=== PATIENT | female | born 1955 | race Two or more races ===

== ENCOUNTER 2021-10-30 09:39 | Outpatient (REF) | payer MEDICARE, MEDICAID, SELFPAY ==
[2021-10-30 11:17] LABS: Hematocrit 41.1 % (37.0-47.0); Hemoglobin 13.3 g/dl (12.0-16.0); Mean Corpuscular HGB Conc 32.4 g/dl (31.0-35.0); Mean Corpuscular Hemoglobin 27.4 pg (27.0-33.0); Mean Corpuscular Volume 84.7 fL (80.0-98.0); Mean Platelet Volume 10.4 fL (9.4-12.3); Platelet Count 265 X10*3/uL (160-400); Red Blood Count 4.85 X10*6/uL (4.20-5.50); Red Cell Distribution Width 13.5 % (11.0-16.0); White Blood Count 6.8 X10*3/uL (4.8-10.8)
[2021-10-30 12:20] LABS: TSH reflex Free T4 2.53 uIU/mL (0.32-4.0)
== END 2021-10-30 09:40 | disposition home or self-care (01) ==
LOC: HO.LAB 09:39
PROVIDERS: PCP Internal Medicine; Visit Provider Internal Medicine Cardiovascular Disease
DX: R00.2 Palpitations (principal); R06.00 Dyspnea, unspecified
CPT/HCPCS: 36415; 84443; 85027; 93005; 99202

== ENCOUNTER 2021-11-19 09:00 | Outpatient (REF) | payer OTHER, SELFPAY ==
--- NOTE | 2021-11-19 09:51 | HM_ITS ---
* Total monitoring time 4 days and 13 hours. * Underlying rhythm is sinus. Average rate 84/Min. Range 65 to 135/Min. * Very rare supraventricular and ventricular ectopy with minimal burden. * No significant pauses. * Patient diary not submitted. MTDD
--- NOTE | 2021-11-19 12:14 | PFT_ITS ---
INDICATION: Dyspnea. SPIROMETRY: FEV1 to FVC of 81% with an FEV1 of 2.06 L, which is 85% predicted; an FVC of 2.53 L, which is 82% predicted. No significant response to bronchodilators noted. Maximum voluntary ventilation 80% predicted. LUNG VOLUMES: Total lung capacity 86% predicted with an expiratory reserve volume of 37% predicted. DIFFUSION CAPACITY: DLCO 71% predicted. COMPARISONS: None. INTERPRETATION: No obstructive, nor restrictive ventilatory defects identified. No significant response to bronchodilators noted and normal maximum voluntary ventilation. Lung volumes are normal except for decrease in the expiratory reserve volume. The patient does have a mild isolated diffusion impairment. Should correct for hemoglobin. Otherwise, clinical correlation warranted. Arnol Hagen MD MR/MODL / [id number]
== END 2021-11-19 09:01 | disposition home or self-care (01) ==
LOC: HO.RESP 09:00
PROVIDERS: PCP Internal Medicine; Visit Provider Internal Medicine Cardiovascular Disease
DX: R06.00 Dyspnea, unspecified (principal); R00.2 Palpitations
CPT/HCPCS: 93242; 94060; 94727; 94729

== ENCOUNTER → 2022-01-27 13:51 | Outpatient (BNVA) | payer OTHER, SELFPAY | PROVIDERS: PCP Internal Medicine; Visit Provider Internal Medicine Cardiovascular Disease | DX: R00.2 Palpitations (principal); R06.00 Dyspnea, unspecified | CPT/HCPCS: 99212 ==

== ENCOUNTER → 2022-02-04 10:18 | Outpatient (REF) | payer OTHER, SELFPAY ==
--- NOTE | 2022-02-04 10:21 | CA_ITS ---
Acquisition Time: 2022-02-04 10:31:32 Total Exercise Time: 00:04:30 Test Indications: CP Medications: ALBUTEROL ASA ATORVASTATIN FAMOTIDINE FLONASE METOPROLOL Protocol: ANTHONY Max HR: 155 BPM 100% of Pred: 155 BPM Max BP: 196/040 mmHG Max Work Load: 6.3 METS Exercise stress test with exercise 4 min 30 sec of Anthony protocol, achieving 100% MPHR, with report of 7/10 mid chest burning and moderate sob, with rare isolated PAC, one PAC correlated with her feeling of heart palpitation, with normotensive response to exercise, with EKG changes meeting criteria for ischemia inferolateral leads. In recovery her breathing quickly improved and chest discomfort gradually lessened and resolved. Test reviewed with Dr Sarmiento Msjulia sent to Dr Camacho, her primary cloud automation tester. Referred By: Yosi Camacho Overread By: BHARATH QUINTANA
== END ==
LOC: HO.CARD 10:18
PROVIDERS: PCP Internal Medicine; Visit Provider Internal Medicine Cardiovascular Disease
DX: R06.00 Dyspnea, unspecified (principal)
CPT/HCPCS: 93017

== ENCOUNTER 2022-03-31 09:27 | Outpatient (REF) | payer OTHER, SELFPAY ==
[2022-03-31 09:53] LABS: Hematocrit 42.1 % (37.0-47.0); Hemoglobin 13.5 g/dl (12.0-16.0); Mean Corpuscular HGB Conc 32.1 g/dl (31.0-35.0); Mean Corpuscular Hemoglobin 27.7 pg (27.0-33.0); Mean Corpuscular Volume 86.3 fL (80.0-98.0); Mean Platelet Volume 10.7 fL (9.4-12.3); Platelet Count 276 X10*3/uL (160-400); Red Blood Count 4.88 X10*6/uL (4.20-5.50); Red Cell Distribution Width 13.2 % (11.0-16.0); White Blood Count 6.4 X10*3/uL (4.8-10.8)
[2022-03-31 09:56] LABS: Prothrombin Time 11.7 SEC (10.0-13.1)
[2022-03-31 10:50] LABS: Anion Gap 10 (12-20); Blood Urea Nitrogen 19 mg/dL (9-16); Calcium 9.9 mg/dL (8.4-10.2); Carbon Dioxide 28 mmol/L (22-29); Chloride 107 mmol/L (96-108); Estimated Glomerular Filt Rate 58; Glucose Random 90 mg/dL (60-115); Potassium 4.8 mmol/L (3.3-5.1); Sodium 140 mmol/L (135-145)
== END 2022-03-31 09:28 | disposition home or self-care (01) ==
LOC: HO.LAB 09:27
PROVIDERS: PCP Internal Medicine; Visit Provider Internal Medicine Cardiovascular Disease
DX: R94.39 Abnormal result of other cardiovascular function study (principal)
CPT/HCPCS: 36415; 80048; 85027; 85610

== ENCOUNTER 2022-04-28 13:50 | Outpatient (REF) | payer OTHER, SELFPAY ==
--- NOTE | 2022-04-28 17:07 | PFT_ITS ---
Forced vital capacity 80%, FEV1 80%, FEV1/FVC ratio is 78. [id number] 73% and MVV 91%. Post bronchodilator therapy, there is no significant change. Total lung capacity 85%. Residual volume 85%. Diffusion capacity 71%. CONCLUSION: Normal pulmonary function test and there is no evidence of any obstructive or restrictive pulmonary disorder. MD KYLER Mcdaniel/RANJANA / [id number]
== END 2022-04-28 13:51 | disposition home or self-care (01) ==
LOC: HO.RESP 13:50
PROVIDERS: PCP Internal Medicine; Visit Provider Internal Medicine Cardiovascular Disease
DX: R06.09 Other forms of dyspnea (principal)
CPT/HCPCS: 94060; 94727; 94729

== ENCOUNTER → 2022-06-05 15:28 | Outpatient (BNVA) | payer OTHER, SELFPAY | PROVIDERS: PCP Internal Medicine; Referring Provider Internal Medicine; Visit Provider Nurse Practitioner Family | DX: R06.09 Other forms of dyspnea (principal); R94.39 Abnormal result of other cardiovascular function study; R07.89 Other chest pain; I49.1 Atrial premature depolarization; Z98.890 Other specified postprocedural states | CPT/HCPCS: 93005; 99212 ==

== ENCOUNTER 2023-06-24 12:48 | Outpatient (AMB) | payer OTHER, SELFPAY ==
[2023-06-24 12:52] VITALS: BP 140/62; PULSE 86; BMI 27.6
--- NOTE | 2023-06-24 12:52 | A.OFFVIS_ITS ---
Vital Signs 06/24/23 12:52 Height 5 ft 5 in Weight 165 lb 12.602 oz BMI 27.6 BP 140/62 H Blood Pressure Location Lt brachial Position Sitting Pulse 86 Intake Visit Reasons: 1 yr f/up Photo Print Specialist Required: No Accompanied by: Self / Same As Patient Allergies No Known Allergies Allergy (Verified 06/05/22 15:37) Medication List - Last Reconciled 06/24/23 by Yosi Camacho MD acetaminophen 1,000 mg PO TID PRN albuterol sulfate 90 mcg/actuation (ProAir HFA) 2 puffs inhalation Q6H PRN aspirin 81 mg PO DAILY atorvastatin 40 mg PO BEDTIME cholecalciferol (vitamin D3) 50 mcg PO DAILY famotidine 40 mg PO BEDTIME fluticasone propionate 50 mcg/actuation 2 sprays intranasal DAILY lidocaine 5% 1 patch topical DAILY montelukast 10 mg PO DAILY nabumetone 500 mg PO QAM HPI Comments Details: 67-year-old female who is here for palpitations and dyspnea. She had extensive workup done in 2019 including Holter monitoring which did not show any arrhythmia. She also had cardiac catheterization with IFR and CFR coronary arteries showing no epicardial or microvascular disease. She is following with pulmonology and has been told that she does not have any significant pulmonary disease. She is here for follow-up today. She is complaining of dizziness and is describing vertigo. She had ear issues and previous tympanic membrane reconstruction on the right side. She is denying any tinnitus but is describing vertigo clearly. She also is getting palpitations. She is complaining of dyspnea with activities. A month ago she had was treated for pneumonia. Her blood workup and TSH was normal. We also did Holter monitoring for 4 days during which she had palpitations but Holter did not show any significant arrhythmia. I have explained all the testing to the patient in detail. 06/24/23: She returns for follow-up. She is saying that she gets palpitations when she is having asthma attack with chest tightness. She is using inhalers currently and is following with pulmonology. [facility] Surgical History S/P cardiac cath History of ear surgery History of section History of tonsillectomy History of cardiac cath Family History Mother Heart disease Cancer Father Stroke Social History Household Members: Children Household Members Other:: Son Alcohol intake: never Patient Tobacco Use Status: Never used Tobacco Current occupational status: retired Review of Systems Const Denies chills, Denies fatigue, Denies fever(s), Denies frequent falls, Denies weakness, Denies weight gain and Denies weight loss ENT Denies dizziness Card Denies chest pain, Denies leg edema, Denies lightheadedness, Denies palpitations, Denies dyspnea and Denies dyspnea on exertion Resp Denies cough, Denies dyspnea and Denies dyspnea on exertion GI Denies hematochezia Musc Denies abnormal gait, Denies muscle weakness, Denies numbness, Denies radiating pain into limb and Denies tingling Neuro Denies abnormal gait, Denies dizziness, Denies frequent falls, Denies numbness, Denies tingling and Denies weakness Endo Denies fatigue and Denies palpitations Physical Exam Vital Signs: Last Vital Signs Pulse 86 06/24/23 12:52 BP 140/62 H 06/24/23 12:52 BMI result Body Mass Index 27.6 GENERAL APPEARANCE: in no acute distress, pleasant. NECK: no carotid bruit, no jugular venous distention. SKIN: no suspicious lesions, warm and dry. HEART: no murmurs, regular rate and rhythm. LUNGS: clear to auscultation bilaterally. ABDOMEN: soft, nontender. EXTREMITIES: no edema. PERIPHERAL PULSES: equal. NEUROLOGIC: No gross deficits, AAO X 3 Office Procedures EKG Details: Sinus rhythm 86 beats per minute, normal axis, normal ECG, QTC 439 milliseconds. [id number], Complete Assessment & Plan Assessment & Plan (1) Dyspnea: Code(s): R06.00 - Dyspnea, unspecified Category: Medical (2) Palpitations: Code(s): R00.2 - Palpitations Category: Medical Plan Pleasant 67-year-old female who is here for follow-up. She previously had extensive workup which did not reveal any obvious cardiovascular issues. She underwent Holter monitoring recently which again did not show any arrhythmia to explain her palpitations. She is saying when she walks she gets out of breath and gets significant palpitations. It appears these symptoms are related to asthma and maybe anxiety due to asthma attack. No objective evidence of any cardiovascular issues so far. She will see us back in 1 year. Thank you for allowing me to participate in the care of your patient. Please feel free to contact me if you have any questions. Coding Level of Care Code Est Pt Level 3 (97727) Diagnoses Dyspnea R06.00 Palpitations R00.2 CPT Codes EKG - CPT: 73836-[id number], Complete ([id number])
== END 2023-06-24 13:19 | disposition home or self-care (01) ==
PROVIDERS: Visit Provider Internal Medicine Cardiovascular Disease
DX: R06.00 Dyspnea, unspecified (principal); R00.2 Palpitations
CPT/HCPCS: 93010; 99213

== ENCOUNTER → 2023-06-24 12:48 | Outpatient (BNVA) | payer OTHER, SELFPAY | PROVIDERS: Visit Provider Internal Medicine Cardiovascular Disease | DX: R06.00 Dyspnea, unspecified (principal); R00.2 Palpitations | CPT/HCPCS: 93005; 99212 ==

== ENCOUNTER 2024-07-11 10:28 | Outpatient (AMB) | payer OTHER, SELFPAY ==
--- NOTE | 2024-07-11 10:46 | MHC.OFFVIS ---
Vital Signs 07/11/24 10:49 Height 5 ft 5 in Weight 164 lb 7.437 oz BMI 27.4 BP 130/60 Blood Pressure Location Lt brachial Position Sitting Pulse 83 Pulse Source Monitor Intake Visit Reasons: 1 yr f/up (rs) Intake Note: 1 yr f/up Maintenance Helper Required: No Accompanied by: Self / Same As Patient Allergies No Known Allergies Allergy (Verified 06/05/22 15:37) Medication List - Last Reconciled 07/11/24 by Yosi Camacho MD acetaminophen 1,000 mg PO TID PRN albuterol sulfate 90 mcg/actuation (ProAir HFA) 2 puffs inhalation Q6H PRN aspirin 81 mg PO DAILY atorvastatin 40 mg PO BEDTIME cholecalciferol (vitamin D3) 50 mcg PO DAILY famotidine 40 mg PO BEDTIME fluticasone propionate 50 mcg/actuation 2 sprays intranasal DAILY montelukast 10 mg PO DAILY nabumetone 500 mg PO QAM HPI Comments Details: 68-year-old female who is here for palpitations and dyspnea. She had extensive workup done in 2019 including Holter monitoring which did not show any arrhythmia. She also had cardiac catheterization with IFR and CFR coronary arteries showing no epicardial or microvascular disease. She is following with pulmonology and has been told that she does not have any significant pulmonary disease. She is here for follow-up today. She is complaining of dizziness and is describing vertigo. She had ear issues and previous tympanic membrane reconstruction on the right side. She is denying any tinnitus but is describing vertigo clearly. She also is getting palpitations. She is complaining of dyspnea with activities. A month ago she had was treated for pneumonia. Her blood workup and TSH was normal. We also did Holter monitoring for 4 days during which she had palpitations but Holter did not show any significant arrhythmia. I have explained all the testing to the patient in detail. 06/24/23: She returns for follow-up. She is saying that she gets palpitations when she is having asthma attack with chest tightness. She is using inhalers currently and is following with pulmonology. 07/11/2024: she is here for follow-up. She is saying that since he has started using the inhalers her breathing is improved. Denying any chest discomfort. Overall feeling much better compared to before. PFSH Surgical History S/P cardiac cath History of ear surgery History of section History of tonsillectomy History of cardiac cath Family History Mother Heart disease Cancer Father Stroke Social History Household Members: Children Household Members Other:: Son Alcohol intake: never Patient Tobacco Use Status: Never used Tobacco Current occupational status: retired Review of Systems Const Denies chills, Denies fatigue, Denies fever(s), Denies frequent falls, Denies weakness, Denies weight gain and Denies weight loss ENT Denies dizziness Card Denies chest pain, Denies leg edema, Denies lightheadedness, Denies palpitations, Denies dyspnea and Denies dyspnea on exertion Resp Denies cough, Denies dyspnea and Denies dyspnea on exertion GI Denies hematochezia Musc Denies abnormal gait, Denies muscle weakness, Denies numbness, Denies radiating pain into limb and Denies tingling Neuro Denies abnormal gait, Denies dizziness, Denies frequent falls, Denies numbness, Denies tingling and Denies weakness Endo Denies fatigue and Denies palpitations Physical Exam Vital Signs: Last Vital Signs Pulse 83 07/11/24 10:49 BP 130/60 07/11/24 10:49 BMI result Body Mass Index 27.4 GENERAL APPEARANCE: in no acute distress, pleasant. NECK: no carotid bruit, no jugular venous distention. SKIN: no suspicious lesions, warm and dry. HEART: no murmurs, regular rate and rhythm. LUNGS: clear to auscultation bilaterally. ABDOMEN: soft, nontender. EXTREMITIES: no edema. PERIPHERAL PULSES: equal. NEUROLOGIC: No gross deficits, AAO X 3 Office Procedures EKG Details: Sinus rhythm with occasional premature ventricular complexes, normal axis, QTC 425 milliseconds. [id number], Complete Assessment & Plan Assessment & Plan (1) Dyspnea: Code(s): R06.00 - Dyspnea, unspecified Category: Medical (2) Palpitations: Code(s): R00.2 - Palpitations Category: Medical Plan Pleasant 68-year-old female who is here for follow-up. She previously had extensive workup which did not reveal any obvious cardiovascular issues. She underwent Holter monitoring recently which again did not show any arrhythmia to explain her palpitations. She continues to have some palpitation but overall is feeling better. She is saying her breathing is improved with inhalers at this stage clinically stable and feeling better. She will see us back in a year. Thank you for allowing me to participate in the care of your patient. Please feel free to contact me if you have any questions. Coding Level of Care Code Est Pt Level 3 (51842) Diagnoses Dyspnea R06.00 Palpitations R00.2 CPT Codes EKG - CPT: 91617-[id number], Complete ([id number])
[2024-07-11 10:49] VITALS: BP 130/60; PULSE 83; BMI 27.4
--- OUTSIDE RECORDS SUMMARY | 2024-07-11 11:04 | XMS_ITS | Clinical Summary ---
Author Organization [employer] Address [address] [place] [address] Care Team Providers Care Sheltered Workshop Executive Director Name Role Phone Jessy Andersen GEOVANNA Primary Care Provider [phone] Allergies Active Allergy Reactions Criticality Noted Date Comments Amoxicillin-Pot Clavulanate Dizziness,Nausea,Vomiting Medi um 03/14/2024 Medications cholecalciferol (Vitamin D3) 200 Unit tablet split tablet TAKE 1 CAPSULE BY MOUTH EVERY DAY 023 Active acetaminophen (Tylenol) 500 MG tablet Take 1,000 mg by mouth if needed in the morning, at noon, and at bedtime. 022 Active albuterol 108 (90 Base) MCG/ACT inhaler TAKE 2 PUFFS BY MOUTH EVERY 6 HOURS NEEDED 022 Active ciclopirox (Penlac) 8 % solution Apply topically daily. 023 Active famotidine (Pepcid) 40 MG tablet TAKE 1 TABLET BY MOUTH EVERYDAY AT BEDTIME ORALLY ONCE A DAY 30 DAYS 023 Active montelukast (Singulair) 10 MG tablet Take 10 mg by mouth in the morning. 023 Active dicyclomine (Bentyl) 10 MG capsule Take 10 mg by mouth if needed in the morning and at bedtime. 024 Active Diclofenac Sodium 1 % gel APPLY 4 GRAMS TO EACH KNEE UP TO 4 TIMES DAILY NEEDED 024 Active atorvastatin (Lipitor) 20 MG tabletIndications :Hyperlipidemia, unspecified hyperlipidemia type Take 1 tablet (20 mg) by mouth at bedtime. 90 tablet 3 024 2024 Active Aspirin Low Dose 81 MG EC tabletIndications :TIA (transient ischemic attack),Atheroscl erosis of sycuan coronary artery of sycuan heart without angina pectoris TAKE 1 TABLET (81 MG) BY MOUTH IN THE MORNING 90 tablet 3 024 Active ipratropium-albut thierno (Duo-Neb) 0.5-2.5 mg/3 mL nebulizer solutionIndicatio ns:Mild intermittent asthma with exacerbation Take 3 mL by nebulization if needed in the morning, at noon, in the evening, and at bedtime for wheezing. 180 mL 025 Active Nebulizer miscIndications:M ild intermittent asthma with exacerbation 1 Units if needed (asthma). 1 each 025 Active Respiratory Therapy Supplies (Nebulizer Mask Adult/Tubing) miscIndications:M ild intermittent asthma with exacerbation 1 Units Every 4-6 hours as needed (asthma). 1 each 025 Active nabumetone (Relafen) 500 MG tabletIndications :Fibromyalgia TAKE 1 TABLET (500 MG) BY MOUTH ONCE PER DAY. TAKE WITH FOOD 90 tablet 025 Active fluticasone (Flonase) 50 MCG/ACT nasal spray ADMINISTER 1 SPRAY INTO EACH NOSTRIL ONCE PER DAY. SHAKE GENTLY. CLEAN TIP AND REPLACE CAP. 48 mL 1 025 Active fluticasone (Flonase) 50 MCG/ACT nasal spray Administer 1 spray into each nostril Once per day. Shake gently. Before first use, prime pump. After use, clean tip and replace cap. 16 g 3 025 2024 Discontinued Active Problems Problem Noted Date Diagnosed Date Fibromyalgia 12/23/2023 Elevated rheumatoid factor 12/23/2023 Primary osteoarthritis of both hips 09/17/2023 Chronic bilateral low back pain without sciatica 09/17/2023 Gastroesophageal reflux dise ase with esophagitis without hemorrhage 09/17/2023 TIA (transient ischemic attack) 11/11/2022 Mild persistent asthma without complication 110 04/2021 Atherosclerosis of coronary artery of sycuan hea rt 08/01/2021 Hyperlipidemia 08/01/2021 Overview (11/10/2022): Last Assessment & Plan: Controlled on meds Degenerative disc disease, lumbar 01/21/2019 Primary osteoarthritis of both knees 01/21/2019 Resolved Problems Problem Noted Date Diagnosed Date Resolved Date Palpitations 08/01/2021 11/11/2022 Overview (11/10/2022): Last Assessment & Plan: Unclear etiology Patient currently being evaluated by Cardiology for this Encounters Date Type Department Care Team Description 06/22/2024 10:20 AM EDT Office Visit [facility] [address] [place] [address] [facility] Memory problem (Primary Dx); Balance problem; Tremor; Moderate persistent asthma without complication; Fibromyalgia 06/14/[address] [facility] [address] [place] [address] Jessy Andersen FNP from Last 3 Months Immunizations Name Administration Dates Next Due Influenza injectable quadriv alent preservative free 10/29/2015,01/19/2015 Pfizer Covid-19 Vaccine 12+ 02/05/2021,,06/11/2020 Tdap 10/12/2014 Family History Medical History Relation Name Comments Coronary artery disease Brother Stroke Father Liver cancer Mother Diabetes Sister Kidney disease Sister Autism Son Developmental delay Son Seizures Son Relation Name Status Comments Brother Father Mother Sister Son Social History Tobacco Use Types Packs/Day Years Used Date Smoking Tobacco: Never Smokeless Tobacco: Never Tobacco Cessation:Counseling Given: Not Answered Alcohol Use Standard Drinks/Week Comments Never 0 (1 standard drink = 0.6 oz pur e alcohol) Housing Stability Answer Date Recorded What is your housing situation today? I have [place] 09/17/[address] you li ve. Do you have problems with any of the following? None of the above 09/17/2023 Food Insecurity Answer Date Recorded Within the past 12 months, y ou worried that your food would run out before you got money to buy more: Never True 09/17/2023 Within the past 12 months,th e food you bought just didn't last and you didn't have enough money to get more: Never True Transportation Answer Date Recorded In the past 12 months, has l ack of transportation kept you from medical appts, meetings, work or from getting things needed for daily living? No 09/17/2023 Utilities Answer Date Recorded In the past 12 months, has t he electric, gas, oil or water company threatened to shut off services in your home? No 09/17/2023 Depression Answer Date Recorded Patient Health Questionnaire-2 Score 0 06/22/2024 Internet Access Answer Date Recorded Internet Access Q1 Yes 11/02/2023 Internet Access Q2 Not on file 11/02/2023 Comments Unknown Sex and Gender Information Value Date Recorded Sex Assigned at Female 10/01/2022 1:17 PM EDT Legal Sex Female 1:15 PM EDT Gender Identity Female 10/01/2022 1:17 PM EDT Sexual Orientation Straight 10/01/2022 1: 17 PM EDT Last Filed Vital Signs Vital Sign Reading Time Taken Comments Blood Pressure 133/73 06/22/2024 10:05 AM EDT Pulse 82 06/22/2024 10:05 AM EDT Temperature 37.1 ??C (98.8 ??F) 06/22/2024 1 0:05 AM EDT Respiratory Rate 18 11/10/2022 2:48 PM EDT Oxygen Saturation 96% 06/22/2024 10: 05 AM EDT Inhaled Oxygen Concentration - - Weight 76.1 kg (167 lb 12.8 oz) 025 10:05 AM EDT Height 162.6 cm (5' 4 ) 06/22/2024 10:0 5 AM EDT Body Mass Index 28.8 06/22/2024 10:05 AM EDT Plan of Treatment Upcoming Encounters Date Type Department Care Team (Late st Contact Info) Description 09/22/2024 11:40 AM EDT Office Visit [facility] [address] [place] [address] [facility] [address] [place] [address] Health Maintenance Due Date Last Done Comments CT Colonography 1956 FIT DNA/Cologuard 1956 FIT 1956 FOBT 1956 Sigmoidoscopy 1956 Alcohol/Substance Use Screening 1968 Hepatitis C Screening 1974 RSV Patients and Patients Aged 60 years or older (1 - Risk 60-74 years 1-dose series) 2016 COVID-19 Vaccine ( season) 2023 02/05/2021, 07/02/2020, 06/11/2020 Influenza Vaccine (#1) 2023 10/29/2015, 2014 Pneumococcal Vaccine: 50+ Years (1 of 2 - PCV) 09/16/2024 Postponed from 10/20/1975 (Patient Refused) Zoster Vaccines (1 of 2) 09/16/2024 Pos tponed from 2006 (Patient Refused) DTaP/Tdap/Td Vaccines (2 - Td or Tdap) 10/12/2024 10/12/2014 Mammogram 02/03/2025 02/03/2023, 06/2022, 02/03/2023, Additional history exists Depression Screening 06/22/2025 06/22/2024, 06/23/19 25 SDOH Screening 06/22/2025 06/22/2024 Tobacco Screening 06/22/2025 06/22/2024 Colonoscopy 08/12/2028 08/12/2018 Colorectal Cancer Screening 08/12/2028 Lipid Panel 12/15/2028 12/16/2023, 020 10/2023, 11/13/2022 HIB Vaccines Aged Out No longer eligi ble based on patient's age to complete this topic HPV Vaccines Aged Out No longer eligi ble based on patient's age to complete this topic Hepatitis A Vaccines Aged Out No long er eligible based on patient's age to complete this topic Hepatitis B Vaccines Aged Out No long er eligible based on patient's age to complete this topic IPV Vaccines Aged Out No longer eligi ble based on patient's age to complete this topic Meningococcal Vaccine Aged Out No curt steven eligible based on patient's age to complete this topic RSV under 20 months Aged Out No longe r eligible based on patient's age to complete this topic Rotavirus Vaccines Aged Out No longer eligible based on patient's age to complete this topic Procedures Procedure Name Priority Date/Time Associated Diagnosis Comments BASIC METABOLIC PANEL Routine 07/04/2024 Memory problem RPR (DX) W/REFL TITER AND CONFIRMATORY TESTING Routine 07/04/2024 Memory problem VITAMIN B12 Routine 07/04/2024 Memory problem TSH Routine 07/04/2024 Memory problem LIPID PANEL, STANDARD Routine 12/16/2023 Hyperlipidemia, unspecified hyperlipidemia type HM MAMMOGRAPHY Routine 02/03/2023 HM COLONOSCOPY Routine 08/12/2018 from Last 3 Months or Most Recently Relevant to Health Maintenance Results * RPR (Diagnosis) with Reflex to Titer??and Confirmatory Testing (07/04/2024) [facility] LAB BLOOD ORDERABLES Ana l Result Performing Organization Address [facility] Co de Phone Number EXTERNAL LAB * TSH (07/04/2024) Blood Venous blood specimen / Unknown [facility] LAB BLOOD ORDERABLES Ana l Result Performing Organization Address [facility] Co de Phone Number EXTERNAL LAB * Vitamin B12 (07/04/2024) Blood Venous blood specimen / Unknown [facility] LAB BLOOD ORDERABLES Ana l Result Performing Organization Address [facility]/ZIP Co de Phone Number EXTERNAL LAB * Basic Metabolic Panel (07/04/2024) Blood Venous blood specimen / Unknown [facility] LAB BLOOD ORDERABLES Ana l Result Performing Organization Address [place]/[facility]/ZIP Co de Phone Number EXTERNAL LAB * Lipid Panel, Standard (12/16/2023) Blood Venous blood specimen / Unknown [facility] LAB BLOOD ORDERABLES Ana l Result EXTERNAL LAB * Mammography (02/03/2023) Anatomical Region Laterality Modality Other [facility] Edited Result - Final * Colonoscopy (08/12/2018) Colonoscopy Normal Normal [facility] HEALTH MAINTENANCE Final Result from Last 3 Months or Most Recently Relevant to Health Maintenance Insurance [facility] STANDARD Care Teams Sheltered Workshop Executive Director Relationship Specialty Start Date End Date [facility] [address] [place] [address] PCP - General Family Medicine 10/01/22
--- OUTSIDE RECORDS SUMMARY | 2024-07-11 11:04 | XMS_ITS | Encounter Summary ---
Author Organization [employer] Address [address] [facility] [address] [place] [address] Care Team Providers Care Field Broomer Name Role Phone [facility] Primary Care Provider [phone] Encounter Details Date Type Department Care Team (Late st Contact Info) Description 08/12/2023 Orders Only [facility] [address] [place] [address] [facility] [address] [place] [address] Rheumatoid arthritis with positive rheumatoid factor, involving unspecified site ([facility]) Social History Tobacco Use Types Packs/Day Years Used Date Smoking Tobacco: Never Smokeless Tobacco: Never Alcohol Use Standard Drinks/Week Comments Never 0 (1 standard drink = 0.6 oz pur e alcohol) Depression Answer Date Recorded Patient Health Questionnaire-2 Score 0 11/10/2022 Comments Unknown Sex and Gender Information Value Date Recorded Sex Assigned at Female 10/01/2022 1:17 PM EDT Legal Sex Female 1:15 PM EDT Gender Identity Female 10/01/2022 1:17 PM EDT Sexual Orientation Straight 10/01/2022 1: 17 PM EDT documented as of this encounter Plan of Treatment Upcoming Encounters Date Type Department Care Team (Late st Contact Info) Description 09/22/2024 11:40 AM EDT Office Visit [facility] [address] [place] [address] [facility] [address] [place] [address] documented as of this encounter Procedures Procedure Name Priority Date/Time Associated Diagnosis Comments AMB REFERRAL TO RHEUMATOLOGY Routine 05/29/2023 Rheumatoid arthritis with positive rheumatoid factor, involving unspecified site ([facility]) documented in this encounter Results * Referral to Rheumatology (05/29/2023) [facility] OUTPATIENT REFERRAL ORDER GABBI Final Result documented in this encounter Visit Diagnoses Diagnosis Rheumatoid arthritis with positive rheumatoid factor, involving unspecified site ([facility]) documented in this encounter Care Teams Field Broomer Relationship Specialty Start Date End Date [facility] [address] [place] [address] PCP - General Family Medicine 10/01/22 documented as of this encounter
--- OUTSIDE RECORDS SUMMARY | 2024-07-11 11:04 | XMS_ITS | Encounter Summary ---
Author Organization [employer] Address [address] [facility] 7[address] [place] [address] Care Team Providers Care Php Mysql Web Developer Name Role Phone [facility] Primary Care Provider [phone] Encounter Details Date Type Department Care Team (Late st Contact Info) Description 02/06/2023 Orders Only [facility] Information Management [address] [place] [address] [place], [place] [facility] [address] [place] [address] Social History Tobacco Use Types Packs/Day Years [...] Description 09/22/2024 11:40 AM EDT Office Visit [place] [facility] [address] [place] [address] [place], [place] [facility] [address] [place] [address] documented as of this encounter Procedures Procedure Name Priority Date/Time Associated Diagnosis Comments MAMMOGRAPHY Routine 02/03/2023 documented in this encounter Results * Mammography (02/03/2023) Anatomical Region Laterality Modality Other Jessy Andersen [facility] Result - Final documented in this encounter Visit Diagnoses Not on filedocumented in this encounter Care Teams Php Mysql Web Developer Relationship Specialty Start Date End Date Jessy Andersen FNP [address] [facility] [place] [address] PCP - General Family Medicine 10/01/22 documented as of this encounter
== END 2024-07-11 11:18 | disposition home or self-care (01) ==
LOC: HO.HCS 10:28
PROVIDERS: PCP Internal Medicine; Visit Provider Internal Medicine Cardiovascular Disease
DX: R06.00 Dyspnea, unspecified (principal); R00.2 Palpitations
CPT/HCPCS: 93010; 99213

== ENCOUNTER → 2024-07-11 10:28 | Outpatient (BNVA) | payer OTHER, SELFPAY | PROVIDERS: PCP Internal Medicine; Visit Provider Internal Medicine Cardiovascular Disease | DX: R06.00 Dyspnea, unspecified (principal); R00.2 Palpitations | CPT/HCPCS: 93005; 99212 ==

== ENCOUNTER 2024-08-29 09:28 | Outpatient (AMB) | payer OTHER, SELFPAY ==
--- NOTE | 2024-08-29 09:34 | MHC.OFFVIS ---
Vital Signs 08/29/24 09:35 Height 5 ft 5 in Weight 169 lb BMI 28.1 BP 118/86 Blood Pressure Location Rt brachial Position Sitting Pulse 83 Pulse Source Pulse Oximeter Pulse Oximetry (%) 98 Oxygen Delivery Method Room Air Intake Visit Reasons: ENP - Gait Instability, Tremor Intake Note: Patient referred for gait instability Allergies No Known Allergies Allergy (Verified 08/29/24 09:37) Medication List - Last Reconciled 08/29/24 by Brooke Pressley MD acetaminophen 1,000 mg PO TID PRN albuterol sulfate 90 mcg/actuation (ProAir HFA) 2 puffs inhalation Q6H PRN aspirin 81 mg PO DAILY atorvastatin 40 mg PO BEDTIME cholecalciferol (vitamin D3) 50 mcg PO DAILY famotidine 40 mg PO BEDTIME fluticasone propionate 50 mcg/actuation 2 sprays intranasal DAILY montelukast 10 mg PO DAILY nabumetone 500 mg PO QAM HPI Comments Details: 68y/o female comes for evaluation of memory issues, gait instability and tremors. she started noticing short term memory issues- more than 3 years ago.she has word recall difficulties. It is progressively worse in the past few years. she frequently jiménez her food so she is not cooking any more, she misplaces things and loses things etc. Driving is Ok for familiar places. she has trouble remembering names . she reports multiple mild head injuries since childhood mood is stable SLeep- ok , has loud snoring . No known family h/o dementia Tremors- she reports feeling inner tremors 2 years ago.she packer snot see tremors in her hands but feels like her whole body is shaking inside.The tremors are intermittent but no triggering effects. she feels it mostly when she is sitting. Gait difficulty- she feels like she is off balance and feels she goes to side. No falls.she has chronic back pain. [facility] Medical History (Updated 08/29/24 @ 10:13 by Brooke Pressley MD) Gait instability Hypersomnia Snoring Cognitive impairment Surgical History S/P cardiac cath History of ear surgery History of section History of tonsillectomy History of cardiac cath Family History Mother Heart disease Cancer Father Stroke Social History Household Members: Children Household Members Other:: Son Alcohol intake: never Patient Tobacco Use Status: Never used Tobacco Current occupational status: retired Physical Exam Vital Signs: Last Vital Signs Pulse 83 08/29/24 09:35 BP 118/86 08/29/24 09:35 Pulse Ox 98 08/29/24 09:35 Oxygen Delivery Method Room Air 08/29/24 09:35 BMI result Body Mass Index 28.1 Const General: cooperative, healthy appearing, comfortable and no acute distress Nutritional Appearance: average body habitus Orientation/consciousness: patient oriented x3 Eyes Pupils: Equal, round and reactive pupils present Neuro General: patient oriented x3, gait normal, tone normal, moves all extremities and no focal motor deficits Cranial nerves: Yes Facial sensation intact/muscles of mastication intact, Yes Equal, round and reactive pupils present, Yes Nystagmus not present, Yes Normal facial strength present, Yes Midline tongue present, Yes Symmetric palate elevation present and Yes Ability to bilaterally elevate shoulders present Cognition (Neuro): normal cognition Gait exam (Neuro): Normal gait present Motor exam (neuro): 5/5 motor strength present throughout and Normal motor muscle tone present throughout Deep tendon reflexes (DTR's): Right triceps reflex intensity grade: 1+, Left triceps reflex intensity grade: 1+, Rt Biceps (C5, C6): 1+, Left biceps reflex intensity grade: 1+, Right brachioradialis reflex intensity grade: 1+, Left brachioradialis reflex intensity grade: 1+, Right patellar reflex intensity grade: 2+ and Left patellar reflex intensity grade: 2+ Coordination: [id number] test normal Orientation What is the (year) (season) (date) (day) (month)?: year, season, date, day and month Where are we (state) (county) (town or city) (hospital) (floor)?: state, town or city, hospital/clinic and floor Registration Name of 3 unrelated objects clearly and slowly, then ask patient to repeat all 3 of them. (1st repeat determines score. Make sure they can repeat all three): object 1, object 2 and object 3 Attention & Calculation (CHOOSE ONE) Spell WORLD backwards (DLROW): 5 letters Recall Ask patient to repeat the 3 items from question #3.: object 1 and object 3 Language Show patient a wristwatch & ask what it is. Repeat for pencil.: watch and pencil Ask the patient to repeat the phrase 'No ifs, ands, or buts' after you.: correct Ask the patient to 'take a piece of paper with their right hand' 'fold paper in half' 'place paper on floor': take paper in right hand, fold paper in half and place paper on floor Print the sentence 'CLOSE YOUR EYES' on a piece. If patient actually closes eyes then score.: followed written direction Give patient a blank piece of paper & ask to write a sentence. Score if it contains a noun & verb.: sentence contains subject and verb Ask patient to copy figure of intersecting pentagons exactly. Score if all 10 angles & 2 intersects are included.: all 10 angles present & 2 are intersected Score Score: 28 Assessment & Plan Assessment & Plan (1) Cognitive impairment: Comment: ? stress ? mild cognitive impairment Code(s): R41.89 - Other symptoms and signs involving cognitive functions and awareness Category: Medical (2) Snoring: Code(s): R06.83 - Snoring Category: Medical (3) Hypersomnia: Code(s): G47.10 - Hypersomnia, unspecified Category: Medical Plan MRI brain results reviewed- mild white matter Check B12 TSH Vit D ESR CBC CMP Cognitive evaluation and therapy PT gait Sleep study to r/o sleep apnea. Orders: Orders Vitamin B12 and Folate Today R41.89 - Other symptoms and signs involving cognitive functions and awareness TSH reflex Free T4 Today R41.89 - Other symptoms and signs involving cognitive functions and awareness Erythrocyte Sedimentation Rate Today R41.89 - Other symptoms and signs involving cognitive functions and awareness Comprehensive Met. Panel Today R41.89 - Other symptoms and signs involving cognitive functions and awareness PT Evaluation and Treatment Today R26.81 - Unsteadiness on feet RT home sleep study Today G47.10 - Hypersomnia, unspecified, R06.83 - Snoring Complete Blood Count Auto Diff Today R41.89 - Other symptoms and signs involving cognitive functions and awareness Referrals Speech and Hearing Referral R41.89 - Other symptoms and signs involving cognitive functions and awareness Coding Level of Care Code New Pt Level 4 (06490) Complex EM visit Add On G2211 Diagnoses Cognitive impairment R41.89 Snoring R06.83 Hypersomnia G47.10
[2024-08-29 09:35] VITALS: BP 118/86; PULSE 83; O2SAT 98; BMI 28.1
--- OUTSIDE RECORDS SUMMARY | 2024-08-29 09:48 | XMS_ITS | Clinical Summary ---
Author Organization [employer] Address [address] [facility] 7[address] [place] [address] Care Team Providers Care Cardiovascular Sonographer Name Role Phone Nathaly Jessy [place] Primary Care Provider [phone] Allergies Active Allergy Reactions Criticality Noted Date Comments Amoxicillin-Pot Clavulanate Dizziness,Nausea,Vomiting Medi um 03/14/2024 Medications cholecalciferol (Vitamin D3) 200 Unit tablet split tablet TAKE 1 CAPSULE BY MOUTH EVERY DAY 04/08/19 23 Active acetaminophen (Tylenol) 500 MG tablet Take 1,000 mg by mouth if needed in the morning, at noon, and at bedtime. 09/12/19 22 Active albuterol 108 (90 Base) MCG/ACT inhaler TAKE 2 PUFFS BY MOUTH EVERY 6 HOURS NEEDED 10/29/19 22 Active ciclopirox (Penlac) 8 % solution Apply topically daily. 05/30/19 23 Active famotidine (Pepcid) 40 MG tablet TAKE 1 TABLET BY MOUTH EVERYDAY AT BEDTIME ORALLY ONCE A DAY 30 DAYS 09/20/19 23 Active montelukast (Singulair) 10 MG tablet Take 10 mg by mouth in the morning. 10/20/19 23 Active dicyclomine (Bentyl) 10 MG capsule Take 10 mg by mouth if needed in the morning and at bedtime. 04/21/19 24 Active Diclofenac Sodium 1 % gel APPLY 4 GRAMS TO EACH KNEE UP TO 4 TIMES DAILY NEEDED 05/29/19 24 Active atorvastatin (Lipitor) 20 MG tabletIndications: Hyperlipidemia, unspecified hyperlipidemia type Take 1 tablet (20 mg) by mouth at bedtime. 90 tablet 3 09/17/19 24 025 Active Aspirin Low Dose 81 MG EC tabletIndications: TIA (transient ischemic attack),Atheroscle rosis of [place] coronary artery of [place] heart without angina pectoris TAKE 1 TABLET (81 MG) BY MOUTH IN THE MORNING 90 tablet 3 11/27/19 24 Active ipratropium-albute rol (Duo-Neb) 0.5-2.5 mg/3 mL nebulizer solutionIndication s:Mild intermittent asthma with exacerbation Take 3 mL by nebulization if needed in the morning, at noon, in the evening, and at bedtime for wheezing. 180 mL 03/11/19 25 Active Nebulizer miscIndications:Mi ld intermittent asthma with exacerbation 1 Units if needed (asthma). 1 each 03/11/19 25 Active Respiratory Therapy Supplies (Nebulizer Mask Adult/Tubing) miscIndications:Mi ld intermittent asthma with exacerbation 1 Units Every 4-6 hours as needed (asthma). 1 each 03/11/19 25 Active fluticasone (Flonase) 50 MCG/ACT nasal spray ADMINISTER 1 SPRAY INTO EACH NOSTRIL ONCE PER DAY. SHAKE GENTLY. CLEAN TIP AND REPLACE CAP. 48 mL 1 06/15/19 25 Active nabumetone (Relafen) 500 MG tabletIndications: Fibromyalgia TAKE 1 TABLET (500 MG) BY MOUTH ONCE PER DAY. TAKE WITH FOOD 90 tablet 07/22/19 25 Active Active Problems Problem Noted Date Diagnosed Date Fibromyalgia 12/23/2023 Elevated rheumatoid factor 12/23/2023 Primary osteoarthritis of both hips 09/17/2023 Chronic bilateral low back pain without sciatica 09/17/2023 Gastroesophageal reflux dise ase with esophagitis without hemorrhage 09/17/2023 TIA (transient ischemic attack) 11/11/2022 Mild persistent asthma without complication 04/2021 Atherosclerosis of coronary artery of [place] hea rt 08/01/2021 Hyperlipidemia 08/01/2021 Overview (11/10/2022): Last Assessment & Plan: Controlled on meds Degenerative disc disease, lumbar 01/21/2019 Primary osteoarthritis of both knees 01/21/2019 Resolved Problems Problem Noted Date Diagnosed Date Resolved Date Palpitations 08/01/2021 11/11/2022 Overview (11/10/2022): Last Assessment & Plan: Unclear etiology Patient currently being evaluated by Cardiology for this Encounters Date Type Department Care Team Description 08/08/2024 Results Follow-Up [facility] [address] [place] [address] [place], [place] [facility] MR Brain w/o Contrast 07/20/2024 [place]ill [place] [address] [address] [place], [place] [facility] Fibromyalgia 06/22/2024 10:20 AM EDT Office Visit [place] [facility] Britta [facility] [place] [address] [place], [place] [facility] Memory problem (Primary Dx); Balance problem; Tremor; Moderate persistent asthma without complication; Fibromyalgia 06/14/2024 Refill [place] [facility] [address] [facility] [place] [address] [place], [place] [facility] from Last 3 Months Immunizations Immunization Administration Dates Next Due Influenza injectable quadriv [...] is your housing situation today? I have chucky tapia 09/17/[address] you [...] 82 06/22/2024 10:05 AM EDT Temperature 37.1 C (98.8 F) 06/22/2024 10:05 AM EDT Respiratory Rate 18 11/10/2022 2:48 [...] 09/22/2024 11:40 AM EDT Office Visit Gerhard [facility] [address] [place] [address] Jessy Andersen, RN MIDWIFE [address] [place] [address] Health Maintenance Due Date Last Done Comments CT Colonography 1956 Dental Oral Exam 1956 Dental Prophylaxis 1956 Dental X-Ray: Bitewings 1956 Dental X-Ray: Full Mouth 1956 FIT DNA/Cologuard 1956 FIT 1956 FOBT 1956 Sigmoidoscopy 1956 Alcohol/Substance Use Screening 1968 Hepatitis C Screening 1974 RSV Patients and Patients Aged 60 years or older (1 - Risk 60-74 years 1-dose series) 2016 COVID-19 Vaccine (2023- season) 2023 02/05/2021, 07/02/2020, 06/11/2020 Pneumococcal Vaccine: 50+ Years (1 of 2 - PCV) 09/16/2024 Postponed from 10/20/1975 (Patient Refused) Zoster Vaccines (1 of 2) 09/16/2024 Pos tponed from 2006 (Patient Refused) DTaP/Tdap/Td Vaccines (2 - Td or Tdap) 10/12/2024 10/12/2014 Influenza Vaccine (Season Ended) 2024 10/29/2015, 01/19/2015 Mammogram 02/03/2025 02/03/2023, 06/2022, 02/03/2023, Additional history exists Depression Screening 06/22/2025 06/22/2024, 06/23/19 SDOH Screening 06/22/2025 06/22/2024 Tobacco Screening 06/22/2025 06/22/2024 Colonoscopy 08/12/2028 08/12/2018 Colorectal Cancer Screening 08/12/2028 Lipid Panel 12/15/2028 12/16/2023, 0 10/2023, 04/09/2023, Additional history exists HIB Vaccines Aged Out No longer eligi [...] patient's age to complete this topic Meningococcal B Vaccine Aged Out No l onger eligible based on patient's age to complete [...] Procedure Name Priority Date/Time Associated Diagnosis Comments MR BRAIN WO CONTRAST Routine 07/29/2024 Memory problem Balance problem Tremor BASIC METABOLIC PANEL Routine 07/04/2024 Memory problem RPR (DX) W/REFL TITER AND CONFIRMATORY TESTING Routine 07/04/2024 Memory problem VITAMIN B12 Routine 07/04/2024 Memory problem TSH Routine 07/04/2024 Memory problem LIPID PANEL, STANDARD Routine 12/16/2023 Hyperlipidemia, unspecified hyperlipidemia type HM MAMMOGRAPHY Routine 02/03/2023 HM COLONOSCOPY Routine 08/12/2018 from Last 3 Months or Most Recently Relevant to Health Maintenance Results * MR Brain w/o Contrast (07/29/2024) Anatomical Region Laterality Modality Brain Magnetic Resonan ce [facility] IMG MRI PROCEDURES Final Result * RPR (Diagnosis) with Reflex to Titer??and Confirmatory Testing (07/04/2024) [facility] [place] [facility] LAB BLOOD ORDERABLES Ana l Result Performing Organization Address City/[facility]/ZIP Co de Phone Number EXTERNAL LAB * TSH (07/04/2024) Blood Venous blood specimen / Unknown [facility] LAB BLOOD ORDERABLES Naa l Result Performing Organization Address City/[facility]/ZIP Co de Phone Number EXTERNAL LAB * Vitamin B12 (07/04/2024) Blood Venous blood specimen / Unknown [facility] LAB BLOOD ORDERABLES Ana l Result Performing Organization Address City/[facility]/ZIP Co de Phone Number EXTERNAL LAB * Basic Metabolic Panel (07/04/2024) Blood Venous blood specimen / Unknown [facility] LAB BLOOD ORDERABLES Ana l Result Performing Organization Address City/[facility]/ZIP Co de Phone Number EXTERNAL LAB * Lipid Panel, Standard (12/16/2023) Blood Venous blood specimen / Unknown [facility] LAB BLOOD ORDERABLES Ana l Result Performing Organization Address [facility] Co de Phone Number EXTERNAL LAB * Hm Mammography (02/03/2023) Anatomical Region Laterality Modality Other [facility] Edited Result - Final * Colonoscopy (08/12/2018) Colonoscopy Normal Normal [facility] HEALTH MAINTENANCE Final Result from Last 3 Months or Most Recently Relevant to Health Maintenance Insurance [facility] STANDARD Care Teams Cardiovascular Sonographer Relationship Specialty Start Date End Date Jessy Andersen RN MIDWIFE [address] [place] [address] PCP - General Family Medicine 10/01/22
== END 2024-08-29 10:21 | disposition home or self-care (01) ==
LOC: HO.HSMS 09:29
PROVIDERS: PCP Nurse Practitioner; Visit Provider Psychiatry & Neurology Neurology
DX: R41.89 Other symptoms and signs involving cognitive functions and awareness (principal); R06.83 Snoring; G47.10 Hypersomnia, unspecified
CPT/HCPCS: 99204; G2211

== ENCOUNTER 2024-08-29 09:28 | Outpatient (REF) | payer OTHER, SELFPAY ==
[2024-08-29 14:54] LABS: MANUAL DIFF FLAG NO
[2024-08-29 14:59] LABS: Basophils Absolute Auto 0.1 X10*3/uL (0.0-0.2); Basophils Percent Auto 0.8 % (0-2); Eosinophils Absolute Auto 0.1 X10*3/uL (0.0-0.4); Eosinophils Percent Auto 1.8 % (0-4); Hematocrit 40.4 % (37.0-47.0); Hemoglobin 13.1 g/dl (12.0-16.0); Imm Gran Abs Auto 0.02 X10*3/uL (0.00-0.03); Imm Gran Pct Auto 0.3 % (0.0-0.4); Lymphocytes Absolute Auto 1.8 X10*3/uL (1.2-4.9); Lymphocytes Percent Auto 25.6 % (20-40); Mean Corpuscular HGB Conc 32.4 g/dl (31.0-35.0); Mean Corpuscular Hemoglobin 27.8 pg (27.0-33.0); Mean Corpuscular Volume 85.8 fL (80.0-98.0); Mean Platelet Volume 11.3 fL (9.4-12.3); Monocytes Absolute Auto 0.5 X10*3/uL (0.1-1.2); Monocytes Percent Auto 6.9 % (2-11); Neutrophils Absolute Auto 4.6 x10*3/uL (2.0-8.3); Neutrophils Percent Auto 64.6 % (45-73); Platelet Count 259 X10*3/uL (160-400); Red Blood Count 4.71 X10*6/uL (4.20-5.50); Red Cell Distribution Width 13.6 % (11.0-16.0); White Blood Count 7.1 X10*3/uL (4.8-10.8)
[2024-08-29 15:33] LABS: Alanine Aminotransferase 31 U/L (0-31); Albumin Level 4.4 g/dL (3.5-5.0); Alkaline Phosphatase 73 U/L (39-117); Anion Gap 11 (12-20); Aspartate Amino Transferase 30 U/L (5-31); Bilirubin Total 0.4 mg/dL (0.0-1.0); Blood Urea Nitrogen 21 mg/dL (9-16); Calcium 9.6 mg/dL (8.4-10.2); Carbon Dioxide 27 mmol/L (22-29); Chloride 106 mmol/L (96-108); Estimated Glomerular Filt Rate 57; Glucose Random 82 mg/dL (60-115); Potassium 4.3 mmol/L (3.3-5.1); Sodium 140 mmol/L (135-145)
[2024-08-29 15:34] LABS: TSH reflex Free T4 2.36 uIU/mL (0.32-4.0)
[2024-08-29 15:42] LABS: Erythrocyte Sedimentation Rate 16 MM/HR (0-20)
[2024-08-29 15:52] LABS: Folate 10.2 ng/mL (> or = 4.0); Vitamin B12 543 pg/mL (200-900)
== END 2024-08-29 09:29 | disposition home or self-care (01) ==
LOC: HO.HKASLDS 09:28
PROVIDERS: PCP Nurse Practitioner; Visit Provider Psychiatry & Neurology Neurology
DX: R41.89 Other symptoms and signs involving cognitive functions and awareness (principal); R06.83 Snoring; G47.10 Hypersomnia, unspecified
CPT/HCPCS: 36415; 80053; 82607; 82746; 84443; 85025; 85652; 99202

== ENCOUNTER 2024-11-02 09:56 | Outpatient (AMB) | payer OTHER, SELFPAY ==
--- NOTE | 2024-11-02 10:00 | MHC.OFFVIS ---
Vital Signs 11/02/24 10:01 Height 5 ft 5 in Weight 169 lb 12.095 oz BMI 28.2 BP 126/64 Blood Pressure Location Lt brachial Position Sitting Pulse 82 Pulse Source Pulse Oximeter Pulse Oximetry (%) 97 Oxygen Delivery Method Room Air Intake Visit Reasons: Asthma Chart Writer Required: No Accompanied by: Self / Same As Patient Allergies No Known Allergies Allergy (Verified 11/02/24 10:07) HPI Comments Details: The patient is here for pulmonary evaluation. The patient is a 69 year woman with a diagnosis of asthma in addition to rheumatoid arthritis presenting with worsening cough and palpitations. She was evaluated by Cardiology and had a full cardiac evaluation including cardiac catheterization not finding a clear cardiac source for her palpitations. She has also had Holter monitors and she has not been able to identify anything. Her palpitations have very significant and she does become very aware them and they are uncomfortable for her. She does have daytime drowsiness. She is scheduled to undergo a sleep study. Her [place] score is elevated 24. She is going to be home sleep study. However, with her palpitations would not be unreasonable to have an in-lab sleep study if that is nondiagnostic. In the meantime the patient does have a pulmonary function study from [facility] from 2019 which I personally reviewed demonstrating an obstructive ventilatory defect with the FEV1 to FVC of 69%. More recently in 2022 she had PFTs done here at [place] demonstrating no evidence of any obstructive nor restrictive lung disease. Interestingly she also carries a diagnosis of rheumatoid arthritis. I do not have all the details. She had been seeing a batch unloader in the past but then she lost follow-up. In the meantime the patient does have a CT scan from [facility] which I personally reviewed from 2019 demonstrating some increased interstitial markings at the bases of the lungs and some haziness suggesting the possibility of interstitial lung disease. The details not clear if this was going on when she was sick or not but still with a history of connective tissue disease interstitial lung conditions need to be in differential. On exam she does have some fine rales suggesting some degree of fibrosis. Therefore will go ahead and request blood work to assess for inflammatory conditions or hypersensitivity reactions. In addition to that the patient will undergo a repeat chest x-ray and PFTs since it has been sometime. The patient may need additional imaging studies such as CAT scan in the future. The patient is going to undergo the home sleep study and will follow-up with that as well. For now she will continue using her rescue inhaler. Will hold off on any additional maintenance medications until we follow-up with the blood work. [facility] Medical History (Updated 11/02/24 @ 23:07 by Arnol Hagen MD) Asthma ILD (interstitial lung disease) Gait instability Hypersomnia Snoring Cognitive impairment Surgical History S/P cardiac cath History of ear surgery History of section History of tonsillectomy History of cardiac cath Family History Mother Heart disease Cancer Father Stroke Social History Household Members: Children Household Members Other:: Son Alcohol intake: never Patient Tobacco Use Status: Never used Tobacco Current occupational status: retired Review of Systems Const Reports daytime sleepiness and Reports difficulty sleeping Eyes Reports dry eyes ENT Denies nasal obstruction Card Reports palpitations and Reports dyspnea on exertion Resp Reports cough, Reports dyspnea on exertion and Reports wheezing GI Reports dyspepsia Musc Reports as per HPI, Reports myalgias, Reports arthralgias, Reports limited range of motion and Reports stiffness Skin/Breast Denies rash Endo Reports palpitations Nicholas/Lymph Reports no additional complaints Aller/Immun Reports wheezing Physical Exam Vital Signs: Last Vital Signs Pulse 82 11/02/24 10:01 BP 126/64 11/02/24 10:01 Pulse Ox 97 11/02/24 10:01 Oxygen Delivery Method Room Air 11/02/24 10:01 BMI result Body Mass Index 28.2 Const General: comfortable HEENT Head: Yes normocephalic Neck Neck: Yes supple Chest Chest palpation & inspection: normal inspection of the chest Resp Effort & Inspection: normal respiratory effort Auscultation: rales on the right at the base Cardio Heart sounds: S1 normal heart sound present and S2 normal heart sound present GI Palpation (GI): Soft to palpation Skin General skin exam: no rashes or lesions noted Extrem General: Yes no clubbing, cyanosis or edema Results Reviewed Results Reviewed: Personally reviewed CT chest from [facility] [place] with increased basilar intertitial changes/pneumonitis Assessment & Plan Assessment & Plan (1) ILD (interstitial lung disease): Code(s): J84.9 - Interstitial pulmonary disease, unspecified Category: Medical (2) Allergies: Code(s): T78.40XA - Allergy, unspecified, initial encounter Category: Medical Qualifiers: Encounter type: initial encounter Qualified Code(s): T78.40XA - Allergy, unspecified, initial encounter (3) Palpitations: Code(s): R00.2 - Palpitations Category: Medical (4) Dyspnea: Code(s): R06.00 - Dyspnea, unspecified Category: Medical Qualifiers: Dyspnea type: dyspnea on exertion Qualified Code(s): R06.09 - Other forms of dyspnea (5) Hypersomnia: Code(s): G47.10 - Hypersomnia, unspecified Category: Medical (6) Snoring: Code(s): R06.83 - Snoring Category: Medical (7) Asthma: Code(s): J45.909 - Unspecified asthma, uncomplicated Category: Medical Qualifiers: Asthma severity: mild Asthma persistence: intermittent Asthma complication type: uncomplicated Qualified Code(s): J45.20 - Mild intermittent asthma, uncomplicated Plan continue JALEEL as needed Bloodwork PFTs/CXR, consider repeating CT chest Awaiting Home PSH, if non diagnostic, then an inlab study maybe helpful continue singulair F/U 2-3 months Orders: Orders Complete Blood Count Auto Diff Today J84.9 - Interstitial pulmonary disease, unspecified, T78.40XA - Allergy, unspecified, initial encounter NEGAR Reflex Titer and Pattern Today J84.9 - Interstitial pulmonary disease, unspecified, T78.40XA - Allergy, unspecified, initial encounter Hypersensitive Pneumonitis Prf Today J84.9 - Interstitial pulmonary disease, unspecified, R91.8 - Other nonspecific abnormal finding of lung field, T78.40XA - Allergy, unspecified, initial encounter Resp Allergy Profile Region I Today J84.9 - Interstitial pulmonary disease, unspecified, R91.1 - Solitary pulmonary nodule, T78.40XA - Allergy, unspecified, initial encounter XR chest 2V Today J45.20 - Mild intermittent asthma, uncomplicated Cyclic Citrullinated Peptide Today J84.9 - Interstitial pulmonary disease, unspecified, T78.40XA - Allergy, unspecified, initial encounter Anti DNA DS Antibody Today J84.9 - Interstitial pulmonary disease, unspecified, T78.40XA - Allergy, unspecified, initial encounter Erythrocyte Sedimentation Rate Today J84.9 - Interstitial pulmonary disease, unspecified, T78.40XA - Allergy, unspecified, initial encounter Scleroderma 70 Antibody Today J84.9 - Interstitial pulmonary disease, unspecified, T78.40XA - Allergy, unspecified, initial encounter Sjogren's Antibodies Today J84.9 - Interstitial pulmonary disease, unspecified, T78.40XA - Allergy, unspecified, initial encounter PFT pulmonary function test Today J45.20 - Mild intermittent asthma, uncomplicated Coding Level of Care Code New Pt Level 5 (68998) Diagnoses ILD (interstitial lung disease) J84.9 Allergy, initial encounter T78.40XA Encounter type: initial encounter Palpitations R00.2 Dyspnea on exertion R06.09 Dyspnea type: dyspnea on exertion Hypersomnia G47.10 Snoring R06.83 Mild intermittent asthma without complication J45.20 Asthma severity: mild Asthma persistence: intermittent Asthma complication type: uncomplicated Time Spent (min) 60
[2024-11-02 10:01] VITALS: BP 126/64; PULSE 82; O2SAT 97; BMI 28.2
--- OUTSIDE RECORDS SUMMARY | 2024-11-02 11:16 | XMS_ITS | Encounter Summary ---
Author Organization [facility] Address [address] [place] [id number] Phone Care Team Providers Care Machine Tool Mechanic Name Role Phone Jacquelyn Chandler MD Primary Care Provider Jessy Andersen NP Primary Care Provider Encounter Details Date Type Department Care Team (Latest Contact Info) Description 10/04/2018 Transcribe Orders [facility] [address] [facility] [place] [address] Seth Jeter MD [address] [address] [email or web address] Malabsorption due to intolerance, not elsewhere classified (Primary Dx); Gastroesophageal reflux disease without esophagitis Social History Tobacco Use Types Packs/Day Years Used Date Smoking Tobacco: Never Smokeless Tobacco: Never Alcohol Use Standard Drinks/Week Comments No 0 (1 standard drink = 0.6 oz pur e alcohol) Comments No Sex and Gender Information Value Date Recorded Sex Assigned at Female 08/08/2018 10:11 PM EDT Legal Sex Female 9:53 PM EDT Gender Identity Female 08/08/2018 10:11 PM EDT Sexual Orientation Not on file Occupation Industry Job Start Date Job End Date [employer] WORK[employer] in [place] Not on file Not on file Not on file documented as of this encounter Plan of Treatment Upcoming Encounters Date Type Department Care Team (Late st Contact Info) Description 09/28/2024 Procedure Pass [facility] - [address] [place] [address] 11/07/2024 11:30 AM EDT Office Visit [facility] [address] [place] [address] Brooke Pressley MD [address] [address] Kim Braun, PT [address] [place] [address] 11/14/2024 11:30 AM EDT Office Visit [address] [address] Brooke Pressley MD [address] [address] Kim Braun, PT [address] [place] [address] 11/21/2024 11:30 AM EDT Office Visit [address] [address] Brooke Pressley MD [address] [address] Kim Braun, PT [address] [place] [address] 11/28/2024 11:30 AM EDT Office Visit [address] [address] Brooke Pressley MD [address] [address] Kim Braun, PT [address] [place] [address] 05/10/2025 9:15 AM EDT Appointment [facility] - [address] [place] [address] Jessy Andersen, AMBIKA [address] [place] [address] documented as of this encounter Results * C-Reactive Protein (10/04/2018 1:59 PM EDT) C REACTIVE PROTEIN 3.2 0.0 - 4.0 mg/L [facility] Blood 10/04/2018 1:59 PM EDT 10/04/2018 2:04 PM EDT us Seth Jeter MD LAB BLOOD ORDERABLES Final R esult Performing Organization Address City/State/[facility] Co de Phone Number [address] [address] * CBC (10/04/2018 1:59 PM EDT) WBC 6.90 3.40 - 11.20 K/uL [facility] RBC 4.70 3.80 - 4.80 M/uL [facility] HGB 13.1 12.0 - 15.0 g/dL [facility] HCT 39.7 36.0 - 46.0 % [facility] PLT 261 130 - 400 K/uL [facility] MCV 84.5 79.0 - 98.0 [facility] MCH 27.9 27.0 - 34.8 pg [facility] MCHC 33.0 31.5 - 36.0 g/dL [facility] RDW 13.1 10.8 - 14.6 % [facility] MPV 11.4 9.4 - 12.4 [facility] NRBC 0.00 0.00 /100 WBCs [facility] ABSOLUTE NRBC 0.00 0.00 K/uL [facility] Blood 10/04/2018 1:59 PM EDT 10/04/2018 2:04 PM EDT us Seth Jeter MD LAB BLOOD ORDERABLES Final R esult [facility] [address] [place] [address] * Tissue transglutaminase IgA (10/04/2018 1:59 PM EDT) TTG IGA ANTIBODY <1.2 <4.0 (Negative) U/mL [facility] MED/[facility] Blood 10/04/2018 1:59 PM EDT 10/04/2018 2:03 PM EDT Seth Jeter MD LAB BLOOD ORDERABLES Final R esult Performing Organization Address City/[facility]/ZIP Co de Phone Number [facility] MED/[address] [place] [address] documented in this encounter Visit Diagnoses Diagnosis Malabsorption due to intolerance, not elsewhere classified- Primary Gastroesophageal reflux disease without esophagitis Esophageal reflux documented in this encounter Additional Health Concerns Infection Onset Date Last Indicated Resolved Time CoV-Risk 12/21/2021 12/21/2021 01/01/2022 1:22 AM EDT documented as of this encounter Care Teams Machine Tool Mechanic Relationship Specialty Start Date End Date Jacquelyn Chandler MD [address] [place] [id number] PCP - General Internal Medicine 12/01/17 01/28/23 Jessy Andersen NP [address] [place] [address] PCP - General Nurse Practitioner 01/29/23 documented as of this encounter Additional Source Comments The information contained in this document represents components of the legal health record. It is not the complete legal health record.[facility]
--- OUTSIDE RECORDS SUMMARY | 2024-11-02 11:16 | XMS_ITS | Encounter Summary ---
Author Organization [facility] Address [address] [place] [address] Phone Care Team Providers Care Test Data Developer Name Role Phone Jacquelyn Chandler MD Primary Care Provider [phone] Jessy Andersen NP Primary Care Provider Encounter Details Date Type Department Care Team (Latest Contact Info) Description 11/27/2021 Transcribe Orders [facility] Laboratory [address] [address] Nat Tam PA 10 [place] [address] Abdominal pain, left lower quadrant (Primary Dx); Abdominal pain, right lower quadrant Social History Tobacco Use Types Packs/Day Years Used Date Smoking Tobacco: Passive Smo ke Exposure - Never Smoker Smokeless Tobacco: Never Alcohol Use Standard Drinks/Week Comments Never 0 (1 standard drink = 0.6 oz pur e alcohol) Comments No Sex and Gender Information Value Date Recorded Sex Assigned at Female 08/08/2018 10:11 PM EDT Legal Sex Female 9:53 PM EDT Gender Identity Female 08/08/2018 10:11 PM EDT Sexual Orientation Not on file Occupation Industry Job Start Date Job End Date retired Not on file Not on file Not on file documented as of this encounter Plan of Treatment Upcoming Encounters Date Type Department Care Team (Late Contact Info) Description 09/28/2024 Procedure Pass [facility] - [address] [place] [address] 11/07/2024 11:30 AM EDT Office Visit [address] [address] Brooke Pressley MD [address] [address] Kim Braun, PT [address] [place] [address] 11/14/2024 11:30 AM EDT Office Visit [address] [address] Brooke Pressley MD [address] [address] Kim Braun, PT [address] [place] [address] 11/21/2024 11:30 AM EDT Office Visit [address] [address] Brooke Pressley MD [address] [address] Kim Braun, PT [address] [place] [address] 11/28/2024 11:30 AM EDT Office Visit [address] [address] Brooke Pressley MD [address] [address] Kim Braun, PT [address] [place] [address] 05/10/2025 9:15 AM EDT Appointment [facility] - [address] [place] [address] Jessy Andersen NP [address] [place] [address] documented as of this encounter Results * (ABNORMAL) 25-OH vitamin D (11/27/2021 11:43 AM EDT) 25 OH VIT D (TOTAL) 26(L) 30 - 60 ng/mL [facility] Blood 11/27/2021 11:4 3 AM EDT 11/27/2021 11:47 AM EDT us Nat GONZALEZ LAB BLOOD ORDERABLES Final Result Performing Organization Address City/[facility]/ZIP Co de Phone Number [address] [address] * Vitamin B12 (11/27/2021 11:43 AM EDT) VITAMIN B12 1,048 232 - 1,245 pg/mL [facility] Blood 11/27/2021 11:4 3 AM EDT 11/27/2021 11:47 AM EDT Nat GONZALEZ LAB BLOOD ORDERABLES Final Result [address] [address] * CBC (11/27/2021 11:43 AM EDT) WBC 5.75 4.00 - 11.00 K/uL [facility] RBC 4.62 3.72 - 5.30 M/uL [facility] HGB 13.0 11.4 - 15.9 g/dL [facility] HCT 39.5 34.2 - 46.8 % [facility] PLT 286 140 - 430 K/uL [facility] MCV 85.5 78.0 - 97.0 fL [facility] MCH 28.1 25.0 - 33.0 pg [facility] MCHC 32.9 32.0 - 36.0 g/dL [facility] RDW 13.5 11.0 - 16.0 % [facility] MPV 11.1 8.4 - 12.8 [facility] Blood 11/27/2021 11:4 3 AM EDT 11/27/2021 11:47 AM EDT us Nat GONZALEZ LAB BLOOD ORDERABLES Final Result [facility] [address] [place] [address] documented in this encounter Visit Diagnoses Diagnosis Abdominal pain, left lower quadrant- Primary Abdominal pain, right lower quadrant documented in this encounter Additional Health Concerns Infection Onset Date Last Indicated Resolved Time CoV-Risk 12/21/2021 12/21/2021 01/01/2022 1:22 AM EDT Assessment Noted Time PHQ-2 Depression Total Score: 0 07/30/19 10:09 AM EDT documented as of this encounter Care Teams Test Data Developer Relationship Specialty Start Date End Date Jacquelyn Chandler MD [address] [place] [address] [email or web address] PCP - General Internal Medicine 12/01/17 01/28/23 Jessy Andersen NP [address] [place] [address] PCP - General Nurse Practitioner 01/29/23 documented as of this encounter Additional Source Comments The information contained in this document represents components of the legal health record. It is not the complete legal health record.[facility]
--- OUTSIDE RECORDS SUMMARY | 2024-11-02 11:16 | XMS_ITS | Encounter Summary ---
Author Organization [facility] Address [address] [place] [address] Phone Care Team Providers Care Fisher Terrapin Name Role Phone Jacquelyn Chandler MD Primary Care Provider Jessy Andersen NP Primary Care Provider Encounter Details Date Type Department Care Team (Late st Contact Info) Description 06/24/2018 Ancillary Orders [facility] at [address] [address] Cammie Rodriguez, DONN [address] [facility], [address] [place] [address] [email or web address] Social History Tobacco Use Types Packs/Day Years [...] 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 [employer] Not on file Not on file Not on file documented as of this encounter Plan of Treatment Upcoming Encounters Date Type Department Care Team (Late st Contact Info) Description 09/28/2024 Procedure Pass [facility] - [address] [place] [address] 11/07/2024 11:30 AM EDT Office Visit [address] [address] Brooke Pressley MD [address] [address] Kim Braun, PT [address] [place] [address] 11/14/2024 11:30 AM EDT Office Visit [address] [address] Brooke Pressley MD [address] [address] Kim Braun, PT [address] [place] [address] 11/21/2024 11:30 AM EDT Office Visit [address] [address] Brooke Pressley MD [address] [address] Kim Braun, PT [address] [place] [address] 11/28/2024 11:30 AM EDT Office Visit [address] [address] Brooke Pressley MD [address] [address] Kim Braun, PT [address] [place] [address] 05/10/2025 9:15 AM EDT Appointment [address] [place] [address] Jessy Andersen NP [address] [place] [address] documented as of this encounter Visit Diagnoses Not on filedocumented in this encounter Additional Health Concerns Infection Onset Date Last Indicated Resolved Time CoV-Risk 12/21/2021 12/21/2021 01/01/2022 1:22 AM EDT documented as of this encounter Care Teams Fisher Terrapin Relationship Specialty Start Date End Date Jacquelyn Chandler MD [address] [place], [place] [address] [address] [email or web address] PCP - General Internal Medicine 12/01/17 01/28/23 Jessy Andersen NP [address] [place] [address] PCP - General Nurse Practitioner 01/29/23 documented as of this encounter Additional Source Comments The information contained in this document represents components of the legal health record. It is not the complete legal health record.[facility]
--- OUTSIDE RECORDS SUMMARY | 2024-11-02 11:16 | XMS_ITS | Encounter Summary ---
Author Organization [facility] Address [address] [place] [address] Phone Care Team Providers Care Digital Media Intern Name Role Phone Jacquelyn Chandler MD Primary Care Provider Jessy Andersen NP Primary Care Provider Encounter Details Date Type Department Care Team (Latest Contact Info) Description 11/30/2018 Transcribe Orders [address] [place] [address] Jacquelyn Chandler MD [address] [place] [address] Pain in joint, multiple sites (Primary Dx); Hyperlipidemia, unspecified hyperlipidemia type; Annual physical exam; Mild neurocognitive disorder Social History Tobacco Use Types Packs/Day Years [...] 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 Not on file documented as of this encounter Plan of Treatment Upcoming Encounters Date Type Department Care Team ( Contact Info) Description 09/28/2024 Procedure Pass [facility] - [address] [place] [address] 11/07/2024 11:30 AM EDT Office Visit [address] [address] Brooke Pressley MD [address] [address] Kim Braun, PT [address] [place] [address] [email or web address] 11/14/2024 11:30 AM EDT Office Visit [address] [address] Brooke Pressley MD [address] [address] Kim Braun, PT [address] [place] [address] [email or web address] 11/21/2024 11:30 AM EDT Office Visit [address] [address] Brooke Pressley MD [address] [address] Kim Braun, PT [address] [place] [address] [email or web address] 11/28/2024 11:30 AM EDT Office Visit [address] [address] Brooke Pressley MD [address] [address] Kim Braun, PT [address] [place] [address] [email or web address] 05/10/2025 9:15 AM EDT Appointment [facility] - [address] [place] [address] Jessy Andersen, AMBIKA [address] [place] [address] documented as of this encounter Results * Homocysteine (11/30/2018 9:10 AM EDT) HOMOCYSTEINE, TOTAL 8.1 0 - 14.2 umol/L [facility] Blood 11/30/2018 9:10 AM EDT 11/30/2018 9:17 AM EDT us Jacquelyn Chandler MD LAB BLOOD ORDERABLES Final R esult Performing Organization Address City/[facility]/ZIP Co de Phone Number [address] [address] * Vitamin B12 (11/30/2018 9:10 AM EDT) VITAMIN B12 655 232 - 1,245 pg/mL [facility] Blood 11/30/2018 9:10 AM EDT 11/30/2018 9:17 AM EDT us Jacquelyn Chandler MD LAB BLOOD ORDERABLES Final R esult Performing Organization Address City/[facility]/ZIP Co de Phone Number [address] [address] * Folate (11/30/2018 9:10 AM EDT) FOLIC ACID 13.5 4.2 - 19.9 ng/mL [facility] Blood 11/30/2018 9:10 AM EDT 11/30/2018 9:17 AM EDT us Jacquelyn Chandler MD LAB BLOOD ORDERABLES Final R esult Performing Organization Address [facility] Co de Phone Number [address] [address] * Methylmalonic acid, serum (11/30/2018 9:10 AM EDT) METHYLMALONIC ACID 0.12 <=0.40 nmol/mL [facility] DPT OF LAB MED AND PAT+ Comment: (NOTE) ADDITIONAL INFORMATION This test was developed and its performance characteristics determined by [facility] in a manner consistent with CLIA requirements. This test has not been cleared or approved by the U.S. Food and Drug Administration. Blood 11/30/2018 9:10 AM EDT 11/30/2018 2:18 PM EDT Jacquelyn Chandler MD LAB BLOOD ORDERABLES Final R esult [facility] DPT OF LAB MED AND PAT+ [address] [place] [address] * Basic metabolic panel (11/30/2018 9:10 AM EDT) SODIUM 141 133 - 146 mmol/L [facility] CHLORIDE 103 96 - 108 mmol/L [facility] POTASSIUM 4.8 3.3 - 5.1 mmol/L [facility] CO2 26 21 - 35 mmol/L [facility] BUN 18 6 - 19 mg/dL [facility] CREATININE 0.90 0.5 - 1.5 mg/dL [facility] GLUCOSE 95 70 - 99 mg/dL [facility] CALCIUM 9.7 8.4 - 10.3 mg/dL [facility] EGFR 69 >59 mL/min/1.7 3m2 [facility] Comment:If patient is black, multiply result by 1.159. Estimated glomerular filtration rate calculated using the CKD-EPI equation. ANION GAP 17 10 - 20 mmol/L [facility] Blood 11/30/2018 9:10 AM EDT 11/30/2018 9:17 AM EDT Jacquelyn Chandler MD LAB BLOOD ORDERABLES Final R esult Performing Organization Address City/[facility]/ZIP Co de Phone Number [facility] [address] [place] [address] * (ABNORMAL) Lipid panel (11/30/2018 9:10 AM EDT) HDL 45 mg/dL [facility] Comment: Interpretation <40 mg/dL: Low HDL cholesterol (major risk factor for CHD) Greater than or equal to 60 mg/dL: High HDL cholesterol ( negative risk factor for CHD) HDL - cholesterol is affected by a number of factors, e.g. smoking, excerise, hormones, sex and age. CHOLESTEROL 323(H) 0 - 240 mg/dL [facility] TRIGLYCERIDES 222(H) 30 - 160 mg/dL [facility] LDL 234(H) 50 - 129 mg/dL [facility] Comment: LDL levels in terms of risk for coronary heart disease: <100 mg/dL: Optimal 100-129 mg/dL: Near or above optimal 130-159 mg/dL: Borderline high 160-189 mg/dL: High >190 mg/dL: Very High CARDIAC RISK RATIO 7.2(H) 3.3 - 4.4 C [facility] Blood 11/30/2018 9:10 AM EDT 11/30/2018 9:17 AM EDT Jacquelyn Chandler MD LAB BLOOD ORDERABLES Final R [facility] Performing Organization Address City/[facility]/ZIP Co de Phone Number [address] [address] * (ABNORMAL) Lyme screen with reflex to Western blot, blood (11/30/2018 9:10 AM EDT) Lyme AB IgG Negative Negative [facility] Lyme AB IgM Equivocal(A) Negative [facility] Comment:The Lyme Disease Ant ibody, Confirmation, Serum (Western Blot) has been reflexed. The results will follow. Blood 11/30/2018 9:1 0 AM EDT 11/30/2018 9:17 AM EDT Jacquelyn Chandler MD LAB BLOOD ORDERABLES Final R esult [address] [address] * Sedimentation rate (ESR) (11/30/2018 9:10 AM EDT) ESR 17 0 - 30 mm/h [facility] Blood 11/30/2018 9:10 AM EDT 11/30/2018 9:17 AM EDT us Jacquelyn Chandler MD LAB BLOOD ORDERABLES Final R esult [address] [address] * CPK (creatine kinase) (11/30/2018 9:10 AM EDT) Pathologist [facility] CREATINE KINASE 40 21 - 215 U/L [facility] Blood 11/30/2018 9:10 AM EDT 11/30/2018 9:17 AM EDT us Jacquelyn Chandler MD LAB BLOOD ORDERABLES Final R esult Performing Organization Address City/[facility]/ZIP Co de Phone Number [address] [address] * CCP IgG antibodies (11/30/2018 9:10 AM EDT) ANTI-CCP IGG <8 0 - 16 U/mL [facility] Blood 11/30/2018 9:10 AM EDT 11/30/2018 9:17 AM EDT us Jacquelyn Chandler MD LAB BLOOD ORDERABLES Final R esult [address] [address] * CBC and differential (11/30/2018 9:10 AM EDT) WBC 5.14 3.40 - 11.20 K/uL [facility] RBC 4.77 3.80 - 4.80 M/uL [facility] HGB 13.3 12.0 - 15.0 g/dL [facility] HCT 40.6 36.0 - 46.0 % [facility] PLT 283 130 - 400 K/uL [facility] MCV 85.1 79.0 - 98.0 fL [facility] MCH 27.9 27.0 - 34.8 pg [facility] MCHC 32.8 31.5 - 36.0 g/dL [facility] RDW 13.5 10.8 - 14.6 % [facility] MPV 11.2 9.4 - 12.4 fl [facility] NRBC 0.00 0.00 /100 WBCs [facility] ABSOLUTE NRBC 0.00 0.00 K/uL [facility] DIFF METHOD Auto [facility] NEUTS 60.6 45.30 - 77.70 % [facility] LYMPHS 30.0 12.30 - 39.70 % [facility] MONOS 6.2 4.10 - 12.80 % [facility] EOS 1.8 0 - 7.2 % [facility] BASOS 1.2 0 - 2.80 % [facility] Granulocytes, immature (%) 0.2 0.0 - 0.9 % [facility] ABSOLUTE NEUTS 3.12 1.40 - 7.70 K/uL [facility] ABSOLUTE LYMPHS 1.54 0.60 - 3.20 K/uL [facility] ABSOLUTE MONOS 0.32 0.11 - 0.59 K/uL [facility] ABSOLUTE EOS 0.09 0.01 - 0.50 K/uL [facility] ABSOLUTE BASOS 0.06 0.00 - 0.08 K/uL [facility] Granulocytes, immature 0.01 0.00 - 0.05 K/uL [facility] Blood 11/30/2018 9:10 AM EDT 11/30/2018 9:17 AM EDT Jacquelyn Chandler MD LAB BLOOD ORDERABLES Final R esult [facility] [address] [place] [address] * (ABNORMAL) C-Reactive Protein (11/30/2018 9:10 AM EDT) C REACTIVE PROTEIN 8.6(H) 0.0 - 4.0 mg/L [facility] Blood 11/30/2018 9:10 AM EDT 11/30/2018 9:17 AM EDT Jacquelyn Chandler MD LAB BLOOD ORDERABLES Final R esult Performing Organization Address [facility] Co de Phone Number [address] [address] * Antinuclear antibody (NEGAR) (11/30/2018 9:10 AM EDT) NEGAR SCREEN ON HEP 2 Negative Negative [facility] Blood 11/30/2018 9:10 AM EDT 11/30/2018 9:17 AM EDT Jacquelyn Chandler MD LAB BLOOD ORDERABLES Final R esult Performing Organization Address [facility] de Phone Number [address] [address] documented in this encounter Visit Diagnoses Diagnosis Pain in joint, multiple sites- Primary Hyperlipidemia, unspecified hyperlipidemia type Annual physical exam Routine general medical examination at a health care facility Mild neurocognitive disorder documented in this encounter Additional Health Concerns Infection Onset Date Last Indicated Resolved Time CoV-Risk 12/21/2021 12/21/2021 01/01/2022 1:22 AM EDT documented as of this encounter Care Teams Digital Media Intern Relationship Specialty Start Date End Date Jacquelyn Chandler MD [address] [place] [id number] PCP - General Internal Medicine 12/01/17 01/28/23 Jessy Andersen NP [address] [place] [address] PCP - General Nurse Practitioner 01/29/23 documented as of this encounter Additional Source Comments The information contained in this document represents components of the legal health record. It is not the complete legal health record.[facility]
--- OUTSIDE RECORDS SUMMARY | 2024-11-02 11:16 | XMS_ITS | Encounter Summary ---
Author Organization [facility] Address [address] [place] [address] Phone Care Team Providers Care Throat Cutter Name Role Phone Jacquelyn Chandler MD Primary Care Provider Jessy Andersen NP Primary Care Provider Encounter Details Date Type Department Care Team (Latest Contact Info) Description 09/12/2019 Transcribe Orders [address] [place] [address] Seth Jeter MD [address] [place] [address] 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 documented as of this encounter Plan of Treatment Upcoming Encounters Date Type Department Care Team (Late Contact Info) Description 09/28/2024 Procedure Pass [facility] - [address] [place] [address] 11/07/2024 11:30 AM EDT Office Visit [address] [address] Brooke Pressley MD [address] [address] Kim Braun, PT [address] [place] [address] 11/14/2024 11:30 AM EDT Office Visit [address] [address] Brooke Pressley MD [address] [address] Kim Braun, PT [address] [place] [address] 11/21/2024 11:30 AM EDT Office Visit [address] [address] Brooke Pressley MD [address] [address] Kim Braun, PT [address] [place] [address] 11/28/2024 11:30 AM EDT Office Visit [address] [address] Brooke Pressley MD [address] [address] Kim Braun, PT [address] [place] [address] 05/10/2025 9:15 AM EDT Appointment [facility] - [address] [place] [address] Jessy Andersen NP [address] [place] [address] documented as of this encounter Results * (ABNORMAL) Creatinine/eGFR (09/12/2019 2:54 PM EDT) CREATININE 1.10 0.5 - 1.5 mg/dL [facility] EGFR 54(L) >59 mL/min/1.7 3m2 [facility] Comment:Estimated glomerular filtration rate calculated using the CKD-EPI equation. Blood 09/12/2019 2:54 PM EDT 09/12/2019 2:56 PM EDT us Seth Jeter MD LAB BLOOD ORDERABLES Final R esult Performing Organization Address City/[facility] Co de Phone Number [address] [address] * BUN (09/12/2019 2:54 PM EDT) BUN 17 6 - 19 mg/dL [facility] Blood 09/12/2019 2:54 PM EDT 09/12/2019 2:56 PM EDT Seth Jeter MD LAB BLOOD ORDERABLES Final R esult Performing Organization Address City/[facility] Co de Phone Number [address] [address] documented in this encounter Visit Diagnoses Diagnosis Abdominal pain, RLQ- Primary documented in this encounter Additional Health Concerns Infection Onset Date Last Indicated Resolved Time CoV-Risk 12/21/2021 12/21/2021 01/01/2022 1:22 AM EDT documented as of this encounter Care Teams Throat Cutter Relationship Specialty Start Date End Date Jacquelyn Chandler MD [address] [place] [address] [address] [place] [address] [email or web address] PCP - General Internal Medicine 12/01/17 01/28/23 Jessy Andersen NP [address] [place] [address] PCP - General Nurse Practitioner 01/29/23 documented as of this encounter Additional Source Comments The information contained in this document represents components of the legal health record. It is not the complete legal health record.[facility]
--- OUTSIDE RECORDS SUMMARY | 2024-11-02 11:16 | XMS_ITS | Encounter Summary ---
Author Organization [facility] Address [address] [place] [address] Phone Care Team Providers Care Fund Controller Name Role Phone Jacquelyn Chandler MD Primary Care Provider Jessy Andersen NP Primary Care Provider Encounter Details Date Type Department Care Team (Late Contact Info) Description 04/29/2018 Transcribe Orders [address] [place] [address] Jacquelyn Chandler MD [address] [place] [address] [email or web address] Central perforation of tympanic membrane of right ear (Primary Dx) Social History Tobacco Use Types [...] 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 Not on file documented as of this encounter Plan of Treatment Upcoming Encounters Date Type Department Care Team (Late Contact Info) Description 09/28/2024 Procedure Pass [address] [place] [address] 11/07/2024 11:30 AM EDT Office Visit [facility] [address] [place] [address] Brooke Pressley MD [address] [address] Kim Braun, PT [address] [place] [address] 11/14/2024 11:30 AM EDT Office Visit [address] [address] Brooke Pressley MD [address] [address] Kim Braun, PT [address] [place] [address] [email or web address] 11/21/2024 11:30 AM EDT Office Visit [facility] [address] [place] [address] Brooke Pressley MD [address] [address] Kim Braun, PT [address] [place] [address] 11/28/2024 11:30 AM EDT Office Visit [address] [address] Brooke Pressley MD [address] [address] Kim Braun, PT [address] [place] [address] 05/10/2025 9:15 AM EDT Appointment [address] [place] [address] Jessy Andersen, [employer] COMPUTING SOFTWARE ENGINEER [address] [place] [address] documented as of this encounter Results * CBC and differential (04/29/2018 11:30 AM EST) WBC 5.51 3.40 - 11.20 K/uL [facility] RBC 4.80 3.80 - 4.80 M/uL [facility] HGB 13.1 12.0 - 15.0 g/dL [facility] HCT 40.2 36.0 - 46.0 % [facility] PLT 294 130 - 400 K/uL [facility] MCV 83.8 79.0 - 98.[address] [facility] MCH 27.3 27.0 - 34.[address] [facility] MCHC 32.6 31.5 - 36.0 g/dL [facility] RDW 13.1 10.8 - 14.6 % [facility] MPV 11.0 9.4 - 12.[address] [facility] NRBC 0.00 0.00 /[address] [facility] ABSOLUTE NRBC 0.00 0.00 K/uL [facility] DIFF METHOD Auto [facility] NEUTS 54.6 45.30 - 77.70 % [facility] LYMPHS 35.9 12.30 - 39.70 % [facility] MONOS 6.0 4.10 - 12.80 % [facility] EOS 2.4 0 - 7.2 % [facility] BASOS 0.9 0 - 2.80 % [facility] Granulocytes, immature (%) 0.2 0.0 - 0.9 % [facility] ABSOLUTE NEUTS 3.01 1.40 - 7.70 K/uL [facility] ABSOLUTE LYMPHS 1.98 0.60 - 3.20 K/uL [facility] ABSOLUTE MONOS 0.33 0.11 - 0.59 K/uL [facility] ABSOLUTE EOS 0.13 0.01 - 0.50 K/uL [facility] ABSOLUTE BASOS 0.05 0.00 - 0.08 K/uL [facility] Granulocytes, immature 0.01 0.00 - 0.05 K/uL [facility] Blood 04/29/2018 11:3 0 AM EST 04/29/2018 11:37 AM EST us Jacquelyn Chandler MD LAB BLOOD ORDERABLES Final R esult Performing Organization Address City/[facility]/ZIP Co de Phone Number [address] [address] * Basic metabolic panel (04/29/2018 11:30 AM EST) SODIUM 137 133 - 146 mmol/L [facility] CHLORIDE 101 96 - 108 mmol/L [facility] POTASSIUM 4.6 3.3 - 5.1 mmol/L [facility] CO2 29 21 - 35 mmol/L [facility] BUN 17 6 - 19 mg/dL [facility] CREATININE 0.90 0.5 - 1.5 mg/dL [facility] GLUCOSE 88 70 - 99 mg/dL [facility] CALCIUM 9.6 8.4 - 10.3 mg/dL [facility] EGFR 69 >59 mL/min/1.[address] [facility] Comment:If patient is black, multiply result by 1.159. Estimated glomerular filtration rate calculated using the CKD-EPI equation. ANION GAP 12 10 - 20 mmol/L [facility] Blood 04/29/2018 11:3 0 AM EST 04/29/2018 11:37 AM EST us Jacquelyn Chandler MD LAB BLOOD ORDERABLES Final R esult Performing Organization Address City/[facility]/ZIP Co de Phone Number [address] [address] documented in this encounter Visit Diagnoses Diagnosis Central perforation of tympanic membrane of right ear- Primary documented in this encounter Additional Health Concerns Infection Onset Date Last Indicated Resolved Time CoV-Risk 12/21/2021 12/21/2021 01/01/2022 1:22 AM EDT documented as of this encounter Care Teams Fund Controller Relationship Specialty Start Date End Date Jacquelyn Chandler MD [address] [place] [phone] [email or web address] PCP - General Internal Medicine 12/01/17 01/28/23 Jessy Andersen NP [address] [place] [address] [address] [place] [address] PCP - General Nurse Practitioner 01/29/23 documented as of this encounter Additional Source Comments The information contained in this document represents components of the legal health record. It is not the complete legal health record.[facility]
--- OUTSIDE RECORDS SUMMARY | 2024-11-02 11:16 | XMS_ITS | Encounter Summary ---
Author Organization [facility] Address [address] [place] [address] Phone Care Team Providers Care Drawer Waxer Name Role Phone Jacquelyn Chandler MD Primary Care Provider [phone] Jessy Andersen NP Primary Care Provider Reason for Referral * MRI/CAT Scan - Closed Specialty Diagnoses / Procedures Referred By Gabriele canales Referred To Contact Radiology Diagnoses Abnormal findings on diagnostic imaging of liver and biliary tract RLQ abdominal pain Procedures CT Abdomen/Pelvis Seth Jeter MD Phone: tel: fax: mailto:[email or web address] Referral ID Status Reason Start Date Expiration Date Visits Re quested Visits Authorized [id number] Closed 09/28/2019 01/18/2020 1 1 Encounter Details Date Type Department Care Team (Latest Contact Info) Description 09/28/2019 Transcribe Orders Virtual Department [address] [place] [address] Seth Jeter MD [address] [place] [phone] [email or web address] Abnormal findings on diagnostic imaging of liver and biliary tract (Primary Dx); RLQ abdominal pain Social History Tobacco Use Types Packs/Day Years [...] st Contact Info) Description 09/28/2024 Procedure Pass [facility] - [address] [place] [address] 11/07/2024 11:30 AM EDT Office Visit [facility] [address] [place] [address] Brooke Pressley MD [address] [address] Kim Braun, PT 380 [place] [address] 11/14/2024 11:30 AM EDT Office Visit [facility] [address] [place] [address] Brooke Pressley MD [address] [address] Kim Braun, PT 380 [place] [address] [email or web address] 11/21/2024 11:30 AM EDT Office Visit [address] [address] Brooke Pressley MD [address] [address] Kim Braun, PT [address] [place] [address] 11/28/2024 11:30 AM EDT Office Visit [facility] [address] [place] [address] Brooke Pressley MD 299 [facility] [address] [place] [address] Kim Braun, PT [address] [place] [address] [email or web address] 05/10/2025 9:15 AM EDT Appointment [facility] - [address] [place] [address] Jessy Andersen, AMBIKA [address] [place] [facility] [address] documented as of this encounter Results * CT ABDOMEN/PELVIS WITH CONTRAST (10/21/2019 10:08 AM EDT) Anatomical Region Laterality Modality Abdomen, Pelvis Computed Tomogra phy 10/21/2019 10:2 1 AM EDT Impressions 10/21/2019 10:36 AM EDT 1.No findings to account for the patient's right lower quadrant pain. 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 3.Additional stable findings as above. Narrative 10/21/2019 10:36 AM EDT COMPARISON: 08/26/2018. TECHNIQUE: CT abdomen and pelvis with IV and oral contrast. Multiplanar reformatted images generated. Automated exposure control utilized. CT ABDOMEN AND PELVIS FINDINGS: Lung bases/heart: Imaged heart is normal. Dependent atelectasis. There is a chronic 8 mm AVM in the posterior right lower lobe base. Spleen: Normal. Liver: Normal. Gallbladder/biliary tree: Normal. Pancreas: Stable moderate diffuse fatty infiltration and atrophy. Adrenal glands: Normal. Vasculature: Stable mild aortic calcified plaque. No AAA or acute findings. Genitourinary: Kidneys, bladder and uterus are within normal limits. No adnexal masses. Stable 1.3 cm right adnexal region cyst which may represent a paraovarian cyst. No free fluid in the cul-de-sac. Gastrointestinal tract: Unremarkable. Peritoneum/retroperitoneum: No enlarged lymph nodes, ascites or fluid collections. Musculoskeletal: Chronic small fat-containing umbilical hernia. Stable mild bilateral hip arthritis, mild L4-5 disc disease and lower lumbar spine facet arthropathy. No compression fractures. No destructive or suspicious bone lesions. Procedure Note Dylan Sanderosn MD - 10/21/2019 COMPARISON: 08/26/2018. TECHNIQUE: CT abdomen and pelvis with IV and oral contrast. Multiplanarreformatted images generated. Automated exposure control utilized. CT ABDOMEN AND PELVIS FINDINGS: Lung bases/heart: Imaged heart is normal. Dependent atelectasis. There josh chronic 8 mm AVM in the posterior right lower lobe base. Spleen: Normal. Liver: Normal. Gallbladder/biliary tree: Normal. Pancreas: Stable moderate diffuse fatty infiltration and atrophy. Adrenal glands: Normal. Vasculature: Stable mild aortic calcified plaque. No AAA or acutefindings. Genitourinary: Kidneys, bladder and uterus are within normal limits. Noadnexal masses. Stable 1.3 cm right adnexal region cyst which mayrepresent a paraovarian cyst. No free fluid in the cul-de-sac. Gastrointestinal tract: Unremarkable. Peritoneum/retroperitoneum: No enlarged lymph nodes, ascites or fluidcollections. Musculoskeletal: Chronic small fat-containing umbilical hernia. Stablemild bilateral hip arthritis, mild L4-5 disc disease and lower lumbarspine facet arthropathy. No compression fractures. No destructive orsuspicious bone lesions. IMPRESSION: 1.No findings to account for the patient's right lower quadrant pain. 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 3.Additional stable findings as above. us Seth Jeter MD IMG CT ABD/PELVIS Final Resu lt documented in this encounter Visit Diagnoses Diagnosis Abnormal findings on diagnostic imaging of liver and biliary tract- Primary RLQ abdominal pain Abdominal pain, right lower quadrant Abnormal findings on diagnostic imaging of liver and biliary tract RLQ abdominal pain Abdominal pain, right lower quadrant documented in this encounter Additional Health Concerns Infection Onset Date Last Indicated Resolved Time CoV-Risk 12/21/2021 12/21/2021 01/01/2022 1:22 AM EDT documented as of this encounter Care Teams Drawer Waxer Relationship Specialty Start Date End Date Jacquelyn Chandler MD [address] [place] [phone] [email or web address] PCP - General Internal Medicine 12/01/17 01/28/23 Jessy Andersen NP [address] [place] [address] PCP - General Nurse Practitioner 01/29/23 documented as of this encounter Additional Source Comments The information contained in this document represents components of the legal health record. It is not the complete legal health record.[facility]
--- OUTSIDE RECORDS SUMMARY | 2024-11-02 11:16 | XMS_ITS | Encounter Summary ---
Author Organization [facility] Address [address] [place] [address] Phone Care Team Providers Care Dialysis Clinical Manager Name Role Phone Jacquelyn Chandler MD Primary Care Provider Jessy Andersen NP Primary Care Provider Encounter Details Date Type Department Care Team (Latest Contact Info) Description 12/05/2021 Transcribe Orders Virtual Department 30 [place] [address] Nat Tam PA [address] [place] [phone] Pelvic pain (Primary Dx) Social History Tobacco Use Types [...] st Contact Info) Description 09/28/2024 Procedure Pass [facility] - [address] [place] [address] 11/07/2024 11:30 AM EDT Office Visit [address] [address] Brooke Pressley MD [address] [address] Kim Braun, PT 380 [place] [address] 11/14/2024 11:30 AM EDT Office Visit [address] [address] Brooke Pressley MD [address] [address] Kim Braun, PT 380 [place] [address] 11/21/2024 11:30 AM EDT Office Visit [address] [address] Brooke Pressley MD [address] [address] Kim Braun, PT 380 [place] [address] 11/28/2024 11:30 AM EDT Office Visit [address] [address] Brooke Pressley MD [address] [address] Kim Braun, PT 380 [place] [address] 05/10/2025 9:15 AM EDT Appointment [address] [place], [place] [address] Jessy Andersen, VICE PRESIDENT OF PRODUCT MARKETING [address] [place] [address] documented as of this encounter Results * US PELVIS TRANSABDOMINAL PLUS TRANSVAGINAL (12/31/2021 1:31 PM EDT) Anatomical Region Laterality Modality Pelvis, Uterus/Adnexa Ultrasound 12/31/2021 5:08 PM EDT Impressions 12/31/2021 5:14 PM EDT 1.Fibroid uterus. 2.Simple 1.0 cm cyst at the right ovary. Such lesions are clinically inconsequential and no imaging follow-up is recommended per guidelines below Recommendations for adnexal cyst follow-up per Society of Radiologists in Ultrasound 2009 consensus statement on management of asymptomatic and ovarian and other adnexal cysts (Perez et al., Radiology 2010 256: 943-54). Narrative 12/31/2021 5:14 PM EDT US PELVIS TRANSABDOMINAL PLUS TRANSVAGINAL TECHNIQUE: Pelvic Ultrasound Transabdominal performed for global imaging of the pelvis. Pelvic Ultrasound Transvaginal performed for detailed imaging of the endometrium and/or adnexa. COMPARISON: Pelvic sonography 10/09/[address] abdomen pelvis 10/15/2021 FINDINGS: Uterus: Size: 7.6 x 2.1 x 3.2 cm. Orientation: anteverted Myometrium: Myometrium is again noted to be heterogeneous suggestive of fibroids. There is a 1.0 cm anterior subserosal fibroid and a 0.8 cm posterior intramural fibroid with possible submucosal component. Endometrium: Normal. Thickness: 2 mm. Right adnexa: Ovary: The right ovary measures 2.4 x 1.6 x 1.5 cm. Normal color and spectral Doppler waveform analysis. There is a 1.0 cm anechoic cyst. Left adnexa: Ovary: Normal. The left ovary measures 2.3 x 1.2 x 1.6 cm. Normal color and spectral Doppler waveform analysis. Free fluid: No significant free fluid. Procedure Note Marisela Larson MD - 12/31/2021 US PELVIS TRANSABDOMINAL PLUS TRANSVAGINAL TECHNIQUE: Pelvic Ultrasound Transabdominal performed for global imagingof the pelvis. Pelvic Ultrasound Transvaginal performed for detailedimaging of the endometrium and/or adnexa. COMPARISON: Pelvic sonography 10/09/[address] abdomen pelvis 10/15/2021 FINDINGS: Uterus: Size: 7.6 x 2.1 x 3.2 cm. Orientation: anteverted Myometrium: Myometrium is again noted to be heterogeneous suggestive offibroids. There is a 1.0 cm anterior subserosal fibroid and a 0.8 cmposterior intramural fibroid with possible submucosal component. Endometrium: Normal. Thickness: 2 mm. Right adnexa: Ovary: The right ovary measures 2.4 x 1.6 x 1.5 cm. Normal color and spectralDoppler waveform analysis. There is a 1.0 cm anechoic cyst. Left adnexa: Ovary: Normal. The left ovary measures 2.3 x 1.2 x 1.6 cm. Normal color andspectral Doppler waveform analysis. Free fluid: No significant free fluid. IMPRESSION: 1.Fibroid uterus. 2.Simple 1.0 cm cyst at the right ovary. Such lesions are clinicallyinconsequential and no imaging follow-up is recommended per guidelinesbelow Recommendations for adnexal cyst follow-up per Society of Radiologists inUltrasound 2009 consensus statement on management of asymptomatic andovarian and other adnexal cysts (Perez et al., Radiology 2010 256:943-54). us Nat GONZALEZ IMG US PELVIS Final Resul t documented in this encounter Visit Diagnoses Diagnosis Pelvic pain- Primary Pelvic pain documented in this encounter Additional Health Concerns Infection Onset Date Last Indicated Resolved Time CoV-Risk 12/21/2021 12/21/2021 01/01/2022 1:22 AM EDT Assessment Noted Time PHQ-2 Depression Total Score: 0 07/30/19 10:09 AM EDT documented as of this encounter Care Teams Dialysis Clinical Manager Relationship Specialty Start Date End Date Jacquelyn Chandler MD [address] [place] [phone] [email or web address] PCP - General Internal Medicine 12/01/17 01/28/23 Jessy Andersen NP [address] [place] [address] 1 [place] [address] PCP - General Nurse Practitioner 01/29/23 documented as of this encounter Additional Source Comments The information contained in this document represents components of the legal health record. It is not the complete legal health record.[facility]
--- OUTSIDE RECORDS SUMMARY | 2024-11-02 11:16 | XMS_ITS | Encounter Summary ---
Author Organization [facility] Address [address] [place] [address] Phone Care Team Providers Care Transportation Job Titles Name Role Phone Jacquelyn Chandler MD Primary Care Provider [phone] Jessy Andersen NP Primary Care Provider Reason for Referral * MRI/CAT Scan - Closed Specialty Diagnoses / Procedures Referred By Gabriele canales Referred To Contact Radiology Diagnoses Nausea LLQ pain Procedures CT Abdomen/Pelvis Seth Jeter MD Phone: tel: fax: [email or web address] Referral ID Status Reason Start Date Expiration Date Visits Re quested Visits Authorized [id number] Closed 08/17/2018 11/15/2018 1 1 Encounter Details Date Type Department Care Team (Latest Contact Info) Description 08/18/2018 Transcribe Orders Virtual Department 30 [place] [address] Seth Jeter MD [address] [place] [phone] [email or web address] Nausea (Primary Dx); LLQ pain Social History Tobacco Use Types Packs/Day [...] 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 Not on file Not on file documented as of this encounter Plan of Treatment Upcoming Encounters Date Type Department Care Team (Late st Contact Info) Description 09/28/2024 Procedure Pass [facility] - [address] [place] [address] 11/07/2024 11:30 AM EDT Office Visit [facility] [address] [place] [address] Brooke Pressley MD [address] [address] Kim Braun, PT 380 [place] [address] [email or web address] 11/14/2024 11:30 AM EDT Office Visit [facility] [address] [place] [address] Brooke Pressley MD [address] [address] Kim Braun, PT 380 [place] [address] [email or web address] 11/21/2024 11:30 AM EDT Office Visit [address] [address] Brooke Pressley MD [address] [address] Kim Braun, PT 380 [place] [address] [email or web address] 11/28/2024 11:30 AM EDT Office Visit [facility] [address] [place] [address] Brooke Pressley MD 299 [facility] [address] [place] [address] Kim Braun, PT [address] [place] [address] [email or web address] 05/10/2025 9:15 AM EDT Appointment [address] [place] [address] Jessy Andersen, COLLISION ESTIMATOR 73 [facility] [place] [address] documented as of this encounter Results * CT ABDOMEN/PELVIS WITH CONTRAST (08/26/2018 9:44 AM EDT) Anatomical Region Laterality Modality Abdomen, Pelvis Computed Tomogra phy 08/26/2018 10:2 6 AM EDT Impressions 08/26/2018 11:50 AM EDT No source of the symptoms identified. 13 mm cyst right ovary without worrisome features by CT. Follow-up ultrasound suggested to ensure there are no suspicious features as it is over a centimeter. This could be performed endovaginally only. TOTAL CTDIvol: 5.8 mGy POS - [id number] Edited by: Karen Jin on 08/26/2018 10:37 AM Narrative 08/26/2018 11:50 AM EDT HISTORY: Nausea and left lower quadrant abdominal pain. COMPARISON: Right upper quadrant ultrasound May 1. TECHNIQUE: After the administration of oral and intravenous contrast, multidetector CT is obtained from dome of the liver through the inferior pubic rami. Sagittal and coronal reformats generated. Automated exposure control utilized. FINDINGS: Lung bases: No findings of concern. Liver and spleen: Left hepatic lobe has a far lateral extent, curving around the anterior margin of the spleen. No focal lesions. No organomegaly. Spleen unremarkable. Biliary tree and pancreas: Pancreas is quite fatty. No biliary abnormality. No masses seen. No stones apparent. Adrenals and : No renal or adrenal findings of concern. Bladder unremarkable. Uterus present and at the midline. No worrisome adnexal masses. Suggestion of a small cyst without suspicious features in the right ovary measuring approximately 13 mm. Bowel: Stomach and duodenum unremarkable. Ileal and jejunal fold patterns unremarkable. Appendix unremarkable. No evidence of colitis or diverticulitis. Transverse colon extends quite low into the pelvis. Fairly large volumes of stool in the distal transverse colon and proximal left colon. Nodes: No adenopathy detected. Vascular: Minor atherosclerotic changes in the aorta. No findings of concern. Soft tissues: No ascites, inflammatory change or fluid collection. No bowel-containing hernias. Bones: Minor degenerative changes. No findings of concern. Procedure Note Madie Caal MD - 08/26/2018 HISTORY: Nausea and left lower quadrant abdominal pain. COMPARISON: Right upper quadrant ultrasound June 30. TECHNIQUE: After the administration of oral and intravenous contrast,multidetector CT is obtained from dome of the liver through the inferiorpubic rami. Sagittal and coronal reformats generated. Automated exposurecontrol utilized. FINDINGS: Lung bases: No findings of concern. Liver and spleen: Left hepatic lobe has a far lateral extent, curvingaround the anterior margin of the spleen. No focal lesions. Noorganomegaly. Spleen unremarkable. Biliary tree and pancreas: Pancreas is quite fatty. No biliaryabnormality. No masses seen. No stones apparent. Adrenals and : No renal or adrenal findings of concern. Bladderunremarkable. Uterus present and at the midline. No worrisome adnexalmasses. Suggestion of a small cyst without suspicious features in theright ovary measuring approximately 13 mm. Bowel: Stomach and duodenum unremarkable. Ileal and jejunal fold patternsunremarkable. Appendix unremarkable. No evidence of colitis ordiverticulitis. Transverse colon extends quite low into the pelvis. Fairlylarge volumes of stool in the distal transverse colon and proximal leftcolon. Nodes: No adenopathy detected. Vascular: Minor atherosclerotic changes in the aorta. No findings ofconcern. Soft tissues: No ascites, inflammatory change or fluid collection. Nobowel- containing hernias. Bones: Minor degenerative changes. No findings of concern. IMPRESSION: No source of the symptoms identified. 13 mm cyst right ovary withoutworrisome features by CT. Follow-up ultrasound suggested to ensure thereare no suspicious features as it is over a centimeter. This could beperformed endovaginally only. TOTAL CTDIvol: 5.8 mGy POS - [id number] Edited by: Karen Jin on 08/26/2018 10:37 AM Seth Jeter MD IMG CT ABD/PELVIS Final Resu lt documented in this encounter Visit Diagnoses Diagnosis Nausea- Primary Nausea alone LLQ pain Abdominal pain, left lower quadrant Nausea Nausea alone LLQ pain Abdominal pain, left lower quadrant documented in this encounter Additional Health Concerns Infection Onset Date Last Indicated Resolved Time CoV-Risk 12/21/2021 12/21/2021 01/01/2022 1:22 AM EDT documented as of this encounter Care Teams Transportation Job Titles Relationship Specialty Start Date End Date Jacquelyn Chandler MD [address] [place] [address] PCP - General Internal Medicine 12/01/17 01/28/23 Jessy Andersen NP [address] [place] [address] PCP - General Nurse Practitioner 01/29/23 documented as of this encounter Additional Source Comments The information contained in this document represents components of the legal health record. It is not the complete legal health record.[facility]
--- OUTSIDE RECORDS SUMMARY | 2024-11-02 11:16 | XMS_ITS | Encounter Summary ---
Author Organization [facility] Address [address] [place] [address] Phone Care Team Providers Care Retail Support Associate Name Role Phone Jacquelyn Chandler MD Primary Care Provider Jessy Andersen NP Primary Care Provider Encounter Details Date Type Department Care Team (Late st Contact Info) Description 09/26/2021 Procedure Pass [facility] - [address] [address] Social History Tobacco Use Types Packs/Day Years [...] st Contact Info) Description 09/28/2024 Procedure Pass [facility] - [address] [place] [address] 11/07/2024 11:30 AM EDT Office Visit [address] [address] Brooke Pressley MD [address] [address] Kim Braun, PT 380 [place] [address] 11/14/2024 11:30 AM EDT Office Visit [facility] [address] [place] [address] Brooke Pressley MD [address] [address] Kim Braun, PT 380 [place] [address] 11/21/2024 11:30 AM EDT Office Visit [facility] [address] [place] [address] Brooke Pressley MD [address] [address] Kim Braun, PT 380 [place] [address] 11/28/2024 11:30 AM EDT Office Visit [address] [address] Brooke Pressley MD [address] [address] Kim Braun, PT 380 [place] [address] 05/10/2025 9:15 AM EDT [facility]ment [facility] [address] [place] [address] Jessy Andersen NP [address] [place] [address] documented as of this encounter Visit Diagnoses Not on filedocumented in this encounter Additional Health Concerns Infection Onset Date Last Indicated Resolved Time CoV-Risk 12/21/2021 12/21/2021 01/01/2022 1:22 AM EDT Assessment Noted Time PHQ-2 Depression Total Score: 0 07/30/19 10:09 AM EDT documented as of this encounter Care Teams Retail Support Associate Relationship Specialty Start Date End Date Jacquelyn Chandler MD [address] [place] [address] PCP - General Internal Medicine 12/01/17 01/28/23 Jessy Andersen NP [address] [place] [address] PCP - General Nurse Practitioner 01/29/23 documented as of this encounter Additional Source Comments The information contained in this document represents components of the legal health record. It is not the complete legal health record.[facility]
--- OUTSIDE RECORDS SUMMARY | 2024-11-02 11:16 | XMS_ITS | Encounter Summary ---
Author Organization 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 Not on file documented as of this encounter Plan of Treatment Upcoming Encounters Date Type Department Care Team (Late st Contact Info) Description 09/28/2024 Procedure Pass [address] [place] [address] 11/07/2024 11:30 AM EDT Office Visit [facility] [address] [place] [address] Brooke Pressley MD [address] [address] Kim Braun, PT [address] [place] [address] 11/14/2024 11:30 AM EDT Office Visit [facility] [address] [place] [address] Brooke Pressley MD [address] [address] Kim Braun, PT 380 [place] [address] 11/21/2024 11:30 AM EDT Office Visit [facility] [address] [place] [address] Brooke Pressley MD [address] [address] Kim Braun, PT 380 [place] [address] 11/28/2024 11:30 AM EDT Office Visit [facility] [address] [place] [address] Brooke Pressley MD [address] [address] Kim Braun, PT 380 [place] [address] 05/10/2025 9:15 AM EDT Appointment [facility] - [address] [place] [address] Jessy Andersen, [place] [address] [place] [address] documented as of this encounter Results * BI MAMMOGRAM SCREENING WITH TOMOSYNTHESIS WITH CAD (BILATERAL) (01/14/2019 8:26 AM EST) Anatomical Region Laterality Modality Breast Left, Breast Right, Breast Bilateral Bila teral Mammography 01/14/2019 8:36 AM EST Impressions 01/14/2019 8:38 AM EST No mammographic evidence of malignancy. BI-RADS CATEGORY: 1 - Negative. DENSITY: There are scattered fibroglandular densities. POS - CDHMAMA Narrative 01/14/2019 8:38 AM EST Standard digital full-field 2-D C view and two-plane tomographic imaging was performed and compared with multiple prior studies, most recently an outside mammogram dated 01/12/2018, with utilization of computer-aided detection. The breasts are composed of scattered fibroglandular densities. The stromal markings are essentially unchanged in overall appearance and distribution. No dominant spiculated mass, suspicious clustered microcalcifications, or focal zone of pathologic skin thickening or retraction are noted to have arisen in the interim. Procedure Note Jodee Farah MD - 01/14/2019 Standard digital full-field 2-D C view and two-plane tomographic imagingwas performed and compared with multiple prior studies, most recently anoutside mammogram dated 01/12/2018, with utilization of computer-aideddetection. The breasts are composed of scattered fibroglandular densities. Thestromal markings are essentially unchanged in overall appearance anddistribution. No dominant spiculated mass, suspicious clusteredmicrocalcifications, or focal zone of pathologic skin thickening orretraction are noted to have arisen in the interim. IMPRESSION: No mammographic evidence of malignancy. BI-RADS CATEGORY: 1 - Negative. DENSITY: There are scattered fibroglandular densities. POS - CDHMAMA us Jacquelyn Chandler MD IMG MG EXAMS Final Result documented in this encounter Visit Diagnoses Diagnosis Breast screening Breast screening, unspecified Breast screening Breast screening, unspecified documented in this encounter Additional Health Concerns Infection Onset Date Last Indicated Resolved Time CoV-Risk 12/21/2021 12/21/2021 01/01/2022 1:22 AM EDT documented as of this encounter Care Teams Log Turner Relationship Specialty Start Date End Date Jacquelyn Chandler MD [address] [place] [address] PCP - General Internal Medicine 12/01/17 01/28/23 Jessy Andersen NP [address] [place] [address] PCP - General Nurse Practitioner 01/29/23 documented as of this encounter Additional Source Comments The information contained in this document represents components of the legal health record. It is not the complete legal health record.[facility]
--- OUTSIDE RECORDS SUMMARY | 2024-11-02 11:16 | XMS_ITS | Encounter Summary ---
Author Organization [facility] Address [address] [place] [address] Phone Care Team Providers Care Host Name Role Phone Jacquelyn Chandler MD Primary Care Provider Jessy Andersen NP Primary Care Provider Encounter Details Date Type Department Care Team (Late st Contact Info) Description 06/24/2018 Ancillary Orders [facility], X-Ray - [address] [place] [address] Cammie Rodriguez PA-C [address] 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 Not on file documented as of this encounter Plan of Treatment Upcoming Encounters Date Type Department Care Team (Late st Contact Info) Description 09/28/2024 Procedure Pass [facility] - [address] [place] [address] 11/07/2024 11:30 AM EDT Office Visit [address] [address] Brooke Pressley MD [address] [address] Kim Braun, PT 380 [place] [address] 11/14/2024 11:30 AM EDT Office Visit [address] [place] [address] [address] Brooke Pressley MD [address] [address] Kim Braun, PT 380 [place] [address] 11/21/2024 11:30 AM EDT Office Visit [address] [address] Brooke Pressley MD [address] [address] Kim Braun, PT 380 [place] [address] 11/28/2024 11:30 AM EDT Office Visit [address] [address] Brooke Pressley MD [address] [address] Kim Braun, PT 380 [place] [address] 05/10/2025 9:15 AM EDT Appointment [address] [place] [address] Jessy Andersen NP [address] [place] [address] documented as of this encounter Results * XR FOOT 3 OR MORE VIEWS (LEFT) (06/24/2018 10:30 AM EDT) Anatomical Region Laterality Modality Foot Left Radiographic Yolie ging 06/24/2018 12:3 4 PM EDT Impressions 06/24/2018 3:12 PM EDT Calcaneal spurring and ligamentous calcification. No fracture or dislocation. POS - [id number] Narrative 06/24/2018 3:12 PM EDT XR FOOT 3 OR MORE VIEWS (LEFT) HISTORY: LT foot pain , pain worse w. wt bearing pain calcaneus and lateral foot , pain over 5th metatarsal r/o FX/ stress fx TECHNIQUE: 3 views left foot. COMPARISON: None FINDINGS: No acute fracture or dislocation. Normal alignment of the bones. No joint erosions. Several well-corticated bone fragments adjacent to the lateral margin of the cuboid, likely ligamentous calcification. There is dorsal calcaneal enthesopathy with spurring. Procedure Note Indy Barker MD - 06/24/2018 XR FOOT 3 OR MORE VIEWS (LEFT) HISTORY: LT foot pain , pain worse w. wt bearing pain calcaneus andlateral foot , pain over 5th metatarsal r/o FX/ stress fx TECHNIQUE: 3 views left foot. COMPARISON: None FINDINGS: No acute fracture or dislocation. Normal alignment of the bones. No jointerosions. Several well-corticated bone fragments adjacent to the lateralmargin of the cuboid, likely ligamentous calcification. There is dorsal calcaneal enthesopathy with spurring. IMPRESSION: Calcaneal spurring and ligamentous calcification. No fracture or dislocation. POS - [id number] Cammie Varghese Jennifer POP IMG XR LOWER EXTREMITY Final Result documented in this encounter Visit Diagnoses Diagnosis Left foot pain Pain in soft tissues of limb Left foot pain Pain in soft tissues of limb documented in this encounter Additional Health Concerns Infection Onset Date Last Indicated Resolved Time CoV-Risk 12/21/2021 12/21/2021 01/01/2022 1:22 AM EDT documented as of this encounter Care Teams Host Relationship Specialty Start Date End Date Jacquelyn Chandler MD [address] [place] [address] [email or web address] PCP - General Internal Medicine 12/01/17 01/28/23 Jessy Andersen NP [address] [place] [address] PCP - General Nurse Practitioner 01/29/23 documented as of this encounter Additional Source Comments The information contained in this document represents components of the legal health record. It is not the complete legal health record.[facility]
--- OUTSIDE RECORDS SUMMARY | 2024-11-02 11:16 | XMS_ITS | Encounter Summary ---
Author Organization [facility] Address [address] [place] [address] Phone Care Team Providers Care Agency Service Coordinator Name Role Phone Jacquelyn Chandler MD Primary Care Provider Jessy Andersen NP Primary Care Provider Encounter Details Date Type Department Care Team (Latest Contact Info) Description 08/16/2018 Transcribe Orders [address] [place] [address] Seth Jeter MD [address] [place] [address] [email or web address] LLQ pain (Primary Dx); Nausea Social History Tobacco Use Types Packs/Day Years [...] 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 11/21/2024 11:30 AM EDT Office Visit [address] [address] Brooke Pressley MD [address] [address] Kim Braun, PT 380 [place] [address] [email or web address] 11/28/2024 11:30 AM EDT Office Visit [address] [address] Brooke Pressley MD [address] [address] Kim Braun, PT [address] [place] [address] [email or web address] 05/10/2025 9:15 AM EDT Appointment [address] [place] [address] Jessy Andersen NP [address] [place] [address] documented as of this encounter Results * Creatinine/eGFR (08/16/2018 9:25 AM EDT) CREATININE 0.90 0.5 - 1.5 mg/dL [facility] EGFR 69 >59 mL/min/1.7 3m2 [facility] Comment:If patient is black, multiply result by 1.159. Estimated glomerular filtration rate calculated using the CKD-EPI equation. Blood 08/16/2018 9:25 AM EDT 08/16/2018 9:29 AM EDT us Seth Jeter MD LAB BLOOD ORDERABLES Final R esult Performing Organization Address City/[facility] Co de Phone Number [address] [address] * BUN (08/16/2018 9:25 AM EDT) BUN 13 6 - 19 mg/dL [facility] Blood 08/16/2018 9:25 AM EDT 08/16/2018 9:29 AM EDT us Seth Jeter MD LAB BLOOD ORDERABLES Final R esult Performing Organization Address [facility] Co de Phone Number [address] [address] documented in this encounter Visit Diagnoses Diagnosis LLQ pain- Primary Abdominal pain, left lower quadrant Nausea Nausea alone documented in this encounter Additional Health Concerns Infection Onset Date Last Indicated Resolved Time CoV-Risk 12/21/2021 12/21/2021 01/01/2022 1:22 AM EDT documented as of this encounter Care Teams Agency Service Coordinator Relationship Specialty Start Date End Date Jacquelyn Chandler MD [address] [place] [address] [email or web address] PCP - General Internal Medicine 12/01/17 01/28/23 Jessy Andersen NP [address] [place] [address] PCP - General Nurse Practitioner 01/29/23 documented as of this encounter Additional Source Comments The information contained in this document represents components of the legal health record. It is not the complete legal health record.[facility]
--- OUTSIDE RECORDS SUMMARY | 2024-11-02 11:16 | XMS_ITS | Encounter Summary ---
Author Organization [facility] Address [address] [place] [address] Phone Care Team Providers Care Room Designer Name Role Phone Jacquelyn Chandler MD Primary Care Provider Jessy Andersen NP Primary Care Provider Reason for Referral * Outpatient Procedure - Closed Specialty Diagnoses / Procedures Referred By Gabriele canales Referred To Contact Radiology Diagnoses Abdominal pain, epigastric Nausea Procedures NM Gastric Emptying Seth Jeter MD Phone: tel: fax: [email or web address] Referral ID Status Reason Start Date Expiration Date Visits Re quested Visits Authorized [id number] Closed 06/07/2018 06/07/2019 1 1 Encounter Details Date Type Department Care Team (Latest Contact Info) Description 06/07/2018 Transcribe Orders Virtual Department 30 [place] [address] Seth Jeter MD [address] [place] [address] [email or web address] Abdominal pain, epigastric (Primary Dx); Nausea Social History Tobacco Use [...] 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 Not on file documented as of this encounter Plan of Treatment Upcoming Encounters Date Type Department Care Team (Late st Contact Info) Description 09/28/2024 Procedure Pass [facility] - [address] [place] [address] 11/07/2024 11:30 AM EDT Office Visit [facility] [address] [place] [address] Brooke Pressley MD [address] [address] Kim Braun, PT [address] [place] [address] [email or web address] 11/14/2024 11:30 AM EDT Office Visit [facility] [address] [place] [address] Brooke Pressley MD [address] [address] Kim Braun, PT [address] [place] [address] [email or web address] 11/21/2024 11:30 AM EDT Office Visit [address] [address] Brooke Pressley MD [address] [address] Kim Braun, PT 380 [place] [address] [email or web address] 11/28/2024 11:30 AM EDT Office Visit [facility] [address] [place] [address] Brooke Pressley MD 299 [facility] [address] [place] [address] Kim Braun, PT [address] [place] [address] [email or web address] 05/10/2025 9:15 AM EDT Appointment [address] [place] [address] Jessy Andersen, BANDAGE MAKER [address] [place] [address] documented as of this encounter Results * NM GASTRIC EMPTYING SOLID PHASE (06/30/2018 12:45 PM EDT) Anatomical Region Laterality Modality Abdomen, Pelvis Nuclear Medicine 06/30/2018 1:45 PM EDT Impressions 06/30/2018 1:47 PM EDT Normal study. POS [id number] Narrative 06/30/2018 1:47 PM EDT HISTORY: Epigastric pain and nausea. COMPARISON: Ultrasound abdomen 06/30/2018. DOSE: 0.993 sulfur colloid in scrambled eggs. EXAM: Nuclear medicine gastric emptying study. FINDINGS: Percent of gastric retention of solids is calculated at one hour, two hours and four hours. This measures 78.6%, 49.1% and 2.4%, respectively. All values are within normal limits. Procedure Note Seth Silva MD - 06/30/2018 HISTORY: Epigastric pain and nausea. COMPARISON: Ultrasound abdomen 06/30/2018. DOSE: 0.993 sulfur colloid in scrambled eggs. EXAM: Nuclear medicine gastric emptying study. FINDINGS: Percent of gastric retention of solids is calculated at one hour, twohours and four hours. This measures 78.6%, 49.1% and 2.4%, respectively.All values are within normal limits. IMPRESSION: Normal study. POS [id number] Seth Jeter MD [facility] NM ABDOMEN Final Result * US ABDOMEN LIMITED RIGHT UPPER QUADRANT (06/30/2018 8:28 AM EDT) Anatomical Region Laterality Modality Abdomen Ultrasound 06/30/2018 8:22 AM EDT Impressions 06/30/2018 8:33 AM EDT No findings to account for the patient's symptoms. POS [id number] Narrative 06/30/2018 8:33 AM EDT COMPARISON: None. LIMITED ABDOMEN ULTRASOUND FINDINGS: Liver: Normal. Gallbladder/Biliary Tree: Gallbladder is normal. The common bile duct measures 4 mm which is normal. Pancreas: Imaged pancreas normal. The pancreatic tail is obscured by bowel gas. Right Kidney: No hydronephrosis. Proximal abdominal aorta/IVC: Unremarkable. Procedure Note Pola Williamson MD - 06/30/2018 COMPARISON: None. LIMITED ABDOMEN ULTRASOUND FINDINGS: Liver: Normal. Gallbladder/Biliary Tree: Gallbladder is normal. The common bile ductmeasures 4 mm which is normal. Pancreas: Imaged pancreas normal. The pancreatic tail is obscured bybowel gas. Right Kidney: No hydronephrosis. Proximal abdominal aorta/IVC: Unremarkable. IMPRESSION: No findings to account for the patient's symptoms. POS [id number] Seth CRISTINA US ABDOMEN Final Result documented in this encounter Visit Diagnoses Diagnosis Abdominal pain, epigastric- Primary Nausea Nausea alone Abdominal pain, epigastric Nausea Nausea alone Abdominal pain, epigastric Nausea Nausea alone documented in this encounter Additional Health Concerns Infection Onset Date Last Indicated Resolved Time CoV-Risk 12/21/2021 12/21/2021 01/01/2022 1:22 AM EDT documented as of this encounter Care Teams Room Designer Relationship Specialty Start Date End Date Jacquelyn Chandler MD [address] [place] [address] [email or web address] PCP - General Internal Medicine 12/01/17 01/28/23 Jessy Andersen NP [address] [place] [address] PCP - General Nurse Practitioner 01/29/23 documented as of this encounter Additional Source Comments The information contained in this document represents components of the legal health record. It is not the complete legal health record.[facility]
--- OUTSIDE RECORDS SUMMARY | 2024-11-02 11:16 | XMS_ITS | Encounter Summary ---
Author Organization [email or web address] Address [address] [facility] 7[address] [place] [address] Care Team Providers Care Vice President Medical Affairs Name Role Phone [facility] Primary Care Provider [phone] Encounter Details Date Type Department Care Team (Late st Contact Info) Description 09/01/2024 Orders Only [facility] [address] [place] [address] Jessy Andersen, [facility] [address] [place] [address] Social History Tobacco Use Types Packs/Day Years [...] Care Team (Late st Contact Info) Description 12/22/2024 11:40 AM EDT Office Visit [facility] [address] [place] [address] [place], [place] [facility] [address] [place] [address] documented as of this encounter Procedures Procedure Name Priority Date/Time Associated Diagnosis Comments COMPREHENSIVE METABOLIC PANEL Routine 08/29/2024 11:29 AM EDT documented in this encounter Results * Comprehensive Metabolic Panel (08/29/2024 11:29 AM EDT) Blood Venous blood specimen / Unknown [facility] LAB BLOOD ORDERABLES Aan l Result documented in this encounter Visit Diagnoses Not on filedocumented in this encounter Care Teams Vice President Medical Affairs Relationship Specialty Start Date End Date Jessy Andersen FNP [address] [place] [address] PCP - General Family Medicine 10/01/22 documented as of this encounter
--- OUTSIDE RECORDS SUMMARY | 2024-11-02 11:17 | XMS_ITS | Encounter Summary ---
Author Organization [facility] Address [address] [place] [address] Phone Care Team Providers Care Supervisor Laboratory Animal Facility Name Role Phone Jacquelyn Chandler MD Primary Care Provider [phone] Jessy Andersen NP Primary Care Provider Reason for Referral * Consultation (Elective) - Closed Specialty Diagnoses / Procedures Referred By Gabriele canales Referred To Contact Pulmonary Disease Jacquelyn Chandler MD Phone: tel: mailto:[email or web address] [facility] [address] [place] [address] Phone: tel: Referral ID Status Reason Start Date Expiration Date Visits Re quested Visits Authorized [id number] Closed 06/21/2020 06/21/2021 1 1 Encounter Details Date Type Department Care Team (Late st Contact Info) Description 06/21/2020 Transcribe Orders CD Pulmonary, Allergy and Critical Care Medicine 10 [place] [address] Jacquelyn Chandler MD [address] [place] [address] [email or web address] Social History Tobacco Use Types Packs/Day Years [...] Contact Info) Description 09/28/2024 Procedure Pass [facility] - [address] [place] [address] 11/07/2024 11:30 AM EDT Office Visit [facility] [address] [place] [address] Brooke Pressley MD [address] [address] Kim Braun, PT [address] [place] [address] [email or web address] 11/14/2024 11:30 AM EDT Office Visit [address] [address] Brooke Pressley MD [address] [address] Kim Braun, PT [address] [place] [address] [email or web address] 11/21/2024 11:30 AM EDT Office Visit [address] [address] Brooke Pressley MD [address] [address] Kim Braun, PT [address] [place] [address] [email or web address] 11/28/2024 11:30 AM EDT Office Visit [facility] [address] [place] [address] Brooke Pressley MD 299 [facility] [address] [place] [address] Kim Braun, PT [address] [place] [address] [email or web address] 05/10/2025 9:15 AM EDT Appointment [address] [place] [address] Jessy Andersen NP [address] [place] [address] Scheduled Referrals Name Type Priority Associated Diagnoses Order Schedule Ambulatory referral to [facility] Pulmonology Outpatient Referral Routine Ordered: 06/21/2020 documented as of this encounter Visit Diagnoses Not on filedocumented in this encounter Additional Health Concerns Infection Onset Date Last Indicated Resolved Time CoV-Risk 12/21/2021 12/21/2021 01/01/2022 1:22 AM EDT documented as of this encounter Care Teams Supervisor Laboratory Animal Facility Relationship Specialty Start Date End Date Jacquelyn Chandler MD [address] [place] [address] PCP - General Internal Medicine 12/01/17 01/28/23 Jessy Andersen NP [address] [place] [address] PCP - General Nurse Practitioner 01/29/23 documented as of this encounter Additional Source Comments The information contained in this document represents components of the legal health record. It is not the complete legal health record.[facility]
--- OUTSIDE RECORDS SUMMARY | 2024-11-02 11:17 | XMS_ITS | Encounter Summary ---
Author Organization [facility] Address [address] [place] [address] Phone Care Team Providers Care Security Technician Name Role Phone Jacquelyn Chandler MD Primary Care Provider Jessy Andersen NP Primary Care Provider Encounter Details Date Type Department Care Team (Late st Contact Info) Description 08/09/2020 Ancillary Orders [facility] [place],Outside [facility] [address] [place], [place] [id number] System, Provider Not In, PhD Partners [address] [address] Social History Tobacco Use Types Packs/Day Years [...] st Contact Info) Description 09/28/2024 Procedure Pass [facility] - [address] [place] [address] 11/07/2024 11:30 AM EDT Office Visit [facility] [address] [place] [address] Brooke Pressley MD [address] [address] Kim Braun, PT [address] [place] [address] [email or web address] 11/14/2024 11:30 AM EDT Office Visit [facility] [address] [place] [address] Brooke Pressley MD [address] [address] Kim Braun, PT [address] [place] [address] [email or web address] 11/21/2024 11:30 AM EDT Office Visit [facility] [address] [place] [address] Brooke Pressley MD [address] [address] Kim Braun, PT [address] [place] [address] [email or web address] 11/28/2024 11:30 AM EDT Office Visit [facility] [address] [place] [address] Brooke Pressley MD [address] [address] Kim Braun, PT [address] [place] [address] [email or web address] 05/10/2025 9:15 AM EDT Appointment [facility] - [address] [place] [address] Jessy Andersen NP [address] [place] [address] documented as of this encounter Results * CT Chest Outside (No Interpretation) (12/16/2019 12:00 AM EDT) Narrative SYSTEMGENERATED, DOCUMENTATION - 08/09/2020 3:55 PM EDT This study is for PACS storage only and not for interpretation. us Provider Not In System PhD IMG OUTSIDE IMAGING W /OUT INTERPRETATION Final Result documented in this encounter Visit Diagnoses Not on filedocumented in this encounter Additional Health Concerns Infection Onset Date Last Indicated Resolved Time CoV-Risk 12/21/2021 12/21/2021 01/01/2022 1:22 AM EDT documented as of this encounter Care Teams Security Technician Relationship Specialty Start Date End Date Jacquelyn Chandler MD [address] [place] [address] PCP - General Internal Medicine 12/01/17 01/28/23 Jessy Andersen NP [address] [place] [address] PCP - General Nurse Practitioner 01/29/23 documented as of this encounter Additional Source Comments The information contained in this document represents components of the legal health record. It is not the complete legal health record.[facility]
--- OUTSIDE RECORDS SUMMARY | 2024-11-02 11:17 | XMS_ITS | Encounter Summary ---
Author Organization [facility] Address [address] [place] [address] Phone Care Team Providers Care Laundry Superintendent Name Role Phone Jacquelyn Chandler MD Primary Care Provider Jessy Andersen NP Primary Care Provider Encounter Details Date Type Department Care Team (Latest Contact Info) Description 06/18/2020 Transcribe Orders [address] [place] [address] Jacquelyn Chandler MD [address] [place] [address] [email or web address] Screening examination for pulmonary tuberculosis (Primary Dx); Hyperlipidemia, unspecified hyperlipidemia type; Vitamin D deficiency, unspecified Social History Tobacco Use Types Packs/Day Years [...] st Contact Info) Description 09/28/2024 Procedure Pass [facility] - [address] [place] [address] 11/07/2024 11:30 AM EDT Office Visit [facility] [address] [place] [address] Brooke Pressley MD [address] [address] Kim Braun, PT 380 [place] [address] 11/14/2024 11:30 AM EDT Office Visit [address] [address] Brooke Pressley MD [address] [address] Kim Braun, PT [address] [place] [address] 11/21/2024 11:30 AM EDT Office Visit [facility] [address] [place] [address] Brooke Pressley MD [address] [address] Kim Braun, PT [address] [place] [address] 11/28/2024 11:30 AM EDT Office Visit [address] [address] Brooke Pressley MD [address] [address] Kim Braun, PT [address] [place] [address] 05/10/2025 9:15 AM EDT Appointment [address] [place] [address] Jessy Andersen, AMBIKA [address] [place] [address] documented as of this encounter Results * T spot TB test (06/18/2020 8:42 AM EDT) T-SPOT.TB Negative [facility] Comment: (NOTE) Normal Value: Negative A negative test result does not exclude the possibility of exposure to or infection with Mycobacterium tuberculosis (M. tuberculosis). Patients with recent exposure to TB infected individuals exhibiting a negative T-SPOT.TB result should be considered for retesting within 6 weeks or if other relevant clinical symptoms indicate. Results from T-SPOT.TB testing must be used in conjunction with each individual's epidemiological history, current medical status, and results of other diagnostic evaluations. The T-SPOT.TB test is qualitative and results are reported as positive, borderline or negative, given that the test controls perform as expected. In line with the Centers for Disease Control and Prevention's 2010 recommendation to report quantitative measurements alongside the qualitative result, the laboratory provides spot counts for informational purposes only. The T-SPOT.TB test should not be interpreted as a quantitative test. Panel A Spot Count Corrected For Neg Control 0 [facility] Panel B Spot Count Corrected For Neg Control 0 [facility] Negative Control Passed [facility] Positive Control Passed [facility] Blood 06/18/2020 8:42 AM EDT 06/18/2020 8:47 AM EDT us Jacquelyn Chandler MD LAB BLOOD ORDERABLES Final R esult [facility] [address] [place] [address], [facility] [phone] * (ABNORMAL) 25-OH vitamin D (06/18/2020 8:42 AM EDT) 25 OH VIT D (TOTAL) 26(L) 30 - 60 ng/mL [facility] Blood 06/18/2020 8:42 AM EDT 06/18/2020 8:47 AM EDT Jacquelyn Chandler MD LAB BLOOD ORDERABLES Final R [facility] Performing Organization Address City/[facility] Co de Phone Number [address] [address] * Lipid panel (06/18/2020 8:42 AM EDT) HDL 50 mg/dL [facility] Comment: Interpretation <40 mg/dL: Low HDL cholesterol (major risk factor for CHD) Greater than or equal to 60 mg/dL: High HDL cholesterol ( negative risk factor for CHD) HDL - cholesterol is affected by a number of factors, e.g. smoking, excerise, hormones, sex and age. CHOLESTEROL 202 0 - 240 mg/dL [facility] TRIGLYCERIDES 118 30 - 160 mg/dL [facility] LDL 128 50 - 129 mg/dL [facility] Comment: LDL levels in terms of risk for coronary heart disease: <100 mg/dL: Optimal 100-129 mg/dL: Near or above optimal 130-159 mg/dL: Borderline high 160-189 mg/dL: High >190 mg/dL: Very High CARDIAC RISK RATIO 4.0 3.3 - 4.4 C [facility] Blood 06/18/2020 8:42 AM EDT 06/18/2020 8:47 AM EDT Jacquelyn Chandler MD LAB BLOOD ORDERABLES Final R [facility] [address] [address] * CPK (creatine kinase) (06/18/2020 8:42 AM EDT) CREATINE KINASE 48 21 - 215 U/L [facility] Blood 06/18/2020 8:42 AM EDT 06/18/2020 8:47 AM EDT Jacquelyn Chandler MD LAB BLOOD ORDERABLES Final R esult Performing Organization Address [facility]/ZIP Co de Phone Number [address] [address] * Aspartate aminotransferase (AST) (06/18/2020 8:42 AM EDT) AST 26 0 - 37 U/L [facility] Blood 06/18/2020 8:42 AM EDT 06/18/2020 8:47 AM EDT Jacquelyn Chandler MD LAB BLOOD ORDERABLES Final R esult Performing Organization Address [facility]/ZIP Co de Phone Number [address] [address] * Alanine aminotransferase (ALT) (06/18/2020 8:42 AM EDT) ALT 25 0 - 40 U/L [facility] Blood 06/18/2020 8:42 AM EDT 06/18/2020 8:47 AM EDT Jacquelyn Chandler MD LAB BLOOD ORDERABLES Final R esult Performing Organization Address [facility] Co de Phone Number [address] [address] documented in this encounter Visit Diagnoses Diagnosis Screening examination for pulmonary tuberculosis- Primary Hyperlipidemia, unspecified hyperlipidemia type Vitamin D deficiency, unspecified documented in this encounter Additional Health Concerns Infection Onset Date Last Indicated Resolved Time CoV-Risk 12/21/2021 12/21/2021 01/01/2022 1:22 AM EDT documented as of this encounter Care Teams Laundry Superintendent Relationship Specialty Start Date End Date Jacquelyn Chandler MD [address] [place] [address] [email or web address] PCP - General Internal Medicine 12/01/17 01/28/23 Jessy Andersen NP [address] [place] [address] PCP - General Nurse Practitioner 01/29/23 documented as of this encounter Additional Source Comments The information contained in this document represents components of the legal health record. It is not the complete legal health record.[facility]
--- OUTSIDE RECORDS SUMMARY | 2024-11-02 11:17 | XMS_ITS | Encounter Summary ---
Author Organization [facility] Address [address] [place] [address] Phone Care Team Providers Care Industrial Technician Name Role Phone Jacquelyn Chandler MD Primary Care Provider Jessy Andersen NP Primary Care Provider Encounter Details Date Type Department Care Team (Latest Contact Info) Description 11/15/2020 Transcribe Orders Virtual Department [address] [place] [address] Seth Jeter MD [address] [place] [address] [email or web address] Encounter for laboratory testing for COVID-19 virus (Primary Dx) Social History Tobacco Use Types [...] st Contact Info) Description 09/28/2024 Procedure Pass [facility] - [address] [place] [address] 11/07/2024 11:30 AM EDT Office Visit [facility] [address] [place] [address] Brooke Pressley MD [address] [address] Kim Braun, PT [address] [place] [address] [email or web address] 11/14/2024 11:30 AM EDT Office Visit [address] [address] Brooke Pressley MD [address] [address] Kim Braun, PT [address] [place] [address] [email or web address] 11/21/2024 11:30 AM EDT Office Visit [address] [address] Brooke Pressley MD [address] [address] Kim Braun, PT [address] [place] [address] [email or web address] 11/28/2024 11:30 AM EDT Office Visit [address] [address] Brooke Pressley MD [address] [address] Kim Braun, PT [address] [place] [address] 05/10/2025 9:15 AM EDT Appointment [address] [place] [address] Jessy Andersen NP [address] [place] [address] documented as of this encounter Results * COVID-19 PCR Order (11/19/2020 10:06 AM EDT) COVID-19 Comment [id number] [facility] COVID Testing Status Sent to [facility] Other 11/19/2020 10:0 6 AM EDT 11/19/2020 5:03 PM EDT us Seth Jeter MD BODY FLUIDS AND STOOLS ORDER GABBI Final Result Performing Organization Address City/State/[facility] Co de Phone Number [address] [address] documented in this encounter Visit Diagnoses Diagnosis Encounter for laboratory testing for COVID-19 virus- Primary documented in this encounter Additional Health Concerns Infection Onset Date Last Indicated Resolved Time CoV-Risk 12/21/2021 12/21/2021 01/01/2022 1:22 AM EDT documented as of this encounter Care Teams Industrial Technician Relationship Specialty Start Date End Date Jacquelyn Chandler MD [address] [place] [address] [email or web address] PCP - General Internal Medicine 12/01/17 01/28/23 Jessy Andersen NP [address] [place] [address] 1 [place] [address] PCP - General Nurse Practitioner 01/29/23 documented as of this encounter Additional Source Comments The information contained in this document represents components of the legal health record. It is not the complete legal health record.[facility]
--- OUTSIDE RECORDS SUMMARY | 2024-11-02 11:17 | XMS_ITS | Encounter Summary ---
Author Organization [facility] Address [address] [place] [address] Phone Care Team Providers Care Environmental Health Safety Manager Name Role Phone Jacquelyn Chandler MD Primary Care Provider [phone] Jessy Andersen NP Primary Care Provider Encounter Details Date Type Department Care Team (Latest Contact Info) Description 03/08/2019 Transcribe Orders [address] [place] [address] Jacquelyn Chandler MD [address] [place] [address] Hyperlipidemia, unspecified hyperlipidemia type (Primary Dx) Social History Tobacco Use Types [...] Industry Job Start Date Job End Date [employer] in [employer] Not on file Not on file Not on file documented as of this encounter Plan of Treatment Upcoming Encounters Date Type Department Care Team (Late st Contact Info) Description 09/28/2024 Procedure Pass [address] [place] [address] 11/07/2024 11:30 AM EDT Office Visit [address] [address] Brooke Pressley MD [address] [address] Kim Braun, PT [address] [place] [address] 11/14/2024 11:30 AM EDT Office Visit [address] [address] Brooke Pressley MD [address] [address] Kim Braun, PT [address] [place] [address] 11/21/2024 11:30 AM EDT Office Visit [facility] [address] [place] [address] Brooke Pressley MD [address] [address] Kim Braun, PT [address] [place] [address] 11/28/2024 11:30 AM EDT Office Visit [address] [address] Brooke Pressley MD [address] [address] Kim Braun, PT [address] [place] [address] 05/10/2025 9:15 AM EDT Appointment [address] [place] [address] Jessy Andersen, AMBIKA [address] [place] [address] documented as of this encounter Results * (ABNORMAL) Lipid panel (03/08/2019 8:09 AM EST) HDL 44 mg/dL [facility] Comment: Interpretation <40 mg/dL: Low HDL cholesterol (major risk factor for CHD) Greater than or equal to 60 mg/dL: High HDL cholesterol ( negative risk factor for CHD) HDL - cholesterol is affected by a number of factors, e.g. smoking, excerise, hormones, sex and age. CHOLESTEROL 205 0 - 240 mg/dL [facility] TRIGLYCERIDES 220(H) 30 - 160 mg/dL [facility] LDL 117 50 - 129 mg/dL [facility] Comment: LDL levels in terms of risk for coronary heart disease: <100 mg/dL: Optimal 100-129 mg/dL: Near or above optimal 130-159 mg/dL: Borderline high 160-189 mg/dL: High >190 mg/dL: Very High CARDIAC RISK RATIO 4.7(H) 3.3 - 4.4 C [facility] Blood 03/08/2019 8:09 AM EST 03/08/2019 8:15 AM EST us Jacquelyn Chandler MD LAB BLOOD ORDERABLES Final R esult Performing Organization Address City/State/[facility] Co de Phone Number [address] [address] documented in this encounter Visit Diagnoses Diagnosis Hyperlipidemia, unspecified hyperlipidemia type- Primary documented in this encounter Additional Health Concerns Infection Onset Date Last Indicated Resolved Time CoV-Risk 12/21/2021 12/21/2021 01/01/2022 1:22 AM EDT documented as of this encounter Care Teams Environmental Health Safety Manager Relationship Specialty Start Date End Date Jacquelyn Chandler MD [address] [place] [address] PCP - General Internal Medicine 12/01/17 01/28/23 Jessy Andersen NP [address] [place] [address] PCP - General Nurse Practitioner 01/29/23 documented as of this encounter Additional Source Comments The information contained in this document represents components of the legal health record. It is not the complete legal health record.[facility]
--- OUTSIDE RECORDS SUMMARY | 2024-11-02 11:17 | XMS_ITS | Encounter Summary ---
Author Organization [facility] Address [address] [place] [address] Phone Care Team Providers Care Utilities Estimator And Drafter Name Role Phone Jacquelyn Chandler MD Primary Care Provider Jessy Andersen NP Primary Care Provider Encounter Details Date Type Department Care Team (Latest Contact Info) Description 10/09/2020 Transcribe Orders [facility] [address] [place] [address] Jacquelyn Chandler MD [address] [place] [address] [email or web address] Vitamin D deficiency, unspecified (Primary Dx); Hyperlipidemia, unspecified hyperlipidemia type Social History Tobacco Use Types Packs/Day Years [...] 09/28/2024 Procedure Pass [facility] - [address] [place] [address] 11/07/2024 11:30 AM EDT Office Visit [facility] [address] [place] [address] Brooke Pressley MD [address] [address] Kim Braun, PT [address] [place] [address] [email or web address] 11/14/2024 11:30 AM EDT Office Visit [address] [address] Brooke Pressley MD [address] [address] Kim Braun, PT [address] [place] [address] [email or web address] 11/21/2024 11:30 AM EDT Office Visit [facility] [address] [place] [address] Brooke Pressley MD [address] [address] Kim Braun, PT [address] [place] [address] [email or web address] 11/28/2024 11:30 AM EDT Office Visit [address] [address] Brooke Pressley MD [address] [address] Kim Braun, PT [address] [place] [address] [email or web address] 05/10/2025 9:15 AM EDT Appointment [facility] - [address] [place] [address] Jessy Andersen, AMBIKA [address] [place] [address] documented as of this encounter Results * (ABNORMAL) Lipid panel (10/09/2020 10:28 AM EDT) HDL 49 mg/dL [facility] Comment: Interpretation <40 mg/dL: Low HDL cholesterol (major risk factor for CHD) Greater than or equal to 60 mg/dL: High HDL cholesterol ( negative risk factor for CHD) HDL - cholesterol is affected by a number of factors, e.g. smoking, excerise, hormones, sex and age. CHOLESTEROL 182 0 - 240 mg/dL [facility] TRIGLYCERIDES 164(H) 30 - 160 mg/dL [facility] LDL 100 50 - 129 mg/dL [facility] Comment: LDL levels in terms of risk for coronary heart disease: <100 mg/dL: Optimal 100-129 mg/dL: Near or above optimal 130-159 mg/dL: Borderline high 160-189 mg/dL: High >190 mg/dL: Very High CARDIAC RISK RATIO 3.7 3.3 - 4.4 C [facility] Blood 10/09/2020 10:2 8 AM EDT 10/09/2020 10:32 AM EDT Jacquelyn Chandler MD LAB BLOOD ORDERABLES Final R esult [facility] [address] [place] [address] * (ABNORMAL) 25-OH vitamin D (10/09/2020 10:28 AM EDT) 25 OH VIT D (TOTAL) 28(L) 30 - 60 ng/mL [facility] Blood 10/09/2020 10:2 8 AM EDT 10/09/2020 10:32 AM EDT us Jacquelyn Chandler MD LAB BLOOD ORDERABLES Final R esult [facility] [address] [place] [address] documented in this encounter Visit Diagnoses Diagnosis Vitamin D deficiency, unspecified- Primary Hyperlipidemia, unspecified hyperlipidemia type documented in this encounter Additional Health Concerns Infection Onset Date Last Indicated Resolved Time CoV-Risk 12/21/2021 12/21/2021 01/01/2022 1:22 AM EDT documented as of this encounter Care Teams Utilities Estimator And Drafter Relationship Specialty Start Date End Date Jacquelyn Chandler MD [address] [place] [address] PCP - General Internal Medicine 12/01/17 01/28/23 Jessy Andersen NP [address] [place] [address] PCP - General Nurse Practitioner 01/29/23 documented as of this encounter Additional Source Comments The information contained in this document represents components of the legal health record. It is not the complete legal health record.[facility]
--- OUTSIDE RECORDS SUMMARY | 2024-11-02 11:17 | XMS_ITS | Encounter Summary ---
Author Organization [facility] Address [address] [place] [address] Phone Care Team Providers Care Learning And Development Administrator Name Role Phone Jacquelyn Chandler MD Primary Care Provider Jessy Andersen NP Primary Care Provider Encounter Details Date Type Department Care Team (Late st Contact Info) Description 09/17/2020 Procedure Pass [address] [place] [address] Social History Tobacco Use Types Packs/Day Years [...] st Contact Info) Description 09/28/2024 Procedure Pass [address] [place] [address] 11/07/2024 11:30 AM EDT Office Visit [address] [address] Brooke Pressley MD [address] [address] Kim Braun, PT [address] [place] [address] [email or web address] 11/14/2024 11:30 AM EDT Office Visit [facility] [address] [place] [address] Brooke Pressley MD [address] [address] Kim Braun, PT [address] [place] [address] [email or web address] 11/21/2024 11:30 AM EDT Office Visit [facility] [address] [place] [address] Brooke Pressley MD [address] [address] Kim Braun, PT [address] [place] [address] [email or web address] 11/28/2024 11:30 AM EDT Office Visit [address] [address] Brooke Pressley MD [address] [address] Kim Braun, PT [address] [place] [address] [email or web address] 05/10/2025 9:15 AM EDT [facility]ment [facility] [address] [place] [address] Jessy Andersen NP [address] [place] [address] documented as of this encounter Visit Diagnoses Not on filedocumented in this encounter Additional Health Concerns Infection Onset Date Last Indicated Resolved Time CoV-Risk 12/21/2021 12/21/2021 01/01/2022 1:22 AM EDT documented as of this encounter Care Teams Learning And Development Administrator Relationship Specialty Start Date End Date Jacquelyn Chandler MD [address] [place] [address] [email or web address] PCP - General Internal Medicine 12/01/17 01/28/23 Jessy Andersen NP [address] [place] [address] PCP - General Nurse Practitioner 01/29/23 documented as of this encounter Additional Source Comments The information contained in this document represents components of the legal health record. It is not the complete legal health record.[facility]
--- OUTSIDE RECORDS SUMMARY | 2024-11-02 11:17 | XMS_ITS | Encounter Summary ---
Author Organization [facility] Address [address] [place] [address] [place] [address] Phone Care Team Providers Care Director Of Cardiac Rehabilitation Name Role Phone Jacquelyn Chandler MD Primary Care Provider Jessy Andersen NP Primary Care Provider Encounter Details Date Type Department Care Team (Latest Contact Info) Description 11/06/2020 Transcribe Orders [address] [place] [address] Nat Tam, PA [address] [place] [address] Gastroesophageal reflux disease with esophagitis, unspecified whether hemorrhage (Primary Dx) Social History Tobacco Use Types [...] st Contact Info) Description 09/28/2024 Procedure Pass [facility] - [address] [place] [address] 11/07/2024 11:30 AM EDT Office Visit [address] [address] Brooke Pressley MD [address] [address] Kim Braun, PT 380 [place] [address] [email or web address] 11/14/2024 11:30 AM EDT Office Visit [address] [address] Brooke Pressley MD [address] [address] Kim Braun, PT 380 [place] [address] [email or web address] 11/21/2024 11:30 AM EDT Office Visit [address] [address] Brooke Pressley MD [address] [address] Kim Braun, PT 380 [place] [address] [email or web address] 11/28/2024 11:30 AM EDT Office Visit [address] [address] Brooke Pressley MD [address] [address] Kim Braun, PT 380 [place] [address] [email or web address] 05/10/2025 9:15 AM EDT Appointment [facility] - [address] [place] [address] Jessy Andersen, AMBIKA [address] [place] [address] documented as of this encounter Results * CBC and differential (11/06/2020 10:12 AM EDT) WBC 5.70 4.00 - 11.00 K/uL [facility] RBC 4.52 3.72 - 5.30 M/uL [facility] HGB 12.7 11.4 - 15.9 g/dL [facility] HCT 38.2 34.2 - 46.8 % [facility] PLT 268 140 - 430 K/uL [facility] MCV 84.5 78.0 - 97.0 fL [facility] MCH 28.1 25.0 - 33.0 pg [facility] MCHC 33.2 32.0 - 36.0 g/dL [facility] RDW 13.2 11.0 - 16.0 % [facility] MPV 11.6 8.4 - 12.8 fl [facility] NRBC 0.00 0 /100 WBCs [facility] ABSOLUTE NRBC 0.00 0 K/uL [facility] DIFF METHOD Auto [facility] NEUTS 53.7 43.0 - 75.0 % [facility] LYMPHS 36.7 18.2 - 47.4 % [facility] MONOS 6.7 4.00 - 11.00 % [facility] EOS 1.6 0.0 - 8.0 % [facility] BASOS 0.9 0.0 - 2.0 % [facility] Granulocytes, immature (%) 0.4 0.0 - 0.9 % [facility] ABSOLUTE NEUTS 3.07 1.80 - 7.70 K/uL [facility] ABSOLUTE LYMPHS 2.09 1.00 - 3.10 K/uL [facility] ABSOLUTE MONOS 0.38 0.20 - 0.80 K/uL [facility] ABSOLUTE EOS 0.09 0.00 - 0.80 K/uL [facility] ABSOLUTE BASOS 0.05 0.00 - 0.09 K/uL [facility] Granulocytes, immature 0.02 0.00 - 0.05 K/uL [facility] Blood 11/06/2020 10:1 2 AM EDT 11/06/2020 10:15 AM EDT us Nat GONZALEZ LAB BLOOD ORDERABLES Final Result Performing Organization Address City/State/[facility] Co de Phone Number [facility] [address] [place] [address] documented in this encounter Visit Diagnoses Diagnosis Gastroesophageal reflux disease with esophagitis, unspecified whether hemorrhage- Primary documented in this encounter Additional Health Concerns Infection Onset Date Last Indicated Resolved Time CoV-Risk 12/21/2021 12/21/2021 01/01/2022 1:22 AM EDT documented as of this encounter Care Teams Director Of Cardiac Rehabilitation Relationship Specialty Start Date End Date Jacquelyn Chandler MD [address] [place] [address] [email or web address] PCP - General Internal Medicine 12/01/17 01/28/23 Jessy Andersen NP [address] [place] [address] PCP - General Nurse Practitioner 01/29/23 documented as of this encounter Additional Source Comments The information contained in this document represents components of the legal health record. It is not the complete legal health record.[facility]
--- OUTSIDE RECORDS SUMMARY | 2024-11-02 11:17 | XMS_ITS | Encounter Summary ---
Author Organization [facility] Address [address] [place] [address] Phone Care Team Providers Care Ticker Wirer Name Role Phone Jacquelyn Chandler MD Primary Care Provider Jessy Andersen NP Primary Care Provider Encounter Details Date Type Department Care Team (Late st Contact Info) Description 04/02/2021 Transcribe Orders [facility] [address] [place] [address] Jacquelyn Chandler MD 25 [place] [address] [email or web address] Vitamin D deficiency, unspecified (Primary Dx); Encounter for blood typing Social History Tobacco Use Types Packs/Day Years [...] Contact Info) Description 09/28/2024 Procedure Pass [facility] - [address] [place] [address] 11/07/2024 11:30 AM EDT Office Visit [facility] Services [address] [place] [address] Brooke Pressley MD [address] [address] Kim Braun, PT 380 [place] [address] 11/14/2024 11:30 AM EDT Office Visit [address] [address] Brooke Pressley MD [address] [address] Kim Braun, PT 380 [place] [address] 11/21/2024 11:30 AM EDT Office Visit [address] [address] Brooke Pressley MD [address] [address] Kim Braun, PT 380 [place] [address] 11/28/2024 11:30 AM EDT Office Visit [address] [address] Brooke Pressley MD [address] [address] Kim Braun, PT [address] [place] [address] 05/10/2025 9:15 AM EDT Appointment [address] [place] [address] Jessy Andersen, [place] [address] documented as of this encounter Results * ABO and Rh (04/02/2021 9:42 AM EST) ABO/Rh A Positive [facility] Resulting Agency [facility] Blood 04/02/2021 9:42 AM EST 04/02/2021 9:45 AM EST us Jacquelyn Chandler MD BLOOD BANK TEST ORDERABLES F inal Result Performing Organization Address [facility]/ZIP Co de Phone Number [address] [address] * (ABNORMAL) 25-OH vitamin D (04/02/2021 9:42 AM EST) 25 [place] VIT D (TOTAL) 24(L) 30 - 60 ng/mL [facility] Blood 04/02/2021 9:42 AM EST 04/02/2021 9:45 AM EST us Jacquelyn Chandler MD LAB BLOOD ORDERABLES Final R esult Performing Organization Address City/[facility]/ZIP Co de Phone Number [address] [address] documented in this encounter Visit Diagnoses Diagnosis Vitamin D deficiency, unspecified- Primary Encounter for blood typing documented in this encounter Additional Health Concerns Infection Onset Date Last Indicated Resolved Time CoV-Risk 12/21/2021 12/21/2021 01/01/2022 1:22 AM EDT documented as of this encounter Care Teams Ticker Wirer Relationship Specialty Start Date End Date Jacquelyn Chandler MD [address] [place] [address] [email or web address] PCP - General Internal Medicine 12/01/17 01/28/23 Jessy Andersen NP [address] [place] [address] PCP - General Nurse Practitioner 01/29/23 documented as of this encounter Additional Source Comments The information contained in this document represents components of the legal health record. It is not the complete legal health record.[facility]
--- OUTSIDE RECORDS SUMMARY | 2024-11-02 11:17 | XMS_ITS | Encounter Summary ---
Author Organization [facility] Address [address] [facility] [address] [address] Phone Care Team Providers Care Tip Scourer Name Role Phone Jacquelyn Chandler MD Primary Care Provider Jessy Andersen NP Primary Care Provider Encounter Details Date Type Department Care Team (Late st Contact Info) Description 09/01/2022 Procedure Pass [facility], [address] [place] [address] Social History Tobacco Use Types Packs/Day Years Used Date Smoking Tobacco: Never Passive Smoke Exposure: Yes Smokeless Tobacco: Never Alcohol Use Standard Drinks/Week Comments Never 0 (1 standard drink = 0.6 oz pur e alcohol) Education Answer Date Recorded Are you interested in more education? Not on kristen e 06/27/2022 Are you concerned about learning? Not on file 06/27/2022 No 06/27/2022 No 06/27/2022 Digital Access Answer Date Recorded No 07/26/2022 No 07/26/2022 Reliable internet access at home? Not on file 07/26/2022 Device with a working camera? Not on file Intimate Partner Violence Answer Date R ecorded Are you denied basic needs s uch as food, clothing, or medical care? No 08/28/2022 In the past 12 months have y ou been in a relationship with a person who hurts, threatens, or tries to control you? No 08/28/2022 Are you denied basic needs s uch as food, clothing, or medical care? No 08/28/2022 In the past 12 months have y ou been in a relationship with a person who hurts, threatens, or tries to control you? No 08/28/2022 Comments No Sex and Gender Information Value [...] st Contact Info) Description 09/28/2024 Procedure Pass [address] [place] [address] 11/07/2024 11:30 AM EDT Office Visit [facility] [address] [place] [address] Brooke Pressley MD [address] [address] Kim Braun, PT 380 [place] [address] 11/14/2024 11:30 AM EDT Office Visit [address] [address] Brooke Pressley MD [address] [address] Kim Braun, PT 380 [place] [address] [email or web address] 11/21/2024 11:30 AM EDT Office Visit [address] [address] Brooke Pressley MD [address] [address] Kim Braun, PT 380 [place] [address] 11/28/2024 11:30 AM EDT Office Visit [facility] [address] [place] [address] Brooke Pressley MD [address] [address] Kim Braun, PT 380 [place] [address] 05/10/2025 9:15 AM EDT Appointment [address] [place] [address] Jessy Andersen NP 73 [place] [address] documented as of this encounter Visit Diagnoses Not on filedocumented in this encounter Additional Health Concerns Assessment Noted Time PHQ-2 Depression Total Score: 0 09/02/19 10:16 AM EDT documented as of this encounter Care Teams Tip Scourer Relationship Specialty Start Date End Date Jacquelyn Chandler MD [address] [place] [address] PCP - General Internal Medicine 12/01/17 01/28/23 Jessy Andersen NP [address] [place] [address] PCP - General Nurse Practitioner 01/29/23 documented as of this encounter Additional Source Comments The information contained in this document represents components of the legal health record. It is not the complete legal health record.[facility]
--- OUTSIDE RECORDS SUMMARY | 2024-11-02 11:17 | XMS_ITS | Encounter Summary ---
Author Organization [facility] Address [address] [facility] [address] [place] [address] Phone Care Team Providers Care Fusing Machine Tender Name Role Phone Jessy Andersen TURKEY PICKER Primary Care Provider Encounter Details Date Type Department Care Team (Late st Contact Info) Description 09/22/2024 Transcribe Orders Virtual Department 30 [place] [address] Jessy Andersen NP [address] [place] [address] Nausea and vomiting, unspecified vomiting type (Primary Dx) Social History Tobacco Use [...] st Contact Info) Description 09/28/2024 Procedure Pass [facility] - [address] [place] [address] 11/07/2024 11:30 AM EDT Office Visit [facility] [address] [place] [address] Brooke Pressley MD [address] [address] Kim Braun, PT 380 [place] [address] [email or web address] 11/14/2024 11:30 AM EDT Office Visit [facility] [address] [place] [address] Brooke Pressley MD [address] [address] Kim Braun, PT 380 [place] [address] [email or web address] 11/21/2024 11:30 AM EDT Office Visit [address] [address] Brooke Pressley MD [address] [address] Kim Braun, PT 380 [place] [address] 11/28/2024 11:30 AM EDT Office Visit [facility] 380 [place] [address] Brooke Pressley MD [address] [address] Kim Braun, PT 380 [place] [address] 05/10/2025 9:15 AM EDT Appointment [facility] - [address] [place] [address] Jessy Andersen, TURKEY PICKER 73 [place] [address] documented as of this encounter Results * US ABDOMEN LIMITED RIGHT UPPER QUADRANT (10/03/2024 10:12 AM EDT) Anatomical Region Laterality Modality Abdomen Ultrasound 10/03/2024 10:5 5 AM EDT Impressions 10/03/2024 11:14 AM EDT 1. Mild diffuse increased echogenicity of the liver parenchyma, compatible with hepatocellular disease. This is most commonly seen with fatty liver. 2. Mild fullness of the right renal collecting system, as before. No overt hydronephrosis. No sonographically evident renal calculi. Narrative 10/03/2024 11:14 AM EDT US ABDOMEN LIMITED RIGHT UPPER QUADRANT Referring clinician's provided indication for this examination in Epic: Outside Radiology Order; Nausea/vomiting; EPIGASTRIC PAIN TECHNIQUE: US Abdominal limited right upper quadrant. COMPARISON: US KIDNEYS AND BLADDER FINDINGS: Liver: There is mild diffuse increased echogenicity of the liver parenchyma. No focal lesions. Main Portal Vein: Patent with normal direction of flow. Gallbladder: No gallstones or gallbladder wall thickening. Raygoza's Sign: Negative. Biliary: No intrahepatic or extrahepatic biliary ductal dilatation. The common bile duct measures 4 mm. Right Kidney: The right kidney measures 10.2 cm in length. No sonographically evident renal calculi. Mild fullness of the right renal collecting system. No overt hydronephrosis. Procedure Note Lizet Napoles MD - 10/03/2024 US ABDOMEN LIMITED RIGHT UPPER QUADRANT Referring clinician's provided indication for this examination in Epic:Outside Radiology Order; Nausea/vomiting; EPIGASTRIC PAIN TECHNIQUE: US Abdominal limited right upper quadrant. COMPARISON: US KIDNEYS AND BLADDER FINDINGS: Liver: There is mild diffuse increased echogenicity of the liverparenchyma. No focal lesions. Main Portal Vein: Patent with normal direction of flow. Gallbladder: No gallstones or gallbladder wall thickening. Raygoza's Sign: Negative. Biliary: No intrahepatic or extrahepatic biliary ductal dilatation. The common bile duct measures 4 mm. Right Kidney: The right kidney measures 10.2 cm in length. No sonographically evident renal calculi. Mild fullness of the right renalcollecting system. No overt hydronephrosis. IMPRESSION: 1. Mild diffuse increased echogenicity of the liver parenchyma,compatible with hepatocellular disease. This is most commonly seen withfatty liver. 2. Mild fullness of the right renal collecting system, as before. Noovert hydronephrosis. No sonographically evident renal calculi. Jessy Andersen NP IMG US ABDOMEN Final Result documented in this encounter Visit Diagnoses Diagnosis Nausea and vomiting, unspecified vomiting type- Primary Nausea and vomiting, unspecified vomiting type documented in this encounter Additional Health Concerns Assessment Noted Time PHQ-2 Depression Total Score: 0 09/02/19 10:16 AM EDT documented as of this encounter Care Teams Fusing Machine Tender Relationship Specialty Start Date End Date Jessy Andersen NP PCP - General Nurse Practitioner 01/29/23 documented as of this encounter Additional Source Comments The information contained in this document represents components of the legal health record. It is not the complete legal health record.[facility]
--- OUTSIDE RECORDS SUMMARY | 2024-11-02 11:18 | XMS_ITS | Encounter Summary ---
Author Organization [facility] Address [address] [facility] [address] [place] [address] Phone Care Team Providers Care Windows Vmware Administrator Name Role Phone Jacquelyn Chandler MD Primary Care Provider [phone] Jessy Andersen NP Primary Care Provider Encounter Details Date Type Department Care Team (Late st Contact Info) Description 08/28/2022 Procedure Pass [facility] - [address] [address] Social History Tobacco Use Types Packs/Day Years [...] on file documented as of this encounter Functional Status * Calculated C-SSRS Risk Score (Lifetime/Recent) Answer Date of Assessment Author No Risk Indicated 08/28/2022 9:58 PM EDT Zarina Noriega RN * [place] Suicide Severity Rating Scale (Screener/Recent Self-Report) Question Answer Date of Assessment Author 1. Wish to be (Past 1 Month) No 023 9:58 PM EDT Zarina Noriega RN 2. Non-Specific Active Suici cricket Thoughts (Past 1 Month) No 08/28/2022 9:58 PM EDT Letitia Noriega RN 6. Suicidal Behavior (Lifetime) No 3 9:58 PM EDT Zarina Noriega RN documented as of this encounter Plan of Treatment Upcoming Encounters Date Type Department Care Team (Late st Contact Info) Description 09/28/2024 Procedure Pass [facility] - [address] [place] [address] 11/07/2024 11:30 AM EDT Office Visit [facility] [address] [place] [address] Brooke Pressley MD 299 [facility] [address] [place] [address] Kim Braun, PT 380 [place] [address] 11/14/2024 11:30 AM EDT Office Visit [address] [address] Brooke Pressley MD [address] [address] Kim Braun, PT 380 [place] [address] [email or web address] 11/21/2024 11:30 AM EDT Office Visit [facility] [address] [place] [address] Brooke Pressley MD [address] [address] Kim Braun, PT 380 [place] [address] [email or web address] 11/28/2024 11:30 AM EDT Office Visit [address] [address] Brooke Pressley MD [address] [address] Kim Braun, PT 380 [place] [address] [email or web address] 05/10/2025 9:15 AM EDT Appointment [facility] - [address] [place] [address] Jessy Andersen NP [address] [place] [address] documented as of this encounter Visit Diagnoses Not on filedocumented in this encounter Additional Health Concerns Assessment Noted Time PHQ-2 Depression Total Score: 0 07/30/19 10:09 AM EDT documented as of this encounter Care Teams Windows Vmware Administrator Relationship Specialty Start Date End Date Jacquelyn Chandler MD [address] [place] [address] [email or web address] PCP - General Internal Medicine 12/01/17 01/28/23 Jessy Andersen NP [address] [place] [address] PCP - General Nurse Practitioner 01/29/23 documented as of this encounter Additional Source Comments The information contained in this document represents components of the legal health record. It is not the complete legal health record.[facility]
--- OUTSIDE RECORDS SUMMARY | 2024-11-02 11:18 | XMS_ITS | Encounter Summary ---
Author Organization [facility] Address [address] [address] Phone Care Team Providers Care Crystal Syrup Maker Name Role Phone Jacquelyn Chandler MD Primary Care Provider Jessy Andersen NP Primary Care Provider Encounter Details Date Type Department Care Team (Late st Contact Info) Description 09/22/2022 Procedure Pass [facility] [address] [place] [address] Social History Tobacco Use Types Packs/Day Years [...] st Contact Info) Description 09/28/2024 Procedure Pass [address] [place] [address] 11/07/2024 11:30 AM EDT Office Visit [facility] [address] [place] [address] Brooke Pressley MD [address] [address] Kim Braun, PT 380 [place] [address] 11/14/2024 11:30 AM EDT Office Visit [facility] [address] [place] [address] Brooke Pressley MD [address] [address] Kim Braun, PT 380 [place] [address] 11/21/2024 11:30 AM EDT Office Visit [address] [address] Brooke Pressley MD [address] [address] Kim Braun, PT 380 [facility] [place] [address] 11/28/2024 11:30 AM EDT Office Visit [facility] [address] [place] [address] Brooke Pressley MD 299 [facility] [address] [place] [address] Kim Braun, PT 380 [place] [address] 05/10/2025 9:15 AM EDT Appointment [facility] - [address] [place] [address] [facility] [address] [place] [address] documented as of this encounter Visit Diagnoses Not on filedocumented in this encounter Additional Health Concerns Assessment Noted Time PHQ-2 Depression Total Score: 0 09/02/19 10:16 AM EDT documented as of this encounter Care Teams Crystal Syrup Maker Relationship Specialty Start Date End Date Jacquelyn Chandler MD [address] [place] [address] PCP - General Internal Medicine 12/01/17 01/28/23 Jessy Andersen NP [address] [place] [address] PCP - General Nurse Practitioner 01/29/23 documented as of this encounter Additional Source Comments The information contained in this document represents components of the legal health record. It is not the complete legal health record.[facility]
--- OUTSIDE RECORDS SUMMARY | 2024-11-02 11:18 | XMS_ITS | Encounter Summary ---
Author Organization [facility] Address [address] [place] [address] Phone Care Team Providers Care Aircraft Navigator Name Role Phone Jacquelyn Chandler MD Primary Care Provider [phone] Jessy Andersen NP Primary Care Provider Reason for Referral * Outpatient Procedure - Closed Specialty Diagnoses / Procedures Referred By Gabriele canales Referred To Contact Radiology Diagnoses TIA (transient ischemic attack) Procedures Adult Echo TTE Taqueria Aj MD [address] [place] [address], [address] [place] [address] Phone: tel: fax: [email or web address] Referral ID Status Reason Start Date Expiration Date Visits Re quested Visits Authorized [id number] Closed 09/22/2022 1 1 Encounter Details Date Type Department Care Team (Latest Contact Info) Description 09/22/2022 Transcribe Orders Virtual Department 30 [place] [address] Taqueria Aj MD [address] [place] [address], [address] [place] [phone] [email or web address] TIA (transient ischemic attack) (Primary Dx) Social History Tobacco Use Types [...] st Contact Info) Description 09/28/2024 Procedure Pass [facility] - [address] [place] [address] 11/07/2024 11:30 AM EDT Office Visit [facility] [address] [place] [address] Brooke Pressley MD 299 [facility] [address] [place] [address] Kim Braun, PT 380 [place] [address] 11/14/2024 11:30 AM EDT Office Visit [address] [address] Brooke Pressley MD [address] [address] Kim Braun, PT 380 [place] [address] 11/21/2024 11:30 AM EDT Office Visit [address] [address] Brooke Pressley MD [address] [address] Kim Braun, PT 380 [place] [address] 11/28/2024 11:30 AM EDT Office Visit [address] [address] Brooke Pressley MD [address] [address] Kim Braun, PT 380 [place] [address] 05/10/2025 9:15 AM EDT Appointment [facility] - [address] [place] [address] Jessy Andersen, AMBIKA [address] [place] [address] documented as of this encounter Results * TTE COMPREHENSIVE (11/12/2022 9:31 AM EDT) Body Surface Area 1.81 m2 Height 163 cm Weight 76 kg Systolic BP 110 mmHg Diastolic BP 60 mmHg Left Atrium Dimension Anterior-Posterior 34 15 - 40 mm Aortic Valve Mean Gradient 3 mmHg Aortic Valve Time Velocity Integral 243 mm Aortic Valve Peak Velocity 118.0 cm/s Aortic Valve Peak Gradient 6 mmHg Aortic Sinus Diameter 25 mm Ascending Aorta Diameter 25 mm Inferior Vena Cava Diameter 15 0.0 - 21 mm Interventricular Septum Thickness 11 mm Left Ventricle Internal Diameter End Diastole 43 37 - 52 mm Left Ventricle Internal Diameter End Systole 26 22 - 35 mm Left Ventricular Outflow Tract Diameter 20.0 mm LVOT VTI REST 180 mm Left Ventricular Outflow Tract Velocity 0.9 m/s Left Ventricular Outflow Tract Gradient at Rest 4 mmHg Left Ventricular Posterior Wall Thickness 10 mm Ejection Fraction 70 50 - 75 Percent Mitral Valve A Wave Speed 77.1 cm/s Mitral Valve E Wave Speed 60.0 cm/s Right Ventricle Basal Diameter 24.6 25 - 41 mm Tricuspid Valve Peak Velocity 2.2 m/s Raw LV EF% 63 % Right Ventricle to Right Atrium Pressure Gradient 19 mmHg Aortic Valve Sinus Index 1 14 19 - 27 mm Ascending Aorta Diameter 14 mm Aortic Sinus Index 14 mm Ascending Aorta Index 14 mm Left Atrial Volume 22 mL Left Atrial Volume Index 12.15 mL/m2 Right Ventricle Peak Systolic Pressure 22 mmHg Right Atrium Pressure Estimated 3 mmHg Anatomical Region Laterality Modality Heart Ultrasound Narrative 11/12/2022 10:37 AM EDT Patient was imaged her normal sinus rhythm. The estimated ejection fraction is hyperdynamic at 75% unchanged from her prior echocardiogram. There is no evidence of significant aortic valve disease there is mild mitral regurgitation the PA pressure is normal and there is no pericardial effusion there is no prior echo available for comparison Left Ventricle Left ventricular cavity size is normal and the left ventricular wall thickness is increased. E/A 0.8; Lat E' 10.8cm/s; Med E' 7.72cm/s; E/E' 6.5 There is mild concentric left ventricular hypertrophy. Left ventricular systolic function is normal. There are no segmental left ventricular wall motion abnormalities noted. The estimated ejection fraction is 70% (Normal 50-75%). The left ventricular ejection fraction was measured by the single dimension method. Left ventricular diastolic function appears within normal limits for age. Right Ventricle The right ventricular size is normal. TAPSE 2.50cm; RV S 11.3cm/s The right ventricular systolic function is normal. Left Atrium The left atrium is normal in size. The left atrial anterior-posterior dimension measures 34 mm (normal 15-40 mm). The LA volume index is 12.15 mL/m2 (normal indexed value is 16-34 mL/m2). Right Atrium The right atrium is normal in size. The IVC is normal in size (2.1cm or less). The IVC demonstrates normal collapse with inspiration which is consistent with normal RA pressure. Mitral Valve The mitral valve appears normal. There is no evidence of mitral stenosis. There is trace to mild mitral regurgitation detected by spectral and color Doppler. Tricuspid Valve The tricuspid valve appears normal. There is evidence of trace to mild tricuspid regurgitation by color and spectral Doppler. The RV systolic pressure was estimated from the peak TV regurgitant velocity. The estimated RV systolic pressure is 22 mmHg assuming a right atrial pressure of 3 mmHg. Aortic Valve The aortic valve is tricuspid. There is no evidence of valvular aortic stenosis. There is evidence of trace aortic regurgitation by color and spectral Doppler. The visualized portions of the thoracic aorta appear normal. Pulmonic Valve The pulmonary valve appears normal. There is evidence of trace pulmonary regurgitation by color and spectral Doppler. Pericardium There is no evidence of pericardial effusion. Interatrial Septum There is no evidence of an atrial septal defect. General Findings The image quality was good (2). Technique(s) used in the evaluation: Color flow Doppler and Spectral Doppler. The predominant rhythm during the study was sinus. Comparison Findings No prior studies for comparison. us Taqueria Aj MD CV ECHO ORDERABLES Final Res ult documented in this encounter Visit Diagnoses Diagnosis TIA (transient ischemic attack)- Primary Unspecified transient cerebral ischemia TIA (transient ischemic attack) Unspecified transient cerebral ischemia documented in this encounter Additional Health Concerns Assessment Noted Time PHQ-2 Depression Total Score: 0 09/02/19 23 10:16 AM EDT documented as of this encounter Care Teams Aircraft Navigator Relationship Specialty Start Date End Date Jacquelyn Chandler MD [address] [place] [address] [email or web address] PCP - General Internal Medicine 12/01/17 01/28/23 [place], [place] AMBIKA Mary [address] [place] [address] PCP - General Nurse Practitioner 01/29/23 documented as of this encounter Additional Source Comments The information contained in this document represents components of the legal health record. It is not the complete legal health record.[facility]
--- OUTSIDE RECORDS SUMMARY | 2024-11-02 11:18 | XMS_ITS | Clinical Summary ---
Author Organization [employer] Address [address] [facility] 7t [place] [address] Care Team Providers Care Ordained Minister Name Role Phone Nathaly Jessy AUSTIN Primary Care Provider [phone] Allergies Active Allergy Reactions Criticality Noted Date [...] TO 4 TIMES DAILY NEEDED 024 Active Aspirin Low Dose 81 MG EC tabletIndications :TIA (transient ischemic attack),Atheroscl erosis of [place] coronary artery of [place] heart without angina pectoris TAKE 1 TABLET (81 MG) BY MOUTH IN THE MORNING 90 tablet 3 09/27/2 024 Active ipratropium-albut thierno (Duo-Neb) 0.5-2.5 mg/3 [...] as needed (asthma). 1 each 025 Active fluticasone (Flonase) 50 MCG/ACT nasal spray ADMINISTER 1 SPRAY INTO EACH NOSTRIL ONCE PER DAY. SHAKE GENTLY. CLEAN TIP AND REPLACE CAP. 48 mL 1 025 Active atorvastatin (Lipitor) 20 MG tabletIndications :Hyperlipidemia, unspecified hyperlipidemia type TAKE 1 TABLET BY MOUTH AT BEDTIME 90 tablet 3 025 Active nabumetone (Relafen) 500 MG tabletIndications :Fibromyalgia TAKE 1 TABLET (500 MG) BY MOUTH ONCE PER DAY. TAKE WITH FOOD 90 tablet 025 Active nabumetone (Relafen) 500 MG tabletIndications :Fibromyalgia TAKE 1 TABLET (500 MG) BY MOUTH ONCE PER DAY. TAKE WITH FOOD 90 tablet 025 2024 Discontinued Active Problems Problem Noted Date Diagnosed Date Hepatic steatosis 10/03/2024 Fibromyalgia 12/23/2023 Elevated rheumatoid factor 12/23/2023 Primary osteoarthritis of both hips 09/17/2023 Chronic bilateral low back pain without sciatica 09/17/2023 Gastroesophageal reflux dise ase with esophagitis without hemorrhage 09/17/2023 TIA (transient ischemic attack) 11/11/2022 Mild persistent asthma without complication 04/2021 Atherosclerosis of coronary artery of [place] hea rt 08/01/2021 Hyperlipidemia 08/01/2021 Overview (11/10/2022): Last Assessment & Plan: Controlled on meds Degenerative disc disease, lumbar 01/21/2019 Primary osteoarthritis of both knees 01/21/2019 Resolved Problems Problem Noted Date Diagnosed Date Resolved Date Palpitations 08/01/2021 11/11/2022 Overview (11/10/2022): Last Assessment & Plan: Unclear etiology Patient currently being evaluated by Cardiology for this Encounters Date Type Department Care Team Description 10/17/[address] [place] [address] [place], [place], DIRECTOR MACHINE Fibromyalgia 10/10/2024 [address] [address] [place], [place], [facility] Results 10/05/2024 Results Follow-[place] [address] [place] [address] [place], [place], [place] [facility] XR bone density w SPECT lumbar 10/03/2024 Results Follow-Up [address] [place] [address] [place], [place], [facility] Abdomen Limited, Helicobacter pylori, Urea Breath Test [id number] 10/03/[address] [place] [address] [place], [place], [place] [facility] Results 09/22/2024 11:40 AM EDT Office [place] [address] [place] [address] [place], [place], [place] [facility] Cognitive impairment (Primary Dx); Snoring; Gait instability; Epigastric pain; History of Helicobacter pylori infection; Nausea and vomiting, unspecified vomiting type; Gastroesophageal reflux disease, unspecified whether esophagitis present 09/01/2024 Orders Only [facility] Information Management [address] [place] [address] [place], [place], DIRECTOR MACHINE 08/31/[address] [place] [address] [place], [place], [place] [facility] Hyperlipidemia, unspecified hyperlipidemia type 08/08/2024 Results Follow-Up [facility] [address] [place], [place] [address] Jessy Andersen, GEOVANNA MR Brain w/o Contrast from Last 3 Months Immunizations Immunization Administration [...] Sign Reading Time Taken Comments Blood Pressure 132/76 09/22/2024 11:50 AM EDT Pulse 77 09/22/2024 11:50 AM EDT Temperature 37.1 C (98.7 F) 09/22/2024 11:50 AM EDT Respiratory Rate 18 11/10/2022 2:48 PM EDT Oxygen Saturation 96% 06/22/2024 10:05 AM EDT Inhaled Oxygen Concentration - - Weight 74.8 kg (165 lb) 09/22/2024 11:50 AM EDT Height 162.6 cm (5' 4 ) 06/22/2024 10:05 AM EDT Body Mass Index 28.32 06/22/2024 10:05 AM EDT Plan of Treatment Upcoming Encounters Date Type Department Care Team (Late st Contact Info) Description 12/22/2024 11:40 AM EDT Office Visit [facility] 70 [place] [address] [facility] 70 [place] [address] Health Maintenance Due Date Last Done Comments CT Colonography 1956 Dental Oral Exam 1956 Dental Prophylaxis 1956 Dental X-Ray: Bitewings 1956 Dental X-Ray: Full Mouth 1956 FIT DNA/Cologuard 1956 FIT 1956 FOBT 1956 Sigmoidoscopy 1956 Alcohol/Substance Use Screening 1968 Hepatitis C Screening 1974 Hepatitis A Vaccines (1 of 2 - Risk 2-dose series) 10/20/1975 Pneumococcal Vaccine: 50+ Years (1 of 2 - PCV) 10/20/1975 Zoster Vaccines (1 of 2) 2006 Hepatitis B Vaccines (1 of 3 - Risk 3-dose series) 2016 RSV Patients and Patients Aged 60 years or older (1 - Risk 60-74 years 1-dose series) 2016 COVID-19 Vaccine (4 - 2024-25 season) 2023 02/05/2021, 07/02/2020, 06/11/2020 DTaP/Tdap/Td Vaccines (2 - Td or Tdap) 10/12/2024 10/12/2014 Influenza Vaccine (#1) 2024 10/29/2015, 2014 Mammogram 02/03/2025 02/03/2023, 06/2022, 02/03/2023, Additional history exists Depression Screening 06/22/2025 06/22/2024, 06/23/19 25 SDOH Screening 06/22/2025 06/22/2024 Tobacco Screening 09/22/2025 09/22/2024 Colonoscopy 08/12/2028 08/12/2018 Colorectal Cancer Screening 08/12/2028 Lipid Panel 12/15/2028 12/16/2023, 10/2023, 04/09/2023, Additional history exists HIB Vaccines [...] Procedure Name Priority Date/Time Associated Diagnosis Comments HELICOBACTER PYLORI, UREA BREATH TEST Routine 10/04/2024 Gastroesophageal reflux disease, unspecified whether esophagitis present Nausea and vomiting, unspecified vomiting type XR BONE DENSITY WITH SPECT LUMBAR Routine 10/04/2024 Screening for osteoporosis US ABDOMEN LIMITED Routine 10/03/2024 Gastroesophageal reflux disease, unspecified whether esophagitis present Nausea and vomiting, unspecified vomiting type COMPREHENSIVE METABOLIC PANEL Routine 08/29/2024 11:29 AM EDT AMB REFERRAL TO NEUROLOGY Routine 08/29/2024 Memory problem Balance problem Tremor LIPID PANEL, STANDARD Routine 12/16/2023 Hyperlipidemia, unspecified hyperlipidemia type HM MAMMOGRAPHY Routine 02/03/2023 HM COLONOSCOPY Routine 08/12/2018 from Last 3 Months or Most Recently Relevant to Health Maintenance Results * XR bone density w SPECT lumbar (10/04/2024) Anatomical Region Laterality Modality L-spine N/A Radiographic Yolie ging Result [facility] DXA PROCEDURES Final Result * Helicobacter pylori, Urea Breath Test [id number] (10/04/2024) Breath (Breath) Result [facility] LAB BODY FLUIDS AND STOOL S ORDERABLES Final Result Performing Organization Address [facility] Co de Phone Number EXTERNAL LAB * US Abdomen Limited (10/03/2024) Anatomical Region Laterality Modality Abdomen Ultrasound [facility] IMG US PROCEDURES Final R esult * Comprehensive Metabolic Panel (08/29/2024 11:29 AM EDT) Blood Venous blood specimen / Unknown Result [facility] LAB BLOOD ORDERABLES Ana l Result * Referral to Neurology (08/29/2024) Result [facility] OUTPATIENT REFERRAL ORDER GABBI Final Result * Lipid Panel, Standard (12/16/2023) Blood Venous blood specimen / Unknown Result [facility] LAB BLOOD ORDERABLES Ana l Result Performing Organization Address [facility]/ZIP Co de Phone Number EXTERNAL LAB * Hm Mammography (02/03/2023) Anatomical Region Laterality Modality Other Result [facility] HEALTH MAINTENANCE Edited Result - Final * Hm Colonoscopy (08/12/2018) Colonoscopy Normal Normal [facility] HEALTH MAINTENANCE Final Result from Last 3 Months or Most Recently Relevant to Health Maintenance Insurance [facility] [place] [address] [facility] STANDARD Care Teams Ordained Minister Relationship Specialty Start Date End Date [facility] [address] [facility] [place] [address] PCP - General Family Medicine 10/01/22
--- OUTSIDE RECORDS SUMMARY | 2024-11-02 11:18 | XMS_ITS | Encounter Summary ---
Author Organization [facility] Address [address] [place] [address] Phone Care Team Providers Care Probation And Parole Officer Name Role Phone Jacquelyn Chandler MD Primary Care Provider Jessy Andersen NP Primary Care Provider Encounter Details Date Type Department Care Team (Late st Contact Info) Description 09/12/2020 Procedure Pass [facility] Echo Lab [address] [place] [address] Social History Tobacco Use Types Packs/Day Years [...] (Late Contact Info) Description 09/28/2024 Procedure Pass [address] [place] [address] 11/07/2024 11:30 AM EDT Office Visit [facility] [address] [place] [address] Brooke Pressley MD [address] [address] Kim Braun, PT 380 [place] [address] 11/14/2024 11:30 AM EDT Office Visit [facility] [address] [place] [address] Brooke Pressley MD [address] [address] Kim Braun, PT 380 [place] [address] 11/21/2024 11:30 AM EDT Office Visit [address] [address] Brooke Pressley MD [address] [address] Kim Braun, PT 380 [place] [address] 11/28/2024 11:30 AM EDT Office Visit [address] [address] Brooke Pressley MD [address] [address] Kim Braun, PT 380 [place] [address] 05/10/2025 9:15 AM EDT Appointment [facility] - [address] [place] [address] Jessy Andersen, AMBIKA [address] [place] [address] documented as of this encounter Visit Diagnoses Not on filedocumented in this encounter Additional Health Concerns Infection Onset Date Last Indicated Resolved Time CoV-Risk 12/21/2021 12/21/2021 01/01/2022 1:22 AM EDT documented as of this encounter Care Teams Probation And Parole Officer Relationship Specialty Start Date End Date Jacquelyn Chandler MD [address] [place] [address] [email or web address] PCP - General Internal Medicine 12/01/17 01/28/23 Jessy Andersen NP [address] [place] [address] PCP - General Nurse Practitioner 01/29/23 documented as of this encounter Additional Source Comments The information contained in this document represents components of the legal health record. It is not the complete legal health record.[facility]
--- OUTSIDE RECORDS SUMMARY | 2024-11-02 11:18 | XMS_ITS | Encounter Summary ---
Author Organization [employer] Address [address] [place] [address] 7t [place] [address] Care Team Providers Care Ticket Attendant Name Role Phone [facility] Primary Care Provider [phone] Encounter Details Date Type Department Care Team (Late st Contact Info) Description 08/12/2023 Orders Only Ger[facility] [address] [place] [address] [place], [place] [facility] 70 [place] [address] Rheumatoid arthritis with positive rheumatoid factor, involving unspecified site ([facility]) Social History Tobacco Use Types Packs/Day Years [...] 12/22/2024 11:40 AM EDT Office Visit [facility] [address] [place] [address] [facility] 70 [place] [address] documented as of this encounter Procedures Procedure Name Priority Date/Time Associated Diagnosis Comments AMB REFERRAL TO RHEUMATOLOGY Routine 05/29/2023 Rheumatoid arthritis with positive rheumatoid factor, involving unspecified site ([facility]) documented in this encounter Results * Referral to Rheumatology (05/29/2023) [facility] OUTPATIENT REFERRAL ORDER GABBI Final Result documented in this encounter Visit Diagnoses Diagnosis Rheumatoid arthritis with positive rheumatoid factor, involving unspecified site ([facility]) documented in this encounter Care Teams Ticket Attendant Relationship Specialty Start Date End Date [facility] [address] [place] [address] PCP - General Family Medicine 10/01/22 documented as of this encounter
--- OUTSIDE RECORDS SUMMARY | 2024-11-02 11:19 | XMS_ITS | Encounter Summary ---
Author Organization [facility] Address [address] [place] [address] Phone Care Team Providers Care Marquetry Worker Name Role Phone Jacquelyn Chandler MD Primary Care Provider Jessy Andersen NP Primary Care Provider Encounter Details Date Type Department Care Team (Late st Contact Info) Description 08/01/2021 Procedure Pass [address] [place] [address] Social History Tobacco Use Types Packs/Day Years [...] st Contact Info) Description 09/28/2024 Procedure Pass [address] [place] [address] 11/07/2024 11:30 AM EDT Office Visit [address] [address] Brooke Pressley MD [address] [address] Kim Braun, PT 380 [place] [address] [email or web address] 11/14/2024 11:30 AM EDT Office Visit [facility] [address] [place] [address] Brooke Prsesley MD [address] [address] Kim Braun, PT [address] [place] [address] [email or web address] 11/21/2024 11:30 AM EDT Office Visit [facility] [address] [place] [address] Brooke Pressley MD [address] [address] Kim Braun, PT [address] [place] [address] [email or web address] 11/28/2024 11:30 AM EDT Office Visit [address] [address] Brooke Pressley MD [address] [address] Kim Braun, PT [address] [place] [address] [email or web address] 05/10/2025 9:15 AM EDT [facility]ment [facility] [address] [place] [address] Jessy Andersen NP [address] [place] [address] documented as of this encounter Visit Diagnoses Not on filedocumented in this encounter Additional Health Concerns Infection Onset Date Last Indicated Resolved Time CoV-Risk 12/21/2021 12/21/2021 01/01/2022 1:22 AM EDT Assessment Noted Time PHQ-2 Depression Total Score: 0 07/30/19 10:09 AM EDT documented as of this encounter Care Teams Marquetry Worker Relationship Specialty Start Date End Date Jacquelyn Chandler MD [address] [place] [address] PCP - General Internal Medicine 12/01/17 01/28/23 Jessy Andersen NP [address] [place] [address] PCP - General Nurse Practitioner 01/29/23 documented as of this encounter Additional Source Comments The information contained in this document represents components of the legal health record. It is not the complete legal health record.[facility]
--- OUTSIDE RECORDS SUMMARY | 2024-11-02 11:19 | XMS_ITS | Encounter Summary ---
Author Organization [facility] Address [address] [place] [address] Phone Care Team Providers Care Junior Electrical Engineer Name Role Phone Jessy Andersen MACHINE I COREMAKER Primary Care Provider Encounter Details Date Type Department Care Team (Late st Contact Info) Description 03/20/2023 Transcribe Orders Virtual Department 30 [place] [address] Jessy Andersen NP [address] [place] [address] Rheumatoid arthritis with positive rheumatoid factor, involving unspecified site (Primary Dx); Chronic pain of both knees Social History Tobacco Use Types Packs/Day Years [...] st Contact Info) Description 09/28/2024 Procedure Pass [facility] - [address] [place] [address] 11/07/2024 11:30 AM EDT Office Visit [facility] [address] [place] [address] Brooke Pressley MD [address] [address] Kim Braun, PT 380 [place] [address] 11/14/2024 11:30 AM EDT Office Visit [facility] [address] [place] [address] Brooke Pressley MD [address] [address] Kim Braun, PT 380 [place] [address] [email or web address] 11/21/2024 11:30 AM EDT Office Visit [address] [address] Brooke Pressley MD [address] [address] Kim Braun, PT 380 [place] [address] [email or web address] 11/28/2024 11:30 AM EDT Office Visit [facility] [address] [place] [address] Brooke Pressley MD [address] [address] Kim Braun, PT 380 [place] [address] [email or web address] 05/10/2025 9:15 AM EDT Appointment [facility] - [address] [place] [address] [facility] [address] [place] [address] documented as of this encounter Visit Diagnoses Diagnosis Rheumatoid arthritis with positive rheumatoid factor, involving unspecified site- Primary Chronic pain of both knees documented in this encounter Additional Health Concerns Assessment Noted Time PHQ-2 Depression Total Score: 0 09/02/19 10:16 AM EDT documented as of this encounter Care Teams Junior Electrical Engineer Relationship Specialty Start Date End Date Jessy Andersen NP PCP - General Nurse Practitioner 01/29/23 documented as of this encounter Additional Source Comments The information contained in this document represents components of the legal health record. It is not the complete legal health record.[facility]
--- OUTSIDE RECORDS SUMMARY | 2024-11-02 11:19 | XMS_ITS | Encounter Summary ---
Author Organization [facility] Address [address] [place] [address] Phone Care Team Providers Care Salvage Diver Name Role Phone Jacquelyn Chandler MD Primary Care Provider [phone] Jessy Andersen NP Primary Care Provider Reason for Referral * MRI/CAT Scan - Closed Specialty Diagnoses / Procedures Referred By Gabriele canales Referred To Contact Radiology Diagnoses Lower abdominal pain Procedures CT Abdomen/Pelvis Seth Jeter MD Phone: tel: fax: [email or web address] Referral ID Status Reason Start Date Expiration Date Visits Re quested Visits Authorized [id number] Closed 09/26/2021 09/26/2022 1 1 Encounter Details Date Type Department Care Team (Latest Contact Info) Description 09/26/2021 Transcribe Orders Virtual Department 30 [place] [address] Seth Jeter MD [address] [place] [address] [email or web address] Lower abdominal pain (Primary Dx) Social History Tobacco Use [...] st Contact Info) Description 09/28/2024 Procedure Pass [facility] - [address] [place] [address] 11/07/2024 11:30 AM EDT Office Visit [facility] [address] [place] [address] Brooke Pressley MD [address] [address] Kim Braun, PT 380 [place] [address] 11/14/2024 11:30 AM EDT Office Visit [address] [address] Brooke Pressley MD [address] [address] Kim Braun, PT 380 [place] [address] 11/21/2024 11:30 AM EDT Office Visit [address] [address] Brooke Pressley MD [address] [address] Kim Braun, PT 380 [place] [address] [email or web address] 11/28/2024 11:30 AM EDT Office Visit [facility] [address] [place] [address] Brooke Pressley MD 299 [facility] [address] [place] [address] Kim Braun, PT [address] [place] [address] [email or web address] 05/10/2025 9:15 AM EDT Appointment [address] [place] [address] Jessy Andersen, WIND TURBINE DESIGN ENGINEER 73 [facility] [place] [address] documented as of this encounter Results * CT ABDOMEN/PELVIS WITH CONTRAST (10/15/2021 9:24 AM EDT) Anatomical Region Laterality Modality Abdomen, Pelvis Computed Tomogra phy 10/15/2021 11:1 5 AM EDT Impressions 10/15/2021 11:30 AM EDT No evidence of diverticulitis or appendicitis Narrative 10/15/2021 11:[address] ABDOMEN/PELVIS WITH CONTRAST TECHNIQUE: Multidetector-row CT of the abdomen and pelvis was performed after administration of intravenous contrast using tailored dose modulation techniques. Images were reconstructed in the axial, coronal, and sagittal planes. COMPARISON: October 21, 2019, pelvic ultrasound 10/09/2021 FINDINGS: Lower Chest: Lung bases are clear. Unchanged right lung base AVM. Liver: Mild fatty liver. No focal lesions. Biliary: Gallbladder unremarkable. No biliary ductal dilatation. Spleen: Unremarkable Pancreas: Fatty infiltration of the pancreas. Adrenal Glands: No adrenal nodules. Kidneys/Ureters: No solid masses, stones, or hydronephrosis. Bowel: Appendix normal. No distention or wall thickening. Peritoneum/Retroperitoneum: Normal. No masses, pneumoperitoneum, or fluid. Lymph Nodes: Normal. No lymphadenopathy. Pelvic Organs/Bladder: Normal. No mass. Vessels: Vascular calcifications. Bones/Soft Tissues: Normal. No destructive osseous lesions. Procedure Note Kyle Hennessy MD, HEBERT - 10/15/2021 CT ABDOMEN/PELVIS WITH CONTRAST TECHNIQUE: Multidetector-row CT of the abdomen and pelvis was performedafter administration of intravenous contrast using tailored dosemodulation techniques. Images were reconstructed in the axial, coronal,and sagittal planes. COMPARISON: October 21, 2019, pelvic ultrasound 10/09/2021 FINDINGS: Lower Chest: Lung bases are clear. Unchanged right lung base AVM. Liver: Mild fatty liver. No focal lesions. Biliary: Gallbladder unremarkable. No biliary ductal dilatation. Spleen: Unremarkable Pancreas: Fatty infiltration of the pancreas. Adrenal Glands: No adrenal nodules. Kidneys/Ureters: No solid masses, stones, or hydronephrosis. Bowel: Appendix normal. No distention or wall thickening. Peritoneum/Retroperitoneum: Normal. No masses, pneumoperitoneum, orfluid. Lymph Nodes: Normal. No lymphadenopathy. Pelvic Organs/Bladder: Normal. No mass. Vessels: Vascular calcifications. Bones/Soft Tissues: Normal. No destructive osseous lesions. IMPRESSION: No evidence of diverticulitis or appendicitis Seth Jeter MD IMG CT ABD/PELVIS Final Resu lt documented in this encounter Visit Diagnoses Diagnosis Lower abdominal pain- Primary Abdominal pain, other specified site Lower abdominal pain Abdominal pain, other specified site documented in this encounter Additional Health Concerns Infection Onset Date Last Indicated Resolved Time CoV-Risk 12/21/2021 12/21/2021 01/01/2022 1:22 AM EDT Assessment Noted Time PHQ-2 Depression Total Score: 0 07/30/19 10:09 AM EDT documented as of this encounter Care Teams Salvage Diver Relationship Specialty Start Date End Date Jacquelyn Chandler MD [address] [place] [address] [email or web address] PCP - General Internal Medicine 12/01/17 01/28/23 Jessy Andersen NP [address] [place] [address] PCP - General Nurse Practitioner 01/29/23 documented as of this encounter Additional Source Comments The information contained in this document represents components of the legal health record. It is not the complete legal health record.[facility]
--- OUTSIDE RECORDS SUMMARY | 2024-11-02 11:19 | XMS_ITS | Encounter Summary ---
Author Organization [facility] Address [address] [place] [address] Phone Care Team Providers Care Bellstaff Name Role Phone Jessy Andersen ENGINE TESTER Primary Care Provider Encounter Details Date Type Department Care Team (Late st Contact Info) Description 04/09/2023 Ancillary Orders Virtual Department 30 [place] [address] Jessy Andersen NP [address] [place] [address] Rheumatoid arthritis with positive rheumatoid factor, involving [...] st Contact Info) Description 09/28/2024 Procedure Pass [facility] - [address] [place] [address] 11/07/2024 11:30 AM EDT Office Visit [facility] Services [address] [place] [address] Brooke Pressley MD [address] [address] Kim Braun, PT 380 [place] [address] 11/14/2024 11:30 AM EDT Office Visit [facility] Services [address] [place] [address] Brooke Pressley MD [address] [address] Kim Braun, PT [address] [place] [address] [email or web address] 11/21/2024 11:30 AM EDT Office Visit [address] [address] Brooke Pressley MD [address] [address] Kim Braun, PT 380 [place] [address] 11/28/2024 11:30 AM EDT Office Visit [facility] Services [address] [place] [address] Brooke Pressley MD [address] [address] Kim Braun, PT [address] [place] [address] [email or web address] 05/10/2025 9:15 AM EDT Appointment [facility] - [address] [place] [address] Jessy Andersen, ENGINE TESTER [address] [place] [address] documented as of this encounter Results * XR Knee Standing (Bilateral, Single View Only) (04/09/2023 3:05 PM EST) Anatomical Region Laterality Modality Knee Right, Knee Bilateral Compu jackelin Radiography 04/11/2023 10:3 4 PM EST Impressions 04/11/2023 10:36 PM EST Mild to moderate cartilage loss in the medial and lateral compartments on the right. Mild cartilage loss in the medial and lateral compartments on the left. 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 Narrative 04/11/2023 10:36 PM EST XR KNEE STANDING (BILATERAL, SINGLE VIEW ONLY) Referring clinician's provided indication for this examination in Epic: Outside Radiology Order; Chronic Pain of Both Knees COMPARISON: XR KNEE 3 VIEW (RIGHT) FINDINGS: RIGHT KNEE: Knee joint space narrowing with subchondral sclerosis and marginal osteophytes is mild to moderate in the medial and lateral compartments. Patellofemoral compartment not assessed. No acute fracture or dislocation. Chondrocalcinosis of the medial and lateral compartment. LEFT KNEE: Knee joint space narrowing with subchondral sclerosis and marginal osteophytes is mild in the medial and lateral compartments. Patellofemoral compartment not assessed. No acute fracture or dislocation. Chondrocalcinosis of the medial and lateral compartment. Procedure Note Renard Shi MD - 04/11/2023 XR KNEE STANDING (BILATERAL, SINGLE VIEW ONLY) Referring clinician's provided indication for this examination in Epic:Outside Radiology Order; Chronic Pain of Both Knees COMPARISON: XR KNEE 3 VIEW (RIGHT) FINDINGS: RIGHT KNEE: Knee joint space narrowing with subchondral sclerosis andmarginal osteophytes is mild to moderate in the medial and lateralcompartments. Patellofemoral compartment not assessed. No acute fractureor dislocation. Chondrocalcinosis of the medial and lateral compartment. LEFT KNEE: Knee joint space narrowing with subchondral sclerosis andmarginal osteophytes is mild in the medial and lateral compartments.Patellofemoral compartment not assessed. No acute fracture or dislocation.Chondrocalcinosis of the medial and lateral compartment. IMPRESSION: Mild to moderate cartilage loss in the medial and lateral compartments onthe right. Mild cartilage loss in the medial and lateral compartments on the left. 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 Jessy Andersen NP IMG XR LOWER EXTREMITY Final Result documented in this encounter Visit Diagnoses Diagnosis Rheumatoid arthritis with positive rheumatoid factor, involving unspecified site Chronic pain of both knees Rheumatoid arthritis with positive rheumatoid factor, involving unspecified site- Primary Chronic pain of both knees documented in this encounter Additional Health Concerns Assessment Noted Time PHQ-2 Depression Total Score: 0 09/02/19 23 10:16 AM EDT documented as of this encounter Care Teams Bellstaff Relationship Specialty Start Date End Date Jessy Andersen NP PCP - General Nurse Practitioner 01/29/23 documented as of this encounter Additional Source Comments The information contained in this document represents components of the legal health record. It is not the complete legal health record.[facility]
--- OUTSIDE RECORDS SUMMARY | 2024-11-02 11:19 | XMS_ITS | Encounter Summary ---
Author Organization [facility] Address [address] [place] [address] Phone Care Team Providers Care Welder Tool And Die Name Role Phone JaleesaJessy acosta Tyra APPLE Primary Care Provider Encounter Details Date Type Department Care Team (Late st Contact Info) Description 01/29/2023 Procedure Pass [facility] - [address] [place] [address] Social History Tobacco Use Types Packs/Day Years [...] st Contact Info) Description 09/28/2024 Procedure Pass [facility] - [address] [place] [address] 11/07/2024 11:30 AM EDT Office Visit [facility] [address] [place] [address] Brooke Pressley MD [address] [address] Kim Braun, PT 380 [place] [address] [email or web address] 11/14/2024 11:30 AM EDT Office Visit [facility] [address] [place] [address] Brooke Pressley MD [address] [address] Kim Braun, PT 380 [place] [address] 11/21/2024 11:30 AM EDT Office Visit [facility] [address] [place] [address] Brooke Pressley MD [address] [address] Kim Braun, PT [address] [facility] [place] [address] 11/28/2024 11:30 AM EDT Office Visit [facility] Services [address] [place] [address] Brooke Pressley MD 299 [facility] [address] [place] [address] Kim Braun, PT 380 [place] [address] 05/10/2025 9:15 AM EDT Appointment [facility] - [address] [place] [address] Jessy Andersen NP 73 [place] [address] documented as of this encounter Visit Diagnoses Not on filedocumented in this encounter Additional Health Concerns Assessment Noted Time PHQ-2 Depression Total Score: 0 09/02/19 23 10:16 AM EDT documented as of this encounter Care Teams Welder Tool And Die Relationship Specialty Start Date End Date Jessy Andersen NP PCP - General Nurse Practitioner 01/29/23 documented as of this encounter Additional Source Comments The information contained in this document represents components of the legal health record. It is not the complete legal health record.[facility]
--- OUTSIDE RECORDS SUMMARY | 2024-11-02 11:19 | XMS_ITS | Encounter Summary ---
Author Organization [facility] Address [address] [place], [place] [id number] Phone Care Team Providers Care Mapping Supervisor Name Role Phone Jacquelyn Chandler MD Primary Care Provider [phone] Jessy Andersen NP Primary Care Provider Encounter Details Date Type Department Care Team (Late st Contact Info) Description 08/14/2021 Procedure Pass [address] [place] [address] Social History Tobacco Use Types Packs/Day Years [...] st Contact Info) Description 09/28/2024 Procedure Pass [address] [place] [address] 11/07/2024 11:30 AM EDT Office Visit [address] [address] Brooke Pressley MD [address] [address] Kim Braun, PT [address] [place] [address] winter@ 11/14/2024 11:30 AM EDT Office Visit [facility] Services [address] [place] [address] Brooke Pressley MD [address] [address] Kim Braun, PT [address] [place] [address] winter@ 11/21/2024 11:30 AM EDT Office Visit [address] [address] Brooke Pressley MD [address] [address] Kim Braun, PT [address] [place] [address] winter@ 11/28/2024 11:30 AM EDT Office Visit [address] [address] Brooke Pressley MD [address] [address] Kim Braun, PT [address] [place] [address] winter@ 05/10/2025 9:15 AM EDT [facility]ment [facility] [address] [place] [address] [facility] centerJessy NP [address] [place] [address] documented as of this encounter Visit Diagnoses Not on filedocumented in this encounter Additional Health Concerns Infection Onset Date Last Indicated Resolved Time CoV-Risk 12/21/2021 12/21/2021 01/01/2022 1:22 AM EDT Assessment Noted Time PHQ-2 Depression Total Score: 0 07/30/19 10:09 AM EDT documented as of this encounter Care Teams Mapping Supervisor Relationship Specialty Start Date End Date Jacquelyn Chandler MD [address] [place] [address] PCP - General Internal Medicine 12/01/17 01/28/23 Jessy Andersen NP [address] [place] [address] PCP - General Nurse Practitioner 01/29/23 documented as of this encounter Additional Source Comments The information contained in this document represents components of the legal health record. It is not the complete legal health record.[facility]
--- OUTSIDE RECORDS SUMMARY | 2024-11-02 11:20 | XMS_ITS | Encounter Summary ---
Author Organization [facility] Address [address] [place] [address] Phone Care Team Providers Care Online Marketing Coordinator Name Role Phone Jacquelyn Chandler MD Primary Care Provider Jessy Andersen NP Primary Care Provider Encounter Details Date Type Department Care Team (Late st Contact Info) Description 09/23/2021 Procedure Pass [address] [place] [address] Social History Tobacco Use Types Packs/Day Years [...] st Contact Info) Description 09/28/2024 Procedure Pass [address] [place] [address] 11/07/2024 11:30 AM EDT Office Visit [address] [address] Brooke Pressley MD [address] [address] Kim Braun, PT 380 [place] [address] 11/14/2024 11:30 AM EDT Office Visit [facility] Services [address] [place] [address] Brooke Pressley MD [address] [address] Kim Braun, PT 380 [place] [address] 11/21/2024 11:30 AM EDT Office Visit [address] [address] Brooke Pressley MD [address] [address] Kim Braun, PT 380 [place] [address] 11/28/2024 11:30 AM EDT Office Visit [address] [address] Brooke Pressley MD [address] [address] Kim Braun, PT [address] [place] [address] 05/10/2025 9:15 AM EDT [facility]ointment [facility] - [address] [place] [address] Jaleesaclearwater valley hospitalJessy NP [address] [place] [address] documented as of this encounter Visit Diagnoses Not on filedocumented in this encounter Additional Health Concerns Infection Onset Date Last Indicated Resolved Time CoV-Risk 12/21/2021 12/21/2021 01/01/2022 1:22 AM EDT Assessment Noted Time PHQ-2 Depression Total Score: 0 07/30/19 10:09 AM EDT documented as of this encounter Care Teams Online Marketing Coordinator Relationship Specialty Start Date End Date Jacquelyn Chandler MD [address] [place] [address] PCP - General Internal Medicine 12/01/17 01/28/23 Jessy Andersen NP [address] [place] [address] PCP - General Nurse Practitioner 01/29/23 documented as of this encounter Additional Source Comments The information contained in this document represents components of the legal health record. It is not the complete legal health record.[facility]
--- OUTSIDE RECORDS SUMMARY | 2024-11-02 11:20 | XMS_ITS | Encounter Summary ---
Author Organization [facility] Address [address] [place] [address] Phone Care Team Providers Care Transportation Refrigeration Technician Name Role Phone Jaleesakarla Jessy Mary NP Primary Care Provider Encounter Details Date Type Department Care Team (Late st Contact Info) Description 06/22/2024 Procedure Pass [facility], [address] [address] Social History Tobacco Use Types Packs/Day Years [...] Procedure Pass [facility] - [address] [place] [address] 11/07/2024 11:30 AM EDT Office Visit [facility] Services [address] [place] [address] Brooke Pressley MD [address] [address] Kim Braun, PT [address] [place] [address] [email or web address] 11/14/2024 11:30 AM EDT Office Visit [facility] Services [address] [place] [address] Brooke Pressley MD [address] [address] Kim Braun, PT [address] [place] [address] [email or web address] 11/21/2024 11:30 AM EDT Office Visit [facility] Services [address] [place] [address] Brooke Pressley MD [address] [address] Kim Braun, PT [address] [place] [address] 11/28/2024 11:30 AM EDT Office Visit [facility] Services [address] [place] [address] Brooke Pressley MD 299 [facility] [address] [place] [address] Kim Braun, PT [address] [place] [address] 05/10/2025 9:15 AM EDT Appointment [address] [place] [address] Jessy Andersen NP [address] [place] [address] documented as of this encounter Visit Diagnoses Not on filedocumented in this encounter Additional Health Concerns Assessment Noted Time PHQ-2 Depression Total Score: 0 09/02/19 23 10:16 AM EDT documented as of this encounter Care Teams Transportation Refrigeration Technician Relationship Specialty Start Date End Date Jessy Andersen NP PCP - General Nurse Practitioner 01/29/23 documented as of this encounter Additional Source Comments The information contained in this document represents components of the legal health record. It is not the complete legal health record.[facility]
--- OUTSIDE RECORDS SUMMARY | 2024-11-02 11:20 | XMS_ITS | Encounter Summary ---
Author Organization [employer] Address [address] [place] [address] 7[address] [place] [address] Care Team Providers Care Beauty Shop Manager Name Role Phone [facility] Primary Care Provider [phone] Encounter Details Date Type Department Care Team (Late st Contact Info) Description 02/06/2023 Orders Only [facility] Information Management [address] [place] [address] [facility] [place] [facility] [address] [place] [address] Social History Tobacco Use Types Packs/Day Years [...] 12/22/2024 11:40 AM EDT Office Visit [facility] [address] [place] [address] [place], [place] [facility] [address] [place] [address] documented as of this encounter Procedures Procedure Name Priority Date/Time Associated Diagnosis Comments MAMMOGRAPHY Routine 02/03/2023 documented in this encounter Results * Mammography (02/03/2023) Anatomical Region Laterality Modality Other Jessy Andersen [facility] Result - Final documented in this encounter Visit Diagnoses Not on filedocumented in this encounter Care Teams Beauty Shop Manager Relationship Specialty Start Date End Date Jessy Andersen FNP [address] [facility] [place] [place] [address] PCP - General Family Medicine 10/01/22 documented as of this encounter
--- OUTSIDE RECORDS SUMMARY | 2024-11-02 11:20 | XMS_ITS | Clinical Summary ---
Author Organization [facility] Address [address] [address] Phone Care Team Providers Care Street Light Wirer Name Role Phone JaleesaDinh acosta Tyra APPLE Primary Care Provider Allergies No known active allergies Medications atorvastatin (LIPITOR) 40 MG tablet Take 40 mg by mouth daily. 06/13/19 21 Active acetaminophen (TYLENOL) 500 MG tablet Take 2 tablets (1,000 mg total) by mouth 3 (three) times a day as needed for pain (specific location in comments). 20 tablet 09/12/19 22 Active montelukast (SINGULAIR) 10 mg tabletIndications: Mild intermittent asthma without complication Take 1 tablet (10 mg total) by mouth daily. 90 tablet 3 12/10/19 22 Active aspirin 81 MG EC tablet TAKE 1 TABLET BY MOUTH DAILY. CALL OFFICE FOR FOLLOWUP [phone] 12/10/19 22 Active levalbuterol (XOPENEX) 0.31 mg/3 mL nebulizer solution Take 3 mL (0.31 mg total) by nebulization every 4 (four) hours as needed for wheezing or shortness of breath/dyspnea (or coughing (use instead of Albuterol Updraft)). 180 mL 1 01/17/20 22 Active ipratropium bromide 0.02 % nebulizer solution Take 2.5 mL (500 mcg total) by nebulization every 6 (six) hours as needed for wheezing (sob, coughing). 150 mL 1 01/17/20 22 Active cholecalciferol, vitamin D3, (VITAMIN D3 ORAL) TAKE 1 CAPSULE BY MOUTH EVERY DAY 04/08/19 23 Active ciclopirox (PENLAC) 8 % solutionIndication s:Onychomycosis Apply topically daily. Apply over nail and surrounding skin. Apply daily over previous coat. After seven (7) days, may remove with nail occitan remover and continue cycle. 6.6 mL 3 05/30/19 23 Active metoprolol succinate (TOPROL-XL) 25 MG 24 hr tablet Take 1 tablet (25 mg total) by mouth daily. 90 tablet 3 08/06/19 23 Active fluticasone propionate (FLONASE) 50 mcg/actuation nasal sprayIndications:S easonal allergies 2 sprays by Nasal route daily. 16 mL 11 10/23/19 23 Active famotidine (PEPCID) 40 MG tablet TAKE 1 TABLET BY MOUTH EVERYDAY AT BEDTIME ORALLY ONCE A DAY 30 DAYS 09/20/19 23 Active nabumetone (RELAFEN) 500 MG tablet Take 500 mg by mouth daily. 05/14/19 24 Active dicyclomine (BENTYL) 10 MG capsule TAKE 2 CAPSULES BY MOUTH EVERY DAY NEEDED 04/21/19 24 Active diclofenac sodium (VOLTAREN) 1 % GelIndications:Lynda jarod osteoarthritis of both knees Apply 4 grams to each knee up to 4 times daily as needed 100 g 1 05/29/19 24 Active DULoxetine (CYMBALTA) 30 MG capsuleIndications :Primary osteoarthritis of both knees,Chronic bilateral low back pain without sciatica TAKE 1 CAPSULE (30 MG TOTAL) BY MOUTH EVERY EVENING. WITH FOOD 90 capsule 1 06/22/19 24 Active albuterol 90 mcg/actuation inhalerIndications :REHMAN (dyspnea on exertion) inhale 2 puffs by mouth every 6 hours as needed 8 g 4 11/03/19 24 Active Active Problems Problem Noted Date Diagnosed Date Chronic bilateral low back pain without sciatica 05/29/2023 Assessment & Plan (05/29/2023 10:19 AM EDT): Patient amenable to dedicated PT as well as trial duloxetine as above. No indication for ongoing rheum-specific mgmt of non-inflammatory LBP. Right groin pain 05/29/2023 Assessment & Plan (05/29/2023 10:18 AM EDT): Suspect right hip OA; baseline plain film at patient's convenience Dysuria 05/12/2022 Assessment & Plan (05/23/2022 8:01 AM EDT): C/o UTI symptoms Will check UCx Will treat empirically with abx Risks/benefits of therapy explained, including MAT and other treatment options. Umbilical hernia without obstruction and without gangrene 05/12/2022 Assessment & Plan (05/23/2022 8:02 AM EDT): Refer to Dr. Joy Onychomycosis 05/12/2022 Assessment & Plan (05/23/2022 8:01 AM EDT): Refer to Podiatry Acute bronchitis 02/14/2022 Assessment & Plan (02/14/2022 6:09 PM EST): See below Flank pain 02/13/2022 Assessment & Plan (02/13/2022 7:03 AM EST): New complaint-Intermittent Reviewed Abd Pelvic CT from September 2021 and WNL No overt kidney issues ? Kidney stone Check UA RTC if symptoms recur Other pneumonia, unspecified organism 01/17/2022 Assessment & Plan (02/13/2022 7:04 AM EST): Much improved Re-Check CXR in 2 months per Radiology Rec Assessment & Plan (01/17/2022 8:12 PM EST): Recheck CXR Add Zpak To ER for Severe Symptoms Hypoxia 01/17/2022 Assessment & Plan (02/14/2022 6:09 PM EST): Mildly improved today Assessment & Plan (01/17/2022 8:11 PM EST): See above Malaise and fatigue 01/17/2022 Moderate persistent asthma with exacerbation 04/2021 Assessment & Plan (05/23/2022 8:01 AM EDT): F/u Pulm Assessment & Plan (02/14/2022 6:11 PM EST): Continues to have sig symptoms of Mod Asthma Exam Risks/benefits of therapy explained, including MAT and other treatment options. Educated on inhaler uses. Add Nebulizer Continue Current regimen S/p Augmentin from for Bronchitis and Sinusitis These sxs have improved To ER for severe symptoms Will recheck CXR in 4-6 Weeks unless symptoms not improving, would then check CXR sooner Assessment & Plan (02/13/2022 7:04 AM EST): Much improved Continue inhalers as needed Assessment & Plan (01/17/2022 8:11 PM EST): See above Change to Xopenex UDs and add Iprtropium Assessment & Plan (01/02/2022 8:00 AM EDT): Currently with mod asthma exacerbation S/p abx for sinusitis but still dyspneic Trial prednisone Risks/benefits of therapy explained, including MAT and other treatment options. Check CXR Currently I don't think she needs more abx, but if CXR + for infiltrate, will rx broad spectrim abx To ER for severe sxs Acute non-recurrent sinusitis 01/02/2022 Assessment & Plan (02/14/2022 6:09 PM EST): See below Assessment & Plan (01/02/2022 8:00 AM EDT): ? Contributing to CHACON Flonase, etc. prednisone Intractable headache 01/02/2022 Assessment & Plan (01/02/2022 7:59 AM EDT): Unclear etiology ? From sinusitis Will try prednisone burst To ER for severe sxs Need for hepatitis C screening test 08/01/2021 Screening for human immunodeficiency virus 08/01 Atherosclerosis of coronary artery of [place] 08/01/2021 Assessment & Plan (02/13/2022 7:02 AM EST): F/u Cardiology as discussed Assessment & Plan (08/01/2021 1:42 PM EDT): Follow up with Cardiology as discussed Requesting 2nd opinion from [facility] Hyperlipidemia 08/01/2021 Assessment & Plan (02/13/2022 7:03 AM EST): Controlled on meds Assessment & Plan (08/01/2021 1:43 PM EDT): Controlled on medication Seasonal allergies 08/01/2021 Assessment & Plan (01/02/2022 8:00 AM EDT): Continue current MAT for allergy sxs Breast pain 08/01/2021 Routine general medical exam ination at a health care facility 08/01/2021 Assessment & Plan (08/01/2021 1:37 PM EDT): Sees Dr. Dayana Freedman regularly Mammo UTD Colonoscopy 2020 +SBE every 2-3 months Declines Shingrix vaccine today Palpitations 08/01/2021 Assessment & Plan (02/13/2022 7:04 AM EST): Unclear etiology Patient currently being evaluated by Cardiology for this Assessment & Plan (08/01/2021 1:43 PM EDT): Per your request, referral to [facility] given your persistant symptoms Tick bite of right hand 08/01/2021 Assessment & Plan (08/01/2021 1:44 PM EDT): Check lyme as discussed Call if deer tick bite Dyspnea 08/07/2020 Assessment & Plan (05/23/2022 8:01 AM EDT): Persists, f/u pulm Assessment & Plan (01/17/2022 8:11 PM EST): Patient not really improving SOB Mild hypoxia Concern for recurrent PNA vs. Other Start Zpak Change Albuterol UD's to Xopenex Add Ipratropium UDs Hopefully she won't feel as jittery Continue Advair Restart Prednisone with long taper Recheck CXR To ER for severe sxs Patient verbalized understanding and agreement of the above Assessment & Plan (01/02/2022 7:59 AM EDT): Sig REHMAN See below Pelvic pressure in female 12/27/2019 Assessment & Plan (12/27/2019 2:44 PM EDT): Physical exam unremarkable today. Unclear etiology of pelvic pressure in the LLQ. May or may not be related to recent hysteroscopy/endometrial polypectomy. I would anticipate resolution of any inflammatory changes by now 4 weeks s/p procedure. Since overall patient symptoms have improved since last week, exam unremarkable and urine negative for infection, I have suggested continued expectant management. If symptoms have not resolved in the next 3-5 days or if there is any worsening of symptoms, advised follow-up. Family history of uterine cancer 10/21/2019 Overview (10/21/2019): Reports sister with uterine cancer Assessment & Plan (09/17/2020 1:39 PM EDT): Benign polyps on hysteroscopy 2019 Elevated rheumatoid factor 03/18/2019 Overview (05/29/2023): 20.2 (2023) 28.7 (2019) Assessment & Plan (05/29/2023 10:18 AM EDT): Questionable clinical significance of chronically borderline elevation in RF in the absence of historic, physical, or other specific serologic evidence concerning for rheumatoid or other inflammatory arthritis. No current indication for further rheum-specific w/u. Happy to re-evaluate for any clinical concern for evolving inflammatory arthritis. Primary osteoarthritis of both knees 01/21/2019 Overview (05/29/2023): R > L; nabumetone effective but dose limited by GI side effects Assessment & Plan (05/29/2023 10:21 AM EDT): Patient declined intra-articular steroid injection today; she can continue nabumetone as tolerated and add topical diclofenac. Addition of duloxetine may provide additional benefit; start 30 mg daily and can increase to 60 mg daily if tolerated. If duloxetine is effective and tolerated, future refills of this non- rheumatology specific medication will be deferred to PCP. Degenerative disc disease, lumbar 01/21/2019 LLQ pain 09/27/2018 Overview (10/21/2019): >1 year, intermittant, unexplained 10/21/19 CT scan normal (CT scan reports RLQ pain) Assessment & Plan (02/13/2022 7:03 AM EST): Sees GI for this Nothing overt on work up Assessment & Plan (10/21/2019 3:04 PM EDT): Unlikely of MANAGER ASSET MANAGEMENT origin Assessment & Plan (09/27/2018 3:51 PM EDT): Reports no pain today. GI w/u has been unrevealing. UA was negative. CT shows only a 13mm right ovarian cyst without worrisome feature Resolved Problems Problem Noted Date Diagnosed Date Resolved Date Mild intermittent asthma without complication 08/02/19 22 02/14/2022 Assessment & Plan (08/01/2021 1:43 PM EDT): Follow up with Pulmonary Endometrial polyp 09/13/2019 09/17/2020 Overview (10/21/2019): 1cm fundal polyp noted incidentally on ultrasound - confirmed on sonohysterogram; no bleeding. Assessment & Plan (10/21/2019 1:57 PM EDT): She has never had bleeding from the uterus. I reviewed with her the low chance of cancer of the uterus/polyp; and options of expectant management, biopsy, or removal with hysterescopy. She expresses that she would like a hysterectomy, so she does not have to worry about recurrent polyps or cancer. I review with her that this would be a much larger surgery with increased risks, and I do not think is warranted in this situation. I offer her a second opinion. She declines, and would like to schedule the hysteroscopy. We review surgery and postop recovery, medications, and risks of surgery. Will sign consent on admit. Assessment & Plan (10/05/2019 9:00 AM EDT): 1cm endometrial fundal polyp seen on today's ultrasound. I discussed with patient that these are generally benign, but assessment is warrented; gave patient option of EMB now; versus scheduling in OR hysteroscopy polypectomy. I discuss with her the pros and cons; she chooses hysteroscopy. I discuss sedation, and 1-2 days of cramps/bleeding expected afterwards. Elbow pain, left 01/21/2019 05/29/2023 Right ovarian cyst 09/27/2018 0 Overview (09/27/2018): 13mm R ovarian cyst seen on CT Assessment & Plan (10/05/2019 8:58 AM EDT): Not visible on today's ultrasound. No further monitoring needed Assessment & Plan (09/27/2018 3:52 PM EDT): I reviewed with her that US shows details better; if simple, very low risk of malignancy; Plan pelvic US Encounters Date Type Department Care Team Description 10/17/2024 9:15 AM EDT Office Visit [address] [address] Brooke Pressley MD Sharkey, Linda Ann, PT Other abnormalities of gait and mobility (Primary Dx) 10/06/2024 10:30 AM EDT Office Visit [address] [address] Brooke Pressley MD Sharkey, Linda Ann, PT Other abnormalities of gait and mobility (Primary Dx) 10/06/2024 Plan of Care Documentation [address] [address] 10/04/2024 10:12 AM EDT - 10/04/2024 11:59 PM EDT Hospital Encounter [facility], Bone Density - [facility] [address] [place] [address] Dinh Keane NP Discharge Disposition: Home or Self Care 10/04/2024 9:23 AM EDT - 10/04/2024 10:11 AM EDT Hospital Encounter [facility] [address] [place] [address] [facility] Disposition: Home or Self Care 10/03/2024 9:42 AM EDT - 10/03/2024 11:59 PM EDT Hospital Encounter [facility] - [address] [place] [address] [facility] Disposition: Home or Self Care 09/28/2024 Transcribe Orders Virtual Department [address] [place] [id number] [facility] Breast screening (Primary Dx); Nausea and vomiting, unspecified vomiting type 09/22/2024 Transcribe Orders Virtual Department [address] [place] [phone] [facility] Nausea and vomiting, unspecified vomiting type (Primary Dx) 09/06/2024 Transcribe Orders [facility] [address] [place] [address] Angela Olson Encounter for rehabilitation (Primary Dx) from Last 3 Months Immunizations Immunization Administration Dates Next Due COVID-19 (Pre-12/22) Pfizer Vaccine, mRNA, PF 02/05/2021,07/02/2020,06/11/2020 Influenza Quadrivalent Preservative Free IM 10/01,01/19/2015 Tdap 10/12/2014 Family History Medical History Relation Comments CABG Brother 1 Heart disease Brother 1 Heart disease Brother 2 defibrillator Stroke Father Liver cancer Mother Cancer Sister Diabetes Sister Kidney disease Sister Relation Status Comments Brother 1 Alive Brother 2 Alive Father Maternal Grandfather Maternal Grandmother Mother Paternal Grandfather Paternal Grandmother Sister Social History Tobacco Use Types Packs/Day Years Used Date Smoking Tobacco: Never Passive Smoke Exposure: Yes Smokeless Tobacco: Never Tobacco Cessation:Counseling Given: Not [...] file Not on file Not on file Last Filed Vital Signs Vital Sign Reading Time Taken Comments Blood Pressure 124/78 05/29/2023 9:29 AM EDT Pulse 96 05/29/2023 9:29 AM EDT Temperature 36.5 C (97.7 F) 08/28/2022 10:44 PM EDT Respiratory Rate 16 09/01/2022 10:44 AM EDT Oxygen Saturation 94% 05/29/2023 9:29 AM EDT Inhaled Oxygen Concentration - - Weight 76.7 kg (169 lb) 07/22/2024 2:38 PM EDT Height 162.6 cm (5' 4 ) 07/22/2024 2:38 PM EDT Body Mass Index 29.01 07/22/2024 2:38 PM EDT Plan of Treatment Upcoming Encounters Date Type Department Care Team (Late st Contact Info) Description 09/28/2024 Procedure Pass [facility] - [address] [place] [address] 11/07/2024 11:30 AM EDT Office Visit [address] [address] Brooke Preslsey MD [address] [address] Kim Braun, PT [address] [place] [address] [email or web address] 11/14/2024 11:30 AM EDT Office Visit [address] [address] Brooke Pressley MD [address] [address] Kim Braun, PT [address] [place] [address] [email or web address] 11/21/2024 11:30 AM EDT Office Visit [address] [address] Brooke Pressley MD [address] [address] Kim Braun, PT [address] [place] [address] 11/28/2024 11:30 AM EDT Office Visit [address] [address] Brooke Pressley MD [address] [address] Kim Braun, PT 380 [facility] [place] [address] 05/10/2025 9:15 AM EDT Appointment [address] [place] [address] Dinh Keane, SENIOR CONTRACT SPECIALIST [address] [place] [address] Health Maintenance Due Date Last Done Comments PNEUMOCOCCAL VACCINES (50+ years) (1 of 2 - PCV) 10/20/1975 COLOGUARD 2001 FIT TEST 2001 FOBT 2001 SIGMOIDOSCOPY 2001 VIRTUAL COLONOSCOPY 2001 ZOSTER VACCINES (1 of 2) 2006 RSV VACCINE (1 - Risk 60-74 years 1-dose series) 2016 DEPRESSION SCREENING 09/02/2023 09/01/2022 INFLUENZA VACCINE (#1) 2024 10/29/2015, 2014 Adult Td,Tdap Booster 10/12/2024 10/12/2014 COVID-19 VACCINE ( season) 2024 02/05/2021, 07/02/2020, 06/11/2020 MAMMOGRAM 02/03/2025 02/03/2023, 0703/2021, 04/02/2021, Additional history exists SCREENING FOR DIABETES 07/05/2027 07/04/2024 COLONOSCOPY 08/12/2028 08/12/2018 COLORECTAL CANCER SCREENING 08/12/2028 HEPATITIS C SCREENING Completed 11/27/2021 SMOKING STATUS SCREENING (Once After 26 Yrs) Completed 05/29/2023 OSTEOPOROSIS SCREENING INITIAL (ONE-TIME) Completed 10/04/2024 HEPATITIS A VACCINES Aged Out No long er eligible based on patient's age to complete this topic HIB VACCINES Aged Out No longer eligi ble based on patient's age to complete this topic MENINGOCOCCAL VACCINES (ACWY) Aged Out No longer eligible based on patient's age to complete this topic MENINGOCOCCAL VACCINES (B) Aged Out N o longer eligible based on patient's age to complete this topic Medical Devices Not on file Procedures Procedure Name Priority Date/Time Associated Diagnosis Comments BD DXA AXIAL (SPINE) WITH HIP Routine 10/04/2024 10:41 AM EDT Screening for osteoporosis H PYLORI UREA BREATH TEST Routine 10/04/2024 10:32 AM EDT Breast screening Nausea and vomiting, unspecified vomiting type US ABDOMEN LIMITED RIGHT UPPER QUADRANT Routine 10/03/2024 10:12 AM EDT Nausea and vomiting, unspecified vomiting type BI MAMMOGRAM SCREENING WITH TOMOSYNTHESIS WITH CAD (BILATERAL) Routine 02/03/2023 3:58 PM EST Breast screening HEPATITIS C ANTIBODY, QUALITATIVE Routine 11/27/2021 11:43 AM EDT Need for hepatitis C screening test HM COLONOSCOPY FOR RESULT ENTRY ONLY Routine 08/12/2018 from Last 3 Months or Most Recently Relevant to Health Maintenance Results * BD DXA AXIAL (SPINE) WITH HIP (10/04/2024 10:41 AM EDT) Anatomical Region Laterality Modality Bone Density Bone Density 10/04/2024 10:3 0 AM EDT Impressions 10/05/2024 12:30 PM EDT Interpretation: Normal bone mineral density. Narrative 10/05/2024 12:30 PM EDT Referred By: DINH KEANE Indications: Osteoporosis Scanner: [employer] A with serial# of [id number] located at [facility] Bone Density Scan (DXA) 10/04/24 Details of prior DXA scans are available by clicking View Full Report BMD T- Z- Skeletal Site gm/cm2 score score BMD Change Since Prior Scan ------ ----- ----- PA Spine (L1-L4) 1.005 -0.40 1.60 N/A Total Hip (Left) 0.979 0.30 1.70 N/A Femoral Neck (Left) 0.756 -0.80 0.80 N/A Total Hip (Right) 0.846 -0.80 0.60 N/A Femoral Neck (Right) 0.790 -0.50 1.10 N/A ------ ----- ----- * Denotes significant change when >= 0.022 g/cm2 for the spine, 0.027 g/cm2 for the total hip, 0.029 g/cm2 for the femoral neck. Interpretation: Normal bone mineral density. Technical Quality: Imaging of all sites was of adequate quality. FRAX: A FRAX(r) score is not provided because the patient has normal bone density. Reviewed By: Lauryn Serrano MD on 10/05/2024 12:30:02 Additional Information: -World Health Organization criteria classify adults based on lowest T-score at PA spine, hip or forearm: Normal (T-score >= -1.0), Osteopenia (T-score between -1 and -2.5), or Osteoporosis (T-score <= -2.5). At [facility], T-scores are compared to peak bone density of a young white gender matched reference population. - For premenopausal women and men under the age of 50, Z-scores (comparison to age, gender, and ethnicity matched reference population) are used: Above expected range for age (Z-score >= 2.0), Within expected range of age (Z-score 1.9 to -1.9), or Below expected range for age (Z-score <= -2.0). - The Bone Health and Osteoporosis Foundation recommends that treatment be considered in men aged more than 50 years and in postmenopausal women with ANY of the following: Prior hip or vertebral fractures; T-score of <= -2.5 at the PA spine or hip; or 10 year fracture probability by FRAX of >= 3% for the hip or >= 20% for major osteoporotic fracture. - The FRAX algorithm (https://www.marie.ac.uk/FRAX/tool.aspx) is designed to predict 10-year fracture risk in treatment-naive adults between the ages of 40 and 90. It is not intended to be used in those receiving pharmacologic osteoporosis treatment. - The TBS is derived from the texture of the DXA spine image and has been shown to be related to bone microarchitecture and fracture risk. This data provides information independent of BMD value. It adds to fracture risk assessment with a FRAX adjusted for TBS score. If your patient had a TBS and qualified for a FRAX score, the reported FRAX score has been adjusted for TBS. TBS Score Interpretation 1.350 and greater Normal bone microarchitecture 1.200 to 1.350 Partially degraded bone microarchitecture 1.200 and less Degraded bone microarchitecture - Including race/ethnicity in the generation of T- or Z-scores or in the FRAX calculation is complicated, and currently undergoing active review to ensure that we can give patients the best information on their risk of fracture. - Some prior studies may not be compatible with our comparison software. - Click on View Full Report to see subsequent pages with images and prior bone density results. Procedure Note Lauryn Serrano MD - 10/05/2024 Referred By: DINH KEANE Indications: Osteoporosis Scanner: [employer] A with serial# of [id number] located at [facility] Bone Density Scan (DXA) 10/04/24 Details of prior DXA scans are available by clicking View Full Report BMD T- Z- Skeletal Site gm/cm2 score score BMD Change Since Prior Scan ------ ----- PA Spine (L1-L4) 1.005 -0.40 1.60 N/A Total Hip (Left) 0.979 0.30 1.70 N/A Femoral Neck (Left) 0.756 -0.80 0.80 N/A Total Hip (Right) 0.846 -0.80 0.60 N/A Femoral Neck (Right) 0.790 -0.50 1.10 N/A ------ ----- * Denotes significant change when >= 0.022 g/cm2 for the spine, 0.027g/cm2 for the total hip, 0.029 g/cm2 for the femoral neck. Interpretation: Normal bone mineral density. Technical Quality: Imaging of all sites was of adequate quality. FRAX: A FRAX(r) score is not provided because the patient has normal bone density. Reviewed By: Lauryn Serrano MD on 10/05/2024 12:30:02 Additional Information: -World Health Organization criteria classify adults based on lowestT-score at PA spine, hip or forearm: Normal (T-score >= -1.0), Osteopenia (T-score between -1 and -2.5), or Osteoporosis (T-score <= -2.5). At [facility], T-scores are compared to peak bone density of a young white gender matched reference population. - For premenopausal women and men under the age of 50, Z-scores(comparison to age, gender, and ethnicity matched reference population) are used:Above expected range for age (Z-score >= 2.0), Within expected range of age (Z-score 1.9 to -1.9), or Below expected range for age (Z-score <= -2.0). - The Bone Health and Osteoporosis Foundation recommends that treatment be considered in men aged more than 50 years and in postmenopausal women with ANY of the following: Prior hip or vertebral fractures; T-score of <= -2.5 at the PA spine or hip; or 10 year fracture probability by FRAX of >= 3%for the hip or >= 20% for major osteoporotic fracture. - The FRAX algorithm (https://www.marie.ac.uk/FRAX/tool.aspx) is designed to predict 10-year fracture risk in treatment-naive adultsbetween the ages of 40 and 90. It is not intended to be used in those receiving pharmacologic osteoporosis treatment. - The TBS is derived from the texture of the DXA spine image and has been shown to be related to bone microarchitecture and fracture risk. This data provides information independent of BMD value. It adds to fracture risk assessment with a FRAX adjusted for TBS score. If your patient had a TBSand qualified for a FRAX score, the reported FRAX score has been adjusted for TBS. TBS Score Interpretation 1.350 and greater Normal bone microarchitecture 1.200 to 1.350 Partially degraded bone microarchitecture 1.200 and less Degraded bone microarchitecture - Including race/ethnicity in the generation of T- or Z-scores or in the FRAX calculation is complicated, and currently undergoing active review to ensure that we can give patients the best information on their risk of fracture. - Some prior studies may not be compatible with our comparison software. - Click on View Full Report to see subsequent pages with images andprior bone density results. IMPRESSION: Interpretation: Normal bone mineral density. Dinh Keane NP IMG BD BONE DENSITY DE XA Final Result * H PYLORI UREA BREATH TEST (10/04/2024 10:32 AM EDT) H.PYLORI C UREA BRTH Negative Negative [facility] [place] Comment: (NOTE) Result indicates the absence of current Helicobacter pylori infection. Blood 10/04/2024 10:3 2 AM EDT 10/04/2024 10:35 AM EDT Dinh Keane NP LAB BLOOD ORDERABLES F inal Result [facility] [address] [place] [address] * US ABDOMEN LIMITED RIGHT UPPER QUADRANT [...] clinician's provided indication for this examination in [facility]: Outside Radiology Order; Nausea/vomiting; EPIGASTRIC PAIN TECHNIQUE: [...] clinician's provided indication for this examination in [facility]:Outside Radiology Order; Nausea/vomiting; EPIGASTRIC PAIN TECHNIQUE: US [...] Noovert hydronephrosis. No sonographically evident renal calculi. us [place] Tyra [facility] SENIOR CONTRACT SPECIALIST IMG US ABDOMEN Final Result * BI MAMMOGRAM SCREENING WITH TOMOSYNTHESIS WITH CAD (BILATERAL) (02/03/2023 3:58 PM EST) Anatomical Region Laterality Modality Breast Left, Breast Right, Breast Bilateral Bila teral Mammography 02/05/2023 2:37 PM EST Impressions 02/05/2023 2:39 PM EST No specific mammographic evidence of malignancy in either breast. Annual screening mammography is recommended. BI-RADS CATEGORY: 1 - Negative. The patient will be notified of the results and recommendations. Narrative 02/05/2023 2:39 PM EST BI MAMMOGRAM SCREENING WITH TOMOSYNTHESIS WITH CAD (BILATERAL) Additional patient information: Screening. COMPARISON: Comparison is made with relevant prior imaging. Breast composition: There are scattered fibroglandular densities. FINDINGS: There has been no change in the mammographic findings since previous examination. No abnormal masses, suspicious calcifications, or other significant findings are identified mammographically in either breast. Procedure Note Taina Martinez MD, PhD - 02/05/2023 BI MAMMOGRAM SCREENING WITH TOMOSYNTHESIS WITH CAD (BILATERAL) Additional patient information: Screening. COMPARISON: Comparison is made with relevant prior imaging. Breast composition: There are scattered fibroglandular densities. FINDINGS: There has been no change in the mammographic findings since previousexamination. No abnormal masses, suspicious calcifications, or other significantfindings are identified mammographically in either breast. IMPRESSION: No specific mammographic evidence of malignancy in either breast. Annual screening mammography is recommended. BI-RADS CATEGORY: 1 - Negative. The patient will be notified of the results and recommendations. us Dinh Keane SENIOR CONTRACT SPECIALIST IMG MG EXAMS Final Result * Hepatitis C antibody, qualitative (11/27/2021 11:43 AM EDT) HCV NON-REACTIV E NON-REACTI VE [facility] Blood 11/27/2021 11:4 3 AM EDT 11/27/2021 11:47 AM EDT us Jacquelyn Chandler MD LAB BLOOD ORDERABLES Final R esult [facility] [address] [place] [address] * COLONOSCOPY FOR RESULT ENTRY ONLY (08/12/2018) Pathologist [facility]ly [facility] Colonoscopy 10 yr recall Historical Provider HEALTH MAINTENANCE Final Result from Last 3 Months or Most Recently Relevant to Health Maintenance Insurance [employer]EMENT [employer] REPLACEMENT [place] [id number] [facility] MEDICARE REPLACEMENT Care Teams Street Light Wirer Relationship Specialty Start Date End Date Dinh Keane NP PCP - General Nurse Practitioner 01/29/23 Additional Source Comments The information contained in this document represents components of the legal health record. It is not the complete legal health record.[facility]
--- OUTSIDE RECORDS SUMMARY | 2024-11-02 11:20 | XMS_ITS | Encounter Summary ---
Author Organization [facility] Address [address] [place] [address] Phone Care Team Providers Care Dial Buffer Name Role Phone Jessy Andersen ENTOMOLOGY PROFESSOR Primary Care Provider Reason for Referral * MRI/CAT Scan - Closed Specialty Diagnoses / Procedures Referred By Gabriele canales Referred To Contact Radiology Diagnoses Memory problem Balance problem Tremor Procedures MRI Brain Jessy Andersen NP [address] [place] [address] Phone: tel: fax: Referral ID Status Reason Start Date Expiration Date Visits Re quested Visits Authorized [id number] Closed 06/22/2024 06/22/2025 1 1 Encounter Details Date Type Department Care Team (Late st Contact Info) Description 06/22/2024 Transcribe Orders Virtual Department [address] [place] [address] Jessy Andersen NP [address] [place] [address] Memory problem (Primary Dx); Balance problem; Tremor Social History Tobacco Use Types Packs/Day Years [...] st Contact Info) Description 09/28/2024 Procedure Pass [facility] - [address] [place] [address] 11/07/2024 11:30 AM EDT Office Visit [facility] [address] [place] [address] Brooke Pressley MD [address] [place] [address] [address] [place] [address] Kim Braun, PT [address] [place] [address] 11/14/2024 11:30 AM EDT Office Visit [facility] [address] [place] [address] Brooke Pressley MD [address] [address] Kim Braun, PT [address] [place] [address] 11/21/2024 11:30 AM EDT Office Visit [facility] [address] [place] [address] Brooke Pressley MD [address] [address] Kim Braun, PT [address] [place] [address] 11/28/2024 11:30 AM EDT Office Visit [address] [address] Brooke Pressley MD [address] [address] Kim Braun, PT [address] [place] [address] 05/10/2025 9:15 AM EDT Appointment [facility] - [address] [place] [address] Jessy Andersen, AMBIKA [address] [place] [address] documented as of this encounter Results * MRI BRAIN WITHOUT CONTRAST (07/29/2024 10:07 AM EDT) Anatomical Region Laterality Modality Head Magnetic Resonan ce 08/01/2024 5:38 PM EDT Impressions 08/01/2024 5:43 PM EDT 1. No acute intracranial abnormality. 2. Minimal chronic white matter disease. 3. No evidence of a global or regional pattern of volume loss. Narrative 08/01/2024 5:43 PM EDT MRI BRAIN WITHOUT CONTRAST Referring clinician's provided indication for this examination in [facility]: Outside Radiology Order; tremor TECHNIQUE: MRI BRAIN WITHOUT CONTRAST COMPARISON: MRI of the brain performed on 09/18/2022 FINDINGS: Brain Parenchyma: No evidence of acute infarct, mass lesion, or hemorrhage. Minimal periventricular and subcortical T2/FLAIR hyperintensities are seen throughout both cerebral hemispheres, a nonspecific finding which may be seen in the setting of chronic microvascular disease. Redemonstration of a dilated left basal ganglia perivascular space. No significant global or regional parenchymal volume loss identified. Ventricular System and Extra-Axial Spaces: No evidence of midline shift or hydrocephalus. Extracranial Structures: Expected arterial flow signal is observed at the skull base. Minimal fluid involving the bilateral mastoid air cells. Procedure Note Elo Lopez MD - 08/01/2024 MRI BRAIN WITHOUT CONTRAST Referring clinician's provided indication for this examination in [facility]:Outside Radiology Order; tremor TECHNIQUE: MRI BRAIN WITHOUT CONTRAST COMPARISON: MRI of the brain performed on 09/18/2022 FINDINGS: Brain Parenchyma: No evidence of acute infarct, mass lesion, orhemorrhage. Minimal periventricular and subcortical T2/FLAIRhyperintensities are seen throughout both cerebral hemispheres, anonspecific finding which may be seen in the setting of chronicmicrovascular disease. Redemonstration of a dilated left basal gangliaperivascular space. No significant global or regional parenchymal volume loss identified. Ventricular System and Extra-Axial Spaces: No evidence of midline shift orhydrocephalus. Extracranial Structures: Expected arterial flow signal is observed at theskull base. Minimal fluid involving the bilateral mastoid air cells. IMPRESSION: 1. No acute intracranial abnormality. 2. Minimal chronic white matter disease. 3. No evidence of a global or regional pattern of volume loss. Jessy Andersen ENTOMOLOGY PROFESSOR IMG MR HEAD/NECK Final Result documented in this encounter Visit Diagnoses Diagnosis Memory problem- Primary Memory loss Balance problem Abnormality of gait Tremor Abnormal involuntary movements Memory problem Memory loss Balance problem Abnormality of gait Tremor Abnormal involuntary movements documented in this encounter Additional Health Concerns Assessment Noted Time PHQ-2 Depression Total Score: 0 09/02/19 23 10:16 AM EDT documented as of this encounter Care Teams Dial Buffer Relationship Specialty Start Date End Date Jessy Andersen NP PCP - General Nurse Practitioner 01/29/23 documented as of this encounter Additional Source Comments The information contained in this document represents components of the legal health record. It is not the complete legal health record.[facility]
--- OUTSIDE RECORDS SUMMARY | 2024-11-02 11:21 | XMS_ITS | Encounter Summary ---
Author Organization [facility] Address [address] [place] [address] Phone Care Team Providers Care Ornamental Plaster Sticker Name Role Phone Jacquelyn Chandler MD Primary Care Provider Jessy Andersen NP Primary Care Provider Encounter Details Date Type Department Care Team (Late Contact Info) Description 11/25/2019 Procedure Pass OR Admitting Dept - Virtual Department [address] [place] [address] Social History Tobacco Use Types Packs/Day Years [...] (Late Contact Info) Description 09/28/2024 Procedure Pass [address] [place] [address] 11/07/2024 11:30 AM EDT Office Visit [address] [address] Brooke Pressley MD [address] [address] Kim Braun, PT [address] [place] [address] [email or web address] 11/14/2024 11:30 AM EDT Office Visit [facility] [address] [place] [address] Brooke Pressley MD [address] [address] Kim Braun, PT [address] [place] [address] [email or web address] 11/21/2024 11:30 AM EDT Office Visit [address] [address] Brooke Pressley MD [address] [address] Kim Braun, PT [address] [place] [address] [email or web address] 11/28/2024 11:30 AM EDT Office Visit [address] [address] Brooke Pressley MD [address] [address] Kim Braun, PT [address] [place] [address] [email or web address] 05/10/2025 9:15 AM EDT Appointment [facility] - [address] [place] [address] Jessy Andersen NP [address] [facility] [place] [address] documented as of this encounter Visit Diagnoses Not on filedocumented in this encounter Additional Health Concerns Infection Onset Date Last Indicated Resolved Time CoV-Risk 12/21/2021 12/21/2021 01/01/2022 1:22 AM EDT documented as of this encounter Care Teams Ornamental Plaster Sticker Relationship Specialty Start Date End Date Jacquelyn Chandler MD [address] [place] [phone] [email or web address] PCP - General Internal Medicine 12/01/17 01/28/23 Jessy Andersen NP [address] [place] [address] PCP - General Nurse Practitioner 01/29/23 documented as of this encounter Additional Source Comments The information contained in this document represents components of the legal health record. It is not the complete legal health record.[facility]
--- OUTSIDE RECORDS SUMMARY | 2024-11-02 11:21 | XMS_ITS | Encounter Summary ---
Author Organization [facility] Address [address] [place] [address] Phone Care Team Providers Care Security Specialist Name Role Phone Jacquelyn Chandler MD Primary Care Provider Jessy Andersen NP Primary Care Provider Encounter Details Date Type Department Care Team (Late st Contact Info) Description 09/28/2019 Procedure Pass [facility], Ct Scan - [address] [address] Social History Tobacco Use Types Packs/Day Years [...] st Contact Info) Description 09/28/2024 Procedure Pass [facility] - [address] [place] [address] 11/07/2024 11:30 AM EDT Office Visit [facility] [address] [place] [address] Brooke Pressley MD [address] [address] Kim Braun, PT [address] [place] [address] 11/14/2024 11:30 AM EDT Office Visit [facility] [address] [place] [address] Brooke Pressley MD [address] [address] Kim Braun, PT [address] [place] [address] 11/21/2024 11:30 AM EDT Office Visit [address] [address] Brooke rPessley MD [address] [address] Kim Braun, PT [address] [place] [address] 11/28/2024 11:30 AM EDT Office Visit [address] [address] Brooke Pressley MD [address] [address] Kim Braun, PT [address] [place] [address] 05/10/2025 9:15 AM EDT Appointment [facility] - [address] [place] [address] Jessy Andersen, AMBIKA [address] [place] [address] documented as of this encounter Visit Diagnoses Not on filedocumented in this encounter Additional Health Concerns Infection Onset Date Last Indicated Resolved Time CoV-Risk 12/21/2021 12/21/2021 01/01/2022 1:22 AM EDT documented as of this encounter Care Teams Security Specialist Relationship Specialty Start Date End Date Jacquelyn Chandler MD [address] [place] [address] [email or web address] PCP - General Internal Medicine 12/01/17 01/28/23 Jessy Andersen NP [address] [place] [address] PCP - General Nurse Practitioner 01/29/23 documented as of this encounter Additional Source Comments The information contained in this document represents components of the legal health record. It is not the complete legal health record.[facility]
--- OUTSIDE RECORDS SUMMARY | 2024-11-02 11:21 | XMS_ITS | Encounter Summary ---
Author Organization [facility] Address [address] [place] [address] [place] [phone] Phone Care Team Providers Care Toe Puller Name Role Phone Jessy Andersen INSTRUMENT AND CONTROLS TECHNICIAN Primary Care Provider Encounter Details Date Type Department Care Team (Late st Contact Info) Description 03/11/2024 Ancillary Orders [facility], X-Ray - [address] [place] [address] Jessy Andersen NP [address] [place] [address] Acute cough (Primary Dx) Social History Tobacco Use Types [...] st Contact Info) Description 09/28/2024 Procedure Pass [facility] - [address] [place] [address] 11/07/2024 11:30 AM EDT Office Visit [facility] [address] [place] [address] Brooke Pressley MD [address] [address] Kim Braun, PT [address] [place] [address] 11/14/2024 11:30 AM EDT Office Visit [facility] [address] [place] [address] Brooke Pressley MD [address] [address] Kim Braun, PT [address] [place] [address] 11/21/2024 11:30 AM EDT Office Visit [address] [address] Brooke Pressley MD [address] [address] Kim Braun, PT [address] [place] [address] [email or web address] 11/28/2024 11:30 AM EDT Office Visit [facility] [address] [place] [address] Brooke Pressley MD [address] [address] Kim Braun, PT [address] [place] [address] [email or web address] 05/10/2025 9:15 AM EDT Appointment [facility] - [address] [place] [address] Jessy Andersen, INSTRUMENT AND CONTROLS TECHNICIAN [address] [place] [address] documented as of this encounter Results * XR CHEST PA AND LATERAL 2 VIEWS (03/11/2024 3:34 PM EST) Anatomical Region Laterality Modality Chest Computed Radiogr aphy 03/11/2024 3:44 PM EST Impressions 03/11/2024 3:45 PM EST Similar linear opacity in the left base, favored to represent an area of scarring. No new focal airspace consolidation. Narrative 03/11/2024 3:45 PM EST XR CHEST PA AND LATERAL 2 VIEWS Referring clinician's provided indication for this examination in Epic: Cough COMPARISON: 07/03/2022, 01/17/2022 FINDINGS: Devices/Tubes/Lines: None. Lungs: Few linear opacities in the left base. Pleura: No pleural effusion or pneumothorax. Heart/Mediastinum: Stable size and contour of the cardiac silhouette. Bones/Soft Tissues: Multilevel spondylosis and bilateral acromioclavicular arthropathy. Procedure Note Stella Velasquez MD - 03/11/2024 XR CHEST PA AND LATERAL 2 VIEWS Referring clinician's provided indication for this examination in Epic:Cough COMPARISON: 07/03/2022, 01/17/2022 FINDINGS: Devices/Tubes/Lines: None. Lungs: Few linear opacities in the left base. Pleura: No pleural effusion or pneumothorax. Heart/Mediastinum: Stable size and contour of the cardiac silhouette. Bones/Soft Tissues: Multilevel spondylosis and bilateral acromioclaviculararthropathy. IMPRESSION: Similar linear opacity in the left base, favored to represent an area ofscarring. No new focal airspace consolidation. Jessy Andersen NP IMG XR CHEST Final Result documented in this encounter Visit Diagnoses Diagnosis Acute cough- Primary Acute cough documented in this encounter Additional Health Concerns Assessment Noted Time PHQ-2 Depression Total Score: 0 09/02/19 23 10:16 AM EDT documented as of this encounter Care Teams Toe Puller Relationship Specialty Start Date End Date Jessy Andersen NP PCP - General Nurse Practitioner 01/29/23 documented as of this encounter Additional Source Comments The information contained in this document represents components of the legal health record. It is not the complete legal health record.[facility]
--- OUTSIDE RECORDS SUMMARY | 2024-11-02 11:21 | XMS_ITS | Encounter Summary ---
Author Organization [facility] Address [address] [place] [address] Phone Care Team Providers Care Conductor Orchestra Name Role Phone Dinh Keane DRY STARCH SUPERVISOR Primary Care Provider Encounter Details Date Type Department Care Team (Late st Contact Info) Description 12/23/2023 Transcribe Orders Virtual Department [address] [place] [address] Dinh Keane NP [address] [place] [address] Screening for osteoporosis (Primary Dx); Chronic bilateral low back pain without sciatica; Straining to void Social History Tobacco Use Types Packs/Day Years [...] Pass [facility] - [address] [place] [address] 11/07/2024 11:30 AM EDT Office Visit [facility] [address] [place] [address] Brooke Pressley MD [address] [address] Kim Braun, PT [address] [place] [address] 11/14/2024 11:30 AM EDT Office Visit [facility] [address] [place] [address] Brooke Pressley MD [address] [address] Kim Braun, PT [address] [place] [address] [email or web address] 11/21/2024 11:30 AM EDT Office Visit [address] [address] Brooke Pressley MD [address] [address] Kim Braun, PT 380 [place] [address] [email or web address] 11/28/2024 11:30 AM EDT Office Visit [facility] [address] [place] [address] Brooke Pressley MD [address] [address] Kim Braun, PT [address] [place] [address] [email or web address] 05/10/2025 9:15 AM EDT Appointment [facility] - [address] [place] [address] Dinh Keane, DRY STARCH SUPERVISOR [address] [place] [address] documented as of this encounter Results * BD DXA AXIAL (SPINE) WITH HIP (10/04/2024 10:41 AM EDT) Anatomical Region Laterality Modality Bone Density Bone Density 10/04/2024 10:3 0 AM EDT Impressions 10/05/2024 12:30 PM EDT Interpretation: Normal bone mineral density. Narrative 10/05/2024 12:30 PM EDT Referred By: DINH KEANE Indications: Osteoporosis Scanner: HoloFigCard A with serial# of [id number] located at [facility] Bone Density Scan (DXA) 10/04/24 Details of [...] -2.5), or Osteoporosis (T-score <= -2.5). At [facility], T-scores are compared to peak bone density [...] Referred By: DINH KEANE Indications: Osteoporosis Scanner: HoloFigCard A with serial# of [id number] located at [facility] Bone Density Scan (DXA) 10/04/24 Details of [...] -2.5), or Osteoporosis (T-score <= -2.5). At [facility], T-scores are compared to peak bone density [...] Interpretation: Normal bone mineral density. Dinh Keane DRY STARCH SUPERVISOR IMG BD BONE DENSITY DE XA Final Result * US Kidneys and Bladder (01/14/2024 10:05 AM EST) Anatomical Region Laterality Modality Abdomen, Kidney Ultrasound 01/14/2024 10:3 5 AM EST Impressions 01/14/2024 10:38 AM EST Normal assessment of the kidneys. Unremarkable assessment of the bladder. Post void residual volume measuring 17 mL's. Narrative 01/14/2024 10:38 AM EST Procedure: US KIDNEYS AND BLADDER 01/14/2024 9:43 AM US Indications: Outside Radiology Order; low back pain. Comparison: CT abdomen/pelvis dated October 15, 2021. CT abdomen/pelvis dated October 21, 2019. Ultrasound abdomen dated June 30, 2018. Technique: Serial longitudinal and transverse real-time worthington scale images through the retroperitoneum and pelvis were acquired utilizing a curved array transducer. Color Doppler images were used to assess vascularity. FINDINGS: Kidneys: The right kidney is normal in shape and position. The cortical thickness is normal and there is normal echogenicity. The right kidney measures 10.6 cm in length. There is no evidence of hydronephrosis, shadowing calcifications, solid/cystic masses or perinephric collections. The left kidney is normal in shape and position. The cortical thickness is normal and there is normal echogenicity. The left kidney measures 10.3 cm in length. There is no evidence of hydronephrosis, shadowing calcifications, solid/cystic masses or perinephric collections. Bladder: Examination of the bladder demonstrates normal contours. No intraluminal filling defects are identified. Bilateral ureteric jets were identified at the time of the exam. Urinary bladder volume assessment was performed: Prevoid volume: 127 mL. Postvoid volume: 17 mL. Procedure Note Nine, Johnson Granados MD - 01/14/2024 Procedure: US KIDNEYS AND BLADDER 01/14/2024 9:43 AM US Indications: Outside Radiology Order; low back pain. Comparison: CT abdomen/pelvis dated October 15, 2021. CT abdomen/pelvisdated October 21, 2019. Ultrasound abdomen dated June 30, 2018. Technique: Serial longitudinal and transverse real-time worthington scale imagesthrough the retroperitoneum and pelvis were acquired utilizing a curvedarray transducer. Color Doppler images were used to assess vascularity. FINDINGS: Kidneys: The right kidney is normal in shape and position. The cortical thicknessis normal and there is normal echogenicity. The right kidney .6 cm in length. There is no evidence of hydronephrosis, shadowingcalcifications, solid/cystic masses or perinephric collections. The left kidney is normal in shape and position. The cortical thickness isnormal and there is normal echogenicity. The left kidney measures 10.3 cmin length. There is no evidence of hydronephrosis, shadowingcalcifications, solid/cystic masses or perinephric collections. Bladder: Examination of the bladder demonstrates normal contours. Nointraluminal filling defects are identified. Bilateral ureteric jets were identified at the time of the exam. Urinary bladder volume assessment was performed: Prevoid volume: 127 mL. Postvoid volume: 17 mL. IMPRESSION: Normal assessment of the kidneys. Unremarkable assessment of the bladder. Post void residual volumemeasuring 17 mL's. Dinh Keane DRY STARCH SUPERVISOR IM US RENAL Final Result documented in this encounter Visit Diagnoses Diagnosis Screening for osteoporosis- Primary Special screening for osteoporosis Chronic bilateral low back pain without sciatica Straining to void Chronic bilateral low back pain without sciatica Straining to void Screening for osteoporosis Special screening for osteoporosis documented in this encounter Additional Health Concerns Assessment Noted Time PHQ-2 Depression Total Score: 0 09/02/19 10:16 AM EDT documented as of this encounter Care Teams Conductor Orchestra Relationship Specialty Start Date End Date Dinh Keane NP PCP - General Nurse Practitioner 01/29/23 documented as of this encounter Additional Source Comments The information contained in this document represents components of the legal health record. It is not the complete legal health record.[facility]
--- OUTSIDE RECORDS SUMMARY | 2024-11-02 11:21 | XMS_ITS | Encounter Summary ---
Author Organization [facility] Address [address] [place] [address] Phone Care Team Providers Care Security Control Center Operator Name Role Phone Jacquelyn Chandler MD Primary Care Provider [phone] Jessy Andersen NP Primary Care Provider Encounter Details Date Type Department Care Team (Latest Contact Info) Description 10/17/2019 Transcribe Orders [address] [place] [address] Seth Jeter MD [address] [place] [address] [email or web address] Abdominal pain, RLQ (Primary Dx) Social History [...] Pass [facility] - [address] [place] [address] 11/07/2024 11:30 AM EDT Office Visit [facility] [address] [place] [address] Brooke Pressley MD [address] [address] Kim Braun, PT [address] [place] [address] 11/14/2024 11:30 AM EDT Office Visit [address] [address] Brooke Pressley MD [address] [address] Kim Braun, PT [address] [place] [address] 11/21/2024 11:30 AM EDT Office Visit [address] [address] Brooke Pressley MD [address] [address] Kim Braun, PT [address] [place] [address] 11/28/2024 11:30 AM EDT Office Visit [address] [address] Brooke Pressley MD [address] [address] Kim Braun, PT [address] [place] [address] 05/10/2025 9:15 AM EDT Appointment [address] [place] [address] Jessy Andersen NP [address] [place] [address] documented as of this encounter Results * Creatinine/eGFR (10/17/2019 3:24 PM EDT) CREATININE 1.00 0.5 - 1.5 mg/dL [facility] EGFR 60 >59 mL/min/1.7 3m2 [facility] Comment:Estimated glomerular filtration rate calculated using the CKD-EPI equation. Blood 10/17/2019 3:24 PM EDT 10/17/2019 3:26 PM EDT us Seth Jeter MD LAB BLOOD ORDERABLES Final R esult Performing Organization Address [facility] Co de Phone Number [address] [address] * BUN (10/17/2019 3:24 PM EDT) BUN 18 6 - 19 mg/dL [facility] Blood 10/17/2019 3:24 PM EDT 10/17/2019 3:26 PM EDT Seth Jeter MD LAB BLOOD ORDERABLES Final R esult Performing Organization Address City/[facility] Co de Phone Number [address] [address] documented in this encounter Visit Diagnoses Diagnosis Abdominal pain, RLQ- Primary documented in this encounter Additional Health Concerns Infection Onset Date Last Indicated Resolved Time CoV-Risk 12/21/2021 12/21/2021 01/01/2022 1:22 AM EDT documented as of this encounter Care Teams Security Control Center Operator Relationship Specialty Start Date End Date Jacquelyn Chandler MD [address] [place] [address] [place] [address] [email or web address] PCP - General Internal Medicine 12/01/17 01/28/23 Jessy Andersen NP [address] [place] [address] PCP - General Nurse Practitioner 01/29/23 documented as of this encounter Additional Source Comments The information contained in this document represents components of the legal health record. It is not the complete legal health record.[facility]
--- OUTSIDE RECORDS SUMMARY | 2024-11-02 11:22 | XMS_ITS | Encounter Summary ---
Author Organization [facility] Address [address] [place] [address] [place] [address] Phone Care Team Providers Care Farmworker Turkey [employer] Name Role Phone Jacquelyn Chandler MD Primary Care Provider [phone] [facility] Primary Care Provider Encounter Details Date Type Department Care Team (Late st Contact Info) Description 01/06/2020 Transcribe Orders [address] [place] [address] Taqueria Govea MD [facility], [address] [place] [address] Social History Tobacco Use Types Packs/Day Years [...] st Contact Info) Description 09/28/2024 Procedure Pass [address] [place] [address] 11/07/2024 11:30 AM EDT Office Visit [address] [address] Brooke Pressley MD [address] [address] Kim Braun, PT [address] [place] [address] [email or web address] 11/14/2024 11:30 AM EDT Office Visit [address] [address] Brooke Pressley MD [address] [address] Kim Braun, PT [address] [place] [address] [email or web address] 11/21/2024 11:30 AM EDT Office Visit [facility] [address] [place] [address] Brooke Pressley MD [address] [address] Kim Braun, PT [address] [place] [address] [email or web address] 11/28/2024 11:30 AM EDT Office Visit [address] [address] Brooke Presslye MD [address] [address] Kim Braun, PT [address] [place] [address] [email or web address] 05/10/2025 9:15 AM EDT Appointment [address] [place] [address] [facility] [address] [place] [address] documented as of this encounter Visit Diagnoses Not on filedocumented in this encounter Additional Health Concerns Infection Onset Date Last Indicated Resolved Time CoV-Risk 12/21/2021 12/21/2021 01/01/2022 1:22 AM EDT documented as of this encounter Care Teams Farmworker [employer] Relationship Specialty Start Date End Date Jacquelyn Chandler MD [address] [place], [place] [address] [address] [email or web address] PCP - General Internal Medicine 12/01/17 01/28/23 Jessy Andersen NP [address] [place] [address] PCP - General Nurse Practitioner 01/29/23 documented as of this encounter Additional Source Comments The information contained in this document represents components of the legal health record. It is not the complete legal health record.[facility]
--- OUTSIDE RECORDS SUMMARY | 2024-11-02 11:22 | XMS_ITS | Encounter Summary ---
Author Organization [facility] Address [address] [place] [address] Phone Care Team Providers Care Marketing Mgr Name Role Phone Jacquelyn Chandler MD Primary Care Provider Jessy Andersen NP Primary Care Provider Encounter Details Date Type Department Care Team (Late Contact Info) Description 12/15/2017 Ancillary Orders [facility] [address] [place] [address] System, Provider Not In, [facility] [address] [address] Social History Tobacco Use Types Packs/Day Years Used Date Smoking Tobacco: Never Smokeless Tobacco: Never Alcohol Use Standard Drinks/Week Comments No 0 (1 standard drink = 0.6 oz pur e alcohol) Comments Unknown Sex and Gender Information Value Date Recorded Sex Assigned at Female 08/08/2018 10:11 PM EDT Legal Sex Female 9:53 PM EDT Gender Identity Female 08/08/2018 10:11 PM EDT Sexual Orientation Not on file 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 file Not on file Not on file documented as of this encounter Plan of Treatment Upcoming Encounters Date Type Department Care Team (Late Contact Info) Description 09/28/2024 Procedure Pass [facility] - [address] [place] [address] 11/07/2024 11:30 AM EDT Office Visit [address] [address] Brooke Pressley MD [address] [address] Kim Braun, PT [address] [place] [address] [email or web address] 11/14/2024 11:30 AM EDT Office Visit [facility] [address] [place] [address] Brooke Pressley MD [address] [address] Kim Braun, PT [address] [place] [address] [email or web address] 11/21/2024 11:30 AM EDT Office Visit [facility] [address] [place] [address] Brooke Pressley MD [address] [address] Kim Braun, PT [address] [place] [address] 11/28/2024 11:30 AM EDT Office Visit [facility] [address] [place] [address] Brooke Pressley MD [address] [address] Kim Braun, PT [address] [place] [address] 05/10/2025 9:15 AM EDT Appointment [facility] - [address] [place] [address] Jessy Andersen, AMBIKA [address] [place] [address] documented as of this encounter Results * Mammogram Outside (No Interpretation) (12/12/2016 12:00 AM EDT) Narrative SYSTEMGENERATED, DOCUMENTATION - 12/15/2017 5:30 PM EDT This study is for PACS storage only and not for interpretation. us Provider Not In System PhD IMG OUTSIDE IMAGING W /OUT INTERPRETATION Final Result * US Breast Outside (No Interpretation) (09/24/2016 12:00 AM EDT) Narrative SYSTEMGENERATED, DOCUMENTATION - 12/15/2017 5:30 PM EDT This study is for PACS storage only and not for interpretation. us Provider Not In System PhD IMG OUTSIDE IMAGING W /OUT INTERPRETATION Final Result * Mammogram Outside (No Interpretation) (12/07/2015 12:00 AM EDT) Narrative SYSTEMGENERATED, DOCUMENTATION - 12/15/2017 5:31 PM EDT This study is for PACS storage only and not for interpretation. us Provider Not In System PhD IMG OUTSIDE IMAGING W /OUT INTERPRETATION Final Result * Mammogram Outside (No Interpretation) (12/05/2014 12:00 AM EDT) Narrative SYSTEMGENERATED, DOCUMENTATION - 12/15/2017 5:30 PM EDT This study is for PACS storage only and not for interpretation. us Provider Not In System PhD IMG OUTSIDE IMAGING W /OUT INTERPRETATION Final Result documented in this encounter Visit Diagnoses Not on filedocumented in this encounter Additional Health Concerns Infection Onset Date Last Indicated Resolved Time CoV-Risk 12/21/2021 12/21/2021 01/01/2022 1:22 AM EDT documented as of this encounter Care Teams Marketing Mgr Relationship Specialty Start Date End Date Jacquelyn Chandler MD [address] [place], [place] [address] [address] [email or web address] PCP - General Internal Medicine 12/01/17 01/28/23 Jessy Andersen NP [address] [place] [address] PCP - General Nurse Practitioner 01/29/23 documented as of this encounter Additional Source Comments The information contained in this document represents components of the legal health record. It is not the complete legal health record.[facility]
--- OUTSIDE RECORDS SUMMARY | 2024-11-02 11:22 | XMS_ITS | Encounter Summary ---
Author Organization [facility] Address [address] [place] [address] Phone Care Team Providers Care Plant Sprayer Name Role Phone Jacquelyn Chandler MD Primary Care Provider + [phone] Jessy Andersen NP Primary Care Provider Reason for Referral * MRI/CAT Scan - Closed Specialty Diagnoses / Procedures Referred By Gabriele canales Referred To Contact Radiology Diagnoses Memory loss Numbness Procedures MRI Brain Taqueria Aj MD Phone: tel: fax: [email or web address] Referral ID Status Reason Start Date Expiration Date Visits Re quested Visits Authorized [id number] Closed 01/09/2020 04/08/2020 1 1 Encounter Details Date Type Department Care Team (Latest Contact Info) Description 01/10/2020 Transcribe Orders Virtual Department [address] [place] [address] Taqueria jA MD [address] [place] [address], [address] [place], [place] [phone] [email or web address] Memory loss (Primary Dx); Numbness; TIA (transient ischemic attack) Social History Tobacco Use Types Packs/Day Years [...] Contact Info) Description 09/28/2024 Procedure Pass [facility] - [address] [place] [address] 11/07/2024 11:30 AM EDT Office Visit [facility] [address] [place] [address] Brooke Pressley MD [address] [address] Kim Braun, PT [address] [place] [address] 11/14/2024 11:30 AM EDT Office Visit [facility] [address] [place] [address] Brooke Pressley MD [address] [address] Kim Braun, PT 380 [place] [address] [email or web address] 11/21/2024 11:30 AM EDT Office Visit [address] [address] Brooke Pressley MD [address] [address] Kim Braun, PT 380 [place] [address] [email or web address] 11/28/2024 11:30 AM EDT Office Visit [facility] [address] [place] [address] Brooke Pressley MD 299 [facility] [address] [place] [address] Kim Braun, PT [address] [place] [address] [email or web address] 05/10/2025 9:15 AM EDT Appointment [address] [place] [address] Jessy Andersen, FISHING BOAT CAPTAIN [facility] [place] [address] documented as of this encounter Results * MRI BRAIN WITHOUT CONTRAST (01/20/2020 4:31 PM EST) Anatomical Region Laterality Modality Head Magnetic Resonan ce 01/20/2020 4:37 PM EST Impressions 01/20/2020 4:47 PM EST No significant intracranial abnormalities. Narrative 01/20/2020 4:47 PM EST HISTORY: Memory loss for one year. COMPARISON: None. TECHNIQUE: Exam performed on a 1.5 Rea high-field MRI scanner. Axial T1, T2, T2*, T2 FLAIR and diffusion-weighted imaging with ADC map, sagittal T1 sequences were obtained. FINDINGS: Artifact from dental hardware degrades image quality. No evidence of intracranial hemorrhage, hematoma or mass. Garcia-white matter differentiation is preserved. No signs of acute infarction. No suspicious white matter signal abnormalities. The ventricles are midline and do not appear dilated. The basal cisterns are patent. There are normal flow voids at the base of the skull. Visualized paranasal sinuses are clear. Small amount of fluid within mastoid air cells on the right. Procedure Note Seth Gilmore MD - 01/20/2020 HISTORY: Memory loss for one year. COMPARISON: None. TECHNIQUE: Exam performed on a 1.5 Rea high-field MRI scanner. AxialT1, T2, T2*, T2 FLAIR and diffusion-weighted imaging with ADC map,sagittal T1 sequences were obtained. FINDINGS: Artifact from dental hardware degrades image quality. No evidence of intracranial hemorrhage, hematoma or mass. Garcia-whitematter differentiation is preserved. No signs of acute infarction. Nosuspicious white matter signal abnormalities. The ventricles are midline and do not appear dilated. The basal cisternsare patent. There are normal flow voids at the base of the skull. Visualized paranasal sinuses are clear. Small amount of fluid withinmastoid air cells on the right. IMPRESSION: No significant intracranial abnormalities. us Taqueria Aj MD IMG MR HEAD/NECK Final Resul t * US Carotid Duplex Complete (Bilateral) (01/20/2020 4:03 PM EST) Anatomical Region Laterality Modality Heart, Thoracic Vasculature, Neck Ultrasound 01/20/2020 4:0 8 PM EST Impressions 01/20/2020 4:11 PM EST 1. Moderate bilateral internal carotid artery stenosis left greater than right (50-69%). 2. Bilateral antegrade vertebral artery flow. Narrative 01/20/2020 4:11 PM EST COMPARISON: None. CAROTID ULTRASOUND FINDINGS: RIGHT: Peak external carotid artery: 249 cm/sec Peak vertebral: 71 cm/sec and antegrade Carotid artery morphology: No plaque identified. Peak common carotid artery: 117/32 cm/sec Peak internal carotid artery: 143/51 cm/sec Normal peak systolic ratio. LEFT: Peak external carotid artery: 163 cm/sec Peak vertebral: 67 cm/sec and antegrade Carotid artery morphology: Minimal mixed plaque in the bulb. Peak common carotid artery: 140/35 cm/sec Peak internal carotid artery: 191/65 cm/sec Normal peak systolic ratio. Any stenosis measurement is relative to the distal ICA diameters. Procedure Note Dylan Sanderson MD - 01/20/2020 COMPARISON: None. CAROTID ULTRASOUND FINDINGS: RIGHT: Peak external carotid artery: 249 cm/sec Peak vertebral: 71 cm/sec and antegrade Carotid artery morphology: No plaque identified. Peak common carotid artery: 117/32 cm/sec Peak internal carotid artery: 143/51 cm/sec Normal peak systolic ratio. LEFT: Peak external carotid artery: 163 cm/sec Peak vertebral: 67 cm/sec and antegrade Carotid artery morphology: Minimal mixed plaque in the bulb. Peak common carotid artery: 140/35 cm/sec Peak internal carotid artery: 191/65 cm/sec Normal peak systolic ratio. Any stenosis measurement is relative to the distal ICA diameters. IMPRESSION: 1. Moderate bilateral internal carotid artery stenosis left greater thanright (50-69%). 2. Bilateral antegrade vertebral artery flow. us Taqueria Aj MD CV US NEUROVASCULAR Final Re sult documented in this encounter Visit Diagnoses Diagnosis Memory loss- Primary Numbness Disturbance of skin sensation TIA (transient ischemic attack) Unspecified transient cerebral ischemia TIA (transient ischemic attack) Unspecified transient cerebral ischemia Memory loss Numbness Disturbance of skin sensation documented in this encounter Additional Health Concerns Infection Onset Date Last Indicated Resolved Time CoV-Risk 12/21/2021 12/21/2021 01/01/2022 1:22 AM EDT documented as of this encounter Care Teams Plant Sprayer Relationship Specialty Start Date End Date Jacquelyn Chandler MD [address] [place] [address] PCP - General Internal Medicine 12/01/17 01/28/23 Jessy Andersen NP [address] [place] [address] PCP - General Nurse Practitioner 01/29/23 documented as of this encounter Additional Source Comments The information contained in this document represents components of the legal health record. It is not the complete legal health record.[facility]
--- OUTSIDE RECORDS SUMMARY | 2024-11-02 11:22 | XMS_ITS | Encounter Summary ---
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 Not on file Not on file documented as of this encounter Plan of Treatment Upcoming Encounters Date Type Department Care Team (Late st Contact Info) Description 09/28/2024 Procedure Pass [place] [address] [place] [address] 11/07/2024 11:30 AM EDT Office Visit [facility] [address] [place] [address] Brooke Pressley MD [address] [address] Kim Braun, PT 380 [place] [address] 11/14/2024 11:30 AM EDT Office Visit [facility] [address] [place] [address] Brooke Pressley MD [address] [address] Kim Braun, PT 380 [place] [address] 11/21/2024 11:30 AM EDT Office Visit [facility] [address] [place] [address] Brooke Pressley MD [address] [address] Kim Braun, PT 380 [place] [address] 11/28/2024 11:30 AM EDT Office Visit [address] [address] Brooke Pressley MD [address] [address] Kim Braun, PT 380 [place] [address] 05/10/2025 9:15 AM EDT Appointment [place] [address] [place] [address] Jessy Andersen, CEMENT SACK BREAKER [address] [place] [address] documented as of this encounter Results * BI MAMMOGRAM SCREENING WITH TOMOSYNTHESIS WITH CAD (BILATERAL) (01/12/2018 4:28 PM EST) Anatomical Region Laterality Modality Breast Left, Breast Right, Breast Bilateral Bila teral Mammography 01/13/2018 9:07 AM EST Impressions 01/13/2018 9:09 AM EST No mammographic change indicative of malignancy. Routine screening is recommended. BI-RADS CATEGORY: 1 - Negative. DENSITY: There are scattered fibroglandular densities. POS -CDHMAMA Narrative 01/13/2018 9:09 AM EST Bilateral full-field digital screening mammography is obtained and read in conjunction with computer-aided detection. Tomosynthesis as well as 2-D C view imaging of both breasts in two planes also obtained. Comparison made to multiple prior, most recent 12/12/2016, and most remote 12/05/2014. No dominant mass, architectural distortion, worrisome asymmetry, or suspicious calcification is identified. No skin or nipple finding of concern is appreciated. Procedure Note Madie Caal MD - 01/13/2018 Bilateral full-field digital screening mammography is obtained and read inconjunction with computer-aided detection. Tomosynthesis as well as 2-D Cview imaging of both breasts in two planes also obtained. Comparison madeto multiple prior, most recent 12/12/2016, and most remote 12/05/2014. No dominant mass, architectural distortion, worrisome asymmetry, orsuspicious calcification is identified. No skin or nipple finding ofconcern is appreciated. IMPRESSION: No mammographic change indicative of malignancy. Routine screening isrecommended. BI-RADS CATEGORY: 1 - Negative. DENSITY: There are scattered fibroglandular densities. POS -CDHMAMA Jacquelyn Chandler MD IMG MG EXAMS Final Result documented in this encounter Visit Diagnoses Diagnosis Visit for screening mammogram Visit for screening mammogram documented in this encounter Additional Health Concerns Infection Onset Date Last Indicated Resolved Time CoV-Risk 12/21/2021 12/21/2021 01/01/2022 1:22 AM EDT documented as of this encounter Care Teams Chef Assistant Relationship Specialty Start Date End Date Jacquelyn Chandler MD [address] [place] [address] PCP - General Internal Medicine 12/01/17 01/28/23 Jessy Andersen NP [address] [place] [address] PCP - General Nurse Practitioner 01/29/23 documented as of this encounter Additional Source Comments The information contained in this document represents components of the legal health record. It is not the complete legal health record.[facility]
--- OUTSIDE RECORDS SUMMARY | 2024-11-02 11:22 | XMS_ITS | Encounter Summary ---
Author Organization [facility] Address [address] [place] [address] Phone Care Team Providers Care Quality Control Inspector Name Role Phone Jacquelyn Chandler MD Primary Care Provider [phone] Jessy Andersen NP Primary Care Provider Encounter Details Date Type Department Care Team (Late st Contact Info) Description 01/10/2020 Procedure Pass [address] [address] Social History Tobacco Use Types Packs/Day Years [...] Contact Info) Description 09/28/2024 Procedure Pass [facility] - [address] [place] [address] 11/07/2024 11:30 AM EDT Office Visit [address] [address] Brooke Pressley MD [address] [address] Kim Braun, PT [address] [place] [address] [email or web address] 11/14/2024 11:30 AM EDT Office Visit [facility] [address] [place] [address] Brooke rPessley MD [address] [address] Kim Braun, PT [address] [place] [address] [email or web address] 11/21/2024 11:30 AM EDT Office Visit [address] [address] Brooke Pressley MD [address] [address] Kim Braun, PT [address] [place] [address] [email or web address] 11/28/2024 11:30 AM EDT Office Visit [address] [address] Brooke Pressley MD [address] [address] Kim Braun, PT [address] [place] [address] [email or web address] 05/10/2025 9:15 AM EDT Appointment [facility] - [address] [place] [address] Jessy Andersen, AMBIKA [facility] [place] [address] documented as of this encounter Visit Diagnoses Not on filedocumented in this encounter Additional Health Concerns Infection Onset Date Last Indicated Resolved Time CoV-Risk 12/21/2021 12/21/2021 01/01/2022 1:22 AM EDT documented as of this encounter Care Teams Quality Control Inspector Relationship Specialty Start Date End Date Jacquelyn Chandler MD [address] [place] [address] [email or web address] PCP - General Internal Medicine 12/01/17 01/28/23 Jessy Andersen NP [address] [place] [address] PCP - General Nurse Practitioner 01/29/23 documented as of this encounter Additional Source Comments The information contained in this document represents components of the legal health record. It is not the complete legal health record.[facility]
--- OUTSIDE RECORDS SUMMARY | 2024-11-02 11:22 | XMS_ITS | Encounter Summary ---
Author Organization [facility] Address [address] [place] [address] Phone Care Team Providers Care Enthone Solder Stripper Name Role Phone Jacquelyn Chandler MD Primary Care Provider Jessy Andersen NP Primary Care Provider Encounter Details Date Type Department Care Team (Latest Contact Info) Description 01/02/2020 Transcribe Orders [facility] [address] [place] [address] Geovani Kwan MD [address] [place] [address] Chest pain, unspecified type (Primary Dx) Social History Tobacco Use [...] st Contact Info) Description 09/28/2024 Procedure Pass [address] [place] [address] 11/07/2024 11:30 AM EDT Office Visit [facility] [address] [place] [address] Brooke Pressley MD [address] [address] Kim Braun, PT 380 [place] [address] 11/14/2024 11:30 AM EDT Office Visit [address] [address] Brooke Pressley MD [address] [address] Kim Braun, PT [address] [place] [address] 11/21/2024 11:30 AM EDT Office Visit [facility] [address] [place] [address] Brooke Pressley MD [address] [address] Kim Braun, PT 380 [place] [address] 11/28/2024 11:30 AM EDT Office Visit [address] [address] Brooke Pressley MD [address] [address] Kim Braun, PT [address] [place] [address] 05/10/2025 9:15 AM EDT Appointment [address] [place] [address] Jessy Andersen, AMBIKA [address] [place] [address] documented as of this encounter Results * CBC and differential (01/02/2020 8:42 AM EST) WBC 5.27 4.00 - 11.00 K/uL [facility] Comment:Note Reference Range updates to all CBC and Differential results. RBC 4.66 3.72 - 5.30 M/uL [facility] HGB 12.8 11.4 - 15.9 g/dL [facility] Comment:Note updated Referen ce Ranges for all CBC and Differential results. HCT 40.0 34.2 - 46.8 % [facility] PLT 270 140 - 430 K/uL [facility] MCV 85.8 78.0 - 97.0 fL [facility] MCH 27.5 25.0 - 33.0 pg [facility] MCHC 32.0 32.0 - 36.0 g/dL [facility] RDW 13.0 11.0 - 16.0 % [facility] MPV 11.2 8.4 - 12.8 fl [facility] NRBC 0.00 0 /100 WBCs [facility] ABSOLUTE NRBC 0.00 0 K/uL [facility] DIFF METHOD [employer] [facility] NEUTS 53.2 43.0 - 75.0 % [facility] LYMPHS 35.9 18.2 - 47.4 % [facility] MONOS 7.6 4.00 - 11.00 % [facility] EOS 2.1 0.0 - 8.0 % [facility] BASOS 0.8 0.0 - 2.0 % [facility] Granulocytes, immature (%) 0.4 0.0 - 0.9 % [facility] ABSOLUTE NEUTS 2.81 1.80 - 7.70 K/uL [facility] ABSOLUTE LYMPHS 1.89 1.00 - 3.10 K/uL [facility] ABSOLUTE MONOS 0.40 0.20 - 0.80 K/uL [facility] ABSOLUTE EOS 0.11 0.00 - 0.80 K/uL [facility] ABSOLUTE BASOS 0.04 0.00 - 0.09 K/uL [facility] Granulocytes, immature 0.02 0.00 - 0.05 K/uL [facility] Blood 01/02/2020 8:42 AM EST 01/02/2020 8:44 AM EST Geovani Kwan MD LAB BLOOD ORDERABLES Final R esult Performing Organization Address City/[facility]/ZIP Co de Phone Number [address] [address] * Basic metabolic panel (01/02/2020 8:42 AM EST) SODIUM 140 133 - 146 mmol/L [facility] CHLORIDE 103 96 - 108 mmol/L [facility] POTASSIUM 4.5 3.3 - 5.1 mmol/L [facility] CO2 28 21 - 35 mmol/L [facility] BUN 14 6 - 19 mg/dL [facility] CREATININE 1.00 0.5 - 1.5 mg/dL [facility] GLUCOSE 96 70 - 99 mg/dL [facility] CALCIUM 9.7 8.4 - 10.3 mg/dL [facility] EGFR 60 >59 mL/min/1.7 3m2 [facility] Comment:Estimated glomerular filtration rate calculated using the CKD-EPI equation. ANION GAP 14 10 - 20 mmol/L [facility] Blood 01/02/2020 8:42 AM EST 01/02/2020 8:44 AM EST Geovani Kwan MD LAB BLOOD ORDERABLES Final R esult Performing Organization Address City/[facility]/ZIP Co de Phone Number [address] [address] documented in this encounter Visit Diagnoses Diagnosis Chest pain, unspecified type- Primary documented in this encounter Additional Health Concerns Infection Onset Date Last Indicated Resolved Time CoV-Risk 12/21/2021 12/21/2021 01/01/2022 1:22 AM EDT documented as of this encounter Care Teams Enthone Solder Stripper Relationship Specialty Start Date End Date Jacquelyn Chandler MD [address] [place] [address] [email or web address] PCP - General Internal Medicine 12/01/17 01/28/23 Jessy Andersen NP [address] [place] [address] PCP - General Nurse Practitioner 01/29/23 documented as of this encounter Additional Source Comments The information contained in this document represents components of the legal health record. It is not the complete legal health record.[facility]
--- OUTSIDE RECORDS SUMMARY | 2024-11-02 11:22 | XMS_ITS | Encounter Summary ---
Author Organization [facility] Address [address] [place] [address] Phone Care Team Providers Care Unit Secy Name Role Phone Jacquelyn Chandler MD Primary Care Provider Jessy Andersen NP Primary Care Provider Encounter Details Date Type Department Care Team (Late st Contact Info) Description 12/24/2019 Procedure Pass [address] [place] [address] Social History Tobacco Use Types Packs/Day Years [...] st Contact Info) Description 09/28/2024 Procedure Pass [address] [place] [address] 11/07/2024 11:30 AM EDT Office Visit [facility] [address] [place] [address] Brooke Pressley MD [address] [address] Kim Braun, PT [address] [place] [address] 11/14/2024 11:30 AM EDT Office Visit [facility] [address] [place] [address] Brooke Pressley MD [address] [address] Kim Braun, PT [address] [place] [address] 11/21/2024 11:30 AM EDT Office Visit [address] [address] Brooke Pressley MD [address] [address] Kim Braun, PT [address] [place] [address] 11/28/2024 11:30 AM EDT Office Visit [address] [address] Brooke Pressley MD [address] [address] Kim Braun, PT [address] [place] [address] 05/10/2025 9:15 AM EDT Appointment [facility] - [address] [place] [address] Jessy Andersen, AMBIKA [address] [place] [address] documented as of this encounter Visit Diagnoses Not on filedocumented in this encounter Additional Health Concerns Infection Onset Date Last Indicated Resolved Time CoV-Risk 12/21/2021 12/21/2021 01/01/2022 1:22 AM EDT documented as of this encounter Care Teams Unit Secy Relationship Specialty Start Date End Date Jacquelyn Chandler MD [address] [place] [address] [email or web address] PCP - General Internal Medicine 12/01/17 01/28/23 Jessy Andersen NP [address] [place] [address] PCP - General Nurse Practitioner 01/29/23 documented as of this encounter Additional Source Comments The information contained in this document represents components of the legal health record. It is not the complete legal health record.[facility]
--- OUTSIDE RECORDS SUMMARY | 2024-11-02 11:22 | XMS_ITS | Encounter Summary ---
Author Organization [facility] Address [address] [place] [address] Phone Care Team Providers Care Rand Tacker Name Role Phone Jacquelyn Chandler MD Primary Care Provider [phone] Jessy Andersen NP Primary Care Provider Encounter Details Date Type Department Care Team (Late Contact Info) Description 03/25/2018 Ancillary Orders Virtual Department [address] [place] [address] Jacquelyn Chandler MD [address] [place] [address] Low back pain, unspecified back pain laterality, unspecified chronicity, with sciatica presence unspecified; Right knee pain, unspecified chronicity Social History Tobacco Use Types Packs/Day Years [...] 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 file Not on file Not on file documented as of this encounter Plan of Treatment Upcoming Encounters Date Type Department Care Team (Late st Contact Info) Description 09/28/2024 Procedure Pass [facility] - [address] [place] [address] 11/07/2024 11:30 AM EDT Office Visit [address] [address] Brooke Pressley MD [address] [address] Kim Braun, PT [address] [place] [address] 11/14/2024 11:30 AM EDT Office Visit [address] [address] Brooke Pressley MD [address] [address] Kim Braun, PT [address] [place] [address] 11/21/2024 11:30 AM EDT Office Visit [address] [address] Brooke Pressley MD [address] [address] Kim Braun, PT [address] [place] [address] 11/28/2024 11:30 AM EDT Office Visit [address] [address] Brooke Pressley MD [address] [address] iKm Braun, PT [address] [place] [address] 05/10/2025 9:15 AM EDT Appointment [address] [place] [address] Jessy Andersen NP [address] [place] [address] documented as of this encounter Results * XR KNEE 4 OR MORE VIEWS (RIGHT) (03/29/2018 3:47 PM EST) Anatomical Region Laterality Modality Knee Right Radiographic Yolie ging 03/29/2018 4:09 PM EST Impressions 03/29/2018 4:12 PM EST Mild degenerative changes bilaterally. Chondrocalcinosis. POS - [id number] Narrative 03/29/2018 4:12 PM EST HISTORY: Right knee pain. COMPARISON: None. VIEWS: Standing AP view of both knees and five views of the right knee, including a sunrise view, performed. FINDINGS: Joint spaces at the right knee are well-maintained. There is very mild marginal spurring at all three compartments. No evidence of erosions. No fractures, subluxations or dislocations. No suspicious lytic or blastic lesions within the bones. Enthesopathy at the insertion of the quadriceps tendon on the patella. No definite joint effusion. Faint calcification of the menisci. No evidence of significant joint space narrowing at the left knee. There is evidence of mild spurring and calcification of the menisci. Procedure Note Seth Silva MD - 03/29/2018 HISTORY: Right knee pain. COMPARISON: None. VIEWS: Standing AP view of both knees and five views of the right knee,including a sunrise view, performed. FINDINGS: Joint spaces at the right knee are well-maintained. There is very mildmarginal spurring at all three compartments. No evidence of erosions. Nofractures, subluxations or dislocations. No suspicious lytic or blasticlesions within the bones. Enthesopathy at the insertion of the quadricepstendon on the patella. No definite joint effusion. Faint calcificationof the menisci. No evidence of significant joint space narrowing at the left knee. Thereis evidence of mild spurring and calcification of the menisci. IMPRESSION: Mild degenerative changes bilaterally. Chondrocalcinosis. POS - [id number] Jacquelyn Chandler MD G XR LOWER EXTREMITY Final Result * XR LUMBOSACRAL SPINE 4 OR MORE VIEWS (03/29/2018 3:46 PM EST) Anatomical Region Laterality Modality L-spine Radiographic Yolie ging 03/29/2018 4:19 PM EST Impressions 03/29/2018 4:21 PM EST Mild degenerative changes. No compression fractures. POS - [id number] Narrative 03/29/2018 4:21 PM EST HISTORY: Lower back pain since injury. COMPARISON: None. VIEWS: AP, lateral and bilateral oblique views. FINDINGS: No compression fractures or subluxations. Mild degenerative endplate changes. Mild facet arthropathy at L4-L5. No definite SI joint abnormalities. Procedure Note Seth Silva MD - 03/29/2018 HISTORY: Lower back pain since injury. COMPARISON: None. VIEWS: AP, lateral and bilateral oblique views. FINDINGS: No compression fractures or subluxations. Mild degenerative endplatechanges. Mild facet arthropathy at L4-L5. No definite SI jointabnormalities. IMPRESSION: Mild degenerative changes. No compression fractures. POS - [id number] Jacquelyn HOPE XR SPINE Final Result documented in this encounter Visit Diagnoses Diagnosis Low back pain, unspecified back pain laterality, unspecified chronicity, with sciatica presence unspecified Right knee pain, unspecified chronicity Low back pain, unspecified back pain laterality, unspecified chronicity, with sciatica presence unspecified Right knee pain, unspecified chronicity Low back pain, unspecified back pain laterality, unspecified chronicity, with sciatica presence unspecified Right knee pain, unspecified chronicity documented in this encounter Additional Health Concerns Infection Onset Date Last Indicated Resolved Time CoV-Risk 12/21/2021 12/21/2021 01/01/2022 1:22 AM EDT documented as of this encounter Care Teams Rand Tacker Relationship Specialty Start Date End Date Jacquelyn Chandler MD [address] [place] [phone] [email or web address] PCP - General Internal Medicine 12/01/17 01/28/23 Jessy Andersen NP [address] [place] [address] PCP - General Nurse Practitioner 01/29/23 documented as of this encounter Additional Source Comments The information contained in this document represents components of the legal health record. It is not the complete legal health record.[facility]
--- OUTSIDE RECORDS SUMMARY | 2024-11-02 11:22 | XMS_ITS | Encounter Summary ---
Author Organization [facility] Address [address] [place] [address] Phone Care Team Providers Care Snuff Maker Name Role Phone Jacquelyn Chandler MD Primary Care Provider Jessy Andersen NP Primary Care Provider Encounter Details Date Type Department Care Team (Latest Contact Info) Description 02/03/2018 Transcribe Orders [address] [place] [address] Richa Leach, DONN [address] Gray, Ilya. [address] [place] [address] [email or web address] Abdominal pain, unspecified abdominal location (Primary Dx) Social History Tobacco Use Types [...] Industry Job Start Date Job End Date [employer] in [place] Not on file Not on file Not on file documented as of this encounter Plan of Treatment Upcoming Encounters Date Type Department Care Team (Late st Contact Info) Description 09/28/2024 Procedure Pass [facility] - [address] [place] [address] 11/07/2024 11:30 AM EDT Office Visit [address] [address] Brooke Pressley MD [address] [address] Kim Braun, PT [address] [place] [address] [email or web address] 11/14/2024 11:30 AM EDT Office Visit [address] [address] Brooke Pressley MD [address] [address] Kim Braun, PT [address] [place] [address] [email or web address] 11/21/2024 11:30 AM EDT Office Visit [address] [address] Brooke Pressley MD [address] [address] Kim Braun, PT [address] [place] [address] [email or web address] 11/28/2024 11:30 AM EDT Office Visit [address] [address] Brooke Pressley MD [address] [address] Kim Braun, PT [address] [place] [address] 05/10/2025 9:15 AM EDT Appointment [facility] - [address] [place] [address] Jessy Andersen NP [address] [place] [address] documented as of this encounter Results * Immunoglobulin A (02/03/2018 8:43 AM EST) IgA 220 70 - 400 mg/dL [facility] Blood 02/03/2018 8:43 AM EST 02/03/2018 8:50 AM EST us Richa Leach PA-C LAB BLOOD ORDERABLES Final Resu lt Performing Organization Address City/[facility]/ZIP Co de Phone Number [address] [address] * C-Reactive Protein (02/03/2018 8:43 AM EST) C REACTIVE PROTEIN 3.6 0.0 - 4.0 mg/L [facility] Blood 02/03/2018 8:43 AM EST 02/03/2018 8:50 AM EST us Richa Leach PA-C LAB BLOOD ORDERABLES Final Resu lt [address] [address] * Comprehensive metabolic panel (02/03/2018 8:43 AM EST) SODIUM 140 133 - 146 mmol/L [facility] POTASSIUM 4.3 3.3 - 5.1 mmol/L [facility] CHLORIDE 103 96 - 108 mmol/L [facility] CO2 25 21 - 35 mmol/L [facility] BUN 15 6 - 19 mg/dL [facility] CREATININE 1.00 0.5 - 1.5 mg/dL [facility] GLUCOSE 88 70 - 99 mg/dL [facility] ALBUMIN 4.5 3.9 - 4.8 g/dL [facility] TOTAL PROTEIN 8.0 6.5 - 8.0 g/dL [facility] CALCIUM 9.9 8.4 - 10.3 mg/dL [facility] ALKALINE PHOSPHATASE 67 39 - 117 U/L [facility] TOTAL BILIRUBIN 0.5 0.0 - 1.2 mg/dL [facility] AST 26 0 - 37 U/L [facility] ALT 28 0 - 40 U/L [facility] GLOBULIN 3.5 1 - 4.8 g/dL [facility] EGFR 61 >59 mL/min/1.7 3m2 [facility] Comment:If patient is black, multiply result by 1.159. Estimated glomerular filtration rate calculated using the CKD-EPI equation. ANION GAP 16 10 - 20 mmol/L [facility] Blood 02/03/2018 8:43 AM EST 02/03/2018 8:50 AM EST us Richa Leach PA-C LAB BLOOD ORDERABLES Final Resu lt Performing Organization Address City/State/[facility] Co de Phone Number [address] [address] * (ABNORMAL) CBC (02/03/2018 8:43 AM EST) WBC 5.96 3.40 - 11.20 K/uL [facility] RBC 4.86(H) 3.80 - 4.80 M/uL [facility] HGB 13.2 12.0 - 15.0 g/dL [facility] HCT 41.7 36.0 - 46.0 % [facility] PLT 274 130 - 400 K/uL [facility] MCV 85.8 79.0 - 98.0 fL [facility] MCH 27.2 27.0 - 34.8 pg [facility] MCHC 31.7 31.5 - 36.0 g/dL [facility] RDW 13.6 10.8 - 14.6 % [facility] MPV 11.7 9.4 - 12.4 fl [facility] NRBC 0.00 0.00 /100 WBCs [facility] ABSOLUTE NRBC 0.00 0.00 K/uL [facility] Blood 02/03/2018 8:43 AM EST 02/03/2018 8:50 AM EST Richa Leach PA-C LAB BLOOD ORDERABLES Final Resu lt [facility] [address] [place] [address] documented in this encounter Visit Diagnoses Diagnosis Abdominal pain, unspecified abdominal location- Primary documented in this encounter Additional Health Concerns Infection Onset Date Last Indicated Resolved Time CoV-Risk 12/21/2021 12/21/2021 01/01/2022 1:22 AM EDT documented as of this encounter Care Teams Snuff Maker Relationship Specialty Start Date End Date Jacquelyn Chandler MD [address] [place] [phone] [email or web address] PCP - General Internal Medicine 12/01/17 01/28/23 Jessy Andersen NP [address] [place] [address] PCP - General Nurse Practitioner 01/29/23 documented as of this encounter Additional Source Comments The information contained in this document represents components of the legal health record. It is not the complete legal health record.[facility]
--- OUTSIDE RECORDS SUMMARY | 2024-11-02 11:23 | XMS_ITS | Encounter Summary ---
Author Organization [facility] Address [address] [place] [address] Phone Care Team Providers Care [employer] Liaison Officer Name Role Phone Jacquelyn Chandler MD Primary Care Provider [phone] Jessy Andersen NP Primary Care Provider Encounter Details Date Type Department Care Team (Late Contact Info) Description 03/29/2018 Ancillary Orders Virtual Department [address] [place] [address] Jacquelyn Chandler MD [address] [place] [address] Low back pain, unspecified back pain laterality, [...] Industry Job Start Date Job End Date [employer] in [place] Not on file Not on file Not on file documented as of this encounter Plan of Treatment Upcoming Encounters Date Type Department Care Team (Late st Contact Info) Description 09/28/2024 Procedure Pass [facility] - [address] [place] [address] 11/07/2024 11:30 AM EDT Office Visit [address] [address] Brooke Pressley MD [address] [address] Kim Braun, PT [address] [place] [address] 11/14/2024 11:30 AM EDT Office Visit [address] [address] Brooke Pressley MD [address] [address] Kim Braun, PT [address] [place] [address] 11/21/2024 11:30 AM EDT Office Visit [address] [address] Brooke Pressley MD [address] [address] Kim Braun, PT [address] [place] [address] 11/28/2024 11:30 AM EDT Office Visit [address] [address] Brooke Pressley MD [address] [address] Kim Braun, PT [address] [place] [address] 05/10/2025 9:15 AM EDT Appointment [address] [place] [address] Jessy Andersen NP [address] [place] [address] documented as of this encounter Results * XR Knee Standing (Bilateral, Single View Only) (03/29/2018 3:48 PM EST) Anatomical Region Laterality Modality Knee Right, Knee Bilateral Radio graphic Imaging 03/29/2018 4:09 PM EST Impressions 03/29/2018 4:12 PM EST Mild degenerative changes bilaterally. Chondrocalcinosis. POS - [id number] Narrative 03/29/2018 4:12 PM EST HISTORY: Right [...] Mild degenerative changes bilaterally. Chondrocalcinosis. POS - [id number] Jacquelyn Chandler MD IMG XR LOWER EXTREMITY Final Result documented [...] documented as of this encounter Care Teams [employer] Liaison Officer Relationship Specialty Start Date End Date Jacquelyn Chandler MD [address] [place] [phone] PCP - General Internal Medicine 12/01/17 01/28/23 Jessy Andersen NP [address] [place] [address] PCP - General Nurse Practitioner 01/29/23 documented as of this encounter Additional Source Comments The information contained in this document represents components of the legal health record. It is not the complete legal health record.[facility]
--- OUTSIDE RECORDS SUMMARY | 2024-11-02 11:23 | XMS_ITS | Encounter Summary ---
Author Organization [facility] Address [address] [place] [phone] Phone Care Team Providers Care Technical Operator Name Role Phone Jacquelyn Chandler MD Primary Care Provider Jessy Andersen NP Primary Care Provider Encounter Details Date Type Department Care Team (Late st Contact Info) Description 04/29/2018 Ancillary Orders [facility] X-Ray - [address] [place] [address] Jacquelyn Chandler MD [address] [place] [address] [email or web address] Cervicalgia Social History Tobacco Use Types Packs/Day Years [...] 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 Not on file documented as of this encounter Plan of Treatment Upcoming Encounters Date Type Department Care Team (Late st Contact Info) Description 09/28/2024 Procedure Pass [address] [place] [address] 11/07/2024 11:30 AM EDT Office Visit [address] [address] Brooke Pressley MD [address] [address] Kim Braun, PT [address] [place] [address] 11/14/2024 11:30 AM EDT Office Visit [address] [address] Brooke Pressley MD [address] [address] Kim Braun, PT [address] [place] [address] 11/21/2024 11:30 AM EDT Office Visit [facility] [address] [place] [address] Brooke Pressley MD [address] [address] Kim Braun, PT [address] [place] [address] 11/28/2024 11:30 AM EDT Office Visit [address] [address] Brooke Pressley MD [address] [address] Kim Braun, PT [address] [place] [address] 05/10/2025 9:15 AM EDT Appointment [address] [place] [address] [facility] HospitalJessy, BAR CATCHER [address] [place] [address] documented as of this encounter Results * XR CERVICAL SPINE 4-5 VIEWS (04/29/2018 11:11 AM EST) Anatomical Region Laterality Modality C-spine Radiographic Yolie ging 04/29/2018 11:5 4 AM EST Impressions 04/29/2018 11:56 AM EST Mild discogenic endplate changes C5-T1. Normal cervical spine alignment. POS - [id number] Narrative 04/29/2018 11:56 AM EST XR CERVICAL SPINE 4-5 VIEWS HISTORY: pain in neck with radiation to left shoulder TECHNIQUE: AP, lateral, open-mouth odontoid, bilateral oblique views cervical spine. COMPARISON: None FINDINGS: Vertebrae are normal in height and alignment. Mild degenerative disc space narrowing with endplate osteophytes at C5-C6, C6-C7 and C7-T1. Normal prevertebral soft tissue outline. Normal facet joint alignment. The odontoid process is normal. No significant bony neural foraminal stenosis. Procedure Note Indy Barker MD - 04/29/2018 XR CERVICAL SPINE 4-5 VIEWS HISTORY: pain in neck with radiation to left shoulder TECHNIQUE: AP, lateral, open-mouth odontoid, bilateral oblique viewscervical spine. COMPARISON: None FINDINGS: Vertebrae are normal in height and alignment. Mild degenerative disc space narrowing with endplate osteophytes at C5-C6,C6-C7 and C7-T1. Normal prevertebral soft tissue outline. Normal facetjoint alignment. The odontoid process is normal. No significant bonyneural foraminal stenosis. IMPRESSION: Mild discogenic endplate changes C5-T1. Normal cervical spine alignment. POS - [id number] Jacquelyn Chandler MD IMG XR SPINE Final Result documented in this encounter Visit Diagnoses Diagnosis Cervicalgia Cervicalgia documented in this encounter Additional Health Concerns Infection Onset Date Last Indicated Resolved Time CoV-Risk 12/21/2021 12/21/2021 01/01/2022 1:22 AM EDT documented as of this encounter Care Teams Technical Operator Relationship Specialty Start Date End Date Jacquelyn Chandler MD [address] [place] [phone] [email or web address] PCP - General Internal Medicine 12/01/17 01/28/23 Jessy Andersen NP [address] [place] [phone] PCP - General Nurse Practitioner 01/29/23 documented as of this encounter Additional Source Comments The information contained in this document represents components of the legal health record. It is not the complete legal health record.[facility]
--- OUTSIDE RECORDS SUMMARY | 2024-11-02 11:23 | XMS_ITS | Encounter Summary ---
Author Organization [facility] Address [address] [place] [address] Phone Care Team Providers Care Waste Cotton Cleaner Name Role Phone Jacquelyn Chandler MD Primary Care Provider Jessy Andersen NP Primary Care Provider Encounter Details Date Type Department Care Team (Latest Contact Info) Description 03/13/2020 Transcribe Orders [address] [place] [address] Jacquelyn Chandler MD [address] [place] [address] [email or web address] Hyperlipidemia, unspecified hyperlipidemia type (Primary Dx); Hypertension, unspecified type; Vitamin D deficiency, unspecified; Nonspecific elevation of levels of transaminase or lactic acid dehydrogenase (LDH) Social History Tobacco Use Types Packs/Day Years [...] st Contact Info) Description 09/28/2024 Procedure Pass [facility] - [address] [place] [address] 11/07/2024 11:30 AM EDT Office Visit [address] [address] Brooke Pressley MD [address] [address] Kim Braun, PT 380 [place] [address] 11/14/2024 11:30 AM EDT Office Visit [address] [address] Brooke Pressley MD [address] [address] Kim Braun, PT [address] [place] [address] 11/21/2024 11:30 AM EDT Office Visit [address] [address] Brooke Pressley MD [address] [address] Kim Braun, PT [address] [place] [address] 11/28/2024 11:30 AM EDT Office Visit [address] [address] Brooke Pressley MD [address] [address] Kim Braun, PT [address] [place] [address] 05/10/2025 9:15 AM EDT Appointment [facility] - [address] [place] [address] Jessy Andersen, AMBIKA [address] [place] [address] documented as of this encounter Results * (ABNORMAL) LFTs (hepatic panel) (03/13/2020 10:40 AM EST) ALKALINE PHOSPHATASE 73 39 - 117 U/L [facility] TOTAL BILIRUBIN 0.5 0.0 - 1.2 mg/dL [facility] DIRECT BILIRUBIN <0.2 0 - 0.3 mg/dL [facility] Bilirubin (Indirect) NOT CALCULATED 0 - 1.5 mg/dL [facility] AST 25 0 - 37 U/L [facility] ALT 15 0 - 40 U/L [facility] TOTAL PROTEIN 8.1(H) 6.5 - 8.0 g/dL [facility] ALBUMIN 4.5 3.9 - 4.8 g/dL [facility] GLOBULIN 3.6 1 - 4.8 g/dL [facility] A/G Ratio 1.25 1.00 - 4.80 RATIO [facility] Blood 03/13/2020 10:4 0 AM EST 03/13/2020 10:48 AM EST Jacquelyn Chandler MD LAB BLOOD ORDERABLES Final R esult Performing Organization Address City/State/[facility] Co de Phone Number [address] [address] * (ABNORMAL) 25-OH vitamin D (03/13/2020 10:40 AM EST) 25 OH VIT D (TOTAL) 24(L) 30 - 60 ng/mL [facility] Blood 03/13/2020 10:4 0 AM EST 03/13/2020 10:48 AM EST Jacquelyn Chandler MD LAB BLOOD ORDERABLES Final R esult Performing Organization Address City/[facility] Co de Phone Number [address] [address] * (ABNORMAL) CBC (03/13/2020 10:40 AM EST) WBC 4.81 4.00 - 11.00 K/uL [facility] Comment:Note Reference Range updates to all CBC and Differential results. RBC 4.77 3.72 - 5.30 M/uL [facility] HGB 13.0 11.4 - 15.9 g/dL [facility] Comment:Note updated Referen ce Ranges for all CBC and Differential results. HCT 41.2 34.2 - 46.8 % [facility] PLT 274 140 - 430 K/uL [facility] MCV 86.4 78.0 - 97.0 fL [facility] MCH 27.3 25.0 - 33.0 pg [facility] MCHC 31.6(L) 32.0 - 36.0 g/dL [facility] RDW 13.2 11.0 - 16.0 % [facility] MPV 10.7 8.4 - 12.8 fl [facility] NRBC 0.00 0 /100 WBCs [facility] ABSOLUTE NRBC 0.00 0 K/uL [facility] Blood 03/13/2020 10:4 0 AM EST 03/13/2020 10:48 AM EST Jacquelyn Chandler MD LAB BLOOD ORDERABLES Final R esult Performing Organization Address City/[facility]/ZIP Co de Phone Number [address] [address] * Basic metabolic panel (03/13/2020 10:40 AM EST) SODIUM 142 133 - 146 mmol/L [facility] CHLORIDE 104 96 - 108 mmol/L [facility] POTASSIUM 4.3 3.3 - 5.1 mmol/L [facility] CO2 28 21 - 35 mmol/L [facility] BUN 19 6 - 19 mg/dL [facility] CREATININE 1.00 0.5 - 1.5 mg/dL [facility] GLUCOSE 96 70 - 99 mg/dL [facility] CALCIUM 10.1 8.4 - 10.3 mg/dL [facility] EGFR 60 >59 mL/min/1.7 3m2 [facility] Comment:Estimated glomerular filtration rate calculated using the CKD-EPI equation. ANION GAP 14 10 - 20 mmol/L [facility] Blood 03/13/2020 10:4 0 AM EST 03/13/2020 10:48 AM EST Jacquelyn Chandler MD LAB BLOOD ORDERABLES Final R esult Performing Organization Address City/[facility]/ZIP Co de Phone Number [address] [address] * (ABNORMAL) Lipid panel (03/13/2020 10:40 AM EST) HDL 50 mg/dL [facility] Comment: Interpretation <40 mg/dL: Low HDL cholesterol (major risk factor for CHD) Greater than or equal to 60 mg/dL: High HDL cholesterol ( negative risk factor for CHD) HDL - cholesterol is affected by a number of factors, e.g. smoking, excerise, hormones, sex and age. CHOLESTEROL 229 0 - 240 mg/dL [facility] TRIGLYCERIDES 115 30 - 160 mg/dL [facility] LDL 156(H) 50 - 129 mg/dL [facility] Comment: LDL levels in terms of risk for coronary heart disease: <100 mg/dL: Optimal 100-129 mg/dL: Near or above optimal 130-159 mg/dL: Borderline high 160-189 mg/dL: High >190 mg/dL: Very High CARDIAC RISK RATIO 4.6(H) 3.3 - 4.4 [facility] Blood 03/13/2020 10:4 0 AM EST 03/13/2020 10:48 AM EST Jacquelyn Chandler MD LAB BLOOD ORDERABLES Final R esult Performing Organization Address City/[facility]/ZIP Co de Phone Number [address] [address] documented in this encounter Visit Diagnoses Diagnosis Hyperlipidemia, unspecified hyperlipidemia type- Primary Hypertension, unspecified type Vitamin D deficiency, unspecified Nonspecific elevation of levels of transaminase or lactic acid dehydrogenase (LDH) documented in this encounter Additional Health Concerns Infection Onset Date Last Indicated Resolved Time CoV-Risk 12/21/2021 12/21/2021 01/01/2022 1:22 AM EDT documented as of this encounter Care Teams Waste Cotton Cleaner Relationship Specialty Start Date End Date Jacquelyn Chandler MD [address] [place] [address] [email or web address] PCP - General Internal Medicine 12/01/17 01/28/23 Jessy Andersen NP [address] [place] [address] PCP - General Nurse Practitioner 01/29/23 documented as of this encounter Additional Source Comments The information contained in this document represents components of the legal health record. It is not the complete legal health record.[facility]
--- OUTSIDE RECORDS SUMMARY | 2024-11-02 11:23 | XMS_ITS | Encounter Summary ---
Author Organization [facility] Address [address] [facility] [address] [place] [address] Phone Care Team Providers Care Item Repair Manager Name Role Phone Rula Ramsey MD Primary Care Provider Jacquelyn Chandler MD Primary Care Provider Jessy Andersen NP Primary Care Provider Encounter Details Date Type Department Care Team (Late Contact Info) Description 07/14/2017 Transcribe Orders [facility] Specimen Processing [address] [place] [address] Karen Varela, [facility] [address] [facility] [address] [place] [address] [email or web address] Dysuria (Primary Dx) Social History Tobacco Use Types Packs/Day Years Used Date Smoking Tobacco: Never Assessed Comments Unknown Sex and Gender Information Value Date Recorded Sex Assigned at Female 08/08/2018 10:11 PM EDT Legal Sex Female 9:53 PM EDT Gender Identity Female 08/08/2018 10:11 PM EDT Sexual Orientation Not on file documented as of this encounter Plan of Treatment Upcoming Encounters Date Type Department Care Team ([facility] Contact Info) Description 09/28/2024 Procedure Pass [address] [place] [address] 11/07/2024 11:30 AM EDT Office Visit [facility] [address] [place] [address] Brooke Pressley MD [address] [address] Kim Braun, PT [address] [place] [address] [email or web address] 11/14/2024 11:30 AM EDT Office Visit [facility] [address] [place] [address] Brooke Pressley MD [address] [address] Kim Braun, PT [address] [place] [address] [email or web address] 11/21/[email or web address] 11:30 AM EDT Office Visit [facility] [address] [place] [address] Brooke Pressley MD [address] [address] Kim Braun, PT [address] [place] [address] [email or web address] 11/28/[email or web address] 11:30 AM EDT Office Visit [facility] [address] [place] [address] Brooke Pressley MD [address] [address] Kim Braun, PT [address] [place] [address] [email or web address] 05/10/2025 9:15 AM EDT Appointment [facility] - [address] [place] [address] Jessy Andersen, [employer] REPRESENTATIVE [address] [place] [address] documented as of this encounter Results * (ABNORMAL) Urine culture (07/14/2017 8:30 AM EDT) Specimen Source/ Description URINE URINE [facility] Special Requests None [facility] GRAM STAIN Moderate WBC'S , NO ORGANISMS SEEN [facility] Culture/Test 10,000 to 100,000 colony forming units per ml ESCHERICHIA COLI(A) [facility] Report Status 07/16/2017 FINAL [facility] ORGANISM ESCHERICHIA COLI [facility] Urine (Urine) 07/14/2017 8:3 0 AM EDT 07/14/2017 3:05 PM EDT Narrative Organism Antibiotic Method Susceptibility Escherichia coli Ampicillin [facility] METHOD <=2: Susceptible Escherichia coli Amoxicillin-clavulanate [facility] METHO D <=2: Susceptible Escherichia coli Ampicillin-sulbactam [facility] METHOD <=2: Susceptible Escherichia coli Cefazolin [facility] METHOD <=4: Susceptible Escherichia coli Cefepime [facility] METHOD <=1: Susceptible Escherichia coli Ceftazidime [facility] METHOD <=1: Susceptible Escherichia coli Ceftriaxone [facility] METHOD <=1: Susceptible Escherichia coli Ciprofloxacin [facility] METHOD <=0.25: Susceptible Escherichia coli Extended Spectrum B-lactamase [facility] METHOD Negative Escherichia coli Gentamicin [facility] METHOD <=1: Susceptible Escherichia coli Levofloxacin [facility] METHOD <=0.12: Susceptible Escherichia coli Nitrofurantoin [facility] METHOD <=16: Susceptible Escherichia coli Piperacillin-tazobactam [facility] METHO D <=4: Susceptible Escherichia coli Trimethoprim/sulfame thoxa zole [facility] METHOD <=20: Susceptible Comment:10,000 to 100,000 co lony forming units per ml ESCHERICHIA COLI us Karen Varela CNP MICROBIOLOGY - GENERAL O RDERABLES Final Result [facility] [address] [place] [address] documented in this encounter Visit Diagnoses Diagnosis Dysuria- Primary documented in this encounter Additional Health Concerns Infection Onset Date Last Indicated Resolved Time CoV-Risk 12/21/2021 12/21/2021 01/01/2022 1:22 AM EDT documented as of this encounter Care Teams Item Repair Manager Relationship Specialty Start Date End Date Rula Ramsey MD [address] [place] [address], [address] [place] [address] PCP - General Internal Medicine 05/18/17 11/30/17 Jacquelyn Chandler MD [address] [place] [address] PCP - General Internal Medicine 12/01/17 01/28/23 Jessy Andersen NP [address] [place] [address] PCP - General Nurse Practitioner 01/29/23 documented as of this encounter Additional Source Comments The information contained in this document represents components of the legal health record. It is not the complete legal health record.[facility]
--- OUTSIDE RECORDS SUMMARY | 2024-11-02 11:23 | XMS_ITS | Encounter Summary ---
Author Organization [facility] Address [address] [place] [address] Phone Care Team Providers Care Cardiac Exercise Specialist Name Role Phone Jacquelyn Chandler MD Primary Care Provider Jessy Andersen NP Primary Care Provider Encounter Details Date Type Department Care Team (Late st Contact Info) Description 05/10/2020 Ancillary Orders Virtual Department [address] [place] [address] Jacquelyn Chandler MD [address] [place] [phone] [email or web address] Pain in finger of left hand Social History Tobacco Use Types Packs/Day Years [...] st Contact Info) Description 09/28/2024 Procedure Pass [address] [place] [address] 11/07/2024 11:30 AM EDT Office Visit [facility] [address] [place] [address] Brooke Pressley MD [address] [address] Kim Braun, PT [address] [place] [address] 11/14/2024 11:30 AM EDT Office Visit [facility] [address] [place] [address] Brooke Pressley MD [address] [address] Kim Braun, PT [address] [place] [address] 11/21/2024 11:30 AM EDT Office Visit [facility] [address] [place] [address] Brooke Pressley MD [address] [address] Kim Braun, PT [address] [place] [address] 11/28/2024 11:30 AM EDT Office Visit [facility] [address] [place] [address] Brooke Pressley MD [address] [address] Kim Braun, PT [address] [place] [address] 05/10/2025 9:15 AM EDT Appointment [address] [place] [address] Jessy Andersen, AMBIKA [address] [place] [address] documented as of this encounter Results * XR FINGER 2 OR MORE VIEWS (LEFT) (05/11/2020 10:40 AM EST) Anatomical Region Laterality Modality Hand Left Computed Radiogr aphy 05/11/2020 10:4 9 AM EST Impressions 05/11/2020 10:51 AM EST Probable minute volar plate avulsion at the PIP joint. POS [id number] Narrative 05/11/2020 10:51 AM EST 4 views. No comparison. There is a tiny flash of calcium along the ventral aspect of the PIP joint adjacent to the middle phalanx probably representing a minute volar plate avulsion. No other fracture or dislocation. There is slight deformity of the tuft of the distal phalanx suggesting a previous injury but that is clearly well-healed. No arthritic changes or other underlying bony abnormalities Procedure Note Prabhjot Wyman MD - 05/11/2020 4 views. No comparison. There is a tiny flash of calcium along the ventral aspect of the PIP jointadjacent to the middle phalanx probably representing a minute volar plateavulsion. No other fracture or dislocation. There is slight deformity of the tuft of the distal phalanx suggesting aprevious injury but that is clearly well-healed. No arthritic changes or other underlying bony abnormalities IMPRESSION: Probable minute volar plate avulsion at the PIP joint. POS [id number] Jacquelyn Chandler MD IMG XR UPPER EXTREMITY Final Result documented in this encounter Visit Diagnoses Diagnosis Pain in finger of left hand Pain in soft tissues of limb Pain in finger of left hand Pain in soft tissues of limb documented in this encounter Additional Health Concerns Infection Onset Date Last Indicated Resolved Time CoV-Risk 12/21/2021 12/21/2021 01/01/2022 1:22 AM EDT documented as of this encounter Care Teams Cardiac Exercise Specialist Relationship Specialty Start Date End Date Jacquelyn Chandler MD [address] [place] [address] [email or web address] PCP - General Internal Medicine 12/01/17 01/28/23 Jessy Andersen NP [address] [place] [address] PCP - General Nurse Practitioner 01/29/23 documented as of this encounter Additional Source Comments The information contained in this document represents components of the legal health record. It is not the complete legal health record.[facility]
== END 2024-11-02 10:50 | disposition home or self-care (01) ==
PROVIDERS: PCP Nurse Practitioner; Referring Provider Nurse Practitioner; Visit Provider Hospitalist
DX: J84.9 Interstitial pulmonary disease, unspecified (principal); T78.40XA Allergy, unspecified, initial encounter; R00.2 Palpitations; R06.09 Other forms of dyspnea; G47.10 Hypersomnia, unspecified; R06.83 Snoring; J45.20 Mild intermittent asthma, uncomplicated
CPT/HCPCS: 99205

== ENCOUNTER 2024-11-02 09:56 | Outpatient (REF) | payer OTHER, SELFPAY ==
[2024-11-02 11:28] LABS: MANUAL DIFF FLAG NO
[2024-11-02 11:55] LABS: Hematocrit 40.0 % (37.0-47.0); Hemoglobin 12.8 g/dl (12.0-16.0); Imm Gran Abs Auto 0.01 X10*3/uL (0.00-0.03); Imm Gran Pct Auto 0.1 % (0.0-0.4); Lymphocytes Absolute Auto 2.1 X10*3/uL (1.2-4.9); Mean Corpuscular HGB Conc 32.0 g/dl (31.0-35.0); Mean Corpuscular Hemoglobin 27.2 pg (27.0-33.0); Mean Corpuscular Volume 85.1 fL (80.0-98.0); NRBC Abs Auto 0.000 X10*3/uL (0.0-0.012); NRBC Pct Auto 0.0 /100WBC (0.0-0.2); Platelet Count 257 X10*3/uL (160-400); Red Blood Count 4.70 X10*6/uL (4.20-5.50); White Blood Count 6.8 X10*3/uL (4.8-10.8)
[2024-11-03 16:34] LABS: Antibody to SS-A Antigen >8.0 POS AI (<1.0 NEG); Antibody to SS-B Antigen <1.0 NEG AI (<1.0 NEG)
[2024-11-04 09:38] LABS: Class Alternaria alternata 0; Class Aspergillus fumigatus 0; Class Bermuda Grass 0; Class Birch 0; Class Cat Dander 0; Class Cladosporium herbarum 0; Class Cockroach 0; Class Common Ragweed 0; Class Cottonwood 0; Class Derm. pterony 0; Class Dermatophagoides farinae 0; Class Dog Dander 0; Class Elm 0; Class Maple Box Elder 0; Class Mountain Cedar 0; Class Mouse Urine Protein 0; Class Mugwort 0; Class Oak 0; Class Penicillium crysogenum 0; Class Rough Pigweed 0; Class Sheep Sorrel 0; Class Sycamore 0; Class Timothy Grass 0; Class Walnut Tree 0; Class White Ash 0; Class White Mulberry 0; D002 - IgE D farinae <0.10 kU/L; E001 - IgE Cat Dander <0.10 kU/L; E005 - IgE Dog Dander <0.10 kU/L; G006 - IgE Timothy Grass <0.10 kU/L; I006-IgE Cockroach, German <0.10 kU/L; M002 - IgE Cladosporium herbar <0.10 kU/L; M003 - IgE Aspergillus fumigat <0.10 kU/L; M006 - IgE Alternaria alternat <0.10 kU/L; T001 IgE Maple/Box Elder <0.10 kU/L; T006 - IgE Cedar, Mountain <0.10 kU/L; T007 - IgE Oak, White <0.10 kU/L; T008 IgE Elm, American <0.10 kU/L; T010 - IgE Walnut <0.10 kU/L; T011 - IgE Maple Leaf Sycamore <0.10 kU/L; T014 - IgE Cottonwood <0.10 kU/L; T015 - IgE Ash, White <0.10 kU/L; T070 - IgE White Mulberry <0.10 kU/L; W001 - IgE Ragweed, Short <0.10 kU/L; W006 - IgE Mugwort <0.10 kU/L; W014 IgE Pigweed, Common <0.10 kU/L; W018 IgE Sheep Sorrel <0.10 kU/L
[2024-11-08 12:18] LABS: Asperg fumigatus Precip Abs NEGATIVE (NEGATIVE); Micropoly faeni Abs NEGATIVE (NEGATIVE); Saccharo pora viridis Abs NEGATIVE (NEGATIVE); Thermo candidus Abs NEGATIVE (NEGATIVE)
[2024-11-08 15:08] LABS: Anti Nuclear Antibody Screen POSITIVE (NEGATIVE); Anti Nuclear Antibody Titer 1:40 titer
== END 2024-11-02 09:57 | disposition home or self-care (01) ==
LOC: HO.LAB 09:56
PROVIDERS: PCP Nurse Practitioner; Referring Provider Nurse Practitioner; Visit Provider Hospitalist
DX: J45.20 Mild intermittent asthma, uncomplicated (principal); J84.9 Interstitial pulmonary disease, unspecified; T78.40XA Allergy, unspecified, initial encounter; R91.8 Other nonspecific abnormal finding of lung field; R91.1 Solitary pulmonary nodule; G47.10 Hypersomnia, unspecified; R06.83 Snoring
CPT/HCPCS: 36415; 82785; 85025; 85652; 86003; 86038; 86039; 86200; 86225; 86235; 86331; 86606; 86609; 99202

== ENCOUNTER → 2024-11-08 10:55 | Outpatient (REF) | payer OTHER, SELFPAY ==
--- OUTSIDE RECORDS SUMMARY | 2024-11-07 11:30 | XMS_ITS | Encounter Summary ---
Author Organization [facility] Address [address] [facility] [address] [place] [address] Phone Care Team Providers Care Cattle Brander Name Role Phone Jessy Andersen [employer]OX Primary Care Provider Reason for Visit * Physical Therapy (Routine) - Authorized Specialty Diagnoses / Procedures Referred By Gabriele canales Referred To Contact Physical Therapy Diagnoses UNSTEADINESS ON FEET Brooke Pressley MD [address] [address] Phone: tel: fax: [facility] [address] [place] [address] Phone: tel: Referral ID Status Reason Start Date Expiration Date V isits Requested Visits Authorized [id number] Authorized 09/06/2024 03/01/2025 99 99 Encounter Details Date Type Department Care Team (Latest Contact Info) Description 11/07/2024 11:30 AM EDT Office Visit [facility] [address] [place], [place] [phone] Brooke Pressley MD [address] [address] Kim Braun, PT [address] [place], [place] [phone] [email or web address] Other abnormalities of gait and mobility (Primary Dx) Social History Tobacco Use Types [...] on file documented as of this encounter Progress Notes * Kim Braun, PT - 11/07/2024 11:30 AM EDT Physical Therapy Treatment Note Patient Name: Danette Sheth Date of : 1955 This patient has attended 3 visits since the onset Physical Therapy. Referring MD: Brooke Pressley MD [address] [place] [address] Diagnosis: ICD-10-CM 1. Other abnormalities of gait and mobility R26.89 Date of Surgery: None Precautions: mild cognitive decline. Fall risk. Subjective comments: having trouble with one of the exercise in HEP, can't lift my leg much Interventions: See encounter report for minutes associated with each intervention. Interventions Min. Parameters THERAPEUTIC EXERCISE 30 Recumbent bike x6 mins, resistance = 2 Review current HEP for improved form, sequencing: Bridge x10 x2 Clamshells x10 x2 (B) Chair squats x10 x2 Side steps x15 x2 (B) yellow tband on ankles Standing hip extension yellow tband on ankles x10 x2 (B) Standing hip abduction yellow tband x10 x2 (B) NEURO RE-EDUCATION 10 Mindful walking F/B Z-steps F/B Home Exercise Program: Access Code: [email or web address] URL: [email or web address] Date: 10/17/2024 Prepared by: Kim Braun Exercises - Supine Bridge - 1 x daily - 2 sets - 10 reps - Sit to Stand - 1 x daily - 2 sets - 10 reps - Clamshell - 1 x daily - 2 sets - 10 reps Assessment: review of HEP clarifies which exercises pt needs to perform, was trying to do sidelyinghip abduction which was too difficult; able to perform clamshells well. Plan: Assess response to today's visit. Kim Braun, TAYO [id number] documented in this encounter Plan of Treatment Upcoming Encounters Date Type Department Care Team (Late st Contact Info) Description 09/28/2024 Procedure Pass [facility] - [address] [place] [address] 11/14/2024 11:30 AM EDT Office Visit [facility] [address] [place] [address] Brooke Pressley MD 299 [facility] [address] [place] [address] Kim Braun, PT [address] [place] [address] 11/21/2024 11:30 AM EDT Office Visit [facility] [address] [place] [address] Brooke Pressley MD [address] [address] Kim Braun, PT [address] [place] [address] 11/28/2024 11:30 AM EDT Office Visit [facility] [address] [place] [address] Brooke Pressley MD [address] [address] Kim Braun, PT [address] [place] [address] 05/10/2025 9:15 AM EDT Appointment [facility] - [address] [place] [address] Jessy Andersen NP [address] [place] [address] documented as of this encounter Visit Diagnoses Diagnosis Other abnormalities of gait and mobility- Primary Other abnormalities of gait and mobility- Primary documented in this encounter Additional Health Concerns Assessment Noted Time PHQ-2 Depression Total Score: 0 09/02/19 10:16 AM EDT documented as of this encounter Care Teams Cattle Brander Relationship Specialty Start Date End Date Jessy Andersen NP PCP - General Nurse Practitioner 01/29/23 documented as of this encounter Additional Source Comments The information contained in this document represents components of the legal health record. It is not the complete legal health record.[facility]
--- OUTSIDE RECORDS SUMMARY | 2024-11-08 13:10 | XMS_ITS | Encounter Summary ---
Author Organization [facility] Address [address] [place] [address] Phone Care Team Providers Care Skin Washer Name Role Phone Jacquelyn Chandler MD Primary Care Provider Jessy Andersen NP Primary Care Provider Encounter Details Date Type Department Care Team (Latest Contact Info) Description 11/27/2021 Transcribe Orders [facility] Laboratory [address] [address] Nat Tam PA 10 [place] [address] Abdominal pain, left lower quadrant (Primary Dx); [...] (Late Contact Info) Description 09/28/2024 [facility] [address] [place] [address] 11/14/2024 11:30 AM EDT Office Visit [facility] [address] [place] [address] Brooke Pressley MD [address] [address] Kim Braun, PT 380 [place] [address] [email or web address] 11/21/2024 11:30 AM EDT Office Visit [facility] [address] [place] [address] Brooke Pressley MD [address] [address] Kim Braun, PT 380 [place] [address] [email or web address] 11/28/2024 11:30 AM EDT Office Visit [address] [address] Brooke Pressley MD [address] [address] Kim Braun, PT 380 [place] [address] [email or web address] 05/10/2025 9:15 AM EDT Appointment [facility] - [address] [place] [address] Jessy Andersen, AMBIKA [address] [place] [address] documented as of this encounter Results * (ABNORMAL) 25-OH vitamin D (11/27/2021 11:43 AM EDT) 25 OH VIT D (TOTAL) 26(L) 30 - 60 ng/mL [facility] Blood 11/27/2021 11:4 3 AM EDT 11/27/2021 11:47 AM EDT Nat GONZALEZ LAB BLOOD ORDERABLES Final Result Performing Organization Address [facility]/ZIP Co de Phone Number [address] [address] * Vitamin B12 (11/27/2021 11:43 AM EDT) Pathologist [facility] VITAMIN B12 1,048 232 - 1,245 pg/mL [facility] Blood 11/27/2021 11:4 3 AM EDT 11/27/2021 11:47 AM EDT Nat GONZALEZ LAB BLOOD ORDERABLES Final Result Performing Organization Address City/[facility] Co de Phone Number [address] [address] * CBC (11/27/2021 11:43 AM EDT) Pathologist [facility] WBC 5.75 4.00 - 11.00 K/uL [facility] RBC 4.62 3.72 - 5.30 M/uL [facility] HGB 13.0 11.4 - 15.9 g/dL [facility] HCT 39.5 34.2 - 46.8 % [facility] PLT 286 140 - 430 K/uL [facility] MCV 85.5 78.0 - 97.0 fL [facility] MCH 28.1 25.0 - 33.0 pg [facility] MCHC 32.9 32.0 - 36.0 g/dL [facility] RDW 13.5 11.0 - 16.0 % [facility] MPV 11.1 8.4 - 12.8 fl [facility] Blood 11/27/2021 11:4 3 AM EDT 11/27/2021 11:47 AM EDT us Nat GONZALEZ LAB BLOOD ORDERABLES Final Result [facility] 30 [place] [address] documented in this encounter Visit Diagnoses Diagnosis Abdominal pain, left lower quadrant- Primary Abdominal pain, right lower quadrant Other abnormalities of gait and mobility- Primary documented in this encounter Additional Health Concerns Infection Onset Date Last Indicated Resolved Time CoV-Risk 12/21/2021 12/21/2021 01/01/2022 1:22 AM EDT Assessment Noted Time PHQ-2 Depression Total Score: 0 07/30/19 10:09 AM EDT documented as of this encounter Care Teams Skin Washer Relationship Specialty Start Date End Date Jacquelyn Chandler MD [address] [place] [address] PCP - General Internal Medicine 12/01/17 01/28/23 Jessy Andersen NP [address] [place] [address] PCP - General Nurse Practitioner 01/29/23 documented as of this encounter Additional Source Comments The information contained in this document represents components of the legal health record. It is not the complete legal health record.[facility]
--- OUTSIDE RECORDS SUMMARY | 2024-11-08 13:10 | XMS_ITS | Encounter Summary ---
Author Organization [facility] Address [address] [place] [address] Phone Care Team Providers Care Orthopedic Coder Name Role Phone Jacquelyn Chandler MD Primary Care Provider Jessy Andersen NP Primary Care Provider Encounter Details Date Type Department Care Team (Late st Contact Info) Description 09/26/2021 Procedure Pass [facility] - [address] [address] Social History Tobacco Use Types Packs/Day Years [...] Contact Info) Description 09/28/2024 Procedure Pass [facility] - [address] [place] [address] 11/14/2024 11:30 AM EDT Office Visit [address] [address] Brooke Pressley MD [address] [address] Kim Braun, PT 380 [place] [address] [email or web address] 11/21/2024 11:30 AM EDT Office Visit [facility] 380 [place] [address] Brooke Pressley MD [address] [address] Kim Braun, PT 380 [place] [address] [email or web address] 11/28/2024 11:30 AM EDT Office Visit [address] [address] Brooke Pressley MD [address] [address] Kim Braun, PT 380 [place] [address] [email or web address] 05/10/2025 9:15 AM EDT Appointment [facility] - [address] [place] [address] [facility] [address] [place] [address] documented as of this encounter Visit Diagnoses Not on filedocumented in this encounter Additional Health Concerns Infection Onset Date Last Indicated Resolved Time CoV-Risk 12/21/2021 12/21/2021 01/01/2022 1:22 AM EDT Assessment Noted Time PHQ-2 Depression Total Score: 0 07/30/19 10:09 AM EDT documented as of this encounter Care Teams Orthopedic Coder Relationship Specialty Start Date End Date Jacquelyn Chandler MD [address] [place] [address] [email or web address] PCP - General Internal Medicine 12/01/17 01/28/23 Jessy Andersen NP [address] [place] [address] PCP - General Nurse Practitioner 01/29/23 documented as of this encounter Additional Source Comments The information contained in this document represents components of the legal health record. It is not the complete legal health record.[facility]
--- OUTSIDE RECORDS SUMMARY | 2024-11-08 13:11 | XMS_ITS | Encounter Summary ---
Author Organization [facility] Address [address] [place] [address] Phone Care Team Providers Care Customer Experience Specialist Name Role Phone Jacquelyn Chandler MD Primary Care Provider Jessy Andersen NP Primary Care Provider Reason for Referral * MRI/CAT Scan - Closed Specialty Diagnoses / Procedures Referred By Gabriele canales Referred To Contact Radiology Diagnoses Abnormal findings on diagnostic imaging of liver and biliary tract RLQ abdominal pain Procedures CT Abdomen/Pelvis Seth Jeter MD Phone: tel: fax: mailto:[email or web address] Referral ID Status Reason Start Date Expiration Date Visits Re quested Visits Authorized [id number] Closed 09/28/2019 01/18/2020 1 1 Encounter Details Date Type Department Care Team (Latest Contact Info) Description 09/28/2019 Transcribe Orders Virtual Department 30 [place] [address] Seth Jeter MD [address] [place] [address] [email or web address] Abnormal findings on diagnostic imaging of liver [...] st Contact Info) Description 09/28/2024 Procedure Pass [facility] - [address] [place] [address] 11/14/2024 11:30 AM EDT Office Visit [facility] [address] [place] [address] Brooke Pressley MD [address] [address] Kim Braun, PT 380 [place] [address] [email or web address] 11/21/2024 11:30 AM EDT Office Visit [facility] [address] [place] [address] Brooke Pressley MD [address] [address] Kim Braun, PT 380 [place] [address] [email or web address] 11/28/2024 11:30 AM EDT Office Visit [address] [address] Brooke Pressley MD [address] [address] Kim Braun, PT 380 [facility] [place] [address] [email or web address] 05/10/2025 9:15 AM EDT Appointment [address] [place] [address] Jessy nAdersen, PIN PUSHER 73 [facility] [place] [address] documented as of this encounter Results * [...] or suspicious bone lesions. Procedure Note Dylan Sanderson MD - 10/21/2019 COMPARISON: 08/26/2018. TECHNIQUE: CT [...] abdominal pain Abdominal pain, right lower quadrant Other abnormalities of gait and mobility- Primary documented in this encounter Additional Health Concerns Infection Onset Date Last Indicated Resolved Time CoV-Risk 12/21/2021 12/21/2021 01/01/2022 1:22 AM EDT documented as of this encounter Care Teams Customer Experience Specialist Relationship Specialty Start Date End Date Jacquelyn Chandler MD [address] [place] [address] [email or web address] PCP - General Internal Medicine 12/01/17 01/28/23 Jessy Andersen NP [address] [place] [address] PCP - General Nurse Practitioner 01/29/23 documented as of this encounter Additional Source Comments The information contained in this document represents components of the legal health record. It is not the complete legal health record.[facility]
--- OUTSIDE RECORDS SUMMARY | 2024-11-08 13:11 | XMS_ITS | Encounter Summary ---
Author Organization [facility] Address [address] [place] [address] Phone Care Team Providers Care Fibre Technologist Name Role Phone Jacquelyn Chandler MD Primary Care Provider Jessy Andersen NP Primary Care Provider Reason for Referral * Consultation (Elective) - Closed Specialty Diagnoses / Procedures Referred By Gabriele canales Referred To Contact Pulmonary Disease Jacquelyn Chandler MD Phone: tel: mailto:[email or web address] 30 [place] [address] Phone: tel: Referral ID Status Reason Start Date Expiration Date Visits Re quested Visits Authorized [id number] Closed 06/21/2020 06/21/2021 1 1 Encounter Details Date Type Department Care Team (Late st Contact Info) Description 06/21/2020 Transcribe Orders CD Pulmonary, Allergy and Critical Care Medicine 10 [place] [address] Jacquelyn Chandler MD 25 [place] [address] [email or web address] Social History Tobacco Use Types Packs/Day Years [...] Procedure Pass [facility] - [address] [place] [address] 11/14/2024 11:30 AM EDT Office Visit [facility] [address] [place] [address] Brooke Pressley MD [address] [address] Kim Braun, PT 380 [place] [address] [email or web address] 11/21/2024 11:30 AM EDT Office Visit [address] [address] Brooke Pressely MD [address] [address] Kim Braun, PT 380 [place] [address] [email or web address] 11/28/2024 11:30 AM EDT Office Visit [address] [address] Brooke Pressley MD [address] [address] Kim Braun, PT 380 [place] [address] 05/10/2025 9:15 AM EDT Appointment [address] [place] [address] Jessy Andersen NP [address] [place] [address] Scheduled Referrals Name Type Priority Associated Diagnoses Order Schedule Ambulatory referral to [facility] Pulmonology Outpatient Referral Routine Ordered: 06/21/2020 documented as of this encounter Visit Diagnoses Not on filedocumented in this encounter Additional Health Concerns Infection Onset Date Last Indicated Resolved Time CoV-Risk 12/21/2021 12/21/2021 01/01/2022 1:22 AM EDT documented as of this encounter Care Teams Fibre Technologist Relationship Specialty Start Date End Date Jacquelyn Chandler MD [address] [place] [address] PCP - General Internal Medicine 12/01/17 01/28/23 Jessy Andersen NP [address] [place] [address] PCP - General Nurse Practitioner 01/29/23 documented as of this encounter Additional Source Comments The information contained in this document represents components of the legal health record. It is not the complete legal health record.[facility]
--- OUTSIDE RECORDS SUMMARY | 2024-11-08 13:11 | XMS_ITS | Encounter Summary ---
Author Organization [facility] Address [address] [place] [address] Phone Care Team Providers Care Fuel Storage Technician Name Role Phone Jacquelyn Chandler MD Primary Care Provider Jessy Andersen NP Primary Care Provider Encounter Details Date Type Department Care Team (Late st Contact Info) Description 08/09/2020 Ancillary Orders [facility] 30 [place], [place] [phone] System, Provider Not In, [facility] [address] [address] Social History Tobacco Use Types Packs/Day Years [...] st Contact Info) Description 09/28/2024 Procedure Pass [facility] - [address] [place] [address] 11/14/2024 11:30 AM EDT Office Visit [facility] 380 [place] [address] Brooke Pressley MD [address] [address] Kim Braun, PT 380 [place] [address] 11/21/2024 11:30 AM EDT Office Visit [facility] 380 [place] [address] Brooke Pressley MD [address] [address] Kim Braun, PT 380 [place] [address] 11/28/2024 11:30 AM EDT Office Visit [address] [address] Brooke Pressley MD [address] [address] Kim Braun, PT 380 [place] [address] 05/10/2025 9:15 AM EDT Appointment [facility] - [address] [place] [address] Jessy Andersen, SPECIAL AGENT SECRET SERVICE [facility] [address] documented as of this encounter Results * [...] documented as of this encounter Care Teams Fuel Storage Technician Relationship Specialty Start Date End Date Jacquelyn Chandler MD [address] [place] [address] [email or web address] PCP - General Internal Medicine 12/01/17 01/28/23 Jessy Andersen NP [address] [place] [address] PCP - General Nurse Practitioner 01/29/23 documented as of this encounter Additional Source Comments The information contained in this document represents components of the legal health record. It is not the complete legal health record.[facility]
--- OUTSIDE RECORDS SUMMARY | 2024-11-08 13:11 | XMS_ITS | Encounter Summary ---
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 documented as of this encounter Plan of Treatment Upcoming Encounters Date Type Department Care Team (Late Contact Info) Description 09/28/2024 Procedure Pass [address] [place] [address] 11/14/2024 11:30 AM EDT Office Visit [facility] [address] [place] [address] Brooke Pressley MD [address] [address] Kim Braun, PT 380 [place] [address] 11/21/2024 11:30 AM EDT Office Visit [facility] 380 [place] [address] Brooke Pressley MD [address] [address] Kim Braun, PT 380 [place] [address] 11/28/2024 11:30 AM EDT Office Visit [facility] [address] [place] [address] Brooke Pressley MD [address] [address] Kim Braun, PT 380 [place] [address] 05/10/2025 9:15 AM EDT Appointment [address] [place] [address] Jessy Andersen, HEAD WELL PULLER [address] [place] [address] documented as of this encounter Results * CBC and differential (04/29/2018 11:30 AM EST) WBC 5.51 3.40 - 11.20 K/uL [facility] RBC 4.80 3.80 - 4.80 M/uL [facility] HGB 13.1 12.0 - 15.0 g/dL [facility] HCT 40.2 36.0 - 46.0 % [facility] PLT 294 130 - 400 K/uL [facility] MCV 83.8 79.0 - 98.0 fL [facility] MCH 27.3 27.0 - 34.8 pg [facility] MCHC 32.6 31.5 - 36.0 g/dL [facility] RDW 13.1 10.8 - 14.6 % [facility] MPV 11.0 9.4 - 12.4 fl [facility] NRBC 0.00 0.00 /100 WBCs [facility] ABSOLUTE NRBC 0.00 0.00 K/uL [facility] DIFF METHOD Auto [facility] NEUTS 54.6 45.30 - 77.70 % [facility] LYMPHS 35.9 12.30 - 39.70 % [facility] MONOS 6.0 4.10 - 12.80 % [facility] EOS 2.4 0 - 7.2 % [facility] BASOS 0.9 0 - 2.80 % [facility] Granulocytes, immature (%) 0.2 0.0 - 0.9 % [facility] ABSOLUTE NEUTS 3.01 1.40 - 7.70 K/uL [facility] ABSOLUTE LYMPHS 1.98 0.60 - 3.20 K/uL [facility] ABSOLUTE MONOS 0.33 0.11 - 0.59 K/uL [facility] ABSOLUTE EOS 0.13 0.01 - 0.50 K/uL [facility] ABSOLUTE BASOS 0.05 0.00 - 0.08 K/uL [facility] Granulocytes, immature 0.01 0.00 - 0.05 K/uL [facility] Blood 04/29/2018 11:3 0 AM EST 04/29/2018 11:37 AM EST us Jacquelyn Chandler MD LAB BLOOD ORDERABLES Final R esult [facility] 30 [place] [address] * Basic metabolic panel (04/29/2018 11:30 AM EST) SODIUM 137 133 - 146 mmol/L [facility] CHLORIDE 101 96 - 108 mmol/L [facility] POTASSIUM 4.6 3.3 - 5.1 mmol/L [facility] CO2 29 21 - 35 mmol/L [facility] BUN 17 6 - 19 mg/dL [facility] CREATININE 0.90 0.5 - 1.5 mg/dL [facility] GLUCOSE 88 70 - 99 mg/dL [facility] CALCIUM 9.6 8.4 - 10.3 mg/dL [facility] EGFR 69 >59 mL/min/1.7 3m2 [facility] Comment:If patient is black, multiply result by 1.159. Estimated glomerular filtration rate calculated using the CKD-EPI equation. ANION GAP 12 10 - 20 mmol/L [facility] Blood 04/29/2018 11:3 0 AM EST 04/29/2018 11:37 AM EST us Jacquelyn Chandler MD LAB BLOOD ORDERABLES Final R esult Performing Organization Address City/State/[facility] Co de Phone Number [facility] 30 [place] [address] documented in this encounter Visit Diagnoses Diagnosis Central perforation of tympanic membrane of right ear- Primary Other abnormalities of gait and mobility- Primary documented in this encounter Additional Health Concerns Infection Onset Date Last Indicated Resolved Time CoV-Risk 12/21/2021 12/21/2021 01/01/2022 1:22 AM EDT documented as of this encounter Care Teams Accounts Receivable Specialist Relationship Specialty Start Date End Date Jacquelyn Chandler MD [address] [place] [address] PCP - General Internal Medicine 12/01/17 01/28/23 Jessy Andersen NP [address] [place] [address] PCP - General Nurse Practitioner 01/29/23 documented as of this encounter Additional Source Comments The information contained in this document represents components of the legal health record. It is not the complete legal health record.[facility]
--- OUTSIDE RECORDS SUMMARY | 2024-11-08 13:11 | XMS_ITS | Encounter Summary ---
Author Organization [employer] Address [address] [facility] 7[address] [place] [address] Care Team Providers Care Pallet Rectifier Name Role Phone [facility] Primary Care Provider [phone] Encounter Details Date Type Department Care Team (Late st Contact Info) Description 09/01/2024 Orders Only [facility] [address] [place] [address] Jessy Andersen, [facility] [address] [place] [address] Social History Tobacco Use Types Packs/Day Years [...] Description 12/22/2024 11:40 AM EDT Office Visit [place] [address] [place] [address] [place], [place] [facility] [address] [place] [address] documented as of this encounter Procedures Procedure Name Priority Date/Time Associated Diagnosis Comments COMPREHENSIVE METABOLIC PANEL Routine 08/29/2024 11:29 AM EDT documented in this encounter Results * Comprehensive Metabolic Panel (08/29/2024 11:29 AM EDT) Blood Venous blood specimen / Unknown [facility] LAB BLOOD ORDERABLES Ana l Result documented in this encounter Visit Diagnoses Not on filedocumented in this encounter Care Teams Pallet Rectifier Relationship Specialty Start Date End Date Jessy Andersen FNP [address] [place] [address] PCP - General Family Medicine 10/01/22 documented as of this encounter
--- OUTSIDE RECORDS SUMMARY | 2024-11-08 13:11 | XMS_ITS | Encounter Summary ---
Author Organization [facility] Address [address] [facility] [address] [place] [address] Phone Care Team Providers Care Web Marketing Analyst Name Role Phone Jacquelyn Chandler MD Primary Care Provider Jessy Andersen NP Primary Care Provider Encounter Details Date Type Department Care Team (Late st Contact Info) Description 06/24/2018 Ancillary Orders [facility] [address] [address] Cammie Rodriguez, DONN [address] 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 documented as of this encounter Plan of Treatment Upcoming Encounters Date Type Department Care Team (Late st Contact Info) Description 09/28/2024 Procedure Pass [place] [facility] - [address] [place] [address] 11/14/2024 11:30 AM EDT Office Visit [facility] [address] [place] [address] Brooke Pressley MD [address] [address] Kim Braun, PT 380 [place] [address] [email or web address] 11/21/2024 11:30 AM EDT Office Visit [facility] [address] [place] [address] Brooke Pressley MD [address] [address] Kim Braun, PT 380 [place] [address] [email or web address] 11/28/2024 11:30 AM EDT Office Visit [facility] [address] [place] [address] Brooke Pressley MD [address] [address] Kim Braun, PT 380 [place] [address] [email or web address] 05/10/2025 9:15 AM EDT Appointment [place] [address] [place] [address] Jessy Andersen NP [address] [place] [address] documented as of this encounter Visit Diagnoses Not on filedocumented in this encounter Additional Health Concerns Infection Onset Date Last Indicated Resolved Time CoV-Risk 12/21/2021 12/21/2021 01/01/2022 1:22 AM EDT documented as of this encounter Care Teams Web Marketing Analyst Relationship Specialty Start Date End Date Jacquelyn Chandler MD [address] [place] [address] [email or web address] PCP - General Internal Medicine 12/01/17 01/28/23 Jessy Andersen NP [address] [place] [address] PCP - General Nurse Practitioner 01/29/23 documented as of this encounter Additional Source Comments The information contained in this document represents components of the legal health record. It is not the complete legal health record.[facility]
--- OUTSIDE RECORDS SUMMARY | 2024-11-08 13:11 | XMS_ITS | Encounter Summary ---
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 documented as of this encounter Plan of Treatment Upcoming Encounters Date Type Department Care Team (Late st Contact Info) Description 09/28/2024 Procedure Pass [address] [place] [address] 11/14/2024 11:30 AM EDT Office Visit [address] [address] Brooke Pressley MD [address] [address] Kim Braun, PT 380 [place] [address] [email or web address] 11/21/2024 11:30 AM EDT Office Visit [facility] [address] [place] [address] Brooke Pressley MD [address] [address] Kim Braun, PT [address] [place] [address] [email or web address] 11/28/2024 11:30 AM EDT Office Visit [address] [address] Brooke Pressley MD [address] [address] Kim Braun, PT 380 [place] [address] [email or web address] 05/10/2025 9:15 AM EDT Appointment [address] [place] [address] Jessy Andersen, AMBIKA [address] [place] [address] documented as of this encounter Results * [...] are scattered fibroglandular densities. POS - [id number] Jacquelyn Chandler MD IMG MG EXAMS Final Result documented in this encounter Visit Diagnoses Diagnosis Breast screening Breast screening, unspecified Breast screening Breast screening, unspecified Other abnormalities of gait and mobility- Primary documented in this encounter Additional Health Concerns Infection Onset Date Last Indicated Resolved Time CoV-Risk 12/21/2021 12/21/2021 01/01/2022 1:22 AM EDT documented as of this encounter Care Teams Air Conditioning Unit Assembler Relationship Specialty Start Date End Date Jacquelyn Chandler MD [address] [place] [address] [email or web address] PCP - General Internal Medicine 12/01/17 01/28/23 Jessy Andersen NP [address] [place] [address] PCP - General Nurse Practitioner 01/29/23 documented as of this encounter Additional Source Comments The information contained in this document represents components of the legal health record. It is not the complete legal health record.[facility]
--- OUTSIDE RECORDS SUMMARY | 2024-11-08 13:11 | XMS_ITS | Encounter Summary ---
Author Organization [facility] Address [address] [place] [address] Phone Care Team Providers Care Hearing Instrument Specialist Name Role Phone Jacquelyn Chandler MD Primary Care Provider [phone] Jessy Andersen NP Primary Care Provider Reason for Referral * MRI/CAT Scan - Closed Specialty Diagnoses / Procedures Referred By Gabriele canales Referred To Contact Radiology Diagnoses Nausea LLQ pain Procedures CT Abdomen/Pelvis Seth Jeter MD Phone: tel: fax: [email or web address] Referral ID Status Reason Start Date Expiration Date Visits Re quested Visits Authorized [id number] Closed 08/17/2018 11/15/2018 1 1 Encounter Details Date Type Department Care Team (Latest Contact Info) Description 08/18/2018 Transcribe Orders Virtual Department 30 [place] [address] Seth Jeter MD [address] [place] [address] [email or web address] Nausea (Primary Dx); LLQ pain Social History [...] 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 documented as of this encounter Plan of Treatment Upcoming Encounters Date Type Department Care Team (Late st Contact Info) Description 09/28/2024 Procedure Pass [facility] - [address] [place] [address] 11/14/2024 11:30 AM EDT Office Visit [facility] [address] [place] [address] Brooke Pressley MD [address] [address] Kim Braun, PT [address] [place] [address] 11/21/2024 11:30 AM EDT Office Visit [facility] [address] [place] [address] Brooke Pressley MD [address] [address] Kim Braun, PT 380 [place] [address] 11/28/2024 11:30 AM EDT Office Visit [address] [address] Brooke Pressley MD [address] [address] Kim Braun, PT 380 [place] [address] 05/10/2025 9:15 AM EDT Appointment [address] [place] [address] Jessy Andersen, AMBIKA [address] [place] [address] documented as of this encounter Results * [...] only. TOTAL CTDIvol: 5.8 mGy POS - [id number] Edited by: Karen Jin on 08/26/2018 10:37 [...] only. TOTAL CTDIvol: 5.8 mGy POS - [id number] Edited by: Karen Jin on 08/26/2018 10:37 AM us Seth Jeter MD IMG CT ABD/PELVIS Final Resu lt documented in this encounter Visit Diagnoses Diagnosis Nausea- Primary Nausea alone LLQ pain Abdominal pain, left lower quadrant Nausea Nausea alone LLQ pain Abdominal pain, left lower quadrant Other abnormalities of gait and mobility- Primary documented in this encounter Additional Health Concerns Infection Onset Date Last Indicated Resolved Time CoV-Risk 12/21/2021 12/21/2021 01/01/2022 1:22 AM EDT documented as of this encounter Care Teams Hearing Instrument Specialist Relationship Specialty Start Date End Date Jacquelyn Chandler MD [address] [place] [address] [email or web address] PCP - General Internal Medicine 12/01/17 01/28/23 Jessy Andersen NP [address] [place] [address] PCP - General Nurse Practitioner 01/29/23 documented as of this encounter Additional Source Comments The information contained in this document represents components of the legal health record. It is not the complete legal health record.[facility]
--- OUTSIDE RECORDS SUMMARY | 2024-11-08 13:11 | XMS_ITS | Encounter Summary ---
Author Organization [facility] Address [address] [place] [address] Phone Care Team Providers Care Private Chef Name Role Phone Jacquelyn Chandler MD Primary Care Provider [phone] Jessy Andersen NP Primary Care Provider Encounter Details Date Type Department Care Team (Latest Contact Info) Description 10/04/2018 Transcribe Orders [facility] [address] [facility] [place] [address] Seth Jeter MD [address] [address] [email or web address] Malabsorption due to intolerance, not elsewhere classified [...] 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 [place] Not on file Not on file Not on file documented as of this encounter Plan of Treatment Upcoming Encounters Date Type Department Care Team (Late st Contact Info) Description 09/28/2024 Procedure Pass [place] [facility] - [address] [place] [address] 11/14/2024 11:30 AM EDT Office Visit [facility] [address] [place] [address] Brooke Pressley MD [address] [address] Kim Braun, PT [address] [place] [address] 11/21/2024 11:30 AM EDT Office Visit [facility] [address] [place] [address] Brooke Pressley MD [address] [address] Kim Braun, PT 380 [place] [address] 11/28/2024 11:30 AM EDT Office Visit [facility] [address] [place] [address] Brooke Pressley MD [address] [address] Kim Braun, PT 380 [place] [address] 05/10/2025 9:15 AM EDT Appointment [place] [facility] - [address] [place] [address] Jessy Andersen, GENERAL LITHOGRAPHIC WORKER [facility] [address] documented as of this encounter Results * C-Reactive Protein (10/04/2018 1:59 PM EDT) C REACTIVE PROTEIN 3.2 0.0 - 4.0 mg/L [facility] Blood 10/04/2018 1:59 PM EDT 10/04/2018 2:04 PM EDT us Seth Jeter MD LAB BLOOD ORDERABLES Final R esult Performing Organization Address City/[facility]/ZIP Co de Phone Number [address] [address] * CBC (10/04/2018 1:59 PM EDT) Pathologist [facility] WBC 6.90 3.40 - 11.20 K/uL [facility] RBC 4.70 3.80 - 4.80 M/uL [facility] HGB 13.1 12.0 - 15.0 g/dL [facility] HCT 39.7 36.0 - 46.0 % [facility] PLT 261 130 - 400 K/uL [facility] MCV 84.5 79.0 - 98.0 [facility] MCH 27.9 27.0 - 34.8 pg [facility] MCHC 33.0 31.5 - 36.0 g/dL [facility] RDW 13.1 10.8 - 14.6 % [facility] MPV 11.4 9.4 - 12.4 [facility] NRBC 0.00 0.00 /100 WBCs [facility] ABSOLUTE NRBC 0.00 0.00 K/uL [facility] Blood 10/04/2018 1:59 PM EDT 10/04/2018 2:04 PM EDT us Seth Jeter MD LAB BLOOD ORDERABLES Final R esult Performing Organization Address City/[facility]/ZIP Co de Phone Number [address] [address] * Tissue transglutaminase IgA (10/04/2018 1:59 PM EDT) TTG IGA ANTIBODY <1.2 <4.0 (Negative) U/mL [facility] Blood 10/04/2018 1:59 PM EDT 10/04/2018 2:03 PM EDT us Seth Jeter MD LAB BLOOD ORDERABLES Final R esult [facility] [place] [address] documented in this encounter Visit Diagnoses Diagnosis Malabsorption due to intolerance, not elsewhere classified- Primary Gastroesophageal reflux disease without esophagitis Esophageal reflux Other abnormalities of gait and mobility- Primary documented in this encounter Additional Health Concerns Infection Onset Date Last Indicated Resolved Time CoV-Risk 12/21/2021 12/21/2021 01/01/2022 1:2 2 AM EDT documented as of this encounter Care Teams Private Chef Relationship Specialty Start Date End Date Jacquelyn Chandler MD [address] [place] [address] PCP - General Internal Medicine 12/01/17 01/28/23 Jessy Andersen NP [address] [place] [address] PCP - General Nurse Practitioner 01/29/23 documented as of this encounter Additional Source Comments The information contained in this document represents components of the legal health record. It is not the complete legal health record.[facility]
--- OUTSIDE RECORDS SUMMARY | 2024-11-08 13:11 | XMS_ITS | Encounter Summary ---
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 Not on file documented as of this encounter Plan of Treatment Upcoming Encounters Date Type Department Care Team (Late Contact Info) Description 09/28/2024 Procedure Pass [facility] - [address] [place] [address] 11/14/2024 11:30 AM EDT Office Visit [facility] [address] [place] [address] Brooke Pressley MD [address] [address] Kim Braun, PT [address] [place] [address] 11/21/2024 11:30 AM EDT Office Visit [facility] [address] [place] [address] Brooke Pressley MD [address] [address] Kim Braun, PT 380 [place] [address] 11/28/2024 11:30 AM EDT Office Visit [address] [address] Brooke Pressley MD [address] [address] Kim Braun, PT [address] [place] [address] 05/10/2025 9:15 AM EDT Appointment [place] [address] [place] [address] Jessy Andersen NP [address] [place] [address] documented as of this encounter Results * (ABNORMAL) Creatinine/eGFR (09/12/2019 2:54 PM EDT) CREATININE 1.10 0.5 - 1.5 mg/dL [facility] EGFR 54(L) >59 mL/min/1.7 3m2 [facility] Comment:Estimated glomerular filtration rate calculated using the CKD-EPI equation. Blood 09/12/2019 2:54 PM EDT 09/12/2019 2:56 PM EDT us Seth Jeter MD LAB BLOOD ORDERABLES Final R esult Performing Organization Address [facility]/ZIP Co de Phone Number [address] [address] * BUN (09/12/2019 2:54 PM EDT) BUN 17 6 - 19 mg/dL [facility] Blood 09/12/2019 2:54 PM EDT 09/12/2019 2:56 PM EDT Seth Jeter MD LAB BLOOD ORDERABLES Final R esult Performing Organization Address [facility] de Phone Number [address] [address] documented in this encounter Visit Diagnoses Diagnosis Abdominal pain, RLQ- Primary Other abnormalities of gait and mobility- Primary documented in this encounter Additional Health Concerns Infection Onset Date Last Indicated Resolved Time CoV-Risk 12/21/2021 12/21/2021 01/01/2022 1:22 AM EDT documented as of this encounter Care Teams Amusement Ride Inspector Relationship Specialty Start Date End Date Jacquelyn Chandler MD [address] [place] [address] PCP - General Internal Medicine 12/01/17 01/28/23 Jessy Andersen NP [address] [place] [address] PCP - General Nurse Practitioner 01/29/23 documented as of this encounter Additional Source Comments The information contained in this document represents components of the legal health record. It is not the complete legal health record.[facility]
--- OUTSIDE RECORDS SUMMARY | 2024-11-08 13:11 | XMS_ITS | Encounter Summary ---
Author Organization [employer] Address [address] [facility] 7t [place] [address] Care Team Providers Care Booking Clerk Name Role Phone [facility] Primary Care Provider [phone] Encounter Details Date Type Department Care Team (Late st Contact Info) Description 11/03/2024 Orders Only [facility] [address] [place] [address] Jessy Andersen, [facility] [address] [place] [address] Social History Tobacco Use Types Packs/Day Years [...] Description 12/22/2024 11:40 AM EDT Office Visit [place] [facility] [address] [place] [address] [facility] [address] [place] [address] documented as of this encounter Procedures Procedure Name Priority Date/Time Associated Diagnosis Comments SED RATE BY MODIFIED WESTERGREN Routine 11/02/2024 2:06 PM EDT CBC WITH AUTO DIFFERENTIAL Routine 11/02/2024 2:06 PM EDT documented in this encounter Results * Sed Rate by Modified Westergren (11/02/2024 2:06 PM EDT) Blood Venous blood specimen / Unknown [facility] LAB BLOOD ORDERABLES Ana l Result * CBC auto differential (11/02/2024 2:06 PM EDT) Blood Venous blood specimen / Unknown [facility] LAB BLOOD ORDERABLES Ana l Result documented in this encounter Visit Diagnoses Not on filedocumented in this encounter Care Teams Booking Clerk Relationship Specialty Start Date End Date [facility] [address] [place] [address] PCP - General Family Medicine 10/01/22 documented as of this encounter
--- OUTSIDE RECORDS SUMMARY | 2024-11-08 13:11 | XMS_ITS | Encounter Summary ---
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 Not on file documented as of this encounter Plan of Treatment Upcoming Encounters Date Type Department Care Team (Late st Contact Info) Description 09/28/2024 [facility] [address] [place] [address] 11/14/2024 11:30 AM EDT Office Visit [facility] [address] [place] [address] Brooke Pressley MD [address] [address] Kim Braun, PT [address] [place] [address] [email or web address] 11/21/2024 11:30 AM EDT Office Visit [facility] [address] [place] [address] Brooke Pressley MD [address] [address] Kim Braun, PT [address] [place] [address] [email or web address] 11/28/2024 11:30 AM EDT Office Visit [address] [address] Brooke Pressley MD [address] [address] Kim Braun, PT [address] [place] [address] [email or web address] 05/10/2025 9:15 AM EDT Appointment [place] [address] [place] [address] Jessy Andersen NP [address] [place] [address] documented as of this encounter Results * Creatinine/eGFR (08/16/2018 9:25 AM EDT) CREATININE 0.90 0.5 - 1.5 mg/dL [facility] EGFR 69 >59 mL/min/1.7 3m2 [facility] Comment:If patient is black, multiply result by 1.159. Estimated glomerular filtration rate calculated using the CKD-EPI equation. Blood 08/16/2018 9:25 AM EDT 08/16/2018 9:29 AM EDT us Seth Jeter MD LAB BLOOD ORDERABLES Final R esult Performing Organization Address City/[facility]/ZIP Co de Phone Number [address] [address] * BUN (08/16/2018 9:25 AM EDT) BUN 13 6 - 19 mg/dL [facility] Blood 08/16/2018 9:25 AM EDT 08/16/2018 9:29 AM EDT us Seth Jeter MD LAB BLOOD ORDERABLES Final R esult Performing Organization Address [facility] Co de Phone Number [address] [address] documented in this encounter Visit Diagnoses Diagnosis LLQ pain- Primary Abdominal pain, left lower quadrant Nausea Nausea alone Other abnormalities of gait and mobility- Primary documented in this encounter Additional Health Concerns Infection Onset Date Last Indicated Resolved Time CoV-Risk 12/21/2021 12/21/2021 01/01/2022 1:22 AM EDT documented as of this encounter Care Teams Hospitality Director Relationship Specialty Start Date End Date Jacquelyn Chandler MD [address] [place] [address] PCP - General Internal Medicine 12/01/17 01/28/23 Jessy Andersen NP [address] [place] [address] PCP - General Nurse Practitioner 01/29/23 documented as of this encounter Additional Source Comments The information contained in this document represents components of the legal health record. It is not the complete legal health record.[facility]
--- OUTSIDE RECORDS SUMMARY | 2024-11-08 13:11 | XMS_ITS | Encounter Summary ---
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 Not on file documented as of this encounter Plan of Treatment Upcoming Encounters Date Type Department Care Team ( Contact Info) Description 09/28/2024 Procedure Pass [facility] - [address] [place] [address] 11/14/2024 11:30 AM EDT Office Visit [facility] [address] [place] [address] Brooke Pressley MD [address] [address] Kim Braun, PT [address] [place] [address] [email or web address] 11/21/2024 11:30 AM EDT Office Visit [facility] [address] [place] [address] Brooke Pressley MD [address] [address] Kim Braun, PT [address] [place] [address] [email or web address] 11/28/2024 11:30 AM EDT Office Visit [facility] [address] [place] [address] Brooke Pressley MD [address] [address] Kim Braun, PT [address] [place] [address] [email or web address] 05/10/2025 9:15 AM EDT Appointment [place] [address] [place] [address] Jessy Andersen NP [address] [place] [address] documented as of this encounter Results * Homocysteine (11/30/2018 9:10 AM EDT) HOMOCYSTEINE, TOTAL 8.1 0 - 14.2 umol/L [facility] Blood 11/30/2018 9:10 AM EDT 11/30/2018 9:17 AM EDT us Jacquelyn Chandler MD LAB BLOOD ORDERABLES Final R esult Performing Organization Address City/[facility]/ZIP Co de Phone Number [address] [address] * Vitamin B12 (11/30/2018 9:10 AM EDT) VITAMIN B12 655 232 - 1,245 pg/mL [facility] Blood 11/30/2018 9:10 AM EDT 11/30/2018 9:17 AM EDT us Jacquelyn Chandler MD LAB BLOOD ORDERABLES Final R esult Performing Organization Address [facility] Co de Phone Number [address] [address] * Folate (11/30/2018 9:10 AM EDT) FOLIC ACID 13.5 4.2 - 19.9 ng/mL [facility] Blood 11/30/2018 9:10 AM EDT 11/30/2018 9:17 AM EDT us Jacquelyn Chandler MD LAB BLOOD ORDERABLES Final R esult Performing Organization Address [facility] de Phone Number [address] [address] * Methylmalonic acid, serum (11/30/2018 9:10 AM EDT) METHYLMALONIC ACID 0.12 <=0.40 nmol/mL [facility] DPT OF LAB MED AND PAT+ Comment: (NOTE) ADDITIONAL INFORMATION This test was developed and its performance characteristics determined by [facility] in a manner consistent with CLIA requirements. This test has not been cleared or approved by the U.S. Food and Drug Administration. Blood 11/30/2018 9:10 AM EDT 11/30/2018 2:18 PM EDT Jacquelyn Chandler MD LAB BLOOD ORDERABLES Final R esult [facility] DPT OF LAB MED AND PAT+ [address] [place] [address] * Basic metabolic panel (11/30/2018 9:10 AM EDT) SODIUM 141 133 - 146 mmol/L [facility] CHLORIDE 103 96 - 108 mmol/L [facility] POTASSIUM 4.8 3.3 - 5.1 mmol/L [facility] CO2 26 21 - 35 mmol/L [facility] BUN 18 6 - 19 mg/dL [facility] CREATININE 0.90 0.5 - 1.5 mg/dL [facility] GLUCOSE 95 70 - 99 mg/dL [facility] CALCIUM 9.7 8.4 - 10.3 mg/dL [facility] EGFR 69 >59 mL/min/1.7 3m2 [facility] Comment:If patient is black, multiply result by 1.159. Estimated glomerular filtration rate calculated using the CKD-EPI equation. ANION GAP 17 10 - 20 mmol/L [facility] Blood 11/30/2018 9:10 AM EDT 11/30/2018 9:17 AM EDT Jacquelyn Chandler MD LAB BLOOD ORDERABLES Final R esult [facility] [address] [place] [address] * (ABNORMAL) Lipid panel (11/30/2018 9:10 AM EDT) HDL 45 mg/dL [facility] Comment: Interpretation <40 mg/dL: Low HDL cholesterol (major risk factor for CHD) Greater than or equal to 60 mg/dL: High HDL cholesterol ( negative risk factor for CHD) HDL - cholesterol is affected by a number of factors, e.g. smoking, excerise, hormones, sex and age. CHOLESTEROL 323(H) 0 - 240 mg/dL [facility] TRIGLYCERIDES 222(H) 30 - 160 mg/dL [facility] LDL 234(H) 50 - 129 mg/dL [facility] Comment: LDL levels in terms of risk for coronary heart disease: <100 mg/dL: Optimal 100-129 mg/dL: Near or above optimal 130-159 mg/dL: Borderline high 160-189 mg/dL: High >190 mg/dL: Very High CARDIAC RISK RATIO 7.2(H) 3.3 - 4.4 [facility] Blood 11/30/2018 9:10 AM EDT 11/30/2018 9:17 AM EDT Jacquelyn Chandler MD LAB BLOOD ORDERABLES Final R esult Performing Organization Address [facility] Co de Phone Number [address] [address] * (ABNORMAL) Lyme screen with reflex to Western blot, blood (11/30/2018 9:10 AM EDT) Lyme AB IgG Negative Negative [facility] Lyme AB IgM Equivocal(A) Negative [facility] Comment:The Lyme Disease Ant ibody, Confirmation, Serum (Western Blot) has been reflexed. The results will follow. Blood 11/30/2018 9:10 AM EDT 11/30/2018 9:17 AM EDT Jacquelyn Chandler MD LAB BLOOD ORDERABLES Final R esult Performing Organization Address [facility]/ZIP Co de Phone Number [address] [address] * Sedimentation rate (ESR) (11/30/2018 9:10 AM EDT) ESR 17 0 - 30 mm/h [facility] Blood 11/30/2018 9:10 AM EDT 11/30/2018 9:17 AM EDT us Jacquelyn Chandler MD LAB BLOOD ORDERABLES Final R esult Performing Organization Address City/[facility]/ZIP Co de Phone Number [address] [address] * CPK (creatine kinase) (11/30/2018 9:10 AM EDT) CREATINE KINASE 40 21 - 215 U/L [facility] Blood 11/30/2018 9:10 AM EDT 11/30/2018 9:17 AM EDT us Jacquelyn Chandler MD LAB BLOOD ORDERABLES Final R esult Performing Organization Address [facility] Co de Phone Number [address] [address] * CCP IgG antibodies (11/30/2018 9:10 AM EDT) ANTI-CCP IGG <8 0 - 16 U/mL [facility] Blood 11/30/2018 9:10 AM EDT 11/30/2018 9:17 AM EDT us Jacquelyn Chandler MD LAB BLOOD ORDERABLES Final R esult Performing Organization Address City/[facility] Co de Phone Number [address] [address] * CBC and differential (11/30/2018 9:10 AM EDT) WBC 5.14 3.40 - 11.20 K/uL [facility] RBC 4.77 3.80 - 4.80 M/uL [facility] HGB 13.3 12.0 - 15.0 g/dL [facility] HCT 40.6 36.0 - 46.0 % [facility] PLT 283 130 - 400 K/uL [facility] MCV 85.1 79.0 - 98.0 fL [facility] MCH 27.9 27.0 - 34.8 pg [facility] MCHC 32.8 31.5 - 36.0 g/dL [facility] RDW 13.5 10.8 - 14.6 % [facility] MPV 11.2 9.4 - 12.4 fl [facility] NRBC 0.00 0.00 /100 WBCs [facility] ABSOLUTE NRBC 0.00 0.00 K/uL [facility] DIFF METHOD Auto [facility] NEUTS 60.6 45.30 - 77.70 % [facility] LYMPHS 30.0 12.30 - 39.70 % [facility] MONOS 6.2 4.10 - 12.80 % [facility] EOS 1.8 0 - 7.2 % [facility] BASOS 1.2 0 - 2.80 % [facility] Granulocytes, immature (%) 0.2 0.0 - 0.9 % [facility] ABSOLUTE NEUTS 3.12 1.40 - 7.70 K/uL [facility] ABSOLUTE LYMPHS 1.54 0.60 - 3.20 K/uL [facility] ABSOLUTE MONOS 0.32 0.11 - 0.59 K/uL [facility] ABSOLUTE EOS 0.09 0.01 - 0.50 K/uL [facility] ABSOLUTE BASOS 0.06 0.00 - 0.08 K/uL [facility] Granulocytes, immature 0.01 0.00 - 0.05 K/uL [facility] Blood 11/30/2018 9:10 AM EDT 11/30/2018 9:17 AM EDT Jacquelyn Chandler MD LAB BLOOD ORDERABLES Final R esult Performing Organization Address City/[facility]/ZIP Co de Phone Number [address] [address] * (ABNORMAL) C-Reactive Protein (11/30/2018 9:10 AM EDT) C REACTIVE PROTEIN 8.6(H) 0.0 - 4.0 mg/L [facility] Blood 11/30/2018 9:10 AM EDT 11/30/2018 9:17 AM EDT us Jacquelyn Chandler MD LAB BLOOD ORDERABLES Final R esult Performing Organization Address City/[facility]/ZIP Co de Phone Number [address] [address] * Antinuclear antibody (NEGAR) (11/30/2018 9:10 AM EDT) NEGAR SCREEN ON HEP 2 Negative Negative [facility] Blood 11/30/2018 9:10 AM EDT 11/30/2018 9:17 AM EDT Jacquelyn Chandler MD LAB BLOOD ORDERABLES Final R esult [facility] [address] [place] [address] documented in this encounter Visit Diagnoses Diagnosis Pain in joint, multiple sites- Primary Hyperlipidemia, unspecified hyperlipidemia type Annual physical exam Routine general medical examination at a health care facility Mild neurocognitive disorder Other abnormalities of gait and mobility- Primary documented in this encounter Additional Health Concerns Infection Onset Date Last Indicated Resolved Time CoV-Risk 12/21/2021 12/21/2021 01/01/2022 1:22 AM EDT documented as of this encounter Care Teams Railroad Police Relationship Specialty Start Date End Date Jacquelyn Chandler MD [address] [place] [address] PCP - General Internal Medicine 12/01/17 01/28/23 Jessy Andersen NP [address] [place] [address] PCP - General Nurse Practitioner 01/29/23 documented as of this encounter Additional Source Comments The information contained in this document represents components of the legal health record. It is not the complete legal health record.[facility]
--- OUTSIDE RECORDS SUMMARY | 2024-11-08 13:11 | XMS_ITS | Encounter Summary ---
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 Not on file documented as of this encounter Plan of Treatment Upcoming Encounters Date Type Department Care Team (Late st Contact Info) Description 09/28/2024 Procedure Pass [address] [place] [address] 11/14/2024 11:30 AM EDT Office Visit [facility] [address] [place] [address] Brooke Pressley MD [address] [address] Kim Braun, PT [address] [place] [address] 11/21/2024 11:30 AM EDT Office Visit [facility] [address] [place] [address] Brooke Pressley MD [address] [address] Kim Braun, PT [address] [place] [address] 11/28/2024 11:30 AM EDT Office Visit [facility] [address] [place] [address] Brooke Pressley MD [address] [address] Kim Braun, PT [address] [place] [address] 05/10/2025 9:15 AM EDT Appointment [address] [place] [address] Jessy Andersen, AMBIKA [address] [place] [address] documented as of this encounter Results * (ABNORMAL) Lipid panel (03/08/2019 8:09 AM EST) HDL 44 mg/dL [facility] Comment: Interpretation <40 mg/dL: Low HDL cholesterol (major risk factor for CHD) Greater than or equal to 60 mg/dL: High HDL cholesterol ( negative risk factor for CHD) HDL - cholesterol is affected by a number of factors, e.g. smoking, excerise, hormones, sex and age. CHOLESTEROL 205 0 - 240 mg/dL [facility] TRIGLYCERIDES 220(H) 30 - 160 mg/dL [facility] LDL 117 50 - 129 mg/dL [facility] Comment: LDL levels in terms of risk for coronary heart disease: <100 mg/dL: Optimal 100-129 mg/dL: Near or above optimal 130-159 mg/dL: Borderline high 160-189 mg/dL: High >190 mg/dL: Very High CARDIAC RISK RATIO 4.7(H) 3.3 - 4.4 C [facility] Blood 03/08/2019 8:09 AM EST 03/08/2019 8:15 AM EST us Jacquelyn Chandler MD LAB BLOOD ORDERABLES Final R esult Performing Organization Address City/State/[facility] Co de Phone Number [address] [address] documented in this encounter Visit Diagnoses Diagnosis Hyperlipidemia, unspecified hyperlipidemia type- Primary Other abnormalities of gait and mobility- Primary documented in this encounter Additional Health Concerns Infection Onset Date Last Indicated Resolved Time CoV-Risk 12/21/2021 12/21/2021 01/01/2022 1:22 AM EDT documented as of this encounter Care Teams Soda Column Operator Relationship Specialty Start Date End Date Jacquelyn Chandler MD [address] [place] [address] [email or web address] PCP - General Internal Medicine 12/01/17 01/28/23 Jessy Andersen NP [address] [place] [address] PCP - General Nurse Practitioner 01/29/23 documented as of this encounter Additional Source Comments The information contained in this document represents components of the legal health record. It is not the complete legal health record.[facility]
--- OUTSIDE RECORDS SUMMARY | 2024-11-08 13:11 | XMS_ITS | Encounter Summary ---
Author Organization [facility] Address [address] [place] [address] Phone Care Team Providers Care Dock Operations Supervisor Name Role Phone Jacquelyn Chandler MD Primary Care Provider [phone] Jessy Andersen NP Primary Care Provider Reason for Referral * Outpatient Procedure - Closed Specialty Diagnoses / Procedures Referred By Gabriele canales Referred To Contact Radiology Diagnoses Abdominal pain, epigastric Nausea Procedures NM Gastric Emptying Seth Jeter MD Phone: tel: fax: mailto:[email or web address] Referral ID Status Reason Start Date Expiration Date Visits Re quested Visits Authorized [id number] Closed 06/07/2018 06/07/2019 1 1 Encounter Details Date Type Department Care Team (Latest Contact Info) Description 06/07/2018 Transcribe Orders Virtual Department [address] [place] [address] Seth Jeter MD [address] [place] [phone] [email or web address] Abdominal pain, [...] 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 Not on file Not on file documented as of this encounter Plan of Treatment Upcoming Encounters Date Type Department Care Team (Late st Contact Info) Description 09/28/2024 Procedure Pass [facility] - [address] [place] [address] 11/14/2024 11:30 AM EDT Office Visit [facility] [address] [place] [address] Brooke Pressley MD [address] [address] Kim Braun, PT [address] [place] [address] 11/21/2024 11:30 AM EDT Office Visit [facility] [address] [place] [address] Brooke Pressley MD [address] [address] Kim Braun, PT [address] [place] [address] 11/28/2024 11:30 AM EDT Office Visit [address] [address] Brooke Pressley MD [address] [address] Kim Braun, PT [address] [place] [address] 05/10/2025 9:15 AM EDT Appointment [address] [place] [address] Jessy Andersen, AMBIKA [address] [place] [address] documented as of this encounter Results * [...] normal limits. IMPRESSION: Normal study. POS [id number] us Seth Jeter MD IMG NM ABDOMEN Final Result * US ABDOMEN LIMITED RIGHT UPPER QUADRANT (06/30/2018 8:28 AM EDT) Anatomical Region Laterality Modality Abdomen Ultrasound 06/30/2018 8:22 AM EDT Impressions 06/30/2018 8:33 AM EDT No findings to account for the patient's symptoms. POS [id number] Narrative 06/30/2018 8:33 AM EDT COMPARISON: None. [...] to account for the patient's symptoms. POS [id number] Seth Jeter MD [facility] [place] ABDOMEN Final Result documented in this encounter Visit Diagnoses Diagnosis Abdominal pain, epigastric- Primary Nausea Nausea alone Abdominal pain, epigastric Nausea Nausea alone Abdominal pain, epigastric Nausea Nausea alone Other abnormalities of gait and mobility- Primary documented in this encounter Additional Health Concerns Infection Onset Date Last Indicated Resolved Time CoV-Risk 12/21/2021 12/21/2021 01/01/2022 1:22 AM EDT documented as of this encounter Care Teams Dock Operations Supervisor Relationship Specialty Start Date End Date Jacquelyn Chandler MD [address] [place] [phone] PCP - General Internal Medicine 12/01/17 01/28/23 Jessy Andersen NP [address] [place] [address] PCP - General Nurse Practitioner 01/29/23 documented as of this encounter Additional Source Comments The information contained in this document represents components of the legal health record. It is not the complete legal health record.[facility]
--- OUTSIDE RECORDS SUMMARY | 2024-11-08 13:12 | XMS_ITS | Encounter Summary ---
Author Organization [facility] Address [address] [address] Phone Care Team Providers Care Tug Boat Captain Name Role Phone Jacquelyn Chandler MD Primary Care Provider Jessy Andersen NP Primary Care Provider Encounter Details Date Type Department Care Team (Latest Contact Info) Description 11/15/2020 Transcribe Orders Virtual Department 30 [place] [address] Seth Jeter MD [address] [place] [address] [email or web address] Encounter for laboratory testing for COVID-19 virus [...] Contact Info) Description 09/28/2024 Procedure Pass [facility] - [address] [place] [address] 11/14/2024 11:30 AM EDT Office Visit [facility] [address] [place] [address] Brooke Pressley MD [address] [address] Kim Braun, PT [address] [place] [address] [email or web address] 11/21/2024 11:30 AM EDT Office Visit [facility] [address] [place] [address] Brooke Pressley MD [address] [address] Kim Braun, PT [address] [place] [address] [email or web address] 11/28/2024 11:30 AM EDT Office Visit [facility] [address] [place] [address] Brooke Pressley MD [address] [address] Kim Braun, PT [address] [place] [address] [email or web address] 05/10/2025 9:15 AM EDT Appointment [facility] - [address] [place] [address] Jessy Andersen, MANAGER ENVIRONMENTAL [address] [place] [address] documented as of this encounter Results * COVID-19 PCR Order (11/19/2020 10:06 AM EDT) COVID-19 Comment [id number] [facility] COVID Testing Status Sent to [facility] Micro Lab [facility] Other 11/19/2020 10:0 6 AM EDT 11/19/2020 5:03 PM EDT Seth Jeter MD BODY FLUIDS AND STOOLS ORDER GABBI Final Result [facility] [address] [place] [address] documented in this encounter Visit Diagnoses Diagnosis Encounter for laboratory testing for COVID-19 virus- Primary Other abnormalities of gait and mobility- Primary documented in this encounter Additional Health Concerns Infection Onset Date Last Indicated Resolved Time CoV-Risk 12/21/2021 12/21/2021 01/01/2022 1:22 AM EDT documented as of this encounter Care Teams Tug Boat Captain Relationship Specialty Start Date End Date Jacquelyn Chandler MD [address] [place] [address] PCP - General Internal Medicine 12/01/17 01/28/23 Jessy Andersen NP [address] [place] [address] PCP - General Nurse Practitioner 01/29/23 documented as of this encounter Additional Source Comments The information contained in this document represents components of the legal health record. It is not the complete legal health record.[facility]
--- OUTSIDE RECORDS SUMMARY | 2024-11-08 13:12 | XMS_ITS | Encounter Summary ---
Author Organization [facility] Address [address] [address] Phone Care Team Providers Care Nutrition Educator Name Role Phone Jacquelyn Chandler MD Primary Care Provider Jessy Andersen NP Primary Care Provider Encounter Details Date Type Department Care Team (Late st Contact Info) Description 09/22/2022 Procedure Pass [facility] [address] [place] [address] Social History Tobacco Use Types Packs/Day Years [...] st Contact Info) Description 09/28/2024 Procedure Pass [address] [place] [address] 11/14/2024 11:30 AM EDT Office Visit [facility] [address] [place] [address] Brooke Pressley MD [address] [address] Kim Braun, PT [address] [place] [address] 11/21/2024 11:30 AM EDT Office Visit [facility] [address] [place] [address] Brooke Pressley MD [address] [address] Kim Braun, PT [address] [place] [address] [email or web address] 11/28/2024 11:30 AM EDT Office Visit [address] [address] Brooke Pressley MD [address] [address] Kim Braun, PT 380 [facility] [place] [address] 05/10/2025 9:15 AM EDT Appointment [address] [place] [address] Jessy Andersen PRACTICE REPRESENTATIVE [facility] [address] documented as of this encounter Visit Diagnoses Not on filedocumented in this encounter Additional Health Concerns Assessment Noted Time PHQ-2 Depression Total Score: 0 09/02/19 10:16 AM EDT documented as of this encounter Care Teams Nutrition Educator Relationship Specialty Start Date End Date Jacquelyn Chandler MD [address] [place] [address] PCP - General Internal Medicine 12/01/17 01/28/23 Jessy Andersen NP [address] [place] [address] PCP - General Nurse Practitioner 01/29/23 documented as of this encounter Additional Source Comments The information contained in this document represents components of the legal health record. It is not the complete legal health record.[facility]
--- OUTSIDE RECORDS SUMMARY | 2024-11-08 13:12 | XMS_ITS | Encounter Summary ---
Author Organization [facility] Address [address] [address] Phone Care Team Providers Care Play Leader Name Role Phone Jacquelyn Chandler MD Primary Care Provider Jessy Andersen NP Primary Care Provider Encounter Details Date Type Department Care Team (Late st Contact Info) Description 09/01/2022 Procedure Pass [facility], [address] [place] [address] Social History Tobacco Use Types Packs/Day Years [...] st Contact Info) Description 09/28/2024 Procedure Pass [address] [place] [address] 11/14/2024 11:30 AM EDT Office Visit [facility] [address] [place] [address] Brooke Pressley MD [address] [address] Kim Braun, PT 380 [place] [address] 11/21/2024 11:30 AM EDT Office Visit [address] [address] Brooke Pressley MD [address] [address] Kim Braun, PT 380 [place] [address] 11/28/2024 11:30 AM EDT Office Visit [address] [address] Brooke Pressley MD [address] [address] Kim Braun, PT 380 [place] [address] 05/10/2025 9:15 AM EDT Appointment [address] [place] [address] Jessy Andersen OIL WELL ENGINEER 73 [place] [address] documented as of this encounter Visit Diagnoses Not on filedocumented in this encounter Additional Health Concerns Assessment Noted Time PHQ-2 Depression Total Score: 0 09/02/19 10:16 AM EDT documented as of this encounter Care Teams Play Leader Relationship Specialty Start Date End Date Jacquelyn Chandler MD [address] [address] PCP - General Internal Medicine 12/01/17 01/28/23 Jessy Andersen NP [address] [place] [address] PCP - General Nurse Practitioner 01/29/23 documented as of this encounter Additional Source Comments The information contained in this document represents components of the legal health record. It is not the complete legal health record.[facility]
--- OUTSIDE RECORDS SUMMARY | 2024-11-08 13:12 | XMS_ITS | Encounter Summary ---
Author Organization [facility] Address [address] [place] [address] Phone Care Team Providers Care Glass Polisher Name Role Phone Jacquelyn Chandler MD Primary Care Provider Jessy Andersen NP Primary Care Provider Encounter Details Date Type Department Care Team (Late st Contact Info) Description 09/12/[address] [facility] [address] [place] [address] Social History Tobacco Use Types Packs/Day Years [...] (Late Contact Info) Description 09/28/2024 Procedure Pass [address] [place] [address] 11/14/2024 11:30 AM EDT Office Visit [facility] 380 [place] [address] Brooke Pressley MD [address] [address] Kim Braun, PT 380 [place] [address] [email or web address] 11/21/2024 11:30 AM EDT Office Visit [facility] 380 [place] [address] Brooke Pressley MD [address] [address] Kim Braun, PT 380 [place] [address] [email or web address] 11/28/2024 11:30 AM EDT Office Visit [address] [address] Brooke Pressley MD [address] [address] Kim Braun, PT 380 [place] [address] [email or web address] 05/10/2025 9:15 AM EDT Appointment [facility] - [address] [place] [address] Jessy Andersen, AMBIKA 73 [place] [address] documented as of this encounter Visit Diagnoses Not on filedocumented in this encounter Additional Health Concerns Infection Onset Date Last Indicated Resolved Time CoV-Risk 12/21/2021 12/21/2021 01/01/2022 1:22 AM EDT documented as of this encounter Care Teams Glass Polisher Relationship Specialty Start Date End Date Jacquelyn Chandler MD [address] [place] [address] [email or web address] PCP - General Internal Medicine 12/01/17 01/28/23 Jessy Andersen NP [address] [place] [address] PCP - General Nurse Practitioner 01/29/23 documented as of this encounter Additional Source Comments The information contained in this document represents components of the legal health record. It is not the complete legal health record.[facility]
--- OUTSIDE RECORDS SUMMARY | 2024-11-08 13:12 | XMS_ITS | Encounter Summary ---
Author Organization [facility] Address [address] [place] [address] Phone Care Team Providers Care Flight Paramedic Name Role Phone Jacquelyn Chandler MD Primary Care Provider Jessy Andersen NP Primary Care Provider Encounter Details Date Type Department Care Team (Late st Contact Info) Description 09/17/2020 Procedure Pass [address] [place] [address] Social History Tobacco Use Types Packs/Day Years [...] st Contact Info) Description 09/28/2024 Procedure Pass [address] [place] [address] 11/14/2024 11:30 AM EDT Office Visit [address] [address] Brooke Pressley MD [address] [address] Kim Braun, PT 380 [place] [address] 11/21/2024 11:30 AM EDT Office Visit [facility] 380 [place] [address] Brooke Pressley MD [address] [address] Kim Braun, PT 380 [place] [address] 11/28/2024 11:30 AM EDT Office Visit [address] [address] Brooke Pressley MD [address] [address] Kim Braun, PT 380 [place] [address] 05/10/2025 9:15 AM EDT Appointment [facility] - [address] [place] [address] [facility] [address] [place] [address] documented as of this encounter Visit Diagnoses Not on filedocumented in this encounter Additional Health Concerns Infection Onset Date Last Indicated Resolved Time CoV-Risk 12/21/2021 12/21/2021 01/01/2022 1:22 AM EDT documented as of this encounter Care Teams Flight Paramedic Relationship Specialty Start Date End Date Jacquelyn Chandler MD [address] [address] [email or web address] PCP - General Internal Medicine 12/01/17 01/28/23 Jessy Andersen NP [address] [address] PCP - General Nurse Practitioner 01/29/23 documented as of this encounter Additional Source Comments The information contained in this document represents components of the legal health record. It is not the complete legal health record.[facility]
--- OUTSIDE RECORDS SUMMARY | 2024-11-08 13:12 | XMS_ITS | Encounter Summary ---
Author Organization [facility] Address [address] [place] [address] Phone Care Team Providers Care Gardening Manager Name Role Phone Jacquelyn Chandler MD Primary Care Provider Jessy Andersen NP Primary Care Provider Encounter Details Date Type Department Care Team (Latest Contact Info) Description 06/18/2020 Transcribe Orders [address] [place] [address] Jacquelyn Chandler MD [address] [place] [address] [email or web address] Screening examination for pulmonary tuberculosis (Primary Dx); [...] st Contact Info) Description 09/28/2024 Procedure Pass [address] [place] [address] 11/14/2024 11:30 AM EDT Office Visit [facility] [address] [place] [address] Brooke Pressley MD [address] [address] Kim Braun, PT 380 [place] [address] [email or web address] 11/21/2024 11:30 AM EDT Office Visit [facility] [address] [place] [address] Brooke Pressley MD [address] [address] Kim Braun, PT 380 [place] [address] [email or web address] 11/28/2024 11:30 AM EDT Office Visit [address] [address] Brooke Pressley MD [address] [address] Kim Braun, PT 380 [place] [address] [email or web address] 05/10/2025 9:15 AM EDT Appointment [facility] [address] [place] [address] Jessy Andersen, AMBIKA [address] [place] [address] documented as of this encounter Results * T spot TB test (06/18/2020 8:42 AM EDT) T-SPOT.TB Negative [facility] Comment: (NOTE) Normal Value: Negative [...] Spot Count Corrected For Neg Control 0 [email or web address] Panel B Spot Count Corrected For Neg Control 0 [email or web address] Negative Control Passed [email or web address] Positive Control Passed [facility] Blood 06/18/2020 8:42 AM EDT 06/18/2020 8:47 AM EDT Jacquelyn Chandler MD LAB BLOOD ORDERABLES Final R esult [email or web address] [address] [place] [phone] [phone] * (ABNORMAL) 25-OH vitamin D (06/18/2020 8:42 AM EDT) 25 OH VIT D (TOTAL) 26(L) 30 - 60 ng/mL [facility] Blood 06/18/2020 8:42 AM EDT 06/18/2020 8:47 AM EDT Jacquelyn Chandler MD LAB BLOOD ORDERABLES Final R esult [facility] [address] [place] [address] * Lipid panel (06/18/2020 8:42 AM EDT) HDL 50 mg/dL [facility] Comment: Interpretation <40 mg/dL: Low HDL cholesterol (major risk factor for CHD) Greater than or equal to 60 mg/dL: High HDL cholesterol ( negative risk factor for CHD) HDL - cholesterol is affected by a number of factors, e.g. smoking, excerise, hormones, sex and age. CHOLESTEROL 202 0 - 240 mg/dL [facility] TRIGLYCERIDES 118 30 - 160 mg/dL [facility] LDL 128 50 - 129 mg/dL [facility] Comment: LDL levels in terms of risk for coronary heart disease: <100 mg/dL: Optimal 100-129 mg/dL: Near or above optimal 130-159 mg/dL: Borderline high 160-189 mg/dL: High >190 mg/dL: Very High CARDIAC RISK RATIO 4.0 3.3 - 4.4 C [facility] Blood 06/18/2020 8:42 AM EDT 06/18/2020 8:47 AM EDT us Jacquelyn Chandler MD LAB BLOOD ORDERABLES Final R esult Performing Organization Address City/[facility]/ZIP Co de Phone Number [address] [address] * CPK (creatine kinase) (06/18/2020 8:42 AM EDT) CREATINE KINASE 48 21 - 215 U/L [facility] Blood 06/18/2020 8:42 AM EDT 06/18/2020 8:47 AM EDT Jacquelyn Chandler MD LAB BLOOD ORDERABLES Final R esult Performing Organization Address City/[facility]/ZIP Co de Phone Number [address] [address] * Aspartate aminotransferase (AST) (06/18/2020 8:42 AM EDT) AST 26 0 - 37 U/L [facility] Blood 06/18/2020 8:42 AM EDT 06/18/2020 8:47 AM EDT us Jacquelyn Chandler MD LAB BLOOD ORDERABLES Final R esult Performing Organization Address City/[facility]/ZIP Co de Phone Number [address] [address] * Alanine aminotransferase (ALT) (06/18/2020 8:42 AM EDT) ALT 25 0 - 40 U/L [facility] Blood 06/18/2020 8:42 AM EDT 06/18/2020 8:47 AM EDT us Jacquelyn Chandler MD LAB BLOOD ORDERABLES Final R esult Performing Organization Address [facility] Co de Phone Number [address] [address] documented in this encounter Visit Diagnoses Diagnosis Screening examination for pulmonary tuberculosis- Primary Hyperlipidemia, unspecified hyperlipidemia type Vitamin D deficiency, unspecified Other abnormalities of gait and mobility- Primary documented in this encounter Additional Health Concerns Infection Onset Date Last Indicated Resolved Time CoV-Risk 12/21/2021 12/21/2021 01/01/2022 1:22 AM EDT documented as of this encounter Care Teams Gardening Manager Relationship Specialty Start Date End Date Jacquelyn Chandler MD [address] [place] [address] PCP - General Internal Medicine 12/01/17 01/28/23 Jessy Andersen NP [address] [place] [address] PCP - General Nurse Practitioner 01/29/23 documented as of this encounter Additional Source Comments The information contained in this document represents components of the legal health record. It is not the complete legal health record.[facility]
--- OUTSIDE RECORDS SUMMARY | 2024-11-08 13:12 | XMS_ITS | Encounter Summary ---
Author Organization [facility] Address [address] [facility] [address] [place] [address] Phone Care Team Providers Care Muskrat Trapper Name Role Phone Jessy Andersen HEEL COVER SOFTENER Primary Care Provider Encounter Details Date Type Department Care Team (Late st Contact Info) Description 09/22/2024 Transcribe Orders Virtual Department [address] [place] [address] Jessy Andersen NP [address] [place] [address] Nausea and vomiting, unspecified vomiting type (Primary [...] st Contact Info) Description 09/28/2024 Procedure Pass [facility] - [address] [place] [address] 11/14/2024 11:30 AM EDT Office Visit [facility] [address] [place] [address] Brooke Pressley MD [address] [address] Kim Braun, PT 380 [place] [address] 11/21/2024 11:30 AM EDT Office Visit [facility] [address] [place] [address] Brooke Pressley MD [address] [address] Kim Braun, PT 380 [place] [address] 11/28/2024 11:30 AM EDT Office Visit [address] [address] Brooke Pressley MD 299 [facility] [address] [place] [address] Kim Braun, PT 380 [place] [address] 05/10/2025 9:15 AM EDT Appointment [address] [place] [address] Jessy Andersen, HEEL COVER SOFTENER [facility] [address] documented as of this encounter Results * [...] Primary Nausea and vomiting, unspecified vomiting type Other abnormalities of gait and mobility- Primary documented in this encounter Additional Health Concerns Assessment Noted Time PHQ-2 Depression Total Score: 0 09/02/19 23 10:16 AM EDT documented as of this encounter Care Teams Muskrat Trapper Relationship Specialty Start Date End Date Jessy Andersen NP PCP - General Nurse Practitioner 01/29/23 documented as of this encounter Additional Source Comments The information contained in this document represents components of the legal health record. It is not the complete legal health record.[facility]
--- OUTSIDE RECORDS SUMMARY | 2024-11-08 13:12 | XMS_ITS | Encounter Summary ---
Author Organization [facility] Address [address] [facility] [address] [place] [address] Phone Care Team Providers Care Tank Cleaning Supervisor Name Role Phone Jacquelyn Chandler MD Primary Care Provider Jessy Andersen NP Primary Care Provider Encounter Details Date Type Department Care Team (Late st Contact Info) Description 08/28/2022 Procedure Pass [facility] - [address] [address] Social History Tobacco Use Types Packs/Day Years Used Date Smoking Tobacco: Never Passive Smoke Exposure: Yes Smokeless Tobacco: Never Alcohol Use Standard Drinks/Week Comments Never 0 (1 standard drink = 0.6 oz pur e alcohol) Education Answer Date Recorded Are you interested in more education? Not on rkisten e 06/27/2022 Are you concerned about learning? [...] 9:58 PM EDT Zarina Noriega RN * Mcdowell Suicide Severity Rating Scale (Screener/Recent Self-Report) Question [...] st Contact Info) Description 09/28/2024 Procedure Pass [facility] - [address] [place] [address] 11/14/2024 11:30 AM EDT Office Visit [facility] [address] [place] [address] Brooke Pressley MD 299 [facility] [address] [place] [address] Kim Braun, PT 380 [place] [address] 11/21/2024 11:30 AM EDT Office Visit [facility] [address] [place] [address] Brooke Pressley MD [address] [address] Kim Braun, PT 380 [place] [address] 11/28/2024 11:30 AM EDT Office Visit [facility] [address] [place] [address] Brooke Pressley MD [address] [address] Kim Braun, PT 380 [place] [address] 05/10/2025 9:15 AM EDT Appointment [facility] - [address] [place] [address] Jessy Andersen NP 73 [place] [address] documented as of this encounter Visit Diagnoses Not on filedocumented in this encounter Additional Health Concerns Assessment Noted Time PHQ-2 Depression Total Score: 0 07/30/19 10:09 AM EDT documented as of this encounter Care Teams Tank Cleaning Supervisor Relationship Specialty Start Date End Date Jacquelyn Chandler MD [address] [address] PCP - General Internal Medicine 12/01/17 01/28/23 Jessy Andersen NP [address] [address] PCP - General Nurse Practitioner 01/29/23 documented as of this encounter Additional Source Comments The information contained in this document represents components of the legal health record. It is not the complete legal health record.[facility]
--- OUTSIDE RECORDS SUMMARY | 2024-11-08 13:12 | XMS_ITS | Encounter Summary ---
Author Organization [facility] Address [address] [place] [address] Phone Care Team Providers Care Security Incident Response Engineer Name Role Phone Jacquelyn Chandler MD Primary Care Provider Jessy Andersen NP Primary Care Provider Encounter Details Date Type Department Care Team (Late st Contact Info) Description 04/02/2021 Transcribe Orders [facility] [address] [place] [address] Jacquelyn Chandler MD 25 [place] [address] [email or web address] Vitamin D deficiency, unspecified [...] Contact Info) Description 09/28/2024 Procedure Pass [address] [place] [address] 11/14/2024 11:30 AM EDT Office Visit [facility] [address] [place] [address] Brooke Pressley MD [address] [address] Kim Braun, PT 380 [place] [address] [email or web address] 11/21/2024 11:30 AM EDT Office Visit [facility] [address] [place] [address] Brooke Pressley MD [address] [address] Kim Braun, PT 380 [place] [address] [email or web address] 11/28/2024 11:30 AM EDT Office Visit [facility] [address] [place] [address] Brooke Pressley MD [address] [address] Kim Braun, PT 380 [place] [address] [email or web address] 05/10/2025 9:15 AM EDT Appointment [facility] [place] [address] Jessy Andersen, AMBIKA [address] [place] [address] documented as of this encounter Results * ABO and Rh (04/02/2021 9:42 AM EST) ABO/Rh A Positive [facility] Resulting Agency [facility] Blood 04/02/2021 9:42 AM EST 04/02/2021 9:45 AM EST us Jacquelyn Chandler MD BLOOD BANK TEST ORDERABLES F inal Result Performing Organization Address [facility] Co de Phone Number [address] [address] * (ABNORMAL) 25-OH vitamin D (04/02/2021 9:42 AM EST) 25 OH VIT D (TOTAL) 24(L) 30 - 60 ng/mL [facility] Blood 04/02/2021 9:42 AM EST 04/02/2021 9:45 AM EST us Jacquelyn Chandler MD LAB BLOOD ORDERABLES Final R esult Performing Organization Address [facility] de Phone Number [address] [address] documented in this encounter Visit Diagnoses Diagnosis Vitamin D deficiency, unspecified- Primary Encounter for blood typing Other abnormalities of gait and mobility- Primary documented in this encounter Additional Health Concerns Infection Onset Date Last Indicated Resolved Time CoV-Risk 12/21/2021 12/21/2021 01/01/2022 1:22 AM EDT documented as of this encounter Care Teams Security Incident Response Engineer Relationship Specialty Start Date End Date Jacquelyn Chandler MD [address] [place] [address] PCP - General Internal Medicine 12/01/17 01/28/23 Jessy Andersen NP [address] [place] [address] PCP - General Nurse Practitioner 01/29/23 documented as of this encounter Additional Source Comments The information contained in this document represents components of the legal health record. It is not the complete legal health record.[facility]
--- OUTSIDE RECORDS SUMMARY | 2024-11-08 13:12 | XMS_ITS | Encounter Summary ---
Author Organization [facility] Address [address] [place] [address] Phone Care Team Providers Care Poultry Inseminator Name Role Phone Jacquelyn Chandler MD Primary Care Provider [phone] Jessy Andersen NP Primary Care Provider Reason for Referral * Outpatient Procedure - Closed Specialty Diagnoses / Procedures Referred By Gabriele canales Referred To Contact Radiology Diagnoses TIA (transient ischemic attack) Procedures Adult Echo TTE Taqueria Aj MD [address] [place] [address], [address] [place] [address] Phone: tel: fax: [email or web address] Referral ID Status Reason Start Date Expiration Date Visits Re quested Visits Authorized [id number] Closed 09/22/2022 1 1 Encounter Details Date Type Department Care Team (Latest Contact Info) Description 09/22/2022 Transcribe Orders Virtual Department 30 [place] [address] Taqueria Aj MD [address] [place] [address], [address] [place] [address] [email or web address] TIA (transient ischemic attack) [...] st Contact Info) Description 09/28/2024 Procedure Pass [facility] - [address] [place] [address] 11/14/2024 11:30 AM EDT Office Visit [facility] [address] [place] [address] Brooke Pressley MD 299 [facility] [address] [place] [address] Kim Braun, PT 380 [place] [address] [email or web address] 11/21/2024 11:30 AM EDT Office Visit [facility] 380 [place] [address] Brooke Pressley MD [address] [address] Kim Braun, PT 380 [place] [address] [email or web address] 11/28/2024 11:30 AM EDT Office Visit [address] [address] Brooke Pressley MD [address] [address] Kim Braun, PT 380 [place] [address] [email or web address] 05/10/2025 9:15 AM EDT Appointment [facility] - [address] [place] [address] Jessy Andersen, MANAGER UTILIZATION MANAGEMENT [address] [place] [address] documented as of this encounter Results * [...] (transient ischemic attack) Unspecified transient cerebral ischemia Other abnormalities of gait and mobility- Primary documented in this encounter Additional Health Concerns Assessment Noted Time PHQ-2 Depression Total Score: 0 09/02/19 10:16 AM EDT documented as of this encounter Care Teams Poultry Inseminator Relationship Specialty Start Date End Date Jacquelyn Chandler MD [address] [place] [address] PCP - General Internal Medicine 12/01/17 01/28/23 Jessy Andersen NP [address] [place] [address] PCP - General Nurse Practitioner 01/29/23 documented as of this encounter Additional Source Comments The information contained in this document represents components of the legal health record. It is not the complete legal health record.[facility]
--- OUTSIDE RECORDS SUMMARY | 2024-11-08 13:12 | XMS_ITS | Encounter Summary ---
Author Organization [facility] Address [address] [place] [address] Phone Care Team Providers Care Cloth Spreader Name Role Phone Jacquelyn Chandler MD Primary Care Provider Jessy Andersen NP Primary Care Provider Encounter Details Date Type Department Care Team (Latest Contact Info) Description 10/09/2020 Transcribe Orders [facility] [address] [place] [address] Jacquelyn Chandler MD [address] [place] [address] [email or web address] Vitamin D deficiency, unspecified (Primary Dx); Hyperlipidemia, [...] Contact Info) Description 09/28/2024 Procedure Pass [address] [place] [address] 11/14/2024 11:30 AM EDT Office Visit [facility] [address] [place] [address] Brooke Pressley MD [address] [address] Kim Braun, PT [address] [place] [address] [email or web address] 11/21/2024 11:30 AM EDT Office Visit [facility] [address] [place] [address] Brooke Pressley MD [address] [address] Kim Braun, PT 380 [place] [address] [email or web address] 11/28/2024 11:30 AM EDT Office Visit [facility] [address] [place] [address] Brooke Pressley MD [address] [address] Kim Braun, PT 380 [place] [address] [email or web address] 05/10/2025 9:15 AM EDT Appointment [address] [place] [address] Jessy Andersen, AMBIKA [address] [place] [address] documented as of this encounter Results * (ABNORMAL) Lipid panel (10/09/2020 10:28 AM EDT) HDL 49 mg/dL [facility] Comment: Interpretation <40 mg/dL: Low HDL cholesterol (major risk factor for CHD) Greater than or equal to 60 mg/dL: High HDL cholesterol ( negative risk factor for CHD) HDL - cholesterol is affected by a number of factors, e.g. smoking, excerise, hormones, sex and age. CHOLESTEROL 182 0 - 240 mg/dL [facility] TRIGLYCERIDES 164(H) 30 - 160 mg/dL [facility] LDL 100 50 - 129 mg/dL [facility] Comment: LDL levels in terms of risk for coronary heart disease: <100 mg/dL: Optimal 100-129 mg/dL: Near or above optimal 130-159 mg/dL: Borderline high 160-189 mg/dL: High >190 mg/dL: Very High CARDIAC RISK RATIO 3.7 3.3 - 4.4 [facility] Blood 10/09/2020 10:2 8 AM EDT 10/09/2020 10:32 AM EDT Jacquelyn Chandler MD LAB BLOOD ORDERABLES Final R esult [address] [address] * (ABNORMAL) 25-OH vitamin D (10/09/2020 10:28 AM EDT) 25 OH VIT D (TOTAL) 28(L) 30 - 60 ng/mL [facility] Blood 10/09/2020 10:2 8 AM EDT 10/09/2020 10:32 AM EDT Jacquelyn Chandler MD LAB BLOOD ORDERABLES Final R esult Performing Organization Address City/[facility]/ZIP Co de Phone Number [address] [address] documented in this encounter Visit Diagnoses Diagnosis Vitamin D deficiency, unspecified- Primary Hyperlipidemia, unspecified hyperlipidemia type Other abnormalities of gait and mobility- Primary documented in this encounter Additional Health Concerns Infection Onset Date Last Indicated Resolved Time CoV-Risk 12/21/2021 12/21/2021 01/01/2022 1:22 AM EDT documented as of this encounter Care Teams Cloth Spreader Relationship Specialty Start Date End Date Jacquelyn Chandler MD [address] [place] [address] [email or web address] PCP - General Internal Medicine 12/01/17 01/28/23 Jessy Andersen NP [address] [place] [address] PCP - General Nurse Practitioner 01/29/23 documented as of this encounter Additional Source Comments The information contained in this document represents components of the legal health record. It is not the complete legal health record.[facility]
--- OUTSIDE RECORDS SUMMARY | 2024-11-08 13:12 | XMS_ITS | Encounter Summary ---
Author Organization [facility] Address [address] [place] [address] [place] [address] Phone Care Team Providers Care Tank Truck Loader Name Role Phone Jacquelyn Chandler MD Primary Care Provider Jessy Andersen NP Primary Care Provider Encounter Details Date Type Department Care Team (Latest Contact Info) Description 11/06/2020 Transcribe Orders [address] [place] [address] Nat Tam, PA 10 [place] [address] Gastroesophageal reflux disease with esophagitis, unspecified whether [...] st Contact Info) Description 09/28/2024 Procedure Pass [facility] - [address] [place] [address] 11/14/2024 11:30 AM EDT Office Visit [facility] [address] [place] [address] Brooke Pressley MD [address] [address] Kim Braun, PT 380 [place] [address] 11/21/2024 11:30 AM EDT Office Visit [facility] [address] [place] [address] Brooke Pressley MD [address] [address] Kim Braun, PT [address] [place] [address] 11/28/2024 11:30 AM EDT Office Visit [facility] [address] [place] [address] Brooke Pressley MD [address] [address] Kim Braun, PT 380 [place] [address] 05/10/2025 9:15 AM EDT Appointment [place] [address] [place] [address] Jessy Andersen NP [address] [place] [address] documented as of this encounter Results * CBC and differential (11/06/2020 10:12 AM EDT) WBC 5.70 4.00 - 11.00 K/uL [facility] RBC 4.52 3.72 - 5.30 M/uL [facility] HGB 12.7 11.4 - 15.9 g/dL [facility] HCT 38.2 34.2 - 46.8 % [facility] PLT 268 140 - 430 K/uL [facility] MCV 84.5 78.0 - 97.0 fL [facility] MCH 28.1 25.0 - 33.0 pg [facility] MCHC 33.2 32.0 - 36.0 g/dL [facility] RDW 13.2 11.0 - 16.0 % [facility] MPV 11.6 8.4 - 12.8 fl [facility] NRBC 0.00 0 /100 WBCs [facility] ABSOLUTE NRBC 0.00 0 K/uL [facility] DIFF METHOD Auto [facility] NEUTS 53.7 43.0 - 75.0 % [facility] LYMPHS 36.7 18.2 - 47.4 % [facility] MONOS 6.7 4.00 - 11.00 % [facility] EOS 1.6 0.0 - 8.0 % [facility] BASOS 0.9 0.0 - 2.0 % [facility] Granulocytes, immature (%) 0.4 0.0 - 0.9 % [facility] ABSOLUTE NEUTS 3.07 1.80 - 7.70 K/uL [facility] ABSOLUTE LYMPHS 2.09 1.00 - 3.10 K/uL [facility] ABSOLUTE MONOS 0.38 0.20 - 0.80 K/uL [facility] ABSOLUTE EOS 0.09 0.00 - 0.80 K/uL [facility] ABSOLUTE BASOS 0.05 0.00 - 0.09 K/uL [facility] Granulocytes, immature 0.02 0.00 - 0.05 K/uL [facility] Blood 11/06/2020 10:1 2 AM EDT 11/06/2020 10:15 AM EDT us Nat GONZALEZ LAB BLOOD ORDERABLES Final Result [address] [address] documented in this encounter Visit Diagnoses Diagnosis Gastroesophageal reflux disease with esophagitis, unspecified whether hemorrhage- Primary Other abnormalities of gait and mobility- Primary documented in this encounter Additional Health Concerns Infection Onset Date Last Indicated Resolved Time CoV-Risk 12/21/2021 12/21/2021 01/01/2022 1:22 AM EDT documented as of this encounter Care Teams Tank Truck Loader Relationship Specialty Start Date End Date Jacquelyn Chandler MD [address] [place] [address] [email or web address] PCP - General Internal Medicine 12/01/17 01/28/23 Jessy Andersen NP [address] [place] [address] PCP - General Nurse Practitioner 01/29/23 documented as of this encounter Additional Source Comments The information contained in this document represents components of the legal health record. It is not the complete legal health record.[facility]
--- OUTSIDE RECORDS SUMMARY | 2024-11-08 13:13 | XMS_ITS | Clinical Summary ---
Author Organization [facility] Address [address] [address] Phone Care Team Providers Care Portrait Photographer Name Role Phone JaleesaDinh acosta Tyra APPLE [...] BY MOUTH DAILY. CALL OFFICE FOR FOLLOWUP [phone] 12/10/19 22 Active levalbuterol (XOPENEX) 0.31 mg/3 [...] seven (7) days, may remove with nail armenian remover and continue cycle. 6.6 mL 3 [...] virus 08/01 Atherosclerosis of coronary artery of [place] he[place] 08/01/2021 Assessment & Plan (02/13/2022 7:02 AM EST): F/u Cardiology as discussed Assessment & Plan (08/01/2021 1:42 PM EDT): Follow up with Cardiology as discussed Requesting 2nd opinion from [facility] Hyperlipidemia 08/01/2021 Assessment & Plan (02/13/2022 [...] PM EDT): Per your request, referral to [facility] given your persistant symptoms Tick bite [...] Plan (10/21/2019 3:04 PM EDT): Unlikely of DISTRICT PLANT ENGINEER origin Assessment & Plan (09/27/2018 3:51 PM [...] Encounters Date Type Department Care Team Description 11/07/2024 11:30 AM EDT Office Visit [address] [address] Brooke Pressley MD Sharkey, Linda Ann, PT Other abnormalities of gait and mobility (Primary Dx) 10/17/2024 9:15 AM EDT Office Visit [address] [address] Brooke Pressley MD Sharkey, Linda Ann, PT Other abnormalities of gait and mobility (Primary Dx) 10/06/2024 10:30 AM EDT Office Visit [address] [place] [address] Brooke Pressley MD Sharkey, Linda Ann, PT Other abnormalities of gait and mobility (Primary Dx) 10/06/2024 Plan of Care Documentation [facility] [address] [place] [address] 10/04/2024 10:12 AM EDT - 10/04/2024 11:59 PM EDT Hospital Encounter [facility], Bone Density - [facility] [address] [place] [address] Dinh Keane NP Discharge Disposition: Home or Self Care 10/04/2024 9:23 AM EDT - 10/04/2024 10:11 AM EDT Hospital Encounter [facility] [address] [place] [address] Dinh Keane NP Discharge Disposition: Home or Self Care 10/03/2024 9:42 AM EDT - 10/03/2024 11:59 PM EDT Hospital Encounter [facility] - [address] [place] [address] Dinh Keane NP Discharge Disposition: Home or Self Care 09/28/2024 Transcribe Orders Virtual Department [address] [place] [address] Dinh Keane NP Breast screening (Primary Dx); Nausea and vomiting, unspecified vomiting type 09/22/2024 Transcribe Orders Virtual Department [address] [place] [address] Dinh Keane NP Nausea and vomiting, unspecified vomiting type (Primary Dx) 09/06/2024 Transcribe Orders [facility] [address] [place] [address] Angela Olson Encounter for rehabilitation (Primary Dx) [...] Contact Info) Description 09/28/2024 Procedure Pass [facility] - [address] [place] [address] 11/14/2024 11:30 AM EDT Office Visit [facility] [address] [place] [address] Brooke Pressley MD [address] [address] Kim Braun, PT [address] [place] [address] 11/21/2024 11:30 AM EDT Office Visit [facility] [address] [place] [address] Brooke Pressley MD [address] [address] Kim Braun, PT [address] [place] [address] 11/28/2024 11:30 AM EDT Office Visit [facility] [address] [place] [address] Brooke Pressley MD [address] [address] Kim Braun, PT [address] [place] [address] 05/10/2025 9:15 AM EDT Appointment [place] [address] [place] [address] Dinh Keane, PIN FEATHER MACHINE OPERATOR [address] [place] [address] Health Maintenance Due Date Last Done Comments [...] 2024 02/05/2021, 07/02/2020, 06/11/2020 MAMMOGRAM 02/03/2025 02/03/2023, 08/30, 04/02/2021, Additional history exists SCREENING FOR DIABETES [...] Referred By: DINH KEANE Indications: Osteoporosis Scanner: Z-good A with serial# of [id number] [facility] (DXA) 10/04/24 Details of [...] -2.5), or Osteoporosis (T-score <= -2.5). [facility] T-scores are compared to peak bone density [...] Lauryn Serrano MD - 10/05/2024 Referred By: IDNH KEANE Indications: Osteoporosis Scanner: Z-good A with serial# of [id number] located at [facility] Bone Density Scan (DXA) 10/04/24 Details [...] -2.5), or Osteoporosis (T-score <= -2.5). [facility] T-scores are compared to peak bone density [...] results. IMPRESSION: Interpretation: Normal bone mineral density. [facility] Tyra Keane NP IMG BD BONE DENSITY DE XA Final Result * H PYLORI UREA BREATH TEST (10/04/2024 10:32 AM EDT) H.PYLORI C UREA BRTH Negative Negative [facility] [place] [place] Comment: (NOTE) Result indicates the absence of current Helicobacter pylori infection. Blood 10/04/2024 10:3 2 AM EDT 10/04/2024 10:35 AM EDT Dinh Keane NP LAB BLOOD ORDERABLES F inal Result [facility] [address] [place] [address] [place] [address] * US ABDOMEN LIMITED RIGHT UPPER QUADRANT [...] clinician's provided indication for this examination in [facility]: Outside Radiology Order; Nausea/vomiting; EPIGASTRIC PAIN TECHNIQUE: [...] clinician's provided indication for this examination in [facility]:Outside Radiology Order; Nausea/vomiting; EPIGASTRIC PAIN TECHNIQUE: US [...] Noovert hydronephrosis. No sonographically evident renal calculi. [facility] Tyra Keane PIN FEATHER MACHINE OPERATOR IMG US ABDOMEN Final Result * BI [...] be notified of the results and recommendations. [facility] Tyra Keane PIN FEATHER MACHINE OPERATOR IMG MG EXAMS Final Result * Hepatitis C antibody, qualitative (11/27/2021 11:43 AM EDT) HCV NON-REACTIV E NON-REACTI VE [facility] Blood 11/27/2021 11:4 3 AM EDT 11/27/2021 11:47 AM EDT us Jacquelyn Chandler MD LAB BLOOD ORDERABLES Final R esult [address] [address] * COLONOSCOPY FOR RESULT ENTRY ONLY (08/12/2018) Colonoscopy 10 yr recall us Historical Provider HEALTH MAINTENANCE Final Result from Last 3 Months or Most Recently Relevant to Health Maintenance Insurance ([place]) [address] [place] [id number] [facility] DUAL MEDICARE REPLACEMENT [facility] DUAL MEDICARE REPLACEMENT Member Subscriber Plan / Payer (Ef fective 2021-Present) Name:MerylDanette Relation to Subscriber:Self Name:Tushar Shethith Payer ID:[id number] (NAIC) Group ID:Not on file Type:Medicare Address: [address] [place] [id number] [facility] DUAL MEDICARE REPLACEMENT Care Teams Portrait Photographer Relationship Specialty Start Date End Date Dinh Keane NP PCP - General Nurse Practitioner 01/29/23 Additional Source Comments The information contained in this document represents components of the legal health record. It is not the complete legal health record.[facility]
--- OUTSIDE RECORDS SUMMARY | 2024-11-08 13:13 | XMS_ITS | Encounter Summary ---
Author Organization [facility] Address [address] [place] [address] Phone Care Team Providers Care Submarine Worker Name Role Phone Jacquelyn Chandler MD Primary Care Provider Jessy Andersen NP Primary Care Provider Encounter Details Date Type Department Care Team (Late st Contact Info) Description 08/01/2021 Procedure Pass [address] [place] [address] Social History Tobacco Use Types Packs/Day Years [...] st Contact Info) Description 09/28/2024 Procedure Pass [address] [place] [address] 11/14/2024 11:30 AM EDT Office Visit [address] [address] Brooke Pressley MD [address] [address] Kim Braun, PT [address] [place] [address] 11/21/2024 11:30 AM EDT Office Visit [facility] [address] [place] [address] Brooke Pressley MD [address] [address] Kim Braun, PT [address] [place] [address] 11/28/2024 11:30 AM EDT Office Visit [address] [address] Brooke Pressley MD [address] [address] Kim Braun, PT [address] [place] [address] 05/10/2025 9:15 AM EDT Appointment [facility] - [address] [place] [address] [facility] [address] [place] [address] documented as of this encounter Visit Diagnoses Not on filedocumented in this encounter Additional Health Concerns Infection Onset Date Last Indicated Resolved Time CoV-Risk 12/21/2021 12/21/2021 01/01/2022 1:22 AM EDT Assessment Noted Time PHQ-2 Depression Total Score: 0 07/30/19 10:09 AM EDT documented as of this encounter Care Teams Submarine Worker Relationship Specialty Start Date End Date Jacquelyn Chandler MD [address] [place] [address] [email or web address] PCP - General Internal Medicine 12/01/17 01/28/23 Jessy Andersen NP [address] [place] [address] PCP - General Nurse Practitioner 01/29/23 documented as of this encounter Additional Source Comments The information contained in this document represents components of the legal health record. It is not the complete legal health record.[facility]
--- OUTSIDE RECORDS SUMMARY | 2024-11-08 13:13 | XMS_ITS | Clinical Summary ---
Author Organization [employer] Address [address] [facility] [address] 7[address] [place] [address] Care Team Providers Care Assisted Living Executive Director Name Role Phone Nathaly Jessy [place] Primary Care Provider [phone] Allergies Active Allergy Reactions Criticality Noted Date [...] tabletIndications :TIA (transient ischemic attack),Atheroscl erosis of [place] coronary artery of [place] heart without angina pectoris TAKE 1 TABLET [...] complication 04/2021 Atherosclerosis of coronary artery of [place] hea rt 08/01/2021 Hyperlipidemia 08/01/2021 Overview (11/10/2022): Last Assessment & Plan: Controlled on meds Degenerative disc disease, lumbar 01/21/2019 Primary osteoarthritis of both knees 01/21/2019 Resolved Problems Problem Noted Date Diagnosed Date Resolved Date Palpitations 08/01/2021 11/11/2022 Overview (11/10/2022): Last Assessment & Plan: Unclear etiology Patient currently being evaluated by Cardiology for this Encounters Date Type Department Care Team Description 11/03/2024 Orders Only [facility] Information [facility] [address] [facility] [address] [place], [place], [facility] 10/17/[address] [place] [address] [place], [place], [facility] Fibromyalgia 10/10/2024 [address] [address] [facility] Results 10/05/2024 Results Follow-Up [address] [place] [address] [place], [place], [facility] XR bone density w SPECT lumbar 10/03/2024 Results Follow-Up [address] [place] [address] [place], [place], [facility] Abdomen Limited, Helicobacter pylori, Urea Breath Test 380100 10/03/[address] [place] [address] [place], [place], [facility] Results 09/22/2024 11:40 AM EDT Office Visit [address] [place] [address] [place], [place], [facility] Cognitive impairment (Primary Dx); Snoring; Gait instability; Epigastric pain; History of Helicobacter pylori infection; Nausea and vomiting, unspecified vomiting type; Gastroesophageal reflux disease, unspecified whether esophagitis present 09/01/2024 Orders Only [facility] Information [facility] [address] [facility] [address] [place], [place], [facility] 08/31/2024 Refill [facility] [address] [place] [address] Jessy Andersen, REFLEXOLOGIST Hyperlipidemia, unspecified hyperlipidemia type 08/08/2024 Results Follow-Up [facility] [address] [place] [address] Jessy Andersen, REFLEXOLOGIST MR Brain w/o Contrast from Last 3 Months Immunizations Immunization Administration Dates Next Due Influenza injectable quadriv alent preservative free 10/29/2015,01/19/2015 Pfizer Covid-19 Vaccine 12+ 02/05/2021, 1,06/11/2020 Tdap 10/12/2014 Family History Medical History Relation [...] Description 12/22/2024 11:40 AM EDT Office Visit [place] [facility] [address] [place] [address] [facility] [address] [place] [address] Health Maintenance Due Date Last Done Comments [...] - Risk 60-74 years 1-dose series) 2016 DTaP/Tdap/Td Vaccines (2 - Td or Tdap) 10/12/2024 10/12/2014 COVID-19 Vaccine ( season) 2024 02/05/2021, 07/02/2020, 06/11/2020 Influenza Vaccine (#1) 2024 10/29/2015, 2014 Mammogram [...] Associated Diagnosis Comments SED RATE BY MODIFIED KELVINREN Routine 11/02/2024 2:06 PM EDT CBC WITH AUTO DIFFERENTIAL Routine 11/02/2024 2:06 PM EDT AMB REFERRAL TO PULMONOLOGY Routine 11/02/2024 Moderate persistent asthma without complication HELICOBACTER PYLORI, UREA BREATH TEST Routine 10/04/2024 [...] Recently Relevant to Health Maintenance Results * Sed Rate by Modified Kelvinren (11/02/2024 2:06 PM EDT) Blood Venous blood specimen / Unknown [facility] [place] [facility] LAB BLOOD ORDERABLES Ana l Result * CBC auto differential (11/02/2024 2:06 PM EDT) Blood Venous blood specimen / Unknown [facility] LAB BLOOD ORDERABLES Ana l Result * Referral to Pulmonology (11/02/2024) [facility] OUTPATIENT REFERRAL ORDER GABBI Final Result * XR bone density w SPECT lumbar (10/04/2024) Anatomical Region Laterality Modality L-spine N/A Radiographic Yolie ging [facility] IMG DXA PROCEDURES Final Result * Helicobacter pylori, Urea Breath Test 480006 (10/04/2024) Breath (Breath) [facility] LAB BODY FLUIDS AND STOOL S ORDERABLES Final Result EXTERNAL LAB * US Abdomen Limited (10/03/2024) Anatomical Region Laterality Modality Abdomen Ultrasound [facility] IMG US PROCEDURES Final R esult * Comprehensive Metabolic Panel (08/29/2024 11:29 AM EDT) Blood Venous blood specimen / Unknown [facility] LAB BLOOD ORDERABLES Ana l Result * Referral to Neurology (08/29/2024) [facility] OUTPATIENT REFERRAL ORDER GABBI Final Result * Lipid Panel, Standard (12/16/2023) Blood Venous blood specimen / Unknown [facility] LAB BLOOD ORDERABLES Ana l Result Performing Organization Address City/State/[facility] Co de Phone Number EXTERNAL LAB * Hm Mammography (02/03/2023) Anatomical Region Laterality Modality Other Result [facility] HEALTH MAINTENANCE Edited Result - Final * Colonoscopy (08/12/2018) Colonoscopy Normal Normal [facility] HEALTH MAINTENANCE Final Result from Last 3 Months or Most Recently Relevant to Health Maintenance Insurance [facility] [place] [phone] [facility] Care Teams Assisted Living Executive Director Relationship Specialty Start Date End Date Jessy Andersen FNP [address] [facility] [place] [address] PCP - General Family Medicine 10/01/22
--- OUTSIDE RECORDS SUMMARY | 2024-11-08 13:13 | XMS_ITS | Encounter Summary ---
Author Organization [facility] Address [address] [place] [address] Phone Care Team Providers Care Airline Security Representative Name Role Phone Jessy Andersen ACROBATIC RIGGER Primary Care Provider Encounter Details Date Type Department Care Team (Late st Contact Info) Description 04/09/2023 Ancillary Orders Virtual Department [address] [place] [address] Jessy Andersen NP [address] [place] [address] Rheumatoid arthritis with positive rheumatoid factor, involving [...] st Contact Info) Description 09/28/2024 Procedure Pass [facility] - [address] [place] [address] 11/14/2024 11:30 AM EDT Office Visit [facility] [address] [place] [address] Brooke Pressley MD [address] [address] Kim Braun, PT 380 [place] [address] [email or web address] 11/21/2024 11:30 AM EDT Office Visit [facility] [address] [place] [address] Brooke Pressley MD [address] [address] Kim Braun, PT 380 [place] [address] [email or web address] 11/28/2024 11:30 AM EDT Office Visit [address] [address] Brooke Pressley MD 299 [facility] [address] [place] [address] Kim Braun, PT 380 [facility] [place] [email or web address] 05/10/2025 9:15 AM EDT Appointment [address] [place] [address] Jessy Andersen, ACROBATIC RIGGER 73 [place] [id number] documented as of this encounter Results * [...] compartment. Procedure Note Renard Shi MD - 02/10/2024 XR KNEE STANDING (BILATERAL, SINGLE VIEW ONLY) [...] site- Primary Chronic pain of both knees Other abnormalities of gait and mobility- Primary documented in this encounter Additional Health Concerns Assessment Noted Time PHQ-2 Depression Total Score: 0 09/02/19 23 10:16 AM EDT documented as of this encounter Care Teams Airline Security Representative Relationship Specialty Start Date End Date Jessy Andersen NP PCP - General Nurse Practitioner 01/29/23 documented as of this encounter Additional Source Comments The information contained in this document represents components of the legal health record. It is not the complete legal health record.[facility]
--- OUTSIDE RECORDS SUMMARY | 2024-11-08 13:13 | XMS_ITS | Encounter Summary ---
Author Organization [facility] Address [address] [place] [address] Phone Care Team Providers Care Gas Systems Worker Name Role Phone Jessy Andersen RECREATIONAL THERAPY TECHNICIAN Primary Care Provider Encounter Details Date Type Department Care Team (Late st Contact Info) Description 03/20/2023 Transcribe Orders Virtual Department 30 [place] [address] Jessy Andersen NP [address] [place] [address] Rheumatoid arthritis with positive rheumatoid factor, involving [...] st Contact Info) Description 09/28/2024 Procedure Pass [facility] - [address] [place] [address] 11/14/2024 11:30 AM EDT Office Visit [facility] [address] [place] [address] Brooke Pressley MD [address] [address] Kim Braun, PT 380 [place] [address] 11/21/2024 11:30 AM EDT Office Visit [facility] [address] [place] [address] Brooke Pressley MD [address] [address] Kim Braun, PT 380 [place] [address] 11/28/2024 11:30 AM EDT Office Visit [address] [address] Brooke Pressley MD 299 [facility] [address] [place] [address] Kim Braun, PT [address] [place] [address] 05/10/2025 9:15 AM EDT Appointment [address] [place] [address] Jessy Andersen NP 73 [place] [address] documented as of this encounter Visit Diagnoses Diagnosis Rheumatoid arthritis with positive rheumatoid factor, involving unspecified site- Primary Chronic pain of both knees Other abnormalities of gait and mobility- Primary documented in this encounter Additional Health Concerns Assessment Noted Time PHQ-2 Depression Total Score: 0 09/02/19 23 10:16 AM EDT documented as of this encounter Care Teams Gas Systems Worker Relationship Specialty Start Date End Date Jessy Andersen NP PCP - General Nurse Practitioner 01/29/23 documented as of this encounter Additional Source Comments The information contained in this document represents components of the legal health record. It is not the complete legal health record.[facility]
--- OUTSIDE RECORDS SUMMARY | 2024-11-08 13:13 | XMS_ITS | Encounter Summary ---
Author Organization [employer] Address [address] [facility] 7t [place] [address] Care Team Providers Care Hotel Superintendent Name Role Phone [facility] Primary Care Provider [phone] Encounter Details Date Type Department Care Team (Late st Contact Info) Description 08/12/2023 Orders Only [facility] [address] [place] [address] [place], [place] [facility] 70 [place] [address] Rheumatoid arthritis with positive rheumatoid factor, involving unspecified site ([facility]) Social History Tobacco Use Types Packs/Day Years [...] 12/22/2024 11:40 AM EDT Office Visit [facility] [address] [place] [address] [facility] 70 [place] [address] documented as of this encounter Procedures Procedure Name Priority Date/Time Associated Diagnosis Comments AMB REFERRAL TO RHEUMATOLOGY Routine 05/29/2023 Rheumatoid arthritis with positive rheumatoid factor, involving unspecified site ([facility]) documented in this encounter Results * Referral to Rheumatology (05/29/2023) [facility] OUTPATIENT REFERRAL ORDER GABBI Final Result documented in this encounter Visit Diagnoses Diagnosis Rheumatoid arthritis with positive rheumatoid factor, involving unspecified site ([facility]) documented in this encounter Care Teams Hotel Superintendent Relationship Specialty Start Date End Date [facility] 70 [place] [address] PCP - General Family Medicine 10/01/22 documented as of this encounter
--- OUTSIDE RECORDS SUMMARY | 2024-11-08 13:13 | XMS_ITS | Encounter Summary ---
Author Organization [facility] Address [address] [place] [address] Phone Care Team Providers Care Structural Metal Fabricator Apprentice Name Role Phone JaleesaJessy acosta Tyra APPLE Primary Care Provider Encounter Details Date Type Department Care Team (Late st Contact Info) Description 01/29/2023 Procedure Pass [facility] - [address] [place] [address] Social History Tobacco Use Types Packs/Day Years [...] Description 09/28/2024 Procedure Pass [facility] - [address] [place] [address] 11/14/2024 11:30 AM EDT Office Visit [facility] [address] [place] [address] Brooke Pressley MD [address] [address] Kim Braun, PT 380 [place] [address] [email or web address] 11/21/2024 11:30 AM EDT Office Visit [facility] [address] [place] [address] Brooke Pressley MD [address] [address] Kim Braun, PT 380 [place] [address] 11/28/2024 11:30 AM EDT Office Visit [facility] [address] [place] [address] Brooke Pressley MD [address] [address] Kim Braun, PT [address] [place] [address] 05/10/2025 9:15 AM EDT Appointment [facility] - [address] [place] [address] Jessy Andersen, SCOURING MACHINE TENDER 73 [place] [address] documented as of this encounter Visit Diagnoses Not on filedocumented in this encounter Additional Health Concerns Assessment Noted Time PHQ-2 Depression Total Score: 0 09/02/19 10:16 AM EDT documented as of this encounter Care Teams Structural Metal Fabricator Apprentice Relationship Specialty Start Date End Date Jessy Andersen NP PCP - General Nurse Practitioner 01/29/23 documented as of this encounter Additional Source Comments The information contained in this document represents components of the legal health record. It is not the complete legal health record.[facility]
--- OUTSIDE RECORDS SUMMARY | 2024-11-08 13:13 | XMS_ITS | Encounter Summary ---
Author Organization [facility] Address [address] [place] [address] Phone Care Team Providers Care Retail Support Manager Name Role Phone Jacquelyn Chandler MD Primary Care Provider Jessy Andersen NP Primary Care Provider Encounter Details Date Type Department Care Team (Late st Contact Info) Description 01/10/2020 Procedure Pass [address] [address] Social History Tobacco Use Types Packs/Day Years [...] 09/28/2024 Procedure Pass [facility] - [address] [place] [address] 11/14/2024 11:30 AM EDT Office Visit [facility] [address] [place] [address] Brooke Pressley MD [address] [address] Kim Braun, PT 380 [place] [address] 11/21/2024 11:30 AM EDT Office Visit [facility] [address] [place] [address] Brooke Pressley MD [address] [address] Kim Braun, PT 380 [place] [address] 11/28/2024 11:30 AM EDT Office Visit [address] [address] Brooke Pressley MD [address] [address] Kim Braun, PT 380 [place] [address] 05/10/2025 9:15 AM EDT Appointment [facility] - [address] [place] [address] Jessy Andersen, AMBIKA 73 [place] [address] documented as of this encounter Visit Diagnoses Not on filedocumented in this encounter Additional Health Concerns Infection Onset Date Last Indicated Resolved Time CoV-Risk 12/21/2021 12/21/2021 01/01/2022 1:22 AM EDT documented as of this encounter Care Teams Retail Support Manager Relationship Specialty Start Date End Date Jacquelyn Chandler MD [address] [place] [address] [email or web address] PCP - General Internal Medicine 12/01/17 01/28/23 Jessy Andersen NP [address] [place] [address] PCP - General Nurse Practitioner 01/29/23 documented as of this encounter Additional Source Comments The information contained in this document represents components of the legal health record. It is not the complete legal health record.[facility]
--- OUTSIDE RECORDS SUMMARY | 2024-11-08 13:13 | XMS_ITS | Encounter Summary ---
Author Organization [facility] Address [address] [place] [address] Phone Care Team Providers Care Rolling Machine Tender Name Role Phone Jacquelyn Chandler MD Primary Care Provider Jessy Andersen NP Primary Care Provider Encounter Details Date Type Department Care Team (Late st Contact Info) Description 12/24/2019 Procedure Pass [address] [place] [address] Social History Tobacco Use Types Packs/Day Years [...] st Contact Info) Description 09/28/2024 Procedure Pass [address] [place] [address] 11/14/2024 11:30 AM EDT Office Visit [facility] 380 [place] [address] Brooke Pressley MD [address] [address] Kim Braun, PT 380 [place] [address] [email or web address] 11/21/2024 11:30 AM EDT Office Visit [facility] 380 [place] [address] Brooke Pressley MD [address] [address] Kim Braun, PT 380 [place] [address] [email or web address] 11/28/2024 11:30 AM EDT Office Visit [address] [address] Brooke Pressley MD [address] [address] Kim Braun, PT 380 [place] [address] [email or web address] 05/10/2025 9:15 AM EDT Appointment [facility] - [address] [place] [address] Jessy Andersen, AMBIKA 73 [place] [address] documented as of this encounter Visit Diagnoses Not on filedocumented in this encounter Additional Health Concerns Infection Onset Date Last Indicated Resolved Time CoV-Risk 12/21/2021 12/21/2021 01/01/2022 1:22 AM EDT documented as of this encounter Care Teams Rolling Machine Tender Relationship Specialty Start Date End Date Jacquelyn Chandler MD [address] [place] [address] [email or web address] PCP - General Internal Medicine 12/01/17 01/28/23 Jessy Andersen NP [address] [place] [address] PCP - General Nurse Practitioner 01/29/23 documented as of this encounter Additional Source Comments The information contained in this document represents components of the legal health record. It is not the complete legal health record.[facility]
--- OUTSIDE RECORDS SUMMARY | 2024-11-08 13:13 | XMS_ITS | Encounter Summary ---
Author Organization [facility] Address [address] [place] [address] Phone Care Team Providers Care Fluorescent Lamp Replacer Name Role Phone Jacquelyn Chandler MD Primary Care Provider + [phone] Jessy Andersen NP Primary Care Provider Reason for Referral * MRI/CAT Scan - Closed Specialty Diagnoses / Procedures Referred By Gabriele canales Referred To Contact Radiology Diagnoses Memory loss Numbness Procedures MRI Brain Taqueria Aj MD Phone: tel: fax: [email or web address] Referral ID Status Reason Start Date Expiration Date Visits Re quested Visits Authorized [id number] Closed 01/09/2020 04/08/2020 1 1 Encounter Details Date Type Department Care Team (Latest Contact Info) Description 01/10/2020 Transcribe Orders Virtual Department [address] [place] [address] Taqueria Aj MD [address] [place] [address], [address] [place], [place] [phone] [email or web address] Memory loss (Primary Dx); Numbness; TIA [...] st Contact Info) Description 09/28/2024 Procedure Pass [facility] - [address] [place] [address] 11/14/2024 11:30 AM EDT Office Visit [facility] [address] [place] [address] Brooke Pressley MD [address] [address] Kim Braun, PT 380 [place] [address] [email or web address] 11/21/2024 11:30 AM EDT Office Visit [facility] [address] [place] [address] Brooke Pressley MD [address] [address] Kim Braun, PT 380 [place] [address] 11/28/2024 11:30 AM EDT Office Visit [address] [address] Brooke Pressley MD [address] [address] Kim Braun, PT 380 [place] [address] [email or web address] 05/10/2025 9:15 AM EDT Appointment [place] [place] [address] Jessy Andersen, AMBIKA [address] [place] [address] documented as of this encounter Results * [...] Modality Heart, Thoracic Vasculature, Neck Ultrasound 01/20/2020 4:08 PM EST Impressions 01/20/2020 4:11 PM EST [...] (50-69%). 2. Bilateral antegrade vertebral artery flow. Taqueria Aj MD CV US NEUROVASCULAR Final Re sult documented in this encounter Visit Diagnoses Diagnosis Memory loss- Primary Numbness Disturbance of skin sensation TIA (transient ischemic attack) Unspecified transient cerebral ischemia TIA (transient ischemic attack) Unspecified transient cerebral ischemia Memory loss Numbness Disturbance of skin sensation Other abnormalities of gait and mobility- Primary documented in this encounter Additional Health Concerns Infection Onset Date Last Indicated Resolved Time CoV-Risk 12/21/2021 12/21/2021 01/01/2022 1:22 AM EDT documented as of this encounter Care Teams Fluorescent Lamp Replacer Relationship Specialty Start Date End Date Jacquelyn Chandler MD [address] [place] [address] PCP - General Internal Medicine 12/01/17 01/28/23 Jessy Andersen NP [address] [place] [address] PCP - General Nurse Practitioner 01/29/23 documented as of this encounter Additional Source Comments The information contained in this document represents components of the legal health record. It is not the complete legal health record.[facility]
--- OUTSIDE RECORDS SUMMARY | 2024-11-08 13:13 | XMS_ITS | Encounter Summary ---
Author Organization [facility] Address [address] [place], [place] [phone] Phone Care Team Providers Care Turf Farm Worker Name Role Phone Jacquelyn Chandler MD Primary Care Provider Jessy Anedrsen NP Primary Care Provider Encounter Details Date Type Department Care Team (Late st Contact Info) Description 08/14/2021 Procedure Pass [address] [place] [address] Social History Tobacco Use Types Packs/Day Years [...] Contact Info) Description 09/28/2024 Procedure Pass [address] [place] [address] 11/14/2024 11:30 AM EDT Office Visit [address] [address] Brooke Pressley MD [address] [address] Kim Braun, PT 380 [place] [address] [email or web address] 11/21/2024 11:30 AM EDT Office Visit [facility] [address] [place] [address] Brooke Pressley MD [address] [address] Kim Braun, PT 380 [place] [address] [email or web address] 11/28/2024 11:30 AM EDT Office Visit [address] [address] Brooke Pressley MD [address] [address] Kim Braun, PT 380 [place] [address] [email or web address] 05/10/2025 9:15 AM EDT Appointment [facility] - [address] [place] [address] [facility] AMBIKA [address] [place] [address] documented as of this encounter Visit Diagnoses Not on filedocumented in this encounter Additional Health Concerns Infection Onset Date Last Indicated Resolved Time CoV-Risk 12/21/2021 12/21/2021 01/01/2022 1:22 AM EDT Assessment Noted Time PHQ-2 Depression Total Score: 0 07/30/19 10:09 AM EDT documented as of this encounter Care Teams Turf Farm Worker Relationship Specialty Start Date End Date Jacquelyn Chandler MD [address] [place] [address] [email or web address] PCP - General Internal Medicine 12/01/17 01/28/23 Jessy Andersen NP [address] [place] [address] PCP - General Nurse Practitioner 01/29/23 documented as of this encounter Additional Source Comments The information contained in this document represents components of the legal health record. It is not the complete legal health record.[facility]
--- OUTSIDE RECORDS SUMMARY | 2024-11-08 13:13 | XMS_ITS | Encounter Summary ---
Author Organization [facility] Address [address] [place] [address] Phone Care Team Providers Care Mold Capper Helper Name Role Phone Jaleesakarla Jessy Mary NP Primary Care Provider Encounter Details Date Type Department Care Team (Late st Contact Info) Description 06/22/2024 Procedure Pass [facility], [address] [address] Social History Tobacco Use Types Packs/Day Years [...] Procedure Pass [facility] - [address] [place] [address] 11/14/2024 11:30 AM EDT Office Visit [facility] [address] [place] [address] Brooke Pressley MD [address] [address] Kim Braun, PT 380 [place] [address] [email or web address] 11/21/2024 11:30 AM EDT Office Visit [facility] [address] [place] [address] Brooke Pressley MD [address] [address] Kim Braun, PT 380 [place] [address] 11/28/2024 11:30 AM EDT Office Visit [facility] [address] [place] [address] Brooke Pressley MD [address] [address] Kim Braun, PT 380 [place] [address] [email or web address] 05/10/2025 9:15 AM EDT Appointment [address] [place] [address] Jessy Andersen MULTI TOWNSHIP ASSESSOR 73 [place] [address] documented as of this encounter Visit Diagnoses Not on filedocumented in this encounter Additional Health Concerns Assessment Noted Time PHQ-2 Depression Total Score: 0 09/02/19 10:16 AM EDT documented as of this encounter Care Teams Mold Capper Helper Relationship Specialty Start Date End Date Jessy Andersen NP PCP - General Nurse Practitioner 01/29/23 documented as of this encounter Additional Source Comments The information contained in this document represents components of the legal health record. It is not the complete legal health record.[facility]
--- OUTSIDE RECORDS SUMMARY | 2024-11-08 13:13 | XMS_ITS | Encounter Summary ---
Author Organization [facility] Address [address] [place] [address] [place] [address] Phone Care Team Providers Care Sintering Plant Supervisor Name Role Phone Jessy Andersen ROLLER PRINTING SUPERVISOR Primary Care Provider Encounter Details Date Type Department Care Team (Late st Contact Info) Description 03/11/2024 Ancillary Orders [facility]-Ray - [address] [place] [address] Jessy Andersen NP [address] [place] [address] Acute cough (Primary Dx) Social History Tobacco [...] st Contact Info) Description 09/28/2024 Procedure Pass [facility] - [address] [place] [address] 11/14/2024 11:30 AM EDT Office Visit [facility] [address] [place] [address] Brooke Pressley MD [address] [address] Kim Braun, PT 380 [place] [address] 11/21/2024 11:30 AM EDT Office Visit [facility] [address] [place] [address] Brooke Pressley MD [address] [address] Kim Braun, PT 380 [place] [address] 11/28/2024 11:30 AM EDT Office Visit [address] [address] Brooke Pressley MD 299 [facility] [address] [place] [address] Kim Braun, PT [address] [place] [address] 05/10/2025 9:15 AM EDT Appointment [facility] - [address] [place] [address] Jessy Andersen, ROLLER PRINTING SUPERVISOR 73 [facility] [place] [place] [address] documented as of this encounter Results * [...] clinician's provided indication for this examination in [facility]: Cough COMPARISON: 07/03/2022, 01/17/2022 FINDINGS: Devices/Tubes/Lines: None. Lungs: Few linear opacities in the left base. Pleura: No pleural effusion or pneumothorax. Heart/Mediastinum: Stable size and contour of the cardiac silhouette. Bones/Soft Tissues: Multilevel spondylosis and bilateral acromioclavicular arthropathy. Procedure Note Stella Velasquez MD - 03/11/2024 XR CHEST PA AND LATERAL 2 VIEWS Referring clinician's provided indication for this examination in [facility]:Cough COMPARISON: 07/03/2022, 01/17/2022 FINDINGS: Devices/Tubes/Lines: None. Lungs: [...] Diagnoses Diagnosis Acute cough- Primary Acute cough Other abnormalities of gait and mobility- Primary documented in this encounter Additional Health Concerns Assessment Noted Time PHQ-2 Depression Total Score: 0 09/02/19 23 10:16 AM EDT documented as of this encounter Care Teams Sintering Plant Supervisor Relationship Specialty Start Date End Date Jessy Andersen NP PCP - General Nurse Practitioner 01/29/23 documented as of this encounter Additional Source Comments The information contained in this document represents components of the legal health record. It is not the complete legal health record.[facility]
--- OUTSIDE RECORDS SUMMARY | 2024-11-08 13:13 | XMS_ITS | Encounter Summary ---
Author Organization [facility] Address [address] [place] [address] Phone Care Team Providers Care Interactive Graphic Designer Name Role Phone Jacquelyn Chandler MD Primary Care Provider Jessy Andersen NP Primary Care Provider Encounter Details Date Type Department Care Team (Late st Contact Info) Description 09/28/2019 Procedure Pass [facility] Scan - [address] [address] Social History Tobacco Use Types Packs/Day Years [...] Procedure Pass [facility] - [address] [place] [address] 11/14/2024 11:30 AM EDT Office Visit [facility] [address] [place] [address] Brooke Pressley MD [address] [address] Kim Braun, PT [address] [place] [address] [email or web address] 11/21/2024 11:30 AM EDT Office Visit [facility] [address] [place] [address] Brooke Pressley MD [address] [address] Kim Braun, PT [address] [place] [address] [email or web address] 11/28/2024 11:30 AM EDT Office Visit [address] [address] Brooke Pressley MD [address] [address] Kim Braun, PT [address] [place] [address] [email or web address] 05/10/2025 9:15 AM EDT Appointment [facility] - [address] [place] [address] Jessy Andersen, AMBIKA [address] [facility] [place] [address] documented as of this encounter Visit Diagnoses Not on filedocumented in this encounter Additional Health Concerns Infection Onset Date Last Indicated Resolved Time CoV-Risk 12/21/2021 12/21/2021 01/01/2022 1:22 AM EDT documented as of this encounter Care Teams Interactive Graphic Designer Relationship Specialty Start Date End Date Jacquelyn Chandler MD [address] [place] [address] [email or web address] PCP - General Internal Medicine 12/01/17 01/28/23 Jessy Andersen NP [address] [place] [address] PCP - General Nurse Practitioner 01/29/23 documented as of this encounter Additional Source Comments The information contained in this document represents components of the legal health record. It is not the complete legal health record.[facility]
--- OUTSIDE RECORDS SUMMARY | 2024-11-08 13:13 | XMS_ITS | Encounter Summary ---
Author Organization [facility] Address [address] [place] [address] Phone Care Team Providers Care Flower Grower Name Role Phone Jacquelyn Chandler MD Primary Care Provider Jessy Andersen NP Primary Care Provider Encounter Details Date Type Department Care Team (Late st Contact Info) Description 09/23/2021 Procedure Pass [address] [place] [address] Social History Tobacco Use Types Packs/Day Years [...] st Contact Info) Description 09/28/2024 Procedure Pass [address] [place] [address] 11/14/2024 11:30 AM EDT Office Visit [address] [address] Brooke Pressley MD [address] [address] Kim Braun, PT [address] [place] [address] 11/21/2024 11:30 AM EDT Office Visit [facility] [address] [place] [address] Brooke Pressley MD [address] [address] Kim Braun, PT [address] [place] [address] 11/28/2024 11:30 AM EDT Office Visit [address] [address] Brooke Pressley MD [address] [address] Kim Braun, PT [address] [place] [address] 05/10/2025 9:15 AM EDT Appointment [facility] - [address] [place] [address] [facility] Hospital[facility]y, AMBIKA [address] [place] [address] documented as of this encounter Visit Diagnoses Not on filedocumented in this encounter Additional Health Concerns Infection Onset Date Last Indicated Resolved Time CoV-Risk 12/21/2021 12/21/2021 01/01/2022 1:22 AM EDT Assessment Noted Time PHQ-2 Depression Total Score: 0 07/30/19 10:09 AM EDT documented as of this encounter Care Teams Flower Grower Relationship Specialty Start Date End Date Jacquelyn Chandler MD [address] [place] [address] [email or web address] PCP - General Internal Medicine 12/01/17 01/28/23 Jessy Andersen NP [address] [place] [address] PCP - General Nurse Practitioner 01/29/23 documented as of this encounter Additional Source Comments The information contained in this document represents components of the legal health record. It is not the complete legal health record.[facility]
--- OUTSIDE RECORDS SUMMARY | 2024-11-08 13:13 | XMS_ITS | Encounter Summary ---
Author Organization [facility] Address [address] [facility] [address] [place] [address] Phone Care Team Providers Care Security Operations Center Operator Name Role Phone Dinh Keane DOMESTIC HOUSEKEEPER Primary Care Provider Encounter Details Date Type Department Care Team (Late st Contact Info) Description 12/23/2023 Transcribe Orders Virtual Department 30 [place] [address] Dinh Keane NP [address] [place] [address] Screening for osteoporosis (Primary Dx); Chronic bilateral [...] st Contact Info) Description 09/28/2024 Procedure Pass [facility] - [address] [place] [address] 11/14/2024 11:30 AM EDT Office Visit [facility] [address] [place] [address] Brooke Pressley MD [address] [address] Kim Braun, PT [address] [place] [address] 11/21/2024 11:30 AM EDT Office Visit [facility] [address] [place] [address] Brooke Pressley MD [address] [address] Kim Braun, PT [address] [place] [address] [email or web address] 11/28/2024 11:30 AM EDT Office Visit [address] [address] Brooke Pressley MD 299 [facility] [address] [place] [address] Kim Braun, PT 380 [facility] [place] [address] 05/10/2025 9:15 AM EDT Appointment [address] [place] [address] Dinh Keane, DOMESTIC HOUSEKEEPER [address] [facility] [address] documented as of this encounter Results * BD DXA AXIAL (SPINE) WITH HIP (10/04/2024 10:41 AM EDT) Anatomical Region Laterality Modality Bone Density Bone Density 10/04/2024 10:3 0 AM EDT Impressions 10/05/2024 12:30 PM EDT Interpretation: Normal bone mineral density. Narrative 10/05/2024 12:30 PM EDT Referred By: DINH KEANE Indications: Osteoporosis Scanner: [employer] A with serial# of [id number] located at [facility] Bone Density Scan (DXA) 10/04/24 Details [...] -2.5), or Osteoporosis (T-score <= -2.5). At [facility], T-scores are compared to peak bone density [...] Referred By: DINH KEANE Indications: Osteoporosis Scanner: [employer] A with serial# of [id number] located at [facility] Bone Density Scan (DXA) 10/04/24 Details of [...] -2.5), or Osteoporosis (T-score <= -2.5). At [facility], T-scores are compared to peak bone density [...] results. IMPRESSION: Interpretation: Normal bone mineral density. us Dinh Keane DOMESTIC HOUSEKEEPER IMG BD BONE DENSITY DE XA Final [...] mL. Postvoid volume: 17 mL. Procedure Note Johnson Osman MD - 01/14/2024 Procedure: US KIDNEYS AND [...] there is normal echogenicity. The right kidney tnxiqgyw08.6 cm in length. There is no evidence [...] void residual volumemeasuring 17 mL's. Dinh Keane DOMESTIC HOUSEKEEPER IMG US RENAL Final Result documented in this encounter Visit Diagnoses Diagnosis Screening for osteoporosis- Primary Special screening for osteoporosis Chronic bilateral low back pain without sciatica Straining to void Chronic bilateral low back pain without sciatica Straining to void Screening for osteoporosis Special screening for osteoporosis Other abnormalities of gait and mobility- Primary documented in this encounter Additional Health Concerns Assessment Noted Time PHQ-2 Depression Total Score: 0 09/02/19 10:16 AM EDT documented as of this encounter Care Teams Security Operations Center Operator Relationship Specialty Start Date End Date Dinh Keane NP PCP - General Nurse Practitioner 01/29/23 documented as of this encounter Additional Source Comments The information contained in this document represents components of the legal health record. It is not the complete legal health record.[facility]
--- OUTSIDE RECORDS SUMMARY | 2024-11-08 13:13 | XMS_ITS | Encounter Summary ---
Author Organization [facility] Address [address] [place] [address] Phone Care Team Providers Care Flat Surfacer Jewel Name Role Phone Jacquelyn Chandler MD Primary Care Provider Jessy Andersen NP Primary Care Provider Encounter Details Date Type Department Care Team (Latest Contact Info) Description 10/17/2019 Transcribe Orders [address] [place] [address] Seth Jeter MD [address] [place] [address] [email or web address] Abdominal pain, RLQ (Primary Dx) Social History [...] Procedure Pass [facility] - [address] [place] [address] 11/14/2024 11:30 AM EDT Office Visit [facility] [address] [place] [address] Brooke Pressley MD [address] [address] Kim Braun, PT 380 [place] [address] [email or web address] 11/21/2024 11:30 AM EDT Office Visit [facility] [address] [place] [address] Brooke Pressley MD [address] [address] Kim Braun, PT 380 [place] [address] [email or web address] 11/28/2024 11:30 AM EDT Office Visit [facility] [address] [place] [address] Brooke Pressley MD [address] [address] Kim Braun, PT [address] [place] [address] [email or web address] 05/10/2025 9:15 AM EDT Appointment [place] [address] [place] [address] Jessy Andersen NP [address] [place] [address] documented as of this encounter Results * Creatinine/eGFR (10/17/2019 3:24 PM EDT) CREATININE 1.00 0.5 - 1.5 mg/dL [facility] EGFR 60 >59 mL/min/1.7 3m2 [facility] Comment:Estimated glomerular filtration rate calculated using the CKD-EPI equation. Blood 10/17/2019 3:24 PM EDT 10/17/2019 3:26 PM EDT Seth Jeter MD LAB BLOOD ORDERABLES Final R esult Performing Organization Address [facility] Phone Number [address] [address] * BUN (10/17/2019 3:24 PM EDT) BUN 18 6 - 19 mg/dL [facility] Blood 10/17/2019 3:24 PM EDT 10/17/2019 3:26 PM EDT Seth Jeter MD LAB BLOOD ORDERABLES Final R esult Performing Organization Address [facility] [employer] Phone Number [address] [address] documented in this encounter Visit Diagnoses Diagnosis Abdominal pain, RLQ- Primary Other abnormalities of gait and mobility- Primary documented in this encounter Additional Health Concerns Infection Onset Date Last Indicated Resolved Time CoV-Risk 12/21/2021 12/21/2021 01/01/2022 1:22 AM EDT documented as of this encounter Care Teams Flat Surfacer Jewel Relationship Specialty Start Date End Date Jacquelyn Chandler MD [address] [place] [address] PCP - General Internal Medicine 12/01/17 01/28/23 Jessy Andersen NP [address] [place] [address] PCP - General Nurse Practitioner 01/29/23 documented as of this encounter Additional Source Comments The information contained in this document represents components of the legal health record. It is not the complete legal health record.[facility]
--- OUTSIDE RECORDS SUMMARY | 2024-11-08 13:13 | XMS_ITS | Encounter Summary ---
Author Organization [facility] Address [address] [place] [address] Phone Care Team Providers Care Ssrs Report Developer Name Role Phone Jacquelyn Chandler MD Primary Care Provider Jessy Andersen NP Primary Care Provider Reason for Referral * MRI/CAT Scan - Closed Specialty Diagnoses / Procedures Referred By Gabriele canales Referred To Contact Radiology Diagnoses Lower abdominal pain Procedures CT Abdomen/Pelvis Seth Jeter MD Phone: tel: fax: [email or web address] Referral ID Status Reason Start Date Expiration Date Visits Re quested Visits Authorized [id number] Closed 09/26/2021 09/26/2022 1 1 Encounter Details Date Type Department Care Team (Latest Contact Info) Description 09/26/2021 Transcribe Orders Virtual Department 30 [place] [address] Seth Jeter MD [address] [place] [address] [email or web address] Lower abdominal pain (Primary Dx) Social History [...] Contact Info) Description 09/28/2024 Procedure Pass [facility] - [address] [place] [address] 11/14/2024 11:30 AM EDT Office Visit [facility] [address] [place] [address] Brooke Pressley MD [address] [address] Kim Braun, PT [address] [place] [address] 11/21/2024 11:30 AM EDT Office Visit [address] [address] Brooke Pressley MD [address] [address] Kim Braun, PT [address] [place] [address] 11/28/2024 11:30 AM EDT Office Visit [address] [address] Brooke Pressley MD [address] [address] Kim Braun, PT [address] [place] [address] 05/10/2025 9:15 AM EDT Appointment [place] [facility] - [address] [place] [address] Jessy Andersen, AMBIKA [address] [place] [address] documented as of this encounter Results * [...] abdominal pain Abdominal pain, other specified site Other abnormalities of gait and mobility- Primary documented in this encounter Additional Health Concerns Infection Onset Date Last Indicated Resolved Time CoV-Risk 12/21/2021 12/21/2021 01/01/2022 1:22 AM EDT Assessment Noted Time PHQ-2 Depression Total Score: 0 07/30/19 10:09 AM EDT documented as of this encounter Care Teams Ssrs Report Developer Relationship Specialty Start Date End Date Jacquelyn Chandler MD [address] [place] [address] [email or web address] PCP - General Internal Medicine 12/01/17 01/28/23 Jessy Andersen NP [address] [place] [address] PCP - General Nurse Practitioner 01/29/23 documented as of this encounter Additional Source Comments The information contained in this document represents components of the legal health record. It is not the complete legal health record.[facility]
--- OUTSIDE RECORDS SUMMARY | 2024-11-08 13:13 | XMS_ITS | Encounter Summary ---
Author Organization [facility] Address [address] [place] [address] Phone Care Team Providers Care Rent Collector Name Role Phone Jacquelyn Chandler MD Primary Care Provider Jessy Andersen NP Primary Care Provider Encounter Details Date Type Department Care Team (Late Contact Info) Description 11/25/2019 Procedure Pass [place] Admitting Dept - Virtual Department 30 [place] [address] Social History Tobacco Use Types Packs/Day Years [...] (Late Contact Info) Description 09/28/2024 Procedure Pass [address] [place] [address] 11/14/2024 11:30 AM EDT Office Visit [address] [address] Brooke Pressley MD [address] [address] Kim Braun, PT [address] [place] [address] 11/21/2024 11:30 AM EDT Office Visit [facility] [address] [place] [address] Brooke Pressley MD [address] [address] Kim Braun, PT [address] [place] [address] 11/28/2024 11:30 AM EDT Office Visit [address] [address] Brooke Pressley MD [address] [address] Kim Braun, PT [address] [place] [address] 05/10/2025 9:15 AM EDT Appointment [facility] - [address] [place] [address] Jessy Andersen, STRINGS TEACHER [address] [place] [address] documented as of this encounter Visit Diagnoses Not on filedocumented in this encounter Additional Health Concerns Infection Onset Date Last Indicated Resolved Time CoV-Risk 12/21/2021 12/21/2021 01/01/2022 1:22 AM EDT documented as of this encounter Care Teams Rent Collector Relationship Specialty Start Date End Date Jacquelyn Chandler MD [address] [place] [address] [email or web address] PCP - General Internal Medicine 12/01/17 01/28/23 Jessy Andersen NP [address] [place] [address] PCP - General Nurse Practitioner 01/29/23 documented as of this encounter Additional Source Comments The information contained in this document represents components of the legal health record. It is not the complete legal health record.[facility]
--- OUTSIDE RECORDS SUMMARY | 2024-11-08 13:13 | XMS_ITS | Encounter Summary ---
Author Organization [facility] Address [address] [place] [address] Phone Care Team Providers Care Auto Service Writer Name Role Phone Jessy Andersen DIAMOND GRADER Primary Care Provider Reason for Referral * MRI/CAT Scan - Closed Specialty Diagnoses / Procedures Referred By Gabriele canales Referred To Contact Radiology Diagnoses Memory problem Balance problem Tremor Procedures MRI Brain Jessy Andersen NP [address] [place] [address] Phone: tel: fax: Referral ID Status Reason Start Date Expiration Date Visits Re quested Visits Authorized [id number] Closed 06/22/2024 06/22/2025 1 1 Encounter Details Date Type Department Care Team (Late st Contact Info) Description 06/22/2024 Transcribe Orders Virtual Department 30 [place] [address] Jessy Andersen NP [address] [place] [address] Memory problem (Primary Dx); Balance problem; Tremor [...] st Contact Info) Description 09/28/2024 Procedure Pass [facility] - [address] [place] [address] 11/14/2024 11:30 AM EDT Office Visit [facility] [address] [place] [address] Brooke Pressley MD [address] [place] [address] [address] [place] [address] Kim Braun, PT [address] [place] [address] 11/21/2024 11:30 AM EDT Office Visit [facility] [address] [place] [address] Brooke Pressley MD [address] [address] Kim Braun, PT [address] [place] [address] 11/28/2024 11:30 AM EDT Office Visit [facility] [address] [place] [address] Brooke Pressley MD [address] [address] Kim Braun, PT [address] [place] [address] 05/10/2025 9:15 AM EDT Appointment [facility] - [address] [place] [address] Jessy Andersen, DIAMOND GRADER [address] [place] [address] documented as of this encounter Results * [...] this examination in Epic: Outside Radiology Order; tremor TECHNIQUE: MRI BRAIN [...] clinician's provided indication for this examination in [facility]:Outside Radiology Order; tremor TECHNIQUE: MRI BRAIN WITHOUT [...] regional pattern of volume loss. Jessy Andersen NP IMG MR HEAD/NECK Final Result documented in this encounter Visit Diagnoses Diagnosis Memory problem- Primary Memory loss Balance problem Abnormality of gait Tremor Abnormal involuntary movements Memory problem Memory loss Balance problem Abnormality of gait Tremor Abnormal involuntary movements Other abnormalities of gait and mobility- Primary documented in this encounter Additional Health Concerns Assessment Noted Time PHQ-2 Depression Total Score: 0 09/02/19 23 10:16 AM EDT documented as of this encounter Care Teams Auto Service Writer Relationship Specialty Start Date End Date Jessy Andersen NP PCP - General Nurse Practitioner 01/29/23 documented as of this encounter Additional Source Comments The information contained in this document represents components of the legal health record. It is not the complete legal health record.[facility]
--- OUTSIDE RECORDS SUMMARY | 2024-11-08 13:13 | XMS_ITS | Encounter Summary ---
Author Organization [employer] Address [address] [place] [address] [address] [place] [address] Care Team Providers Care Lathe Machinist Name Role Phone [facility] Primary Care Provider [phone] Encounter Details Date Type Department Care Team (Late st Contact Info) Description 02/06/2023 Orders Only [facility] Information Management [address] [place] [address] [facility] [place] [facility] [address] [place] [address] Social History Tobacco Use Types Packs/Day Years [...] 12/22/2024 11:40 AM EDT Office Visit [facility] [address] [place] [address] [place], [place] [facility] [address] [place] [address] documented as of this encounter Procedures Procedure Name Priority Date/Time Associated Diagnosis Comments MAMMOGRAPHY Routine 02/03/2023 documented in this encounter Results * Mammography (02/03/2023) Anatomical Region Laterality Modality Other Jessy Andersen [facility] Result - Final documented in this encounter Visit Diagnoses Not on filedocumented in this encounter Care Teams Lathe Machinist Relationship Specialty Start Date End Date Jessy Andersen FNP [address] [place] [address] PCP - General Family Medicine 10/01/22 documented as of this encounter
--- OUTSIDE RECORDS SUMMARY | 2024-11-08 13:14 | XMS_ITS | Encounter Summary ---
Author Organization [facility] Address [address] [place] [address] Phone Care Team Providers Care Unit Control Clerk Name Role Phone Jacquelyn Chandler MD Primary Care Provider Jessy Andersen NP Primary Care Provider Encounter Details Date Type Department Care Team (Latest Contact Info) Description 03/13/2020 Transcribe Orders [address] [place] [address] Jacquelyn Chandler MD [address] [place] [address] [email or web address] Hyperlipidemia, unspecified hyperlipidemia type (Primary Dx); Hypertension, [...] st Contact Info) Description 09/28/2024 Procedure Pass [facility] - [address] [place] [address] 11/14/2024 11:30 AM EDT Office Visit [facility] [address] [place] [address] Brooke Pressley MD [address] [address] Kim Braun, PT 380 [place] [address] 11/21/2024 11:30 AM EDT Office Visit [facility] [address] [place] [address] Brooke Pressley MD [address] [address] Kim Braun, PT 380 [place] [address] 11/28/2024 11:30 AM EDT Office Visit [facility] [address] [place] [address] Brooke Pressley MD [address] [address] Kim Braun, PT 380 [place] [address] 05/10/2025 9:15 AM EDT Appointment [facility] [address] [place] [address] Jessy Andersen, CAST ASSOCIATE [address] [place] [address] documented as of this encounter Results * (ABNORMAL) LFTs (hepatic panel) (03/13/2020 10:40 AM EST) ALKALINE PHOSPHATASE 73 39 - 117 U/L [facility] TOTAL BILIRUBIN 0.5 0.0 - 1.2 mg/dL [facility] DIRECT BILIRUBIN <0.2 0 - 0.3 mg/dL [facility] Bilirubin (Indirect) NOT CALCULATED 0 - 1.5 mg/dL [facility] AST 25 0 - 37 U/L [facility] ALT 15 0 - 40 U/L [facility] TOTAL PROTEIN 8.1(H) 6.5 - 8.0 g/dL [facility] ALBUMIN 4.5 3.9 - 4.8 g/dL [facility] GLOBULIN 3.6 1 - 4.8 g/dL [facility] A/G Ratio 1.25 1.00 - 4.80 RATIO [facility] Blood 03/13/2020 10:4 0 AM EST 03/13/2020 10:48 AM EST Jacquelyn Chandler MD LAB BLOOD ORDERABLES Final R esult Performing Organization Address City/[facility]/ZIP Co de Phone Number [address] [address] * (ABNORMAL) 25-OH vitamin D (03/13/2020 10:40 AM EST) Pathologist [facility] 25 [place] VIT D (TOTAL) 24(L) 30 - 60 ng/mL [facility] Blood 03/13/2020 10:4 0 AM EST 03/13/2020 10:48 AM EST Jacquelyn Chandler MD LAB BLOOD ORDERABLES Final R esult [address] [address] * (ABNORMAL) CBC (03/13/2020 10:40 AM EST) Pathologist [facility] WBC 4.81 4.00 - 11.00 K/uL [facility] Comment:Note Reference Range updates to all CBC and Differential results. RBC 4.77 3.72 - 5.30 M/uL [facility] HGB 13.0 11.4 - 15.9 g/dL [facility] Comment:Note updated Referen ce Ranges for all CBC and Differential results. HCT 41.2 34.2 - 46.8 % [facility] PLT 274 140 - 430 K/uL [facility] MCV 86.4 78.0 - 97.0 fL [facility] MCH 27.3 25.0 - 33.0 pg [facility] MCHC 31.6(L) 32.0 - 36.0 g/dL [facility] RDW 13.2 11.0 - 16.0 % [facility] MPV 10.7 8.4 - 12.8 fl [facility] NRBC 0.00 0 /100 WBCs [facility] ABSOLUTE NRBC 0.00 0 K/uL [facility] Blood 03/13/2020 10:4 0 AM EST 03/13/2020 10:48 AM EST Jacquelyn Chandler MD LAB BLOOD ORDERABLES Final R esult [facility] 30 [place] [address] * Basic metabolic panel (03/13/2020 10:40 AM EST) SODIUM 142 133 - 146 mmol/L [facility] CHLORIDE 104 96 - 108 mmol/L [facility] POTASSIUM 4.3 3.3 - 5.1 mmol/L [facility] CO2 28 21 - 35 mmol/L [facility] BUN 19 6 - 19 mg/dL [facility] CREATININE 1.00 0.5 - 1.5 mg/dL [facility] GLUCOSE 96 70 - 99 mg/dL [facility] CALCIUM 10.1 8.4 - 10.3 mg/dL [facility] EGFR 60 >59 mL/min/1.7 3m2 [facility] Comment:Estimated glomerular filtration rate calculated using the CKD-EPI equation. ANION GAP 14 10 - 20 mmol/L [facility] Blood 03/13/2020 10:4 0 AM EST 03/13/2020 10:48 AM EST us Jacquelyn Chandler MD LAB BLOOD ORDERABLES Final R esult Performing Organization Address City/[facility]/ZIP Co de Phone Number [address] [address] * (ABNORMAL) Lipid panel (03/13/2020 10:40 AM EST) HDL 50 mg/dL [facility] Comment: Interpretation <40 mg/dL: Low HDL cholesterol (major risk factor for CHD) Greater than or equal to 60 mg/dL: High HDL cholesterol ( negative risk factor for CHD) HDL - cholesterol is affected by a number of factors, e.g. smoking, excerise, hormones, sex and age. CHOLESTEROL 229 0 - 240 mg/dL [facility] TRIGLYCERIDES 115 30 - 160 mg/dL [facility] LDL 156(H) 50 - 129 mg/dL [facility] Comment: LDL levels in terms of risk for coronary heart disease: <100 mg/dL: Optimal 100-129 mg/dL: Near or above optimal 130-159 mg/dL: Borderline high 160-189 mg/dL: High >190 mg/dL: Very High CARDIAC RISK RATIO 4.6(H) 3.3 - 4.4 C [facility] Blood 03/13/2020 10:4 0 AM EST 03/13/2020 10:48 AM EST us Jacquelyn Chandler MD LAB BLOOD ORDERABLES Final R esult Performing Organization Address City/[facility]/ZIP Co de Phone Number [address] [address] documented in this encounter Visit Diagnoses Diagnosis Hyperlipidemia, unspecified hyperlipidemia type- Primary Hypertension, unspecified type Vitamin D deficiency, unspecified Nonspecific elevation of levels of transaminase or lactic acid dehydrogenase (LDH) Other abnormalities of gait and mobility- Primary documented in this encounter Additional Health Concerns Infection Onset Date Last Indicated Resolved Time CoV-Risk 12/21/2021 12/21/2021 01/01/2022 1:22 AM EDT documented as of this encounter Care Teams Unit Control Clerk Relationship Specialty Start Date End Date Jacquelyn Chandler MD [address] [place] [address] [place] [address] [email or web address] PCP - General Internal Medicine 12/01/17 01/28/23 Jessy Andersen NP [address] [address] PCP - General Nurse Practitioner 01/29/23 documented as of this encounter Additional Source Comments The information contained in this document represents components of the legal health record. It is not the complete legal health record.[facility]
--- OUTSIDE RECORDS SUMMARY | 2024-11-08 13:14 | XMS_ITS | Encounter Summary ---
Author Organization [facility] Address [address] [place] [address] Phone Care Team Providers Care Recreational Resort Manager Name Role Phone Jacquelyn Chandler MD Primary Care Provider [phone] Jessy Andersen NP Primary Care Provider Encounter Details Date Type Department Care Team (Latest Contact Info) Description 02/03/2018 Transcribe Orders [address] [place] [address] Richa Leach, DONN [address], [address]. 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 Not on file Not on file documented as of this encounter Plan of Treatment Upcoming Encounters Date Type Department Care Team (Late st Contact Info) Description 09/28/2024 [facility] [address] [place] [address] 11/14/2024 11:30 AM EDT Office Visit [facility] [address] [place] [address] Brooke Pressley MD [address] [address] Kim Braun, PT 380 [place] [address] 11/21/2024 11:30 AM EDT Office Visit [facility] [address] [place] [address] Brooke Pressley MD [address] [address] Kim Braun, PT 380 [place] [address] 11/28/2024 11:30 AM EDT Office Visit [facility] [address] [place] [address] Brooke Pressley MD [address] [address] Kim Braun, PT 380 [place] [address] 05/10/2025 9:15 AM EDT Appointment [place] [address] [place] [address] Jessy Andersen, AMBIKA [address] [place] [address] documented as of this encounter Results * Immunoglobulin A (02/03/2018 8:43 AM EST) IgA 220 70 - 400 mg/dL [facility] Blood 02/03/2018 8:43 AM EST 02/03/2018 8:50 AM EST us Richa GONZALEZ-Abimael LAB BLOOD ORDERABLES Final Resu lt Performing Organization Address City/[facility]/ZIP Co de Phone Number [address] [address] * C-Reactive Protein (02/03/2018 8:43 AM EST) C REACTIVE PROTEIN 3.6 0.0 - 4.0 mg/L [facility] Blood 02/03/2018 8:43 AM EST 02/03/2018 8:50 AM EST us Richa GONZALEZ-Abimael LAB BLOOD ORDERABLES Final Resu lt Performing Organization Address [facility] Co de Phone Number [address] [address] * Comprehensive metabolic panel (02/03/2018 8:43 AM EST) SODIUM 140 133 - 146 mmol/L [facility] POTASSIUM 4.3 3.3 - 5.1 mmol/L [facility] CHLORIDE 103 96 - 108 mmol/L [facility] CO2 25 21 - 35 mmol/L [facility] BUN 15 6 - 19 mg/dL [facility] CREATININE 1.00 0.5 - 1.5 mg/dL [facility] GLUCOSE 88 70 - 99 mg/dL [facility] ALBUMIN 4.5 3.9 - 4.8 g/dL [facility] TOTAL PROTEIN 8.0 6.5 - 8.0 g/dL [facility] CALCIUM 9.9 8.4 - 10.3 mg/dL [facility] ALKALINE PHOSPHATASE 67 39 - 117 U/L [facility] TOTAL BILIRUBIN 0.5 0.0 - 1.2 mg/dL [facility] AST 26 0 - 37 U/L [facility] ALT 28 0 - 40 U/L [facility] GLOBULIN 3.5 1 - 4.8 g/dL [facility] EGFR 61 >59 mL/min/1.7 3m2 [facility] Comment:If patient is black, multiply result by 1.159. Estimated glomerular filtration rate calculated using the CKD-EPI equation. ANION GAP 16 10 - 20 mmol/L [facility] Blood 02/03/2018 8:43 AM EST 02/03/2018 8:50 AM EST Richa Leach PA-C LAB BLOOD ORDERABLES Final Resu lt Performing Organization Address [facility]/ZIP Co de Phone Number [address] [address] * (ABNORMAL) CBC (02/03/2018 8:43 AM EST) WBC 5.96 3.40 - 11.20 K/uL [facility] RBC 4.86(H) 3.80 - 4.80 M/uL [facility] HGB 13.2 12.0 - 15.0 g/dL [facility] HCT 41.7 36.0 - 46.0 % [facility] PLT 274 130 - 400 K/uL [facility] MCV 85.8 79.0 - 98.0 fL [facility] MCH 27.2 27.0 - 34.8 pg [facility] MCHC 31.7 31.5 - 36.0 g/dL [facility] RDW 13.6 10.8 - 14.6 % [facility] MPV 11.7 9.4 - 12.4 fl [facility] NRBC 0.00 0.00 /100 WBCs [facility] ABSOLUTE NRBC 0.00 0.00 K/uL [facility] Blood 02/03/2018 8:43 AM EST 02/03/2018 8:50 AM EST Richa Leach PA-C LAB BLOOD ORDERABLES Final Resu lt Performing Organization Address [facility] Co de Phone Number [address] [address] documented in this encounter Visit Diagnoses Diagnosis Abdominal pain, unspecified abdominal location- Primary Other abnormalities of gait and mobility- Primary documented in this encounter Additional Health Concerns Infection Onset Date Last Indicated Resolved Time CoV-Risk 12/21/2021 12/21/2021 01/01/2022 1:22 AM EDT documented as of this encounter Care Teams Recreational Resort Manager Relationship Specialty Start Date End Date Jacquelyn Chandler MD [address] [place] [address] [email or web address] PCP - General Internal Medicine 12/01/17 01/28/23 Jessy Andersen NP [address] [place] [address] PCP - General Nurse Practitioner 01/29/23 documented as of this encounter Additional Source Comments The information contained in this document represents components of the legal health record. It is not the complete legal health record.[facility]
--- OUTSIDE RECORDS SUMMARY | 2024-11-08 13:14 | XMS_ITS | Encounter Summary ---
Author Organization [facility] Address [address] [place] [address] Phone Care Team Providers Care Culinary Art Teacher Name Role Phone Jacquelyn Chandler MD Primary Care Provider Jessy Andersen NP Primary Care Provider Encounter Details Date Type Department Care Team (Late st Contact Info) Description 05/10/2020 Ancillary Orders Virtual Department 30 [place] [address] Jacquelyn Chandler MD [address] [place] [address] [email or web address] Pain in finger of left hand Social [...] st Contact Info) Description 09/28/2024 Procedure Pass [address] [place] [address] 11/14/2024 11:30 AM EDT Office Visit [address] [address] Brooke Pressley MD [address] [address] Kim Braun, PT 380 [place] [address] [email or web address] 11/21/2024 11:30 AM EDT Office Visit [facility] [address] [place] [address] Brooke Pressley MD [address] [address] Kim Braun, PT 380 [place] [address] [email or web address] 11/28/2024 11:30 AM EDT Office Visit [address] [address] Brooke Pressley MD [address] [address] Kim Braun, PT 380 [place] [address] [email or web address] 05/10/2025 9:15 AM EDT Appointment [address] [place] [address] Jessy Andersen NP [address] [place] [address] documented as of this encounter Results * [...] hand Pain in soft tissues of limb Other abnormalities of gait and mobility- Primary documented in this encounter Additional Health Concerns Infection Onset Date Last Indicated Resolved Time CoV-Risk 12/21/2021 12/21/2021 01/01/2022 1:22 AM EDT documented as of this encounter Care Teams Culinary Art Teacher Relationship Specialty Start Date End Date Jacquelyn Chandler MD [address] [place] [address] [email or web address] PCP - General Internal Medicine 12/01/17 01/28/23 Jessy Andersen NP [address] [place] [address] PCP - General Nurse Practitioner 01/29/23 documented as of this encounter Additional Source Comments The information contained in this document represents components of the legal health record. It is not the complete legal health record.[facility]
--- OUTSIDE RECORDS SUMMARY | 2024-11-08 13:14 | XMS_ITS | Encounter Summary ---
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 Not on file documented as of this encounter Plan of Treatment Upcoming Encounters Date Type Department Care Team (Late Contact Info) Description 09/28/2024 Procedure Pass [facility] - [address] [place] [address] 11/14/2024 11:30 AM EDT Office Visit [facility] [address] [place] [address] Brooke Pressley MD [address] [address] Kim Braun, PT 380 [place] [address] [email or web address] 11/21/2024 11:30 AM EDT Office Visit [facility] [address] [place] [address] Brooke Pressley MD [address] [address] Kim Braun, PT 380 [place] [address] [email or web address] 11/28/2024 11:30 AM EDT Office Visit [facility] [address] [place] [address] Brooke Pressley MD [address] [address] Kim Braun, PT 380 [place] [address] [email or web address] 05/10/2025 9:15 AM EDT Appointment [facility] - [address] [place] [address] Jessy Andersen, AMBIKA [address] [place] [address] documented as of this encounter Results * [...] documented as of this encounter Care Teams Collections Technician Relationship Specialty Start Date End Date Jacquelyn Chandler MD [address] [place] [address] PCP - General Internal Medicine 12/01/17 01/28/23 Jessy Andersen NP [address] [place] [address] PCP - General Nurse Practitioner 01/29/23 documented as of this encounter Additional Source Comments The information contained in this document represents components of the legal health record. It is not the complete legal health record.[facility]
--- OUTSIDE RECORDS SUMMARY | 2024-11-08 13:14 | XMS_ITS | Encounter Summary ---
Author Organization [facility] Address [address] [place] [address] [place] [address] Phone Care Team Providers Care Meal Temperer Name Role Phone Jacquelyn Chandler MD Primary [facility] GladwinJessy NP Primary Care Provider Encounter Details Date Type Department Care Team (Late st Contact Info) Description 01/06/2020 Transcribe Orders [address] [place] [address] Taqueria Govea MD [facility], [address] [place] [address] Social History Tobacco Use Types Packs/Day Years [...] st Contact Info) Description 09/28/2024 Procedure Pass [address] [place] [address] 11/14/2024 11:30 AM EDT Office Visit [facility] [address] [place] [address] Brooke Pressley MD [address] [address] Kim Braun, PT 380 [place] [address] [email or web address] 11/21/2024 11:30 AM EDT Office Visit [facility] [address] [place] [address] Brooke Pressley MD [address] [address] Kim Braun, PT 380 [place] [address] 11/28/2024 11:30 AM EDT Office Visit [address] [address] Brooke Pressley MD [address] [address] Kim Braun, PT 380 [place] [address] [email or web address] 05/10/2025 9:15 AM EDT Appointment [address] [place] [address] Jessy Andersen, AMBIKA [address] [place] [address] documented as of this encounter Visit Diagnoses Not on filedocumented in this encounter Additional Health Concerns Infection Onset Date Last Indicated Resolved Time CoV-Risk 12/21/2021 12/21/2021 01/01/2022 1:22 AM EDT documented as of this encounter Care Teams Meal Temperer Relationship Specialty Start Date End Date Jacquelyn Chandler MD [address] [place] [address] [email or web address] PCP - General Internal Medicine 12/01/17 01/28/23 Jessy Andersen NP [address] [place] [address] PCP - General Nurse Practitioner 01/29/23 documented as of this encounter Additional Source Comments The information contained in this document represents components of the legal health record. It is not the complete legal health record.[facility]
--- OUTSIDE RECORDS SUMMARY | 2024-11-08 13:14 | XMS_ITS | Encounter Summary ---
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 [address] [place] [address] Brooke Pressley MD [address] [address] Kim Braun, PT [address] [place] [address] [email or web address] 11/21/2024 11:30 AM EDT Office Visit [facility] [address] [place] [address] Brooke Pressley MD [address] [address] Kim Braun, PT [address] [place] [address] [email or web address] 11/28/2024 11:30 AM EDT Office Visit [address] [address] Brooke Pressley MD [address] [address] Kim Braun, PT 380 [place] [address] [email or web address] 05/10/2025 9:15 AM EDT Appointment [place] [address] [place] [address] Jessy Andersen, AMBIKA [address] [place] [address] documented as of this encounter Results * XR KNEE 4 OR MORE VIEWS (RIGHT) (03/29/2018 3:47 PM EST) Anatomical Region Laterality Modality Knee Right Radiographic Yolie ging 03/29/2018 4:09 PM EST Impressions 03/29/2018 4:12 PM EST Mild degenerative changes bilaterally. Chondrocalcinosis. POS - [id number] Narrative 03/29/2018 4:12 PM EST HISTORY: Right [...] Mild degenerative changes bilaterally. Chondrocalcinosis. POS - [id number] Jacquelyn Chandler MD IMG XR LOWER EXTREMITY Final Result * XR LUMBOSACRAL SPINE 4 OR MORE VIEWS (03/29/2018 3:46 PM EST) Anatomical Region Laterality Modality L-spine Radiographic Yolie ging 03/29/2018 4:19 PM EST Impressions 03/29/2018 4:21 PM EST Mild degenerative changes. No compression fractures. POS - [id number] Narrative 03/29/2018 4:21 PM EST HISTORY: Lower [...] degenerative changes. No compression fractures. POS - [id number] Jacquelyn Chandler MD IMG XR SPINE Final [...] presence unspecified Right knee pain, unspecified chronicity Other abnormalities of gait and mobility- Primary documented in this encounter Additional Health Concerns Infection Onset Date Last Indicated Resolved Time CoV-Risk 12/21/2021 12/21/2021 01/01/2022 1:22 AM EDT documented as of this encounter Care Teams Substitute Crossing Guard Relationship Specialty Start Date End Date Jacquelyn Chandler MD [address] [place] [address] PCP - General Internal Medicine 12/01/17 01/28/23 [facility] [address] [place] [address] PCP - General Nurse Practitioner 01/29/23 documented as of this encounter Additional Source Comments The information contained in this document represents components of the legal health record. It is not the complete legal health record.[facility]
--- OUTSIDE RECORDS SUMMARY | 2024-11-08 13:14 | XMS_ITS | Encounter Summary ---
Author Organization [facility] Address [address] [place] [address] Phone Care Team Providers Care Verification Rep Name Role Phone Jacquelyn Chandler MD Primary Care Provider Jessy Andersen NP Primary Care Provider Encounter Details Date Type Department Care Team (Latest Contact Info) Description 01/02/2020 Transcribe Orders [facility] [address] [place] [address] Geovani Kwan MD [address] [place] [address] Chest pain, unspecified type (Primary Dx) Social [...] st Contact Info) Description 09/28/2024 Procedure Pass [address] [place] [address] 11/14/2024 11:30 AM EDT Office Visit [facility] [address] [place] [address] Brooke Pressley MD [address] [address] Kim Braun, PT [address] [place] [address] 11/21/2024 11:30 AM EDT Office Visit [facility] [address] [place] [address] Brooke Pressley MD [address] [address] Kim Braun, PT 380 [place] [address] 11/28/2024 11:30 AM EDT Office Visit [facility] [address] [place] [address] Brooke Pressley MD [address] [address] Kim Braun, PT 380 [place] [address] 05/10/2025 9:15 AM EDT Appointment [address] [place] [address] Jessy Andersen, PLATE STACKER HAND [address] [facility] [place] [address] documented as of this encounter Results * CBC and differential (01/02/2020 8:42 AM EST) WBC 5.27 4.00 - 11.00 K/uL [facility] Comment:Note Reference Range updates to all CBC and Differential results. RBC 4.66 3.72 - 5.30 M/uL [facility] HGB 12.8 11.4 - 15.9 g/dL [facility] Comment:Note updated Referen ce Ranges for all CBC and Differential results. HCT 40.0 34.2 - 46.8 % [facility] PLT 270 140 - 430 K/uL [facility] MCV 85.8 78.0 - 97.0 fL [facility] MCH 27.5 25.0 - 33.0 pg [facility] MCHC 32.0 32.0 - 36.0 g/dL [facility] RDW 13.0 11.0 - 16.0 % [facility] MPV 11.2 8.4 - 12.8 fl [facility] NRBC 0.00 0 /100 WBCs [facility] ABSOLUTE NRBC 0.00 0 K/uL [facility] DIFF METHOD Auto [facility] NEUTS 53.2 43.0 - 75.0 % [facility] LYMPHS 35.9 18.2 - 47.4 % [facility] MONOS 7.6 4.00 - 11.00 % [facility] EOS 2.1 0.0 - 8.0 % [facility] BASOS 0.8 0.0 - 2.0 % [facility] Granulocytes, immature (%) 0.4 0.0 - 0.9 % [facility] ABSOLUTE NEUTS 2.81 1.80 - 7.70 K/uL [facility] ABSOLUTE LYMPHS 1.89 1.00 - 3.10 K/uL [facility] ABSOLUTE MONOS 0.40 0.20 - 0.80 K/uL [facility] ABSOLUTE EOS 0.11 0.00 - 0.80 K/uL [facility] ABSOLUTE BASOS 0.04 0.00 - 0.09 K/uL [facility] Granulocytes, immature 0.02 0.00 - 0.05 K/uL [facility] Blood 01/02/2020 8:42 AM EST 01/02/2020 8:44 AM EST us Renettar Denise Kwan MD LAB BLOOD ORDERABLES Final R esult [address] [address] * Basic metabolic panel (01/02/2020 8:42 AM EST) SODIUM 140 133 - 146 mmol/L [facility] CHLORIDE 103 96 - 108 mmol/L [facility] POTASSIUM 4.5 3.3 - 5.1 mmol/L [facility] CO2 28 21 - 35 mmol/L [facility] BUN 14 6 - 19 mg/dL [facility] CREATININE 1.00 0.5 - 1.5 mg/dL [facility] GLUCOSE 96 70 - 99 mg/dL [facility] CALCIUM 9.7 8.4 - 10.3 mg/dL [facility] EGFR 60 >59 mL/min/1.7 3m2 [facility] Comment:Estimated glomerular filtration rate calculated using the CKD-EPI equation. ANION GAP 14 10 - 20 mmol/L [facility] Blood 01/02/2020 8:42 AM EST 01/02/2020 8:44 AM EST us Renettar Denise Kwan MD LAB BLOOD ORDERABLES Final R esult Performing Organization Address [facility] Co de Phone Number [address] [address] documented in this encounter Visit Diagnoses Diagnosis Chest pain, unspecified type- Primary Other abnormalities of gait and mobility- Primary documented in this encounter Additional Health Concerns Infection Onset Date Last Indicated Resolved Time CoV-Risk 12/21/2021 12/21/2021 01/01/2022 1:22 AM EDT documented as of this encounter Care Teams Verification Rep Relationship Specialty Start Date End Date Jacquelyn Chandler MD [address] [place] [address] [email or web address] PCP - General Internal Medicine 12/01/17 01/28/23 Jessy Andersen NP [address] [place] [phone] (work) PCP - General Nurse Practitioner 01/29/23 documented as of this encounter Additional Source Comments The information contained in this document represents components of the legal health record. It is not the complete legal health record.[facility]
--- OUTSIDE RECORDS SUMMARY | 2024-11-08 13:14 | XMS_ITS | Encounter Summary ---
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 Not on file Not on file documented as of this encounter Plan of Treatment Upcoming Encounters Date Type Department Care Team (Late st Contact Info) Description 09/28/2024 Procedure Pass [address] [place] [address] 11/14/2024 11:30 AM EDT Office Visit [address] [address] Brooke Pressley MD [address] [address] Kim Braun, PT [address] [place] [address] 11/21/2024 11:30 AM EDT Office Visit [facility] [address] [place] [address] Brooke Pressley MD [address] [address] Kim Braun, PT [address] [place] [address] [email or web address] 11/28/2024 11:30 AM EDT Office Visit [address] [address] Brooke Pressley MD [address] [address] Kim Braun, PT [address] [place] [address] 05/10/2025 9:15 AM EDT Appointment [address] [place] [address] Jessy Andersen, AMBIKA [address] [place] [address] documented as of this encounter Results * XR CERVICAL SPINE 4-5 VIEWS (04/29/2018 11:11 AM EST) Anatomical Region Laterality Modality C-spine Radiographic Yolie ging 04/29/2018 11:5 4 AM EST Impressions 04/29/2018 11:56 AM EST Mild discogenic endplate changes C5-T1. Normal cervical spine alignment. POS - [id number] Narrative 04/29/2018 11:56 AM EST XR CERVICAL [...] C5-T1. Normal cervical spine alignment. POS - [id number] Jacquelyn Chandler MD IMG XR SPINE Final Result documented in this encounter Visit Diagnoses Diagnosis Cervicalgia Cervicalgia Other abnormalities of gait and mobility- Primary documented in this encounter Additional Health Concerns Infection Onset Date Last Indicated Resolved Time CoV-Risk 12/21/2021 12/21/2021 01/01/2022 1:22 AM EDT documented as of this encounter Care Teams Day Care Home Mother Relationship Specialty Start Date End Date Jacquelyn Chandler MD [address] [place] [address] [email or web address] PCP - General Internal Medicine 12/01/17 01/28/23 Jessy Andersen NP [address] [place] [phone] PCP - General Nurse Practitioner 01/29/23 documented as of this encounter Additional Source Comments The information contained in this document represents components of the legal health record. It is not the complete legal health record.[facility]
--- OUTSIDE RECORDS SUMMARY | 2024-11-08 13:14 | XMS_ITS | Encounter Summary ---
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 [place] Not on file Not on file Not on file documented as of this encounter Plan of Treatment Upcoming Encounters Date Type Department Care Team (Late st Contact Info) Description 09/28/2024 Procedure Pass [facility] - [address] [place] [address] 11/14/2024 11:30 AM EDT Office Visit [facility] [address] [place] [address] Brooke Pressley MD [address] [address] Kim Braun, PT [address] [place] [address] [email or web address] 11/21/2024 11:30 AM EDT Office Visit [facility] [address] [place] [address] Brooke Pressley MD [address] [address] Kim Braun, PT [address] [place] [address] [email or web address] 11/28/2024 11:30 AM EDT Office Visit [facility] [address] [place] [address] Brooke Pressley MD [address] [address] Kim Braun, PT [address] [place] [address] [email or web address] 05/10/2025 9:15 AM EDT Appointment [place] [address] [place] [address] Jessy Andersen, AMBIKA [address] [place] [address] documented as of this encounter Results * XR Knee Standing (Bilateral, Single View Only) (03/29/2018 3:48 PM EST) Anatomical Region Laterality Modality Knee Right, Knee Bilateral Radio graphic Imaging 03/29/2018 4:09 PM EST Impressions 03/29/2018 4:12 PM EST Mild degenerative changes bilaterally. Chondrocalcinosis. POS - [id number] Narrative 03/29/2018 4:12 PM EST HISTORY: Right [...] Mild degenerative changes bilaterally. Chondrocalcinosis. POS - [id number] Jacquelyn Chandler MD IMG XR LOWER EXTREMITY [...] documented as of this encounter Care Teams Hair Or Beauty Salon Assistant Relationship Specialty Start Date End Date Jacquelyn Chandler MD [address] [place] [address] [email or web address] PCP - General Internal Medicine 12/01/17 01/28/23 Jessy Andersen NP [address] [place] [address] PCP - General Nurse Practitioner 01/29/23 documented as of this encounter Additional Source Comments The information contained in this document represents components of the legal health record. It is not the complete legal health record.[facility]
--- OUTSIDE RECORDS SUMMARY | 2024-11-08 13:14 | XMS_ITS | Encounter Summary ---
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 Not on file documented as of this encounter Plan of Treatment Upcoming Encounters Date Type Department Care Team (Late st Contact Info) Description 09/28/2024 Procedure Pass [place] [address] [place] [address] 11/14/2024 11:30 AM EDT Office Visit [address] [address] Brooke Pressley MD [address] [address] Kim Braun, PT 380 [place] [address] 11/21/2024 11:30 AM EDT Office Visit [address] [address] Brooke Pressley MD [address] [address] Kim Braun, PT [address] [place] [address] 11/28/2024 11:30 AM EDT Office Visit [address] [address] Brooke Pressley MD [address] [address] Kim Braun, PT [address] [place] [address] 05/10/2025 9:15 AM EDT Appointment [address] [place] [address] Jessy Andersen, AMBIKA [address] [place] [address] documented as of this encounter Results * [...] for screening mammogram Visit for screening mammogram Other abnormalities of gait and mobility- Primary documented in this encounter Additional Health Concerns Infection Onset Date Last Indicated Resolved Time CoV-Risk 12/21/2021 12/21/2021 01/01/2022 1:22 AM EDT documented as of this encounter Care Teams Instructor Of Spanish Relationship Specialty Start Date End Date Jacquelyn Chandler MD [address] [place] [address] [email or web address] PCP - General Internal Medicine 12/01/17 01/28/23 Jessy Andersen NP [address] [place] [address] PCP - General Nurse Practitioner 01/29/23 documented as of this encounter Additional Source Comments The information contained in this document represents components of the legal health record. It is not the complete legal health record.[facility]
== END ==
LOC: HO.SL 10:55
PROVIDERS: PCP Nurse Practitioner; Visit Provider Psychiatry & Neurology Neurology
DX: R06.83 Snoring (principal); G47.10 Hypersomnia, unspecified
CPT/HCPCS: 95806

== ENCOUNTER → 2024-11-08 11:06 | Outpatient (BNV) | payer OTHER, SELFPAY | PROVIDERS: PCP Nurse Practitioner; Visit Provider Psychiatry & Neurology Neurology | DX: G47.10 Hypersomnia, unspecified (principal) | CPT/HCPCS: 95806 ==

== ENCOUNTER 2024-11-22 12:34 | Outpatient (REF) | payer OTHER, SELFPAY ==
--- OUTSIDE RECORDS SUMMARY | 2024-11-21 11:30 | XMS_ITS | Encounter Summary ---
Author Organization [facility] Address [address] [facility] [address] [place] [address] Phone Care Team Providers Care Brooch Maker Novelty Name Role Phone Jessy Andersen [facility] Primary Care Provide r Reason for Visit * Physical Therapy (Routine) - Authorized Specialty Diagnoses / Procedures Referred By Gabriele canales Referred To Contact Physical Therapy Diagnoses UNSTEADINESS ON FEET Brooke Pressley MD [address] [address] Phone: tel: fax: [facility] 30 [place] [address] Phone: tel: Referral ID Status Reason Start Date Expiration Date V isits Requested Visits Authorized [id number] Authorized 09/06/2024 03/01/2025 99 99 Encounter Details Date Type Department Care Team (Latest Contact Info) Description 11/21/2024 11:30 AM EDT Office Visit [facility] [address] [place], [place] [phone] Brooke Pressley MD [address] [address] Kim Braun, PT [address] [place], [place] [phone] [email or web address] Other abnormalities of gait and [...] Progress Notes * Kim Braun, PT - 11/21/2024 11:30 AM EDT Physical Therapy Treatment Note Patient Name: Danette Sheth Date of : 1955 This patient has attended 5 visits since the onset Physical Therapy. Referring MD: Brooke Pressley MD [address] [place] [address] Diagnosis: ICD-10-CM 1. Other abnormalities of gait and mobility R26.89 Date of Surgery: None Precautions: mild cognitive decline. Fall risk. Subjective comments: Pt reports balance feels better sometimes but not all the time. Definite improvement since she started PT. Interventions: See encounter report for minutes associated with each intervention. Interventions Min. Parameters THERAPEUTIC EXERCISE 18 Scifit stepper x7 mins, resistance=1.5 6# chair squats x10 x2 Stepups and lateral stepups to 8 box x10 x2(B) NEURO RE-EDUCATION 23 Lateral, forward stepping over mini hurdles Alt toe taps to 12 foam roller Single leg stance with opposite mini leg swings- D/C Single leg stance with 2-finger UE support Tandem walking F/B 3-way hip with slider x10 (B) Box steps (L)/(R) leading Home Exercise Program: Access Code: [email or web address] URL: [email or web address] Date: 11/14/2024 Prepared by: Kim Braun Exercises - Supine Bridge - 1 x daily - 2 sets - 10 reps - Sit to Stand - 1 x daily - 2 sets - 10 reps - Clamshell - 1 x daily - 2 sets - 10 reps - Side Stepping with Resistance at Ankles - 1 x daily - 2-5 sets - 10 reps - Single Leg Stance - 1 x daily - 3 reps - 15-30 secs hold Assessment: pt has difficulty with single leg stance, but performs other balance tasks without difficulty. Plan: Assess response to today's visit. Upcoming: Mini BEST test; Dribble soccer ball (L)/(R); alt toe taps to soccer ball; Kim Braun, TAYO [id number] documented in this encounter Plan of Treatment Upcoming Encounters Date Type Department Care Team (Late st Contact Info) Description 09/28/2024 Procedure Pass [facility] - [address] [place] [address] 11/28/2024 11:30 AM EDT Office Visit [facility] [address] [place] [address] Brooke Pressley MD [address] [place] [address] Kim Braun, PT [address] [place] [address] 05/10/2025 9:15 AM EDT Appointment [address] [place] [address] Jessy Andersen FNP [address] [place] [id number] documented as of this encounter Visit Diagnoses Diagnosis Other abnormalities of gait and mobility- Primary documented in this encounter Additional Health Concerns Assessment Noted Time PHQ-2 Depression Total Score: 0 09/02/19 10:16 AM EDT documented as of this encounter Care Teams Brooch Maker Novelty Relationship Specialty Start Date End Date Jessy Andersen FNP PCP - General Nurse Practitioner 01/29/23 documented as of this encounter Additional Source Comments The information contained in this document represents components of the legal health record. It is not the complete legal health record.[facility]
--- NOTE | 2024-11-22 12:52 | PFT_ITS ---
Flows: FEV1: 91 % of predicted at 2.05 L FVC: 93 % of predicted at 2.71 L FEV1/FVC: 76 % Bronchodilator response: Present in small to medium airways only Volumes: Total lung capacity: 88 % of predicted at 4.43 L Residual volume: 87 % of predicted at 1.66 L Slow vital capacity: 90 % of predicted at 2.77 L Expiratory reserve volume: 98 % of predicted at 0.73 L Diffusion capacity: Mildly decreased, corrects to normal after adjustment for alveolar ventilation. Impression: No obstructive or restrictive ventilatory defect. Bronchodilator response is present in small to medium airways only. MTDD
[2024-11-22 13:34] VITALS: PULSE 78; O2SAT 97
--- OUTSIDE RECORDS SUMMARY | 2024-11-22 15:26 | XMS_ITS | Encounter Summary ---
Author Organization [facility] Address [address] [place] [address] Phone Care Team Providers Care Child Psychology Teacher Name Role Phone Jacquelyn Chandler MD Primary Care Provider [facility] Jessy Tyra [facility] Primary Care Provide r Encounter Details Date Type Department Care Team (Latest Contact Info) Description 12/05/2021 Transcribe Orders Virtual Department 30 [place] [address] Nat Tam PA [address] [place] [address] Pelvic pain (Primary Dx) Social History Tobacco [...] st Contact Info) Description 09/28/2024 Procedure Pass [address] [place] [address] 11/28/2024 11:30 AM EDT Office Visit [facility] [address] [place] [address] Brooke Pressley MD 299 [facility] [address] [place] [address] Kim Braun, PT 380 [place] [address] 05/10/2025 9:15 AM EDT Appointment [address] [place] [address] Jessy Andersen FNP [address] [place] [address] documented as of this encounter Results * [...] documented as of this encounter Care Teams Child Psychology Teacher Relationship Specialty Start Date End Date Jacquelyn Chandler MD [address] [place] [address] [email or web address] PCP - General Internal Medicine 12/01/17 01/28/23 Jessy Andersen FNP [address] [place] [address] PCP - General Nurse Practitioner 01/29/23 documented as of this encounter Additional Source Comments The information contained in this document represents components of the legal health record. It is not the complete legal health record.[facility]
--- OUTSIDE RECORDS SUMMARY | 2024-11-22 15:26 | XMS_ITS | Encounter Summary ---
Author Organization [facility] Address [address] [place] [phone] Phone Care Team Providers Care Relay Assembler Name Role Phone Jacquelyn Chandler MD Primary Care Provider [facility] Primary Care Provide r Encounter Details Date Type Department Care Team (Latest Contact Info) Description 11/27/2021 Transcribe Orders [facility] Laboratory [address] [address] Nat Tam PA 10 [place] [address] Abdominal pain, left lower quadrant (Primary Dx); [...] st Contact Info) Description 09/28/2024 Procedure Pass [address] [place] [address] 11/28/2024 11:30 AM EDT Office Visit [facility] Rehabilitation Services [address] [place] [address] Brooke Pressley MD [address] [place] [address] Kim Braun, PT 380 [place] [address] [email or web address] 05/10/2025 9:15 AM EDT Appointment [address] [place] [address] Jessy Andersen FNP [address] [place] [address] documented as of this encounter Results * (ABNORMAL) 25-OH vitamin D (11/27/2021 11:43 AM EDT) 25 OH VIT D (TOTAL) 26(L) 30 - 60 ng/mL [facility] Blood 11/27/2021 11:4 3 AM EDT 11/27/2021 11:47 AM EDT us Nat GONZALEZ LAB BLOOD ORDERABLES Final Result [facility] 30 [place] [address] * Vitamin B12 (11/27/2021 11:43 AM EDT) VITAMIN B12 1,048 232 - 1,245 pg/mL [facility] Blood 11/27/2021 11:4 3 AM EDT 11/27/2021 11:47 AM EDT us Nat GONZALEZ LAB BLOOD ORDERABLES Final Result Performing Organization Address City/[facility] Co de Phone Number [address] [address] * CBC (11/27/2021 11:43 AM EDT) WBC 5.75 4.00 - 11.00 K/uL [facility] RBC 4.62 3.72 - 5.30 M/uL [facility] HGB 13.0 11.4 - 15.9 g/dL [facility] HCT 39.5 34.2 - 46.8 % [facility] PLT 286 140 - 430 K/uL [facility] MCV 85.5 78.0 - 97.0 fL [facility] MCH 28.1 25.0 - 33.0 pg [facility] MCHC 32.9 32.0 - 36.0 g/dL [facility] RDW 13.5 11.0 - 16.0 % [facility] MPV 11.1 8.4 - 12.8 [facility] Blood 11/27/2021 11:4 3 AM EDT 11/27/2021 11:47 AM EDT us Nat GONZALEZ LAB BLOOD ORDERABLES Final Result Performing Organization Address [facility] Co de Phone Number [address] [address] documented in this encounter Visit Diagnoses Diagnosis Abdominal pain, left lower quadrant- Primary Abdominal pain, right lower quadrant documented in this encounter Additional Health Concerns Infection Onset Date Last Indicated Resolved Time CoV-Risk 12/21/2021 12/21/2021 01/01/2022 1:22 AM EDT Assessment Noted Time PHQ-2 Depression Total Score: 0 07/30/19 10:09 AM EDT documented as of this encounter Care Teams Relay Assembler Relationship Specialty Start Date End Date Jacquelyn Chandler MD [address] [place] [phone] PCP - General Internal Medicine 12/01/17 01/28/23 Jessy Andersen FNP [address] [place] [phone] PCP - General Nurse Practitioner 01/29/23 documented as of this encounter Additional Source Comments The information contained in this document represents components of the legal health record. It is not the complete legal health record.[facility]
--- OUTSIDE RECORDS SUMMARY | 2024-11-22 15:26 | XMS_ITS | Encounter Summary ---
Author Organization [facility] Address [address] [place] [address] Phone Care Team Providers Care Fixed Income Manager Name Role Phone Jacquelyn Chandler MD Primary Care Provider [facility] Jessy Tyra [facility] Primary Care Provide r Encounter Details Date Type Department Care Team (Late st Contact Info) Description 06/24/2018 Ancillary Orders [facility], X-Ray - [address] [place] [address] Cammie Rodriguez, LEXIIC [address] [facility], [address] [place] [address] [email or web address] Left foot pain Social History Tobacco Use [...] 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 Not on file documented as of this encounter Plan of Treatment Upcoming Encounters Date Type Department Care Team (Late st Contact Info) Description 09/28/2024 Procedure Pass [address] [place] [address] 11/28/2024 11:30 AM EDT Office Visit [facility] Rehabilitation Services [address] [place] [address] Brooke Pressley MD [address] [facility] [address] [place] [address] Kim Braun, PT 380 [place] [address] 05/10/2025 9:15 AM EDT Appointment [address] [place] [address] Jessy Andersen FNP 73 [place] [address] documented as of this encounter Results * XR FOOT 3 OR MORE VIEWS (LEFT) (06/24/2018 10:30 AM EDT) Anatomical Region Laterality Modality Foot Left Radiographic Yolie ging 06/24/2018 12:3 4 PM EDT Impressions 06/24/2018 3:12 PM EDT Calcaneal spurring and ligamentous calcification. No fracture or dislocation. POS - [id number] Narrative 06/24/2018 3:12 PM EDT XR FOOT [...] spurring. Procedure Note Indy Barker MD - 04/25/2019 XR FOOT 3 OR MORE VIEWS (LEFT) [...] calcification. No fracture or dislocation. POS - [id number] Cammie Rodriguez PA-C IMNino XR LOWER EXTREMITY Final Result documented in this encounter Visit Diagnoses Diagnosis Left foot pain Pain in soft tissues of limb Left foot pain Pain in soft tissues of limb documented in this encounter Additional Health Concerns Infection Onset Date Last Indicated Resolved Time CoV-Risk 12/21/2021 12/21/2021 01/01/2022 1:22 AM EDT documented as of this encounter Care Teams Fixed Income Manager Relationship Specialty Start Date End Date Jacquelyn Chandler MD [address] [place] [phone] [email or web address] PCP - General Internal Medicine 12/01/17 01/28/23 Jessy Andersen FNP [address] [place] [phone] PCP - General Nurse Practitioner 01/29/23 documented as of this encounter Additional Source Comments The information contained in this document represents components of the legal health record. It is not the complete legal health record.[facility]
--- OUTSIDE RECORDS SUMMARY | 2024-11-22 15:26 | XMS_ITS | Encounter Summary ---
Author Organization [facility] Address [address] [place] [phone] Phone Care Team Providers Care Hide Handler Name Role Phone Jacquelyn Chandler MD Primary [facility] Primary Care Provide r Encounter Details Date Type Department Care Team (Late st Contact Info) Description 09/26/2021 Procedure Pass [facility], Ct Scan - [address] [address] Social History Tobacco Use Types Packs/Day Years [...] Contact Info) Description 09/28/2024 Procedure Pass [facility] - [address] [place] [address] 11/28/2024 11:30 AM EDT Office Visit [facility] Rehabilitation Services [address] [place] [address] Brooke Pressley MD [address] [facility] [address] [place] [address] Kim Braun, PT 380 [place] [address] 05/10/2025 9:15 AM EDT Appointment [address] [place] [address] Jessy Andersen FNP [address] [place] [address] documented as of this encounter Visit Diagnoses Not on filedocumented in this encounter Additional Health Concerns Infection Onset Date Last Indicated Resolved Time CoV-Risk 12/21/2021 12/21/2021 01/01/2022 1:22 AM EDT Assessment Noted Time PHQ-2 Depression Total Score: 0 07/30/19 10:09 AM EDT documented as of this encounter Care Teams Hide Handler Relationship Specialty Start Date End Date Jacquelyn Chandler MD [address] [place] [phone] [email or web address] PCP - General Internal Medicine 12/01/17 01/28/23 Jessy Andersen FNP [address] [place] [phone] PCP - General Nurse Practitioner 01/29/23 documented as of this encounter Additional Source Comments The information contained in this document represents components of the legal health record. It is not the complete legal health record.[facility]
--- OUTSIDE RECORDS SUMMARY | 2024-11-22 15:27 | XMS_ITS | Encounter Summary ---
Author Organization [facility] Address [address] [place] [address] Phone Care Team Providers Care Credit Control Assistant Name Role Phone Jacquelyn Chandler MD Primary Care Provider [place], [place] Tyra [facility] Primary Care Provide r Reason for Referral * MRI/CAT Scan - Closed Specialty Diagnoses / Procedures Referred By Gabriele canales Referred To Contact Radiology Diagnoses Nausea LLQ pain Procedures CT Abdomen/Pelvis Seth Jeter MD Phone: tel: fax: [email or web address] Referral ID Status Reason Start Date Expiration Date Visits Re quested Visits Authorized [id number] Closed 08/17/2018 11/15/2018 1 1 Encounter Details Date Type Department Care Team (Latest Contact Info) Description 08/18/2018 Transcribe Orders Virtual Department 30 [place] [address] Seth Jeter MD [address] [place] [phone] [email or web address] Nausea (Primary Dx); LLQ pain Social History [...] 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 Not on file Not on file documented as of this encounter Plan of Treatment Upcoming Encounters Date Type Department Care Team (Late st Contact Info) Description 09/28/2024 Procedure Pass [address] [place] [address] 11/28/2024 11:30 AM EDT Office Visit [facility] Rehabilitation Services [address] [place] [address] Brooke Pressley MD 299 [facility] [address] [place] [address] Kim Braun, PT 380 [place] [address] 05/10/2025 9:15 AM EDT Appointment [address] [place] [address] Jessy Andersen FNP [address] [place] [address] documented as of this encounter Results * [...] only. TOTAL CTDIvol: 5.8 mGy POS - [id number] Edited by: Karen Jin on 08/26/2018 10:37 [...] only. TOTAL CTDIvol: 5.8 mGy POS - [id number] Edited by: Karen Jin on 08/26/2018 10:37 [...] documented as of this encounter Care Teams Credit Control Assistant Relationship Specialty Start Date End Date Jacquelyn Chandler MD [address] [place] [phone] [email or web address] PCP - General Internal Medicine 12/01/17 01/28/23 Jessy Andersen FNP [address] [place] [address] [place] [address] PCP - General Nurse Practitioner 01/29/23 documented as of this encounter Additional Source Comments The information contained in this document represents components of the legal health record. It is not the complete legal health record.[facility]
--- OUTSIDE RECORDS SUMMARY | 2024-11-22 15:27 | XMS_ITS | Encounter Summary ---
Author Organization [employer] Address [address] [facility] 7t [place] [address] Care Team Providers Care Flight Controls Engineer Name Role Phone [facility] Primary Care Provider [phone] Encounter Details Date Type Department Care Team (Late st Contact Info) Description 11/03/2024 Orders Only [facility] [address] [place] [address] Jessy Andersen, [facility] [address] [place] [address] Social History Tobacco Use Types Packs/Day Years [...] Description 12/22/2024 11:40 AM EDT Office Visit [facility] [address] [place] [address] [facility] [address] [place] [address] documented as of this encounter Procedures Procedure Name Priority Date/Time Associated Diagnosis Comments SED RATE BY MODIFIED WESTERGREN Routine 11/02/2024 2:06 PM EDT CBC WITH AUTO DIFFERENTIAL Routine 11/02/2024 2:06 PM EDT documented in this encounter Results * Sed Rate by Modified Westergren (11/02/2024 2:06 PM EDT) Blood Venous blood specimen / Unknown [facility] LAB BLOOD ORDERABLES Ana l Result * CBC auto differential (11/02/2024 2:06 PM EDT) Blood Venous blood specimen / Unknown [facility] LAB BLOOD ORDERABLES Ana l Result documented in this encounter Visit Diagnoses Not on filedocumented in this encounter Care Teams Flight Controls Engineer Relationship Specialty Start Date End Date [facility] [address] [place] [address] PCP - General Family Medicine 10/01/22 documented as of this encounter
--- OUTSIDE RECORDS SUMMARY | 2024-11-22 15:27 | XMS_ITS | Encounter Summary ---
Author Organization [facility] Address [address] [facility] [address] [place] [address] Phone Care Team Providers Care Personal Caregiver Name Role Phone Jacquelyn Chandler MD Primary [facility] Provider [facility] Primary Care Provide r Encounter Details Date Type Department Care Team (Late Contact Info) Description 06/24/2018 Ancillary Orders [facility] [address] [address] Cammie Rodriguez, DONN [address] [facility], [address] [place] [address] [email or web address] Social History Tobacco Use Types Packs/Day Years [...] 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 file documented as of this encounter Plan of Treatment Upcoming Encounters Date Type Department Care Team (Late st Contact Info) Description 09/28/2024 Procedure Pass [address] [place] [address] 11/28/2024 11:30 AM EDT Office Visit [facility] Rehabilitation Services [address] [place] [address] Brooke Pressley MD 299 [facility] [address] [place] [address] Kim Braun, PT 380 [place] [address] 05/10/2025 9:15 AM EDT Appointment [address] [place] [address] Jessy Andersen FNP [address] [place] [address] documented as of this encounter Visit Diagnoses Not on filedocumented in this encounter Additional Health Concerns Infection Onset Date Last Indicated Resolved Time CoV-Risk 12/21/2021 12/21/2021 01/01/2022 1:22 AM EDT documented as of this encounter Care Teams Personal Caregiver Relationship Specialty Start Date End Date Jacquelyn Chandler MD [address] [place] [phone] PCP - General Internal Medicine 12/01/17 01/28/23 Jessy Andersen FNP [address] [place] [phone] PCP - General Nurse Practitioner 01/29/23 documented as of this encounter Additional Source Comments The information contained in this document represents components of the legal health record. It is not the complete legal health record.[facility]
--- OUTSIDE RECORDS SUMMARY | 2024-11-22 15:27 | XMS_ITS | Encounter Summary ---
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 Not on file documented as of this encounter Plan of Treatment Upcoming Encounters Date Type Department Care Team (Late st Contact Info) Description 09/28/2024 Procedure Pass [address] [place] [address] 11/28/2024 11:30 AM EDT Office Visit [facility] Rehabilitation Services [address] [place] [address] Brooke Pressley MD [address] [facility] [address] [place] [address] Kim Braun, PT [address] [place] [address] 05/10/2025 9:15 AM EDT Appointment [address] [place] [address] Jessy Andersen, HYDRAULIC LIFT DRIVER [address] [place] [address] documented as of this encounter Results * Creatinine/eGFR (08/16/2018 9:25 AM EDT) CREATININE 0.90 0.5 - 1.5 mg/dL [facility] EGFR 69 >59 mL/min/1.7 3m2 [facility] Comment:If patient is black, multiply result by 1.159. Estimated glomerular filtration rate calculated using the CKD-EPI equation. Blood 08/16/2018 9:25 AM EDT 08/16/2018 9:29 AM EDT us Seth Jeter MD LAB BLOOD ORDERABLES Final R esult [facility] [address] [place] [address] * BUN (08/16/2018 9:25 AM EDT) BUN 13 6 - 19 mg/dL [facility] Blood 08/16/2018 9:25 AM EDT 08/16/2018 9:29 AM EDT us Seth Jeter MD LAB BLOOD ORDERABLES Final R esult [facility] [address] [place] [address] documented in this encounter Visit Diagnoses Diagnosis LLQ pain- Primary Abdominal pain, left lower quadrant Nausea Nausea alone documented in this encounter Additional Health Concerns Infection Onset Date Last Indicated Resolved Time CoV-Risk 12/21/2021 12/21/2021 01/01/2022 1:22 AM EDT documented as of this encounter Care Teams Labor Delivery Rn Relationship Specialty Start Date End Date Jacquelyn Chandler MD [address] [place] [phone] [email or web address] PCP - General Internal Medicine 12/01/17 01/28/23 Jessy Andersen FNP [address] [place] [phone] PCP - General Nurse Practitioner 01/29/23 documented as of this encounter Additional Source Comments The information contained in this document represents components of the legal health record. It is not the complete legal health record.[facility]
--- OUTSIDE RECORDS SUMMARY | 2024-11-22 15:27 | XMS_ITS | Encounter Summary ---
Author Organization [facility] Address [address] [place] [address] Phone Care Team Providers Care Plug Shaper Hand Name Role Phone Jacquelyn Chandler MD Primary Care Provider [phone] [facility] Primary Care Provide r Encounter Details Date Type Department Care Team (Latest Contact Info) Description 11/30/2018 Transcribe Orders [facility] [address] [place] [address] Jacquelyn Chandler MD [address] [place] [address] [email or web address] Pain in joint, multiple sites (Primary Dx); [...] 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 Not on file documented as of this encounter Plan of Treatment Upcoming Encounters Date Type Department Care Team (Late st Contact Info) Description 09/28/2024 Procedure Pass [address] [place] [address] 11/28/2024 11:30 AM EDT Office Visit [facility] Services [address] [place] [address] Brooke Pressley MD [address] [facility] [address] [place] [address] Kim Bruan, PT [address] [place] [address] 05/10/2025 9:15 AM EDT Appointment [address] [place] [address] Jessy Andersen, DEHYDRATION UNIT OPERATOR [address] [place] [address] documented as of this encounter Results * Homocysteine (11/30/2018 9:10 AM EDT) HOMOCYSTEINE, TOTAL 8.1 0 - 14.2 umol/L [facility] Blood 11/30/2018 9:10 AM EDT 11/30/2018 9:17 AM EDT us Jacquelyn Chandler MD LAB BLOOD ORDERABLES Final R esult Performing Organization Address City/[facility]/ZIP Co de Phone Number [address] [address] * Vitamin B12 (11/30/2018 9:10 AM EDT) VITAMIN B12 655 232 - 1,245 pg/mL [facility] Blood 11/30/2018 9:10 AM EDT 11/30/2018 9:17 AM EDT us Jacquelyn Chandler MD LAB BLOOD ORDERABLES Final R esult [facility] [address] [place] [address] * Folate (11/30/2018 9:10 AM EDT) FOLIC ACID 13.5 4.2 - 19.9 ng/mL [facility] Blood 11/30/2018 9:10 AM EDT 11/30/2018 9:17 AM EDT Jacquelyn Chandler MD LAB BLOOD ORDERABLES Final R esult Performing Organization Address [facility] Co de Phone Number [facility] [address] [place] [address] * Methylmalonic acid, serum (11/30/2018 9:10 AM EDT) Pathologist [facility] METHYLMALONIC ACID 0.12 <=0.40 nmol/mL [facility] DPT OF LAB MED AND PAT+ Comment: (NOTE) ADDITIONAL INFORMATION This test was developed and its performance characteristics determined by [facility] in a manner consistent with CLIA requirements. This test has not been cleared or approved by the U.S. Food and Drug Administration. Blood 11/30/2018 9:10 AM EDT 11/30/2018 2:18 PM EDT Jacquelyn Chandler MD LAB BLOOD ORDERABLES Final R [facility] Performing Organization Address City/[facility] Co de Phone Number [facility] DPT OF LAB MED AND PAT+ [address] [place] [address] * Basic metabolic panel (11/30/2018 9:10 AM EDT) SODIUM 141 133 - 146 mmol/L [facility] CHLORIDE 103 96 - 108 mmol/L [facility] POTASSIUM 4.8 3.3 - 5.1 mmol/L [facility] CO2 26 21 - 35 mmol/L [facility] BUN 18 6 - 19 mg/dL [facility] CREATININE 0.90 0.5 - 1.5 mg/dL [facility] GLUCOSE 95 70 - 99 mg/dL [facility] CALCIUM 9.7 8.4 - 10.3 mg/dL [facility] EGFR 69 >59 mL/min/1.7 3m2 [facility] Comment:If patient is black, multiply result by 1.159. Estimated glomerular filtration rate calculated using the CKD-EPI equation. ANION GAP 17 10 - 20 mmol/L [facility] Blood 11/30/2018 9:10 AM EDT 11/30/2018 9:17 AM EDT us Jacquelyn Chandler MD LAB BLOOD ORDERABLES Final R esult Performing Organization Address [facility] Co de Phone Number [address] [address] * (ABNORMAL) Lipid panel (11/30/2018 9:10 AM EDT) HDL 45 mg/dL [facility] Comment: Interpretation <40 mg/dL: Low HDL cholesterol (major risk factor for CHD) Greater than or equal to 60 mg/dL: High HDL cholesterol ( negative risk factor for CHD) HDL - cholesterol is affected by a number of factors, e.g. smoking, excerise, hormones, sex and age. CHOLESTEROL 323(H) 0 - 240 mg/dL [facility] TRIGLYCERIDES 222(H) 30 - 160 mg/dL [facility] LDL 234(H) 50 - 129 mg/dL [facility] Comment: LDL levels in terms of risk for coronary heart disease: <100 mg/dL: Optimal 100-129 mg/dL: Near or above optimal 130-159 mg/dL: Borderline high 160-189 mg/dL: High >190 mg/dL: Very High CARDIAC RISK RATIO 7.2(H) 3.3 - 4.4 C [facility] Blood 11/30/2018 9:10 AM EDT 11/30/2018 9:17 AM EDT us Jacquelyn Chandler MD LAB BLOOD ORDERABLES Final R esult Performing Organization Address City/[facility]/ZIP Co de Phone Number [address] [address] * (ABNORMAL) Lyme screen with reflex to Western blot, blood (11/30/2018 9:10 AM EDT) Lyme AB IgG Negative Negative [facility] Lyme AB IgM Equivocal(A) Negative [facility] Comment:The Lyme Disease Ant ibody, Confirmation, Serum (Western Blot) has been reflexed. The results will follow. Blood 11/30/2018 9:10 AM EDT 11/30/2018 9:17 AM EDT us Jacquelyn Chandler MD LAB BLOOD ORDERABLES Final R esult Performing Organization Address City/[facility]/ZIP Co de Phone Number [address] [address] * Sedimentation rate (ESR) (11/30/2018 9:10 AM EDT) Pathologist [facility] ESR 17 0 - 30 mm/h [facility] Blood 11/30/2018 9:10 AM EDT 11/30/2018 9:17 AM EDT Jacquelyn Chandler MD LAB BLOOD ORDERABLES Final R esult Performing Organization Address [facility] Co de Phone Number [address] [address] * CPK (creatine kinase) (11/30/2018 9:10 AM EDT) Pathologist [facility] CREATINE KINASE 40 21 - 215 U/L [facility] Blood 11/30/2018 9:10 AM EDT 11/30/2018 9:17 AM EDT Jacquelyn Chandler MD LAB BLOOD ORDERABLES Final R esult Performing Organization Address [facility] Co de Phone Number [address] [address] * CCP IgG antibodies (11/30/2018 9:10 AM EDT) ANTI-CCP IGG <8 0 - 16 U/mL [facility] Blood 11/30/2018 9:10 AM EDT 11/30/2018 9:17 AM EDT us Jacquelyn Chandler MD LAB BLOOD ORDERABLES Final R esult [facility] [address] [place] [address] * CBC and differential (11/30/2018 9:10 AM EDT) WBC 5.14 3.40 - 11.20 K/uL [facility] RBC 4.77 3.80 - 4.80 M/uL [facility] HGB 13.3 12.0 - 15.0 g/dL [facility] HCT 40.6 36.0 - 46.0 % [facility] PLT 283 130 - 400 K/uL [facility] MCV 85.1 79.0 - 98.0 fL [facility] MCH 27.9 27.0 - 34.8 pg [facility] MCHC 32.8 31.5 - 36.0 g/dL [facility] RDW 13.5 10.8 - 14.6 % [facility] MPV 11.2 9.4 - 12.4 fl [facility] NRBC 0.00 0.00 /100 WBCs [facility] ABSOLUTE NRBC 0.00 0.00 K/uL [facility] DIFF METHOD Auto [facility] NEUTS 60.6 45.30 - 77.70 % [facility] LYMPHS 30.0 12.30 - 39.70 % [facility] MONOS 6.2 4.10 - 12.80 % [facility] EOS 1.8 0 - 7.2 % [facility] BASOS 1.2 0 - 2.80 % [facility] Granulocytes, immature (%) 0.2 0.0 - 0.9 % [facility] ABSOLUTE NEUTS 3.12 1.40 - 7.70 K/uL [facility] ABSOLUTE LYMPHS 1.54 0.60 - 3.20 K/uL [facility] ABSOLUTE MONOS 0.32 0.11 - 0.59 K/uL [facility] ABSOLUTE EOS 0.09 0.01 - 0.50 K/uL [facility] ABSOLUTE BASOS 0.06 0.00 - 0.08 K/uL [facility] Granulocytes, immature 0.01 0.00 - 0.05 K/uL [facility] Blood 11/30/2018 9:10 AM EDT 11/30/2018 9:17 AM EDT us Jacquelyn Chandler MD LAB BLOOD ORDERABLES Final R esult Performing Organization Address [facility]/ZIP Co de Phone Number [address] [address] * (ABNORMAL) C-Reactive Protein (11/30/2018 9:10 AM EDT) C REACTIVE PROTEIN 8.6(H) 0.0 - 4.0 mg/L [facility] Blood 11/30/2018 9:10 AM EDT 11/30/2018 9:17 AM EDT us Jacquelyn Chandler MD LAB BLOOD ORDERABLES Final R esult Performing Organization Address [facility] Co de Phone Number [address] [address] * Antinuclear antibody (NEGAR) (11/30/2018 9:10 AM EDT) NEGRA SCREEN ON HEP 2 Negative Negative [facility] Blood 11/30/2018 9:10 AM EDT 11/30/2018 9:17 AM EDT us Jacquelyn Chandler MD LAB BLOOD ORDERABLES Final R esult Performing Organization Address [facility] Co de Phone Number [address] [address] documented in this encounter Visit Diagnoses Diagnosis Pain in joint, multiple sites- Primary Hyperlipidemia, unspecified hyperlipidemia type Annual physical exam Routine general medical examination at a health care facility Mild neurocognitive disorder documented in this encounter Additional Health Concerns Infection Onset Date Last Indicated Resolved Time CoV-Risk 12/21/2021 12/21/2021 01/01/2022 1:22 AM EDT documented as of this encounter Care Teams Plug Shaper Hand Relationship Specialty Start Date End Date Jacquelyn Chandler MD [address] [place] [address] [email or web address] PCP - General Internal Medicine 12/01/17 01/28/23 Jessy Andersen FNP [address] [place] [address] PCP - General Nurse Practitioner 01/29/23 documented as of this encounter Additional Source Comments The information contained in this document represents components of the legal health record. It is not the complete legal health record.[facility]
--- OUTSIDE RECORDS SUMMARY | 2024-11-22 15:27 | XMS_ITS | Encounter Summary ---
Author Organization [facility] Address [address] [place] [address] Phone Care Team Providers Care Culinary Intern Name Role Phone Jacquelyn Chandler MD Primary Care Provider [phone] [facility] Primary Care Provide r Reason for Referral * Outpatient Procedure - Closed Specialty Diagnoses / Procedures Referred By Gabriele canales Referred To Contact Radiology Diagnoses Abdominal pain, epigastric Nausea Procedures NM Gastric Emptying Seth Jeter MD Phone: tel: fax: [email or web address] Referral ID Status Reason Start Date Expiration Date Visits Re quested Visits Authorized [id number] Closed 06/07/2018 06/07/2019 1 1 Encounter Details Date Type Department Care Team (Latest Contact Info) Description 06/07/2018 Transcribe Orders Virtual Department [address] [place] [address] Seth Jeter MD [address] [place] [phone] [email or web address] Abdominal pain, epigastric (Primary Dx); Nausea Social [...] 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 Not on file documented as of this encounter Plan of Treatment Upcoming Encounters Date Type Department Care Team (Late st Contact Info) Description 09/28/2024 Procedure Pass [address] [place] [address] 11/28/2024 11:30 AM EDT Office Visit [facility] Rehabilitation Services [address] [place] [address] Brooke Pressley MD [address] [facility] [address] [place] [address] Kim Braun, PT [address] [place] [address] 05/10/2025 9:15 AM EDT Appointment [address] [place] [address] Jessy Andersen FNP [address] [place] [address] documented as of this encounter Results * [...] POS [id number] us Seth Jeter MD IMG SC ABDOMEN Final Result * US ABDOMEN LIMITED RIGHT UPPER QUADRANT (06/30/2018 8:28 AM EDT) Anatomical Region Laterality Modality Abdomen Ultrasound 06/30/2018 8:22 AM EDT Impressions 06/30/2018 8:33 AM EDT No findings to account for the patient's symptoms. POS [id number] Narrative 06/30/2018 8:33 AM EDT COMPARISON: None. [...] to account for the patient's symptoms. POS [id number] us Seth Jeter MD IMG US ABDOMEN Final Result documented in this encounter Visit Diagnoses Diagnosis Abdominal pain, epigastric- Primary Nausea Nausea alone Abdominal pain, epigastric Nausea Nausea alone Abdominal pain, epigastric Nausea Nausea alone documented in this encounter Additional Health Concerns Infection Onset Date Last Indicated Resolved Time CoV-Risk 12/21/2021 12/21/2021 01/01/2022 1:22 AM EDT documented as of this encounter Care Teams Culinary Intern Relationship Specialty Start Date End Date Jacquelyn Chandler MD [address] [place] [phone] PCP - General Internal Medicine 12/01/17 01/28/23 [place], [place] GEOVANNA Mary [address] [place] [address] PCP - General Nurse Practitioner 01/29/23 documented as of this encounter Additional Source Comments The information contained in this document represents components of the legal health record. It is not the complete legal health record.[facility]
--- OUTSIDE RECORDS SUMMARY | 2024-11-22 15:27 | XMS_ITS | Encounter Summary ---
Author Organization [facility] Address [address] [place] [address] [place] [address] Phone Care Team Providers Care Warp Knitter Helper Name Role Phone Jacquelyn Chandler MD Primary Care Provider [facility] Primary Care Provide r Encounter Details Date Type Department Care Team (Late st Contact Info) Description 04/29/2018 Transcribe Orders [facility] [address] [place] [address] Jacquelyn Chandler MD [address] [place] [address] [email or web address] Central perforation of tympanic membrane of right [...] 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 Not on file documented as of this encounter Plan of Treatment Upcoming Encounters Date Type Department Care Team (Late st Contact Info) Description 09/28/2024 Procedure Pass [address] [place] [address] 11/28/2024 11:30 AM EDT Office Visit [facility] Rehabilitation Services [address] [place] [address] Brooke Pressley MD [address] [facility] [address] [place] [address] Kim Braun, PT [address] [place] [address] 05/10/2025 9:15 AM EDT Appointment [address] [place] [address] Jessy Andersen, ANTENNA DESIGN ENGINEER [address] [place] [address] documented as of this encounter Results * CBC and differential (04/29/2018 11:30 AM EST) WBC 5.51 3.40 - 11.20 K/uL [facility] RBC 4.80 3.80 - 4.80 M/uL [facility] HGB 13.1 12.0 - 15.0 g/dL [facility] HCT 40.2 36.0 - 46.0 % [facility] PLT 294 130 - 400 K/uL [facility] MCV 83.8 79.0 - 98.0 fL [facility] MCH 27.3 27.0 - 34.8 pg [facility] MCHC 32.6 31.5 - 36.0 g/dL [facility] RDW 13.1 10.8 - 14.6 % [facility] MPV 11.0 9.4 - 12.4 [facility] NRBC 0.00 0.00 /100 WBCs [facility] ABSOLUTE NRBC 0.00 0.00 K/uL [facility] DIFF METHOD Auto [facility] NEUTS 54.6 45.30 - 77.70 % [facility] LYMPHS 35.9 12.30 - 39.70 % [facility] MONOS 6.0 4.10 - 12.80 % [facility] EOS 2.4 0 - 7.2 % [facility] BASOS 0.9 0 - 2.80 % [facility] Granulocytes, immature (%) 0.2 0.0 - 0.9 % [facility] ABSOLUTE NEUTS 3.01 1.40 - 7.70 K/uL [facility] ABSOLUTE LYMPHS 1.98 0.60 - 3.20 K/uL [facility] ABSOLUTE MONOS 0.33 0.11 - 0.59 K/uL [facility] ABSOLUTE EOS 0.13 0.01 - 0.50 K/uL [facility] ABSOLUTE BASOS 0.05 0.00 - 0.08 K/uL [facility] Granulocytes, immature 0.01 0.00 - 0.05 K/uL [facility] Blood 04/29/2018 11:3 0 AM EST 04/29/2018 11:37 AM EST Jacquelyn Chandler MD LAB BLOOD ORDERABLES Final R esult [facility] [address] [place] [address] * Basic metabolic panel (04/29/2018 11:30 AM EST) SODIUM 137 133 - 146 mmol/L [facility] CHLORIDE 101 96 - 108 mmol/L [facility] POTASSIUM 4.6 3.3 - 5.1 mmol/L [facility] CO2 29 21 - 35 mmol/L [facility] BUN 17 6 - 19 mg/dL [facility] CREATININE 0.90 0.5 - 1.5 mg/dL [facility] GLUCOSE 88 70 - 99 mg/dL [facility] CALCIUM 9.6 8.4 - 10.3 mg/dL [facility] EGFR 69 >59 mL/min/1.7 3m2 [facility] Comment:If patient is black, multiply result by 1.159. Estimated glomerular filtration rate calculated using the CKD-EPI equation. ANION GAP 12 10 - 20 mmol/L [facility] Blood 04/29/2018 11:3 0 AM EST 04/29/2018 11:37 AM EST us Jacquelyn Chandler MD LAB BLOOD ORDERABLES Final R esult [facility] [address] [place] [address] documented in this encounter Visit Diagnoses Diagnosis Central perforation of tympanic membrane of right ear- Primary documented in this encounter Additional Health Concerns Infection Onset Date Last Indicated Resolved Time CoV-Risk 12/21/2021 12/21/2021 01/01/2022 1:22 AM EDT documented as of this encounter Care Teams Warp Knitter Helper Relationship Specialty Start Date End Date Jacquelyn Chandler MD [address] [place] [address] [email or web address] PCP - General Internal Medicine 12/01/17 01/28/23 Jessy Andersen FNP [address] [place] [phone] PCP - General Nurse Practitioner 01/29/23 documented as of this encounter Additional Source Comments The information contained in this document represents components of the legal health record. It is not the complete legal health record.[facility]
--- OUTSIDE RECORDS SUMMARY | 2024-11-22 15:27 | XMS_ITS | Encounter Summary ---
Author Organization [facility] Address [address] [place] [address] Phone Care Team Providers Care Hydroelectric Station Chief Name Role Phone Jacquelyn Chandler MD Primary Care Provider [phone] [facility] Primary Care Provide r Encounter Details Date Type Department Care Team (Latest Contact Info) Description 03/08/2019 Transcribe Orders [facility] [address] [place] [address] Jacquelyn Chandler MD [address] [place] [address] [email or web address] Hyperlipidemia, unspecified hyperlipidemia type (Primary Dx) Social [...] 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 Not on file documented as of this encounter Plan of Treatment Upcoming Encounters Date Type Department Care Team (Late st Contact Info) Description 09/28/2024 Procedure Pass [address] [place] [address] 11/28/2024 11:30 AM EDT Office Visit [facility] Rehabilitation Services [address] [place] [address] Brooke Pressley MD [address] [place] [address] Kim Braun, PT [address] [place] [address] 05/10/2025 9:15 AM EDT Appointment [address] [place] [address] Jessy Andersen, COLORING ROOM MAN [address] [place] [address] documented as of this encounter Results * (ABNORMAL) Lipid panel (03/08/2019 8:09 AM EST) HDL 44 mg/dL [facility] Comment: Interpretation <40 mg/dL: Low HDL cholesterol (major risk factor for CHD) Greater than or equal to 60 mg/dL: High HDL cholesterol ( negative risk factor for CHD) HDL - cholesterol is affected by a number of factors, e.g. smoking, excerise, hormones, sex and age. CHOLESTEROL 205 0 - 240 mg/dL [facility] TRIGLYCERIDES 220(H) 30 - 160 mg/dL [facility] LDL 117 50 - 129 mg/dL [facility] Comment: LDL levels in terms of risk for coronary heart disease: <100 mg/dL: Optimal 100-129 mg/dL: Near or above optimal 130-159 mg/dL: Borderline high 160-189 mg/dL: High >190 mg/dL: Very High CARDIAC RISK RATIO 4.7(H) 3.3 - 4.4 C [facility] Blood 03/08/2019 8:09 AM EST 03/08/2019 8:15 AM EST us Jacquelyn Chandler MD LAB BLOOD ORDERABLES Final R esult [facility] [address] [place] [address] documented in this encounter Visit Diagnoses Diagnosis Hyperlipidemia, unspecified hyperlipidemia type- Primary documented in this encounter Additional Health Concerns Infection Onset Date Last Indicated Resolved Time CoV-Risk 12/21/2021 12/21/2021 01/01/2022 1:22 AM EDT documented as of this encounter Care Teams Hydroelectric Station Chief Relationship Specialty Start Date End Date Jacquelyn Chandler MD [address] [place] [phone] [email or web address] PCP - General Internal Medicine 12/01/17 01/28/23 Jessy Andersen FNP [address] [place] [phone] PCP - General Nurse Practitioner 01/29/23 documented as of this encounter Additional Source Comments The information contained in this document represents components of the legal health record. It is not the complete legal health record.[facility]
--- OUTSIDE RECORDS SUMMARY | 2024-11-22 15:27 | XMS_ITS | Encounter Summary ---
Author Organization [facility] Address [address] [place] [address] [place] [address] Phone Care Team Providers Care Mail Machine Operator Name Role Phone Jacquelyn Chandler MD Primary Care Provider [phone] [facility] Primary Care Provide r Encounter Details Date Type Department Care Team (Latest Contact Info) Description 10/04/2018 Transcribe Orders [facility] [address] 2nd [place] [address] Seth Jeter MD [address] [address] [email or web address] Malabsorption due to intolerance, not elsewhere classified [...] 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 Not on file documented as of this encounter Plan of Treatment Upcoming Encounters Date Type Department Care Team (Late st Contact Info) Description 09/28/2024 Procedure Pass [address] [place] [address] 11/28/2024 11:30 AM EDT Office Visit [facility] Services [address] [place] [address] Brooke Pressley MD [address] [facility] [address] [place] [address] Kim Braun, PT 380 [place] [address] 05/10/2025 9:15 AM EDT Appointment [address] [place] [address] Jessy Andersen FNP 73 [place] [address] documented as of this encounter Results * C-Reactive Protein (10/04/2018 1:59 PM EDT) Pathologist [facility] C REACTIVE PROTEIN 3.2 0.0 - 4.0 mg/L [facility] Blood 10/04/2018 1:59 PM EDT 10/04/2018 2:04 PM EDT us Seth Jeter MD LAB BLOOD ORDERABLES Final R esult [facility] [address] [place] [address] * CBC (10/04/2018 1:59 PM EDT) Pathologist [facility] WBC 6.90 3.40 - 11.20 K/uL [facility] RBC 4.70 3.80 - 4.80 M/uL [facility] HGB 13.1 12.0 - 15.0 g/dL [facility] HCT 39.7 36.0 - 46.0 % [facility] PLT 261 130 - 400 K/uL [facility] MCV 84.5 79.0 - 98.0 fL [facility] MCH 27.9 27.0 - 34.8 pg [facility] MCHC 33.0 31.5 - 36.0 g/dL [facility] RDW 13.1 10.8 - 14.6 % [facility] MPV 11.4 9.4 - 12.4 fl [facility] NRBC 0.00 0.00 /100 WBCs [facility] ABSOLUTE NRBC 0.00 0.00 K/uL [facility] Blood 10/04/2018 1:59 PM EDT 10/04/2018 2:04 PM EDT us Seth Jeter MD LAB BLOOD ORDERABLES Final R esult Performing Organization Address City/[facility]/ZIP Co de Phone Number [facility] [address] [place] [address] * Tissue transglutaminase IgA (10/04/2018 1:59 PM EDT) TTG IGA ANTIBODY <1.2 <4.0 (Negative) U/mL [facility] Blood 10/04/2018 1:59 PM EDT 10/04/2018 2:03 PM EDT us Seth Jeter MD LAB BLOOD ORDERABLES Final R esult Performing Organization Address City/[facility]/ZIP Co de Phone Number [facility] [address] [place] [address] documented in this encounter Visit Diagnoses Diagnosis Malabsorption due to intolerance, not elsewhere classified- Primary Gastroesophageal reflux disease without esophagitis Esophageal reflux documented in this encounter Additional Health Concerns Infection Onset Date Last Indicated Resolved Time CoV-Risk 12/21/2021 12/21/2021 01/01/2022 1:22 AM EDT documented as of this encounter Care Teams Mail Machine Operator Relationship Specialty Start Date End Date Jacquelyn Chandler MD [address] [place] [address] 1 [place] [address] [email or web address] PCP - General Internal Medicine 12/01/17 01/28/23 Jessy Andersen FNP [address] [place] [address] PCP - General Nurse Practitioner 01/29/23 documented as of this encounter Additional Source Comments The information contained in this document represents components of the legal health record. It is not the complete legal health record.[facility]
--- OUTSIDE RECORDS SUMMARY | 2024-11-22 15:27 | XMS_ITS | Encounter Summary ---
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 [address] [place] [address] Kim Braun, PT 380 [place] [address] 05/10/2025 9:15 AM EDT Appointment [address] [place] [address] Jessy Andersen, PLASTIC SURGERY TECHNICIAN 73 [place] [address] documented as of this encounter Results * [...] documented as of this encounter Care Teams Stock Mixer Relationship Specialty Start Date End Date Jacquelyn Chandler MD [address] [place] [address] PCP - General Internal Medicine 12/01/17 01/28/23 Jessy Andersen FNP [address] [place] [address] PCP - General Nurse Practitioner 01/29/23 documented as of this encounter Additional Source Comments The information contained in this document represents components of the legal health record. It is not the complete legal health record.[facility]
--- OUTSIDE RECORDS SUMMARY | 2024-11-22 15:27 | XMS_ITS | Encounter Summary ---
Author Organization [facility] Address [address] [place] [address] Phone Care Team Providers Care Special Education Resource Teacher Name Role Phone Jacquelyn Chandler MD Primary Care Provider [facility] [place] Tyra [facility] Primary Care Provide r Encounter Details Date Type Department Care Team (Latest Contact Info) Description 09/12/2019 Transcribe Orders [facility] [address] [place] [address] [place] [address] Seth Jeter MD [address] [place] [address] [email or web address] Abdominal pain, RLQ (Primary Dx) Social History [...] 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 file documented as of this encounter Plan of Treatment Upcoming Encounters Date Type Department Care Team (Late st Contact Info) Description 09/28/2024 Procedure Pass [address] [place] [address] 11/28/2024 11:30 AM EDT Office Visit [facility] Rehabilitation Services [address] [place] [address] Brooke Pressley MD [address] [facility] [address] [place] [address] Kim Braun, PT 380 [place] [address] 05/10/2025 9:15 AM EDT Appointment [address] [place] [address] Jessy Andersen, CULINARY INTERNSHIP 73 [place] [address] documented as of this encounter Results * (ABNORMAL) Creatinine/eGFR (09/12/2019 2:54 PM EDT) CREATININE 1.10 0.5 - 1.5 mg/dL [facility] EGFR 54(L) >59 mL/min/1.7 3m2 [facility] Comment:Estimated glomerular filtration rate calculated using the CKD-EPI equation. Blood 09/12/2019 2:54 PM EDT 09/12/2019 2:56 PM EDT us Seth Jeter MD LAB BLOOD ORDERABLES Final R esult [facility] [address] [place] [address] * BUN (09/12/2019 2:54 PM EDT) BUN 17 6 - 19 mg/dL [facility] Blood 09/12/2019 2:54 PM EDT 09/12/2019 2:56 PM EDT us Seth Jeter MD LAB BLOOD ORDERABLES Final R esult [facility] [address] [place] [address] documented in this encounter Visit Diagnoses Diagnosis Abdominal pain, RLQ- Primary documented in this encounter Additional Health Concerns Infection Onset Date Last Indicated Resolved Time CoV-Risk 12/21/2021 12/21/2021 01/01/2022 1:22 AM EDT documented as of this encounter Care Teams Special Education Resource Teacher Relationship Specialty Start Date End Date Jacquelyn Chandler MD [address] [place] [address] [email or web address] PCP - General Internal Medicine 12/01/17 01/28/23 Jessy Andersen FNP [address] [place] [address] PCP - General Nurse Practitioner 01/29/23 documented as of this encounter Additional Source Comments The information contained in this document represents components of the legal health record. It is not the complete legal health record.[facility]
--- OUTSIDE RECORDS SUMMARY | 2024-11-22 15:27 | XMS_ITS | Encounter Summary ---
Author Organization [employer] Address [address] [facility] 7t [place] [address] Care Team Providers Care Shank Taper Name Role Phone [facility] Primary Care Provider [phone] Encounter Details Date Type Department Care Team (Late st Contact Info) Description 09/01/2024 Orders Only [facility] [address] [place] [address] Jessy Andersen, [facility] [address] [place] [address] Social History Tobacco Use Types Packs/Day Years [...] Description 12/22/2024 11:40 AM EDT Office Visit [facility] [address] [place] [address] [place], [place] [facility] [address] [place] [address] documented as of this encounter Procedures Procedure Name Priority Date/Time Associated Diagnosis Comments COMPREHENSIVE METABOLIC PANEL Routine 08/29/2024 11:29 AM EDT documented in this encounter Results * Comprehensive Metabolic Panel (08/29/2024 11:29 AM EDT) Blood Venous blood specimen / Unknown [facility] LAB BLOOD ORDERABLES Ana l Result documented in this encounter Visit Diagnoses Not on filedocumented in this encounter Care Teams Shank Taper Relationship Specialty Start Date End Date Jessy Andersen FNP 70 [place] [address] PCP - General Family Medicine 10/01/22 documented as of this encounter
--- OUTSIDE RECORDS SUMMARY | 2024-11-22 15:27 | XMS_ITS | Encounter Summary ---
Author Organization [facility] Address [address] [place] [phone] Phone Care Team Providers Care Arborist Representative Name Role Phone Jacquelyn Chandler MD Primary Care Provider [facility] Primary Care Provide r Reason for Referral * MRI/CAT Scan - Closed Specialty Diagnoses / Procedures Referred By Gabriele canales Referred To Contact Radiology Diagnoses Abnormal findings on diagnostic imaging of liver and biliary tract RLQ abdominal pain Procedures CT Abdomen/Pelvis Seth Jeter MD Phone: tel: fax: [email or web address] Referral ID Status Reason Start Date Expiration Date Visits Re quested Visits Authorized [id number] Closed 09/28/2019 01/18/2020 1 1 Encounter Details Date Type Department Care Team (Latest Contact Info) Description 09/28/2019 Transcribe Orders Virtual Department 30 [place] [address] Seth Jeter MD [address] [place] [address] Abnormal findings on diagnostic imaging of liver [...] Contact Info) Description 09/28/2024 Procedure Pass [address] [place] [address] 11/28/2024 11:30 AM EDT Office Visit [facility] Rehabilitation Services [address] [place] [address] Brooke Pressley MD 299 [facility] [address] [place] [address] Kim Braun, PT 380 [place] [address] 05/10/2025 9:15 AM EDT Appointment [address] [place] [address] Jessy Andersen FNP 73 [place] [address] documented as of this encounter Results * [...] lobe AVM. 3.Additional stable findings as above. Seth Jeter MD IMG CT ABD/PELVIS Final [...] documented as of this encounter Care Teams Arborist Representative Relationship Specialty Start Date End Date Jacquelyn Chandler MD [address] [place] [phone] PCP - General Internal Medicine 12/01/17 01/28/23 Jessy Andersen FNP [address] [place] [address] PCP - General Nurse Practitioner 01/29/23 documented as of this encounter Additional Source Comments The information contained in this document represents components of the legal health record. It is not the complete legal health record.[facility]
--- OUTSIDE RECORDS SUMMARY | 2024-11-22 15:28 | XMS_ITS | Encounter Summary ---
Author Organization [facility] Address [address] [place] [address] [place] [address] Phone Care Team Providers Care Flooring Sales Manager Name Role Phone Jacquelyn Chandler MD Primary Care Provider [facility] Primary Care Provide r Encounter Details Date Type Department Care Team (Latest Contact Info) Description 10/09/2020 Transcribe Orders [facility] [address] [place] [address] Jacquelyn Chandler MD 25 [place] [address] [email or web address] Vitamin D deficiency, unspecified (Primary Dx); Hyperlipidemia, [...] st Contact Info) Description 09/28/2024 Procedure Pass [address] [place] [address] 11/28/2024 11:30 AM EDT Office Visit [facility] [address] [place] [address] Brooke Pressley MD 299 [facility] [address] [place] [address] Kim Braun, PT 380 [place] [address] 05/10/2025 9:15 AM EDT Appointment [address] [place] [address] Jessy Andersen, BYPRODUCTS MAKER [address] [place] [address] documented as of this encounter Results * (ABNORMAL) Lipid panel (10/09/2020 10:28 AM EDT) HDL 49 mg/dL [facility] Comment: Interpretation <40 mg/dL: Low HDL cholesterol (major risk factor for CHD) Greater than or equal to 60 mg/dL: High HDL cholesterol ( negative risk factor for CHD) HDL - cholesterol is affected by a number of factors, e.g. smoking, excerise, hormones, sex and age. CHOLESTEROL 182 0 - 240 mg/dL [facility] TRIGLYCERIDES 164(H) 30 - 160 mg/dL [facility] LDL 100 50 - 129 mg/dL [facility] Comment: LDL levels in terms of risk for coronary heart disease: <100 mg/dL: Optimal 100-129 mg/dL: Near or above optimal 130-159 mg/dL: Borderline high 160-189 mg/dL: High >190 mg/dL: Very High CARDIAC RISK RATIO 3.7 3.3 - 4.4 C [facility] Blood 10/09/2020 10:2 8 AM EDT 10/09/2020 10:32 AM EDT us Jacquelyn Chandler MD LAB BLOOD ORDERABLES Final R esult Performing Organization Address City/[facility]/ZIP Co de Phone Number [address] [address] * (ABNORMAL) 25-OH vitamin D (10/09/2020 10:28 AM EDT) 25 [place] VIT D (TOTAL) 28(L) 30 - 60 ng/mL [facility] Blood 10/09/2020 10:2 8 AM EDT 10/09/2020 10:32 AM EDT Jacquelyn Chandler MD LAB BLOOD ORDERABLES Final R esult Performing Organization Address [facility]/ZIP Co de Phone Number [address] [address] documented in this encounter Visit Diagnoses Diagnosis Vitamin D deficiency, unspecified- Primary Hyperlipidemia, unspecified hyperlipidemia type documented in this encounter Additional Health Concerns Infection Onset Date Last Indicated Resolved Time CoV-Risk 12/21/2021 12/21/2021 01/01/2022 1:22 AM EDT documented as of this encounter Care Teams Flooring Sales Manager Relationship Specialty Start Date End Date Jacquelyn Chandler MD [address] [place] [address] [email or web address] PCP - General Internal Medicine 12/01/17 01/28/23 [facility] [address] [place] [address] PCP - General Nurse Practitioner 01/29/23 documented as of this encounter Additional Source Comments The information contained in this document represents components of the legal health record. It is not the complete legal health record.[facility]
--- OUTSIDE RECORDS SUMMARY | 2024-11-22 15:28 | XMS_ITS | Encounter Summary ---
Author Organization [facility] Address [address] [place] [address] Phone Care Team Providers Care Dust Brush Assembler Name Role Phone Jacquelyn Chandler MD Primary Care Provider [facility] Jessy Tyra [facility] Primary Care Provide r Encounter Details Date Type Department Care Team (Late st Contact Info) Description 09/17/2020 Procedure Pass [address] [place] [address] Social History Tobacco Use Types Packs/Day Years [...] Contact Info) Description 09/28/2024 Procedure Pass [address] [place] [address] 11/28/2024 11:30 AM EDT Office Visit [facility] Rehabilitation Services 380 [place] [address] Brooke Pressley MD 299 [facility] [address] [place] [address] Kim Braun, PT 380 [place] [address] 05/10/2025 9:15 AM EDT Appointment [address] [place] [address] Jessy Andersen FNP 73 [facility] [place] [address] documented as of this encounter Visit Diagnoses Not on filedocumented in this encounter Additional Health Concerns Infection Onset Date Last Indicated Resolved Time CoV-Risk 12/21/2021 12/21/2021 01/01/2022 1:22 AM EDT documented as of this encounter Care Teams Dust Brush Assembler Relationship Specialty Start Date End Date Jacquelyn Chandler MD [address] [place] [phone] [email or web address] PCP - General Internal Medicine 12/01/17 01/28/23 Jessy Andersen FNP [address] [place] [address] PCP - General Nurse Practitioner 01/29/23 documented as of this encounter Additional Source Comments The information contained in this document represents components of the legal health record. It is not the complete legal health record.[facility]
--- OUTSIDE RECORDS SUMMARY | 2024-11-22 15:28 | XMS_ITS | Encounter Summary ---
Author Organization [facility] Address [address] [place] [address] Phone Care Team Providers Care Mobile Developer Name Role Phone Jacquelyn Chandler MD Primary Care Provider [facility] [place] Tyra [facility] Primary Care Provide r Encounter Details Date Type Department Care Team (Late st Contact Info) Description 04/02/2021 Transcribe Orders [facility] [address] [place] [address] Jacquelyn Chandler MD 25 [place] [address] [email or web address] Vitamin D deficiency, [...] Contact Info) Description 09/28/2024 Procedure Pass [address] [place] [address] 11/28/2024 11:30 AM EDT Office Visit [facility] Rehabilitation Services [address] [place] [address] Brooke Pressley MD 299 [facility] [address] [place] [address] Kim Braun, PT 380 [place] [address] 05/10/2025 9:15 AM EDT Appointment [address] [place] [address] Jessy Andersen, SERVICENOW ADMINISTRATOR DEVELOPER 73 [place] [address] documented as of this encounter Results * ABO and Rh (04/02/2021 9:42 AM EST) ABO/Rh A Positive [facility] Resulting Agency [facility] Blood 04/02/2021 9:42 AM EST 04/02/2021 9:45 AM EST Jacquelyn Chandler MD BLOOD BANK TEST ORDERABLES F inal Result Performing Organization Address City/[facility]/ZIP Co de Phone Number [facility] 30 [place] [address] * (ABNORMAL) 25-OH vitamin D (04/02/2021 9:42 AM EST) 25 OH VIT D (TOTAL) 24(L) 30 - 60 ng/mL [facility] Blood 04/02/2021 9:42 AM EST 04/02/2021 9:45 AM EST Jacquelyn Chandler MD LAB BLOOD ORDERABLES Final R esult [facility] 30 [place] [address] documented in this encounter Visit Diagnoses Diagnosis Vitamin D deficiency, unspecified- Primary Encounter for blood typing documented in this encounter Additional Health Concerns Infection Onset Date Last Indicated Resolved Time CoV-Risk 12/21/2021 12/21/2021 01/01/2022 1:22 AM EDT documented as of this encounter Care Teams Mobile Developer Relationship Specialty Start Date End Date Jacquelyn Chandler MD [address] [place] [address] [email or web address] PCP - General Internal Medicine 12/01/17 01/28/23 Jessy Andersen FNP [address] [place] [address] PCP - General Nurse Practitioner 01/29/23 documented as of this encounter Additional Source Comments The information contained in this document represents components of the legal health record. It is not the complete legal health record.[facility]
--- OUTSIDE RECORDS SUMMARY | 2024-11-22 15:28 | XMS_ITS | Encounter Summary ---
Author Organization [facility] Address [address] [place] [address] Phone Care Team Providers Care Human Resource Management Instructor Name Role Phone Jacquelyn Chandler MD Primary Care Provider [facility] Primary Care Provide r Reason for Referral * Consultation (Elective) - Closed Specialty Diagnoses / Procedures Referred By Gabriele canales Referred To Contact Pulmonary Disease Jacquelyn Chandler MD Phone: tel: [email or web address] [facility] 30 [place] [address] Phone: tel: Referral ID Status Reason Start Date Expiration Date Visits Re quested Visits Authorized [id number] Closed 06/21/2020 06/21/2021 1 1 Encounter Details Date Type Department Care Team (Late st Contact Info) Description 06/21/2020 Transcribe Orders CD Pulmonary, Allergy and Critical Care Medicine 10 [place] [address] Jacquelyn Chandler MD 25 [place] [address] Social History Tobacco Use Types Packs/Day Years [...] Contact Info) Description 09/28/2024 Procedure Pass [address] [place] [address] 11/28/2024 11:30 AM EDT Office Visit [facility] Rehabilitation Services [address] [place] [address] Brooke Pressley MD [address] [place] [address] [address] [place] [address] Kim Braun, PT 380 [place] [address] 05/10/2025 9:15 AM EDT Appointment [address] [place] [address] Jessy Andersen, GEOVANNA [address] [place] [address] Scheduled Referrals Name Type Priority Associated Diagnoses Order Schedule Ambulatory referral to [facility] Pulmonology Outpatient Referral Routine Ordered: 06/21/2020 documented as of this encounter Visit Diagnoses Not on filedocumented in this encounter Additional Health Concerns Infection Onset Date Last Indicated Resolved Time CoV-Risk 12/21/2021 12/21/2021 01/01/2022 1:22 AM EDT documented as of this encounter Care Teams Human Resource Management Instructor Relationship Specialty Start Date End Date Jacquelyn Chandler MD [address] [place] [address] 1 [place] [address] [email or web address] PCP - General Internal Medicine 12/01/17 01/28/23 Jessy Andersen FNP [address] [place] [address] PCP - General Nurse Practitioner 01/29/23 documented as of this encounter Additional Source Comments The information contained in this document represents components of the legal health record. It is not the complete legal health record.[facility]
--- OUTSIDE RECORDS SUMMARY | 2024-11-22 15:28 | XMS_ITS | Encounter Summary ---
Author Organization [facility] Address [address] [facility] [address] [place] [address] Phone Care Team Providers Care Physicist Astrophysics Name Role Phone Jacquelyn Chandler MD Primary Care Provider [facility] Jessy Tyra [facility] Primary Care Provide r Encounter Details Date Type Department Care Team (Latest Contact Info) Description 11/15/2020 Transcribe Orders Virtual Department 30 [place] [address] Seth Jeter MD [address] [place] [address] [email or web address] Encounter for laboratory testing for COVID-19 virus [...] st Contact Info) Description 09/28/2024 Procedure Pass [address] [place] [address] 11/28/2024 11:30 AM EDT Office Visit [facility] 380 [place] [address] Brooke Pressley MD [address] [facility] [address] [place] [address] Kim Braun, PT 380 [place] [address] 05/10/2025 9:15 AM EDT Appointment [address] [place] [address] Jessy Andersen FNP 73 [place] [address] documented as of this encounter Results * COVID-19 PCR Order (11/19/2020 10:06 AM EDT) COVID-19 Comment [id number] [facility] COVID Testing Status Sent to [facility] Micro Lab [facility] Other 11/19/2020 10:0 6 AM EDT 11/19/2020 5:03 PM EDT us Seth Jeter MD BODY FLUIDS AND STOOLS ORDER GABBI Final Result [facility] 30 [place] [address] documented in this encounter Visit Diagnoses Diagnosis Encounter for laboratory testing for COVID-19 virus- Primary documented in this encounter Additional Health Concerns Infection Onset Date Last Indicated Resolved Time CoV-Risk 12/21/2021 12/21/2021 01/01/2022 1:22 AM EDT documented as of this encounter Care Teams Physicist Astrophysics Relationship Specialty Start Date End Date Jacquelyn Chandler MD [address] [place] [address] [email or web address] PCP - General Internal Medicine 12/01/17 01/28/23 Jessy Andersen FNP [address] [place] [phone] PCP - General Nurse Practitioner 01/29/23 documented as of this encounter Additional Source Comments The information contained in this document represents components of the legal health record. It is not the complete legal health record.[facility]
--- OUTSIDE RECORDS SUMMARY | 2024-11-22 15:28 | XMS_ITS | Encounter Summary ---
Author Organization [facility] Address [address] [place] [address] Phone Care Team Providers Care Volunteer Assistant Name Role Phone Jacquelyn Chandler MD Primary Care Provider [facility] Primary Care Provide r Encounter Details Date Type Department Care Team (Latest Contact Info) Description 06/18/2020 Transcribe Orders [address] [place] [address] Jacquelyn Chandler MD 25 [place] [address] [email or web address] Screening examination for pulmonary tuberculosis (Primary Dx); [...] Encounters Date Type Department Care Team ( st Contact Info) Description 09/28/2024 Procedure Pass [address] [place] [address] 11/28/2024 11:30 AM EDT Office Visit [facility] [address] [facility] [place] [address] Brooke Pressley MD 299 [facility] [address] [place] [address] Kim Braun, PT 380 [place] [address] [email or web address] 05/10/2025 9:15 AM EDT Appointment [address] [place] [address] Jessy Andersen, CLOTH SECONDS SORTER 73 [place] [address] documented as of this encounter Results * T spot TB test (06/18/2020 8:42 AM EDT) [facility] T[facility]SPOT.TB Negative [facility] Comment: (NOTE) Normal Value: [...] Spot Count Corrected For Neg Control 0 [facility] Panel B Spot Count Corrected For Neg Control 0 [facility] Negative Control Passed [facility] Positive Control Passed [facility] Blood 06/18/2020 8:42 AM EDT 06/18/2020 8:47 AM EDT Jacquelyn Chandler MD LAB BLOOD ORDERABLES Final R esult [employer] [address] [place] [phone], [facility] [phone] * (ABNORMAL) 25-OH vitamin D (06/18/2020 8:42 AM EDT) 25 OH VIT D (TOTAL) 26(L) 30 - 60 ng/mL [facility] Blood 06/18/2020 8:42 AM EDT 06/18/2020 8:47 AM EDT Jacquelyn Chandler MD LAB BLOOD ORDERABLES Final R esult [address] [address] * Lipid panel (06/18/2020 8:42 AM EDT) HDL 50 mg/dL [facility] Comment: Interpretation <40 mg/dL: Low HDL cholesterol (major risk factor for CHD) Greater than or equal to 60 mg/dL: High HDL cholesterol ( negative risk factor for CHD) HDL - cholesterol is affected by a number of factors, e.g. smoking, excerise, hormones, sex and age. CHOLESTEROL 202 0 - 240 mg/dL [facility] TRIGLYCERIDES 118 30 - 160 mg/dL [facility] LDL 128 50 - 129 mg/dL [facility] Comment: LDL levels in terms of risk for coronary heart disease: <100 mg/dL: Optimal 100-129 mg/dL: Near or above optimal 130-159 mg/dL: Borderline high 160-189 mg/dL: High >190 mg/dL: Very High CARDIAC RISK RATIO 4.0 3.3 - 4.4 C [facility] Blood 06/18/2020 8:42 AM EDT 06/18/2020 8:47 AM EDT us Jacquelyn Chandler MD LAB BLOOD ORDERABLES Final R esult Performing Organization Address City/[facility]/ZIP Co de Phone Number [address] [address] * CPK (creatine kinase) (06/18/2020 8:42 AM EDT) CREATINE KINASE 48 21 - 215 U/L [facility] Blood 06/18/2020 8:42 AM EDT 06/18/2020 8:47 AM EDT us Jacquelyn Chandler MD LAB BLOOD ORDERABLES Final R esult Performing Organization Address [facility] Co de Phone Number [address] [address] * Aspartate aminotransferase (AST) (06/18/2020 8:42 AM EDT) AST 26 0 - 37 U/L [facility] Blood 06/18/2020 8:42 AM EDT 06/18/2020 8:47 AM EDT us Jacquelyn Chandler MD LAB BLOOD ORDERABLES Final R esult Performing Organization Address [facility] Co de Phone Number [address] [address] * Alanine aminotransferase (ALT) (06/18/2020 8:42 AM EDT) ALT 25 0 - 40 U/L [facility] Blood 06/18/2020 8:42 AM EDT 06/18/2020 8:47 AM EDT us Jacquelyn Chandler MD LAB BLOOD ORDERABLES Final R esult Performing Organization Address [facility]/ZIP Co de Phone Number [address] [address] documented in this encounter Visit Diagnoses Diagnosis Screening examination for pulmonary tuberculosis- Primary Hyperlipidemia, unspecified hyperlipidemia type Vitamin D deficiency, unspecified documented in this encounter Additional Health Concerns Infection Onset Date Last Indicated Resolved Time CoV-Risk 12/21/2021 12/21/2021 01/01/2022 1:22 AM EDT documented as of this encounter Care Teams Volunteer Assistant Relationship Specialty Start Date End Date Jacquelyn Chandler MD [address] [place] [address] [email or web address] PCP - General Internal Medicine 12/01/17 01/28/23 Jessy Andersen FNP [address] [place] [address] PCP - General Nurse Practitioner 01/29/23 documented as of this encounter Additional Source Comments The information contained in this document represents components of the legal health record. It is not the complete legal health record.[facility]
--- OUTSIDE RECORDS SUMMARY | 2024-11-22 15:28 | XMS_ITS | Encounter Summary ---
Author Organization [facility] Address [address] [place] [address] Phone Care Team Providers Care Per Diem Physical Therapist Name Role Phone Jacquelyn Chandler MD Primary Care Provider [facility] Jessy Tyra [facility] Primary Care Provide r Encounter Details Date Type Department Care Team (Late st Contact Info) Description 09/12/2020 Procedure Pass [facility] Echo Lab 30 [place] [address] Social History Tobacco Use Types Packs/Day Years [...] Contact Info) Description 09/28/2024 Procedure Pass [address] [place] [address] 11/28/2024 11:30 AM EDT Office Visit [facility] [address] [place] [address] Brooke Pressley MD 299 [facility] [address] [place] [address] Kim Braun, PT 380 [place] [address] 05/10/2025 9:15 AM EDT Appointment [facility] - [address] [place] [address] Jessy Andersen FNP 73 [place] [address] documented as of this encounter Visit Diagnoses Not on filedocumented in this encounter Additional Health Concerns Infection Onset Date Last Indicated Resolved Time CoV-Risk 12/21/2021 12/21/2021 01/01/2022 1:22 AM EDT documented as of this encounter Care Teams Per Diem Physical Therapist Relationship Specialty Start Date End Date Jacquelyn Chandler MD [address] [place] [address] PCP - General Internal Medicine 12/01/17 01/28/23 Jessy Andersen FNP [address] [place] [address] PCP - General Nurse Practitioner 01/29/23 documented as of this encounter Additional Source Comments The information contained in this document represents components of the legal health record. It is not the complete legal health record.[facility]
--- OUTSIDE RECORDS SUMMARY | 2024-11-22 15:28 | XMS_ITS | Encounter Summary ---
Author Organization [facility] Address [address] [place] [address] Phone Care Team Providers Care Respiratory Physician Name Role Phone Jessy Andersen GAS ENGINE OPERATOR GENERAT[employer] Primary Care Provide r Encounter Details Date Type Department Care Team (Late st Contact Info) Description 09/22/2024 Transcribe Orders Virtual Department 30 [place] [address] Jessy Andersen FNP 73 [place] [address] Nausea and vomiting, unspecified vomiting type (Primary [...] Contact Info) Description 09/28/2024 Procedure Pass [address] [place] [address] 11/28/2024 11:30 AM EDT Office Visit [facility] 380 [place] [address] Brooke Pressley MD [address] [place] [address] [address] [place] [address] Kim Braun, PT 380 [place] [address] 05/10/2025 9:15 AM EDT Appointment [address] [place] [address] Jessy Andersen FNP 73 [facility] [place] [address] documented as of this encounter Results * [...] clinician's provided indication for this examination in [facility]: Outside Radiology Order; Nausea/vomiting; EPIGASTRIC PAIN [...] clinician's provided indication for this examination in [facility]:Outside Radiology Order; Nausea/vomiting; EPIGASTRIC PAIN TECHNIQUE: [...] hydronephrosis. No sonographically evident renal calculi. Jessy [facility] Final Result documented in this encounter Visit Diagnoses Diagnosis Nausea and vomiting, unspecified vomiting type- Primary Nausea and vomiting, unspecified vomiting type documented in this encounter Additional Health Concerns Assessment Noted Time PHQ-2 Depression Total Score: 0 09/02/19 23 10:16 AM EDT documented as of this encounter Care Teams Respiratory Physician Relationship Specialty Start Date End Date Jessy Andersen FNP PCP - General Nurse Practitioner 01/29/23 documented as of this encounter Additional Source Comments The information contained in this document represents components of the legal health record. It is not the complete legal health record.[facility]
--- OUTSIDE RECORDS SUMMARY | 2024-11-22 15:28 | XMS_ITS | Encounter Summary ---
Author Organization [facility] Address [address] [place] [address] Phone Care Team Providers Care Trucking Contractor Name Role Phone Jacquelyn Chandler MD [facility] Primary Care Provide r Encounter Details Date Type Department Care Team (Late st Contact Info) Description 09/01/2022 Procedure Pass [address] [place] [address] Social History Tobacco Use Types Packs/Day Years [...] Upcoming Encounters Date Type Department Care Team ([facility] st Contact Info) Description 09/28/2024 Procedure Pass [address] [place] [address] 11/28/2024 11:30 AM EDT Office Visit [facility] Rehabilitation Services 380 [place] [address] Brooke Pressley MD 299 [facility] 119 [place] [address] Kim Braun, PT 380 [place] [address] 05/10/2025 9:15 AM EDT Appointment [address] [place] [address] Jessy Andersen FNP 73 [place] [address] documented as of this encounter Visit Diagnoses Not on filedocumented in this encounter Additional Health Concerns Assessment Noted Time PHQ-2 Depression Total Score: 0 09/02/19 23 10:16 AM EDT documented as of this encounter Care Teams Trucking Contractor Relationship Specialty Start Date End Date Jacquelyn Chandler MD [address] [place] [address] 1 [place] [address] [email or web address] PCP - General Internal Medicine 12/01/17 01/28/23 Jessy Andersen FNP [address] [place] [address] PCP - General Nurse Practitioner 01/29/23 documented as of this encounter Additional Source Comments The information contained in this document represents components of the legal health record. It is not the complete legal health record.[facility]
--- OUTSIDE RECORDS SUMMARY | 2024-11-22 15:28 | XMS_ITS | Encounter Summary ---
Author Organization [facility] Address [address] [place] [address] [place] [address] Phone Care Team Providers Care Flute Grinder Name Role Phone Jacquelyn Chandler MD Primary Care Provider [facility] Tyra [facility] Primary Care Provide r Encounter Details Date Type Department Care Team (Latest Contact Info) Description 11/06/2020 Transcribe Orders [address] [place] [address] Nat Tam PA [address] [place] [address] Gastroesophageal reflux disease with esophagitis, unspecified whether [...] st Contact Info) Description 09/28/2024 Procedure Pass [address] [place] [address] 11/28/2024 11:30 AM EDT Office Visit [facility] Rehabilitation Services [address] [place] [address] Brooke Pressley MD 299 [facility] [address] [place] [address] Kim Braun, PT 380 [place] [address] 05/10/2025 9:15 AM EDT Appointment [address] [place] [address] Jessy Andersen, DICTATING MACHINE TRANSCRIBER 73 [place] [address] documented as of this encounter Results * CBC and differential (11/06/2020 10:12 AM EDT) WBC 5.70 4.00 - 11.00 K/uL [facility] RBC 4.52 3.72 - 5.30 M/uL [facility] HGB 12.7 11.4 - 15.9 g/dL [facility] HCT 38.2 34.2 - 46.8 % [facility] PLT 268 140 - 430 K/uL [facility] MCV 84.5 78.0 - 97.0 fL [facility] MCH 28.1 25.0 - 33.0 pg [facility] MCHC 33.2 32.0 - 36.0 g/dL [facility] RDW 13.2 11.0 - 16.0 % [facility] MPV 11.6 8.4 - 12.8 fl [facility] NRBC 0.00 0 /100 WBCs [facility] ABSOLUTE NRBC 0.00 0 K/uL [facility] DIFF METHOD Auto [facility] NEUTS 53.7 43.0 - 75.0 % [facility] LYMPHS 36.7 18.2 - 47.4 % [facility] MONOS 6.7 4.00 - 11.00 % [facility] EOS 1.6 0.0 - 8.0 % [facility] BASOS 0.9 0.0 - 2.0 % [facility] Granulocytes, immature (%) 0.4 0.0 - 0.9 % [facility] ABSOLUTE NEUTS 3.07 1.80 - 7.70 K/uL [facility] ABSOLUTE LYMPHS 2.09 1.00 - 3.10 K/uL [facility] ABSOLUTE MONOS 0.38 0.20 - 0.80 K/uL [facility] ABSOLUTE EOS 0.09 0.00 - 0.80 K/uL [facility] ABSOLUTE BASOS 0.05 0.00 - 0.09 K/uL [facility] Granulocytes, immature 0.02 0.00 - 0.05 K/uL [facility] Blood 11/06/2020 10:1 2 AM EDT 11/06/2020 10:15 AM EDT us Nat GONZALEZ LAB BLOOD ORDERABLES Final Result Performing Organization Address City/State/[facility] Co de Phone Number [address] [address] documented in this encounter Visit Diagnoses Diagnosis Gastroesophageal reflux disease with esophagitis, unspecified whether hemorrhage- Primary documented in this encounter Additional Health Concerns Infection Onset Date Last Indicated Resolved Time CoV-Risk 12/21/2021 12/21/2021 01/01/2022 1:22 AM EDT documented as of this encounter Care Teams Flute Grinder Relationship Specialty Start Date End Date Jacquelyn Chandler MD [address] [place] [address] PCP - General Internal Medicine 12/01/17 01/28/23 Jessy Andersen FNP [address] [place] [address] PCP - General Nurse Practitioner 01/29/23 documented as of this encounter Additional Source Comments The information contained in this document represents components of the legal health record. It is not the complete legal health record.[facility]
--- OUTSIDE RECORDS SUMMARY | 2024-11-22 15:28 | XMS_ITS | Encounter Summary ---
Author Organization [facility] Address [address] [place] [address] Phone Care Team Providers Care Transportation Security Officer Name Role Phone Jacquelyn Chandler MD Primary Care Provider [facility] Jessy Tyra [facility] Primary Care Provide r Encounter Details Date Type Department Care Team (Late st Contact Info) Description 08/09/2020 Ancillary Orders [facility],Outside [facility] 30 [place], [place] [id number] System, Provider Not In, [facility] [address] [address] Social History Tobacco Use Types Packs/Day Years [...] st Contact Info) Description 09/28/2024 Procedure Pass [facility] - [address] [place] [address] 11/28/2024 11:30 AM EDT Office Visit [facility] Rehabilitation Services 380 [place] [address] Brooke Pressley MD 299 [facility] [address] [place] [address] Kim Braun, PT 380 [place] [address] 05/10/2025 9:15 AM EDT Appointment [address] [place] [address] Jessy Andersen FNP 73 [place] [address] documented as of this encounter Results * [...] as of this encounter Care Teams Transportation Security Officer Relationship Specialty Start Date End Date Jacquelyn Chandler MD [address] [place] [address] 1 [place] [address] PCP - General Internal Medicine 12/01/17 01/28/23 Jessy Andersen FNP [address] [place] [address] PCP - General Nurse Practitioner 01/29/23 documented as of this encounter Additional Source Comments The information contained in this document represents components of the legal health record. It is not the complete legal health record.[facility]
--- OUTSIDE RECORDS SUMMARY | 2024-11-22 15:29 | XMS_ITS | Encounter Summary ---
Author Organization [facility] Address [address] [place] [address] Phone Care Team Providers Care Tip Tester Name Role Phone Jacquelyn Chandler MD Primary Care Provider Jessy Andersen Primary Care Provide r Encounter Details Date Type Department Care Team (Late st Contact Info) Description 08/28/2022 Procedure Pass [facility] - [address] [address] Social History Tobacco Use Types Packs/Day Years [...] 9:58 PM EDT Zarina Noriega RN * [place] Suicide Severity Rating Scale (Screener/Recent Self-Report) Question [...] st Contact Info) Description 09/28/2024 Procedure Pass [facility] - [address] [place] [address] 11/28/2024 11:30 AM EDT Office Visit [facility] Rehabilitation Services [address] [place] [address] Brooke Pressley MD 299 [facility] [address] [place] [address] Kim Braun, PT 380 [place] [address] 05/10/2025 9:15 AM EDT Appointment [place] [place] [address] Jesys Andersen FNP [address] [place] [address] documented as of this encounter Visit Diagnoses Not on filedocumented in this encounter Additional Health Concerns Assessment Noted Time PHQ-2 Depression Total Score: 0 07/30/19 22 10:09 AM EDT documented as of this encounter Care Teams Tip Tester Relationship Specialty Start Date End Date Jacquelyn Chandler MD [address] [place] [address] [place] [address] PCP - General Internal Medicine 12/01/17 01/28/23 Jessy Andersen FNP [address] [place] [address] [facility] [place] [address] PCP - General Nurse Practitioner 01/29/23 documented as of this encounter Additional Source Comments The information contained in this document represents components of the legal health record. It is not the complete legal health record.[facility]
--- OUTSIDE RECORDS SUMMARY | 2024-11-22 15:29 | XMS_ITS | Encounter Summary ---
Author Organization [facility] Address [address] [place] [address] Phone Care Team Providers Care Operating Room Manager Name Role Phone Jacquelyn Chandler MD Primary Care Provider [phone] [facility] Primary Care Provide r Reason for Referral * Outpatient Procedure - Closed Specialty Diagnoses / Procedures Referred By Gabriele canales Referred To Contact Radiology Diagnoses TIA (transient ischemic attack) Procedures Adult Echo TTE Taqueria Aj MD [address] [place] [address], [address] [place] [address] Phone: tel: fax: [email or web address] Referral ID Status Reason Start Date Expiration Date Visits Re quested Visits Authorized [id number] Closed 09/22/2022 1 1 Encounter Details Date Type Department Care Team (Latest Contact Info) Description 09/22/2022 Transcribe Orders Virtual Department 30 [place] [address] Taqueria Aj MD [address] [place] [address], [address] [place] [address] [email or web address] TIA (transient ischemic attack) [...] st Contact Info) Description 09/28/2024 Procedure Pass [facility] - [address] [place] [address] 11/28/2024 11:30 AM EDT Office Visit [facility] Rehabilitation Services 380 [place] [address] Brooke Pressley MD 299 [facility] [address] [place] [address] Kim Braun, PT 380 [place] [address] 05/10/2025 9:15 AM EDT Appointment [address] [place] [address] Jessy Andersen, RECREATIONAL FACILITIES MOTEL MANAGER [facility] [address] documented as of this encounter Results * [...] documented as of this encounter Care Teams Operating Room Manager Relationship Specialty Start Date End Date Jacquelyn Chandler MD [address] [place] [address] [email or web address] PCP - General Internal Medicine 12/01/17 01/28/23 Jessy Andersen FNP [address] [place] [address] PCP - General Nurse Practitioner 01/29/23 documented as of this encounter Additional Source Comments The information contained in this document represents components of the legal health record. It is not the complete legal health record.[facility]
--- OUTSIDE RECORDS SUMMARY | 2024-11-22 15:29 | XMS_ITS | Encounter Summary ---
Author Organization [employer] Address [address] [facility] 7t [place] [address] Care Team Providers Care Customer Experience Strategist Name Role Phone [facility] Primary Care Provider [phone] Encounter Details Date Type Department Care Team (Late st Contact Info) Description 08/12/2023 Orders Only Gerhard [facility] [address] [place] [address] [place], [place] [facility] 70 [place] [address] Rheumatoid arthritis with positive rheumatoid factor, involving unspecified site ([facility]) Social History Tobacco Use Types Packs/Day [...] 12/22/2024 11:40 AM EDT Office Visit Gerhard [facility] [address] [place] [address] [facility] 70 [place] [address] documented as of this encounter Procedures Procedure Name Priority Date/Time Associated Diagnosis Comments AMB REFERRAL TO RHEUMATOLOGY Routine 05/29/2023 Rheumatoid arthritis with positive rheumatoid factor, involving unspecified site ([facility]) documented in this encounter Results * Referral to Rheumatology (05/29/2023) [facility] OUTPATIENT REFERRAL ORDER GABBI Final Result documented in this encounter Visit Diagnoses Diagnosis Rheumatoid arthritis with positive rheumatoid factor, involving unspecified site ([facility]) documented in this encounter Care Teams Customer Experience Strategist Relationship Specialty Start Date End Date [facility] 70 [place] [address] PCP - General Family Medicine 10/01/22 documented as of this encounter
--- OUTSIDE RECORDS SUMMARY | 2024-11-22 15:29 | XMS_ITS | Encounter Summary ---
Author Organization [facility] Address [address] [address] Phone Care Team Providers Care Excel Expert Name Role Phone Jacquelyn Chanlder MD Primary Care Provider Jessy Andersen Primary Care Provide r Encounter Details Date Type Department Care Team (Late st Contact Info) Description 09/22/2022 Procedure Pass [facility] [address] [place] [address] Social History Tobacco Use Types Packs/Day Years [...] Upcoming Encounters Date Type Department Care Team ([facility] st Contact Info) Description 09/28/2024 Procedure Pass [address] [place] [address] 11/28/2024 11:30 AM EDT Office Visit [facility] [address] [place] [address] Brooke Pressley MD 299 [facility] [address] [place] [address] Kim Braun, PT 380 [place] [address] 05/10/2025 9:15 AM EDT Appointment [address] [place] [address] Jessy Andersen FNP 73 [place] [address] documented as of this encounter Visit Diagnoses Not on filedocumented in this encounter Additional Health Concerns Assessment Noted Time PHQ-2 Depression Total Score: 0 09/02/19 23 10:16 AM EDT documented as of this encounter Care Teams Excel Expert Relationship Specialty Start Date End Date Jacquelyn Chandler MD [address] [place] [address] 1 [place] [address] [email or web address] PCP - General Internal Medicine 12/01/17 01/28/23 Jessy Andersen FNP [address] [place] [address] PCP - General Nurse Practitioner 01/29/23 documented as of this encounter Additional Source Comments The information contained in this document represents components of the legal health record. It is not the complete legal health record.[facility]
--- OUTSIDE RECORDS SUMMARY | 2024-11-22 15:29 | XMS_ITS | Encounter Summary ---
Author Organization [facility] Address [address] [place] [address] Phone Care Team Providers Care Cv Rn Name Role Phone Jacquelyn Chandler MD Primary Care Provider + [phone] [facility] Primary Care Provide r Reason for Referral * MRI/CAT Scan - Closed Specialty Diagnoses / Procedures Referred By Gabriele canales Referred To Contact Radiology Diagnoses Lower abdominal pain Procedures CT Abdomen/Pelvis Seth Jeter MD Phone: tel: fax: mailto: Referral ID Status Reason Start Date Expiration Date Visits Re quested Visits Authorized [id number] Closed 09/26/2021 09/26/2022 1 1 Encounter Details Date Type Department Care Team (Latest Contact Info) Description 09/26/2021 Transcribe Orders Virtual Department 30 [place] [address] Seth Jeter MD [address] [place] [address] [email or web address] Lower abdominal pain (Primary Dx) Social History [...] Contact Info) Description 09/28/2024 Procedure Pass [address] [place] [address] 11/28/2024 11:30 AM EDT Office Visit [facility] 380 [place] [address] Brooke Pressley MD 299 [facility] [address] [place] [address] Kim Braun, PT 380 [place] [address] 05/10/2025 9:15 AM EDT Appointment [address] [place] [address] Jessy Andersen FNP 73 [place] [address] documented as of this encounter Results * [...] documented as of this encounter Care Teams Cv Rn Relationship Specialty Start Date End Date Jacquelyn Chandler MD [address] [place] [address] [email or web address] PCP - General Internal Medicine 12/01/17 01/28/23 Jessy Andersen FNP [address] [place] [address] PCP - General Nurse Practitioner 01/29/23 documented as of this encounter Additional Source Comments The information contained in this document represents components of the legal health record. It is not the complete legal health record.[facility]
--- OUTSIDE RECORDS SUMMARY | 2024-11-22 15:29 | XMS_ITS | Encounter Summary ---
Author Organization [facility] Address [address] [place] [address] Phone Care Team Providers Care Marine Mechanic Name Role Phone Jessy Andersen SENIOR ELECTRICAL ESTIMATOR Primary Care Provide r Encounter Details Date Type Department Care Team (Late st Contact Info) Description 04/09/2023 Ancillary Orders Virtual Department 30 [place] [address] Jessy Andersen SENIOR ELECTRICAL ESTIMATOR [address] [place] [address] Rheumatoid arthritis with positive rheumatoid factor, involving [...] Contact Info) Description 09/28/2024 Procedure Pass [address] [place] [address] 11/28/2024 11:30 AM EDT Office Visit [facility] [address] [place] [address] Brooke Pressley MD [address] [place] [address] [address] [place] [address] Kim Braun, PT 380 [place] [address] 05/10/2025 9:15 AM EDT Appointment [address] [place] [address] Jessy Andersen FNP 73 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 Jessy Lazcanokarla [place] IMG XR LOWER EXTREMIT Y Final Result documented in this encounter Visit [...] documented as of this encounter Care Teams Marine Mechanic Relationship Specialty Start Date End Date Jessy Andresen FNP PCP - General Nurse Practitioner 01/29/23 documented as of this encounter Additional Source Comments The information contained in this document represents components of the legal health record. It is not the complete legal health record.[facility]
--- OUTSIDE RECORDS SUMMARY | 2024-11-22 15:29 | XMS_ITS | Clinical Summary ---
Author Organization [employer] Address [address] [facility] 7t [place] [address] Care Team Providers Care Special Education Director Name Role Phone Nathaly Jessy [facility] Primary Care Provider [phone] Allergies Active Allergy Reactions Criticality Noted Date [...] 4 TIMES DAILY NEEDED 05/29/19 24 Active Aspirin Low Dose 81 MG EC tabletIndications: TIA (transient ischemic attack),Atheroscle rosis of [place] coronary artery of [place] heart without angina pectoris TAKE 1 TABLET (81 MG) BY MOUTH IN THE MORNING 90 tablet 3 09/27/20 24 Active ipratropium-albute rol (Duo-Neb) 0.5-2.5 mg/3 [...] CAP. 48 mL 1 06/15/19 25 Active atorvastatin (Lipitor) 20 MG tabletIndications: Hyperlipidemia, unspecified hyperlipidemia type TAKE 1 TABLET BY MOUTH AT BEDTIME 90 tablet 3 09/01/19 25 Active nabumetone (Relafen) 500 MG tabletIndications: Fibromyalgia TAKE 1 TABLET (500 MG) BY MOUTH ONCE PER DAY. TAKE WITH FOOD 90 tablet 10/18/19 25 Active Active Problems Problem Noted Date Diagnosed Date ILD (interstitial lung disease) 11/08/2024 Hepatic steatosis 10/03/2024 Fibromyalgia 12/23/2023 Elevated rheumatoid factor 12/23/2023 Primary osteoarthritis of both hips 09/17/2023 Chronic bilateral low back pain without sciatica 09/17/2023 Gastroesophageal reflux dise ase with esophagitis without hemorrhage 09/17/2023 TIA (transient ischemic attack) 11/11/2022 Mild persistent asthma without complication 04/2021 Atherosclerosis of coronary artery of [place] hea rt 08/01/2021 Hyperlipidemia 08/01/2021 Overview (11/10/2022): Last Assessment & Plan: Controlled on meds Degenerative disc disease, lumbar 01/21/2019 Primary osteoarthritis of both knees 01/21/2019 Resolved Problems Problem Noted Date Diagnosed Date Resolved Date Palpitations 08/01/2021 11/11/2022 Overview (11/10/2022): Last Assessment & Plan: Unclear etiology Patient currently being evaluated by Cardiology for this Encounters Date Type Department Care Team Description 11/03/2024 Orders Only [facility] Information [facility] [address] [facility], [place] [address] [place], [place], [facility] 10/17/[address] [place] [address] [place], [place], [employer] Fibromyalgia 10/10/[address], [place] [address] [place], [place], [facility] Results 10/05/2024 Results Follow-Up [address] [place] [address] [place], [place], [facility] XR bone density w SPECT lumbar 10/03/2024 Results Follow-Up [address] [place] [address] [place], [place], [facility] Abdomen Limited, Helicobacter pylori, Urea Breath Test [id number] 10/03/[address] [place] [address] [place], [place], [facility] Results 09/22/2024 11:40 AM EDT Office Visit [address] [place] [address] [place], [place], [facility] Cognitive impairment (Primary Dx); Snoring; Gait instability; Epigastric pain; History of Helicobacter pylori infection; Nausea and vomiting, unspecified vomiting type; Gastroesophageal reflux disease, unspecified whether esophagitis present 09/01/2024 Orders Only [facility] Information [facility] [address] [facility], [place] [address] [place], [place], [employer] 08/31/[address] [place] [address] [place], [place], [facility] Hyperlipidemia, unspecified hyperlipidemia type from Last 3 Months Immunizations Immunization Administration [...] Description 12/22/2024 11:40 AM EDT Office Visit [place] [facility] 70 [place] [address] [place], [place], [facility] 70 [place] [address] Health Maintenance Due Date Last Done Comments [...] Maintenance Results * Sed Rate by Modified Justinergren (11/02/2024 2:06 PM EDT) Blood Venous blood specimen / Unknown [facility] LAB BLOOD ORDERABLES Ana l Result * CBC auto differential (11/02/2024 2:06 PM EDT) Blood Venous blood specimen / Unknown [facility] LAB BLOOD ORDERABLES Ana l Result * Referral to Pulmonology (11/02/2024) [facility] OUTPATIENT REFERRAL ORDER GABBI Final Result * XR bone density w SPECT lumbar (10/04/2024) Anatomical Region Laterality Modality L-spine N/A Radiographic Yolie ging [facility] IMG DXA PROCEDURES Final Result * Helicobacter pylori, Urea Breath Test [id number] (10/04/2024) Breath (Breath) [facility] LAB BODY FLUIDS AND STOOL S ORDERABLES Final Result EXTERNAL LAB * US Abdomen Limited (10/03/2024) Anatomical Region Laterality Modality Abdomen Ultrasound [facility] IMG US PROCEDURES Final R esult * Comprehensive Metabolic Panel (08/29/2024 11:29 AM EDT) Blood Venous blood specimen / Unknown [facility] LAB BLOOD ORDERABLES Ana l Result * Referral to Neurology (08/29/2024) [facility] OUTPATIENT REFERRAL ORDER GABBI Final Result * Lipid Panel, Standard (12/16/2023) Blood Venous blood specimen / Unknown [facility] LAB BLOOD ORDERABLES Ana l Result EXTERNAL LAB * Hm Mammography (02/03/2023) Anatomical Region Laterality Modality Other Result [facility] Edited Result - Final * Colonoscopy (08/12/2018) Colonoscopy Normal Normal [facility] HEALTH MAINTENANCE Final Result from Last 3 Months or Most Recently Relevant to Health Maintenance Insurance [facility] DUAL COMPLETE [facility] STANDARD Care Teams Special Education Director Relationship Specialty Start Date End Date [place], [place], [facility] [address] [place] [address] PCP - General Family Medicine 10/01/22
--- OUTSIDE RECORDS SUMMARY | 2024-11-22 15:30 | XMS_ITS | Encounter Summary ---
Author Organization [facility] Address [address] [place] [address] Phone Care Team Providers Care Air Traffic Control Specialist Name Role Phone Jacquelyn Chandler MD Primary Care Provider [phone] [facility] Primary Care Provide r Encounter Details Date Type Department Care Team (Late st Contact Info) Description 01/10/2020 Procedure Pass [address] [address] Social History Tobacco Use Types Packs/Day Years [...] Contact Info) Description 09/28/2024 Procedure Pass [address] [place] [address] 11/28/2024 11:30 AM EDT Office Visit [facility] [address] [place] [address] Brooke Pressley MD 299 [facility] [address] [place] [address] Kim Braun, PT [address] [place] [address] 05/10/2025 9:15 AM EDT Appointment [facility] - [address] [place] [address] Jessy Andersen FNP 73 [place] [address] documented as of this encounter Visit Diagnoses Not on filedocumented in this encounter Additional Health Concerns Infection Onset Date Last Indicated Resolved Time CoV-Risk 12/21/2021 12/21/2021 01/01/2022 1:22 AM EDT documented as of this encounter Care Teams Air Traffic Control Specialist Relationship Specialty Start Date End Date Jacquelyn Chandler MD [address] [place] [address] PCP - General Internal Medicine 12/01/17 01/28/23 Jessy Andersen FNP [address] [place] [address] PCP - General Nurse Practitioner 01/29/23 documented as of this encounter Additional Source Comments The information contained in this document represents components of the legal health record. It is not the complete legal health record.[facility]
--- OUTSIDE RECORDS SUMMARY | 2024-11-22 15:30 | XMS_ITS | Encounter Summary ---
Author Organization [facility] Address [address] [place] [address] [place] [address] Phone Care Team Providers Care Corporate Affairs Manager Name Role Phone Jacquelyn Chandler MD Primary Care Provider [facility] Primary Care Provide r Encounter Details Date Type Department Care Team (Late st Contact Info) Description 09/28/2019 Procedure Pass [facility] Scan - [address] [address] Social History Tobacco Use Types Packs/Day Years [...] Procedure Pass [facility] - [address] [place] [address] 11/28/2024 11:30 AM EDT Office Visit [facility] [address] [facility] [place] [address] Brooke rPessley MD 299 [facility] [address] [place] [address] Kim Braun, PT 380 [place] [address] 05/10/2025 9:15 AM EDT Appointment [facility] - [address] [place] [address] Jessy Andersen FNP 73 [place] [address] documented as of this encounter Visit Diagnoses Not on filedocumented in this encounter Additional Health Concerns Infection Onset Date Last Indicated Resolved Time CoV-Risk 12/21/2021 12/21/2021 01/01/2022 1:22 AM EDT documented as of this encounter Care Teams Corporate Affairs Manager Relationship Specialty Start Date End Date Jacquelyn Chandler MD [address] [place] [address] PCP - General Internal Medicine 12/01/17 01/28/23 Jessy Andersen FNP [address] [place] [address] PCP - General Nurse Practitioner 01/29/23 documented as of this encounter Additional Source Comments The information contained in this document represents components of the legal health record. It is not the complete legal health record.[facility]
--- OUTSIDE RECORDS SUMMARY | 2024-11-22 15:30 | XMS_ITS | Encounter Summary ---
Author Organization [facility] Address [address] [place] [address] Phone Care Team Providers Care Head Concierge Name Role Phone Jacquelyn Chandler MD Primary Care Provider + [phone] [facility] Primary Care Provide r Reason for Referral * MRI/CAT Scan - Closed Specialty Diagnoses / Procedures Referred By Gabriele canales Referred To Contact Radiology Diagnoses Memory loss Numbness Procedures MRI Brain Taqueria Aj MD Phone: tel: fax: [email or web address] Referral ID Status Reason Start Date Expiration Date Visits Re quested Visits Authorized [id number] Closed 01/09/2020 04/08/2020 1 1 Encounter Details Date Type Department Care Team (Latest Contact Info) Description 01/10/2020 Transcribe Orders Virtual Department [address] [place] [address] Taqueria Aj MD [address] [place] [address], [address] [place], [place] [phone] [email or web address] Memory loss (Primary [...] Contact Info) Description 09/28/2024 Procedure Pass [address] [place] [address] 11/28/2024 11:30 AM EDT Office Visit [facility] [address] [place] [address] Brooke Pressley MD 299 [facility] [address] [place] [address] Kim Braun, PT 380 [place] [address] 05/10/2025 9:15 AM EDT Appointment [address] [place] [address] Jessy Andersen FNP 73 [place] [address] documented as of this encounter Results * [...] significant intracranial abnormalities. us Taqueria Aj MD [facility] [place] HEAD/NECK Final Resul t * US [...] documented as of this encounter Care Teams Head Concierge Relationship Specialty Start Date End Date Jacquelyn Chandler MD [address] [place] [address] [email or web address] PCP - General Internal Medicine 12/01/17 01/28/23 Jessy Andersen FNP [address] [place] [address] PCP - General Nurse Practitioner 01/29/23 documented as of this encounter Additional Source Comments The information contained in this document represents components of the legal health record. It is not the complete legal health record.[facility]
--- OUTSIDE RECORDS SUMMARY | 2024-11-22 15:30 | XMS_ITS | Encounter Summary ---
Author Organization [facility] Address [address] [place] [address] Phone Care Team Providers Care Support Merchandiser Name Role Phone Jacquelyn Chandler MD Primary Care Provider [facility] Primary Care Provide r Encounter Details Date Type Department Care Team (Late st Contact Info) Description 11/25/2019 Procedure Pass [place] Admitting Dept - Virtual Department 30 [place] [address] Social History Tobacco Use Types Packs/Day Years [...] st Contact Info) Description 09/28/2024 Procedure Pass [address] [place] [address] 11/28/2024 11:30 AM EDT Office Visit [facility] [address] [place] [address] Brooke Pressley MD 299 [facility] [address] [place] [address] Kim Braun, PT [address] [place] [address] 05/10/2025 9:15 AM EDT Appointment [facility] - [address] [place] [address] Jessy Andersen FNP 73 [place] [address] documented as of this encounter Visit Diagnoses Not on filedocumented in this encounter Additional Health Concerns Infection Onset Date Last Indicated Resolved Time CoV-Risk 12/21/2021 12/21/2021 01/01/2022 1:22 AM EDT documented as of this encounter Care Teams Support Merchandiser Relationship Specialty Start Date End Date Jacquelyn Chandler MD [address] [place] [address] PCP - General Internal Medicine 12/01/17 01/28/23 Jessy Andersen FNP [address] [place] [address] PCP - General Nurse Practitioner 01/29/23 documented as of this encounter Additional Source Comments The information contained in this document represents components of the legal health record. It is not the complete legal health record.[facility]
--- OUTSIDE RECORDS SUMMARY | 2024-11-22 15:30 | XMS_ITS | Encounter Summary ---
Author Organization [facility] Address [address] [place] [address] [place] [address] Phone Care Team Providers Care Park Guard Name Role Phone Jacquelyn Chandler MD Primary Care Provider [place], [place] Tyra [facility] Primary Care Provide r Encounter Details Date Type Department Care Team (Latest Contact Info) Description 10/17/2019 Transcribe Orders [address] [place] [address] Seth Jeter MD [address] [place] [address] [email or web address] Abdominal pain, RLQ (Primary Dx) [...] Contact Info) Description 09/28/2024 Procedure Pass [address] [place] [address] 11/28/2024 11:30 AM EDT Office Visit [facility] [address] [place] [address] Brooke Pressley MD [address] [place] [address] Kim Braun, PT 380 [place] [address] 05/10/2025 9:15 AM EDT Appointment [address] [place] [address] Jessy Andersen, CREAM TESTER [address] [place] [address] documented as of this encounter Results * Creatinine/eGFR (10/17/2019 3:24 PM EDT) CREATININE 1.00 0.5 - 1.5 mg/dL [facility] EGFR 60 >59 mL/min/1.7 3m2 [facility] Comment:Estimated glomerular filtration rate calculated using the CKD-EPI equation. Blood 10/17/2019 3:24 PM EDT 10/17/2019 3:26 PM EDT us Seth Jeter MD LAB BLOOD ORDERABLES Final R esult [facility] [address] [place] [address] * BUN (10/17/2019 3:24 PM EDT) BUN 18 6 - 19 mg/dL [facility] Blood 10/17/2019 3:24 PM EDT 10/17/2019 3:26 PM EDT us Seth Jeter MD LAB BLOOD ORDERABLES Final R esult [facility] [address] [place] [address] documented in this encounter Visit Diagnoses Diagnosis Abdominal pain, RLQ- Primary documented in this encounter Additional Health Concerns Infection Onset Date Last Indicated Resolved Time CoV-Risk 12/21/2021 12/21/2021 01/01/2022 1:22 AM EDT documented as of this encounter Care Teams Park Guard Relationship Specialty Start Date End Date Jacquelyn Chandler MD [address] [place] [phone] PCP - General Internal Medicine 12/01/17 01/28/23 Jessy Andersen FNP [address] [place] [address] PCP - General Nurse Practitioner 01/29/23 documented as of this encounter Additional Source Comments The information contained in this document represents components of the legal health record. It is not the complete legal health record.[facility]
--- OUTSIDE RECORDS SUMMARY | 2024-11-22 15:30 | XMS_ITS | Encounter Summary ---
Author Organization [facility] Address [email or web address] [place] [address] Phone Care Team Providers Care Retail General Manager Name Role Phone Jessy Andersen AWNING INSTALLER Primary Care Provide r Encounter Details Date Type Department Care Team (Late st Contact Info) Description 03/20/2023 Transcribe Orders Virtual Department [address] [place] [address] Jessy Andersen AWNING INSTALLER [address] [place] [address] Rheumatoid arthritis with positive rheumatoid factor, involving [...] Contact Info) Description 09/28/2024 Procedure Pass [address] [place] [address] 11/28/2024 11:30 AM EDT Office Visit [facility] [address] [place] [address] Brooke Pressley MD [address] [place] [address] [address] [place] [address] Kim Braun, PT [address] [place] [address] 05/10/2025 9:15 AM EDT Appointment [address] [place] [address] Jessy Andersen FNP 73 [facility] [place] [address] documented as of this encounter Visit Diagnoses Diagnosis Rheumatoid arthritis with positive rheumatoid factor, involving unspecified site- Primary Chronic pain of both knees documented in this encounter Additional Health Concerns Assessment Noted Time PHQ-2 Depression Total Score: 0 09/02/19 23 10:16 AM EDT documented as of this encounter Care Teams Retail General Manager Relationship Specialty Start Date End Date Nathaly GEOVANNA Mcgraw PCP - General Nurse Practitioner 01/29/23 documented as of this encounter Additional Source Comments The information contained in this document represents components of the legal health record. It is not the complete legal health record.[facility]
--- OUTSIDE RECORDS SUMMARY | 2024-11-22 15:30 | XMS_ITS | Encounter Summary ---
Author Organization [facility] Address [address] [place], [place] [phone] Phone Care Team Providers Care Insurance Counselor Name Role Phone Jacquelyn Chandler MD Primary Care Provider [facility] Primary Care Provide r Encounter Details Date Type Department Care Team (Late st Contact Info) Description 09/23/2021 Procedure Pass [address] [place] [address] Social History Tobacco Use Types Packs/Day Years [...] st Contact Info) Description 09/28/2024 Procedure Pass [address] [place] [address] 11/28/2024 11:30 AM EDT Office Visit [facility] [address] [facility] [place] [address] Brooke Pressley MD 299 [facility] [address] [place] [address] Kim Braun, PT 380 [place] [address] 05/10/2025 9:15 AM EDT Appointment [address] [place] [address] Jessy Andersen FNP 73 [facility] [place] [address] documented as of this encounter Visit Diagnoses Not on filedocumented in this encounter Additional Health Concerns Infection Onset Date Last Indicated Resolved Time CoV-Risk 12/21/2021 12/21/2021 01/01/2022 1:22 AM EDT Assessment Noted Time PHQ-2 Depression Total Score: 0 07/30/19 10:09 AM EDT documented as of this encounter Care Teams Insurance Counselor Relationship Specialty Start Date End Date Jacquelyn Chandler MD [address] [place] [address] [email or web address] PCP - General Internal Medicine 12/01/17 01/28/23 Jessy Andersen FNP [address] [place] [address] PCP - General Nurse Practitioner 01/29/23 documented as of this encounter Additional Source Comments The information contained in this document represents components of the legal health record. It is not the complete legal health record.[facility]
--- OUTSIDE RECORDS SUMMARY | 2024-11-22 15:30 | XMS_ITS | Encounter Summary ---
Author Organization [employer] Address [address] [place] [address] 7t [place] [address] Care Team Providers Care Customizer Name Role Phone [facility] Primary Care Provider [phone] Encounter Details Date Type Department Care Team (Late st Contact Info) Description 02/06/2023 Orders Only [facility] Information Management [address] [place] [address] [facility] [place] [facility] [address] [place] [address] Social History Tobacco Use Types Packs/Day Years [...] 12/22/2024 11:40 AM EDT Office Visit [facility] [address] [place] [address] [place], [place] [facility] [address] [place] [address] documented as of this encounter Procedures Procedure Name Priority Date/Time Associated Diagnosis Comments MAMMOGRAPHY Routine 02/03/2023 documented in this encounter Results * Mammography (02/03/2023) Anatomical Region Laterality Modality Other Jessy Andersen [facility] Result - Final documented in this encounter Visit Diagnoses Not on filedocumented in this encounter Care Teams Customizer Relationship Specialty Start Date End Date Jessy Andersen FNP 70 [place] [address] PCP - General Family Medicine 10/01/22 documented as of this encounter
--- OUTSIDE RECORDS SUMMARY | 2024-11-22 15:30 | XMS_ITS | Encounter Summary ---
Author Organization [facility] Address [address] [place] [address] Phone Care Team Providers Care Locum Tenens Hospitalist Name Role Phone Jessy Andersen CLIENT SPECIALIST Primary Care Provide r Encounter Details Date Type Department Care Team (Late st Contact Info) Description 06/22/2024 Procedure Pass [facility], [address] [address] Social History Tobacco Use Types Packs/Day Years [...] st Contact Info) Description 09/28/2024 Procedure Pass [address] [place] [address] 11/28/2024 11:30 AM EDT Office Visit [facility] [address] [place] [address] Brooke Pressley MD 299 [facility] [address] [place] [address] Kim Braun, PT 380 [place] [address] 05/10/2025 9:15 AM EDT Appointment [address] [place] [address] Jessy Andersen FNP 73 [place] [address] documented as of this encounter Visit Diagnoses Not on filedocumented in this encounter Additional Health Concerns Assessment Noted Time PHQ-2 Depression Total Score: 0 09/02/19 10:16 AM EDT documented as of this encounter Care Teams [facility] Hospitalist Relationship Specialty Start Date End Date Jessy Andersen FNP PCP - General Nurse Practitioner 11/30/23 documented as of this encounter Additional Source Comments The information contained in this document represents components of the legal health record. It is not the complete legal health record.[facility]
--- OUTSIDE RECORDS SUMMARY | 2024-11-22 15:30 | XMS_ITS | Encounter Summary ---
Author Organization [facility] Address [address] [place] [address] Phone Care Team Providers Care Research Test Engine Operator Name Role Phone Dinh Keane ENVIRONMENTAL HEALTH AND SAFETY LEADER Primary Care Provide r Encounter Details Date Type Department Care Team (Late st Contact Info) Description 12/23/2023 Transcribe Orders Virtual Department 30 [place] [address] Dinh Keane FNP [address] [place] [address] Screening for osteoporosis (Primary Dx); Chronic bilateral [...] Contact Info) Description 09/28/2024 Procedure Pass [address] [place] [address] 11/28/2024 11:30 AM EDT Office Visit [facility] [address] [place] [address] Brooke Pressley MD [address] [place] [address] [address] [place] [address] Kim Braun, PT [address] [place] [address] 05/10/2025 9:15 AM EDT Appointment [address] [place] [address] Dinh Keane FNP 73 [facility] [address] documented as of this encounter Results * BD DXA AXIAL (SPINE) WITH HIP (10/04/2024 10:41 AM EDT) Anatomical Region Laterality Modality Bone Density Bone Density 10/04/2024 10:3 0 AM EDT Impressions 10/05/2024 12:30 PM EDT Interpretation: Normal bone mineral density. Narrative 10/05/2024 12:30 PM EDT Referred By: DINH KEANE Indications: Osteoporosis Scanner: HoloGetable A with serial# of [id number] located at [facility] Bone Density Scan (DXA) 10/04/24 Details of [...] -2.5), or Osteoporosis (T-score <= -2.5). At [facility], T-scores are compared to peak bone density [...] Referred By: DINH KEANE Indications: Osteoporosis Scanner: HoloGetable A with serial# of [id number] located at [facility] Bone Density Scan (DXA) 10/04/24 Details of [...] -2.5), or Osteoporosis (T-score <= -2.5). At [facility], T-scores are compared to peak bone density [...] Normal bone mineral density. us Dinh Keane ENVIRONMENTAL HEALTH AND SAFETY LEADER IMG BD BONE DENSITY D EXA Final Result * US Kidneys and Bladder [...] Post void residual volumemeasuring 17 mL's. Dinh [place] IM US RENAL Final Result documented in [...] documented as of this encounter Care Teams Research Test Engine Operator Relationship Specialty Start Date End Date Dinh Keane FNP PCP - General Nurse Practitioner 01/29/23 documented as of this encounter Additional Source Comments The information contained in this document represents components of the legal health record. It is not the complete legal health record.[facility]
--- OUTSIDE RECORDS SUMMARY | 2024-11-22 15:30 | XMS_ITS | Clinical Summary ---
Author Organization [facility] Address [address] [address] Phone Care Team Providers Care Cow Buyer Name Role Phone Dinh Keane [facility] Primary Care Provide r Allergies No known active allergies Medications atorvastatin [...] BY MOUTH DAILY. CALL OFFICE FOR FOLLOWUP [phone] 12/10/19 22 Active levalbuterol (XOPENEX) 0.31 mg/3 [...] seven (7) days, may remove with nail hebrew remover and continue cycle. 6.6 mL 3 [...] virus 08/01 Atherosclerosis of coronary artery of [place] 08/01/2021 Assessment & Plan (02/13/2022 7:02 AM EST): F/u Cardiology as discussed Assessment & Plan (08/01/2021 1:42 PM EDT): Follow up with Cardiology as discussed Requesting 2nd opinion from [facility] Hyperlipidemia 08/01/2021 Assessment & Plan (02/13/2022 7:03 AM EST): Controlled on meds Assessment & Plan (08/01/2021 1:43 PM EDT): Controlled on medication Seasonal allergies 08/01/2021 Assessment & Plan (01/02/2022 8:00 AM EDT): Continue current MAT for allergy sxs Breast pain 08/01/2021 Routine general medical exam ination at a [facility] care facility 08/01/2021 Assessment & Plan (08/01/2021 1:37 PM EDT): Sees Dr. Dayana Freedman regularly Mammo UTD Colonoscopy 2020 +SBE every 2-3 months Declines Shingrix vaccine today Palpitations 08/01/2021 Assessment & Plan (02/13/2022 7:04 AM EST): Unclear etiology Patient currently being evaluated by Cardiology for this Assessment & Plan (08/01/2021 1:43 PM EDT): Per your request, referral to [facility] given your persistant symptoms Tick bite [...] Plan (10/21/2019 3:04 PM EDT): Unlikely of CLIENT SERVICE AND CONSULTING MANAGER origin Assessment & Plan (09/27/2018 3:51 PM [...] Encounters Date Type Department Care Team Description 11/21/2024 11:30 AM EDT Office Visit [address] [address] Brooke Pressley MD Sharkey, Linda Ann, PT Other abnormalities of gait and mobility (Primary Dx) 11/14/2024 11:30 AM EDT Office Visit [address] [address] Brooke Pressley MD Sharkey, Linda Ann, PT Other abnormalities of gait and mobility (Primary Dx) 11/07/2024 11:30 AM EDT Office Visit [address] [place] [address] Brooke Pressley MD Sharkey, Linda Ann, PT Other abnormalities of gait and mobility (Primary Dx) 10/17/2024 9:15 AM EDT Office Visit [address] [address] Brooke Pressley MD Sharkey, Linda Ann, PT Other abnormalities of gait and mobility (Primary Dx) 10/06/2024 10:30 AM EDT Office Visit [address] [address] Brooke Pressley MD Sharkey, Linda Ann, PT Other abnormalities of gait and mobility (Primary Dx) 10/06/2024 Plan of Care Documentation [address] [address] 10/04/2024 10:12 AM EDT - 10/04/2024 11:59 PM EDT Hospital Encounter [address] [address] Dinh Keane FNP Discharge Disposition: Home or Self Care 10/04/2024 9:23 AM EDT - 10/04/2024 10:11 AM EDT Hospital Encounter [facility] [address] [place] [address] Dinh Keane FNP Discharge Disposition: Home or Self Care 10/03/2024 9:42 AM EDT - 10/03/2024 11:59 PM EDT Hospital Encounter [facility] - [address] [place] [address] Dinh Keane FNP Discharge Disposition: Home or Self Care 09/28/2024 Transcribe Orders Virtual Department [address] [place] [address] Dinh Keane FNP Breast screening (Primary Dx); Nausea and vomiting, unspecified vomiting type 09/22/2024 Transcribe Orders Virtual Department [address] [place] [address] Frontiero, Dinh Tyra, IMAGING MANAGER Nausea and vomiting, unspecified vomiting type (Primary Dx) 09/06/2024 Transcribe Orders [facility] [address] [place] [address] Angela Olson Encounter for rehabilitation (Primary Dx) [...] Contact Info) Description 09/28/2024 Procedure Pass [address] [place] [address] 11/28/2024 11:30 AM EDT Office Visit [facility] [address] [place] [address] Brooke Pressley MD 299 [facility] [address] [place] [address] Kim Braun, PT [address] [place] [address] 05/10/2025 9:15 AM EDT Appointment [address] [place] [address] Dinh Keane FNP [address] [place] [address] Health Maintenance Due Date Last Done Comments [...] Referred By: DINH KEANE Indications: Osteoporosis Scanner: ActionIQ A with serial# of [id number] located at [facility] Bone Density Scan (DXA) 10/04/24 Details [...] -2.5), or Osteoporosis (T-score <= -2.5). At [facility], T-scores are compared to peak bone [...] Referred By: DINH KEANE Indications: Osteoporosis Scanner: ActionIQ A with serial# of [id number] located at [facility] Bone Density Scan (DXA) 10/04/24 Details [...] -2.5), or Osteoporosis (T-score <= -2.5). At [facility], T-scores are compared to peak bone [...] results. IMPRESSION: Interpretation: Normal bone mineral density. [facility] IMG BD BONE DENSITY D EXA Final Result * H PYLORI UREA BREATH TEST (10/04/2024 10:32 AM EDT) H.PYLORI C UREA BRTH Negative Negative [facility] Comment: (NOTE) Result indicates the absence of current Helicobacter pylori infection. Blood 10/04/2024 10:3 2 AM EDT 10/04/2024 10:35 AM EDT [facility] LAB BLOOD ORDERABLES Final Result [facility] [address] [place] [address] * US ABDOMEN LIMITED RIGHT UPPER QUADRANT [...] clinician's provided indication for this examination in [facility]: Outside Radiology Order; Nausea/vomiting; EPIGASTRIC [...] clinician's provided indication for this examination in [facility]:Outside Radiology Order; Nausea/vomiting; EPIGASTRIC PAIN [...] Noovert hydronephrosis. No sonographically evident renal calculi. [facility] IMAGING MANAGER IMG US ABDOMEN Final Result * BI [...] be notified of the results and recommendations. [facility] IMAGING MANAGER IMG MG EXAMS Final Result * Hepatitis C antibody, qualitative (11/27/2021 11:43 AM EDT) HCV NON-REACTIV E NON-REACTI VE [facility] Blood 11/27/2021 11:4 3 AM EDT 11/27/2021 11:47 AM EDT Jacquelyn Chandler MD LAB BLOOD ORDERABLES Final R esult [facility] [address] [place] [address] * COLONOSCOPY FOR RESULT ENTRY ONLY (08/12/2018) Colonoscopy 10 yr recall us Historical Provider HEALTH MAINTENANCE Final Result from Last 3 Months or Most Recently Relevant to Health Maintenance Insurance [place] [id number] Care Teams Cow Buyer Relationship Specialty Start Date End Date Dinh Keane FNP PCP - General Nurse Practitioner 01/29/23 Additional Source Comments The information contained in this document represents components of the legal health record. It is not the complete legal health record.[facility]
--- OUTSIDE RECORDS SUMMARY | 2024-11-22 15:30 | XMS_ITS | Encounter Summary ---
Author Organization [facility] Address [address] [place] [address] [place] [address] Phone Care Team Providers Care Service Secretary Name Role Phone Jacquelyn Chandler MD Primary Care Provider [facility] Tyra [facility] Primary Care Provide r Encounter Details Date Type Department Care Team (Latest Contact Info) Description 01/02/2020 Transcribe Orders [facility] [address] [place] [address] Geovani Kwan MD [address] [place] [address] Chest pain, unspecified type (Primary Dx) Social [...] st Contact Info) Description 09/28/2024 Procedure Pass [address] [place] [address] 11/28/2024 11:30 AM EDT Office Visit [facility] [address] [place] [address] Brooke Pressley MD 299 [facility] [address] [place] [address] Kim Braun, PT [address] [place] [address] 05/10/2025 9:15 AM EDT Appointment [address] [place] [address] Jessy Andersen, BOILERMAKER PIPE FITTER [address] [place] [address] documented as of this encounter Results * CBC and differential (01/02/2020 8:42 AM EST) WBC 5.27 4.00 - 11.00 K/uL [facility] Comment:Note Reference Range updates to all CBC and Differential results. RBC 4.66 3.72 - 5.30 M/uL [facility] HGB 12.8 11.4 - 15.9 g/dL [facility] Comment:Note updated Referen ce Ranges for all CBC and Differential results. HCT 40.0 34.2 - 46.8 % [facility] PLT 270 140 - 430 K/uL [facility] MCV 85.8 78.0 - 97.0 fL [facility] MCH 27.5 25.0 - 33.0 pg [facility] MCHC 32.0 32.0 - 36.0 g/dL [facility] RDW 13.0 11.0 - 16.0 % [facility] MPV 11.2 8.4 - 12.8 [facility] NRBC 0.00 0 /100 WBCs [facility] ABSOLUTE NRBC 0.00 0 K/uL [facility] DIFF METHOD Auto [facility] NEUTS 53.2 43.0 - 75.0 % [facility] LYMPHS 35.9 18.2 - 47.4 % [facility] MONOS 7.6 4.00 - 11.00 % [facility] EOS 2.1 0.0 - 8.0 % [facility] BASOS 0.8 0.0 - 2.0 % [facility] Granulocytes, immature (%) 0.4 0.0 - 0.9 % [facility] ABSOLUTE NEUTS 2.81 1.80 - 7.70 K/uL [facility] ABSOLUTE LYMPHS 1.89 1.00 - 3.10 K/uL [facility] ABSOLUTE MONOS 0.40 0.20 - 0.80 K/uL [facility] ABSOLUTE EOS 0.11 0.00 - 0.80 K/uL [facility] ABSOLUTE BASOS 0.04 0.00 - 0.09 K/uL [facility] Granulocytes, immature 0.02 0.00 - 0.05 K/uL [facility] Blood 01/02/2020 8:42 AM EST 01/02/2020 8:44 AM EST us Geovani Kwan MD LAB BLOOD ORDERABLES Final R esult [facility] [address] [place] [address] * Basic metabolic panel (01/02/2020 8:42 AM EST) SODIUM 140 133 - 146 mmol/L [facility] CHLORIDE 103 96 - 108 mmol/L [facility] POTASSIUM 4.5 3.3 - 5.1 mmol/L [facility] CO2 28 21 - 35 mmol/L [facility] BUN 14 6 - 19 mg/dL [facility] CREATININE 1.00 0.5 - 1.5 mg/dL [facility] GLUCOSE 96 70 - 99 mg/dL [facility] CALCIUM 9.7 8.4 - 10.3 mg/dL [facility] EGFR 60 >59 mL/min/1.7 3m2 [facility] Comment:Estimated glomerular filtration rate calculated using the CKD-EPI equation. ANION GAP 14 10 - 20 mmol/L [facility] Blood 01/02/2020 8:42 AM EST 01/02/2020 8:44 AM EST Geovani Kwan MD LAB BLOOD ORDERABLES Final R esult [facility] [address] [place] [address] documented in this encounter Visit Diagnoses Diagnosis Chest pain, unspecified type- Primary documented in this encounter Additional Health Concerns Infection Onset Date Last Indicated Resolved Time CoV-Risk 12/21/2021 12/21/2021 01/01/2022 1:22 AM EDT documented as of this encounter Care Teams Service Secretary Relationship Specialty Start Date End Date Jacquelyn Chanlder MD [address] [place] [address] [email or web address] PCP - General Internal Medicine 12/01/17 01/28/23 Jessy Andersen FNP [address] [place] [address] PCP - General Nurse Practitioner 01/29/23 documented as of this encounter Additional Source Comments The information contained in this document represents components of the legal health record. It is not the complete legal health record.[facility]
--- OUTSIDE RECORDS SUMMARY | 2024-11-22 15:30 | XMS_ITS | Encounter Summary ---
Author Organization [facility] Address [address] [place] [address] Phone Care Team Providers Care Senior Asp Net Developer Name Role Phone Jessy Andersen [facility] Primary Care Provide r Encounter Details Date Type Department Care Team (Late st Contact Info) Description 03/11/2024 Ancillary Orders [facility], X-Ray - [address] [place] [address] Jessy Andersen [facility] [address] [place] [address] Acute cough (Primary Dx) Social History Tobacco [...] st Contact Info) Description 09/28/2024 Procedure Pass [address] [place] [address] 11/28/2024 11:30 AM EDT Office Visit [facility] [address] [place] [address] Brooke Pressley MD [address] [place] [address] [address] [place] [address] Kim Braun, PT 380 [place] [address] 05/10/2025 9:15 AM EDT Appointment [address] [place] [address] Jessy Andersen FNP 73 [facility] [place] [address] documented as of this encounter Results * [...] clinician's provided indication for this examination in [facility]: Cough COMPARISON: 07/03/2022, 01/17/2022 FINDINGS: Devices/Tubes/Lines: None. Lungs: Few linear opacities in the left base. Pleura: No pleural effusion or pneumothorax. Heart/Mediastinum: Stable size and contour of the cardiac silhouette. Bones/Soft Tissues: Multilevel spondylosis and bilateral acromioclavicular arthropathy. Procedure Note Stella Velasquez MD - 03/11/2024 XR CHEST PA AND LATERAL 2 VIEWS Referring clinician's provided indication for this examination in [facility]:Cough COMPARISON: 07/03/2022, 01/17/2022 FINDINGS: Devices/Tubes/Lines: None. Lungs: Few linear opacities in the left base. Pleura: No pleural effusion or pneumothorax. Heart/Mediastinum: Stable size and contour of the cardiac silhouette. Bones/Soft Tissues: Multilevel spondylosis and bilateral acromioclaviculararthropathy. IMPRESSION: Similar linear opacity in the left base, favored to represent an area ofscarring. No new focal airspace consolidation. Jessy AUSTIN IMG XR CHEST Final Result documented in this encounter Visit Diagnoses Diagnosis Acute cough- Primary Acute cough documented in this encounter Additional Health Concerns Assessment Noted Time PHQ-2 Depression Total Score: 0 09/02/19 23 10:16 AM EDT documented as of this encounter Care Teams Senior Asp Net Developer Relationship Specialty Start Date End Date Jessy Andersen FNP PCP - General Nurse Practitioner 01/29/23 documented as of this encounter Additional Source Comments The information contained in this document represents components of the legal health record. It is not the complete legal health record.[facility]
--- OUTSIDE RECORDS SUMMARY | 2024-11-22 15:30 | XMS_ITS | Encounter Summary ---
Author Organization [facility] Address [address] [facility] [address] [place] [address] Phone Care Team Providers Care Charging Car Operator Name Role Phone Jacquelyn Chandler MD Primary Care Provider [phone] [facility] Primary Care Provide r Encounter Details Date Type Department Care Team (Late st Contact Info) Description 01/06/2020 Transcribe Orders [facility] [address] [place] [address] Taqueria Govea MD [address] [facility], [address] [place] [address] Social History Tobacco Use Types Packs/Day Years [...] st Contact Info) Description 09/28/2024 Procedure Pass [address] Javier [place] [address] 11/28/2024 11:30 AM EDT Office Visit [facility] Services [address] [place] [address] Brooke Pressley MD 299 [facility] [address] [place] [address] Kim Braun, PT [address] [place] [address] 05/10/2025 9:15 AM EDT Appointment [address] [place] [address] Jessy Andersen FNP [address] [place] [address] documented as of this encounter Visit Diagnoses Not on filedocumented in this encounter Additional Health Concerns Infection Onset Date Last Indicated Resolved Time CoV-Risk 12/21/2021 12/21/2021 01/01/2022 1:22 AM EDT documented as of this encounter Care Teams Charging Car Operator Relationship Specialty Start Date End Date Jacquelyn Chandler MD [address] [place] [address] PCP - General Internal Medicine 12/01/17 01/28/23 Jessy Andersen FNP [address] [place] [address] PCP - General Nurse Practitioner 01/29/23 documented as of this encounter Additional Source Comments The information contained in this document represents components of the legal health record. It is not the complete legal health record.[facility]
--- OUTSIDE RECORDS SUMMARY | 2024-11-22 15:30 | XMS_ITS | Encounter Summary ---
Author Organization [facility] Address [address] [place] [address] Phone Care Team Providers Care Skiver Operator Name Role Phone Jacquelyn Chandler MD Primary Care Provider [facility] Tyra [facility] Primary Care Provide r Encounter Details Date Type Department Care Team (Late st Contact Info) Description 03/25/2018 Ancillary Orders Virtual Department 30 [place] [address] Jacquelyn Chandler MD [address] [place] [address] [email or web address] Low back pain, unspecified back pain laterality, [...] 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 Not on file Not on file documented as of this encounter Plan of Treatment Upcoming Encounters Date Type Department Care Team (Late st Contact Info) Description 09/28/2024 Procedure Pass [address] [place] [address] 11/28/2024 11:30 AM EDT Office Visit [facility] Services [address] [place] [address] Brooke Pressley MD 299 [facility] [address] [place] [address] iKm Braun, PT 380 [place] [address] 05/10/2025 9:15 AM EDT Appointment [address] [place] [address] Jessy Andersen FNP 73 [place] [address] documented as of this encounter Results * XR KNEE 4 OR MORE VIEWS (RIGHT) (03/29/2018 3:47 PM EST) Anatomical Region Laterality Modality Knee Right Radiographic Yolie ging 03/29/2018 4:09 PM EST Impressions 03/29/2018 4:12 PM EST Mild degenerative changes bilaterally. Chondrocalcinosis. POS - [id number] Narrative 03/29/2018 4:12 PM EST HISTORY: Right [...] Mild degenerative changes bilaterally. Chondrocalcinosis. POS - [id number] Jacquelyn Chandler MD IMG XR LOWER EXTREMITY Final Result * XR LUMBOSACRAL SPINE 4 OR MORE VIEWS (03/29/2018 3:46 PM EST) Anatomical Region Laterality Modality L-spine Radiographic Yolie ging 03/29/2018 4:19 PM EST Impressions 03/29/2018 4:21 PM EST Mild degenerative changes. No compression fractures. POS - [id number] Narrative 03/29/2018 4:21 PM EST HISTORY: Lower [...] degenerative changes. No compression fractures. POS - [id number] Jacquelyn Chandler MD IMG XR SPINE Final [...] documented as of this encounter Care Teams Skiver Operator Relationship Specialty Start Date End Date Jacquelyn Chandler MD [address] [place] [address] PCP - General Internal Medicine 12/01/17 01/28/23 Jessy Andersen FNP [address] [place] [address] PCP - General Nurse Practitioner 01/29/23 documented as of this encounter Additional Source Comments The information contained in this document represents components of the legal health record. It is not the complete legal health record.[facility]
--- OUTSIDE RECORDS SUMMARY | 2024-11-22 15:30 | XMS_ITS | Encounter Summary ---
Author Organization [facility] Address [address] [place] [address] Phone Care Team Providers Care Director Metabolism Name Role Phone Jessy Andersen [facility] Primary Care Provide r Encounter Details Date Type Department Care Team (Late st Contact Info) Description 01/29/2023 Procedure Pass [facility] - [address] [place] [address] Social History Tobacco Use Types Packs/Day Years [...] st Contact Info) Description 09/28/2024 Procedure Pass [address] [place] [address] 11/28/2024 11:30 AM EDT Office Visit [facility] [address] [place] [address] Brooke Pressley MD [address] [facility] [address] [place] [address] Kim Braun, PT 380 [place] [address] 05/10/2025 9:15 AM EDT Appointment [address] [place] [address] Jessy Andersen FNP 73 [place] [place] [address] documented as of this encounter Visit Diagnoses Not on filedocumented in this encounter Additional Health Concerns Assessment Noted Time PHQ-2 Depression Total Score: 0 09/02/19 10:16 AM EDT documented as of this encounter Care Teams Director Metabolism Relationship Specialty Start Date End Date Jessy Andersen FNP PCP - General Nurse Practitioner 01/29/23 documented as of this encounter Additional Source Comments The information contained in this document represents components of the legal health record. It is not the complete legal health record.[facility]
--- OUTSIDE RECORDS SUMMARY | 2024-11-22 15:30 | XMS_ITS | Encounter Summary ---
Author Organization [facility] Address [address] [place] [address] Phone Care Team Providers Care Fire Protection Inspector Name Role Phone Jessy Andersen Primary Care Provide r Reason for Referral * MRI/CAT Scan - Closed Specialty Diagnoses / Procedures Referred By Gabriele canales Referred To Contact Radiology Diagnoses Memory problem Balance problem Tremor Procedures MRI Brain Jessy Andersen FNP [address] [place] [address] Phone: tel: fax: Referral ID Status Reason Start Date Expiration Date Visits Re quested Visits Authorized [id number] Closed 06/22/2024 06/22/2025 1 1 Encounter Details Date Type Department Care Team (Late st Contact Info) Description 06/22/2024 Transcribe Orders Virtual Department [address] [place] [address] Jessy Andersen FNP [address] [place] [address] Memory problem (Primary Dx); Balance problem; Tremor [...] Procedure Pass [facility] - [address] [place] [address] 11/28/2024 11:30 AM EDT Office Visit [facility] Rehabilitation Services [address] [place] [address] Brooke Pressley MD [address] [place] [address] [address] [place] [address] Kim Braun, PT 380 [place] [address] 05/10/2025 9:15 AM EDT Appointment [address] [place] [address] [facility] [address] [place] [address] documented as of this encounter Results * [...] for this examination in Epic:Outside Radiology Order; tremor TECHNIQUE: MRI BRAIN WITHOUT [...] or regional pattern of volume loss. Jessy [facility] IMG MR HEAD/NECK Ana l Result documented in this encounter Visit Diagnoses Diagnosis Memory problem- Primary Memory loss Balance problem Abnormality of gait Tremor Abnormal involuntary movements Memory problem Memory loss Balance problem Abnormality of gait Tremor Abnormal involuntary movements documented in this encounter Additional Health Concerns Assessment Noted Time PHQ-2 Depression Total Score: 0 09/02/19 10:16 AM EDT documented as of this encounter Care Teams Fire Protection Inspector Relationship Specialty Start Date End Date Jessy Andersen FNP PCP - General Nurse Practitioner 01/29/23 documented as of this encounter Additional Source Comments The information contained in this document represents components of the legal health record. It is not the complete legal health record.[facility]
--- OUTSIDE RECORDS SUMMARY | 2024-11-22 15:30 | XMS_ITS | Encounter Summary ---
Author Organization [facility] Address [address] [place] [address] Phone Care Team Providers Care Tool Design Draftsperson Name Role Phone Jacquelyn Chandler MD Primary Care Provider [facility] Jessy Tyra [facility] Primary Care Provide r Encounter Details Date Type Department Care Team (Late st Contact Info) Description 08/14/2021 Procedure Pass [address] [place] [address] Social History Tobacco Use Types Packs/Day Years [...] Contact Info) Description 09/28/2024 Procedure Pass [address] [place] [address] 11/28/2024 11:30 AM EDT Office Visit [facility] Rehabilitation Services [address] [facility] [place] [address] Brooke Pressley MD 299 [facility] [address] [place] [address] Kim Braun, PT 380 [place] [address] 05/10/2025 9:15 AM EDT Appointment [address] [place] [address] Jessy Andersen FNP 73 [facility] [place] [address] documented as of this encounter Visit Diagnoses Not on filedocumented in this encounter Additional Health Concerns Infection Onset Date Last Indicated Resolved Time CoV-Risk 12/21/2021 12/21/2021 01/01/2022 1:22 AM EDT Assessment Noted Time PHQ-2 Depression Total Score: 0 07/30/19 10:09 AM EDT documented as of this encounter Care Teams Tool Design Draftsperson Relationship Specialty Start Date End Date Jacquelyn Chandler MD [address] [place] [address] [email or web address] PCP - General Internal Medicine 12/01/17 01/28/23 Jessy Andersen FNP [address] [place] [address] PCP - General Nurse Practitioner 01/29/23 documented as of this encounter Additional Source Comments The information contained in this document represents components of the legal health record. It is not the complete legal health record.[facility]
--- OUTSIDE RECORDS SUMMARY | 2024-11-22 15:30 | XMS_ITS | Encounter Summary ---
Author Organization [facility] Address [address] [place] [address] Phone Care Team Providers Care Reconciliation Manager Name Role Phone Jacquelyn Chandler MD Primary Care Provider [facility] Jessy Tyra [facility] Primary Care Provide r Encounter Details Date Type Department Care Team (Late st Contact Info) Description 12/24/2019 Procedure Pass [address] [place] [address] Social History Tobacco Use Types Packs/Day Years [...] st Contact Info) Description 09/28/2024 Procedure Pass [address] [place] [address] 11/28/2024 11:30 AM EDT Office Visit [facility] [address] [facility] [address] Brooke Pressley MD 299 [facility] [address] [place] [address] Kim Braun, PT 380 [place] [address] 05/10/2025 9:15 AM EDT Appointment [facility] - [address] [place] [address] Jessy Andersen FNP 73 [place] [address] documented as of this encounter Visit Diagnoses Not on filedocumented in this encounter Additional Health Concerns Infection Onset Date Last Indicated Resolved Time CoV-Risk 12/21/2021 12/21/2021 01/01/2022 1:22 AM EDT documented as of this encounter Care Teams Reconciliation Manager Relationship Specialty Start Date End Date Jacquelyn Chandler MD [address] [place] [address] PCP - General Internal Medicine 12/01/17 01/28/23 Jessy Andersen FNP [address] [place] [address] PCP - General Nurse Practitioner 01/29/23 documented as of this encounter Additional Source Comments The information contained in this document represents components of the legal health record. It is not the complete legal health record.[facility]
--- OUTSIDE RECORDS SUMMARY | 2024-11-22 15:30 | XMS_ITS | Encounter Summary ---
Author Organization [facility] Address [address] [place] [address] Phone Care Team Providers Care Production Finisher Name Role Phone Jacquelyn Chandler MD [facility] Primary Care Provide r Encounter Details Date Type Department Care Team (Late st Contact Info) Description 08/01/2021 Procedure Pass [address] [place] [address] Social History Tobacco Use Types Packs/Day Years [...] Contact Info) Description 09/28/2024 Procedure Pass [address] [place] [address] 11/28/2024 11:30 AM EDT Office Visit [facility] Rehabilitation [facility] [address] [place] [address] Brooke Pressley MD 299 [facility] [address] [place] [address] Kim Braun, PT 380 [place] [address] 05/10/2025 9:15 AM EDT Appointment [address] [place] [address] Jessy Andersen FNP 73 [place] [address] documented as of this encounter Visit Diagnoses Not on filedocumented in this encounter Additional Health Concerns Infection Onset Date Last Indicated Resolved Time CoV-Risk 12/21/2021 12/21/2021 01/01/2022 1:22 AM EDT Assessment Noted Time PHQ-2 Depression Total Score: 0 07/30/19 10:09 AM EDT documented as of this encounter Care Teams Production Finisher Relationship Specialty Start Date End Date Jacquelyn Chandler MD [address] [place] [address] [email or web address] PCP - General Internal Medicine 12/01/17 01/28/23 Jessy Andersen FNP [address] [place] [address] PCP - General Nurse Practitioner 01/29/23 documented as of this encounter Additional Source Comments The information contained in this document represents components of the legal health record. It is not the complete legal health record.[facility]
--- OUTSIDE RECORDS SUMMARY | 2024-11-22 15:31 | XMS_ITS | Encounter Summary ---
Author Organization [facility] Address [address] [place] [address] Phone Care Team Providers Care Procedure Tech Name Role Phone Jacquelyn Chandler MD Primary Care Provider [phone] [facility] Jessy Tyra [facility] Primary Care Provide r Encounter Details Date Type Department Care Team (Latest Contact Info) Description 02/03/2018 Transcribe Orders [facility] [address] [place] [address] Richa Leach, DONN 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 Not on file documented as of this encounter Plan of Treatment Upcoming Encounters Date Type Department Care Team (Late st Contact Info) Description 09/28/2024 Procedure Pass [address] [place] [address] 11/28/2024 11:30 AM EDT Office Visit [facility] Services [address] [place] [address] Brooke Pressley MD [address] [facility] [address] [place] [address] Kim Braun, PT [address] [place] [address] 05/10/2025 9:15 AM EDT Appointment [address] [place] [address] Jessy Andersen, GEOVANNA [address] [place] [address] documented as of this encounter Results * Immunoglobulin A (02/03/2018 8:43 AM EST) IgA 220 70 - 400 mg/dL [facility] Blood 02/03/2018 8:43 AM EST 02/03/2018 8:50 AM EST us Richa Leach PA-C LAB BLOOD ORDERABLES Final Resu lt Performing Organization Address [facility]/ZIP Co de Phone Number [facility] [address] [place] [address] * C-Reactive Protein (02/03/2018 8:43 AM EST) C REACTIVE PROTEIN 3.6 0.0 - 4.0 mg/L [facility] Blood 02/03/2018 8:43 AM EST 02/03/2018 8:50 AM EST us Richa Leach PA-C LAB BLOOD ORDERABLES Final Resu lt [address] [address] * Comprehensive metabolic panel (02/03/2018 8:43 AM EST) SODIUM 140 133 - 146 mmol/L [facility] POTASSIUM 4.3 3.3 - 5.1 mmol/L [facility] CHLORIDE 103 96 - 108 mmol/L [facility] CO2 25 21 - 35 mmol/L [facility] BUN 15 6 - 19 mg/dL [facility] CREATININE 1.00 0.5 - 1.5 mg/dL [facility] GLUCOSE 88 70 - 99 mg/dL [facility] ALBUMIN 4.5 3.9 - 4.8 g/dL [facility] TOTAL PROTEIN 8.0 6.5 - 8.0 g/dL [facility] CALCIUM 9.9 8.4 - 10.3 mg/dL [facility] ALKALINE PHOSPHATASE 67 39 - 117 U/L [facility] TOTAL BILIRUBIN 0.5 0.0 - 1.2 mg/dL [facility] AST 26 0 - 37 U/L [facility] ALT 28 0 - 40 U/L [facility] GLOBULIN 3.5 1 - 4.8 g/dL [facility] EGFR 61 >59 mL/min/1.7 3m2 [facility] Comment:If patient is black, multiply result by 1.159. Estimated glomerular filtration rate calculated using the CKD-EPI equation. ANION GAP 16 10 - 20 mmol/L [facility] Blood 02/03/2018 8:43 AM EST 02/03/2018 8:50 AM EST us Richa Leach PA-C LAB BLOOD ORDERABLES Final Resu lt [address] [address] * (ABNORMAL) CBC (02/03/2018 8:43 AM EST) WBC 5.96 3.40 - 11.20 K/uL [facility] RBC 4.86(H) 3.80 - 4.80 M/uL [facility] HGB 13.2 12.0 - 15.0 g/dL [facility] HCT 41.7 36.0 - 46.0 % [facility] PLT 274 130 - 400 K/uL [facility] MCV 85.8 79.0 - 98.0 fL [facility] MCH 27.2 27.0 - 34.8 pg [facility] MCHC 31.7 31.5 - 36.0 g/dL [facility] RDW 13.6 10.8 - 14.6 % [facility] MPV 11.7 9.4 - 12.4 [facility] NRBC 0.00 0.00 /100 WBCs [facility] ABSOLUTE NRBC 0.00 0.00 K/uL [facility] Blood 02/03/2018 8:43 AM EST 02/03/2018 8:50 AM EST Richa Leach PA-C LAB BLOOD ORDERABLES Final Resu lt Performing Organization Address City/State/[facility] Co de Phone Number [address] [address] documented in this encounter Visit Diagnoses Diagnosis Abdominal pain, unspecified abdominal location- Primary documented in this encounter Additional Health Concerns Infection Onset Date Last Indicated Resolved Time CoV-Risk 12/21/2021 12/21/2021 01/01/2022 1:22 AM EDT documented as of this encounter Care Teams Procedure Tech Relationship Specialty Start Date End Date Jacquelyn Chandler MD [address] [place] [address] [email or web address] PCP - General Internal Medicine 12/01/17 01/28/23 Jessy Andersen FNP [address] [place] [address] PCP - General Nurse Practitioner 01/29/23 documented as of this encounter Additional Source Comments The information contained in this document represents components of the legal health record. It is not the complete legal health record.[facility]
--- OUTSIDE RECORDS SUMMARY | 2024-11-22 15:31 | XMS_ITS | Encounter Summary ---
Author Organization [facility] Address [address] [facility] [address] [place] [address] Phone Care Team Providers Care Developmental Specialist Name Role Phone Rula Ramsey MD Primary Care Provider Jacquelyn Chandler MD Primary Care Provider [phone] [facility] Primary Care Provide r Encounter Details Date Type Department Care Team (Late st Contact Info) Description 07/14/2017 Transcribe Orders [facility] Specimen Processing 30 [place] [address] Karen Varela, [facility] [address] [facility], [address] [place] [address] [email or web address] Dysuria (Primary Dx) Social History Tobacco Use [...] (Late Contact Info) Description 09/28/2024 Procedure Pass [address] [place] [address] 11/28/2024 11:30 AM EDT Office Visit [facility] [address] [place] [address] Brooke Pressley MD [address] [facility] [address] [place] [address] Kim Braun, PT 380 [facility] [place] [address] 05/10/2025 9:15 AM EDT Appointment [address] [place] [address] Jessy Andersen, [employer] OFFICER [address] [place] [address] documented as of this encounter Results * (ABNORMAL) Urine culture (07/14/2017 8:30 AM EDT) Specimen Source/ Description URINE URINE [facility] Special Requests None [facility] GRAM STAIN Moderate WBC'S , NO ORGANISMS SEEN [facility] Culture/Test 10,000 to 100,000 colony forming units per ml ESCHERICHIA COLI(A) [facility] Report Status 07/16/2017 FINAL [facility] ORGANISM ESCHERICHIA COLI [facility] Urine (Urine) 07/14/2017 8:3 0 AM [...] lony forming units per ml ESCHERICHIA COLI Karen Varela [facility] MICROBIOLOGY - GENERAL O RDERABLES Final Result [address] [address] documented in this encounter Visit Diagnoses Diagnosis Dysuria- Primary documented in this encounter Additional Health Concerns Infection Onset Date Last Indicated Resolved Time CoV-Risk 12/21/2021 12/21/2021 01/01/2022 1:22 AM EDT documented as of this encounter Care Teams Developmental Specialist Relationship Specialty Start Date End Date Rula Ramsey MD [address] [place] [address], [address] [place] [address] PCP - General Internal Medicine 05/18/17 11/30/17 Jacquelyn Chandler MD [address] [place] [address] PCP - General Internal Medicine 12/01/17 01/28/23 [email or web address] [address] [place] [address] PCP - General Nurse Practitioner 01/29/23 documented as of this encounter Additional Source Comments The information contained in this document represents components of the legal health record. It is not the complete legal health record.[facility]
--- OUTSIDE RECORDS SUMMARY | 2024-11-22 15:31 | XMS_ITS | Encounter Summary ---
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 Not on file documented as of this encounter Plan of Treatment Upcoming Encounters Date Type Department Care Team (Late st Contact Info) Description 09/28/2024 Procedure Pass [place] [place] [address] 11/28/2024 11:30 AM EDT Office Visit [facility] [address] [place] [address] Brooke Pressley MD [address] [place] [address] Kim Braun, PT [address] [place] [address] [email or web address] 05/10/2025 9:15 AM EDT Appointment [address] [place] [address] Jessy Andersen, JIG BOX OPERATOR [address] [place] [address] documented as of this encounter Results * [...] documented as of this encounter Care Teams Wood Pile Driver Operator Relationship Specialty Start Date End Date Jacquelyn Chandler MD [address] [place] [address] PCP - General Internal Medicine 12/01/17 01/28/23 [email or web address] F[facility] [address] [place] [address] PCP - General Nurse Practitioner 01/29/23 documented as of this encounter Additional Source Comments The information contained in this document represents components of the legal health record. It is not the complete legal health record.[facility]
--- OUTSIDE RECORDS SUMMARY | 2024-11-22 15:31 | XMS_ITS | Encounter Summary ---
Author Organization [facility] Address [address] [place] [address] [place] [address] Phone Care Team Providers Care Pharmacognosist Name Role Phone Jacquelyn Chandler MD Primary Care Provider [facility] [place] Tyra [facility] Primary Care Provide r Encounter Details Date Type Department Care Team (Late st Contact Info) Description 04/29/2018 Ancillary Orders [facility], X-Ray - [address] [place] [address] Jacquelyn Chandler MD [address] [place] [address] [email or web address] Cervicalgia Social History Tobacco Use Types Packs/Day [...] 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 file documented as of this encounter Plan of Treatment Upcoming Encounters Date Type Department Care Team (Late st Contact Info) Description 09/28/2024 Procedure Pass [address] [place] [address] 11/28/2024 11:30 AM EDT Office Visit [facility] [address] [facility] [place] [address] Brooke Pressley MD [address] [facility] [address] [place] [address] Kim Braun, PT 380 [place] [address] 05/10/2025 9:15 AM EDT Appointment [address] [place] [address] Jessy Andersen, APPRENTICE PAINTER NECKTIES 73 [place] [address] documented as of this encounter Results * XR CERVICAL SPINE 4-5 VIEWS (04/29/2018 11:11 AM EST) Anatomical Region Laterality Modality C-spine Radiographic Yolie ging 04/29/2018 11:5 4 AM EST Impressions 04/29/2018 11:56 AM EST Mild discogenic endplate changes C5-T1. Normal cervical spine alignment. POS - [id number] Narrative 04/29/2018 11:56 AM EST XR CERVICAL [...] C5-T1. Normal cervical spine alignment. POS - [id number] Jacquelyn Chandler MD IMG XR SPINE Final Result documented in this encounter Visit Diagnoses Diagnosis Cervicalgia Cervicalgia documented in this encounter Additional Health Concerns Infection Onset Date Last Indicated Resolved Time CoV-Risk 12/21/2021 12/21/2021 01/01/2022 1:22 AM EDT documented as of this encounter Care Teams Pharmacognosist Relationship Specialty Start Date End Date Jacquelyn Chandler MD [address] [place] [address] [email or web address] PCP - General Internal Medicine 12/01/17 01/28/23 [facility] GEOVANNA Mcgraw [address] [place] [address] PCP - General Nurse Practitioner 01/29/23 documented as of this encounter Additional Source Comments The information contained in this document represents components of the legal health record. It is not the complete legal health record.[facility]
--- OUTSIDE RECORDS SUMMARY | 2024-11-22 15:31 | XMS_ITS | Encounter Summary ---
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 file documented as of this encounter Plan of Treatment Upcoming Encounters Date Type Department Care Team (Late Contact Info) Description 09/28/2024 Procedure Pass [facility] - [address] [place] [address] 11/28/2024 11:30 AM EDT Office Visit [facility] [address] [place] [address] Brooke Pressley MD [address] [facility] [address] [place] [address] Kim Braun, PT [address] [place] [address] 05/10/2025 9:15 AM EDT Appointment [address] [place] [address] Jessy Andersen FNP [address] [place] [address] documented as of this encounter Results * [...] documented as of this encounter Care Teams Battalion Chief Relationship Specialty Start Date End Date Jacquelyn Chandler MD [address] [place] [address] [email or web address] PCP - General Internal Medicine 12/01/17 01/28/23 Jessy Andersen FNP [address] [place] [address] PCP - General Nurse Practitioner 01/29/23 documented as of this encounter Additional Source Comments The information contained in this document represents components of the legal health record. It is not the complete legal health record.[facility]
--- OUTSIDE RECORDS SUMMARY | 2024-11-22 15:31 | XMS_ITS | Encounter Summary ---
Author Organization [facility] Address [address] [place] [address] Phone Care Team Providers Care Operations And Maintenance Technican Name Role Phone Jacquelyn Chandler MD Primary Care Provider [place], [place] Tyra [facility] Primary Care Provide r Encounter Details Date Type Department Care Team (Late st Contact Info) Description 05/10/2020 Ancillary Orders Virtual Department 30 [place] [address] Jacquelyn Chandler MD [address] [place] [address] [email or web address] Pain in finger of left hand Social [...] st Contact Info) Description 09/28/2024 Procedure Pass [place] [address] [place] [address] 11/28/2024 11:30 AM EDT Office Visit [facility] [address] [place] [address] Brooke Pressley MD [address] [facility] [address] [place] [address] Kim Braun, PT 380 [place] [address] 05/10/2025 9:15 AM EDT Appointment [address] [place] [address] Jessy Andersen, CITY LIBRARY DIRECTOR [address] [place] [address] documented as of this encounter Results * [...] avulsion at the PIP joint. POS [id number] us Jacquelyn Chandler MD IMG XR UPPER EXTREMITY [...] documented as of this encounter Care Teams Operations And Maintenance Technican Relationship Specialty Start Date End Date Jacquelyn Chandler MD [address] [place] [address] PCP - General Internal Medicine 12/01/17 01/28/23 [facility] [address] [place] [address] PCP - General Nurse Practitioner 01/29/23 documented as of this encounter Additional Source Comments The information contained in this document represents components of the legal health record. It is not the complete legal health record.[facility]
--- OUTSIDE RECORDS SUMMARY | 2024-11-22 15:31 | XMS_ITS | Encounter Summary ---
Author Organization [facility] Address [address] [place] [address] Phone Care Team Providers Care Online Trader Name Role Phone Jacquelyn Chandler MD Primary Care Provider [facility] [place] Tyra [facility] Primary Care Provide r Encounter Details Date Type Department Care Team (Late st Contact Info) Description 03/29/2018 Ancillary Orders Virtual Department 30 [place] [address] Jacquelyn Chandler MD [address] [place] [address] [email or web address] Low back pain, unspecified back pain laterality, [...] 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 Not on file Not on file documented as of this encounter Plan of Treatment Upcoming Encounters Date Type Department Care Team (Late st Contact Info) Description 09/28/2024 Procedure Pass [address] [place] [address] 11/28/2024 11:30 AM EDT Office Visit [facility] [address] [place] [address] Brooke Pressley MD 299 [facility] [address] [place] [address] Kim Braun, PT [address] [place] [address] [email or web address] 05/10/2025 9:15 AM EDT Appointment [address] [place] [address] Jessy Andersen, GEOVANNA [address] [place] [address] documented as of this encounter Results * XR Knee Standing (Bilateral, Single View Only) (03/29/2018 3:48 PM EST) Anatomical Region Laterality Modality Knee Right, Knee Bilateral Radio graphic Imaging 03/29/2018 4:09 PM EST Impressions 03/29/2018 4:12 PM EST Mild degenerative changes bilaterally. Chondrocalcinosis. POS - [id number] Narrative 03/29/2018 4:12 PM EST HISTORY: Right [...] and calcification of the menisci. Procedure Note Polino, Seth R, MD - 03/29/2018 HISTORY: Right knee pain. [...] Mild degenerative changes bilaterally. Chondrocalcinosis. POS - [id number] Jacquelyn Chandler MD IMG XR LOWER EXTREMITY [...] as of this encounter Care Teams Online Trader Relationship Specialty Start Date End Date Jacquelyn Chandler MD [address] [place] [address] PCP - General Internal Medicine 12/01/17 01/28/23 Jessy Andersen FNP [address] [place] [address] PCP - General Nurse Practitioner 01/29/23 documented as of this encounter Additional Source Comments The information contained in this document represents components of the legal health record. It is not the complete legal health record.[facility]
--- OUTSIDE RECORDS SUMMARY | 2024-11-22 15:31 | XMS_ITS | Encounter Summary ---
Author Organization [facility] Address [address] [place] [address] Phone Care Team Providers Care Studio Producer Name Role Phone Jacquelyn Chandler MD Primary Care Provider [facility] Jessy Tyra [facility] Primary Care Provide r Encounter Details Date Type Department Care Team (Latest Contact Info) Description 03/13/2020 Transcribe Orders [address] [place] [address] Jacquelyn Chandler MD 25 [place] [address] [email or web address] Hyperlipidemia, unspecified hyperlipidemia type (Primary Dx); Hypertension, [...] st Contact Info) Description 09/28/2024 Procedure Pass [address] [place] [address] 11/28/2024 11:30 AM EDT Office Visit [facility] [address] [place] [address] Brooke Pressley MD [address] [facility] [address] [place] [address] Kim Braun, PT 380 [place] [address] 05/10/2025 9:15 AM EDT Appointment [address] [place] [address] Jessy Andersen, CLIENT TECHNICAL PROFESSIONAL [address] [place] [address] documented as of this encounter Results * (ABNORMAL) LFTs (hepatic panel) (03/13/2020 10:40 AM EST) ALKALINE PHOSPHATASE 73 39 - 117 U/L [facility] TOTAL BILIRUBIN 0.5 0.0 - 1.2 mg/dL [facility] DIRECT BILIRUBIN <0.2 0 - 0.3 mg/dL [facility] Bilirubin (Indirect) NOT CALCULATED 0 - 1.5 mg/dL [facility] AST 25 0 - 37 U/L [facility] ALT 15 0 - 40 U/L [facility] TOTAL PROTEIN 8.1(H) 6.5 - 8.0 g/dL [facility] ALBUMIN 4.5 3.9 - 4.8 g/dL [facility] GLOBULIN 3.6 1 - 4.8 g/dL [facility] A/G Ratio 1.25 1.00 - 4.80 RATIO [facility] Blood 03/13/2020 10:4 0 AM EST 03/13/2020 10:48 AM EST us Jacquelyn Chandler MD LAB BLOOD ORDERABLES Final R esult [address] [address] * (ABNORMAL) 25-OH vitamin D (03/13/2020 10:40 AM EST) 25 OH VIT D (TOTAL) 24(L) 30 - 60 ng/mL [facility] Blood 03/13/2020 10:4 0 AM EST 03/13/2020 10:48 AM EST Jacquelyn Chandler MD LAB BLOOD ORDERABLES Final R esult Performing Organization Address City/[facility]/ZIP Co de Phone Number [address] [address] * (ABNORMAL) CBC (03/13/2020 10:40 AM EST) WBC 4.81 4.00 - 11.00 K/uL [facility] Comment:Note Reference Range updates to all CBC and Differential results. RBC 4.77 3.72 - 5.30 M/uL [facility] HGB 13.0 11.4 - 15.9 g/dL [facility] Comment:Note updated Referen ce Ranges for all CBC and Differential results. HCT 41.2 34.2 - 46.8 % [facility] PLT 274 140 - 430 K/uL [facility] MCV 86.4 78.0 - 97.0 fL [facility] MCH 27.3 25.0 - 33.0 pg [facility] MCHC 31.6(L) 32.0 - 36.0 g/dL [facility] RDW 13.2 11.0 - 16.0 % [facility] MPV 10.7 8.4 - 12.8 [facility] NRBC 0.00 0 /100 WBCs [facility] ABSOLUTE NRBC 0.00 0 K/uL [facility] Blood 03/13/2020 10:4 0 AM EST 03/13/2020 10:48 AM EST us Jacquelyn Chandler MD LAB BLOOD ORDERABLES Final R [facility] Performing Organization Address City/[facility]/ZIP Co de Phone Number [address] [address] * Basic metabolic panel (03/13/2020 10:40 AM EST) SODIUM 142 133 - 146 mmol/L [facility] CHLORIDE 104 96 - 108 mmol/L [facility] POTASSIUM 4.3 3.3 - 5.1 mmol/L [facility] CO2 28 21 - 35 mmol/L [facility] BUN 19 6 - 19 mg/dL [facility] CREATININE 1.00 0.5 - 1.5 mg/dL [facility] GLUCOSE 96 70 - 99 mg/dL [facility] CALCIUM 10.1 8.4 - 10.3 mg/dL [facility] EGFR 60 >59 mL/min/1.7 3m2 [facility] Comment:Estimated glomerular filtration rate calculated using the CKD-EPI equation. ANION GAP 14 10 - 20 mmol/L [facility] Blood 03/13/2020 10:4 0 AM EST 03/13/2020 10:48 AM EST Jacquelyn Chandler MD LAB BLOOD ORDERABLES Final [facility] Performing Organization Address [facility] Co de Phone Number [address] [address] * (ABNORMAL) Lipid panel (03/13/2020 10:40 AM EST) HDL 50 mg/dL [facility] Comment: Interpretation <40 mg/dL: Low HDL cholesterol (major risk factor for CHD) Greater than or equal to 60 mg/dL: High HDL cholesterol ( negative risk factor for CHD) HDL - cholesterol is affected by a number of factors, e.g. smoking, excerise, hormones, sex and age. CHOLESTEROL 229 0 - 240 mg/dL [facility] TRIGLYCERIDES 115 30 - 160 mg/dL [facility] LDL 156(H) 50 - 129 mg/dL [facility] Comment: LDL levels in terms of risk for coronary heart disease: <100 mg/dL: Optimal 100-129 mg/dL: Near or above optimal 130-159 mg/dL: Borderline high 160-189 mg/dL: High >190 mg/dL: Very High CARDIAC RISK RATIO 4.6(H) 3.3 - 4.4 C [facility] Blood 03/13/2020 10:4 0 AM EST 03/13/2020 10:48 AM EST us Jacquelyn Chandler MD LAB BLOOD ORDERABLES Final R esult [facility] [address] [place] [address] documented in this encounter Visit Diagnoses Diagnosis Hyperlipidemia, unspecified hyperlipidemia type- Primary Hypertension, unspecified type Vitamin D deficiency, unspecified Nonspecific elevation of levels of transaminase or lactic acid dehydrogenase (LDH) documented in this encounter Additional Health Concerns Infection Onset Date Last Indicated Resolved Time CoV-Risk 12/21/2021 12/21/2021 01/01/2022 1:22 AM EDT documented as of this encounter Care Teams Studio Producer Relationship Specialty Start Date End Date Jacquelyn Chandler MD [address] [place] [address] [email or web address] PCP - General Internal Medicine 12/01/17 01/28/23 Jessy Andersen FNP [address] [place] [address] PCP - General Nurse Practitioner 01/29/23 documented as of this encounter Additional Source Comments The information contained in this document represents components of the legal health record. It is not the complete legal health record.[facility]
== END 2024-11-22 12:35 | disposition home or self-care (01) ==
LOC: HO.RESP 12:34
PROVIDERS: PCP Nurse Practitioner; Visit Provider Hospitalist
DX: J45.20 Mild intermittent asthma, uncomplicated (principal)
CPT/HCPCS: 94010; 94640; 94727; 94729

== ENCOUNTER → 2024-11-22 12:52 | Outpatient (BNV) | payer OTHER, SELFPAY | PROVIDERS: PCP Nurse Practitioner; Visit Provider Internal Medicine Pulmonary Disease | DX: J45.20 Mild intermittent asthma, uncomplicated (principal) | CPT/HCPCS: 94060; 94727; 94729 ==

== ENCOUNTER 2024-12-26 14:19 | Outpatient (AMB) | payer OTHER, SELFPAY ==
--- OUTSIDE RECORDS SUMMARY | 2024-12-22 11:40 | XMS_ITS | Encounter Summary ---
Author Organization [employer] Address [address] [facility] 7t [place] [address] Care Team Providers Care Instructional Technology Director Name Role Phone [facility] Primary Care Provider [phone] Reason for Visit * Reason Comments Follow-up Patient present in o ffice for f/u. Patient went to [facility] last , was tested for covid/flu/RSV due to having cold. All tests were negative. Patient had chest xray as well - no abnormalities. Patient is still feeling sick. Encounter Details Date Type Department Care Team (Late st Contact Info) Description 12/22/2024 11:40 AM EDT Office Visit [facility] [address] [place] [address] [facility] [address] [place] [address] Acute non-recurrent sinusitis, unspecified location (Primary Dx); Hordeolum externum of right lower eyelid; Moderate persistent asthma with acute exacerbation Social History Tobacco Use Types Packs/Day Years [...] PM EDT documented as of this encounter Last Filed Vital Signs Vital Sign Reading Time Taken Comments Blood Pressure 162/82 12/22/2024 11:46 AM EDT Pulse 80 12/22/2024 11:46 AM EDT Temperature 37 C (98.6 F) 12/22/2024 11:46 AM EDT Respiratory Rate - - Oxygen Saturation 95% 12/22/2024 11:46 AM EDT Inhaled Oxygen Concentration - - Weight 74.8 kg (165 lb) 12/22/2024 11:46 AM EDT Height 162.6 cm (5' 4 ) 12/22/2024 11:46 AM EDT Body Mass Index 28.32 12/22/2024 11:46 AM EDT documented in this encounter Progress Notes * Jessy Andersen, GEOVANNA - 12/22/2024 11:40 AM EDT Danette Burnett 1955 [id number] Chief complaint: Follow-up (Patient present in office for f/u. Patient went to [facility] last , was tested for covid/flu/RSV due to having cold. All tests were negative. Patient had chest xray as well - no abnormalities. Patient is still feeling sick. ) HPI: Danette Burnett, age 69, female, here for sick visit. Symptoms began approximately 15 days ago. Persistent cough, headache, sinus congestion with pain in the sinuses and ears. On 12/16/2024, she visited urgent care where flu, COVID, and strep tests were negative and chest x-ray was normal. She received Tessalon pearls for cough, prednisone 40 mg for 5 days, and albuterol inhaler, which caused palpitations. She used Tessalon pearls for three days but discontinued due to ongoing cough. She prednisone caused tachycardia, so she stopped it. She reports use of Singulair, Benadryl, and Claritin for allergies. Bump on right lower eyelid for a few days. Symptoms feel similar to past sinus infection. She reports previous side effects to Augmentin and tolerability of doxycycline. She is seeing pulmonolgy at [facility]. She is using an inhaler, can't remember the name of it. Needs to mask for nebulizer. Current Outpatient Medications on File Prior to Visit Medication Sig Dispense Refill acetaminophen (Tylenol) 500 MG tablet Take 1,000 mg by mouth if needed in the morning, at noon, andat bedtime. albuterol 108 (90 Base) MCG/ACT inhaler TAKE 2 PUFFS BY MOUTH EVERY 6 HOURS NEEDED Aspirin Low Dose 81 MG EC tablet TAKE 1 TABLET (81 MG) BY MOUTH IN THE MORNING 90 tablet 3 atorvastatin (Lipitor) 20 MG tablet TAKE 1 TABLET BY MOUTH AT BEDTIME 90 tablet 3 cholecalciferol (Vitamin D3) 200 Unit tablet split tablet TAKE 1 CAPSULE BY MOUTH EVERY DAY ciclopirox (Penlac) 8 % solution Apply topically daily. Diclofenac Sodium 1 % gel APPLY 4 GRAMS TO EACH KNEE UP TO 4 TIMES DAILY NEEDED dicyclomine (Bentyl) 10 MG capsule Take 10 mg by mouth if needed in the morning and at bedtime. famotidine (Pepcid) 40 MG tablet TAKE 1 TABLET BY MOUTH EVERYDAY AT BEDTIME ORALLY ONCE A DAY 30 DAYS fluticasone (Flonase) 50 MCG/ACT nasal spray ADMINISTER 1 SPRAY INTO EACH NOSTRIL ONCE PER DAY. SHAKE GENTLY. CLEAN TIP AND REPLACE CAP. 48 mL 1 ipratropium-albuterol (Duo-Neb) 0.5-2.5 mg/3 mL nebulizer solution Take 3 mL by nebulization if needed in the morning, at noon, in the evening, and at bedtime for wheezing. 180 mL 0 montelukast (Singulair) 10 MG tablet Take 10 mg by mouth in the morning. nabumetone (Relafen) 500 MG tablet TAKE 1 TABLET (500 MG) BY MOUTH ONCE PER DAY. TAKE WITH FOOD 90 tablet 0 Nebulizer misc 1 Units if needed (asthma). 1 each 0 [DISCONTINUED] Respiratory Therapy Supplies (Nebulizer Mask Adult/Tubing) misc 1 Units Every 4-6 hours as needed (asthma). 1 each 0 [DISCONTINUED] fluticasone (Flonase) 50 MCG/ACT nasal spray ADMINISTER 1 SPRAY INTO EACH NOSTRIL ONCE PER DAY. SHAKE GENTLY. CLEAN TIP AND REPLACE CAP. 48 mL 1 No current facility-administered medications on file prior to visit. Allergies Allergen Reactions Augmentin [Amoxicillin-Pot Clavulanate] Dizziness, Nausea and Vomiting PAST MEDICAL, SURGICAL, SOCIAL AND FAMILY HISTORY: Reviewed and updated MEDICATIONS AND ALLERGIES: Reviewed and updated Patient Active Problem List Diagnosis Atherosclerosis of coronary artery of [place] heart Degenerative disc disease, lumbar Hyperlipidemia Mild persistent asthma without complication Primary osteoarthritis of both knees TIA (transient ischemic attack) Primary osteoarthritis of both hips Chronic bilateral low back pain without sciatica Gastroesophageal reflux disease with esophagitis without hemorrhage Fibromyalgia Elevated rheumatoid factor Hepatic steatosis ILD (interstitial lung disease) (CMS/HCC) (HCC) Review of Symptoms: Review of Systems Constitutional: Negative for chills and fever. HENT: Positive for ear pain, postnasal drip, sinus pressure and sinus pain. Negative for sore throat. Respiratory: Positive for cough. Negative for shortness of breath and wheezing. Cardiovascular: Positive for palpitations. Negative for chest pain. Neurological: Negative for dizziness, syncope, weakness and headaches. PHYSICAL EXAMINATION: BP (!) 162/82 (BP Location: Right arm, Patient Position: Sitting, BP Cuff Size: Adult) Pulse 80 Temp 98.6 ??F (37 ??C) (Temporal) Ht 5' 4 (1.626 m) Wt 165 lb (74.8 kg) SpO2 95% BMI 28.32kg/m?? Constitutional: Alert, in no acute distress, Normal appearance. HEENT: Eyes: Conjunctivae normal. style right lower eyelid Right Ear: Tympanic membrane, ear canal and external ear normal. Left Ear: Tympanic membrane, ear canal and external ear normal. Nose: congestion. sinuses tender Mouth/Throat: Mouth: Mucous membranes are moist. No oral lesions. Pharynx: Uvula midline. No oropharyngeal exudate or posterior oropharyngeal erythema. Neck: No cervical adenopathy. Cardiovascular: Normal rate and regular rhythm Pulmonary: Pulmonary effort is normal, Normal breath sounds and air entry. Neurological: No focal deficit present, Alert, Speech is normal, Gait is intact. RESULTS: - Flu test on 12/16/2024: negative - COVID-19 test on 12/16/2024: negative - Strep test on 12/16/2024: negative - Chest X-ray on 12/16/2024: no evidence of pneumonia ASSESSMENT AND PLAN: Acute non-recurrent sinusitis, unspecified location: - Sinusitis, due to persistent symptoms, bacterial etiology considered. - Prescribed doxycycline for 7 days, twice daily. Hordeolum externum of right lower eyelid:. - Recommended warm compress to affected eyelid. If not resolving, may consider antibiotic ointment. Moderate persistent asthma with acute exacerbation: - Asthma exacerbation noted, with recent use of albuterol and inhalers. Palpitations likely secondary to albuterol use and prednisone - No wheezing on exam. oxygen normal. - Will send prescription for mask and tubing for nebulizer to [facility]. - Advised to use inhaler as prescribed by dowel sticker operator and monitor symptoms. Continue Singulair. - If symptoms persist, contact dowel sticker operator for earlier appointment. New Medications Ordered This Visit Medications Respiratory Therapy Supplies (Nebulizer Mask Adult/Tubing) [facility] Si Units Every 4-6 hours as needed (asthma). Dispense: 1 each Refill: 0 doxycycline (Vibramycin) 100 MG capsule Sig: Take 1 capsule (100 mg) by mouth 2 times daily for 7 days. Take with at least 8 ounces (large glass) of water, do not lie down for 30 minutes after Dispense: 14 capsule Refill: 0 Medications Discontinued During This Encounter Medication Reason Respiratory Therapy Supplies (Nebulizer Mask Adult/Tubing) [facility] Follow up in about 3 months (around 03/24/2025) for In person follow up, w/ VF chronic care. Jessy Andersen, MSN, DOCUMENTATION ANALYST-C [address], [place] [address] This note was drafted using [employer] ([employer]) technology. The patient/patient's guardian has been informed and has consented to the use of this technology: Yes documented in this encounter Plan of Treatment Upcoming Encounters Date Type Department Care Team (Late st Contact Info) Description 03/24/2025 11:40 AM EST Office Visit [facility] [address] [place] [id number] Jessy Andersen FNP [address] [facility] [place] [id number] documented as of this encounter Visit Diagnoses Diagnosis Acute non-recurrent sinusitis, unspecified location- Primary Hordeolum externum of right lower eyelid Moderate persistent asthma with acute exacerbation documented in this encounter Care Teams Instructional Technology Director Relationship Specialty Start Date End Date Jessy Andersen FNP [address] [facility] [place] [id number] PCP - General Family Medicine 10/01/22 documented as of this encounter
--- NOTE | 2024-12-26 14:21 | MHC.OFFVIS ---
Vital Signs 12/26/24 14:22 Height 5 ft 5 in Weight 168 lb 6 oz BMI 28.0 BP 128/72 Blood Pressure Location Rt brachial Position Sitting Pulse 82 Pulse Source Pulse Oximeter Pulse Oximetry (%) 97 Oxygen Delivery Method Room Air Intake Visit Reasons: 4 mo follow up Intake Note: Follow up Cognitive impairment, snoring and hypersomnia Facsimile Operator Required: No Accompanied by: Son Allergies No Known Allergies Allergy (Verified 12/26/24 14:22) Medication List - Last Reconciled 12/26/24 by Brooke Pressley MD acetaminophen 1,000 mg PO TID PRN albuterol sulfate 90 mcg/actuation (ProAir HFA) 2 puffs inhalation Q6H PRN aspirin 81 mg PO DAILY atorvastatin 20 mg PO BEDTIME cholecalciferol (vitamin D3) 50 mcg PO DAILY dicyclomine 20 mg PO DAILY PRN famotidine 40 mg PO BEDTIME fluticasone propionate 50 mcg/actuation 2 sprays intranasal DAILY ipratropium-albuterol 0.5 mg-3 mg(2.5 mg base)/3 mL 3 mL inhalation Q6H PRN montelukast 10 mg PO DAILY nabumetone 500 mg PO QAM HPI Comments Details: 69y/o female comes for follow up of memory issues, gait instability and tremors. Her memory is the same Gait is better with PT HST was incconlusive. History form initial visit 07/2024-she started noticing short term memory issues- more than 3 years ago.she has word recall difficulties. It is progressively worse in the past few years. she frequently jiménez her food so she is not cooking any more, she misplaces things and loses things etc. Driving is Ok for familiar places. she has trouble remembering names . she reports multiple mild head injuries since childhood mood is stable SLeep- ok , has loud snoring . No known family h/o dementia Tremors- she reports feeling inner tremors 2 years ago.she packer snot see tremors in her hands but feels like her whole body is shaking inside.The tremors are intermittent but no triggering effects. she feels it mostly when she is sitting. Gait difficulty- she feels like she is off balance and feels she goes to side. No falls.she has chronic back pain. [facility] Medical History Asthma ILD (interstitial lung disease) Gait instability Hypersomnia Snoring Cognitive impairment Surgical History S/P cardiac cath History of ear surgery History of section History of tonsillectomy History of cardiac cath Family History Mother Heart disease Cancer Father Stroke Social History Household Members: Children Household Members Other:: Son Alcohol intake: never Patient Tobacco Use Status: Never used Tobacco Current occupational status: retired Physical Exam Vital Signs: Last Vital Signs Pulse 82 12/26/24 14:22 BP 128/72 12/26/24 14:22 Pulse Ox 97 12/26/24 14:22 Oxygen Delivery Method Room Air 12/26/24 14:22 BMI result Body Mass Index 28.0 Const General: cooperative, healthy appearing, comfortable and no acute distress Nutritional Appearance: average body habitus Orientation/consciousness: patient oriented x3 Eyes Pupils: Equal, round and reactive pupils present Neuro General: patient oriented x3, gait normal, tone normal, moves all extremities and no focal motor deficits Cranial nerves: Yes Facial sensation intact/muscles of mastication intact, Yes Equal, round and reactive pupils present, Yes Nystagmus not present, Yes Normal facial strength present, Yes Midline tongue present, Yes Symmetric palate elevation present and Yes Ability to bilaterally elevate shoulders present Cognition (Neuro): normal cognition Gait exam (Neuro): Normal gait present Motor exam (neuro): 5/5 motor strength present throughout and Normal motor muscle tone present throughout Coordination: [id number] test normal Assessment & Plan Assessment & Plan (1) Cognitive impairment: Comment: ? stress ? mild cognitive impairment Code(s): R41.89 - Other symptoms and signs involving cognitive functions and awareness Category: Medical Plan MRI brain results reviewed- mild white matter Check B12 TSH Vit D ESR CBC CMP- positive NEGAR Cognitive evaluation and therapy- did not have it yet PT gait- helped and doing the exercises at home HST was inconclusive. F/u clinically Coding Level of Care Code Est Pt Level 4 (59039) Complex EM visit Add On G2211 Diagnoses Cognitive impairment R41.89
[2024-12-26 14:22] VITALS: BP 128/72; PULSE 82; O2SAT 97; BMI 28.0
--- OUTSIDE RECORDS SUMMARY | 2024-12-26 17:56 | XMS_ITS | Encounter Summary ---
Author Organization [facility] Address [address] [place] [address] [place] [phone] Phone Care Team Providers Care Shoe Salesperson Name Role Phone Jacquelyn Chandler MD Primary [facility] Provider [facility] WINDCHILL ADMINISTRATOR Primary Care Provider [facility] WINDCHILL ADMINISTRATOR Primary Care Provider Encounter Details Date Type Department Care Team (Late st Contact Info) Description 04/29/2018 Transcribe Orders [address] [place] [address] Jacquelyn Chandler MD [address] [place] [phone] [email or web address] Central perforation of tympanic membrane of right [...] 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[place] Not on file Not on file Not on file documented as of this encounter Plan of Treatment Upcoming Encounters Date Type Department Care Team (Late st Contact Info) Description 09/28/2024 Procedure Pass [address] [place] [address] 01/23/2025 2:45 PM EST Office Visit [facility] [address] [place] [address] Unknown, Unknown, Nat Marquez PA-C [address] [address] 05/10/2025 9:15 AM EDT Appointment [address] [place] [address] Jessy Andersen, MABIKA [address] [place] [address] documented as of this encounter Results * CBC and differential (04/29/2018 11:30 AM EST) WBC 5.51 3.40 - 11.20 K/uL [facility] RBC 4.80 3.80 - 4.80 M/uL [facility] HGB 13.1 12.0 - 15.0 g/dL [facility] HCT 40.2 36.0 - 46.0 % [facility] PLT 294 130 - 400 K/uL [facility] MCV 83.8 79.0 - 98.0 [facility] MCH 27.3 27.0 - 34.8 pg [facility] MCHC 32.6 31.5 - 36.0 g/dL [facility] RDW 13.1 10.8 - 14.6 % [facility] MPV 11.0 9.4 - 12.4 [facility] NRBC 0.00 0.00 /100 WBCs [facility] ABSOLUTE NRBC 0.00 0.00 K/uL [facility] DIFF METHOD Auto [facility] NEUTS 54.6 45.30 - 77.70 % [facility] LYMPHS 35.9 12.30 - 39.70 % [facility] MONOS 6.0 4.10 - 12.80 % [facility] EOS 2.4 0 - 7.2 % [facility] BASOS 0.9 0 - 2.80 % [facility] Granulocytes, immature (%) 0.2 0.0 - 0.9 % [facility] ABSOLUTE NEUTS 3.01 1.40 - 7.70 K/uL [facility] ABSOLUTE LYMPHS 1.98 0.60 - 3.20 K/uL [facility] ABSOLUTE MONOS 0.33 0.11 - 0.59 K/uL [facility] ABSOLUTE EOS 0.13 0.01 - 0.50 K/uL [facility] ABSOLUTE BASOS 0.05 0.00 - 0.08 K/uL [facility] Granulocytes, immature 0.01 0.00 - 0.05 K/uL [facility] Blood 04/29/2018 11:3 0 AM EST 04/29/2018 11:37 AM EST Jacquelyn Chandler MD LAB BLOOD ORDERABLES Final R esult [facility] [address] [place], [place] [id number] * Basic metabolic panel (04/29/2018 11:30 AM EST) SODIUM 137 133 - 146 mmol/L [facility] CHLORIDE 101 96 - 108 mmol/L [facility] POTASSIUM 4.6 3.3 - 5.1 mmol/L [facility] CO2 29 21 - 35 mmol/L [facility] BUN 17 6 - 19 mg/dL [facility] CREATININE 0.90 0.5 - 1.5 mg/dL [facility] GLUCOSE 88 70 - 99 mg/dL [facility] CALCIUM 9.6 8.4 - 10.3 mg/dL [facility] EGFR 69 >59 mL/min/1.7 3m2 [facility] Comment:If patient is black, multiply result by 1.159. Estimated glomerular filtration rate calculated using the CKD-EPI equation. 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- Primary documented in this encounter Additional Health Concerns Infection Onset Date Last Indicated Resolved Time CoV-Risk 12/21/2021 12/21/2021 01/01/2022 1:22 AM EDT documented as of this encounter Care Teams Shoe Salesperson Relationship Specialty Start Date End Date Jacquelyn Chandler MD [address] [place] [phone] [email or web address] PCP - General Internal Medicine 12/01/17 01/28/23 Jessy Andersen NP [address] [place] [phone] PCP - General Nurse Practitioner 01/29/23 [facility] [address] [place] [phone] PCP - General Nurse Practitioner 12/16/24 documented as of this encounter Additional Source Comments The information contained in this document represents components of the legal health record. It is not the complete legal health record.[facility]
--- OUTSIDE RECORDS SUMMARY | 2024-12-26 17:56 | XMS_ITS | Encounter Summary ---
Author Organization [facility] Address [address] [facility] [address] [place] [address] Phone Care Team Providers Care Cattle Sticker Name Role Phone Jacquelyn Chandler MD Primary Care Provider Jessy Andersen CLOTH PIECER Primary Care Provider Jessy Andersen CLOTH PIECER Primary Care Provider Encounter Details Date Type Department Care Team (Late st Contact Info) Description 06/24/2018 Ancillary Orders [facility], X-Ray - [address] [place] [address] Cammie Rodriguez, PATamraC [address] [facility], [address] [place] [address] [email or web address] Left foot pain Social History [...] 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 Not on file Not on file documented as of this encounter Plan of Treatment Upcoming Encounters Date Type Department Care Team (Late st Contact Info) Description 09/28/2024 Procedure Pass [address] [place] [address] 01/23/2025 2:45 PM EST Office Visit [facility] [address] [place] [address] Unknown, Unknown, Nat Marquez PA-C [address] [address] 05/10/2025 9:15 AM EDT Appointment [address] [place] [address] Jessy Andersen, AMBIKA [address] [place] [address] documented as of this encounter Results * XR FOOT 3 OR MORE VIEWS (LEFT) (06/24/2018 10:30 AM EDT) Anatomical Region Laterality Modality Foot Left Radiographic Yolie ging 06/24/2018 12:3 4 PM EDT Impressions 06/24/2018 3:12 PM EDT Calcaneal spurring and ligamentous calcification. No fracture or dislocation. POS - [id number] Narrative 06/24/2018 3:12 PM EDT XR FOOT [...] calcification. No fracture or dislocation. POS - [id number] Cammie Rodriguez PA-C IMG XR LOWER EXTREMITY Final Result documented in this encounter Visit Diagnoses Diagnosis Left foot pain Pain in soft tissues of limb Left foot pain Pain in soft tissues of limb documented in this encounter Additional Health Concerns Infection Onset Date Last Indicated Resolved Time CoV-Risk 12/21/2021 12/21/2021 01/01/2022 1:22 AM EDT documented as of this encounter Care Teams Cattle Sticker Relationship Specialty Start Date End Date Jacquelyn Chandler MD [address] [place] [phone] [email or web address] PCP - General Internal Medicine 12/01/17 01/28/23 [facility] Jessy Mary NP [address] [place] [phone] PCP - General Nurse Practitioner 01/29/23 12/15/24 Jessy Andersen NP [address] [place] [phone] PCP - General Nurse Practitioner 12/16/24 documented as of this encounter Additional Source Comments The information contained in this document represents components of the legal health record. It is not the complete legal health record.[facility]
--- OUTSIDE RECORDS SUMMARY | 2024-12-26 17:56 | XMS_ITS | Encounter Summary ---
Author Organization [facility] Address [address] [place] [address] [place] [address] Phone Care Team Providers Care Vehicle Refinisher Name Role Phone Jacquelyn Chandler MD Primary Care Provider Jessy Andersen INGOT WEIGHER Primary Care Provider Jessy Andersen INGOT WEIGHER Primary Care Provider Encounter Details Date Type Department Care Team (Latest Contact Info) Description 10/04/2018 Transcribe Orders [facility] 10 [facility] 2nd [place] [address] Seth Jeter MD [address] [address] [email or web address] Malabsorption due to intolerance, not elsewhere classified [...] 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 Not on file Not on file documented as of this encounter Plan of Treatment Upcoming Encounters Date Type Department Care Team (Late st Contact Info) Description 09/28/2024 Procedure Pass [address] [place] [address] 01/23/2025 2:45 PM EST Office Visit [facility] 10 [place] [address] Unknown, Unknown, Nat Marquez PA-C [address] [address] 05/10/2025 9:15 AM EDT Appointment [address] [place] [address] Jessy Andersen, AMBIKA [address] [place] [address] documented as of this encounter Results * C-Reactive Protein (10/04/2018 1:59 PM EDT) Pathologist [facility] C REACTIVE PROTEIN 3.2 0.0 - 4.0 mg/L [facility] Blood 10/04/2018 1:59 PM EDT 10/04/2018 2:04 PM EDT us Seth Jeter MD LAB BLOOD ORDERABLES Final R esult [facility] [address] [place] [address] * CBC (10/04/2018 1:59 PM EDT) WBC 6.90 3.40 - 11.20 K/uL [facility] RBC 4.70 3.80 - 4.80 M/uL [facility] HGB 13.1 12.0 - 15.0 g/dL [facility] HCT 39.7 36.0 - 46.0 % [facility] PLT 261 130 - 400 K/uL [facility] MCV 84.5 79.0 - 98.0 fL [facility] MCH 27.9 27.0 - 34.8 pg [facility] MCHC 33.0 31.5 - 36.0 g/dL [facility] RDW 13.1 10.8 - 14.6 % [facility] MPV 11.4 9.4 - 12.4 fl [facility] NRBC 0.00 0.00 /100 WBCs [facility] ABSOLUTE NRBC 0.00 0.00 K/uL [facility] Blood 10/04/2018 1:59 PM EDT 10/04/2018 2:04 PM EDT us Seth Jeter MD LAB BLOOD ORDERABLES Final R esult Performing Organization Address [facility] Co de Phone Number [facility] [address] [place] [address] * Tissue transglutaminase IgA (10/04/2018 1:59 PM EDT) TTG IGA ANTIBODY <1.2 <4.0 (Negative) U/mL [facility] Blood 10/04/2018 1:59 PM EDT 10/04/2018 2:03 PM EDT us Seth Jeter MD LAB BLOOD ORDERABLES Final R esult Performing Organization Address City/State/[facility] Co de Phone Number [facility] [address] [place] [address] documented in this encounter Visit Diagnoses Diagnosis Malabsorption due to intolerance, not elsewhere classified- Primary Gastroesophageal reflux disease without esophagitis Esophageal reflux documented in this encounter Additional Health Concerns Infection Onset Date Last Indicated Resolved Time CoV-Risk 12/21/2021 12/21/2021 01/01/2022 1:22 AM EDT documented as of this encounter Care Teams Vehicle Refinisher Relationship Specialty Start Date End Date Jacquelyn Chandler MD [address] [place] [address] [email or web address] PCP - General Internal Medicine 12/01/17 01/28/23 Jessy Andersen NP [address] [place] [address] PCP - General Nurse Practitioner 01/29/23 12/15/24 Jessy Andersen NP [address] [place] [address] PCP - General Nurse Practitioner 12/16/24 documented as of this encounter Additional Source Comments The information contained in this document represents components of the legal health record. It is not the complete legal health record.[facility]
--- OUTSIDE RECORDS SUMMARY | 2024-12-26 17:56 | XMS_ITS | Encounter Summary ---
Author Organization [facility] Address [address] [place] [address] [place] [address] Phone Care Team Providers Care Sport Intern Name Role Phone Jacquelyn Chandler MD Primary Care Provider [phone] Jessy Andersen DYNAMOMETER MECHANIC Primary Care Provider Jessy Andersen DYNAMOMETER MECHANIC Primary Care Provider Encounter Details Date Type Department Care Team (Latest Contact Info) Description 11/30/2018 Transcribe Orders [address] [place] [address] Jacquelyn Chandler MD [address] [place] [address] [email or web address] Pain in joint, multiple [...] 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 Not on file Not on file documented as of this encounter Plan of Treatment Upcoming Encounters Date Type Department Care Team (Late st Contact Info) Description 09/28/2024 Procedure Pass [address] [place] [address] 01/23/2025 2:45 PM EST Office Visit [facility] 10 [place] [address] Unknown, Unknown, Nat Marquez PA-C [address] [address] 05/10/2025 9:15 AM EDT Appointment [address] [place] [address] Jessy Andersen, DYNAMOMETER MECHANIC [address] [place] [address] documented as of this encounter Results * Homocysteine (11/30/2018 9:10 AM EDT) HOMOCYSTEINE, TOTAL 8.1 0 - 14.2 umol/L [facility] Blood 11/30/2018 9:10 AM EDT 11/30/2018 9:17 AM EDT Jacquelyn Chandler MD LAB BLOOD ORDERABLES Final R esult [address] [address] * Vitamin B12 (11/30/2018 9:10 AM EDT) VITAMIN B12 655 232 - 1,245 pg/mL [facility] Blood 11/30/2018 9:10 AM EDT 11/30/2018 9:17 AM EDT Jacquelyn Chandler MD LAB BLOOD ORDERABLES Final R esult [facility] [address] [place] [address] * Folate (11/30/2018 9:10 AM EDT) FOLIC ACID 13.5 4.2 - 19.9 ng/mL [facility] Blood 11/30/2018 9:10 AM EDT 11/30/2018 9:17 AM EDT Jacquelyn Chandler MD LAB BLOOD ORDERABLES Final R esult Performing Organization Address [facility] Co de Phone Number [facility] [address] [place] [address] * Methylmalonic acid, serum (11/30/2018 9:10 AM EDT) Pathologist [facility] METHYLMALONIC ACID 0.12 <=0.40 nmol/mL [facility] DPT OF LAB MED AND PAT+ Comment: (NOTE) ADDITIONAL INFORMATION This test was developed and its performance characteristics determined by [facility] in a manner consistent with CLIA requirements. This test has not been cleared or approved by the U.S. Food and Drug Administration. Blood 11/30/2018 9:10 AM EDT 11/30/2018 2:18 PM EDT Jacquelyn Chandler MD LAB BLOOD ORDERABLES Final R esult Performing Organization Address [facility]/ZIP Co de Phone Number [facility] DPT OF LAB MED AND PAT+ [address] [place] [address] * Basic metabolic panel (11/30/2018 9:10 AM EDT) SODIUM 141 133 - 146 mmol/L [facility] CHLORIDE 103 96 - 108 mmol/L [facility] POTASSIUM 4.8 3.3 - 5.1 mmol/L [facility] CO2 26 21 - 35 mmol/L [facility] BUN 18 6 - 19 mg/dL [facility] CREATININE 0.90 0.5 - 1.5 mg/dL [facility] GLUCOSE 95 70 - 99 mg/dL [facility] CALCIUM 9.7 8.4 - 10.3 mg/dL [facility] EGFR 69 >59 mL/min/1.7 3m2 [facility] Comment:If patient is black, multiply result by 1.159. Estimated glomerular filtration rate calculated using the CKD-EPI equation. ANION GAP 17 10 - 20 mmol/L [facility] Blood 11/30/2018 9:10 AM EDT 11/30/2018 9:17 AM EDT Jacquelyn Chandler MD LAB BLOOD ORDERABLES Final R esult Performing Organization Address [facility] Co de Phone Number [address] [address] * (ABNORMAL) Lipid panel (11/30/2018 9:10 AM EDT) HDL 45 mg/dL [facility] Comment: Interpretation <40 mg/dL: Low HDL cholesterol (major risk factor for CHD) Greater than or equal to 60 mg/dL: High HDL cholesterol ( negative risk factor for CHD) HDL - cholesterol is affected by a number of factors, e.g. smoking, excerise, hormones, sex and age. CHOLESTEROL 323(H) 0 - 240 mg/dL [facility] TRIGLYCERIDES 222(H) 30 - 160 mg/dL [facility] LDL 234(H) 50 - 129 mg/dL [facility] Comment: LDL levels in terms of risk for coronary heart disease: <100 mg/dL: Optimal 100-129 mg/dL: Near or above optimal 130-159 mg/dL: Borderline high 160-189 mg/dL: High >190 mg/dL: Very High CARDIAC RISK RATIO 7.2(H) 3.3 - 4.4 [facility] Blood 11/30/2018 9:10 AM EDT 11/30/2018 9:17 AM EDT us Jacquelyn Chandler MD LAB BLOOD ORDERABLES Final R esult Performing Organization Address City/[facility] Co de Phone Number [address] [address] * (ABNORMAL) Lyme screen with reflex to Western blot, blood (11/30/2018 9:10 AM EDT) Pathologist [facility] Lyme AB IgG Negative Negative [facility] Lyme AB IgM Equivocal(A) Negative [facility] Comment:The Lyme Disease Ant ibody, Confirmation, Serum (Western Blot) has been reflexed. The results will follow. Blood 11/30/2018 9:10 AM EDT 11/30/2018 9:17 AM EDT us Jacquelyn Chandler MD LAB BLOOD ORDERABLES Final R esult Performing Organization Address City/[facility]/ZIP Co de Phone Number [address] [address] * Sedimentation rate (ESR) (11/30/2018 9:10 AM EDT) Pathologist [facility] ESR 17 0 - 30 mm/h [facility] Blood 11/30/2018 9:10 AM EDT 11/30/2018 9:17 AM EDT us Jacquelyn Chandler MD LAB BLOOD ORDERABLES Final R esult Performing Organization Address City/[facility]/ZIP Co de Phone Number [address] [address] * CPK (creatine kinase) (11/30/2018 9:10 AM EDT) Pathologist [facility] CREATINE KINASE 40 21 - 215 U/L [facility] Blood 11/30/2018 9:10 AM EDT 11/30/2018 9:17 AM EDT us Jacquelyn Chandler MD LAB BLOOD ORDERABLES Final R esult Performing Organization Address [facility] Co de Phone Number [address] [address] * CCP IgG antibodies (11/30/2018 9:10 AM EDT) ANTI-CCP IGG <8 0 - 16 U/mL [facility] Blood 11/30/2018 9:10 AM EDT 11/30/2018 9:17 AM EDT Jacquelyn Chandler MD LAB BLOOD ORDERABLES Final R esult [address] [address] * CBC and differential (11/30/2018 9:10 AM EDT) WBC 5.14 3.40 - 11.20 K/uL [facility] RBC 4.77 3.80 - 4.80 M/uL [facility] HGB 13.3 12.0 - 15.0 g/dL [facility] HCT 40.6 36.0 - 46.0 % [facility] PLT 283 130 - 400 K/uL [facility] MCV 85.1 79.0 - 98.0 fL [facility] MCH 27.9 27.0 - 34.8 pg [facility] MCHC 32.8 31.5 - 36.0 g/dL [facility] RDW 13.5 10.8 - 14.6 % [facility] MPV 11.2 9.4 - 12.4 fl [facility] NRBC 0.00 0.00 /100 WBCs [facility] ABSOLUTE NRBC 0.00 0.00 K/uL [facility] DIFF METHOD Auto [facility] NEUTS 60.6 45.30 - 77.70 % [facility] LYMPHS 30.0 12.30 - 39.70 % [facility] MONOS 6.2 4.10 - 12.80 % [facility] EOS 1.8 0 - 7.2 % [facility] BASOS 1.2 0 - 2.80 % [facility] Granulocytes, immature (%) 0.2 0.0 - 0.9 % [facility] ABSOLUTE NEUTS 3.12 1.40 - 7.70 K/uL [facility] ABSOLUTE LYMPHS 1.54 0.60 - 3.20 K/uL [facility] ABSOLUTE MONOS 0.32 0.11 - 0.59 K/uL [facility] ABSOLUTE EOS 0.09 0.01 - 0.50 K/uL [facility] ABSOLUTE BASOS 0.06 0.00 - 0.08 K/uL [facility] Granulocytes, immature 0.01 0.00 - 0.05 K/uL [facility] Blood 11/30/2018 9:10 AM EDT 11/30/2018 9:17 AM EDT us Jacquelyn Chandler MD LAB BLOOD ORDERABLES Final R esult Performing Organization Address City/[facility]/ZIP Co de Phone Number [address] [address] * (ABNORMAL) C-Reactive Protein (11/30/2018 9:10 AM EDT) C REACTIVE PROTEIN 8.6(H) 0.0 - 4.0 mg/L [facility] Blood 11/30/2018 9:10 AM EDT 11/30/2018 9:17 AM EDT us Jacquelyn Chandler MD LAB BLOOD ORDERABLES Final R esult Performing Organization Address [facility] Co de Phone Number [address] [address] * Antinuclear antibody (NEGAR) (11/30/2018 9:10 AM EDT) NEGAR SCREEN ON HEP 2 Negative Negative [facility] Blood 11/30/2018 9:10 AM EDT 11/30/2018 9:17 AM EDT us Jacquelyn Chandler MD LAB BLOOD ORDERABLES Final R esult Performing Organization Address [facility] Co de Phone Number [address] [address] documented in this encounter Visit Diagnoses Diagnosis Pain in joint, multiple sites- Primary Hyperlipidemia, unspecified hyperlipidemia type Annual physical exam Routine general medical examination at a health care facility Mild neurocognitive disorder documented in this encounter Additional Health Concerns Infection Onset Date Last Indicated Resolved Time CoV-Risk 12/21/2021 12/21/2021 01/01/2022 1:22 AM EDT documented as of this encounter Care Teams Sport Intern Relationship Specialty Start Date End Date Jacquelyn Chandler MD [address] [place] [address] [email or web address] PCP - General Internal Medicine 12/01/17 01/28/23 Jessy Andersen NP [address] [place] [address] PCP - General Nurse Practitioner 01/29/23 12/15/24 Jessy Andersen NP [address] [place] [address] PCP - General Nurse Practitioner 12/16/24 documented as of this encounter Additional Source Comments The information contained in this document represents components of the legal health record. It is not the complete legal health record.[facility]
--- OUTSIDE RECORDS SUMMARY | 2024-12-26 17:56 | XMS_ITS | Encounter Summary ---
Author Organization [employer] Address [address] [facility] 7t [place] [address] Care Team Providers Care Internet Sales Director Name Role Phone [facility] Primary Care Provider [phone] Encounter Details Date Type Department Care Team (Late st Contact Info) Description 09/01/2024 Orders Only [facility] [address] [place] [address] Jessy Andersen, [facility] [address] [place] [address] Social History Tobacco Use Types Packs/Day Years [...] 03/24/2025 11:40 AM EST Office Visit [facility] [address] [place] [address] [facility] Jessy [facility] [address] [place] [address] documented as of this encounter Procedures Procedure Name Priority Date/Time Associated Diagnosis Comments COMPREHENSIVE METABOLIC PANEL Routine 08/29/2024 11:29 AM EDT documented in this encounter Results * Comprehensive Metabolic Panel (08/29/2024 11:29 AM EDT) Blood Venous blood specimen / Unknown [facility] LAB BLOOD ORDERABLES Ana l Result documented in this encounter Visit Diagnoses Not on filedocumented in this encounter Care Teams Internet Sales Director Relationship Specialty Start Date End Date Jessy Andersen FNP [address] [place] [address] PCP - General Family Medicine 10/01/22 documented as of this encounter
--- OUTSIDE RECORDS SUMMARY | 2024-12-26 17:56 | XMS_ITS | Encounter Summary ---
Author Organization [facility] Address [address] [place] [phone] Phone Care Team Providers Care Forestry Hunter Name Role Phone Jacquelyn Chandler MD Primary Care Provider [phone] Jessy Andersen BRINE MIXER OPERATOR Primary Care Provider Jessy Andersen BRINE MIXER OPERATOR Primary Care Provider Reason for Referral * Outpatient Procedure - Closed Specialty Diagnoses / Procedures Referred By Gabriele canales Referred To Contact Radiology Diagnoses Abdominal pain, epigastric Nausea Procedures NM Gastric Emptying Seth Jeter MD Phone: tel: fax: [email or web address] Referral ID Status Reason Start Date Expiration Date Visits Re quested Visits Authorized [id number] Closed 06/07/2018 06/07/2019 1 1 Encounter Details Date Type Department Care Team (Latest Contact Info) Description 06/07/2018 Transcribe Orders Virtual Department [address] [place] [address] Seth Jeter MD [address] [place] [phone] Abdominal pain, epigastric (Primary Dx); Nausea Social [...] 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 Not on file documented as of this encounter Plan of Treatment Upcoming Encounters Date Type Department Care Team (Late st Contact Info) Description 09/28/2024 Procedure Pass [address] [place] [address] 01/23/2025 2:45 PM EST Office Visit [facility] 10 [place] [address] Unknown, Unknown, Nat Marquez PA-C [address] [address] [email or web address] 05/10/2025 9:15 AM EDT Appointment [address] [place] [address] Jessy Andersen, AMBIKA [address] [place] [address] documented as of this encounter Results * [...] POS [id number] us Seth Jeter MD IMG IA ABDOMEN Final Result * US ABDOMEN LIMITED RIGHT UPPER QUADRANT (06/30/2018 8:28 AM EDT) Anatomical Region Laterality Modality Abdomen Ultrasound 06/30/2018 8:22 AM EDT Impressions 06/30/2018 8:33 AM EDT No findings to account for the patient's symptoms. POS [id number] Narrative 06/30/2018 8:33 AM EDT COMPARISON: None. [...] to account for the patient's symptoms. POS [id number] us Seth Jeter MD IMG US ABDOMEN Final Result documented in this encounter Visit Diagnoses Diagnosis Abdominal pain, epigastric- Primary Nausea Nausea alone Abdominal pain, epigastric Nausea Nausea alone Abdominal pain, epigastric Nausea Nausea alone documented in this encounter Additional Health Concerns Infection Onset Date Last Indicated Resolved Time CoV-Risk 12/21/2021 12/21/2021 01/01/2022 1:22 AM EDT documented as of this encounter Care Teams Forestry Hunter Relationship Specialty Start Date End Date Jacquelyn Chandler MD [address] [place] [phone] PCP - General Internal Medicine 12/01/17 01/28/23 [facility] Jessy Mary NP [address] [place] [address] PCP - General Nurse Practitioner 01/29/23 12/15/24 [place], [place] AMBIKA Mary [address] [place] [phone] PCP - General Nurse Practitioner 12/16/24 documented as of this encounter Additional Source Comments The information contained in this document represents components of the legal health record. It is not the complete legal health record.[facility]
--- OUTSIDE RECORDS SUMMARY | 2024-12-26 17:56 | XMS_ITS | Encounter Summary ---
Author Organization [facility] Address [address] [place] [address] [place] [phone] Phone Care Team Providers Care Sweatband Drummer Name Role Phone Jacquelyn Chandler MD Primary Care Provider Jessy Andersen TEMPLATE INSPECTOR Primary Care Provider Jessy Andersen TEMPLATE INSPECTOR Primary Care Provider Encounter Details Date Type Department Care Team (Latest Contact Info) Description 11/27/2021 Transcribe Orders [facility] [address] [address] Nat Tam PA 10 [place] [address] Abdominal pain, left lower quadrant (Primary Dx); [...] Contact Info) Description 09/28/2024 Procedure Pass [address] [place] [address] 01/23/2025 2:45 PM EST Office Visit [facility] 10 [place] [address] Unknown, Unknown, Nat Marquez PA-C [address] [address] 05/10/2025 9:15 AM EDT Appointment [address] [place] [address] Jessy Andersen, AMBIKA [address] [place] [address] documented as of this encounter Results * (ABNORMAL) 25-OH vitamin D (11/27/2021 11:43 AM EDT) 25 OH VIT D (TOTAL) 26(L) 30 - 60 ng/mL [facility] Blood 11/27/2021 11:4 3 AM EDT 11/27/2021 11:47 AM EDT us Nat GONZALEZ LAB BLOOD ORDERABLES Final Result [facility] [address] [place] [address] * Vitamin B12 (11/27/2021 11:43 AM EDT) VITAMIN B12 1,048 232 - 1,245 pg/mL [facility] Blood 11/27/2021 11:4 3 AM EDT 11/27/2021 11:47 AM EDT us Nat GONZALEZ LAB BLOOD ORDERABLES Final Result Performing Organization Address [facility] Co de Phone Number [address] [address] * CBC (11/27/2021 11:43 AM EDT) WBC 5.75 4.00 - 11.00 K/uL [facility] RBC 4.62 3.72 - 5.30 M/uL [facility] HGB 13.0 11.4 - 15.9 g/dL [facility] HCT 39.5 34.2 - 46.8 % [facility] PLT 286 140 - 430 K/uL [facility] MCV 85.5 78.0 - 97.0 fL [facility] MCH 28.1 25.0 - 33.0 pg [facility] MCHC 32.9 32.0 - 36.0 g/dL [facility] RDW 13.5 11.0 - 16.0 % [facility] MPV 11.1 8.4 - 12.8 [facility] Blood 11/27/2021 11:4 3 AM EDT 11/27/2021 11:47 AM EDT us Nat GONZALEZ LAB BLOOD ORDERABLES Final Result Performing Organization Address [facility] Co de Phone Number [address] [address] documented in this encounter Visit Diagnoses Diagnosis Abdominal pain, left lower quadrant- Primary Abdominal pain, right lower quadrant documented in this encounter Additional Health Concerns Infection Onset Date Last Indicated Resolved Time CoV-Risk 12/21/2021 12/21/2021 01/01/2022 1:22 AM EDT Assessment Noted Time PHQ-2 Depression Total Score: 0 07/30/19 10:09 AM EDT documented as of this encounter Care Teams Sweatband Drummer Relationship Specialty Start Date End Date Jacquelyn Chandler MD [address] [place] [address] [email or web address] PCP - General Internal Medicine 12/01/17 01/28/23 Jessy Andersen NP [address] [address] PCP - General Nurse Practitioner 01/29/23 12/15/24 Jessy Andersen NP [address] [place] [address] PCP - General Nurse Practitioner 12/16/24 documented as of this encounter Additional Source Comments The information contained in this document represents components of the legal health record. It is not the complete legal health record.[facility]
--- OUTSIDE RECORDS SUMMARY | 2024-12-26 17:56 | XMS_ITS | Encounter Summary ---
Author Organization [facility] Address [address] [place] [address] [place] [address] Phone Care Team Providers Care Test Design Engineer Name Role Phone Jacquelyn Chandler MD Primary [facility] Provider [facility] SECRETARY SPECIALIST Primary Care Provider Jessy Andersen SECRETARY SPECIALIST Primary Care Provider Encounter Details Date Type Department Care Team (Late st Contact Info) Description 11/15/2018 Ancillary Orders Virtual Department 30 [place] [address] Jacquelyn Chandler MD [address] [place] [address] [email or web address] Breast screening Social History [...] 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 Not on file Not on file documented as of this encounter Plan of Treatment Upcoming Encounters Date Type Department Care Team (Late st Contact Info) Description 09/28/2024 Procedure Pass [address] [place] [address] 01/23/2025 2:45 PM EST Office Visit [facility] 10 [place] [address] Unknown, Unknown, Nat Marquez PA-C [address] [address] 05/10/2025 9:15 AM EDT Appointment [address] [place] [address] Jessy Andersen, AMBIKA [address] [place] [address] documented as of this encounter Results * [...] as of this encounter Care Teams Test Design Engineer Relationship Specialty Start Date End Date Jacquelyn Chandler MD [address] [place] [phone] PCP - General Internal Medicine 12/01/17 01/28/23 [facility] [address] [place] [address] PCP - General Nurse Practitioner 01/29/23 12/15/24 Jessy Andersen NP [address] [place] [address] PCP - General Nurse Practitioner 12/16/24 documented as of this encounter Additional Source Comments The information contained in this document represents components of the legal health record. It is not the complete legal health record.[facility]
--- OUTSIDE RECORDS SUMMARY | 2024-12-26 17:56 | XMS_ITS | Encounter Summary ---
Author Organization [facility] Address [address] [place] [address] [place] [phone] Phone Care Team Providers Care Fur Feeder Name Role Phone Jacquelyn Chandler MD Primary Care Provider [phone] [facility] LPN INSTRUCTOR Primary Care Provider [facility] LPN INSTRUCTOR Primary Care Provider Reason for Referral * MRI/CAT Scan - Closed Specialty Diagnoses / Procedures Referred By Gabriele canales Referred To Contact Radiology Diagnoses Nausea LLQ pain Procedures CT Abdomen/Pelvis Seth Jeter MD Phone: tel: fax: mailto:[email or web address] Referral ID Status Reason Start Date Expiration Date Visits Re quested Visits Authorized [id number] Closed 08/17/2018 11/15/2018 1 1 Encounter Details Date Type Department Care Team (Latest Contact Info) Description 08/18/2018 Transcribe Orders Virtual Department 30 [place] [address] Seth Jeter MD [address] [place] [phone] Nausea (Primary Dx); LLQ pain Social History [...] 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 Not on file documented as of this encounter Plan of Treatment Upcoming Encounters Date Type Department Care Team (Late st Contact Info) Description 09/28/2024 Procedure Pass [address] [place] [address] 01/23/2025 2:45 PM EST Office Visit [facility] 10 [place] [address] Unknown, Unknown, Nat Marquez PA-C [address] [address] [email or web address] 05/10/2025 9:15 AM EDT Appointment [address] [place] [address] Jessy Andersen, AMBIKA [address] [place] [address] documented as of this encounter Results * [...] only. TOTAL CTDIvol: 5.8 mGy POS - [id number] Edited by: Karen Jin on 08/26/2018 10:37 [...] only. TOTAL CTDIvol: 5.8 mGy POS - [id number] Edited by: Karen Jin on 08/26/2018 10:37 [...] documented as of this encounter Care Teams Fur Feeder Relationship Specialty Start Date End Date Jacquelyn Chandler MD [address] [place] [address] PCP - General Internal Medicine 12/01/17 01/28/23 Jessy Andersen NP [address] [place] [address] PCP - General Nurse Practitioner 01/29/23 12/15/24 Jessy Andersen NP [address] [place] [address] PCP - General Nurse Practitioner 12/16/24 documented as of this encounter Additional Source Comments The information contained in this document represents components of the legal health record. It is not the complete legal health record.[facility]
--- OUTSIDE RECORDS SUMMARY | 2024-12-26 17:56 | XMS_ITS | Encounter Summary ---
Author Organization [facility] Address [address] [place] [address] [place] [address] Phone Care Team Providers Care Professor Of Special Education Name Role Phone Jacquelyn Chandler MD Primary Care Provider [facility] ASSEMBLER FLUORESCENT LIGHTS Primary Care Provider Jessy Andersen ASSEMBLER FLUORESCENT LIGHTS Primary Care Provider Encounter Details Date Type Department Care Team (Latest Contact Info) Description 09/12/2019 Transcribe Orders [address] [place] [address] Seth Jeter MD [address] [place] [address] [email or web address] Abdominal pain, RLQ (Primary Dx) Social History [...] 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 Not on file documented as of this encounter Plan of Treatment Upcoming Encounters Date Type Department Care Team (Late st Contact Info) Description 09/28/2024 Procedure Pass [address] [place] [address] 01/23/2025 2:45 PM EST Office Visit [facility] 10 [place] [address] Unknown, Unknown, Nat Marquez PA-C [address] [address] 05/10/2025 9:15 AM EDT Appointment [address] [place] [address] Jessy Andersen, AMBIKA [address] [place] [address] documented as of this encounter Results * (ABNORMAL) Creatinine/eGFR (09/12/2019 2:54 PM EDT) CREATININE 1.10 0.5 - 1.5 mg/dL [facility] EGFR 54(L) >59 mL/min/1.7 3m2 [facility] Comment:Estimated glomerular filtration rate calculated using the CKD-EPI equation. Blood 09/12/2019 2:54 PM EDT 09/12/2019 2:56 PM EDT us Seth Jeter MD LAB BLOOD ORDERABLES Final R esult [facility] 30 [place] [address] * BUN (09/12/2019 2:54 PM EDT) BUN 17 6 - 19 mg/dL [facility] Blood 09/12/2019 2:54 PM EDT 09/12/2019 2:56 PM EDT us Seth Jeter MD LAB BLOOD ORDERABLES Final R esult [facility] [address] [place] [address] documented in this encounter Visit Diagnoses Diagnosis Abdominal pain, RLQ- Primary documented in this encounter Additional Health Concerns Infection Onset Date Last Indicated Resolved Time CoV-Risk 12/21/2021 12/21/2021 01/01/2022 1:22 AM EDT documented as of this encounter Care Teams Professor Of Special Education Relationship Specialty Start Date End Date Jacquelyn Chandler MD [address] [place] [address] [email or web address] PCP - General Internal Medicine 12/01/17 01/28/23 Jessy Andersen NP [address] [place] [address] PCP - General Nurse Practitioner 01/29/23 12/15/24 Jessy Andersen NP [address] [place] [address] PCP - General Nurse Practitioner 12/16/24 documented as of this encounter Additional Source Comments The information contained in this document represents components of the legal health record. It is not the complete legal health record.[facility]
--- OUTSIDE RECORDS SUMMARY | 2024-12-26 17:56 | XMS_ITS | Encounter Summary ---
Author Organization [facility] Address [address] [place] [address] [place] [address] Phone Care Team Providers Care Auto Collision Repair Instructor Name Role Phone Jacquelyn Chandler MD Primary Care Provider Jessy Andersen INDOOR SPORTS CENTRE MANAGER Primary Care Provider Jessy Andersen INDOOR SPORTS CENTRE MANAGER Primary Care Provider Reason for Referral * MRI/CAT Scan - Closed Specialty Diagnoses / Procedures Referred By Gabriele canales Referred To Contact Radiology Diagnoses Abnormal findings on diagnostic imaging of liver and biliary tract RLQ abdominal pain Procedures CT Abdomen/Pelvis Seth Jeter MD Phone: tel: fax: [email or web address]:[email or web address] Referral ID Status Reason Start Date Expiration Date Visits Re quested Visits Authorized [id number] Closed 09/28/2019 01/18/2020 1 1 Encounter Details Date Type Department Care Team (Latest Contact Info) Description 09/28/2019 Transcribe Orders Virtual Department 30 [place], [place] [phone] Seth Jeter MD [address] [address] Abnormal findings on diagnostic imaging of liver [...] Contact Info) Description 09/28/2024 Procedure Pass [address] [place] [address] 01/23/2025 2:45 PM EST Office Visit [facility] 10 [place] [address] Unknown, Unknown, Nat Marquez PA-C 10 [facility] 2 [place] [address] [email or web address] 05/10/2025 9:15 AM EDT Appointment [address] [place] [address] Jessy Andersen, AMBIKA [address] [place] [address] documented as of this encounter Results * [...] as of this encounter Care Teams Auto Collision Repair Instructor Relationship Specialty Start Date End Date Jacquelyn Chandler MD [address] [place] [address] [email or web address] PCP - General Internal Medicine 12/01/17 01/28/23 Jessy Andersen NP [address] [place] [address] PCP - General Nurse Practitioner 01/29/23 12/15/24 Jessy Andersen NP [address] [place] [address] PCP - General Nurse Practitioner 12/16/24 documented as of this encounter Additional Source Comments The information contained in this document represents components of the legal health record. It is not the complete legal health record.[facility]
--- OUTSIDE RECORDS SUMMARY | 2024-12-26 17:56 | XMS_ITS | Encounter Summary ---
Author Organization [facility] Address [address] [place] [address] [place] [address] Phone Care Team Providers Care Box Car Bracer Name Role Phone Jacquelyn Chandler MD Primary Care Provider [facility] [employer]CHOOL OF NURSING DIRECTOR Primary Care Provider Jessy Andersen [employer] DIRECTOR Primary Care Provider Encounter Details Date Type Department Care Team (Latest Contact Info) Description 08/16/2018 Transcribe Orders [address] [place] [address] Seth Jeter MD [address] [place] [address] [email or web address] LLQ pain (Primary Dx); Nausea Social History [...] 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 file documented as of this encounter Plan of Treatment Upcoming Encounters Date Type Department Care Team (Late st Contact Info) Description 09/28/2024 Procedure Pass [address] [place] [address] 01/23/2025 2:45 PM EST Office Visit [facility] 10 [place] [address] Unknown, Unknown, Nat Marquez PA-C [address] [address] [email or web address] 05/10/2025 9:15 AM EDT Appointment [address] [place] [address] Jessy Andersen, SCHO[employer] OF NURSING DIRECTOR [address] [place] [address] documented as of this encounter Results * Creatinine/eGFR (08/16/2018 9:25 AM EDT) CREATININE 0.90 0.5 - 1.5 mg/dL [facility] EGFR 69 >59 mL/min/1.7 2 [facility] Comment:If patient is black, multiply result by 1.159. Estimated glomerular filtration rate calculated using the CKD-EPI equation. Blood 08/16/2018 9:25 AM EDT 08/16/2018 9:29 AM EDT us Seth Jeter MD LAB BLOOD ORDERABLES Final R esult [facility] 30 [place] [address] * BUN (08/16/2018 9:25 AM EDT) BUN 13 6 - 19 mg/dL [facility] Blood 08/16/2018 9:25 AM EDT 08/16/2018 9:29 AM EDT us Seth Jeter MD LAB BLOOD ORDERABLES Final R esult [facility] [address] [place] [address] documented in this encounter Visit Diagnoses Diagnosis LLQ pain- Primary Abdominal pain, left lower quadrant Nausea Nausea alone documented in this encounter Additional Health Concerns Infection Onset Date Last Indicated Resolved Time CoV-Risk 12/21/2021 12/21/2021 01/01/2022 1:22 AM EDT documented as of this encounter Care Teams Box Car Bracer Relationship Specialty Start Date End Date Jacquelyn Chandler MD [address] [place] [address] [email or web address] PCP - General Internal Medicine 12/01/17 01/28/23 Jessy Andersen NP [address] [place] [address] PCP - General Nurse Practitioner 01/29/23 12/15/24 Jessy Andersen NP [address] [place] [address] PCP - General Nurse Practitioner 12/16/24 documented as of this encounter Additional Source Comments The information contained in this document represents components of the legal health record. It is not the complete legal health record.[facility]
--- OUTSIDE RECORDS SUMMARY | 2024-12-26 17:56 | XMS_ITS | Encounter Summary ---
Author Organization [facility] Address [address] [place] [address] Phone Care Team Providers Care Service Dismantler Name Role Phone Jacquelyn Chandler MD Primary Care Provider Jessy Andersen DOG HANDLER OR TRAINER Primary Care Provider Jessy Andersen DOG HANDLER OR TRAINER Primary Care Provider Encounter Details Date Type Department Care Team (Latest Contact Info) Description 12/05/2021 Transcribe Orders Virtual Department 30 [place] [address] Nat Tam PA [address] [place] [address] Pelvic pain (Primary Dx) Social History Tobacco [...] Contact Info) Description 09/28/2024 Procedure Pass [address] [place] [address] 01/23/2025 2:45 PM EST Office Visit [facility] 10 [place] [address] Unknown, Unknown, Nat Marquez PA-C [address] [address] 05/10/2025 9:15 AM EDT Appointment [address] [place] [address] Jessy Andersen, AMBIKA [address] [place] [address] documented as of this encounter Results * [...] as of this encounter Care Teams Service Dismantler Relationship Specialty Start Date End Date Jacquelyn Chandler MD [address] [place] [address] [email or web address] PCP - General Internal Medicine 12/01/17 01/28/23 [place], [place] AMBIKA Mary [address] [place] [address] PCP - General Nurse Practitioner 01/29/23 12/15/24 [place], [place] AMBIKA Mary [address] [place] [address] PCP - General Nurse Practitioner 12/16/24 documented as of this encounter Additional Source Comments The information contained in this document represents components of the legal health record. It is not the complete legal health record.[facility]
--- OUTSIDE RECORDS SUMMARY | 2024-12-26 17:56 | XMS_ITS | Encounter Summary ---
Author Organization [facility] Address [address] [place] [address] Phone Care Team Providers Care Barrel Rifler Operator Name Role Phone Jacquelyn Chandler MD Primary Care Provider Jessy Andersen LEASING MACHINE TENDER Primary Care Provider Jessy Andersen LEASING MACHINE TENDER Primary Care Provider Encounter Details Date Type Department Care Team (Late st Contact Info) Description 06/24/2018 Ancillary Orders [facility] [address] [address] Cammie Rodriguez, PATamraC [address] [facility], [address] [place] [address] [email or web address] Social History Tobacco Use Types Packs/Day Years [...] Industry Job Start Date 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 [place] Not on file Not on file Not on file documented as of this encounter Plan of Treatment Upcoming Encounters Date Type Department Care Team (Late st Contact Info) Description 09/28/2024 Procedure Pass [address] [place] [address] 01/23/2025 2:45 PM EST Office Visit [facility] 10 [place] [address] Unknown, Unknown, Nat Marquez PA-C [address] [address] 05/10/2025 9:15 AM EDT Appointment [address] [place] [address] Jessy Andersen NP [address] [place] [address] documented as of this encounter Visit Diagnoses Not on filedocumented in this encounter Additional Health Concerns Infection Onset Date Last Indicated Resolved Time CoV-Risk 12/21/2021 12/21/2021 01/01/2022 1:22 AM EDT documented as of this encounter Care Teams Barrel Rifler Operator Relationship Specialty Start Date End Date Jacquelyn Chandler MD [address] [place] [address] PCP - General Internal Medicine 12/01/17 01/28/23 Jessy Andersen NP [address] [place], [place] [address] [address] PCP - General Nurse Practitioner 01/29/23 12/15/24 Jessy Andersen NP [address] [place] [address] PCP - General Nurse Practitioner 12/16/24 documented as of this encounter Additional Source Comments The information contained in this document represents components of the legal health record. It is not the complete legal health record.[facility]
--- OUTSIDE RECORDS SUMMARY | 2024-12-26 17:56 | XMS_ITS | Encounter Summary ---
Author Organization [employer] Address [address] [facility] 7t [place] [address] Care Team Providers Care Boiler Engineer Name Role Phone [facility] Primary Care Provider [phone] Encounter Details Date Type Department Care Team (Late st Contact Info) Description 11/03/2024 Orders Only [facility] [address] [place] [address] Jessy Andersen, [facility] [address] [place] [address] Social History Tobacco Use Types Packs/Day Years Used Date Smoking Tobacco: Never Smokeless Tobacco: Never Alcohol Use Standard Drinks/Week Comments Never 0 (1 standard drink = 0.6 oz pur e alcohol) Housing Stability Answer Date Recorded What is your housing situation today? I have chcuky tapia 09/17/[address] you [...] Description 03/24/2025 11:40 AM EST Office Visit [facility] [address] [place] [address] [facility] [address] [place] [address] documented as of this encounter Procedures Procedure Name Priority Date/Time Associated Diagnosis Comments SED RATE BY MODIFIED WESTERGREN Routine 11/02/2024 2:06 PM EDT CBC WITH AUTO DIFFERENTIAL Routine 11/02/2024 2:06 PM EDT documented in this encounter Results * Sed Rate by Modified Westergren (11/02/2024 2:06 PM EDT) Blood Venous blood specimen / Unknown [facility] LAB BLOOD ORDERABLES Ana l Result * CBC auto differential (11/02/2024 2:06 PM EDT) Blood Venous blood specimen / Unknown [facility] LAB BLOOD ORDERABLES Ana l Result documented in this encounter Visit Diagnoses Not on filedocumented in this encounter Care Teams Boiler Engineer Relationship Specialty Start Date End Date [facility] [address] [place] [address] PCP - General Family Medicine 10/01/22 documented as of this encounter
--- OUTSIDE RECORDS SUMMARY | 2024-12-26 17:56 | XMS_ITS | Encounter Summary ---
Author Organization [facility] Address [address] [place] [address] [place] [address] Phone Care Team Providers Care Classifier Tender Name Role Phone Jacquelyn Chandler MD Primary Care Provider Jessy Andersen PARALEGAL INSTRUCTOR Primary Care Provider Jessy Andersen PARALEGAL INSTRUCTOR Primary Care Provider Encounter Details Date Type Department Care Team (Late st Contact Info) Description 09/26/2021 Procedure Pass [facility], Ct Scan - [address] [address] Social History Tobacco Use Types Packs/Day Years [...] Contact Info) Description 09/28/2024 Procedure Pass [address] [place] [address] 01/23/2025 2:45 PM EST Office Visit [facility] 10 [place] [address] Unknown, Unknown, Nat Marquez PA-C [address] [address] 05/10/2025 9:15 AM EDT Appointment [address] [place] [address] Jessy Andersen NP [address] [place] [address] documented as of this encounter Visit Diagnoses Not on filedocumented in this encounter Additional Health Concerns Infection Onset Date Last Indicated Resolved Time CoV-Risk 12/21/2021 12/21/2021 01/01/2022 1:22 AM EDT Assessment Noted Time PHQ-2 Depression Total Score: 0 07/30/19 10:09 AM EDT documented as of this encounter Care Teams Classifier Tender Relationship Specialty Start Date End Date Jacquelyn Chandler MD [address] [place] [address] PCP - General Internal Medicine 12/01/17 01/28/23 Jessy Andersen NP [address] [place] [address] PCP - General Nurse Practitioner 01/29/23 12/15/24 Jessy Andersen NP [address] [place] [address] [facility] [place] [address] PCP - General Nurse Practitioner 12/16/24 documented as of this encounter Additional Source Comments The information contained in this document represents components of the legal health record. It is not the complete legal health record.[facility]
--- OUTSIDE RECORDS SUMMARY | 2024-12-26 17:57 | XMS_ITS | Encounter Summary ---
Author Organization [facility] Address [address] [place] [address] [address] [place] [address] Phone Care Team Providers Care Hides Soaker Name Role Phone Jessy Andersen LEATHER STAMPER Primary Care Provider Jessy Andersen LEATHER STAMPER Primary Care Provider Encounter Details Date Type Department Care Team (Late st Contact Info) Description 01/29/2023 Procedure Pass [facility] - [address] [place] [address] Social History Tobacco Use Types Packs/Day Years [...] st Contact Info) Description 09/28/2024 Procedure Pass [address] [place] [address] 01/23/2025 2:45 PM EST Office Visit [facility] [address] [place] [address] Unknown, Unknown, Nat Marquez PA-C [address] [place] [address] [email or web address] 05/10/2025 9:15 AM EDT Appointment [address] [place] [address] Jessy Andersen NP [address] [place] [address] documented as of this encounter Visit Diagnoses Not on filedocumented in this encounter Additional Health Concerns Assessment Noted Time PHQ-2 Depression Total Score: 0 09/02/19 23 10:16 AM EDT documented as of this encounter Care Teams Hides Soaker Relationship Specialty Start Date End Date Jessy Andersen NP PCP - General Nurse Practitioner 01/29/23 12/15/24 Jessy Andersen NP [address] [place] [address] PCP - General Nurse Practitioner 12/16/24 documented as of this encounter Additional Source Comments The information contained in this document represents components of the legal health record. It is not the complete legal health record.[facility]
--- OUTSIDE RECORDS SUMMARY | 2024-12-26 17:57 | XMS_ITS | Clinical Summary ---
Author Organization [employer] Address [address] [facility] 7t [place] [address] Care Team Providers Care Kitchen Operator Name Role Phone Nathaly Jessy AUSTIN Primary Care Provider [phone] Allergies Active Allergy Reactions Criticality Noted Date [...] and at bedtime for wheezing. 180 mL Active Nebulizer miscIndications:M ild intermittent asthma with exacerbation 1 Units if needed (asthma). 1 each 025 Active atorvastatin (Lipitor) 20 MG tabletIndications :Hyperlipidemia, unspecified hyperlipidemia type TAKE 1 TABLET BY MOUTH AT BEDTIME 90 tablet 3 025 Active nabumetone (Relafen) 500 MG tabletIndications :Fibromyalgia TAKE 1 TABLET (500 MG) BY MOUTH ONCE PER DAY. TAKE WITH FOOD 90 tablet Active fluticasone (Flonase) 50 MCG/ACT nasal sprayIndications: Mild persistent asthma without complication ADMINISTER 1 SPRAY INTO EACH NOSTRIL ONCE PER DAY. SHAKE GENTLY. CLEAN TIP AND REPLACE CAP. 48 mL 1 Active Respiratory Therapy Supplies (Nebulizer Mask Adult/Tubing) miscIndications:M oderate persistent asthma with acute exacerbation 1 Units Every 4-6 hours as needed (asthma). 1 each Active doxycycline (Vibramycin) 100 MG capsuleIndication s:Acute non-recurrent sinusitis, unspecified location Take 1 capsule (100 mg) by mouth 2 times daily for 7 days. Take with at least 8 ounces (large glass) of water, do not lie down for 30 minutes after 14 capsule 2024 Active Respiratory Therapy Supplies (Nebulizer Mask Adult/Tubing) miscIndications:M ild intermittent asthma with exacerbation 1 Units Every 4-6 hours as needed (asthma). 1 each 025 2024 Discontinued fluticasone (Flonase) 50 MCG/ACT nasal spray ADMINISTER 1 SPRAY INTO EACH NOSTRIL ONCE PER DAY. SHAKE GENTLY. CLEAN TIP AND REPLACE CAP. 48 mL 1 025 2024 Discontinued Active Problems Problem Noted Date Diagnosed Date ILD (interstitial lung disease) (CMS/HCC) 2024 Hepatic steatosis 10/03/2024 Fibromyalgia 12/23/2023 Elevated rheumatoid [...] Encounters Date Type Department Care Team Description 12/22/2024 11:40 AM EDT Office Visit [facility] [address] [place] [address] [place], [place] [facility] Acute non-recurrent sinusitis, unspecified location (Primary Dx); Hordeolum externum of right lower eyelid; Moderate persistent asthma with acute exacerbation 12/16/2024 Refill [facility] [address] [place] [address] [place], [place] [facility] Mild persistent asthma without complication (Primary Dx) 11/03/2024 Orders Only [facility] [address] [place] [address] [place], [place] [facility] 10/17/2024 Refill [facility] [address] [place] [address] [place], [place] [facility] Fibromyalgia 10/10/[address] [address] [facility] Results 10/05/2024 Results Follow-Up [facility] [address] [facility] [place] [address] [place], [place], [facility] XR bone density w SPECT lumbar 10/03/2024 Results Follow-Up [facility] [address] [facility] [place] [address] [place], [place], [facility] US Abdomen Limited, Helicobacter pylori, Urea Breath Test [id number] 10/03/2024 Telephone [facility] [address] [facility] [place] [address] [place], [place], [facility] Results from Last 3 Months Immunizations Immunization Administration [...] the past 12 months, has t he [employer], gas, oil or water company threatened to [...] F) 12/22/2024 11:46 AM EDT Respiratory Rate 18 11/10/2022 2:48 PM EDT Oxygen Saturation 95% 12/22/2024 11:46 AM EDT Inhaled Oxygen Concentration - - Weight 74.8 kg (165 lb) 12/22/2024 11:46 AM EDT Height 162.6 cm (5' 4 ) 12/22/2024 11:46 AM EDT Body Mass Index 28.32 12/22/2024 11:46 AM EDT Plan of Treatment Upcoming Encounters Date Type Department Care Team (Late st Contact Info) Description 03/24/2025 11:40 AM EST Office Visit [facility] [place] [address] [place] [address] [facility] [address] [place] [address] Health Maintenance Due Date Last Done Comments [...] 25 SDOH Screening 06/22/2025 06/22/2024 Tobacco Screening 12/22/2025 12/22/2024 Colonoscopy 08/12/2028 08/12/2018 Colorectal Cancer Screening 08/12/2028 [...] Associated Diagnosis Comments SED RATE BY MODIFIED ADRIANAREN Routine 11/02/2024 2:06 PM EDT CBC WITH [...] present Nausea and vomiting, unspecified vomiting type LIPID PANEL, STANDARD Routine 12/16/2023 Hyperlipidemia, unspecified hyperlipidemia type HM MAMMOGRAPHY Routine 02/03/2023 HM COLONOSCOPY Routine 08/12/2018 from Last 3 Months or Most Recently Relevant to Health Maintenance Results * Sed Rate by Modified Michael (11/02/2024 2:06 PM EDT) Blood Venous blood specimen / Unknown Result [facility] LAB BLOOD ORDERABLES Ana l Result * CBC auto differential (11/02/2024 2:06 PM EDT) Blood Venous blood specimen / Unknown Result [facility] LAB BLOOD ORDERABLES Ana l Result * Referral to Pulmonology (11/02/2024) [facility] OUTPATIENT REFERRAL ORDER GABBI Final Result * XR bone density w SPECT lumbar (10/04/2024) Anatomical Region Laterality Modality L-spine N/A Radiographic Yolie ging Result [facility] IMG DXA PROCEDURES Final Result * Helicobacter pylori, Urea Breath Test [id number] (10/04/2024) Breath (Breath) Result [facility] LAB BODY FLUIDS AND STOOL S ORDERABLES Final Result Performing Organization Address [facility] Co de Phone Number EXTERNAL LAB * US Abdomen Limited (10/03/2024) Anatomical Region Laterality Modality Abdomen Ultrasound [facility] IMG US PROCEDURES Final R esult * Lipid Panel, Standard (12/16/2023) Blood Venous blood specimen / Unknown [facility] LAB BLOOD ORDERABLES Ana l Result Performing Organization Address [facility] Co de Phone Number EXTERNAL LAB * Mammography (02/03/2023) Anatomical Region Laterality Modality Other [facility] Edited Result - Final * Colonoscopy (08/12/2018) Colonoscopy Normal Normal [facility] HEALTH MAINTENANCE Final Result from Last 3 Months or Most Recently Relevant to Health Maintenance Insurance [facility] DUAL COMPLETE [facility] STANDARD Care Teams Kitchen Operator Relationship Specialty Start Date End Date [facility] [address] [place] [address] PCP - General Family Medicine 10/01/22
--- OUTSIDE RECORDS SUMMARY | 2024-12-26 17:57 | XMS_ITS | Encounter Summary ---
Author Organization [facility] Address [address] [facility] [address] [place] [address] Phone Care Team Providers Care Digital Developer Name Role Phone Dinh Keane ONCOLOGY REGISTRAR Primary Care Provider Dinh Keane ONCOLOGY REGISTRAR Primary Care Provider Encounter Details Date Type Department Care Team (Late st Contact Info) Description 12/23/2023 Transcribe Orders Virtual Department [address] [place] [address] Dinh Keane NP [address] [place] [address] Screening for osteoporosis (Primary Dx); Chronic bilateral [...] st Contact Info) Description 09/28/2024 Procedure Pass [address] [place] [address] 01/23/2025 2:45 PM EST Office Visit [facility] [address] [place] [address] Unknown, Unknown, Nat Marquez PA-C [address] [place] [address] 05/10/2025 9:15 AM EDT Appointment [address] [place] [address] Dinh Keane NP [address] [place] [address] documented as of this encounter Results * BD DXA AXIAL (SPINE) WITH HIP (10/04/2024 10:41 AM EDT) Anatomical Region Laterality Modality Bone Density Bone Density 10/04/2024 10:3 0 AM EDT Impressions 10/05/2024 12:30 PM EDT Interpretation: Normal bone mineral density. Narrative 10/05/2024 12:30 PM EDT Referred By: DINH KENAE Indications: Osteoporosis Scanner: HoloGlycoVaxyn Horizon A with serial# of [id number] located at [facility] Bone Density Scan (DXA) 10/04/24 Details [...] -2.5), or Osteoporosis (T-score <= -2.5). At [facility], T-scores are compared to peak bone [...] Referred By: DINH KEANE Indications: Osteoporosis Scanner: HoloCivatech Oncology A with serial# of [id number] located at [facility] Bone Density Scan (DXA) 10/04/24 Details [...] -2.5), or Osteoporosis (T-score <= -2.5). At [facility], T-scores are compared to peak bone [...] Normal bone mineral density. us Dinh Keane ONCOLOGY REGISTRAR IMG BD BONE DENSITY DE XA Final [...] there is normal echogenicity. The right kidney yqkduina96.6 cm in length. There is no evidence [...] bladder. Post void residual volumemeasuring 17 mL's. [facility] Tyra Keane NP IMG US RENAL Final Result documented in [...] as of this encounter Care Teams Digital Developer Relationship Specialty Start Date End Date Dinh Keane NP PCP - General Nurse Practitioner 01/29/23 12/15/24 [facility] [address] [place] [address] PCP - General Nurse Practitioner 12/16/24 documented as of this encounter Additional Source Comments The information contained in this document represents components of the legal health record. It is not the complete legal health record.[facility]
--- OUTSIDE RECORDS SUMMARY | 2024-12-26 17:57 | XMS_ITS | Encounter Summary ---
Author Organization [facility] Address [address] [place] [address] [place] [address] Phone Care Team Providers Care Intelligence Chief Name Role Phone Jessy Andersen TUBING MILL SETTER Primary Care Provider Jessy Andersen TUBING MILL SETTER Primary Care Provider Reason for Referral * MRI/CAT Scan - Closed Specialty Diagnoses / Procedures Referred By Gabriele canales Referred To Contact Radiology Diagnoses Memory problem Balance problem Tremor Procedures MRI Brain Jessy Andersen NP [address] [place] [address] Phone: tel: fax: Referral ID Status Reason Start Date Expiration Date Visits Re quested Visits Authorized [id number] Closed 06/22/2024 06/22/2025 1 1 Encounter Details Date Type Department Care Team (Late st Contact Info) Description 06/22/2024 Transcribe Orders Virtual Department [address] [place] [address] Jessy Andersen NP [address] [place] [address] Memory problem (Primary Dx); Balance problem; Tremor [...] Contact Info) Description 09/28/2024 Procedure Pass [address] [place] [address] 01/23/2025 2:45 PM EST Office Visit [facility] [address] [place] [address] Unknown, Unknown, Nat Marquez PA-C [address] [address] 05/10/2025 9:15 AM EDT Appointment [address] [place] [address] Jessy Andersen NP [address] [place] [address] documented as of this encounter Results * [...] regional pattern of volume loss. Jessy Andersen TUBING MILL SETTER IMG MR HEAD/NECK Final Result documented in [...] documented as of this encounter Care Teams Intelligence Chief Relationship Specialty Start Date End Date Jessy Andersen NP PCP - General Nurse Practitioner 01/29/23 12/15/24 Jessy Andersen NP [address] [place] [address] PCP - General Nurse Practitioner 12/16/24 documented as of this encounter Additional Source Comments The information contained in this document represents components of the legal health record. It is not the complete legal health record.[facility]
--- OUTSIDE RECORDS SUMMARY | 2024-12-26 17:57 | XMS_ITS | Encounter Summary ---
Author Organization [facility] Address [address] [place] [address] [place] [address] Phone Care Team Providers Care Assistant Mechanic Name Role Phone Jacquelyn Chandler MD Primary Care Provider Jessy Andersen CATEGORY DEVELOPMENT MANAGER Primary Care Provider Jessy Andersen CATEGORY DEVELOPMENT MANAGER Primary Care Provider Encounter Details Date Type Department Care Team (Late st Contact Info) Description 09/17/2020 Procedure Pass [facility] - [address] [place] [address] Social History Tobacco Use Types Packs/Day Years [...] Contact Info) Description 09/28/2024 Procedure Pass [address] [place] [address] 01/23/2025 2:45 PM EST Office Visit [facility] [address] [place] [address] Unknown, Unknown, Nat Marquez PA-C [address] [address] 05/10/2025 9:15 AM EDT Appointment [address] [place] [address] Jessy Andersen NP [address] [place] [address] documented as of this encounter Visit Diagnoses Not on filedocumented in this encounter Additional Health Concerns Infection Onset Date Last Indicated Resolved Time CoV-Risk 12/21/2021 12/21/2021 01/01/2022 1:22 AM EDT documented as of this encounter Care Teams Assistant Mechanic Relationship Specialty Start Date End Date Jacquelyn Chandler MD [address] [place] [address] PCP - General Internal Medicine 12/01/17 01/28/23 Jessy Andersen NP [address] [place] [address] PCP - General Nurse Practitioner 01/29/23 12/15/24 Jessy Andersen NP [address] [place] [address] PCP - General Nurse Practitioner 12/16/24 documented as of this encounter Additional Source Comments The information contained in this document represents components of the legal health record. It is not the complete legal health record.[facility]
--- OUTSIDE RECORDS SUMMARY | 2024-12-26 17:57 | XMS_ITS | Encounter Summary ---
Author Organization [facility] Address [address] [place] [address] Phone Care Team Providers Care Barback Name Role Phone Jessy Andersen KENNEL ASSISTANT Primary Care Provider Jessy Andersen KENNEL ASSISTANT Primary Care Provider Encounter Details Date Type Department Care Team (Late st Contact Info) Description 06/22/2024 Procedure Pass [facility], [address] [address] Social History Tobacco Use Types Packs/Day Years [...] Contact Info) Description 09/28/2024 Procedure Pass [address] [place] [address] 01/23/2025 2:45 PM EST Office Visit [facility] [address] [place] [address] Unknown, Unknown, Nat Marquez PA-C [address] [place] [phone] [email or web address] 05/10/2025 9:15 AM EDT Appointment [address] [place] [address] Jessy Andersen NP [address] [place] [address] documented as of this encounter Visit Diagnoses Not on filedocumented in this encounter Additional Health Concerns Assessment Noted Time PHQ-2 Depression Total Score: 0 09/02/19 23 10:16 AM EDT documented as of this encounter Care Teams Barback Relationship Specialty Start Date End Date Jessy Andersen NP PCP - General Nurse Practitioner 01/29/23 12/15/24 Jessy Andersen NP [address] [place] [address] PCP - General Nurse Practitioner 12/16/24 documented as of this encounter Additional Source Comments The information contained in this document represents components of the legal health record. It is not the complete legal health record.[facility]
--- OUTSIDE RECORDS SUMMARY | 2024-12-26 17:57 | XMS_ITS | Encounter Summary ---
Author Organization [facility] Address [address] [place] [address] [place] [address] Phone Care Team Providers Care Transmitter Operator Name Role Phone Jacquelyn Chandler MD Primary Care Provider [facility] MANAGING SUPERVISOR Primary Care Provider [facility] ac[facility] MANAGING SUPERVISOR Primary Care Provider Encounter Details Date Type Department Care Team (Late st Contact Info) Description 04/02/2021 Transcribe Orders [address] [place] [address] Jacquelyn Chandler MD [address] [place] [address] Vitamin D deficiency, unspecified (Primary Dx); Encounter [...] Contact Info) Description 09/28/2024 Procedure Pass [address] [place] [address] 01/23/2025 2:45 PM EST Office Visit [facility] 10 [place] [address] Unknown, Unknown, Nat Marquez PA-C [address] [address] 05/10/2025 9:15 AM EDT Appointment [address] [place] [address] Jessy Andersen, AMBIKA [address] [place] [address] documented as of this encounter Results * ABO and Rh (04/02/2021 9:42 AM EST) ABO/Rh A Positive [facility] Resulting Agency [facility] Blood 04/02/2021 9:42 AM EST 04/02/2021 9:45 AM EST us Jacquelyn Chandler MD BLOOD BANK TEST ORDERABLES F inal Result [address] [address] * (ABNORMAL) 25-OH vitamin D (04/02/2021 9:42 AM EST) 25 OH VIT D (TOTAL) 24(L) 30 - 60 ng/mL [facility] Blood 04/02/2021 9:42 AM EST 04/02/2021 9:45 AM EST us Jacquelyn Chandler MD LAB BLOOD ORDERABLES Final R esult [facility] [address] [place] [address] documented in this encounter Visit Diagnoses Diagnosis Vitamin D deficiency, unspecified- Primary Encounter for blood typing documented in this encounter Additional Health Concerns Infection Onset Date Last Indicated Resolved Time CoV-Risk 12/21/2021 12/21/2021 01/01/2022 1:22 AM EDT documented as of this encounter Care Teams Transmitter Operator Relationship Specialty Start Date End Date Jacquelyn Chandler MD [address] [place] [address] [email or web address] PCP - General Internal Medicine 12/01/17 01/28/23 Jessy Andersen NP [address] [place] [address] PCP - General Nurse Practitioner 01/29/23 12/15/24 Jessy Andersen NP [address] [place] [address] PCP - General Nurse Practitioner 12/16/24 documented as of this encounter Additional Source Comments The information contained in this document represents components of the legal health record. It is not the complete legal health record.[facility]
--- OUTSIDE RECORDS SUMMARY | 2024-12-26 17:57 | XMS_ITS | Encounter Summary ---
Author Organization [facility] Address [address] [place] [address] Phone Care Team Providers Care Virtual Office Assistant Name Role Phone Jacquelyn Chandler MD Primary Care Provider eJssy Andersen POWER SEWING MACHINE OPERATOR Primary Care Provider Jessy Andersen POWER SEWING MACHINE OPERATOR Primary Care Provider Encounter Details Date Type Department Care Team (Late st Contact Info) Description 08/09/2020 Ancillary Orders [facility],Outside Imaging [address] [place], [place] [id number] System, Provider Not In, [place] [address] Social History Tobacco Use Types Packs/Day Years [...] Contact Info) Description 09/28/2024 Procedure Pass [address] [place] [address] 01/23/2025 2:45 PM EST Office Visit [facility] 10 [place] [address] Unknown, Unknown, Nat Marquez PA-C [address] [address] 05/10/2025 9:15 AM EDT Appointment [address] [place] [address] Jessy Andersen NP [address] [place] [address] documented as of this encounter Results * [...] documented as of this encounter Care Teams Virtual Office Assistant Relationship Specialty Start Date End Date Jacquelyn Chandler MD [address] [place] [address] [address] [facility] [place] [address] PCP - General Internal Medicine 12/01/17 01/28/23 Jessy Andersen NP [address] [place] [address] [address] [facility] [address] PCP - General Nurse Practitioner 01/29/23 12/15/24 Jessy Andersen NP [address] [place] [address] PCP - General Nurse Practitioner 12/16/24 documented as of this encounter Additional Source Comments The information contained in this document represents components of the legal health record. It is not the complete legal health record.[facility]
--- OUTSIDE RECORDS SUMMARY | 2024-12-26 17:57 | XMS_ITS | Encounter Summary ---
Author Organization [facility] Address [address] [place] [address] [address] [place] [address] Phone Care Team Providers Care Siebel Architect Name Role Phone Jessy Andersen [employer]STER [employer]OD [employer]ODUCTS Primary Care Provider Jessy Andersen [employer]ODU[employer] Primary Care Provider Encounter Details Date Type Department Care Team (Late st Contact Info) Description 03/11/2024 Ancillary Orders [facility], X-Ray - [address] [place] [address] Jessy Andersen NP [address] [place] [address] Acute cough (Primary Dx) Social History Tobacco [...] Contact Info) Description 09/28/2024 Procedure Pass [address] [place] [address] 01/23/2025 2:45 PM EST Office Visit [facility] [address] [place] [address] Unknown, Unknown, Nat Marquez, DONN [address] [place] [address] 05/10/2025 9:15 AM EDT Appointment [address] [place] [address] Jessy Andersen NP [address] [place] [address] documented as of this encounter Results * [...] clinician's provided indication for this examination in [facility]: Cough COMPARISON: 07/03/2022, 01/17/2022 FINDINGS: Devices/Tubes/Lines: None. Lungs: Few linear opacities in the left base. Pleura: No pleural effusion or pneumothorax. Heart/Mediastinum: Stable size and contour of the cardiac silhouette. Bones/Soft Tissues: Multilevel spondylosis and bilateral acromioclavicular arthropathy. Procedure Note Stella Velasquez MD - 03/11/2024 XR CHEST PA AND LATERAL 2 VIEWS Referring clinician's provided indication for this examination in [facility]:Cough COMPARISON: 07/03/2022, 01/17/2022 FINDINGS: Devices/Tubes/Lines: None. [...] documented as of this encounter Care Teams Siebel Architect Relationship Specialty Start Date End Date Jessy Andersen NP PCP - General Nurse Practitioner 01/29/23 12/15/24 Jessy Andersen NP [address] [place] [address] PCP - General Nurse Practitioner 12/16/24 documented as of this encounter Additional Source Comments The information contained in this document represents components of the legal health record. It is not the complete legal health record.[facility]
--- OUTSIDE RECORDS SUMMARY | 2024-12-26 17:57 | XMS_ITS | Encounter Summary ---
Author Organization [facility] Address [address] [place] [address] [place] [address] Phone Care Team Providers Care Geographic Information Systems Engineer Name Role Phone Jacquelyn Chandler MD Primary Care Provider Jessy Andersen CORE ANALYSIS OPERATOR Primary Care Provider Jessy Andersen CORE ANALYSIS OPERATOR Primary Care Provider Encounter Details Date Type Department Care Team (Latest Contact Info) Description 03/08/2019 Transcribe Orders [address] [place] [address] Jacquelyn Chandler MD [address] [place] [address] Hyperlipidemia, unspecified hyperlipidemia type (Primary Dx) Social [...] 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 [place] Not on file Not on file Not on file documented as of this encounter Plan of Treatment Upcoming Encounters Date Type Department Care Team (Late st Contact Info) Description 09/28/2024 Procedure Pass [address] [place] [address] 01/23/2025 2:45 PM EST Office Visit [facility] 10 [place] [address] Unknown, Unknown, Nat Marquez PA-C [address] [address] 05/10/2025 9:15 AM EDT Appointment [address] [place] [address] Jessy Andersen, AMBIKA [address] [place] [address] documented as of this encounter Results * (ABNORMAL) Lipid panel (03/08/2019 8:09 AM EST) HDL 44 mg/dL [facility] Comment: Interpretation <40 mg/dL: Low HDL cholesterol (major risk factor for CHD) Greater than or equal to 60 mg/dL: High HDL cholesterol ( negative risk factor for CHD) HDL - cholesterol is affected by a number of factors, e.g. smoking, excerise, hormones, sex and age. CHOLESTEROL 205 0 - 240 mg/dL [facility] TRIGLYCERIDES 220(H) 30 - 160 mg/dL [facility] LDL 117 50 - 129 mg/dL [facility] Comment: LDL levels in terms of risk for coronary heart disease: <100 mg/dL: Optimal 100-129 mg/dL: Near or above optimal 130-159 mg/dL: Borderline high 160-189 mg/dL: High >190 mg/dL: Very High CARDIAC RISK RATIO 4.7(H) 3.3 - 4.4 C [facility] Blood 03/08/2019 8:09 AM EST 03/08/2019 8:15 AM EST us Jacquelyn Chandler MD LAB BLOOD ORDERABLES Final R esult [facility] [address] [place] [address] documented in this encounter Visit Diagnoses Diagnosis Hyperlipidemia, unspecified hyperlipidemia type- Primary documented in this encounter Additional Health Concerns Infection Onset Date Last Indicated Resolved Time CoV-Risk 12/21/2021 12/21/2021 01/01/2022 1:22 AM EDT documented as of this encounter Care Teams Geographic Information Systems Engineer Relationship Specialty Start Date End Date Jacquelyn Chandler MD [address] [place] [address] [email or web address] PCP - General Internal Medicine 12/01/17 01/28/23 Jessy Andersen NP [address] [place] [phone] PCP - General Nurse Practitioner 01/29/23 12/15/24 Jessy Andersen NP [address] [place] [address] PCP - General Nurse Practitioner 12/16/24 documented as of this encounter Additional Source Comments The information contained in this document represents components of the legal health record. It is not the complete legal health record.[facility]
--- OUTSIDE RECORDS SUMMARY | 2024-12-26 17:57 | XMS_ITS | Encounter Summary ---
Author Organization [facility] Address [address] [place] [address] [place] [address] Phone Care Team Providers Care Aging Room Hand Name Role Phone Jacquelyn Chandler MD Primary Care Provider Jessy Andersen OIL WELL FISHING TOOL OPERATOR Primary Care Provider Jessy Andersen OIL WELL FISHING TOOL OPERATOR Primary Care Provider Encounter Details Date Type Department Care Team (Late st Contact Info) Description 08/14/2021 Procedure Pass [facility] - [address] [place] [address] Social History Tobacco Use Types Packs/Day Years [...] Contact Info) Description 09/28/2024 Procedure Pass [address] [place] [address] 01/23/2025 2:45 PM EST Office Visit [facility] 10 [place] [address] Unknown, Unknown, Nat Marquez PA-C [address] [address] 05/10/2025 9:15 AM EDT Appointment [address] [place] [address] Jessy Andersen NP [address] [place] [address] documented as of this encounter Visit Diagnoses Not on filedocumented in this encounter Additional Health Concerns Infection Onset Date Last Indicated Resolved Time CoV-Risk 12/21/2021 12/21/2021 01/01/2022 1:22 AM EDT Assessment Noted Time PHQ-2 Depression Total Score: 0 07/30/19 10:09 AM EDT documented as of this encounter Care Teams Aging Room Hand Relationship Specialty Start Date End Date Jacquelyn Chandler MD [address] [place] [address] PCP - General Internal Medicine 12/01/17 01/28/23 Jessy Andersen NP [address] [place] [address] PCP - General Nurse Practitioner 01/29/23 12/15/24 Jessy Andersen NP [address] [place] [address] PCP - General Nurse Practitioner 12/16/24 documented as of this encounter Additional Source Comments The information contained in this document represents components of the legal health record. It is not the complete legal health record.[facility]
--- OUTSIDE RECORDS SUMMARY | 2024-12-26 17:57 | XMS_ITS | Encounter Summary ---
Author Organization [facility] Address [address] [place] [address] [place] [address] Phone Care Team Providers Care Supervisor [employer] Name Role Phone Jacquelyn Chandler MD Primary Care Provider Jessy Andersen ATG JAVA DEVELOPER Primary Care Provider Jessy Andersen ATG JAVA DEVELOPER Primary Care Provider Encounter Details Date Type Department Care Team (Latest Contact Info) Description 10/09/2020 Transcribe Orders [address] [place] [address] Jacquelyn Chandler MD [address] [place] [address] Vitamin D deficiency, unspecified (Primary Dx); Hyperlipidemia, [...] Contact Info) Description 09/28/2024 Procedure Pass [address] [place] [address] 01/23/2025 2:45 PM EST Office Visit [facility] 10 [place] [address] Unknown, Unknown, Nat Marquez, DONN 10 [facility] 2 [place] [address] 05/10/2025 9:15 AM EDT Appointment [address] [place] [address] Jessy Andersen, AMBIKA [address] [place] [address] documented as of this encounter Results * (ABNORMAL) Lipid panel (10/09/2020 10:28 AM EDT) HDL 49 mg/dL [facility] Comment: Interpretation <40 mg/dL: Low HDL cholesterol (major risk factor for CHD) Greater than or equal to 60 mg/dL: High HDL cholesterol ( negative risk factor for CHD) HDL - cholesterol is affected by a number of factors, e.g. smoking, excerise, hormones, sex and age. CHOLESTEROL 182 0 - 240 mg/dL [facility] TRIGLYCERIDES 164(H) 30 - 160 mg/dL [facility] LDL 100 50 - 129 mg/dL [facility] Comment: LDL levels in terms of risk for coronary heart disease: <100 mg/dL: Optimal 100-129 mg/dL: Near or above optimal 130-159 mg/dL: Borderline high 160-189 mg/dL: High >190 mg/dL: Very High CARDIAC RISK RATIO 3.7 3.3 - 4.4 C [facility] Blood 10/09/2020 10:2 8 AM EDT 10/09/2020 10:32 AM EDT us Jacquelyn Chandler MD LAB BLOOD ORDERABLES Final R esult Performing Organization Address City/[facility]/ZIP Co de Phone Number [address] [address] * (ABNORMAL) 25-OH vitamin D (10/09/2020 10:28 AM EDT) 25 OH VIT D (TOTAL) 28(L) 30 - 60 ng/mL [facility] Blood 10/09/2020 10:2 8 AM EDT 10/09/2020 10:32 AM EDT us Jacquelyn Chandler MD LAB BLOOD ORDERABLES Final R esult Performing Organization Address [facility]/ZIP Co de Phone Number [address] [address] documented in this encounter Visit Diagnoses Diagnosis Vitamin D deficiency, unspecified- Primary Hyperlipidemia, unspecified hyperlipidemia type documented in this encounter Additional Health Concerns Infection Onset Date Last Indicated Resolved Time CoV-Risk 12/21/2021 12/21/2021 01/01/2022 1:22 AM EDT documented as of this encounter Care Teams Supervisor [employer] Relationship Specialty Start Date End Date Jacquelyn Chandler MD [address] [place] [address] PCP - General Internal Medicine 12/01/17 01/28/23 Jessy Andersen NP [address] [place] [address] PCP - General Nurse Practitioner 01/29/23 12/15/24 Jessy Andersen NP [address] [place] [address] PCP - General Nurse Practitioner 12/16/24 documented as of this encounter Additional Source Comments The information contained in this document represents components of the legal health record. It is not the complete legal health record.[facility]
--- OUTSIDE RECORDS SUMMARY | 2024-12-26 17:57 | XMS_ITS | Encounter Summary ---
Author Organization [facility] Address [address] [place] [address] Phone Care Team Providers Care Geodetic Engineer Name Role Phone Jacquelyn Chandler MD Primary Care Provider Jessy Andersen HEMMER AUTOMATIC Primary Care Provider Jessy Andersen HEMMER AUTOMATIC Primary Care Provider Encounter Details Date Type Department Care Team (Late st Contact Info) Description 09/22/2022 Procedure Pass [facility] 30 [place] [address] Social History Tobacco Use Types Packs/Day Years [...] st Contact Info) Description 09/28/2024 Procedure Pass [address] [place] [address] 01/23/2025 2:45 PM EST Office Visit [facility] [address] [place] [address] Unknown, Unknown, Nat Marquez PA-C [address] [place] [address] [email or web address] 05/10/2025 9:15 AM EDT Appointment [address] [place] [address] Jessy Andersen, AMBIKA [address] [place] [address] documented as of this encounter Visit Diagnoses Not on filedocumented in this encounter Additional Health Concerns Assessment Noted Time PHQ-2 Depression Total Score: 0 09/02/19 23 10:16 AM EDT documented as of this encounter Care Teams Geodetic Engineer Relationship Specialty Start Date End Date Jacquelyn Chandler MD [address] [place] [address] [place] [address] [email or web address] PCP - General Internal Medicine 12/01/17 01/28/23 Jessy Andersen NP [address] [address] PCP - General Nurse Practitioner 01/29/23 12/15/24 Jessy Andersen NP 70 [place] [address] PCP - General Nurse Practitioner 12/16/24 documented as of this encounter Additional Source Comments The information contained in this document represents components of the legal health record. It is not the complete legal health record.[facility]
--- OUTSIDE RECORDS SUMMARY | 2024-12-26 17:57 | XMS_ITS | Encounter Summary ---
Author Organization [facility] Address [address] [place] [address] [place] [address] Phone Care Team Providers Care Freight Associate Name Role Phone Jacquelyn Chandler MD Primary Care Provider Jessy Andersen EARTH SCIENCE TECHNICAL OFFICER Primary Care Provider Jessy Andersen EARTH SCIENCE TECHNICAL OFFICER Primary Care Provider Encounter Details Date Type Department Care Team (Late st Contact Info) Description 09/28/2019 Procedure Pass [facility] Scan - [address] [address] Social History Tobacco Use Types Packs/Day Years [...] st Contact Info) Description 09/28/2024 Procedure Pass [address] [place] [address] 01/23/2025 2:45 PM EST Office Visit [facility] 10 [place] [address] Unknown, Unknown, Nat Marquez PA-C [address] [address] 05/10/2025 9:15 AM EDT Appointment [address] [place] [address] Jessy Andersen NP 73 [place] [address] documented as of this encounter Visit Diagnoses Not on filedocumented in this encounter Additional Health Concerns Infection Onset Date Last Indicated Resolved Time CoV-Risk 12/21/2021 12/21/2021 01/01/2022 1:22 AM EDT documented as of this encounter Care Teams Freight Associate Relationship Specialty Start Date End Date Jacquelyn Chandler MD [address] [place] [address] [email or web address] PCP - General Internal Medicine 12/01/17 01/28/23 Jessy Andersen NP [address] [place] [address] PCP - General Nurse Practitioner 01/29/23 12/15/24 Jessy Andersen NP [address] [place] [address] PCP - General Nurse Practitioner 12/16/24 documented as of this encounter Additional Source Comments The information contained in this document represents components of the legal health record. It is not the complete legal health record.[facility]
--- OUTSIDE RECORDS SUMMARY | 2024-12-26 17:57 | XMS_ITS | Encounter Summary ---
Author Organization [facility] Address [address] [place] [address] [place] [address] Phone Care Team Providers Care Nailer Machine Name Role Phone Jacquelyn Chandler MD Primary Care Provider [facility] MILL WORKER Primary Care Provider Jessy Andersen MILL WORKER Primary Care Provider Encounter Details Date Type Department Care Team (Late st Contact Info) Description 12/24/2019 Procedure Pass [address] [place] [address] Social History Tobacco Use Types Packs/Day Years [...] Contact Info) Description 09/28/2024 Procedure Pass [address] [place] [address] 01/23/2025 2:45 PM EST Office Visit [facility] 10 [place] [address] Unknown, Unknown, Nat Marquez PA-C [address] [address] 05/10/2025 9:15 AM EDT Appointment [address] [place] [address] Jessy Andersen NP 73 [place] [address] documented as of this encounter Visit Diagnoses Not on filedocumented in this encounter Additional Health Concerns Infection Onset Date Last Indicated Resolved Time CoV-Risk 12/21/2021 12/21/2021 01/01/2022 1:22 AM EDT documented as of this encounter Care Teams Nailer Machine Relationship Specialty Start Date End Date Jacquelyn Chandler MD [address] [place] [address] [email or web address] PCP - General Internal Medicine 12/01/17 01/28/23 Jessy Andersen NP [address] [place] [address] PCP - General Nurse Practitioner 01/29/23 12/15/24 Jessy Andersen NP [address] [place] [address] PCP - General Nurse Practitioner 12/16/24 documented as of this encounter Additional Source Comments The information contained in this document represents components of the legal health record. It is not the complete legal health record.[facility]
--- OUTSIDE RECORDS SUMMARY | 2024-12-26 17:57 | XMS_ITS | Encounter Summary ---
Author Organization [facility] Address [address] [place] [address] [place] [address] Phone Care Team Providers Care Clerical Clerk Name Role Phone Jacquelyn Chandler MD Primary Care Provider Jessy Andersen COMPLIANCE TESTER Primary Care Provider Jessy Andersen COMPLIANCE TESTER Primary Care Provider Reason for Referral * MRI/CAT Scan - Closed Specialty Diagnoses / Procedures Referred By Gabriele canales Referred To Contact Radiology Diagnoses Lower abdominal pain Procedures CT Abdomen/Pelvis Seth Jeter MD Phone: tel: fax: [email or web address] Referral ID Status Reason Start Date Expiration Date Visits Re quested Visits Authorized [id number] Closed 09/26/2021 09/26/2022 1 1 Encounter Details Date Type Department Care Team (Latest Contact Info) Description 09/26/2021 Transcribe Orders Virtual Department 30 [place] [address] Seth Jeter MD [address] [place] [phone] [email or web address] Lower abdominal pain (Primary Dx) Social History [...] Contact Info) Description 09/28/2024 Procedure Pass [address] [place] [address] 01/23/2025 2:45 PM EST Office Visit [facility] [address] [place] [address] Unknown, Unknown, Nat Marquez PA-C [address] [place] [address] [email or web address] 05/10/2025 9:15 AM EDT Appointment [address] [place] [address] Jessy Andersen, AMBIKA [address] [place] [address] documented as of this encounter Results * [...] IMPRESSION: No evidence of diverticulitis or appendicitis us Seth Jeter MD IMG CT ABD/PELVIS [...] documented as of this encounter Care Teams Clerical Clerk Relationship Specialty Start Date End Date Jacquelyn Chandler MD [address] [place] [address] [email or web address] PCP - General Internal Medicine 12/01/17 01/28/23 Jessy Andersen NP [address] [place] [address] PCP - General Nurse Practitioner 01/29/23 12/15/24 Jessy Andersen NP [address] [place] [address] PCP - General Nurse Practitioner 12/16/24 documented as of this encounter Additional Source Comments The information contained in this document represents components of the legal health record. It is not the complete legal health record.[facility]
--- OUTSIDE RECORDS SUMMARY | 2024-12-26 17:57 | XMS_ITS | Encounter Summary ---
Author Organization [facility] Address [address] [facility] [address] [place] [address] Phone Care Team Providers Care Sales Clerk Supervisor Name Role Phone Jessy Andersen COUNTRY PRINTER Primary Care Provider Jessy Andersen COUNTRY PRINTER Primary Care Provider Encounter Details Date Type Department Care Team (Late st Contact Info) Description 03/20/2023 Transcribe Orders Virtual Department 30 [place] [address] Jessy Andersen NP [address] [place] [address] Rheumatoid arthritis with positive rheumatoid factor, involving [...] Contact Info) Description 09/28/2024 Procedure Pass [address] [place] [address] 01/23/2025 2:45 PM EST Office Visit [facility] [address] [place] [address] Unknown, Unknown, Nat Marquez PA-C [address] [place] [address] 05/10/2025 9:15 AM EDT Appointment [address] [place] [address] Jessy Andersen NP [address] [place] [address] documented as of this encounter Visit Diagnoses Diagnosis Rheumatoid arthritis with positive rheumatoid factor, involving unspecified site- Primary Chronic pain of both knees documented in this encounter Additional Health Concerns Assessment Noted Time PHQ-2 Depression Total Score: 0 07/03/20 23 10:16 AM EDT documented as of this encounter Care Teams Sales Clerk Supervisor Relationship Specialty Start Date End Date Jessy Andersen NP PCP - General Nurse Practitioner 01/29/23 12/15/24 Jessy Andersen NP 70 [place] [address] PCP - General Nurse Practitioner 12/16/24 documented as of this encounter Additional Source Comments The information contained in this document represents components of the legal health record. It is not the complete legal health record.[facility]
--- OUTSIDE RECORDS SUMMARY | 2024-12-26 17:57 | XMS_ITS | Encounter Summary ---
Author Organization [facility] Address [address] [place] [address] [place] [address] Phone Care Team Providers Care Or Director Name Role Phone Jacquelyn Chandler MD Primary Care Provider Jessy Andersen BINDING STITCHER Primary Care Provider Jessy Andersen BINDING STITCHER Primary Care Provider Encounter Details Date Type Department Care Team (Late st Contact Info) Description 09/23/2021 Procedure Pass [facility] - [address] [place] [address] Social History Tobacco Use Types Packs/Day Years [...] Contact Info) Description 09/28/2024 Procedure Pass [address] [place] [address] 01/23/2025 2:45 PM EST Office Visit [facility] 10 [place] [address] Unknown, Unknown, Nat Marquez PA-C [address] [address] 05/10/2025 9:15 AM EDT Appointment [address] [place] [address] Jessy Andersen NP [address] [place] [address] documented as of this encounter Visit Diagnoses Not on filedocumented in this encounter Additional Health Concerns Infection Onset Date Last Indicated Resolved Time CoV-Risk 12/21/2021 12/21/2021 01/01/2022 1:22 AM EDT Assessment Noted Time PHQ-2 Depression Total Score: 0 07/30/19 10:09 AM EDT documented as of this encounter Care Teams Or Director Relationship Specialty Start Date End Date Jacquelyn Chandler MD [address] [place] [address] PCP - General Internal Medicine 12/01/17 01/28/23 Jessy Andersen NP [address] [place] [address] PCP - General Nurse Practitioner 01/29/23 12/15/24 Jessy Andersen NP [address] [place] [address] PCP - General Nurse Practitioner 12/16/24 documented as of this encounter Additional Source Comments The information contained in this document represents components of the legal health record. It is not the complete legal health record.[facility]
--- OUTSIDE RECORDS SUMMARY | 2024-12-26 17:57 | XMS_ITS | Encounter Summary ---
Author Organization [facility] Address [address] [place] [address] [place] [address] Phone Care Team Providers Care Production Intern Name Role Phone Jacquelyn Chandler MD Primary Care Provider Jessy Andersen BEE PRODUCER Primary Care Provider Jessy Andersen BEE PRODUCER Primary Care Provider Encounter Details Date Type Department Care Team (Late st Contact Info) Description 09/12/2020 Procedure Pass [facility] Echo Lab [address] [place] [address] Social History Tobacco Use Types Packs/Day Years [...] Contact Info) Description 09/28/2024 Procedure Pass [address] [place] [address] 01/23/2025 2:45 PM EST Office Visit [facility] 10 [place] [address] Unknown, Unknown, Nat Marquez PA-C [address] [address] 05/10/2025 9:15 AM EDT Appointment [address] [place] [address] Jessy Andersen NP 73 [place] [address] documented as of this encounter Visit Diagnoses Not on filedocumented in this encounter Additional Health Concerns Infection Onset Date Last Indicated Resolved Time CoV-Risk 12/21/2021 12/21/2021 01/01/2022 1:22 AM EDT documented as of this encounter Care Teams Production Intern Relationship Specialty Start Date End Date Jacquelyn Chandler MD [address] [place] [phone] [email or web address] PCP - General Internal Medicine 12/01/17 01/28/23 Jessy Andersen NP [address] [place] [address] PCP - General Nurse Practitioner 01/29/23 12/15/24 Jessy Andersen NP [address] [place] [address] PCP - General Nurse Practitioner 12/16/24 documented as of this encounter Additional Source Comments The information contained in this document represents components of the legal health record. It is not the complete legal health record.[facility]
--- OUTSIDE RECORDS SUMMARY | 2024-12-26 17:57 | XMS_ITS | Encounter Summary ---
Author Organization [facility] Address [address] [place] [address] Phone Care Team Providers Care Liberal Arts Teacher Name Role Phone Jessy Andersen HORSE RANCHER Primary Care Provider Jessy Andersen HORSE RANCHER Primary Care Provider Encounter Details Date Type Department Care Team (Late st Contact Info) Description 04/09/2023 Ancillary Orders Virtual Department [address] [place] [address] Jessy Andersen NP [address] [place] [address] Rheumatoid arthritis with positive rheumatoid factor, involving [...] Contact Info) Description 09/28/2024 Procedure Pass [address] [place] [address] 01/23/2025 2:45 PM EST Office Visit [facility] [address] [place] [address] Unknown, Unknown, Nat Marquez PA-C [address] [place] [address] 05/10/2025 9:15 AM EDT Appointment [address] [place] [address] Jessy Andersen NP [address] [place] [address] documented as of this encounter Results * [...] clinician's provided indication for this examination in [facility]: Outside Radiology Order; Chronic Pain of Both [...] clinician's provided indication for this examination in [facility]:Outside Radiology Order; Chronic Pain of Both Knees [...] bilaterally, 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 Jessy Andersen HORSE RANCHER IMG XR LOWER EXTREMITY Final Result documented [...] documented as of this encounter Care Teams Liberal Arts Teacher Relationship Specialty Start Date End Date Jessy Andersen NP PCP - General Nurse Practitioner 01/29/23 12/15/24 Jessy Andersen NP [address] [place] [address] PCP - General Nurse Practitioner 12/16/24 documented as of this encounter Additional Source Comments The information contained in this document represents components of the legal health record. It is not the complete legal health record.[facility]
--- OUTSIDE RECORDS SUMMARY | 2024-12-26 17:57 | XMS_ITS | Encounter Summary ---
Author Organization [facility] Address [address] [place] [address] [place] [address] Phone Care Team Providers Care Fibreglass Laminator Name Role Phone Jacquelyn Chandler MD Primary Care Provider [phone] [facility] SUPERVISOR GENERAL Primary Care Provider [facility] Jessy Tyra SUPERVISOR GENERAL Primary Care Provider Reason for Referral * Consultation (Elective) - Closed Specialty Diagnoses / Procedures Referred By Gabriele canales Referred To Contact Pulmonary Disease Jacquelyn Chandler MD Phone: tel: [email or web address] [address] [address] Phone: tel: Referral ID Status Reason Start Date Expiration Date Visits Re quested Visits Authorized [id number] Closed 06/21/2020 06/21/2021 1 1 Encounter Details Date Type Department Care Team ([facility] st Contact Info) Description 06/21/2020 Transcribe Orders [facility] Pulmonary, Allergy and Critical Care Medicine [address] [place] [address] Jacquelyn Chandler MD [address] [place] [phone] Social History Tobacco Use Types Packs/Day Years [...] Contact Info) Description 09/28/2024 Procedure Pass [address] [place] [address] 01/23/2025 2:45 PM EST Office Visit [facility] [address] [place] [address] Unknown, Unknown, Nat Marquez PA-C [address] [place] [address] 05/10/2025 9:15 AM EDT Appointment [address] [place] [address] Jessy Andersen, [place] [address] Scheduled Referrals Name Type Priority Associated Diagnoses Order Schedule Ambulatory referral to [facility] Pulmonology Outpatient Referral Routine Ordered: 06/21/2020 documented as of this encounter Visit Diagnoses Not on filedocumented in this encounter Additional Health Concerns Infection Onset Date Last Indicated Resolved Time CoV-Risk 12/21/2021 12/21/2021 01/01/2022 1:22 AM EDT documented as of this encounter Care Teams Fibreglass Laminator Relationship Specialty Start Date End Date Jacquelyn Chandler MD [address] [place] [address] [email or web address] PCP - General Internal Medicine 12/01/17 01/28/23 Jessy Andersen NP [address] [place] [address] PCP - General Nurse Practitioner 01/29/23 12/15/24 Jessy Andersen NP [address] [place] [address] PCP - General Nurse Practitioner 12/16/24 documented as of this encounter Additional Source Comments The information contained in this document represents components of the legal health record. It is not the complete legal health record.[facility]
--- OUTSIDE RECORDS SUMMARY | 2024-12-26 17:57 | XMS_ITS | Encounter Summary ---
Author Organization [facility] Address [address] [place] [address] Phone Care Team Providers Care Cmo & President Name Role Phone Jessy Andersen ROUTE SALES DELIVERY DRIVER Primary Care Provider Jessy Andersen ROUTE SALES DELIVERY DRIVER Primary Care Provider Encounter Details Date Type Department Care Team (Late st Contact Info) Description 09/22/2024 Transcribe Orders Virtual Department [address] [place] [address] Jessy Andersen NP [address] [place] [address] Nausea and vomiting, unspecified vomiting type (Primary [...] st Contact Info) Description 09/28/2024 Procedure Pass [address] [place] [address] 01/23/2025 2:45 PM EST Office Visit [facility] [address] [place] [phone] Unknown, Unknown, Nat Marquez PA-C [address] [place] [address] 05/10/2025 9:15 AM EDT Appointment [address] [place] [address] Jessy Andersen NP [address] [place] [address] documented as of this encounter Results * [...] clinician's provided indication for this examination in [facility]: Outside Radiology Order; Nausea/vomiting; EPIGASTRIC [...] clinician's provided indication for this examination in [facility]:Outside Radiology Order; Nausea/vomiting; EPIGASTRIC PAIN [...] No sonographically evident renal calculi. Jessy Andersen ROUTE SALES DELIVERY DRIVER IMG US ABDOMEN Final Result documented in this encounter Visit Diagnoses Diagnosis Nausea and vomiting, unspecified vomiting type- Primary Nausea and vomiting, unspecified vomiting type documented in this encounter Additional Health Concerns Assessment Noted Time PHQ-2 Depression Total Score: 0 09/02/19 10:16 AM EDT documented as of this encounter Care Teams Cmo & President Relationship Specialty Start Date End Date Jessy Andersen NP PCP - General Nurse Practitioner 01/29/23 12/15/24 Jessy Andersen NP [address] [place] [address] PCP - General Nurse Practitioner 12/16/24 documented as of this encounter Additional Source Comments The information contained in this document represents components of the legal health record. It is not the complete legal health record.[facility]
--- OUTSIDE RECORDS SUMMARY | 2024-12-26 17:57 | XMS_ITS | Encounter Summary ---
Author Organization [facility] Address [address] [place] [address] [place] [address] Phone Care Team Providers Care Wildlife Biology Internship Name Role Phone Jacquelyn Chandler MD Primary Care Provider Jessy Andersen BOX SHOOK PATCHER Primary Care Provider Jessy Andersen BOX SHOOK PATCHER Primary Care Provider Encounter Details Date Type Department Care Team (Late st Contact Info) Description 08/01/2021 Procedure Pass [facility] - [address] [place] [address] Social History Tobacco Use Types Packs/Day Years [...] Contact Info) Description 09/28/2024 Procedure Pass [address] [place] [address] 01/23/2025 2:45 PM EST Office Visit [facility] [address] [place] [address] Unknown, Unknown, Nat Marquez PA-C [address] [address] 05/10/2025 9:15 AM EDT Appointment [address] [place] [address] Jessy Andersen NP [address] [place] [id number] documented as of this encounter Visit Diagnoses Not on filedocumented in this encounter Additional Health Concerns Infection Onset Date Last Indicated Resolved Time CoV-Risk 12/21/2021 12/21/2021 01/01/2022 1:22 AM EDT Assessment Noted Time PHQ-2 Depression Total Score: 0 07/30/19 10:09 AM EDT documented as of this encounter Care Teams Wildlife Biology Internship Relationship Specialty Start Date End Date Jacquelyn Chandler MD [address] [place] [phone] PCP - General Internal Medicine 12/01/17 01/28/23 Jessy Andersen NP [address] [place] [address] PCP - General Nurse Practitioner 01/29/23 12/15/24 Jessy Andersen NP [address] [place] [address] [place] [id number] PCP - General Nurse Practitioner 12/16/24 documented as of this encounter Additional Source Comments The information contained in this document represents components of the legal health record. It is not the complete legal health record.[facility]
--- OUTSIDE RECORDS SUMMARY | 2024-12-26 17:57 | XMS_ITS | Encounter Summary ---
Author Organization [facility] Address [address] [place] [address] Phone Care Team Providers Care Community Development Director Name Role Phone Jacquelyn Chandler MD Primary Care Provider Jessy Andersen GEOGRAPHIC INFORMATION SYSTEMS MANAGER Primary Care Provider Jessy Andersen GEOGRAPHIC INFORMATION SYSTEMS MANAGER Primary Care Provider Encounter Details Date Type Department Care Team (Late st Contact Info) Description 08/28/2022 Procedure Pass [facility] [place] - [address] [address] Social History Tobacco Use Types Packs/Day Years [...] 9:58 PM EDT Zarina Noriega RN * [place] Suicide Severity Rating Scale (Screener/Recent Self-Report) Question Answer Date of Assessment Author 1. Wish to be (Past 1 Month) No 023 9:58 PM Zarina Tucker RN 2. Non-Specific Active Suici cricket Thoughts (Past 1 Month) No 08/28/2022 9:58 PM JESSICAT Letitia Noriega RN 6. Suicidal Behavior (Lifetime) No 9:58 PM Zarina Tucker RN documented as of this encounter Plan of Treatment Upcoming Encounters Date Type Department Care Team (Late st Contact Info) Description 09/28/2024 Procedure Pass [facility] - [address] [place] [address] 01/23/2025 2:45 PM EST Office Visit [facility] [address] [place] [phone] Unknown, Unknown, Nat Marquez PA-C [address] [address] 05/10/2025 9:15 AM EDT Appointment [address] [place] [address] Jessy Andersen NP [address] [facility] [place] [address] documented as of this encounter Visit Diagnoses Not on filedocumented in this encounter Additional Health Concerns Assessment Noted Time PHQ-2 Depression Total Score: 0 07/30/19 10:09 AM EDT documented as of this encounter Care Teams Community Development Director Relationship Specialty Start Date End Date Jacquelyn Chandler MD [address] [place] [phone] PCP - General Internal Medicine 12/01/17 01/28/23 Jessy Andersen NP [address] [place] [address] PCP - General Nurse Practitioner 01/29/23 12/15/24 Jessy Andersen NP [address] [place] [address] PCP - General Nurse Practitioner 12/16/24 documented as of this encounter Additional Source Comments The information contained in this document represents components of the legal health record. It is not the complete legal health record.[facility]
--- OUTSIDE RECORDS SUMMARY | 2024-12-26 17:57 | XMS_ITS | Encounter Summary ---
Author Organization [facility] Address [facility] [address] [place] [address] Phone Care Team Providers Care Barrel Drum Cutter Name Role Phone Jacquelyn Chandler MD Primary Care Provider Jessy Andersen ELECTRICIAN SHIP Primary Care Provider Jessy Andersen ELECTRICIAN SHIP Primary Care Provider Encounter Details Date Type Department Care Team (Late st Contact Info) Description 09/01/2022 Procedure Pass [facility], [address] [place] [address] Social History Tobacco Use Types Packs/Day Years [...] st Contact Info) Description 09/28/2024 Procedure Pass [address] [place] [address] 01/23/2025 2:45 PM EST Office Visit [facility] [address] [place] [phone] Unknown, Unknown, Nat Marquez PA-C [address] [place] [address] 05/10/2025 9:15 AM EDT Appointment [address] [place] [address] Jessy Andersen, AMBIKA [address] [place] [address] documented as of this encounter Visit Diagnoses Not on filedocumented in this encounter Additional Health Concerns Assessment Noted Time PHQ-2 Depression Total Score: 0 09/02/19 23 10:16 AM EDT documented as of this encounter Care Teams Barrel Drum Cutter Relationship Specialty Start Date End Date Jacquelyn Chandler MD [address] [place] [phone] [email or web address] PCP - General Internal Medicine 12/01/17 01/28/23 Jessy Andersen NP [address] [place] [address] PCP - General Nurse Practitioner 01/29/23 12/15/24 Jessy Andersen NP [address] [place] [address] PCP - General Nurse Practitioner 12/16/24 documented as of this encounter Additional Source Comments The information contained in this document represents components of the legal health record. It is not the complete legal health record.[facility]
--- OUTSIDE RECORDS SUMMARY | 2024-12-26 17:57 | XMS_ITS | Encounter Summary ---
Author Organization [facility] Address [address] [place] [address] Phone Care Team Providers Care Lift Builder Whole Name Role Phone Jacquelyn Chandler MD Primary Care Provider Jessy Andersen TRAINING ASSOCIATE Primary Care Provider Jessy Andersen TRAINING ASSOCIATE Primary Care Provider Encounter Details Date Type Department Care Team (Latest Contact Info) Description 11/15/2020 Transcribe Orders Virtual Department [address] [place] [address] Seth Jeter MD [address] [place] [phone] [email or web address] Encounter for laboratory testing for COVID-19 virus [...] st Contact Info) Description 09/28/2024 Procedure Pass [address] [place] [address] 01/23/2025 2:45 PM EST Office Visit [facility] [address] [place] [address] Unknown, Unknown, Nat Marquez PA-C [address] [address] 05/10/2025 9:15 AM EDT Appointment [address] [place] [address] Jessy Andersen NP [address] [place] [address] documented as of this encounter Results * COVID-19 PCR Order (11/19/2020 10:06 AM EDT) COVID-19 Comment [id number] [facility] COVID Testing Status Sent to [facility] Other 11/19/2020 10:0 6 AM EDT 11/19/2020 5:03 PM EDT us Seth Jeter MD BODY FLUIDS AND STOOLS ORDER GABBI Final Result [facility] [address] [place] [address] documented in this encounter Visit Diagnoses Diagnosis Encounter for laboratory testing for COVID-19 virus- Primary documented in this encounter Additional Health Concerns Infection Onset Date Last Indicated Resolved Time CoV-Risk 12/21/2021 12/21/2021 01/01/2022 1:22 AM EDT documented as of this encounter Care Teams Lift Builder Whole Relationship Specialty Start Date End Date Jacquelyn Chandler MD [address] [place] [address] [email or web address] PCP - General Internal Medicine 12/01/17 01/28/23 Jessy Andersen NP [address] [place] [address] PCP - General Nurse Practitioner 01/29/23 12/15/24 Jessy Andersen NP [address] [place] [address] PCP - General Nurse Practitioner 12/16/24 documented as of this encounter Additional Source Comments The information contained in this document represents components of the legal health record. It is not the complete legal health record.[facility]
--- OUTSIDE RECORDS SUMMARY | 2024-12-26 17:57 | XMS_ITS | Clinical Summary ---
Author Organization [facility] Address [address] [place] [address] Phone Care Team Providers Care Ship Cleaner Name Role Phone JaleesaDinh acosta Tyra APPLE [...] 09/12/19 22 Active montelukast (SINGULAIR) 10 mg tabletIndications :Mild intermittent asthma without complication Take 1 tablet (10 mg total) by mouth daily. 90 tablet 3 12/10/19 22 Active aspirin 81 MG EC tablet TAKE 1 TABLET BY MOUTH DAILY. CALL OFFICE FOR FOLLOWUP [phone] 12/10/19 22 Active levalbuterol (XOPENEX) 0.31 mg/3 [...] 04/08/19 23 Active ciclopirox (PENLAC) 8 % solutionIndicatio ns:Onychomycosis Apply topically daily. Apply over nail and surrounding skin. Apply daily over previous coat. After seven (7) days, may remove with nail mongolian remover and continue cycle. 6.6 mL 3 05/30/19 23 Active metoprolol succinate (TOPROL-XL) 25 MG 24 hr tablet Take 1 tablet (25 mg total) by mouth daily. 90 tablet 3 08/06/19 23 Active fluticasone propionate (FLONASE) 50 mcg/actuation nasal sprayIndications: Seasonal allergies 2 sprays by Nasal route daily. [...] 24 Active diclofenac sodium (VOLTAREN) 1 % GelIndications:Pr imary osteoarthritis of both knees Apply 4 grams to each knee up to 4 times daily as needed 100 g 1 05/29/19 24 Active DULoxetine (CYMBALTA) 30 MG capsuleIndication s:Primary osteoarthritis of both knees,Chronic bilateral low back pain without sciatica TAKE 1 CAPSULE (30 MG TOTAL) BY MOUTH EVERY EVENING. WITH FOOD 90 capsule 1 06/22/19 24 Active albuterol 90 mcg/actuation inhaler Inhale 2 puffs into the lungs every 4 (four) hours as needed for wheezing or shortness of breath/dyspnea. 18 g 12/17/19 25 Active albuterol 90 mcg/actuation inhalerIndication s:REHMAN (dyspnea on exertion) inhale 2 puffs by mouth every 6 hours as needed 8 g 4 11/03/19 24 025 Discontinu ed(Duplica te order) predniSONE (DELTASONE) 10 MG tablet Take 4 tablets (40 mg total) by mouth daily for 5 days. 20 tablet 12/17/19 benzonatate (TESSALON) 100 MG capsule Take 1 capsule (100 mg total) by mouth 2 (two) times a day as needed for cough. 14 capsule 12/17/19 Active Problems Problem Noted Date Diagnosed Date [...] virus 08/01 Atherosclerosis of coronary artery of [place] 08/01/2021 Assessment & Plan (02/13/2022 7:02 AM EST): F/u Cardiology as discussed Assessment & Plan (08/01/2021 1:42 PM EDT): Follow up with Cardiology as discussed Requesting 2nd opinion from [place] [facility] Hyperlipidemia 08/01/2021 Assessment & Plan (02/13/2022 7:03 [...] PM EDT): Per your request, referral to [facility] given your persistant symptoms Tick bite [...] Plan (10/21/2019 3:04 PM EDT): Unlikely of PROJECTION CAMERA OPERATOR origin Assessment & Plan (09/27/2018 3:51 PM EDT): Reports no pain today. GI w/u has been unrevealing. UA was negative. CT shows only a 13mm right ovarian cyst without worrisome feature Resolved Problems Problem Noted Date Diagnosed Date Resolved Date Mild intermittent asthma without complication 06/04/21 2102/14/2022 Assessment & Plan (08/01/2021 1:43 PM EDT): [...] Encounters Date Type Department Care Team Description 12/16/2024 10:13 AM EDT - 12/16/2024 11:59 PM EDT Hospital Encounter [facility], X-Ray - [address] [place] [address] Franco Yuen PA-C Discharge Disposition: Home or Self Care 12/16/2024 9:10 AM EDT Office Visit [facility] at [address] [place] [address] Franco Yuen PA-C Acute upper respiratory infection (Primary Dx); Shortness of breath 11/28/2024 11:30 AM EDT Office Visit [facility] [address] [place] [address] Brooke Pressley MD Sharkey, Linda Ann, PT Other abnormalities of gait and mobility (Primary Dx) 11/21/2024 11:30 AM EDT Office Visit [facility] [address] [place] [address] Brooke Pressley MD Sharkey, Linda Ann, PT Other abnormalities of gait and mobility (Primary Dx) 11/14/2024 11:30 AM EDT Office Visit [address] [address] Brooke Pressley MD Sharkey, Linda Ann, PT Other abnormalities of gait and mobility (Primary Dx) 11/07/2024 11:30 AM EDT Office Visit [facility] [address] [place] [address] Brooke Pressley MD Sharkey, Linda Ann, PT Other abnormalities of gait and mobility (Primary Dx) 10/17/2024 9:15 AM EDT Office Visit [address] [address] Brooke Pressley MD Sharkey, Linda Ann, PT Other abnormalities of gait and mobility (Primary Dx) 10/06/2024 10:30 AM EDT Office Visit [facility] [address] [place] [address] Brooke Pressley MD Sharkey, Linda Ann, PT Other abnormalities of gait and mobility (Primary Dx) 10/06/2024 Plan of Care Documentation [facility] [address] [place] [address] 10/04/2024 10:12 AM EDT - 10/04/2024 11:59 PM EDT Hospital Encounter [facility], Bone Density - [facility] [address] [place] [address] Dinh Keane NP Discharge Disposition: Home or Self Care 10/04/2024 9:23 AM EDT - 10/04/2024 10:11 AM EDT Hospital Encounter [facility] [address] [place] [address] Dinh Keane NP Discharge Disposition: Home or Self Care 10/03/2024 9:42 AM EDT - 10/03/2024 11:59 PM EDT Hospital Encounter [facility] - [address] [place] [address] Dinh Keane NP Discharge Disposition: Home or Self Care 09/28/2024 Transcribe Orders Virtual Department [address] [place] [address] Dinh Keane NP Breast screening (Primary Dx); Nausea and vomiting, unspecified vomiting type from Last 3 Months Immunizations Immunization [...] Sign Reading Time Taken Comments Blood Pressure 167/83 12/16/2024 9:47 AM EDT Pulse 88 12/16/2024 9:47 AM EDT Temperature 36.8 C (98.2 F) 12/16/2024 9:47 AM EDT Respiratory Rate 16 12/16/2024 9:47 AM EDT Oxygen Saturation 97% 12/16/2024 9:47 AM EDT Inhaled Oxygen Concentration - - Weight 77.1 kg (170 lb) 12/16/2024 9:47 AM EDT Height 162.6 cm (5' 4 ) 12/16/2024 9:47 AM EDT Body Mass Index 29.18 12/16/2024 9:47 AM EDT Plan of Treatment Upcoming Encounters Date Type Department Care Team ([facility] st Contact Info) Description 09/28/2024 Procedure Pass [address] [place] [address] 01/23/2025 2:45 PM EST Office Visit [facility] [address] [place] [address] Unknown, Unknown, Nat Marquez PA-C [address] [address] 05/10/2025 9:15 AM EDT Appointment [address] [place] [address] Dinh Keane, AMBIKA [address] [place] [address] Health Maintenance Due Date Last Done Comments PNEUMOCOCCAL VACCINES (50+ years) (1 of 2 - PCV) 10/20/1975 COLOGUARD 2001 FIT TEST 2001 FOBT 2001 SIGMOIDOSCOPY 2001 VIRTUAL COLONOSCOPY 2001 RSV VACCINE (1 - Risk 50-74 years 1-dose series) 2006 ZOSTER VACCINES (1 of 2) 2006 DEPRESSION SCREENING 09/02/2023 09/01/2022 INFLUENZA VACCINE (#1) [...] Procedure Name Priority Date/Time Associated Diagnosis Comments XR CHEST PA AND LATERAL 2 VIEWS Urgent/patient waiting 12/16/2024 10:55 AM EDT Shortness of breath POCT RAPID STREP A Routine 12/16/2024 9: 15 AM EDT POCT COVID-19 RT-PCR/INFLUENZA A & B/RSV CEPHEID Routine 12/16/2024 9:13 AM EDT BD DXA AXIAL (SPINE) WITH HIP Routine [...] Relevant to Health Maintenance Results * XR CHEST PA AND LATERAL 2 VIEWS (12/16/2024 10:55 AM EDT) Anatomical Region Laterality Modality Chest Computed Radiogr aphy 12/16/2024 11:1 9 AM EDT Impressions 12/16/2024 11:37 AM EDT No acute abnormality. ATTESTATION: Sameera Sewell as teaching physician, have reviewed the images for this case and if necessary edited the report originally created by Kalee Lora. Narrative 12/16/2024 11:37 AM EDT XR CHEST PA AND LATERAL 2 VIEWS Referring clinician's provided indication for this examination in [facility]: Cough; Pain; Dyspnea (Shortness of Breath) COMPARISON: XR CHEST PA AND LATERAL 2 VIEWS FINDINGS: Devices/Tubes/Lines: None. Lungs: No focal consolidation or pulmonary edema. Unchanged biapical scarring. Pleura: No pleural effusion or pneumothorax. Heart/Mediastinum: Normal heart and mediastinum. Bones/Soft Tissues: Degenerative changes in the spine and shoulders. Procedure Note Sameera Khan MD - 12/16/2024 XR CHEST PA AND LATERAL 2 VIEWS Referring clinician's provided indication for this examination in [facility]:Cough; Pain; Dyspnea (Shortness of Breath) COMPARISON: XR CHEST PA AND LATERAL 2 VIEWS FINDINGS: Devices/Tubes/Lines: None. Lungs: No focal consolidation or pulmonary edema. Unchanged biapicalscarring. Pleura: No pleural effusion or pneumothorax. Heart/Mediastinum: Normal heart and mediastinum. Bones/Soft Tissues: Degenerative changes in the spine and shoulders. IMPRESSION: No acute abnormality. ATTESTATION: Sameera Sewell as teaching physician, have reviewed theimages for this case and if necessary edited the report originally createdby Kalee Lora. Franco Yuen PA-C IMG XR LIS ST Final Result * POCT Rapid Strep A (12/16/2024 9:15 AM EDT) Strep A, PCR Not Detected Not Detected [facility] 12/16/2024 9:15 AM EDT 12/16/2024 9:39 AM EDT Franco GONZALEZ-C POINT OF C ARE TEST ORDERABLES Final Result Performing Organization Address [facility]/ZIP Co de Phone Number [facility] [place] [place] [address], [facility] [phone] * POCT COVID-19 RT-PCR/Influenza A & B/RSV (Cepheid) (12/16/2024 9:13 AM EDT) [facility] RSV PCR Negative Negative [facility] SARS-CoV-2 (COVID-19) Negative Negative [facility] POC Influenza A PCR Negative Negative [facility] POC Influenza B PCR Negative Negative [facility] 12/16/2024 9:13 AM EDT 12/16/2024 9:51 AM EDT Franco SHULTZC POINT OF C ARE TEST ORDERABLES Final Result Performing Organization Address [facility] de Phone Number [facility] [place] [address], [facility] [phone] * BD DXA AXIAL (SPINE) WITH HIP (10/04/2024 10:41 AM EDT) Anatomical Region Laterality Modality Bone Density Bone Density 10/04/2024 10:3 0 AM EDT Impressions 10/05/2024 12:30 PM EDT Interpretation: Normal bone mineral density. Narrative 10/05/2024 12:30 PM EDT Referred By: DINH KEANE Indications: Osteoporosis Scanner: Clarity A with serial# of [id number] located at [facility] Bone Density Scan (DXA) 10/04/24 [...] -2.5), or Osteoporosis (T-score <= -2.5). At [facility], T-scores are compared to peak bone density [...] Referred By: DINH KEANE Indications: Osteoporosis Scanner: Clarity A with serial# of [id number] located at [facility] Bone Density Scan (DXA) 10/04/24 Details [...] -2.5), or Osteoporosis (T-score <= -2.5). At [facility], T-scores are compared to peak bone density [...] EDT) H.PYLORI C UREA BRTH Negative Negative [facility] Comment: (NOTE) Result indicates the absence of current Helicobacter pylori infection. Blood 10/04/2024 10:3 2 AM EDT 10/04/2024 10:35 AM EDT [facility] Tyra Keane AIR PURIFIER SERVICER LAB BLOOD ORDERABLES F inal Result [facility] [address] [place] [address] * US ABDOMEN LIMITED RIGHT UPPER QUADRANT [...] clinician's provided indication for this examination in [facility]: Outside Radiology Order; Nausea/vomiting; EPIGASTRIC PAIN TECHNIQUE: [...] clinician's provided indication for this examination in [facility]:Outside Radiology Order; Nausea/vomiting; EPIGASTRIC PAIN TECHNIQUE: US [...] hydronephrosis. No sonographically evident renal calculi. us [facility] AIR PURIFIER SERVICER IMG US ABDOMEN Final Result * BI [...] be notified of the results and recommendations. Dinh Keane AIR PURIFIER SERVICER IMG MG EXAMS Final Result * Hepatitis C antibody, qualitative (11/27/2021 11:43 AM EDT) HCV NON-REACTIV E NON-REACTI VE [facility] Blood 11/27/2021 11:4 3 AM EDT 11/27/2021 11:47 AM EDT Jacquelyn Chandler MD LAB BLOOD ORDERABLES Final R esult [facility] [address] [place], [place] [id number] * COLONOSCOPY FOR RESULT ENTRY ONLY (08/12/2018) Colonoscopy 10 yr recall Historical Provider HEALTH MAINTENANCE Final Result from Last 3 Months or Most Recently Relevant to Health Maintenance Insurance [facility] MEDICARE REPLACEMENT ([place]) [address] MEDICARE REPLACEMENT [facility] MEDICARE REPLACEMENT [facility] MEDICARE REPLACEMENT Care Teams Ship Cleaner Relationship Specialty Start Date End Date Dinh Keane NP [address] [place] [address] PCP - General Nurse Practitioner 12/16/24 Additional Source Comments The information contained in this document represents components of the legal health record. It is not the complete legal health record.[facility]
--- OUTSIDE RECORDS SUMMARY | 2024-12-26 17:57 | XMS_ITS | Encounter Summary ---
Author Organization [facility] Address [address] [place] [phone] Phone Care Team Providers Care Instrument Technician Helper Name Role Phone Jacquelyn Chandler MD Primary Care Provider Jessy Andersen PROFESSOR OF COMMUNICATION ARTS Primary Care Provider [facility] PROFESSOR OF COMMUNICATION ARTS Primary Care Provider Reason for Referral * Outpatient Procedure - Closed Specialty Diagnoses / Procedures Referred By Gabriele canales Referred To Contact Radiology Diagnoses TIA (transient ischemic attack) Procedures Adult Echo TTE Taqueria Aj MD [address] [place] [address], [address] [place] [address] Phone: tel: fax: [email or web address] Referral ID Status Reason Start Date Expiration Date Visits Re quested Visits Authorized [id number] Closed 09/22/2022 1 1 Encounter Details Date Type Department Care Team (Latest Contact Info) Description 09/22/2022 Transcribe Orders [facility] Department [address] [place], [place] [phone] Taqueria Aj MD [address] [place] [address], [address] [place] [phone] [email or web address] TIA (transient ischemic attack) (Primary Dx) [...] Procedure Pass [facility] - [address] [place] [address] 01/23/2025 2:45 PM EST Office Visit [facility] [address] [place] [address] Unknown, Unknown, Nat Marquez PA-C [address] [facility] [address] [place] [address] [email or web address] 05/10/2025 9:15 AM EDT Appointment [address] [place] [address] Jessy Andersen, AMBIKA [address] [place] [address] documented as of this encounter Results * [...] documented as of this encounter Care Teams Instrument Technician Helper Relationship Specialty Start Date End Date Jacquelyn Chandler MD [address] [place] [phone] [email or web address] PCP - General Internal Medicine 12/01/17 01/28/23 Jessy Andersen NP [address] [place] [address] PCP - General Nurse Practitioner 01/29/23 12/15/24 Jessy Andersen NP [address] [place] [address] PCP - General Nurse Practitioner 12/16/24 documented as of this encounter Additional Source Comments The information contained in this document represents components of the legal health record. It is not the complete legal health record.[facility]
--- OUTSIDE RECORDS SUMMARY | 2024-12-26 17:57 | XMS_ITS | Encounter Summary ---
Author Organization [facility] Address [address] [place] [address] [place] [address] Phone Care Team Providers Care Adjusto Writer Operator Name Role Phone Jacquelyn Chandler MD Primary Care Provider [phone] Jessy Andersen ELECTRONICS DETAIL DRAFTSPERSON Primary Care Provider Jessy Andersen ELECTRONICS DETAIL DRAFTSPERSON Primary Care Provider Encounter Details Date Type Department Care Team (Latest Contact Info) Description 06/18/2020 Transcribe Orders [address] [place] [address] Jacquelyn Chandler MD [address] [place] [phone] [email or web address] Screening examination for pulmonary tuberculosis (Primary Dx); [...] st Contact Info) Description 09/28/2024 Procedure Pass [address] [place] [address] 01/23/2025 2:45 PM EST Office Visit [facility] [address] [place] [address] Unknown, Unknown, Nat Marquez PA-C [address] [address] 05/10/2025 9:15 AM EDT Appointment [address] [place] [address] Jessy Andersen, AMBIKA [address] [place] [address] documented as of this encounter Results * T spot TB test (06/18/2020 8:42 AM EDT) [facility] T-SPOT.TB Negative [facility] Comment: (NOTE) Normal Value: Negative [...] Spot Count Corrected For Neg Control 0 [facility] Panel B Spot Count Corrected For Neg Control 0 [facility] Negative Control Passed [facility] Positive Control Passed [facility] Blood 06/18/2020 8:42 AM EDT 06/18/2020 8:47 AM EDT Jacquelyn Chandler MD LAB BLOOD ORDERABLES Final R esult [facility] [address] [place] [address], [facility] [phone] * (ABNORMAL) 25-OH vitamin D (06/18/2020 8:42 AM EDT) 25 OH VIT D (TOTAL) 26(L) 30 - 60 ng/mL [facility] Blood 06/18/2020 8:42 AM EDT 06/18/2020 8:47 AM EDT Jacquelyn Chandler MD LAB BLOOD ORDERABLES Final R esult [address] [address] * Lipid panel (06/18/2020 8:42 AM EDT) HDL 50 mg/dL [facility] Comment: Interpretation <40 mg/dL: Low HDL cholesterol (major risk factor for CHD) Greater than or equal to 60 mg/dL: High HDL cholesterol ( negative risk factor for CHD) HDL - cholesterol is affected by a number of factors, e.g. smoking, excerise, hormones, sex and age. CHOLESTEROL 202 0 - 240 mg/dL [facility] TRIGLYCERIDES 118 30 - 160 mg/dL [facility] LDL 128 50 - 129 mg/dL [facility] Comment: LDL levels in terms of risk for coronary heart disease: <100 mg/dL: Optimal 100-129 mg/dL: Near or above optimal 130-159 mg/dL: Borderline high 160-189 mg/dL: High >190 mg/dL: Very High CARDIAC RISK RATIO 4.0 3.3 - 4.4 C [facility] Blood 06/18/2020 8:42 AM EDT 06/18/2020 8:47 AM EDT us Jacquelyn Chandler MD LAB BLOOD ORDERABLES Final R esult Performing Organization Address City/[facility]/ZIP Co de Phone Number [address] [address] * CPK (creatine kinase) (06/18/2020 8:42 AM EDT) CREATINE KINASE 48 21 - 215 U/L [facility] Blood 06/18/2020 8:42 AM EDT 06/18/2020 8:47 AM EDT us Jacquelyn Chandler MD LAB BLOOD ORDERABLES Final R esult Performing Organization Address [facility]/[place] Co de Phone Number [address] [address] * Aspartate aminotransferase (AST) (06/18/2020 8:42 AM EDT) AST 26 0 - 37 U/L [facility] Blood 06/18/2020 8:42 AM EDT 06/18/2020 8:47 AM EDT us Jacquelyn Chandler MD LAB BLOOD ORDERABLES Final R esult Performing Organization Address City/[facility]/ZIP Co de Phone Number [address] [address] * Alanine aminotransferase (ALT) (06/18/2020 8:42 AM EDT) ALT 25 0 - 40 U/L [facility] Blood 06/18/2020 8:42 AM EDT 06/18/2020 8:47 AM EDT us Jacquelyn Chandler MD LAB BLOOD ORDERABLES Final R esult Performing Organization Address City/[facility]/ZIP Co de Phone Number [address] [address] documented in this encounter Visit Diagnoses Diagnosis Screening examination for pulmonary tuberculosis- Primary Hyperlipidemia, unspecified hyperlipidemia type Vitamin D deficiency, unspecified documented in this encounter Additional Health Concerns Infection Onset Date Last Indicated Resolved Time CoV-Risk 12/21/2021 12/21/2021 01/01/2022 1:22 AM EDT documented as of this encounter Care Teams Adjusto Writer Operator Relationship Specialty Start Date End Date Jacquelyn Chandler MD [address] [place] [phone] [email or web address] PCP - General Internal Medicine 12/01/17 01/28/23 Jessy Andersen NP [address] [place] [address] PCP - General Nurse Practitioner 01/29/23 12/15/24 Jessy Andersen NP [address] [place] [address] PCP - General Nurse Practitioner 12/16/24 documented as of this encounter Additional Source Comments The information contained in this document represents components of the legal health record. It is not the complete legal health record.[facility]
--- OUTSIDE RECORDS SUMMARY | 2024-12-26 17:57 | XMS_ITS | Encounter Summary ---
Author Organization [facility] Address [address] [place] [address] [place] [address] Phone Care Team Providers Care Technical Support 1 Software Engineer Name Role Phone Jacquelyn Chandler MD Primary Care Provider Jsesy Andersen ASSISTED LIVING ASSOCIATE Primary Care Provider Jessy Andersen ASSISTED LIVING ASSOCIATE Primary Care Provider Encounter Details Date Type Department Care Team (Latest Contact Info) Description 11/06/2020 Transcribe Orders [address] [place] [address] Nat Tam PA [address] [place] [address] Gastroesophageal reflux disease with esophagitis, unspecified whether [...] Contact Info) Description 09/28/2024 Procedure Pass [address] [place] [address] 01/23/2025 2:45 PM EST Office Visit [facility] 10 [place] [address] Unknown, Unknown, Nat Marquez PA-C [address] [address] 05/10/2025 9:15 AM EDT Appointment [address] [place] [address] Jessy Andersen, ASSISTED LIVING ASSOCIATE [address] [place] [address] documented as of this encounter Results * CBC and differential (11/06/2020 10:12 AM EDT) WBC 5.70 4.00 - 11.00 K/uL [facility] RBC 4.52 3.72 - 5.30 M/uL [facility] HGB 12.7 11.4 - 15.9 g/dL [facility] HCT 38.2 34.2 - 46.8 % [facility] PLT 268 140 - 430 K/uL [facility] MCV 84.5 78.0 - 97.0 fL [facility] MCH 28.1 25.0 - 33.0 pg [facility] MCHC 33.2 32.0 - 36.0 g/dL [facility] RDW 13.2 11.0 - 16.0 % [facility] MPV 11.6 8.4 - 12.8 fl [facility] NRBC 0.00 0 /100 WBCs [facility] ABSOLUTE NRBC 0.00 0 K/uL [facility] DIFF METHOD Auto [facility] NEUTS 53.7 43.0 - 75.0 % [facility] LYMPHS 36.7 18.2 - 47.4 % [facility] MONOS 6.7 4.00 - 11.00 % [facility] EOS 1.6 0.0 - 8.0 % [facility] BASOS 0.9 0.0 - 2.0 % [facility] Granulocytes, immature (%) 0.4 0.0 - 0.9 % [facility] ABSOLUTE NEUTS 3.07 1.80 - 7.70 K/uL [facility] ABSOLUTE LYMPHS 2.09 1.00 - 3.10 K/uL [facility] ABSOLUTE MONOS 0.38 0.20 - 0.80 K/uL [facility] ABSOLUTE EOS 0.09 0.00 - 0.80 K/uL [facility] ABSOLUTE BASOS 0.05 0.00 - 0.09 K/uL [facility] Granulocytes, immature 0.02 0.00 - 0.05 K/uL [facility] Blood 11/06/2020 10:1 2 AM EDT 11/06/2020 10:15 AM EDT us Nat GONZALEZ LAB BLOOD ORDERABLES Final Result Performing Organization Address City/State/[facility] Co de Phone Number [address] [address] documented in this encounter Visit Diagnoses Diagnosis Gastroesophageal reflux disease with esophagitis, unspecified whether hemorrhage- Primary documented in this encounter Additional Health Concerns Infection Onset Date Last Indicated Resolved Time CoV-Risk 12/21/2021 12/21/2021 01/01/2022 1:22 AM EDT documented as of this encounter Care Teams Technical Support 1 Software Engineer Relationship Specialty Start Date End Date Jacquelyn Chandler MD [address] [place] [address] 1 [place] [address] [email or web address] PCP - General Internal Medicine 12/01/17 01/28/23 Jessy Andersen NP [address] [place] [address] PCP - General Nurse Practitioner 01/29/23 12/15/24 Jessy Andersen NP [address] [place] [address] PCP - General Nurse Practitioner 12/16/24 documented as of this encounter Additional Source Comments The information contained in this document represents components of the legal health record. It is not the complete legal health record.[facility]
--- OUTSIDE RECORDS SUMMARY | 2024-12-26 17:57 | XMS_ITS | Encounter Summary ---
Author Organization [employer] Address [address] [place] [address] 7[address] [place] [address] Care Team Providers Care Sales And Marketing Coordinator Name Role Phone [facility] Primary Care Provider [phone] Encounter Details Date Type Department Care Team (Late st Contact Info) Description 02/06/2023 Orders Only [facility] Information Management [address] [place] [address] [facility] Jessy [facility] 70 [place] [address] Social History Tobacco Use Types Packs/Day Years [...] 03/24/2025 11:40 AM EST Office Visit Gerhard [facility] 70 [place] [address] [facility] Jessy [facility] 70 [place] [address] documented as of this encounter Procedures Procedure Name Priority Date/Time Associated Diagnosis Comments MAMMOGRAPHY Routine 02/03/2023 documented in this encounter Results * Mammography (02/03/2023) Anatomical Region Laterality Modality Other Jessy Andersen [facility] Result - Final documented in this encounter Visit Diagnoses Not on filedocumented in this encounter Care Teams Sales And Marketing Coordinator Relationship Specialty Start Date End Date Jessy Andersen FNP 70 [facility] [place] [address] PCP - General Family Medicine 10/01/22 documented as of this encounter
--- OUTSIDE RECORDS SUMMARY | 2024-12-26 17:57 | XMS_ITS | Encounter Summary ---
Author Organization [facility] Address [address] [place] [address] [place] [address] Phone Care Team Providers Care Trash Collector Supervisor Name Role Phone Jacquelyn Chandler MD Primary Care Provider [phone] Jessy Andersen ACCESS SERVICES LIBRARIAN Primary Care Provider Jessy Andersen ACCESS SERVICES LIBRARIAN Primary Care Provider Encounter Details Date Type Department Care Team (Late st Contact Info) Description 11/25/2019 Procedure Pass OR Admitting Dept - [facility] Department [address] [place] [address] Social History Tobacco Use Types Packs/Day Years [...] Contact Info) Description 09/28/2024 Procedure Pass [address] [place] [address] 01/23/2025 2:45 PM EST Office Visit [facility] 10 [place] [address] Unknown, Unknown, Nat Marquez PA-C [address] [address] [email or web address] 05/10/2025 9:15 AM EDT Appointment [address] [place] [address] Jessy Andersen NP 73 [place] [address] documented as of this encounter Visit Diagnoses Not on filedocumented in this encounter Additional Health Concerns Infection Onset Date Last Indicated Resolved Time CoV-Risk 12/21/2021 12/21/2021 01/01/2022 1:22 AM EDT documented as of this encounter Care Teams Trash Collector Supervisor Relationship Specialty Start Date End Date Jacquelyn Chandler MD [address] [place] [address] [email or web address] PCP - General Internal Medicine 12/01/17 01/28/23 Jessy Andersen NP [address] [place] [address] PCP - General Nurse Practitioner 01/29/23 12/15/24 Jessy Andersen NP [address] [place] [address] [place] [address] PCP - General Nurse Practitioner 12/16/24 documented as of this encounter Additional Source Comments The information contained in this document represents components of the legal health record. It is not the complete legal health record.[facility]
--- OUTSIDE RECORDS SUMMARY | 2024-12-26 17:57 | XMS_ITS | Encounter Summary ---
Author Organization [employer] Address [address] [place] [address] 7[address] [place] [address] Care Team Providers Care Tap Grinder Name Role Phone [facility] Primary Care Provider [phone] Encounter Details Date Type Department Care Team (Late st Contact Info) Description 08/12/2023 Orders Only Gerhard [facility] 70 [place] [address] [place], [place] [facility] 70 [place] [address] Rheumatoid arthritis with positive rheumatoid factor, involving unspecified site ([facility]) Social History Tobacco Use Types Packs/Day Years [...] 03/24/2025 11:40 AM EST Office Visit Gerhard [facility] 70 [place] [address] [place], [place] [facility] 70 [place] [address] documented as of this encounter Procedures Procedure Name Priority Date/Time Associated Diagnosis Comments AMB REFERRAL TO RHEUMATOLOGY Routine 05/29/2023 Rheumatoid arthritis with positive rheumatoid factor, involving unspecified site ([facility]) documented in this encounter Results * Referral to Rheumatology (05/29/2023) [facility] OUTPATIENT REFERRAL ORDER GABBI Final Result documented in this encounter Visit Diagnoses Diagnosis Rheumatoid arthritis with positive rheumatoid factor, involving unspecified site (CMS/HCC) ([facility]) documented in this encounter Care Teams Tap Grinder Relationship Specialty Start Date End Date [facility] 70 [place] [address] PCP - General Family Medicine 10/01/22 documented as of this encounter
--- OUTSIDE RECORDS SUMMARY | 2024-12-26 17:57 | XMS_ITS | Encounter Summary ---
Author Organization [facility] Address [address] [place] [address] [place] [address] Phone Care Team Providers Care High School Combination Teacher Name Role Phone Jacquelyn Chandler MD Primary [facility] INVASIVE C[facility]IOLOG[facility] Primary Care Provider Jessy Andersen INVASIVE CARDIOLOGIST Primary Care Provider Encounter Details Date Type Department Care Team (Latest Contact Info) Description 10/17/2019 Transcribe Orders [address] [place] [address] Seth Jeter MD [address] [place] [address] [email or web address] Abdominal pain, RLQ (Primary Dx) Social History [...] Contact Info) Description 09/28/2024 Procedure Pass [address] [place] [address] 01/23/2025 2:45 PM EST Office Visit [facility] 10 [place] [address] Unknown, Unknown, Nat Marquez PA-C 10 [facility] 2 [place] [address] 05/10/2025 9:15 AM EDT Appointment [address] [place] [address] Jessy Andersen, AMBIKA [address] [place] [address] documented as of this encounter Results * Creatinine/eGFR (10/17/2019 3:24 PM EDT) CREATININE 1.00 0.5 - 1.5 mg/dL [facility] EGFR 60 >59 mL/min/1.7 3m2 [facility] Comment:Estimated glomerular filtration rate calculated using the CKD-EPI equation. Blood 10/17/2019 3:24 PM EDT 10/17/2019 3:26 PM EDT us Seth Jeter MD LAB BLOOD ORDERABLES Final R esult [facility] [address] [place] [address] * BUN (10/17/2019 3:24 PM EDT) BUN 18 6 - 19 mg/dL [facility] Blood 10/17/2019 3:24 PM EDT 10/17/2019 3:26 PM EDT us Seth Jeter MD LAB BLOOD ORDERABLES Final R esult [address] [address] documented in this encounter Visit Diagnoses Diagnosis Abdominal pain, RLQ- Primary documented in this encounter Additional Health Concerns Infection Onset Date Last Indicated Resolved Time CoV-Risk 12/21/2021 12/21/2021 01/01/2022 1:22 AM EDT documented as of this encounter Care Teams [employer] School Combination Teacher Relationship Specialty Start Date End Date Jacquelyn Chandler MD [address] [place] [address] [email or web address] PCP - General Internal Medicine 12/01/17 01/28/23 Jessy Andersen NP [address] [place] [address] PCP - General Nurse Practitioner 01/29/23 12/15/24 Jessy Andersen NP [address] [place] [address] PCP - General Nurse Practitioner 12/16/24 documented as of this encounter Additional Source Comments The information contained in this document represents components of the legal health record. It is not the complete legal health record.[facility]
--- OUTSIDE RECORDS SUMMARY | 2024-12-26 17:58 | XMS_ITS | Encounter Summary ---
Author Organization [facility] Address [address] [place] [address] Phone Care Team Providers Care Manufacturing Mechanic Name Role Phone Jacquelyn Chandler MD Primary Care Provider Jessy Andersen AX SURVEY WORKER Primary Care Provider Jessy Andersen AX SURVEY WORKER Primary Care Provider Encounter Details Date Type Department Care Team ([facility] Contact Info) Description 12/15/2017 Ancillary Orders [facility],Outside Imaging 30 [place], [place] [id number] System, Provider Not In, [place] [address] Social History Tobacco Use Types Packs/Day Years [...] 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 Not on file Not on file documented as of this encounter Plan of Treatment Upcoming Encounters Date Type Department Care Team ([facility] Contact Info) Description 09/28/2024 Procedure Pass [address] [place] [address] 01/23/2025 2:45 PM EST Office Visit [facility] Gastroenterology Clinic 10 [place] [address] Unknown, Unknown, Nat Marquez PA-C [address] [address] 05/10/2025 9:15 AM EDT Appointment [address] [place] [address] Jessy Andersen, AMBIKA [address] [place] [address] documented as of this encounter Results * [...] documented as of this encounter Care Teams Manufacturing Mechanic Relationship Specialty Start Date End Date Jacquelyn Chandler MD [address] [place] [address] [email or web address] PCP - General Internal Medicine 12/01/17 01/28/23 Jessy Anedrsen NP [address] [place] [address] PCP - General Nurse Practitioner 01/29/23 12/15/24 Jessy Andersen NP [address] [place] [address] PCP - General Nurse Practitioner 12/16/24 documented as of this encounter Additional Source Comments The information contained in this document represents components of the legal health record. It is not the complete legal health record.[facility]
--- OUTSIDE RECORDS SUMMARY | 2024-12-26 17:58 | XMS_ITS | Encounter Summary ---
Author Organization [facility] Address [address] [place] [address] Phone Care Team Providers Care Boring Mill Set Up Operator Vertical Name Role Phone Jacquelyn Chandler MD Primary Care Provider [facility] GELATIN PLANT SUPERVISOR Primary Care Provider Jessy Andersen GELATIN PLANT SUPERVISOR Primary Care Provider Encounter Details Date Type Department Care Team (Late st Contact Info) Description 03/25/2018 Ancillary Orders Virtual Department 30 [place] [address] Jacquelyn Chandler MD [address] [place] [address] [email or web address] Low back pain, unspecified back pain laterality, [...] 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 Not on file Not on file documented as of this encounter Plan of Treatment Upcoming Encounters Date Type Department Care Team (Late st Contact Info) Description 09/28/2024 Procedure Pass [address] [place] [address] 01/23/2025 2:45 PM EST Office Visit [facility] 10 [place] [address] Unknown, Unknown, Nat Marquez PA-C 10 [facility] 2 [place] [address] 05/10/2025 9:15 AM EDT Appointment [address] [place] [address] Jessy Andersen, AMBIKA [address] [place] [address] documented as of this encounter Results * XR KNEE 4 OR MORE VIEWS (RIGHT) (03/29/2018 3:47 PM EST) Anatomical Region Laterality Modality Knee Right Radiographic Yolie ging 03/29/2018 4:09 PM EST Impressions 03/29/2018 4:12 PM EST Mild degenerative changes bilaterally. Chondrocalcinosis. POS - [id number] Narrative 03/29/2018 4:12 PM EST HISTORY: Right [...] Mild degenerative changes bilaterally. Chondrocalcinosis. POS - [id number] Jacquelyn Chandler MD IMG XR LOWER EXTREMITY Final Result * XR LUMBOSACRAL SPINE 4 OR MORE VIEWS (03/29/2018 3:46 PM EST) Anatomical Region Laterality Modality L-spine Radiographic Yolie ging 03/29/2018 4:19 PM EST Impressions 03/29/2018 4:21 PM EST Mild degenerative changes. No compression fractures. POS - [id number] Narrative 03/29/2018 4:21 PM EST HISTORY: Lower [...] degenerative changes. No compression fractures. POS - [id number] Jacquelyn Chandler MD IMG XR SPINE Final [...] documented as of this encounter Care Teams Boring Mill Set Up Operator Vertical Relationship Specialty Start Date End Date Jacquelyn Chandler MD [address] [place] [address] [email or web address] PCP - General Internal Medicine 12/01/17 01/28/23 Jessy Andersen NP [address] [place] [address] PCP - General Nurse Practitioner 01/29/23 12/15/24 Jessy Andersen NP [address] [place] [address] PCP - General Nurse Practitioner 12/16/24 documented as of this encounter Additional Source Comments The information contained in this document represents components of the legal health record. It is not the complete legal health record.[facility]
--- OUTSIDE RECORDS SUMMARY | 2024-12-26 17:58 | XMS_ITS | Encounter Summary ---
Author Organization [facility] Address [address] [place] [address] Phone Care Team Providers Care Telephone Coin Box Collector Name Role Phone Jacquelyn Chandler MD Primary Care Provider Jessy Andersen RD LAB TECHNICIAN Primary Care Provider Jessy Andersen RD LAB TECHNICIAN Primary Care Provider Encounter Details Date Type Department Care Team (Latest Contact Info) Description 03/13/2020 Transcribe Orders [address] [place] [address] Jacquelyn Chandler MD [address] [place] [address] [email or web address] Hyperlipidemia, unspecified hyperlipidemia type (Primary Dx); Hypertension, [...] Contact Info) Description 09/28/2024 Procedure Pass [address] [place] [address] 01/23/2025 2:45 PM EST Office Visit [facility] 10 [place] [address] Unknown, Unknown, Nat Marquez PA-C [address] [address] 05/10/2025 9:15 AM EDT Appointment [address] [place] [address] Jessy Andersen, AMBIKA [address] [place] [address] documented as of this encounter Results * (ABNORMAL) LFTs (hepatic panel) (03/13/2020 10:40 AM EST) ALKALINE PHOSPHATASE 73 39 - 117 U/L [facility] TOTAL BILIRUBIN 0.5 0.0 - 1.2 mg/dL [facility] DIRECT BILIRUBIN <0.2 0 - 0.3 mg/dL [facility] Bilirubin (Indirect) NOT CALCULATED 0 - 1.5 mg/dL [facility] AST 25 0 - 37 U/L [facility] ALT 15 0 - 40 U/L [facility] TOTAL PROTEIN 8.1(H) 6.5 - 8.0 g/dL [facility] ALBUMIN 4.5 3.9 - 4.8 g/dL [facility] GLOBULIN 3.6 1 - 4.8 g/dL [facility] A/G Ratio 1.25 1.00 - 4.80 RATIO [facility] Blood 03/13/2020 10:4 0 AM EST 03/13/2020 10:48 AM EST Jacquelyn Chandler MD LAB BLOOD ORDERABLES Final R esult [address] [address] * (ABNORMAL) 25-OH vitamin D (03/13/2020 10:40 AM EST) 25 OH VIT D (TOTAL) 24(L) 30 - 60 ng/mL [facility] Blood 03/13/2020 10:4 0 AM EST 03/13/2020 10:48 AM EST Jacquelyn Chandler MD LAB BLOOD ORDERABLES Final R esult Performing Organization Address City/[facility] Co de Phone Number [address] [address] * (ABNORMAL) CBC (03/13/2020 10:40 AM EST) WBC 4.81 4.00 - 11.00 K/uL [facility] Comment:Note Reference Range updates to all CBC and Differential results. RBC 4.77 3.72 - 5.30 M/uL [facility] HGB 13.0 11.4 - 15.9 g/dL [facility] Comment:Note updated Referen ce Ranges for all CBC and Differential results. HCT 41.2 34.2 - 46.8 % [facility] PLT 274 140 - 430 K/uL [facility] MCV 86.4 78.0 - 97.0 [facility] MCH 27.3 25.0 - 33.0 pg [facility] MCHC 31.6(L) 32.0 - 36.0 g/dL [facility] RDW 13.2 11.0 - 16.0 % [facility] MPV 10.7 8.4 - 12.8 [facility] NRBC 0.00 0 /100 WBCs [facility] ABSOLUTE NRBC 0.00 0 K/uL [facility] Blood 03/13/2020 10:4 0 AM EST 03/13/2020 10:48 AM EST Jacquelyn Chandler MD LAB BLOOD ORDERABLES Final R esult Performing Organization Address City/[facility]/ZIP Co de Phone Number [address] [address] * Basic metabolic panel (03/13/2020 10:40 AM EST) SODIUM 142 133 - 146 mmol/L [facility] CHLORIDE 104 96 - 108 mmol/L [facility] POTASSIUM 4.3 3.3 - 5.1 mmol/L [facility] CO2 28 21 - 35 mmol/L [facility] BUN 19 6 - 19 mg/dL [facility] CREATININE 1.00 0.5 - 1.5 mg/dL [facility] GLUCOSE 96 70 - 99 mg/dL [facility] CALCIUM 10.1 8.4 - 10.3 mg/dL [facility] EGFR 60 >59 mL/min/1.7 3m2 [facility] Comment:Estimated glomerular filtration rate calculated using the CKD-EPI equation. ANION GAP 14 10 - 20 mmol/L [facility] Blood 03/13/2020 10:4 0 AM EST 03/13/2020 10:48 AM EST Jacquelyn Chandler MD LAB BLOOD ORDERABLES Final R esult Performing Organization Address [facility] Co de Phone Number [address] [address] * (ABNORMAL) Lipid panel (03/13/2020 10:40 AM EST) HDL 50 mg/dL [facility] Comment: Interpretation <40 mg/dL: Low HDL cholesterol (major risk factor for CHD) Greater than or equal to 60 mg/dL: High HDL cholesterol ( negative risk factor for CHD) HDL - cholesterol is affected by a number of factors, e.g. smoking, excerise, hormones, sex and age. CHOLESTEROL 229 0 - 240 mg/dL [facility] TRIGLYCERIDES 115 30 - 160 mg/dL [facility] LDL 156(H) 50 - 129 mg/dL [facility] Comment: LDL levels in terms of risk for coronary heart disease: <100 mg/dL: Optimal 100-129 mg/dL: Near or above optimal 130-159 mg/dL: Borderline high 160-189 mg/dL: High >190 mg/dL: Very High CARDIAC RISK RATIO 4.6(H) 3.3 - 4.4 [facility] Blood 03/13/2020 10:4 0 AM EST 03/13/2020 10:48 AM EST us Jacquelyn Chandler MD LAB BLOOD ORDERABLES Final R esult [address] [address] documented in this encounter Visit Diagnoses Diagnosis Hyperlipidemia, unspecified hyperlipidemia type- Primary Hypertension, unspecified type Vitamin D deficiency, unspecified Nonspecific elevation of levels of transaminase or lactic acid dehydrogenase (LDH) documented in this encounter Additional Health Concerns Infection Onset Date Last Indicated Resolved Time CoV-Risk 12/21/2021 12/21/2021 01/01/2022 1:22 AM EDT documented as of this encounter Care Teams Telephone Coin Box Collector Relationship Specialty Start Date End Date Jacquelyn Chandler MD [address] [place] [address] [email or web address] PCP - General Internal Medicine 12/01/17 01/28/23 Jessy Andersen NP [address] [place] [address] PCP - General Nurse Practitioner 01/29/23 12/15/24 Jessy Andersen NP [address] [place] [address] PCP - General Nurse Practitioner 12/16/24 documented as of this encounter Additional Source Comments The information contained in this document represents components of the legal health record. It is not the complete legal health record.[facility]
--- OUTSIDE RECORDS SUMMARY | 2024-12-26 17:58 | XMS_ITS | Encounter Summary ---
Author Organization [facility] Address [address] [place] [address] [place] [address] Phone Care Team Providers Care Clinic Mgr Name Role Phone Jacquelyn Chandler MD Primary Care Provider Jessy Andersen SERVICE ASSISTANT Primary Care Provider Jessy Andersen SERVICE ASSISTANT Primary Care Provider Encounter Details Date Type Department Care Team (Late st Contact Info) Description 01/10/2020 Procedure Pass [address] [address] Social History Tobacco Use Types Packs/Day Years [...] Contact Info) Description 09/28/2024 Procedure Pass [address] Javier [place] [address] 01/23/2025 2:45 PM EST Office Visit [facility] G[facility] 10 [place] [address] Unknown, Unknown, Nat Marquez PA-C [address] [address] 05/10/2025 9:15 AM EDT Appointment [address] Javier [place] [address] Jessy Andersen NP [address] [place] [address] documented as of this encounter Visit Diagnoses Not on filedocumented in this encounter Additional Health Concerns Infection Onset Date Last Indicated Resolved Time CoV-Risk 12/21/2021 12/21/2021 01/01/2022 1:22 AM EDT documented as of this encounter Care Teams Clinic Mgr Relationship Specialty Start Date End Date Jacquelyn Chandler MD [address] [place] [address] [email or web address] PCP - General Internal Medicine 12/01/17 01/28/23 Jessy Andersen NP [address] [place] [address] PCP - General Nurse Practitioner 01/29/23 12/15/24 Jessy Andersen NP [address] [place] [address] PCP - General Nurse Practitioner 12/16/24 documented as of this encounter Additional Source Comments The information contained in this document represents components of the legal health record. It is not the complete legal health record.[facility]
--- OUTSIDE RECORDS SUMMARY | 2024-12-26 17:58 | XMS_ITS | Encounter Summary ---
Author Organization [facility] Address [address] [facility] [address] [place] [address] Phone Care Team Providers Care Floral Clerk Name Role Phone Jacquelyn Chandler MD Primary Care Provider [facility] OFF [facility] Care [facility] SETTER OFF Primary Care Provider Encounter Details Date Type Department Care Team (Late st Contact Info) Description 01/06/2020 Transcribe Orders [address] [place] [address] Taqueria Govea MD [address] [place] [address], [address] [place] [address] Social History Tobacco Use Types Packs/Day Years [...] Contact Info) Description 09/28/2024 Procedure Pass [address] [place] [address] 01/23/2025 2:45 PM EST Office Visit [facility] Gastroenterology Clinic 10 [place] [address] Unknown, Unknown, Nat Marquez PA-C [address] [address] 05/10/2025 9:15 AM EDT Appointment [address] [place] [address] [facility] Jessy Mary NP 73 [place] [address] documented as of this encounter Visit Diagnoses Not on filedocumented in this encounter Additional Health Concerns Infection Onset Date Last Indicated Resolved Time CoV-Risk 12/21/2021 12/21/2021 01/01/2022 1:22 AM EDT documented as of this encounter Care Teams Floral Clerk Relationship Specialty Start Date End Date Jacquelyn Chandler MD [address] [place] [address] PCP - General Internal Medicine 12/01/17 01/28/23 Jessy Andersen NP [address] [place] [address] PCP - General Nurse Practitioner 01/29/23 12/15/24 Jessy Andersen NP 70 [place] [address] PCP - General Nurse Practitioner 12/16/24 documented as of this encounter Additional Source Comments The information contained in this document represents components of the legal health record. It is not the complete legal health record.[facility]
--- OUTSIDE RECORDS SUMMARY | 2024-12-26 17:58 | XMS_ITS | Encounter Summary ---
Author Organization [facility] Address [address] [place] [address] Phone Care Team Providers Care Assistant Corporate Secretary Name Role Phone Jacquelyn Chandler MD Primary Care Provider Jessy Andersen MANUFACTURING SPECIALIST Primary Care Provider Jessy Andersen MANUFACTURING SPECIALIST Primary Care Provider Reason for Referral * MRI/CAT Scan - Closed Specialty Diagnoses / Procedures Referred By Gabriele canales Referred To Contact Radiology Diagnoses Memory loss Numbness Procedures MRI Brain Taqueria Aj MD Phone: tel: fax: [email or web address] Referral ID Status Reason Start Date Expiration Date Visits Re quested Visits Authorized [id number] Closed 01/09/2020 04/08/2020 1 1 Encounter Details Date Type Department Care Team (Latest Contact Info) Description 01/10/2020 Transcribe Orders [facility] Department [address] [place] [address] Taqueria Aj MD [address] [place] [address], [address] [place] [address] [email or web address] Memory loss (Primary Dx); Numbness; TIA [...] st Contact Info) Description 09/28/2024 Procedure Pass [address] [place] [address] 01/23/2025 2:45 PM EST Office Visit [facility] Gastro[facility]ology [facility] [address] [place] [address] Unknown, Unknown, Nat Marquez PA-C [address] [place] [address] [email or web address] 05/10/2025 9:15 AM EDT Appointment [address] [place] [address] Jessy Andersen, AMBIKA [address] [place] [address] documented as of this encounter Results * [...] vertebral artery flow. us Taqueria Aj MD US NEUROVASCULAR Final Re sult documented in [...] as of this encounter Care Teams Assistant Corporate Secretary Relationship Specialty Start Date End Date Jacquelyn Chandler MD [address] [place] [address] [email or web address] PCP - General Internal Medicine 12/01/17 01/28/23 Jessy Andersen NP [address] [place] [address] PCP - General Nurse Practitioner 01/29/23 12/15/24 Jessy Andersen NP [address] [place] [address] PCP - General Nurse Practitioner 12/16/24 documented as of this encounter Additional Source Comments The information contained in this document represents components of the legal health record. It is not the complete legal health record.[facility]
--- OUTSIDE RECORDS SUMMARY | 2024-12-26 17:58 | XMS_ITS | Encounter Summary ---
Author Organization [facility] Address [address] [place] [address] [place] [address] Phone Care Team Providers Care Certified Professional Coder Name Role Phone Jacquelyn Chandler MD Primary Care Provider [phone] Jessy Andersen GI TECH Primary Care Provider Jessy Andersen GI TECH Primary Care Provider Encounter Details Date Type Department Care Team (Late st Contact Info) Description 05/10/2020 Ancillary Orders Virtual Department [address] [place] [address] Jacquelyn Chandler MD [address] [place] [address] [email or web address] Pain [...] Contact Info) Description 09/28/2024 Procedure Pass [address] [place] [address] 01/23/2025 2:45 PM EST Office Visit [facility] Gastroenterology Clinic 10 [place] [address] Unknown, Unknown, Nat Marquez PA-C [address] [address] 05/10/2025 9:15 AM EDT Appointment [address] [place] [address] Jessy Andersen, GI TECH [address] [place] [address] documented as of this encounter Results * [...] documented as of this encounter Care Teams Certified Professional Coder Relationship Specialty Start Date End Date Jacquelyn Chandler MD [address] [place] [address] PCP - General Internal Medicine 12/01/17 01/28/23 Jessy Andersen NP [address] [place] [address] PCP - General Nurse Practitioner 01/29/23 12/15/24 Jessy Andersen NP [address] [place] [address] PCP - General Nurse Practitioner 12/16/24 documented as of this encounter Additional Source Comments The information contained in this document represents components of the legal health record. It is not the complete legal health record.[facility]
--- OUTSIDE RECORDS SUMMARY | 2024-12-26 17:58 | XMS_ITS | Encounter Summary ---
Author Organization [facility] Address [address] [place] [address] Phone Care Team Providers Care Education Spec Name Role Phone Jacquelyn Chandler MD Primary Care Provider Jessy Andersen STATE PILOT Primary Care Provider Jessy Andersen STATE PILOT Primary Care Provider Encounter Details Date Type Department Care Team (Latest Contact Info) Description 02/03/2018 Transcribe Orders [address] [place] [address] Richa Leach, LISA-C 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 Not on file Not on file documented as of this encounter Plan of Treatment Upcoming Encounters Date Type Department Care Team (Late st Contact Info) Description 09/28/2024 Procedure Pass [address] [place] [address] 01/23/2025 2:45 PM EST Office Visit [facility] Gastroenterology Clinic 10 [place] [address] Unknown, Unknown, Nat Marquez PA-C [address] [address] 05/10/2025 9:15 AM EDT Appointment [address] [place] [address] Jessy Andersen, AMBIKA [address] [place] [address] documented as of this encounter Results * Immunoglobulin A (02/03/2018 8:43 AM EST) IgA 220 70 - 400 mg/dL Blood 02/03/2018 8:43 AM EST 02/03/2018 8:50 AM EST us Richa Leach PA-C LAB BLOOD ORDERABLES Final Resu lt [address] [address] * C-Reactive Protein (02/03/2018 8:43 AM EST) C REACTIVE PROTEIN 3.6 0.0 - 4.0 mg/L Blood 02/03/2018 8:43 AM EST 02/03/2018 8:50 AM EST us Richa Leach PA-C LAB BLOOD ORDERABLES Final Resu lt [address] [address] * Comprehensive metabolic panel (02/03/2018 8:43 AM EST) SODIUM 140 133 - 146 mmol/L POTASSIUM 4.3 3.3 - 5.1 mmol/L CHLORIDE 103 96 - 108 mmol/L CO2 25 21 - 35 mmol/L BUN 15 6 - 19 mg/dL CREATININE 1.00 0.5 - 1.5 mg/dL GLUCOSE 88 70 - 99 mg/dL ALBUMIN 4.5 3.9 - 4.8 g/dL TOTAL PROTEIN 8.0 6.5 - 8.0 g/dL CALCIUM 9.9 8.4 - 10.3 mg/dL ALKALINE PHOSPHATASE 67 39 - 117 U/L TOTAL BILIRUBIN 0.5 0.0 - 1.2 mg/dL AST 26 0 - 37 U/L ALT 28 0 - 40 U/L GLOBULIN 3.5 1 - 4.8 g/dL EGFR 61 >59 mL/min/1.7 3m2 Comment:If patient is black, multiply result by 1.159. Estimated glomerular filtration rate calculated using the CKD-EPI equation. ANION GAP 16 10 - 20 mmol/L Blood 02/03/2018 8:43 AM EST 02/03/2018 8:50 AM EST Richa Leach PA-C LAB BLOOD ORDERABLES Final Resu lt [address] [address] * (ABNORMAL) CBC (02/03/2018 8:43 AM EST) WBC 5.96 3.40 - 11.20 K/uL RBC 4.86(H) 3.80 - 4.80 M/uL HGB 13.2 12.0 - 15.0 g/dL HCT 41.7 36.0 - 46.0 % PLT 274 130 - 400 K/uL MCV 85.8 79.0 - 98.0 fL MCH 27.2 27.0 - 34.8 pg MCHC 31.7 31.5 - 36.0 g/dL RDW 13.6 10.8 - 14.6 % MPV 11.7 9.4 - 12.4 [facility] NRBC 0.00 0.00 /100 WBCs ABSOLUTE NRBC 0.00 0.00 K/uL Blood 02/03/2018 8:43 AM EST 02/03/2018 8:50 AM EST Richa Leach PA-C LAB BLOOD ORDERABLES Final Resu lt Performing Organization Address City/State/[facility] Co de Phone Number [address] [address] documented in this encounter Visit Diagnoses Diagnosis Abdominal pain, unspecified abdominal location- Primary documented in this encounter Additional Health Concerns Infection Onset Date Last Indicated Resolved Time CoV-Risk 12/21/2021 12/21/2021 01/01/2022 1:22 AM EDT documented as of this encounter Care Teams Education Spec Relationship Specialty Start Date End Date Jacquelyn Chandler MD [address] [place] [address] [email or web address] PCP - General Internal Medicine 12/01/17 01/28/23 Jessy Andersen NP [address] [place] [address] PCP - General Nurse Practitioner 01/29/23 12/15/24 Jessy Andersen NP [address] [place] [address] PCP - General Nurse Practitioner 12/16/24 documented as of this encounter Additional Source Comments The information contained in this document represents components of the legal health record. It is not the complete legal health record.[facility]
--- OUTSIDE RECORDS SUMMARY | 2024-12-26 17:58 | XMS_ITS | Encounter Summary ---
Author Organization [facility] Address [address] [place] [address] Phone Care Team Providers Care Regional Forester Name Role Phone Jacquelyn Chandler MD Primary Care Provider [phone] [facility] [employer]ARMWORK[employer] Primary Care Provider Jessy Andersen [employer] Primary Care Provider Encounter Details Date Type Department Care Team (Late st Contact Info) Description 03/29/2018 Ancillary Orders Virtual Department [address] [place] [address] Jacquelyn Chandler MD [address] [place] [address] [email or web address] Low back pain, unspecified back pain laterality, [...] 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 Not on file Not on file documented as of this encounter Plan of Treatment Upcoming Encounters Date Type Department Care Team (Late st Contact Info) Description 09/28/2024 Procedure Pass [address] [place] [address] 01/23/2025 2:45 PM EST Office Visit [facility] Gastroenterology Clinic 10 [place] [address] Unknown, Unknown, Nat Marquez PA-C 10 [facility] 2 [place] [address] 05/10/2025 9:15 AM EDT Appointment [address] [place] [address] Jessy Andersen, AMBIKA [address] [place] [address] documented as of this encounter Results * XR Knee Standing (Bilateral, Single View Only) (03/29/2018 3:48 PM EST) Anatomical Region Laterality Modality Knee Right, Knee Bilateral Radio graphic Imaging 03/29/2018 4:09 PM EST Impressions 03/29/2018 4:12 PM EST Mild degenerative changes bilaterally. Chondrocalcinosis. POS - [id number] Narrative 03/29/2018 4:12 PM EST HISTORY: Right [...] Mild degenerative changes bilaterally. Chondrocalcinosis. POS - [id number] Jacquleyn Chandler MD IMG XR LOWER EXTREMITY Final [...] documented as of this encounter Care Teams Regional Forester Relationship Specialty Start Date End Date Jacquelyn Chandler MD [address] [place] [address] [email or web address] PCP - General Internal Medicine 12/01/17 01/28/23 Jessy Andersen NP [address] [place] [address] PCP - General Nurse Practitioner 01/29/23 12/15/24 Jessy Andersen NP [address] [place] [address] PCP - General Nurse Practitioner 12/16/24 documented as of this encounter Additional Source Comments The information contained in this document represents components of the legal health record. It is not the complete legal health record.[facility]
--- OUTSIDE RECORDS SUMMARY | 2024-12-26 17:58 | XMS_ITS | Encounter Summary ---
Author Organization [facility] Address [address] [place] [address] [place] [address] Phone Care Team Providers Care Complaint Manager Name Role Phone Jacquelyn Chandler MD Primary Care Provider [facility] FAMILY PROGRAM SPECIALIST Primary Care Provider Jessy Andersen FAMILY PROGRAM SPECIALIST Primary Care Provider Encounter Details Date Type Department Care Team (Latest Contact Info) Description 01/02/2020 Transcribe Orders [facility] [address] [place] [address] [place] [address] Geovani Kwan MD [address] [place] [address] Chest pain, unspecified type (Primary Dx) Social [...] Contact Info) Description 09/28/2024 Procedure Pass [address] [place] [address] 01/23/2025 2:45 PM EST Office Visit [facility]ology [facility] 10 [place] [address] Unknown, Unknown, Nat Marquez PA-C [address] [address] 05/10/2025 9:15 AM EDT Appointment [address] [place] [address] Jessy Andersen, AMBIKA [address] [place] [address] documented as of this encounter Results * CBC and differential (01/02/2020 8:42 AM EST) WBC 5.27 4.00 - 11.00 K/uL [facility] Comment:Note Reference Range updates to all CBC and Differential results. RBC 4.66 3.72 - 5.30 M/uL [facility] HGB 12.8 11.4 - 15.9 g/dL [facility] Comment:Note updated Referen ce Ranges for all CBC and Differential results. HCT 40.0 34.2 - 46.8 % [facility] PLT 270 140 - 430 K/uL [facility] MCV 85.8 78.0 - 97.0 fL [facility] MCH 27.5 25.0 - 33.0 pg [facility] MCHC 32.0 32.0 - 36.0 g/dL [facility] RDW 13.0 11.0 - 16.0 % [facility] MPV 11.2 8.4 - 12.8 [facility] NRBC 0.00 0 /100 WBCs [facility] ABSOLUTE NRBC 0.00 0 K/uL [facility] DIFF METHOD Auto [facility] NEUTS 53.2 43.0 - 75.0 % [facility] LYMPHS 35.9 18.2 - 47.4 % [facility] MONOS 7.6 4.00 - 11.00 % [facility] EOS 2.1 0.0 - 8.0 % [facility] BASOS 0.8 0.0 - 2.0 % [facility] Granulocytes, immature (%) 0.4 0.0 - 0.9 % [facility] ABSOLUTE NEUTS 2.81 1.80 - 7.70 K/uL [facility] ABSOLUTE LYMPHS 1.89 1.00 - 3.10 K/uL [facility] ABSOLUTE MONOS 0.40 0.20 - 0.80 K/uL [facility] ABSOLUTE EOS 0.11 0.00 - 0.80 K/uL [facility] ABSOLUTE BASOS 0.04 0.00 - 0.09 K/uL [facility] Granulocytes, immature 0.02 0.00 - 0.05 K/uL [facility] Blood 01/02/2020 8:42 AM EST 01/02/2020 8:44 AM EST us Renettar Denise Kwan MD LAB BLOOD ORDERABLES Final R esult Performing Organization Address City/State/[facility] Co de Phone Number [address] [address] * Basic metabolic panel (01/02/2020 8:42 AM EST) SODIUM 140 133 - 146 mmol/L [facility] CHLORIDE 103 96 - 108 mmol/L [facility] POTASSIUM 4.5 3.3 - 5.1 mmol/L [facility] CO2 28 21 - 35 mmol/L [facility] BUN 14 6 - 19 mg/dL [facility] CREATININE 1.00 0.5 - 1.5 mg/dL [facility] GLUCOSE 96 70 - 99 mg/dL [facility] CALCIUM 9.7 8.4 - 10.3 mg/dL [facility] EGFR 60 >59 mL/min/1.7 3m2 [facility] Comment:Estimated glomerular filtration rate calculated using the CKD-EPI equation. ANION GAP 14 10 - 20 mmol/L [facility] Blood 01/02/2020 8:42 AM EST 01/02/2020 8:44 AM EST Geovani Kwan MD LAB BLOOD ORDERABLES Final R esult [facility] [address] [place] [address] documented in this encounter Visit Diagnoses Diagnosis Chest pain, unspecified type- Primary documented in this encounter Additional Health Concerns Infection Onset Date Last Indicated Resolved Time CoV-Risk 12/21/2021 12/21/2021 01/01/2022 1:22 AM EDT documented as of this encounter Care Teams Complaint Manager Relationship Specialty Start Date End Date Jacquelyn Chandler MD [address] [place] [address] PCP - General Internal Medicine 12/01/17 01/28/23 Jessy Andersen NP [address] [place] [address] PCP - General Nurse Practitioner 01/29/23 12/15/24 [facility] [address] [place] [address] PCP - General Nurse Practitioner 12/16/24 documented as of this encounter Additional Source Comments The information contained in this document represents components of the legal health record. It is not the complete legal health record.[facility]
--- OUTSIDE RECORDS SUMMARY | 2024-12-26 17:58 | XMS_ITS | Encounter Summary ---
Author Organization [facility] Address [address] [place] [address] [place] [address] Phone Care Team Providers Care Counter Dish Carrier Name Role Phone Jacquelyn Chandler MD Primary Care Provider [facility] RADIATOR FITTER Primary Care Provider [facility] RADIATOR FITTER Primary Care Provider Encounter Details Date Type Department Care Team (Late st Contact Info) Description 12/14/2017 Ancillary Orders Virtual Department 30 [place] [address] Jacquelyn Chandler MD [address] [place] [address] [email or web address] Visit for screening mammogram Social History Tobacco [...] 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 Procedure Note Madie Caal MD - 11/14/2018 Bilateral full-field digital screening mammography is obtained [...] documented as of this encounter Care Teams Counter Dish Carrier Relationship Specialty Start Date End Date Jacquelyn Chandler MD [address] [place] [address] [email or web address] PCP - General Internal Medicine 12/01/17 01/28/23 [place], [place] AMBIKA Mary [address] [place] [address] PCP - General Nurse Practitioner 01/29/23 12/15/24 [place] AMBIKA Mary [address] [place] [address] PCP - General Nurse Practitioner 12/16/24 documented as of this encounter Additional Source Comments The information contained in this document represents components of the legal health record. It is not the complete legal health record.[facility]
--- OUTSIDE RECORDS SUMMARY | 2024-12-26 17:58 | XMS_ITS | Encounter Summary ---
Author Organization [facility] Address [address] [place] [address] [place] [address] Phone Care Team Providers Care Team Leader Name Role Phone Jacquelyn Chandler MD [facility] Provider [facility] RECORDER HELPER GRAVITY PROSPECTING [facility] Provider [facility] RECORDER HELPER GRAVITY PROSPECTING Primary Care Provider Encounter Details Date Type Department Care Team (Late st Contact Info) Description 04/29/2018 Ancillary Orders [facility], X-Ray - [address] [place] [address] Jacquelyn Chandler MD [address] [place] [address] [email or web address] Cervicalgia Social History Tobacco Use Types Packs/Day [...] 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 Not on file documented as of this encounter Plan of Treatment Upcoming Encounters Date Type Department Care Team (Late st Contact Info) Description 09/28/2024 Procedure Pass [address] [place] [address] 01/23/2025 2:45 PM EST Office Visit [facility] Gastroenterology Clinic 10 [place] [address] Unknown, Unknown, Nat Marquez PA-C [address] [address] 05/10/2025 9:15 AM EDT Appointment [address] [place] [address] Jessy Andersen, RECORDER HELPER GRAVITY PROSPECTING [address] [place] [address] documented as of this encounter Results * XR CERVICAL SPINE 4-5 VIEWS (04/29/2018 11:11 AM EST) Anatomical Region Laterality Modality C-spine Radiographic Yolie ging 04/29/2018 11:5 4 AM EST Impressions 04/29/2018 11:56 AM EST Mild discogenic endplate changes C5-T1. Normal cervical spine alignment. POS - [id number] Narrative 04/29/2018 11:56 AM EST XR CERVICAL [...] C5-T1. Normal cervical spine alignment. POS - [id number] Jacquelyn Chandler MD IMG XR SPINE Final Result documented in this encounter Visit Diagnoses Diagnosis Cervicalgia Cervicalgia documented in this encounter Additional Health Concerns Infection Onset Date Last Indicated Resolved Time CoV-Risk 12/21/2021 12/21/2021 01/01/2022 1:22 AM EDT documented as of this encounter Care Teams Team Leader Relationship Specialty Start Date End Date Jacquelyn Chandler MD [address] [place] [address] PCP - General Internal Medicine 12/01/17 01/28/23 [facility] [address] [place] [address] PCP - General Nurse Practitioner 01/29/23 12/15/24 [facility] [address] [place] [address] PCP - General Nurse Practitioner 12/16/24 documented as of this encounter Additional Source Comments The information contained in this document represents components of the legal health record. It is not the complete legal health record.[facility]
== END 2024-12-26 14:41 | disposition home or self-care (01) ==
LOC: HO.HSMS 14:19
PROVIDERS: PCP Nurse Practitioner; Visit Provider Psychiatry & Neurology Neurology
DX: R41.89 Other symptoms and signs involving cognitive functions and awareness (principal)
CPT/HCPCS: 99214; G2211

== ENCOUNTER → 2024-12-26 14:19 | Outpatient (BNVA) | payer OTHER, SELFPAY | PROVIDERS: PCP Nurse Practitioner; Visit Provider Psychiatry & Neurology Neurology | DX: R41.89 Other symptoms and signs involving cognitive functions and awareness (principal); R26.89 Other abnormalities of gait and mobility; R06.83 Snoring; Z79.82 Long term (current) use of aspirin | CPT/HCPCS: 99212 ==

== ENCOUNTER 2024-12-29 09:20 | Outpatient (AMB) | payer OTHER, SELFPAY ==
[2024-12-29 09:26] VITALS: BP 120/70; PULSE 83; O2SAT 97; BMI 27.9
--- NOTE | 2024-12-29 09:26 | MHC.OFFVIS ---
Vital Signs 12/29/24 09:26 Height 5 ft 5 in Weight 167 lb 8.821 oz BMI 27.9 BP 120/70 Blood Pressure Location Lt brachial Position Sitting Pulse 83 Pulse Source Pulse Oximeter Pulse Oximetry (%) 97 Oxygen Delivery Method Room Air Intake Visit Reasons: Ongoing prod cough, chest tightness, wheezing Practicing Md Anesthesiologist Required: No Accompanied by: Self / Same As Patient Allergies No Known Allergies Allergy (Verified 12/26/24 14:22) HPI Comments Details: The patient is a 69 year woman with a diagnosis of asthma in addition to rheumatoid arthritis presenting with worsening cough and palpitations. She was evaluated by Cardiology and had a full cardiac evaluation including cardiac catheterization not finding a clear cardiac source for her palpitations. She has also had Holter monitors and she has not been able to identify anything. Her palpitations have very significant and she does become very aware them and they are uncomfortable for her. She does have daytime drowsiness. She is scheduled to undergo a sleep study. Her Bozeman score is elevated 01/23. She is going to be home sleep study. However, with her palpitations would not be unreasonable to have an in-lab sleep study if that is nondiagnostic. In the meantime the patient does have a pulmonary function study from [facility] from 2019 which I personally reviewed demonstrating an obstructive ventilatory defect with the FEV1 to FVC of 69%. More recently in 2022 she had PFTs done here at [facility] demonstrating no evidence of any obstructive nor restrictive lung disease. Interestingly she also carries a diagnosis of rheumatoid arthritis. I do not have all the details. She had been seeing a sweatband separator in the past but then she lost follow-up. In the meantime the patient does have a CT scan from [facility] which I personally reviewed from 2019 demonstrating some increased interstitial markings at the bases of the lungs and some haziness suggesting the possibility of interstitial lung disease. The details not clear if this was going on when she was sick or not but still with a history of connective tissue disease interstitial lung conditions need to be in differential. On exam she does have some fine rales suggesting some degree of fibrosis. Therefore will go ahead and request blood work to assess for inflammatory conditions or hypersensitivity reactions. In addition to that the patient will undergo a repeat chest x-ray and PFTs since it has been sometime. The patient may need additional imaging studies such as CAT scan in the future. The patient is going to undergo the home sleep study and will follow-up with that as well. For now she will continue using her rescue inhaler. Will hold off on any additional maintenance medications until we follow-up with the blood work. 12/29/2024 the patient is here for sick visit. Apparently she was in her usual state health until about 2 weeks ago when she walked into her son's apartment that had been closed for awhile and she started developing some difficulty breathing and shortness of the throat. She started getting sick with fevers. She went to an urgent care. The patient is given a course of doxycycline and also prednisone. Although she could not take the prednisone because it was causing her adverse effects including headaches. Therefore she stopped it. Her chest congestion has improved but she still complaining of significant headaches sinus pressure and pressure on the chest area. She has been using her respiratory inhalers well. She was given an additional maintenance inhaler but she could not tolerate it either. She was making her feel nauseous since it was powdered. Respiratory exam sounds okay right now. Seems like she does have significant sinusitis. Will go ahead and start her on Sudafed and also Afrin to try to open up the nasal passages. In addition to that the patient can start Advair to see if this provides some relief. She has been taking Tylenol. She can also take ibuprofen as needed for some pain relief as far as musculoskeletal symptoms. If her symptoms are not getting better she can call next week and we can do additional blood work and imaging studies. But apparently she did have some baseline laboratories and x-rays at urgent care and she was told that there were okay. She has not appointment in January which will keep. She has any issues prior to this she can always call for further recommendations. [facility] Medical History Asthma ILD (interstitial lung disease) Gait instability Hypersomnia Snoring Cognitive impairment Surgical History S/P cardiac cath History of ear surgery History of section History of tonsillectomy History of cardiac cath Family History Mother Heart disease Cancer Father Stroke Social History Household Members: Children Household Members Other:: Son Alcohol intake: never Patient Tobacco Use Status: Never used Tobacco Current occupational status: retired Review of Systems Const Reports daytime sleepiness, Reports difficulty sleeping, Reports fever(s) and Reports headache(s) Eyes Reports dry eyes ENT Reports headache(s) and Denies nasal obstruction Card Reports chest pain, Reports palpitations and Reports dyspnea on exertion Resp Reports cough, Reports dyspnea on exertion and Reports wheezing GI Reports dyspepsia Musc Reports as per HPI, Reports myalgias, Reports arthralgias, Reports limited range of motion and Reports stiffness Skin/Breast Denies rash Neuro Reports headache(s) Endo Reports palpitations Nicholas/Lymph Reports no additional complaints Aller/Immun Reports wheezing Physical Exam Vital Signs: Last Vital Signs Pulse 83 12/29/24 09:26 BP 120/70 12/29/24 09:26 Pulse Ox 97 12/29/24 09:26 Oxygen Delivery Method Room Air 12/29/24 09:26 BMI result Body Mass Index 27.9 Assessment & Plan Assessment & Plan (1) URI (upper respiratory infection): Code(s): J06.9 - Acute upper respiratory infection, unspecified Category: Medical (2) ILD (interstitial lung disease): Code(s): J84.9 - Interstitial pulmonary disease, unspecified Category: Medical (3) Allergies: Code(s): T78.40XA - Allergy, unspecified, initial encounter Category: Medical Qualifiers: Encounter type: initial encounter Qualified Code(s): T78.40XA - Allergy, unspecified, initial encounter (4) Dyspnea: Code(s): R06.00 - Dyspnea, unspecified Category: Medical Qualifiers: Dyspnea type: dyspnea on exertion Qualified Code(s): R06.09 - Other forms of dyspnea (5) Hypersomnia: Code(s): G47.10 - Hypersomnia, unspecified Category: Medical (6) Asthma: Code(s): J45.909 - Unspecified asthma, uncomplicated Category: Medical Qualifiers: Asthma complication type: uncomplicated Asthma persistence: intermittent Asthma severity: mild Qualified Code(s): J45.20 - Mild intermittent asthma, uncomplicated Plan start Pseudophed start Afrin start Advair HFA NSAIDS as needed continue JALEEL as needed Awaiting Home PSH, if non diagnostic, then an inlab study maybe helpful continue singulair F/U 2-3 months Medications: New oxymetazoline 0.05% (Afrin (oxymetazoline)) 2 sprays intranasal Q12H PRN 22 mL 0RF nasal congestion 5 days ibuprofen 600 mg PO Q8H PRN 20 tabs 0RF pain 10 days fluticasone propion-salmeterol 115-21 mcg/actuation (Advair HFA) 2 puffs inhalation Q12H 12 grams 11RF 30 days pseudoephedrine HCl ER 120 mg PO Q12H 60 tabs 1RF 30 days Coding Level of Care Code Est Pt Level 4 (84512) Diagnoses URI (upper respiratory infection) J06.9 ILD (interstitial lung disease) J84.9 Allergy, initial encounter T78.40XA Encounter type: initial encounter Dyspnea on exertion R06.09 Dyspnea type: dyspnea on exertion Hypersomnia G47.10 Mild intermittent asthma without complication J45.20 Asthma complication type: uncomplicated Asthma persistence: intermittent Asthma severity: mild Time Spent (min) 16
--- OUTSIDE RECORDS SUMMARY | 2024-12-29 10:38 | XMS_ITS | Encounter Summary ---
Author Organization [facility] Address [address] [place] [address] Phone Care Team Providers Care Cardiac Care Nurse Name Role Phone Jacquelyn Chandler MD Primary Care Provider [phone] Jessy Andersen CAREERS ADVISER Primary Care Provider Jessy Andersen CAREERS ADVISER Primary Care Provider Encounter Details Date Type Department Care Team (Late st Contact Info) Description 06/24/2018 Ancillary Orders [facility], X-Ray - [address] [place] [address] Cammie Rodriguez, PATamraC [address] [facility], [address] [place] [address] [email or web address] Left foot [...] 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 Not on file documented as of this encounter Plan of Treatment Upcoming Encounters Date Type Department Care Team (Late st Contact Info) Description 09/28/2024 Procedure Pass [address] [place] [address] 01/02/2025 3:30 PM EST Office Visit [facility] Rehabilitation Services [address] [place] [address] Brooke Pressley MD [address] [facility] [address] [place] [address] Kim Braun, PT 380 [place] [address] 01/23/2025 2:45 PM EST Office Visit [facility] Gastroenterology Clinic 10 [place] [address] Unknown, Unknown, Nat Marquez PA-C [address] [address] 05/10/2025 9:15 AM EDT Appointment [address] [place] [address] Jessy Andersen, AMBIKA [address] [place] [address] documented as of this encounter Results * XR FOOT 3 OR MORE VIEWS (LEFT) (06/24/2018 10:30 AM EDT) Anatomical Region Laterality Modality Foot Left Radiographic Yolie ging 06/24/2018 12:3 4 PM EDT Impressions 06/24/2018 3:12 PM EDT Calcaneal spurring and ligamentous calcification. No fracture or dislocation. POS - [id number] Narrative 06/24/2018 3:12 PM EDT XR FOOT [...] calcification. No fracture or dislocation. POS - [id number] Cammie Rodriguez PA-C IMNino XR LOWER EXTREMITY Final Result documented in this encounter Visit Diagnoses Diagnosis Left foot pain Pain in soft tissues of limb Left foot pain Pain in soft tissues of limb documented in this encounter Additional Health Concerns Infection Onset Date Last Indicated Resolved Time CoV-Risk 12/21/2021 12/21/2021 01/01/2022 1:22 AM EDT documented as of this encounter Care Teams Cardiac Care Nurse Relationship Specialty Start Date End Date Jacquelyn Chandler MD [address] [place] [address] [email or web address] PCP - General Internal Medicine 12/01/17 01/28/23 Jessy Andersen NP [address] [place] [address] PCP - General Nurse Practitioner 01/29/23 12/15/24 Jessy Andersen NP [address] [place] [address] PCP - General Nurse Practitioner 12/16/24 documented as of this encounter Additional Source Comments The information contained in this document represents components of the legal health record. It is not the complete legal health record.[facility]
--- OUTSIDE RECORDS SUMMARY | 2024-12-29 10:38 | XMS_ITS | Encounter Summary ---
Author Organization [facility] Address [address] [place] [address] [place] [address] Phone Care Team Providers Care Beef Cattle Specialist Name Role Phone Jacquelyn Chandler MD Primary Care Provider Jessy Andersen CASEWORK MANAGER Primary Care Provider Jessy Andersen CASEWORK MANAGER Primary Care Provider Encounter Details Date Type Department Care Team (Latest Contact Info) Description 11/27/2021 Transcribe Orders [facility] Laboratory [address] [address] Nat Tam PA 10 [place] [address] Abdominal pain, left lower quadrant (Primary Dx); [...] Contact Info) Description 09/28/2024 Procedure Pass [address] [place] [address] 01/02/2025 3:30 PM EST Office Visit [facility] Rehabilitation Services 380 [place] [address] Brooke Pressley MD 299 [facility] [address] [place] [address] Kim Braun, PT 380 [place] [address] 01/23/2025 2:45 PM EST Office Visit [facility] G[facility]ology [facility] 10 [place] [address] Unknown, Unknown, Nat Marquez PA-C [address] [address] 05/10/2025 9:15 AM EDT Appointment [place] [address] [place] [address] Jessy Andersen, AMBIKA [address] [place] [address] documented as of this encounter Results * (ABNORMAL) 25-OH vitamin D (11/27/2021 11:43 AM EDT) 25 OH VIT D (TOTAL) 26(L) 30 - 60 ng/mL [facility] Blood 11/27/2021 11:4 3 AM EDT 11/27/2021 11:47 AM EDT us Nat GONZALEZ LAB BLOOD ORDERABLES Final Result [address] [address] * Vitamin B12 (11/27/2021 11:43 AM EDT) VITAMIN B12 1,048 232 - 1,245 pg/mL [facility] Blood 11/27/2021 11:4 3 AM EDT 11/27/2021 11:47 AM EDT us Nat GONZALEZ LAB BLOOD ORDERABLES Final Result Performing Organization Address [facility] Co de Phone Number [address] [address] * CBC (11/27/2021 11:43 AM EDT) WBC 5.75 4.00 - 11.00 K/uL [facility] RBC 4.62 3.72 - 5.30 M/uL [facility] HGB 13.0 11.4 - 15.9 g/dL [facility] HCT 39.5 34.2 - 46.8 % [facility] PLT 286 140 - 430 K/uL [facility] MCV 85.5 78.0 - 97.0 fL [facility] MCH 28.1 25.0 - 33.0 pg [facility] MCHC 32.9 32.0 - 36.0 g/dL [facility] RDW 13.5 11.0 - 16.0 % [facility] MPV 11.1 8.4 - 12.8 fl [facility] Blood 11/27/2021 11:4 3 AM EDT 11/27/2021 11:47 AM EDT us Nat GONZALEZ LAB BLOOD ORDERABLES Final Result Performing Organization Address [facility] Co de Phone Number [address] [address] documented in this encounter Visit Diagnoses Diagnosis Abdominal pain, left lower quadrant- Primary Abdominal pain, right lower quadrant documented in this encounter Additional Health Concerns Infection Onset Date Last Indicated Resolved Time CoV-Risk 12/21/2021 12/21/2021 01/01/2022 1:22 AM EDT Assessment Noted Time PHQ-2 Depression Total Score: 0 07/30/19 10:09 AM EDT documented as of this encounter Care Teams Beef Cattle Specialist Relationship Specialty Start Date End Date Jacquelyn Chandler MD [address] [place] [address] [email or web address] PCP - General Internal Medicine 12/01/17 01/28/23 Jessy Andersen NP [address] [place] [address] PCP - General Nurse Practitioner 01/29/23 12/15/24 Jessy Andersen NP [address] [place] [address] PCP - General Nurse Practitioner 12/16/24 documented as of this encounter Additional Source Comments The information contained in this document represents components of the legal health record. It is not the complete legal health record.[facility]
--- OUTSIDE RECORDS SUMMARY | 2024-12-29 10:38 | XMS_ITS | Encounter Summary ---
Author Organization [facility] Address [address] [place] [address] [place] [address] Phone Care Team Providers Care Black And White Printer Operator Name Role Phone Jacquelyn Chandler MD Primary Care Provider Jessy Andersen RIBBON HAND Primary Care Provider Jessy Andersen RIBBON HAND Primary Care Provider Encounter Details Date Type Department Care Team (Late st Contact Info) Description 09/26/2021 Procedure Pass [facility], Ct Scan - [address] [address] Social History Tobacco Use Types Packs/Day Years [...] Contact Info) Description 09/28/2024 Procedure Pass [address] [place] [address] 01/02/2025 3:30 PM EST Office Visit [facility] Rehabilitation Services [address] [place] [address] Brooke Pressley MD 299 [facility] [address] [place] [address] Kim Braun, PT 380 [place] [address] 01/23/2025 2:45 PM EST Office Visit [facility] Gastroenterology Clinic 10 [place] [address] Unknown, Unknown, Nat Marquez PA-C [address] [address] 05/10/2025 9:15 AM EDT Appointment [address] [place] [address] Jessy Andersen NP 73 [place] [address] documented as of this encounter Visit Diagnoses Not on filedocumented in this encounter Additional Health Concerns Infection Onset Date Last Indicated Resolved Time CoV-Risk 12/21/2021 12/21/2021 01/01/2022 1:22 AM EDT Assessment Noted Time PHQ-2 Depression Total Score: 0 07/30/19 10:09 AM EDT documented as of this encounter Care Teams Black And White Printer Operator Relationship Specialty Start Date End Date Jacquelyn Chandler MD [address] [place] [address] PCP - General Internal Medicine 12/01/17 01/28/23 Jessy Andersen NP [address] [place] [address] PCP - General Nurse Practitioner 01/29/23 12/15/24 Jessy Andersen NP 70 [place] [address] PCP - General Nurse Practitioner 12/16/24 documented as of this encounter Additional Source Comments The information contained in this document represents components of the legal health record. It is not the complete legal health record.[facility]
--- OUTSIDE RECORDS SUMMARY | 2024-12-29 10:38 | XMS_ITS | Encounter Summary ---
Author Organization [facility] Address [address] [place] [address] Phone Care Team Providers Care Software Systems Architect Name Role Phone Jacquelyn Chandler MD Primary Care Provider Jessy Andersen SLICING MACHINE OPERATOR Primary Care Provider Jessy Andersen SLICING MACHINE OPERATOR Primary Care Provider Reason for Referral * Outpatient Procedure - Closed Specialty Diagnoses / Procedures Referred By Gabriele canales Referred To Contact Radiology Diagnoses Abdominal pain, epigastric Nausea Procedures NM Gastric Emptying Seth Jeter MD Phone: tel: fax: [email or web address] Referral ID Status Reason Start Date Expiration Date Visits Re quested Visits Authorized [id number] Closed 06/07/2018 06/07/2019 1 1 Encounter Details Date Type Department Care Team (Latest Contact Info) Description 06/07/2018 Transcribe Orders Virtual Department [address] [place] [address] Seth Jeter MD [address] [place] [address] Abdominal pain, epigastric (Primary Dx); Nausea Social [...] 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 Not on file documented as of this encounter Plan of Treatment Upcoming Encounters Date Type Department Care Team (Late st Contact Info) Description 09/28/2024 Procedure Pass [address] [place] [address] 01/02/2025 3:30 PM EST Office Visit [facility] Rehabilitation Services [address] [place] [address] Brooke Pressley MD 299 [facility] [address] [place] [address] Kim Braun, PT [address] [place] [address] 01/23/2025 2:45 PM EST Office Visit [facility] [address] [place] [address] Unknown, Unknown, Nat Marquez PA-C [address] [address] 05/10/2025 9:15 AM EDT Appointment [address] [place] [address] Jessy Andersen, AMBIKA [address] [place] [address] documented as of this encounter Results * [...] Normal study. POS [id number] Seth Jeter MD [facility] [place] ABDOM[place] Final Result * US ABDOMEN LIMITED RIGHT UPPER QUADRANT (06/30/2018 8:28 AM EDT) Anatomical Region Laterality Modality Abdomen Ultrasound 06/30/2018 8:22 AM EDT Impressions 06/30/2018 8:33 AM EDT No findings to account for the patient's symptoms. POS [id number] Narrative 06/30/2018 8:33 AM EDT COMPARISON: None. [...] to account for the patient's symptoms. POS [id number] us Seth Jeter MD IMG US ABDOMEN Final Result documented in this encounter Visit Diagnoses Diagnosis Abdominal pain, epigastric- Primary Nausea Nausea alone Abdominal pain, epigastric Nausea Nausea alone Abdominal pain, epigastric Nausea Nausea alone documented in this encounter Additional Health Concerns Infection Onset Date Last Indicated Resolved Time CoV-Risk 12/21/2021 12/21/2021 01/01/2022 1:22 AM EDT documented as of this encounter Care Teams Software Systems Architect Relationship Specialty Start Date End Date Jacquelyn Chandler MD [address] [place] [address] PCP - General Internal Medicine 12/01/17 01/28/23 [place], [place] AMBIKA Mary [address] [place] [address] PCP - General Nurse Practitioner 01/29/23 12/15/24 [place], [place] AMBIKA Mary [address] [place] [address] PCP - General Nurse Practitioner 10/17/25 documented as of this encounter Additional Source Comments The information contained in this document represents components of the legal health record. It is not the complete legal health record.[facility]
--- OUTSIDE RECORDS SUMMARY | 2024-12-29 10:38 | XMS_ITS | Encounter Summary ---
Author Organization [facility] Address [address] [facility] [facility] [address] [place] [address] Phone Care Team Providers Care Track Helper Name Role Phone Jacquelyn Chandler MD Primary Care Provider Jessy Andersen DOCTORATE OF CHIROPRACTIC Primary Care Provider Jessy Andersen DOCTORATE OF CHIROPRACTIC Primary Care Provider Encounter Details Date Type Department Care Team (Late st Contact Info) Description 06/24/2018 Ancillary Orders [facility] at [address] [address] Cammie Rodriguez, PATamraC 170 [facility], [address] [place] [address] [email or web address] Social History Tobacco Use Types Packs/Day Years [...] 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 Not on file Not on file documented as of this encounter Plan of Treatment Upcoming Encounters Date Type Department Care Team (Late st Contact Info) Description 09/28/2024 Procedure [address] [place] [address] 01/02/2025 3:30 PM EST Office Visit [facility] 380 [place] [address] Brooke Pressley MD 299 [facility] [address] [place] [address] Kim Braun, PT 380 [place] [address] 01/23/2025 2:45 PM EST Office Visit [facility] 10 [place] [address] Unknown, Unknown, Nat Marquez PA-C [address] [address] 05/10/2025 9:15 AM EDT Appointment [address] [place] [address] Jessy Andersen NP [address] [facility] [address] documented as of this encounter Visit Diagnoses Not on filedocumented in this encounter Additional Health Concerns Infection Onset Date Last Indicated Resolved Time CoV-Risk 12/21/2021 12/21/2021 01/01/2022 1:22 AM EDT documented as of this encounter Care Teams Track Helper Relationship Specialty Start Date End Date Jacquelyn Chandler MD [address] [place] [address] 1 [place] [address] PCP - General Internal Medicine 12/01/17 01/28/23 Jessy Andersen NP [address] [address] PCP - General Nurse Practitioner 01/29/23 12/15/24 Jessy Andersen NP [address] [place] [address] PCP - General Nurse Practitioner 12/16/24 documented as of this encounter Additional Source Comments The information contained in this document represents components of the legal health record. It is not the complete legal health record.[facility]
--- OUTSIDE RECORDS SUMMARY | 2024-12-29 10:38 | XMS_ITS | Encounter Summary ---
Author Organization [facility] Address [address] [place] [address] Phone Care Team Providers Care Space Technologist Name Role Phone Jacquelyn Chandler MD Primary Care Provider Jessy Andersen ADMINISTRATOR OF HOME HEALTH Primary Care Provider Jessy Andersen ADMINISTRATOR OF HOME HEALTH Primary Care Provider Encounter Details Date Type Department Care Team (Latest Contact Info) Description 12/05/2021 Transcribe Orders Virtual Department 30 [place] [address] Nat Tam PA [address] [place] [address] Pelvic pain (Primary Dx) Social History Tobacco [...] Contact Info) Description 09/28/[address] [place] [address] 01/02/2025 3:30 PM EST Office Visit [facility] 380 [place] [address] Brooke Pressley MD 299 [facility] [address] [place] [address] Kim Braun, PT 380 [place] [address] 01/23/2025 2:45 PM EST Office Visit [facility] 10 [place] [address] Unknown, Unknown, Nat Marquez PA-C [address] [address] 05/10/2025 9:15 AM EDT Appointment [address] [place] [address] Jessy Andersen, AMBIKA [address] [place] [address] documented as of this encounter Results * [...] asymptomatic and ovarian and other adnexal cysts (Chris et al., Radiology 2010 256: 943-54). Narrative [...] documented as of this encounter Care Teams Space Technologist Relationship Specialty Start Date End Date Jacquelyn Chandler MD [address] [place] [address] [email or web address] PCP - General Internal Medicine 12/01/17 01/28/23 Jessy Andersen NP [address] [place] [address] PCP - General Nurse Practitioner 01/29/23 12/15/24 Jessy Andersen NP [address] [place] [address] PCP - General Nurse Practitioner 12/16/24 documented as of this encounter Additional Source Comments The information contained in this document represents components of the legal health record. It is not the complete legal health record.[facility]
--- OUTSIDE RECORDS SUMMARY | 2024-12-29 10:39 | XMS_ITS | Encounter Summary ---
Author Organization [employer] Address [address] [facility] 7t [place] [address] Care Team Providers Care Dean Of Graduate Studies Name Role Phone [facility] Primary Care Provider [phone] Encounter Details Date Type Department Care Team (Late st Contact Info) Description 09/01/2024 Orders Only [facility] 58 [place] [address] Jessy Andersen, [facility] 70 [place] [address] Social History Tobacco Use Types Packs/Day Years [...] 03/24/2025 11:40 AM EST Office Visit [facility] 70 [place] [address] [facility] Jessy [facility] 70 [place] [address] documented as of this encounter Procedures Procedure Name Priority Date/Time Associated Diagnosis Comments COMPREHENSIVE METABOLIC PANEL Routine 08/29/2024 11:29 AM EDT documented in this encounter Results * Comprehensive Metabolic Panel (08/29/2024 11:29 AM EDT) Blood Venous blood specimen / Unknown [facility] LAB BLOOD ORDERABLES Ana l Result documented in this encounter Visit Diagnoses Not on filedocumented in this encounter Care Teams Dean Of Graduate Studies Relationship Specialty Start Date End Date Jessy Andersen FNP 70 [place] [address] PCP - General Family Medicine 10/01/22 documented as of this encounter
--- OUTSIDE RECORDS SUMMARY | 2024-12-29 10:39 | XMS_ITS | Encounter Summary ---
Author Organization [facility] Address [address] [place] [address] [place] [address] Phone Care Team Providers Care Hinging Machine Operator Name Role Phone Jacquelyn Chandler MD Primary Care Provider [phone] Jessy Andersen STRIPPER APPRENTICE Primary Care Provider Jessy Andersen STRIPPER APPRENTICE Primary Care Provider Encounter Details Date Type Department Care Team (Latest Contact Info) Description 06/18/2020 Transcribe Orders [address] [place] [address] Jacquelyn Chandler MD [address] [place] [address] [email or web address] Screening examination for pulmonary tuberculosis (Primary Dx); [...] Contact Info) Description 09/28/2024 Procedure Pass [address] [place] [address] 01/02/2025 3:30 PM EST Office Visit [facility] 380 [place] [address] Brooke Pressley MD 299 [facility] [address] [place] [address] Kim Braun, PT 380 [place] [address] 01/23/2025 2:45 PM EST Office Visit [facility] 10 [place] [address] Unknown, Unknown, Nat Marquez PA-C [address] [address] 05/10/2025 9:15 AM EDT Appointment [address] [place] [address] Jessy Andersen, STRIPPER APPRENTICE 73 [place] [address] documented as of this encounter Results * T spot TB test (06/18/2020 8:42 AM EDT) [facility] T-SPOT.TB Negative [facility] Comment: (NOTE) Normal Value: Negative A negative [...] Spot Count Corrected For Neg Control 0 [facility] Panel B Spot Count Corrected For Neg Control 0 [facility] Negative Control Passed [facility] Positive Control Passed [facility] Blood 06/18/2020 8:42 AM EDT 06/18/2020 8:47 AM EDT Jacquelyn Chandler MD LAB BLOOD ORDERABLES Final R esult Performing Organization Address City/[facility]/ZIP Co de Phone Number [facility] [address] [place] [phone] [phone] * (ABNORMAL) 25-OH vitamin D (06/18/2020 8:42 AM EDT) 25 OH VIT D (TOTAL) 26(L) 30 - 60 ng/mL [facility] Blood 06/18/2020 8:42 AM EDT 06/18/2020 8:47 AM EDT Jacquelyn Chandler MD LAB BLOOD ORDERABLES Final R esult Performing Organization Address City/[facility]/ZIP Co de Phone Number [address] [address] * Lipid panel (06/18/2020 8:42 AM EDT) HDL 50 mg/dL [facility] Comment: Interpretation <40 mg/dL: Low HDL cholesterol (major risk factor for CHD) Greater than or equal to 60 mg/dL: High HDL cholesterol ( negative risk factor for CHD) HDL - cholesterol is affected by a number of factors, e.g. smoking, excerise, hormones, sex and age. CHOLESTEROL 202 0 - 240 mg/dL [facility] TRIGLYCERIDES 118 30 - 160 mg/dL [facility] LDL 128 50 - 129 mg/dL [facility] Comment: LDL levels in terms of risk for coronary heart disease: <100 mg/dL: Optimal 100-129 mg/dL: Near or above optimal 130-159 mg/dL: Borderline high 160-189 mg/dL: High >190 mg/dL: Very High CARDIAC RISK RATIO 4.0 3.3 - 4.4 C [facility] Blood 06/18/2020 8:42 AM EDT 06/18/2020 8:47 AM EDT us Jacquelyn Chandler MD LAB BLOOD ORDERABLES Final R esult Performing Organization Address [facility] Co de Phone Number [address] [address] * CPK (creatine kinase) (06/18/2020 8:42 AM EDT) CREATINE KINASE 48 21 - 215 U/L [facility] Blood 06/18/2020 8:42 AM EDT 06/18/2020 8:47 AM EDT us Jacquelyn Chandler MD LAB BLOOD ORDERABLES Final R esult Performing Organization Address [facility] Co de Phone Number [address] [address] * Aspartate aminotransferase (AST) (06/18/2020 8:42 AM EDT) AST 26 0 - 37 U/L [facility] Blood 06/18/2020 8:42 AM EDT 06/18/2020 8:47 AM EDT us Jacquelyn Chandler MD LAB BLOOD ORDERABLES Final R esult Performing Organization Address [facility] Co de Phone Number [address] [address] * Alanine aminotransferase (ALT) (06/18/2020 8:42 AM EDT) ALT 25 0 - 40 U/L [facility] Blood 06/18/2020 8:42 AM EDT 06/18/2020 8:47 AM EDT us Jacquelyn Chandler MD LAB BLOOD ORDERABLES Final R esult [facility] 30 [place] [address] documented in this encounter Visit Diagnoses Diagnosis Screening examination for pulmonary tuberculosis- Primary Hyperlipidemia, unspecified hyperlipidemia type Vitamin D deficiency, unspecified documented in this encounter Additional Health Concerns Infection Onset Date Last Indicated Resolved Time CoV-Risk 12/21/2021 12/21/2021 01/01/2022 1:22 AM EDT documented as of this encounter Care Teams Hinging Machine Operator Relationship Specialty Start Date End Date Jacquelyn Chandler MD [address] [place] [address] PCP - General Internal Medicine 12/01/17 01/28/23 Jessy Andersen NP [address] [place] [address] PCP - General Nurse Practitioner 01/29/23 12/15/24 Jessy Andersen NP [address] [place] [address] PCP - General Nurse Practitioner 12/16/24 documented as of this encounter Additional Source Comments The information contained in this document represents components of the legal health record. It is not the complete legal health record.[facility]
--- OUTSIDE RECORDS SUMMARY | 2024-12-29 10:39 | XMS_ITS | Encounter Summary ---
Author Organization [facility] Address [address] [place] [address] [place] [address] Phone Care Team Providers Care Laminator Preforms Name Role Phone Jacquelyn Chandler MD Primary Care Provider Jessy Andersen CLERICAL TRANSCRIBER Primary Care Provider Jessy Andersen CLERICAL TRANSCRIBER Primary Care Provider Encounter Details Date Type Department Care Team (Latest Contact Info) Description 10/04/2018 Transcribe Orders [facility] Laboratory 10 [facility] 2nd [place] [address] Seth Jeter MD [address] [address] [email or web address] Malabsorption due to intolerance, not elsewhere classified [...] 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 [address] [place] [address] Kim Braun, PT 380 [place] [address] 01/23/2025 2:45 PM EST Office Visit [facility] 10 [place] [address] Unknown, Unknown, Nat Marquez PA-C [address] [address] 05/10/2025 9:15 AM EDT Appointment [address] [place] [address] Jessy Andersen, CLERICAL TRANSCRIBER [address] [facility] [place] [address] documented as of this encounter Results * C-Reactive Protein (10/04/2018 1:59 PM EDT) C REACTIVE PROTEIN 3.2 0.0 - 4.0 mg/L [facility] Blood 10/04/2018 1:59 PM EDT 10/04/2018 2:04 PM EDT us Seth Jeter MD LAB BLOOD ORDERABLES Final R esult [address] [address] * CBC (10/04/2018 1:59 PM EDT) WBC 6.90 3.40 - 11.20 K/uL [facility] RBC 4.70 3.80 - 4.80 M/uL [facility] HGB 13.1 12.0 - 15.0 g/dL [facility] HCT 39.7 36.0 - 46.0 % [facility] PLT 261 130 - 400 K/uL [facility] MCV 84.5 79.0 - 98.0 fL [facility] MCH 27.9 27.0 - 34.8 pg [facility] MCHC 33.0 31.5 - 36.0 g/dL [facility] RDW 13.1 10.8 - 14.6 % [facility] MPV 11.4 9.4 - 12.4 fl [facility] NRBC 0.00 0.00 /100 WBCs [facility] ABSOLUTE NRBC 0.00 0.00 K/uL [facility] Blood 10/04/2018 1:59 PM EDT 10/04/2018 2:04 PM EDT us Seth Jeter MD LAB BLOOD ORDERABLES Final R esult Performing Organization Address [facility] de Phone Number [address] [address] * Tissue transglutaminase IgA (10/04/2018 1:59 PM EDT) Pathologist [facility] TTG IGA ANTIBODY <1.2 <4.0 (Negative) U/mL [facility] Blood 10/04/2018 1:59 PM EDT 10/04/2018 2:03 PM EDT us Seth Jeter MD LAB BLOOD ORDERABLES Final R esult Performing Organization Address [facility] Co de Phone Number [facility] [address] [place] [address] documented in this encounter Visit Diagnoses Diagnosis Malabsorption due to intolerance, not elsewhere classified- Primary Gastroesophageal reflux disease without esophagitis Esophageal reflux documented in this encounter Additional Health Concerns Infection Onset Date Last Indicated Resolved Time CoV-Risk 12/21/2021 12/21/2021 01/01/2022 1:22 AM EDT documented as of this encounter Care Teams Laminator Preforms Relationship Specialty Start Date End Date Jacquelyn Chandler MD [address] [place] [address] [email or web address] PCP - General Internal Medicine 12/01/17 01/28/23 Jessy Andersen NP [address] [place] [address] PCP - General Nurse Practitioner 01/29/23 12/15/24 Jessy Andersen NP [address] [place] [address] PCP - General Nurse Practitioner 12/16/24 documented as of this encounter Additional Source Comments The information contained in this document represents components of the legal health record. It is not the complete legal health record.[facility]
--- OUTSIDE RECORDS SUMMARY | 2024-12-29 10:39 | XMS_ITS | Encounter Summary ---
Author Organization [facility] Address [address] [place] [address] Phone Care Team Providers Care Pharmaceutical Sales Specialist Name Role Phone Jessy Andersen MANAGER EXPORT Primary Care Provider Jessy Andersen MANAGER EXPORT Primary Care Provider Encounter Details Date Type Department Care Team (Late st Contact Info) Description 09/22/2024 Transcribe Orders Virtual Department 30 [place] [address] Jessy Andersen NP [address] [place] [address] Nausea and vomiting, unspecified vomiting type (Primary [...] st Contact Info) Description 09/28/2024 Procedure Pass [facility] - [address] [place] [address] 01/02/2025 3:30 PM EST Office Visit [facility] [address] [place] [address] Brooke Pressley MD [address] [place] [address] [address] [place] [address] Kim Braun, PT 380 [place] [address] 01/23/2025 2:45 PM EST Office Visit [facility] 10 [place] [address] Unknown, Unknown, Nat Marquez PA-C [address] [address] 05/10/2025 9:15 AM EDT Appointment [address] [place] [address] Jessy Andersen, MANAGER EXPORT [address] [place] [address] documented as of this encounter Results * [...] clinician's provided indication for this examination in [place]: Outside Radiology Order; Nausea/vomiting; EPIGASTRIC PAIN TECHNIQUE: [...] clinician's provided indication for this examination in [facility]:Outside Radiology Order; Nausea/vomiting; EPIGASTRIC PAIN TECHNIQUE: US [...] No sonographically evident renal calculi. Jessy Andersen MANAGER EXPORT IMG US ABDOMEN Final Result documented in this encounter Visit Diagnoses Diagnosis Nausea and vomiting, unspecified vomiting type- Primary Nausea and vomiting, unspecified vomiting type documented in this encounter Additional Health Concerns Assessment Noted Time PHQ-2 Depression Total Score: 0 09/02/19 10:16 AM EDT documented as of this encounter Care Teams Pharmaceutical Sales Specialist Relationship Specialty Start Date End Date Jessy Andersen NP PCP - General Nurse Practitioner 01/29/23 12/15/24 Jessy Andersen NP [address] [place] [address] PCP - General Nurse Practitioner 12/16/24 documented as of this encounter Additional Source Comments The information contained in this document represents components of the legal health record. It is not the complete legal health record.[facility]
--- OUTSIDE RECORDS SUMMARY | 2024-12-29 10:39 | XMS_ITS | Encounter Summary ---
Author Organization [employer] Address [address] [facility] 7t [place] [address] Care Team Providers Care Actuarial Director Name Role Phone [facility] Primary Care Provider [phone] Encounter Details Date Type Department Care Team (Late st Contact Info) Description 11/03/2024 Orders Only [facility] [address] [place] [address] Jessy Andersen, [facility] 70 [place] [address] Social History Tobacco Use Types Packs/Day Years [...] Description 03/24/2025 11:40 AM EST Office Visit [place] 70 [place] [address] [facility] 70 [place] [address] documented as of this encounter Procedures Procedure Name Priority Date/Time Associated Diagnosis Comments SED RATE BY MODIFIED WESTERGREN Routine 11/02/2024 2:06 PM EDT CBC WITH AUTO DIFFERENTIAL Routine 11/02/2024 2:06 PM EDT documented in this encounter Results * Sed Rate by Modified Westergren (11/02/2024 2:06 PM EDT) Blood Venous blood specimen / Unknown [facility] LAB BLOOD ORDERABLES Ana l Result * CBC auto differential (11/02/2024 2:06 PM EDT) Blood Venous blood specimen / Unknown [facility] LAB BLOOD ORDERABLES Ana l Result documented in this encounter Visit Diagnoses Not on filedocumented in this encounter Care Teams Actuarial Director Relationship Specialty Start Date End Date [facility] 70 [place] [address] PCP - General Family Medicine 10/01/22 documented as of this encounter
--- OUTSIDE RECORDS SUMMARY | 2024-12-29 10:39 | XMS_ITS | Encounter Summary ---
Author Organization [facility] Address [address] [place] [address] [place] [address] Phone Care Team Providers Care Drapery Inspector Name Role Phone Jacquelyn Chandler MD Primary Care Provider [facility] Primary Care Provider [facility]y Tyra HEART NURSE Primary Care Provider Reason for Referral * Consultation (Elective) - Closed Specialty Diagnoses / Procedures Referred By Gabriele canales Referred To Contact Pulmonary Disease Jacquelyn Chandler MD Phone: tel: [email or web address] [facility] [address] [place] [address] Phone: tel: Referral ID Status Reason Start Date Expiration Date Visits Re quested Visits Authorized [id number] Closed 06/21/2020 06/21/2021 1 1 Encounter Details Date Type Department Care Team ([facility] st Contact Info) Description 06/21/2020 Transcribe Orders [facility] Pulmonary, Allergy and Critical Care Medicine 10 [place] [address] Jacquelyn Chandler MD [address] [place] [address] Social History Tobacco Use Types Packs/Day Years [...] st Contact Info) Description 09/28/2024 Procedure Pass [address] [place] [address] 01/02/2025 3:30 PM EST Office Visit [facility] 380 [place] [address] Brooke Pressley MD [address] [address] Kim Braun, PT 380 [place] [address] 01/23/2025 2:45 PM EST Office Visit [facility] [address] [place] [address] Unknown, Unknown, Nat Marquez PA-C [address] [place] [address] 05/10/2025 9:15 AM EDT Appointment [address] [place] [address] Jessy Andersen, HEART NURSE [address] [place] [address] Scheduled Referrals Name Type Priority Associated Diagnoses Order Schedule Ambulatory referral to [facility] Pulmonology Outpatient Referral Routine Ordered: 06/21/2020 documented as of this encounter Visit Diagnoses Not on filedocumented in this encounter Additional Health Concerns Infection Onset Date Last Indicated Resolved Time CoV-Risk 12/21/2021 12/21/2021 01/01/2022 1:22 AM EDT documented as of this encounter Care Teams Drapery Inspector Relationship Specialty Start Date End Date Jacquelyn Chandler MD [address] [address] [email or web address] PCP - General Internal Medicine 12/01/17 01/28/23 Jessy Andersen NP [address] [place] [address] PCP - General Nurse Practitioner 01/29/23 12/15/24 Jessy Andersen NP [address] [place] [address] PCP - General Nurse Practitioner 12/16/24 documented as of this encounter Additional Source Comments The information contained in this document represents components of the legal health record. It is not the complete legal health record.[facility]
--- OUTSIDE RECORDS SUMMARY | 2024-12-29 10:39 | XMS_ITS | Encounter Summary ---
Author Organization [facility] Address [address] [place] [address] [place] [address] Phone Care Team Providers Care Stiff Leg Derrick Operator Name Role Phone Jacquelyn Chandler MD Primary Care Provider [facility] SENIOR NET SOFTWARE ENGINEER Primary Care Provider Jessy Adnersen SENIOR NET SOFTWARE ENGINEER Primary Care Provider Encounter Details Date Type Department Care Team (Latest Contact Info) Description 09/12/2019 Transcribe Orders [address] [place] [address] Seth Jeter MD [address] [place] [phone] [email or web address] Abdominal pain, RLQ [...] 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 Not on file documented as of this encounter Plan of Treatment Upcoming Encounters Date Type Department Care Team (Late st Contact Info) Description 09/28/2024 Procedure Pass [address] [place] [address] 01/02/2025 3:30 PM EST Office Visit [facility] Rehabilitation Services [address] [place] [address] Brooke Pressley MD 299 [facility] [address] [place] [address] Kim Braun, PT 380 [place] [address] 01/23/2025 2:45 PM EST Office Visit [facility] 10 [place] [address] Unknown, Unknown, Nat Marquez PA-C 10 [facility] 2 [place] [address] 05/10/2025 9:15 AM EDT Appointment [address] [place] [address] Jessy Andersen, AMBIKA [address] [place] [address] documented as of this encounter Results * (ABNORMAL) Creatinine/eGFR (09/12/2019 2:54 PM EDT) CREATININE 1.10 0.5 - 1.5 mg/dL [facility] EGFR 54(L) >59 mL/min/1.7 3m2 [facility] Comment:Estimated glomerular filtration rate calculated using the CKD-EPI equation. Blood 09/12/2019 2:54 PM EDT 09/12/2019 2:56 PM EDT us Seth Jeter MD LAB BLOOD ORDERABLES Final R esult Performing Organization Address City/[facility]/ZIP Co de Phone Number [address] [address] * BUN (09/12/2019 2:54 PM EDT) BUN 17 6 - 19 mg/dL [facility] Blood 09/12/2019 2:54 PM EDT 09/12/2019 2:56 PM EDT Seth Jeter MD LAB BLOOD ORDERABLES Final R esult Performing Organization Address City/[facility]/ZIP Co de Phone Number [address] [address] documented in this encounter Visit Diagnoses Diagnosis Abdominal pain, RLQ- Primary documented in this encounter Additional Health Concerns Infection Onset Date Last Indicated Resolved Time CoV-Risk 12/21/2021 12/21/2021 01/01/2022 1:22 AM EDT documented as of this encounter Care Teams Stiff Leg Derrick Operator Relationship Specialty Start Date End Date Jacquelyn Chandler MD [address] [place] [phone] PCP - General Internal Medicine 12/01/17 01/28/23 Jessy Andersen NP [address] [place] [address] PCP - General Nurse Practitioner 01/29/23 12/15/24 Jessy Andersen NP [address] [place] [address] PCP - General Nurse Practitioner 12/16/24 documented as of this encounter Additional Source Comments The information contained in this document represents components of the legal health record. It is not the complete legal health record.[facility]
--- OUTSIDE RECORDS SUMMARY | 2024-12-29 10:39 | XMS_ITS | Encounter Summary ---
Author Organization [facility] Address [address] [place] [address] [place] [address] Phone Care Team Providers Care Coal Deliverer Name Role Phone Jacquelyn Chandler MD Primary Care Provider [phone] [facility] MANAGER INPATIENT Primary Care Provider Jessy Andersen MANAGER INPATIENT Primary Care Provider Encounter Details Date Type Department Care Team (Late st Contact Info) Description 11/15/2018 Ancillary Orders Virtual Department [address] [place] [address] Jacquelyn Chandler MD [address] [place] [address] [email or web address] Breast screening Social History Tobacco Use Types [...] 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 Not on file documented as of this encounter Plan of Treatment Upcoming Encounters Date Type Department Care Team (Late st Contact Info) Description 09/28/2024 Procedure Pass [address] [place] [address] 01/02/2025 3:30 PM EST Office Visit [facility] Rehabilitation Services [address] [place] [address] Brooke Pressley MD [address] [place] [address] Kim Braun, PT 380 [place] [address] 01/23/2025 2:45 PM EST Office Visit [facility] 10 [place] [address] Unknown, Unknown, Nat Marquez PA-C [address] [address] [email or web address] 05/10/2025 9:15 AM EDT Appointment [address] [place] [address] Jessy Andersen, MANAGER INPATIENT 73 [place] [address] documented as of this encounter Results * [...] documented as of this encounter Care Teams Coal Deliverer Relationship Specialty Start Date End Date Jacquelyn Chandler MD [address] [place] [address] PCP - General Internal Medicine 12/01/17 01/28/23 Jessy Andersen NP [address] [place] [address] PCP - General Nurse Practitioner 01/29/23 12/15/24 Jessy Andersen NP 70 [place] [address] PCP - General Nurse Practitioner 12/16/24 documented as of this encounter Additional Source Comments The information contained in this document represents components of the legal health record. It is not the complete legal health record.[facility]
--- OUTSIDE RECORDS SUMMARY | 2024-12-29 10:39 | XMS_ITS | Encounter Summary ---
Author Organization [facility] Address [address] [place] [address] [place] [address] Phone Care Team Providers Care Rubber Trimmer Name Role Phone Jacquelyn Chandler MD Primary [facility] Provider [facility] NOTARY PUBLIC Primary Care Provider [facility] NOTARY PUBLIC Primary Care Provider Reason for Referral * MRI/CAT Scan - Closed Specialty Diagnoses / Procedures Referred By Gabriele canales Referred To Contact Radiology Diagnoses Nausea LLQ pain Procedures CT Abdomen/Pelvis Seth Jeter MD Phone: tel: fax: [email or web address] Referral ID Status Reason Start Date Expiration Date Visits Re quested Visits Authorized [id number] Closed 08/17/2018 11/15/2018 1 1 Encounter Details Date Type Department Care Team (Latest Contact Info) Description 08/18/2018 Transcribe Orders Virtual Department 30 [place] [address] Seth Jeter MD [address] [place] [address] Nausea (Primary Dx); LLQ pain Social History [...] 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 Gastroenterology Clinic [address] [place] [address] Unknown, Unknown, Nat Marquez PA-C [address] [address] 05/10/2025 9:15 AM EDT Appointment [address] [place] [address] Jessy Andersen, AMBIKA [address] [place] [address] documented as of this encounter Results * [...] only. TOTAL CTDIvol: 5.8 mGy POS - [id number] Edited by: Karen Jin on 08/26/2018 10:37 [...] only. TOTAL CTDIvol: 5.8 mGy POS - [id number] Edited by: Karen Jin on 08/26/2018 10:37 [...] documented as of this encounter Care Teams Rubber Trimmer Relationship Specialty Start Date End Date Jacquelyn Chandler MD [address] [place] [address] [email or web address] PCP - General Internal Medicine 12/01/17 01/28/23 Jessy Andersen NP [address] [place] [address] PCP - General Nurse Practitioner 01/29/23 12/15/24 Jessy Andersen NP [address] [place] [address] PCP - General Nurse Practitioner 12/16/24 documented as of this encounter Additional Source Comments The information contained in this document represents components of the legal health record. It is not the complete legal health record.[facility]
--- OUTSIDE RECORDS SUMMARY | 2024-12-29 10:39 | XMS_ITS | Encounter Summary ---
Author Organization [facility] Address [address] [place] [address] Phone Care Team Providers Care Top Lift Cutter Name Role Phone Jacquelyn Chandler MD Primary Care Provider Jessy Andersen PRODUCTION LINE OPERATOR Primary Care Provider Jessy Andersen PRODUCTION LINE OPERATOR Primary Care Provider Encounter Details Date Type Department Care Team (Late st Contact Info) Description 08/09/2020 Ancillary Orders [facility] 30 [place], [place] [phone] System, Provider Not In, [place] [address] Social History Tobacco Use Types Packs/Day Years [...] st Contact Info) Description 09/28/2024 Procedure Pass [address] [place] [address] 01/02/2025 3:30 PM EST Office Visit [facility] Rehabilitation Services 380 [place] [address] Brooke Pressley MD [address] [facility] [address] [place] [address] Kim Braun, PT 380 [place] [address] 01/23/2025 2:45 PM EST Office Visit [facility]ology Clinic 10 [place] [address] Unknown, Unknown, Nat Marquez PA-C [address] [address] 05/10/2025 9:15 AM EDT Appointment [address] [place] [address] Jessy Andersen, PRODUCTION LINE OPERATOR 73 [place] [address] documented as of this encounter Results * [...] documented as of this encounter Care Teams Top Lift Cutter Relationship Specialty Start Date End Date Jacquelyn Chandler MD [address] [place] [address] [email or web address] PCP - General Internal Medicine 12/01/17 01/28/23 Jessy Andersen NP [address] [place] [address] PCP - General Nurse Practitioner 01/29/23 12/15/24 Jessy Andersen NP [address] [place] [address] PCP - General Nurse Practitioner 12/16/24 documented as of this encounter Additional Source Comments The information contained in this document represents components of the legal health record. It is not the complete legal health record.[facility]
--- OUTSIDE RECORDS SUMMARY | 2024-12-29 10:39 | XMS_ITS | Encounter Summary ---
Author Organization [facility] Address [address] [place] [address] [place] [address] Phone Care Team Providers Care Wood Grinder Operator Name Role Phone Jacquelyn Chandler MD Primary Care Provider Jessy Andersen CAPPING MACHINE OPERATOR Primary Care Provider Jessy Andersen CAPPING MACHINE OPERATOR Primary Care Provider Encounter Details Date Type Department Care Team (Latest Contact Info) Description 11/30/2018 Transcribe Orders [address] [place] [address] Jacquelyn Chandler MD [address] [place] [address] [email or web address] Pain in joint, multiple sites (Primary Dx); [...] 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 Not on file documented as of this encounter Plan of Treatment Upcoming Encounters Date Type Department Care Team (Late st Contact Info) Description 09/28/2024 Procedure Pass [address] [place] [address] 01/02/2025 3:30 PM EST Office Visit [facility] Rehabilitation Services 380 [place] [address] Brooke Pressley MD 299 [facility] [address] [place] [address] Kim Braun, PT 380 [place] [address] 01/23/2025 2:45 PM EST Office Visit [facility]ology Clinic 10 [place] [address] Unknown, Unknown, Nat Marquez PA-C [address] [address] 05/10/2025 9:15 AM EDT Appointment [address] [place] [address] Jessy Andersen, AMBIKA [address] [place] [address] documented as of this encounter Results * Homocysteine (11/30/2018 9:10 AM EDT) HOMOCYSTEINE, TOTAL 8.1 0 - 14.2 umol/L [facility] Blood 11/30/2018 9:10 AM EDT 11/30/2018 9:17 AM EDT us Jacquelyn Chandler MD LAB BLOOD ORDERABLES Final R esult [address] [address] * Vitamin B12 (11/30/2018 9:10 AM EDT) VITAMIN B12 655 232 - 1,245 pg/mL [facility] Blood 11/30/2018 9:10 AM EDT 11/30/2018 9:17 AM EDT Jacquelyn Chandler MD LAB BLOOD ORDERABLES Final R esult Performing Organization Address [facility] Co de Phone Number [address] [address] * Folate (11/30/2018 9:10 AM EDT) FOLIC ACID 13.5 4.2 - 19.9 ng/mL [facility] Blood 11/30/2018 9:10 AM EDT 11/30/2018 9:17 AM EDT Jacquelyn Chandler MD LAB BLOOD ORDERABLES Final R esult Performing Organization Address [facility] de Phone Number [address] [address] * Methylmalonic acid, serum (11/30/2018 9:10 AM EDT) METHYLMALONIC ACID 0.12 <=0.40 nmol/mL [facility] DPT OF LAB MED AND PAT+ Comment: (NOTE) ADDITIONAL INFORMATION This test was developed and its performance characteristics determined by [facility] in a manner consistent with CLIA requirements. This test has not been cleared or approved by the U.S. Food and Drug Administration. Blood 11/30/2018 9:10 AM EDT 11/30/2018 2:18 PM EDT us Jacquelyn Chandler MD LAB BLOOD ORDERABLES Final R esult Performing Organization Address City/[facility]/ZIP Co de Phone Number [facility] DPT OF LAB MED AND PAT+ [address] [place] [address] * Basic metabolic panel (11/30/2018 9:10 AM EDT) SODIUM 141 133 - 146 mmol/L [facility] CHLORIDE 103 96 - 108 mmol/L [facility] POTASSIUM 4.8 3.3 - 5.1 mmol/L [facility] CO2 26 21 - 35 mmol/L [facility] BUN 18 6 - 19 mg/dL [facility] CREATININE 0.90 0.5 - 1.5 mg/dL [facility] GLUCOSE 95 70 - 99 mg/dL [facility] CALCIUM 9.7 8.4 - 10.3 mg/dL [facility] EGFR 69 >59 mL/min/1.7 3m2 [facility] Comment:If patient is black, multiply result by 1.159. Estimated glomerular filtration rate calculated using the CKD-EPI equation. ANION GAP 17 10 - 20 mmol/L [facility] Blood 11/30/2018 9:10 AM EDT 11/30/2018 9:17 AM EDT us Jacquelyn Chandler MD LAB BLOOD ORDERABLES Final R esult [facility] 30 [place] [address] * (ABNORMAL) Lipid panel (11/30/2018 9:10 AM EDT) HDL 45 mg/dL [facility] Comment: Interpretation <40 mg/dL: Low HDL cholesterol (major risk factor for CHD) Greater than or equal to 60 mg/dL: High HDL cholesterol ( negative risk factor for CHD) HDL - cholesterol is affected by a number of factors, e.g. smoking, excerise, hormones, sex and age. CHOLESTEROL 323(H) 0 - 240 mg/dL [facility] TRIGLYCERIDES 222(H) 30 - 160 mg/dL [facility] LDL 234(H) 50 - 129 mg/dL [facility] Comment: LDL levels in terms of risk for coronary heart disease: <100 mg/dL: Optimal 100-129 mg/dL: Near or above optimal 130-159 mg/dL: Borderline high 160-189 mg/dL: High >190 mg/dL: Very High CARDIAC RISK RATIO 7.2(H) 3.3 - 4.4 [facility] Blood 11/30/2018 9:10 AM EDT 11/30/2018 9:17 AM EDT Jacquelyn Chandler MD LAB BLOOD ORDERABLES Final R esult Performing Organization Address City/[facility]/ZIP Co de Phone Number [address] [address] * (ABNORMAL) Lyme screen with reflex to Western blot, blood (11/30/2018 9:10 AM EDT) Lyme AB IgG Negative Negative [facility] Lyme AB IgM Equivocal(A) Negative [facility] Comment:The Lyme Disease Ant ibody, Confirmation, Serum (Western Blot) has been reflexed. The results will follow. Blood 11/30/2018 9:10 AM EDT 11/30/2018 9:17 AM EDT Jacquelyn Chandler MD LAB BLOOD ORDERABLES Final R esult Performing Organization Address City/[facility] Co de Phone Number [address] [address] * Sedimentation rate (ESR) (11/30/2018 9:10 AM EDT) ESR 17 0 - 30 mm/h [facility] Blood 11/30/2018 9:10 AM EDT 11/30/2018 9:17 AM EDT Jacquelyn Chandler MD LAB BLOOD ORDERABLES Final R esult Performing Organization Address City/[facility]/ZIP Co de Phone Number [address] [address] * CPK (creatine kinase) (11/30/2018 9:10 AM EDT) CREATINE KINASE 40 21 - 215 U/L [facility] Blood 11/30/2018 9:10 AM EDT 11/30/2018 9:17 AM EDT us Jacquelyn Chandler MD LAB BLOOD ORDERABLES Final R esult [facility] 30 [place] [address] * CCP IgG antibodies (11/30/2018 9:10 AM EDT) ANTI-CCP IGG <8 0 - 16 U/mL [facility] Blood 11/30/2018 9:10 AM EDT 11/30/2018 9:17 AM EDT Jacquelyn Chandler MD LAB BLOOD ORDERABLES Final R esult Performing Organization Address City/[facility] Co de Phone Number [address] [address] * CBC and differential (11/30/2018 9:10 AM EDT) WBC 5.14 3.40 - 11.20 K/uL [facility] RBC 4.77 3.80 - 4.80 M/uL [facility] HGB 13.3 12.0 - 15.0 g/dL [facility] HCT 40.6 36.0 - 46.0 % [facility] PLT 283 130 - 400 K/uL [facility] MCV 85.1 79.0 - 98.0 fL [facility] MCH 27.9 27.0 - 34.8 pg [facility] MCHC 32.8 31.5 - 36.0 g/dL [facility] RDW 13.5 10.8 - 14.6 % [facility] MPV 11.2 9.4 - 12.4 fl [facility] NRBC 0.00 0.00 /100 WBCs [facility] ABSOLUTE NRBC 0.00 0.00 K/uL [facility] DIFF METHOD Auto [facility] NEUTS 60.6 45.30 - 77.70 % [facility] LYMPHS 30.0 12.30 - 39.70 % [facility] MONOS 6.2 4.10 - 12.80 % [facility] EOS 1.8 0 - 7.2 % [facility] BASOS 1.2 0 - 2.80 % [facility] Granulocytes, immature (%) 0.2 0.0 - 0.9 % [facility] ABSOLUTE NEUTS 3.12 1.40 - 7.70 K/uL [facility] ABSOLUTE LYMPHS 1.54 0.60 - 3.20 K/uL [facility] ABSOLUTE MONOS 0.32 0.11 - 0.59 K/uL [facility] ABSOLUTE EOS 0.09 0.01 - 0.50 K/uL [facility] ABSOLUTE BASOS 0.06 0.00 - 0.08 K/uL [facility] Granulocytes, immature 0.01 0.00 - 0.05 K/uL [facility] Blood 11/30/2018 9:10 AM EDT 11/30/2018 9:17 AM EDT Jacquelyn Chandler MD LAB BLOOD ORDERABLES Final R esult [address] [address] * (ABNORMAL) C-Reactive Protein (11/30/2018 9:10 AM EDT) C REACTIVE PROTEIN 8.6(H) 0.0 - 4.0 mg/L [facility] Blood 11/30/2018 9:10 AM EDT 11/30/2018 9:17 AM EDT Jacquelyn Chandler MD LAB BLOOD ORDERABLES Final R esult Performing Organization Address City/[facility]/ZIP Co de Phone Number [address] [address] * Antinuclear antibody (NEGAR) (11/30/2018 9:10 AM EDT) NEGAR SCREEN ON HEP 2 Negative Negative [facility] Blood 11/30/2018 9:10 AM EDT 11/30/2018 9:17 AM EDT Jacquelyn Chandler MD LAB BLOOD ORDERABLES Final R esult [facility] [address] [place] [address] documented in this encounter Visit Diagnoses Diagnosis Pain in joint, multiple sites- Primary Hyperlipidemia, unspecified hyperlipidemia type Annual physical exam Routine general medical examination at a health care facility Mild neurocognitive disorder documented in this encounter Additional Health Concerns Infection Onset Date Last Indicated Resolved Time CoV-Risk 12/21/2021 12/21/2021 01/01/2022 1:22 AM EDT documented as of this encounter Care Teams Wood Grinder Operator Relationship Specialty Start Date End Date Jacquelyn Chandler MD [address] [place] [address] [email or web address] PCP - General Internal Medicine 12/01/17 01/28/23 Jessy Andersen NP [address] [place] [address] PCP - General Nurse Practitioner 01/29/23 12/15/24 Jessy Andersen NP [address] [place] [address] PCP - General Nurse Practitioner 12/16/24 documented as of this encounter Additional Source Comments The information contained in this document represents components of the legal health record. It is not the complete legal health record.[facility]
--- OUTSIDE RECORDS SUMMARY | 2024-12-29 10:39 | XMS_ITS | Encounter Summary ---
Author Organization [facility] Address [address] [place] [address] [place] [address] Phone Care Team Providers Care Him Manager Name Role Phone Jacquelyn Chandler MD Primary Care Provider Jessy Andersen ENAMEL SHADER Primary Care Provider Jessy Andersen ENAMEL SHADER Primary Care Provider Reason for Referral * MRI/CAT Scan - Closed Specialty Diagnoses / Procedures Referred By Gabriele canales Referred To Contact Radiology Diagnoses Abnormal findings on diagnostic imaging of liver and biliary tract RLQ abdominal pain Procedures CT Abdomen/Pelvis Seth Jeter MD Phone: tel: fax: [email or web address] Referral ID Status Reason Start Date Expiration Date Visits Re quested Visits Authorized [id number] Closed 09/28/2019 01/18/2020 1 1 Encounter Details Date Type Department Care Team (Latest Contact Info) Description 09/28/2019 Transcribe Orders Virtual Department [address] [place], [place] [phone] Seth Jeter MD [address] [place] [address] Abnormal findings on diagnostic imaging of liver [...] st Contact Info) Description 09/28/2024 Procedure Pass [address] [place] [address] 01/02/2025 3:30 PM EST Office Visit [facility] Rehabilitation Services [address] [place] [address] Brooke Pressley MD [address] [place] [address] [place] [address] Kim Braun, PT [address] [place] [address] 01/23/2025 2:45 PM EST Office Visit [facility] Gastro[facility]ology [facility] 10 [place] [address] Unknown, Unknown, Nat Marquez PA-C [address] [address] 05/10/2025 9:15 AM EDT Appointment [address] [place] [address] Jessy Andersen, ENAMEL SHADER [address] [place] [address] documented as of this encounter Results * [...] documented as of this encounter Care Teams Him Manager Relationship Specialty Start Date End Date Jacquelyn Chandler MD [address] [place] [address] PCP - General Internal Medicine 12/01/17 01/28/23 Jessy Andersen NP [address] [place] [address] PCP - General Nurse Practitioner 01/29/23 12/15/24 Jessy Andersen NP [address] [place] [address] PCP - General Nurse Practitioner 12/16/24 documented as of this encounter Additional Source Comments The information contained in this document represents components of the legal health record. It is not the complete legal health record.[facility]
--- OUTSIDE RECORDS SUMMARY | 2024-12-29 10:39 | XMS_ITS | Encounter Summary ---
Author Organization [facility] Address [address] [place] [address] [place] [address] Phone Care Team Providers Care Feedlot Manager Name Role Phone Jacquelyn Chandler MD [facility] DRY BOX OPERATOR Primary Care Provider [facility] DRY BOX OPERATOR Primary Care Provider Encounter Details Date Type Department Care Team (Late st Contact Info) Description 04/02/2021 Transcribe Orders [address] [place] [address] Jacquelyn Chandler MD [address] [place] [address] Vitamin D deficiency, unspecified (Primary Dx); Encounter [...] Contact Info) Description 09/28/2024 Procedure Pass [address] [place] [address] 01/02/2025 3:30 PM EST Office Visit [facility] Rehabilitation Services [address] [place] [address] Brooke Pressley MD 299 [facility] [address] [place] [address] Kim Braun, PT 380 [place] [address] 01/23/2025 2:45 PM EST Office Visit [facility] Gastroenterology Clinic 10 [place] [address] Unknown, Unknown, Nat Marquez PA-C [address] [address] 05/10/2025 9:15 AM EDT Appointment [address] [place] [address] Jessy Andersen, AMBIKA [address] [place] [address] documented as of this encounter Results * ABO and Rh (04/02/2021 9:42 AM EST) ABO/Rh A Positive [facility] Resulting Agency [facility] Blood 04/02/2021 9:42 AM EST 04/02/2021 9:45 AM EST us Jacquelyn Chandler MD BLOOD BANK TEST ORDERABLES F inal Result [facility] 30 [place] [address] * (ABNORMAL) 25-OH vitamin D (04/02/2021 9:42 AM EST) 25 OH VIT D (TOTAL) 24(L) 30 - 60 ng/mL [facility] Blood 04/02/2021 9:42 AM EST 04/02/2021 9:45 AM EST Jacquelyn Chandler MD LAB BLOOD ORDERABLES Final R esult [facility] [address] [place] [address] documented in this encounter Visit Diagnoses Diagnosis Vitamin D deficiency, unspecified- Primary Encounter for blood typing documented in this encounter Additional Health Concerns Infection Onset Date Last Indicated Resolved Time CoV-Risk 12/21/2021 12/21/2021 01/01/2022 1:22 AM EDT documented as of this encounter Care Teams Feedlot Manager Relationship Specialty Start Date End Date Jacquelyn Chandler MD [address] [place] [address] PCP - General Internal Medicine 12/01/17 01/28/23 Jessy Andersen NP [address] [place] [address] PCP - General Nurse Practitioner 01/29/23 12/15/24 Jessy Andersen NP [address] [place] [address] PCP - General Nurse Practitioner 12/16/24 documented as of this encounter Additional Source Comments The information contained in this document represents components of the legal health record. It is not the complete legal health record.[facility]
--- OUTSIDE RECORDS SUMMARY | 2024-12-29 10:39 | XMS_ITS | Encounter Summary ---
Author Organization [facility] Address [address] [place] [address] [place] [address] Phone Care Team Providers Care Geodetic Advisor Name Role Phone Jcaquelyn Chandler MD Primary [facility] Provider [facility] GOVERNOR ASSEMBLER Primary Care Provider Jessy Andersen GOVERNOR ASSEMBLER Primary Care Provider Encounter Details Date Type Department Care Team (Latest Contact Info) Description 08/16/2018 Transcribe Orders [address] [place] [address] Seth Jeter MD [address] [place] [address] [email or web address] LLQ pain (Primary Dx); Nausea Social History [...] 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 Not on file documented as of this encounter Plan of Treatment Upcoming Encounters Date Type Department Care Team (Late st Contact Info) Description 09/28/2024 Procedure Pass [address] [place] [address] 01/02/2025 3:30 PM EST Office Visit [facility] Rehabilitation Services [address] [place] [address] Brooke Pressley MD 299 [facility] [address] [place] [address] Kim Braun, PT 380 [place] [address] 01/23/2025 2:45 PM EST Office Visit [facility] Gastroenterology Clinic 10 [place] [address] Unknown, Unknown, Nat Marquez PA-C 10 [facility] 2 [place] [address] 05/10/2025 9:15 AM EDT Appointment [address] [place] [address] Jessy Andersen, AMBIKA [address] [place] [address] documented as of this encounter Results * Creatinine/eGFR (08/16/2018 9:25 AM EDT) CREATININE 0.90 0.5 - 1.5 mg/dL [facility] EGFR 69 >59 mL/min/1.7 3m2 [facility] Comment:If patient is black, multiply result by 1.159. Estimated glomerular filtration rate calculated using the CKD-EPI equation. Blood 08/16/2018 9:25 AM EDT 08/16/2018 9:29 AM EDT us Seth Jeter MD LAB BLOOD ORDERABLES Final R esult [address] [address] * BUN (08/16/2018 9:25 AM EDT) BUN 13 6 - 19 mg/dL [facility] Blood 08/16/2018 9:25 AM EDT 08/16/2018 9:29 AM EDT us Seth Jeter MD LAB BLOOD ORDERABLES Final R esult Performing Organization Address City/[facility] Co de Phone Number [address] [address] documented in this encounter Visit Diagnoses Diagnosis LLQ pain- Primary Abdominal pain, left lower quadrant Nausea Nausea alone documented in this encounter Additional Health Concerns Infection Onset Date Last Indicated Resolved Time CoV-Risk 12/21/2021 12/21/2021 01/01/2022 1:22 AM EDT documented as of this encounter Care Teams Geodetic Advisor Relationship Specialty Start Date End Date Jacquelyn Chandler MD [address] [place] [phone] [email or web address] PCP - General Internal Medicine 12/01/17 01/28/23 Jessy Andersen NP [address] [place] [address] PCP - General Nurse Practitioner 01/29/23 12/15/24 Jessy Andersen NP [address] [place] [address] PCP - General Nurse Practitioner 12/16/24 documented as of this encounter Additional Source Comments The information contained in this document represents components of the legal health record. It is not the complete legal health record.[facility]
--- OUTSIDE RECORDS SUMMARY | 2024-12-29 10:39 | XMS_ITS | Encounter Summary ---
Author Organization [facility] Address [address] [place] [address] [place] [address] Phone Care Team Providers Care Criminal Researcher Name Role Phone Jacquelyn Chandler MD Primary Care Provider Jessy Andersen ANIMAL PATHOLOGY TEACHER Primary Care Provider Jessy Andersen ANIMAL PATHOLOGY TEACHER Primary Care Provider Encounter Details Date Type Department Care Team (Latest Contact Info) Description 03/08/2019 Transcribe Orders [address] [place] [address] Jacquelyn Chandler MD [address] [place] [address] Hyperlipidemia, unspecified hyperlipidemia type (Primary Dx) Social [...] 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 Not on file Not on file documented as of this encounter Plan of Treatment Upcoming Encounters Date Type Department Care Team (Late st Contact Info) Description 09/28/2024 Procedure Pass [address] [place] [address] 01/02/2025 3:30 PM EST Office Visit [facility] Rehabilitation Services [address] [place] [address] Brooke Pressley MD 299 [facility] [address] [place] [address] Kim Braun, PT 380 [place] [address] [email or web address] 01/23/2025 2:45 PM EST Office Visit [facility] Gastroenterology Clinic 10 [place] [address] Unknown, Unknown, Nat Marquez PA-C [address] [address] [email or web address] 05/10/2025 9:15 AM EDT Appointment [address] [place] [address] Jessy Andersen, AMBIKA [address] [place] [address] documented as of this encounter Results * (ABNORMAL) Lipid panel (03/08/2019 8:09 AM EST) HDL 44 mg/dL [facility] Comment: Interpretation <40 mg/dL: Low HDL cholesterol (major risk factor for CHD) Greater than or equal to 60 mg/dL: High HDL cholesterol ( negative risk factor for CHD) HDL - cholesterol is affected by a number of factors, e.g. smoking, excerise, hormones, sex and age. CHOLESTEROL 205 0 - 240 mg/dL [facility] TRIGLYCERIDES 220(H) 30 - 160 mg/dL [facility] LDL 117 50 - 129 mg/dL [facility] Comment: LDL levels in terms of risk for coronary heart disease: <100 mg/dL: Optimal 100-129 mg/dL: Near or above optimal 130-159 mg/dL: Borderline high 160-189 mg/dL: High >190 mg/dL: Very High CARDIAC RISK RATIO 4.7(H) 3.3 - 4.4 C [facility] Blood 03/08/2019 8:09 AM EST 03/08/2019 8:15 AM EST us Jacquelyn Chandler MD LAB BLOOD ORDERABLES Final R esult [address] [address] documented in this encounter Visit Diagnoses Diagnosis Hyperlipidemia, unspecified hyperlipidemia type- Primary documented in this encounter Additional Health Concerns Infection Onset Date Last Indicated Resolved Time CoV-Risk 12/21/2021 12/21/2021 01/01/2022 1:22 AM EDT documented as of this encounter Care Teams Criminal Researcher Relationship Specialty Start Date End Date Jacquelyn Chandler MD [address] [place] [address] PCP - General Internal Medicine 12/01/17 01/28/23 Jessy Andersen NP [address] [place] [address] PCP - General Nurse Practitioner 01/29/23 12/15/24 [facility] [address] [place] [address] PCP - General Nurse Practitioner 12/16/24 documented as of this encounter Additional Source Comments The information contained in this document represents components of the legal health record. It is not the complete legal health record.[facility]
--- OUTSIDE RECORDS SUMMARY | 2024-12-29 10:39 | XMS_ITS | Encounter Summary ---
Author Organization [facility] Address [address] [place] [address] [place] [address] Phone Care Team Providers Care Cardiac Rehabilitation Program Director Name Role Phone Jacquelyn Chandler MD Primary [facility] CHIEF ORDER DISPATCHER Primary Care Provider [facility] [place] CHIEF ORDER DISPATCHER Primary Care Provider Encounter Details Date Type Department Care Team (Late st Contact Info) Description 04/29/2018 Transcribe Orders [address] [place] [address] Jacquelyn Chandler MD [address] [place] [address] [email or web address] Central perforation of tympanic membrane of right [...] 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 Not on file Not on file documented as of this encounter Plan of Treatment Upcoming Encounters Date Type Department Care Team (Late st Contact Info) Description 09/28/2024 Procedure Pass [address] [place] [address] 01/02/2025 3:30 PM EST Office Visit [facility] Rehabilitation Services [address] [place] [address] Brooke Pressley MD [address] [place] [address] Kim Braun, PT 380 [place] [address] 01/23/2025 2:45 PM EST Office Visit [facility] Gastroenterology Clinic 10 [place] [address] Unknown, Unknown, Nat Marquez PA-C [address] [address] 05/10/2025 9:15 AM EDT Appointment [address] [place] [address] Jessy Andersen, CHIEF ORDER DISPATCHER [address] [address] documented as of this encounter Results * CBC and differential (04/29/2018 11:30 AM EST) WBC 5.51 3.40 - 11.20 K/uL [facility] RBC 4.80 3.80 - 4.80 M/uL [facility] HGB 13.1 12.0 - 15.0 g/dL [facility] HCT 40.2 36.0 - 46.0 % [facility] PLT 294 130 - 400 K/uL [facility] MCV 83.8 79.0 - 98.0 fL [facility] MCH 27.3 27.0 - 34.8 pg [facility] MCHC 32.6 31.5 - 36.0 g/dL [facility] RDW 13.1 10.8 - 14.6 % [facility] MPV 11.0 9.4 - 12.4 fl [facility] NRBC 0.00 0.00 /100 WBCs [facility] ABSOLUTE NRBC 0.00 0.00 K/uL [facility] DIFF METHOD Auto [facility] NEUTS 54.6 45.30 - 77.70 % [facility] LYMPHS 35.9 12.30 - 39.70 % [facility] MONOS 6.0 4.10 - 12.80 % [facility] EOS 2.4 0 - 7.2 % [facility] BASOS 0.9 0 - 2.80 % [facility] Granulocytes, immature (%) 0.2 0.0 - 0.9 % [facility] ABSOLUTE NEUTS 3.01 1.40 - 7.70 K/uL [facility] ABSOLUTE LYMPHS 1.98 0.60 - 3.20 K/uL [facility] ABSOLUTE MONOS 0.33 0.11 - 0.59 K/uL [facility] ABSOLUTE EOS 0.13 0.01 - 0.50 K/uL [facility] ABSOLUTE BASOS 0.05 0.00 - 0.08 K/uL [facility] Granulocytes, immature 0.01 0.00 - 0.05 K/uL [facility] Blood 04/29/2018 11:3 0 AM EST 04/29/2018 11:37 AM EST Jacquelyn Chandler MD LAB BLOOD ORDERABLES Final R esult [facility] [address] [place] [address] * Basic metabolic panel (04/29/2018 11:30 AM EST) SODIUM 137 133 - 146 mmol/L [facility] CHLORIDE 101 96 - 108 mmol/L [facility] POTASSIUM 4.6 3.3 - 5.1 mmol/L [facility] CO2 29 21 - 35 mmol/L [facility] BUN 17 6 - 19 mg/dL [facility] CREATININE 0.90 0.5 - 1.5 mg/dL [facility] GLUCOSE 88 70 - 99 mg/dL [facility] CALCIUM 9.6 8.4 - 10.3 mg/dL [facility] EGFR 69 >59 mL/min/1.7 3m2 [facility] Comment:If patient is black, multiply result by 1.159. Estimated glomerular filtration rate calculated using the CKD-EPI equation. ANION GAP 12 10 - 20 mmol/L [facility] Blood 04/29/2018 11:3 0 AM EST 04/29/2018 11:37 AM EST us Jacquelyn Chandler MD LAB BLOOD ORDERABLES Final R esult [facility] [address] [place] [address] documented in this encounter Visit Diagnoses Diagnosis Central perforation of tympanic membrane of right ear- Primary documented in this encounter Additional Health Concerns Infection Onset Date Last Indicated Resolved Time CoV-Risk 12/21/2021 12/21/2021 01/01/2022 1:22 AM EDT documented as of this encounter Care Teams Cardiac Rehabilitation Program Director Relationship Specialty Start Date End Date Jacquelyn Chandler MD [address] [place] [address] [email or web address] PCP - General Internal Medicine 12/01/17 01/28/23 Jessy Andersen NP [address] [place] [address] PCP - General Nurse Practitioner 01/29/23 12/15/24 Jessy Andersen NP [address] [place] [address] PCP - General Nurse Practitioner 12/16/24 documented as of this encounter Additional Source Comments The information contained in this document represents components of the legal health record. It is not the complete legal health record.[facility]
--- OUTSIDE RECORDS SUMMARY | 2024-12-29 10:40 | XMS_ITS | Encounter Summary ---
Author Organization [facility] Address [facility] [address] [place] [address] Phone Care Team Providers Care Cashier Parking Lot Name Role Phone Jacquelyn Chandler MD Primary Care Provider [phone] Jessy Andersen PARTS CLERK PLANT MAINTENANCE Primary Care Provider Jessy Andersen PARTS CLERK PLANT MAINTENANCE Primary Care Provider Encounter Details Date Type Department Care Team (Late st Contact Info) Description 09/01/2022 Procedure Pass [facility], [address] [place] [address] Social History Tobacco Use Types Packs/Day Years [...] Contact Info) Description 09/28/2024 Procedure Pass [address] [place] [address] 01/02/2025 3:30 PM EST Office Visit [facility] Rehabilitation Services [address] [place] [address] Brooke Pressley MD [address] [place] [address] Kim Braun, PT 380 [place] [address] 01/23/2025 2:45 PM EST Office Visit [facility] Gastroenterology Clinic 10 [place] [address] Unknown, Unknown, Nat Marquez PA-C [address] [address] 05/10/2025 9:15 AM EDT Appointment [address] [place] [address] [place], [place] AMBIKA Mary [address] [place] [address] documented as of this encounter Visit Diagnoses Not on filedocumented in this encounter Additional Health Concerns Assessment Noted Time PHQ-2 Depression Total Score: 0 09/02/19 10:16 AM EDT documented as of this encounter Care Teams Cashier Parking Lot Relationship Specialty Start Date End Date Jacquelyn Chandler MD [address] [place] [phone] [email or web address] PCP - General Internal Medicine 12/01/17 01/28/23 Jessy Andersen NP [address] [place] [address] PCP - General Nurse Practitioner 01/29/23 12/15/24 Jessy Andersen NP [address] [place] [address] PCP - General Nurse Practitioner 12/16/24 documented as of this encounter Additional Source Comments The information contained in this document represents components of the legal health record. It is not the complete legal health record.[facility]
--- OUTSIDE RECORDS SUMMARY | 2024-12-29 10:40 | XMS_ITS | Encounter Summary ---
Author Organization [facility] Address [address] [place] [address] [place] [address] Phone Care Team Providers Care Industrial Servicer Name Role Phone Jacquelyn Chandler MD Primary Care Provider [phone] Jessy Andersen WATER VALVE REPAIRER Primary Care Provider Jessy Andersen WATER VALVE REPAIRER Primary Care Provider Reason for Referral * MRI/CAT Scan - Closed Specialty Diagnoses / Procedures Referred By Gabriele canales Referred To Contact Radiology Diagnoses Lower abdominal pain Procedures CT Abdomen/Pelvis Seth Jeter MD Phone: tel: fax: [email or web address] Referral ID Status Reason Start Date Expiration Date Visits Re quested Visits Authorized [id number] Closed 09/26/2021 09/26/2022 1 1 Encounter Details Date Type Department Care Team (Latest Contact Info) Description 09/26/2021 Transcribe Orders Virtual Department [address] [place] [address] Seth Jeter MD [address] [place] [phone] Lower abdominal pain (Primary Dx) Social History [...] st Contact Info) Description 09/28/2024 Procedure Pass [address] [place] [address] 01/02/2025 3:30 PM EST Office Visit [facility] Rehabilitation Services [address] [place] [address] Brooke Pressley MD 299 [facility] [address] [place] [address] Kim Braun, PT 380 [place] [address] 01/23/2025 2:45 PM EST Office Visit [facility] [address] [place] [address] Unknown, Unknown, Nat Marquez PA-C [address] [address] 05/10/2025 9:15 AM EDT Appointment [address] [place] [address] Jessy Andersen, AMBIKA [address] [place] [address] documented as of this encounter Results * [...] as of this encounter Care Teams Industrial Servicer Relationship Specialty Start Date End Date Jacquelyn Chandler MD [address] [place] [address] PCP - General Internal Medicine 12/01/17 01/28/23 Jessy Andersen NP [address] [place] [address] PCP - General Nurse Practitioner 01/29/23 12/15/24 Jessy Andersen NP [address] [place] [phone] PCP - General Nurse Practitioner 12/16/24 documented as of this encounter Additional Source Comments The information contained in this document represents components of the legal health record. It is not the complete legal health record.[facility]
--- OUTSIDE RECORDS SUMMARY | 2024-12-29 10:40 | XMS_ITS | Encounter Summary ---
Author Organization [facility] Address [address] [facility] [address] [place] [address] Phone Care Team Providers Care Operational Communication Chief Name Role Phone Jessy Andersen TAPE LIBRARIAN Primary Care Provider Jessy Andersen TAPE LIBRARIAN Primary Care Provider Encounter Details Date Type Department Care Team (Late st Contact Info) Description 03/20/2023 Transcribe Orders Virtual Department 30 [place] [address] Jessy Andersen NP [address] [place] [address] Rheumatoid arthritis with positive rheumatoid factor, involving [...] st Contact Info) Description 09/28/2024 Procedure Pass [facility] - [address] [place] [address] 01/02/2025 3:30 PM EST Office Visit [facility] Rehabilitation Services [address] [place] [address] Brooke Pressley MD [address] [place] [address] [address] [place] [address] Kim Braun, PT [address] [place] [address] 01/23/2025 2:45 PM EST Office Visit [facility] Gastroenterology Clinic 10 [place] [address] Unknown, Unknown, Nta Marquez PA-C [address] [address] 05/10/2025 9:15 AM EDT Appointment [facility] - [address] [place] [address] Jessy Andersen NP [address] [place] [address] documented as of this encounter Visit Diagnoses Diagnosis Rheumatoid arthritis with positive rheumatoid factor, involving unspecified site- Primary Chronic pain of both knees documented in this encounter Additional Health Concerns Assessment Noted Time PHQ-2 Depression Total Score: 0 09/02/19 10:16 AM EDT documented as of this encounter Care Teams Operational Communication Chief Relationship Specialty Start Date End Date Jessy Andersen NP PCP - General Nurse Practitioner 01/29/23 12/15/24 Jessy Andersen NP [address] [facility] [place] [address] PCP - General Nurse Practitioner 12/16/24 documented as of this encounter Additional Source Comments The information contained in this document represents components of the legal health record. It is not the complete legal health record.[facility]
--- OUTSIDE RECORDS SUMMARY | 2024-12-29 10:40 | XMS_ITS | Encounter Summary ---
Author Organization [facility] Address [address] [place] [address] [place] [address] Phone Care Team Providers Care Technical Sales Representative Name Role Phone Jacquelyn Chandler MD Primary Care Provider Jessy Andersen CAP MACHINE OPERATOR Primary Care Provider Jessy Andersen CAP MACHINE OPERATOR Primary Care Provider Encounter Details Date Type Department Care Team (Late st Contact Info) Description 09/12/2020 Procedure Pass [facility] Echo Lab [address] [place] [address] Social History Tobacco Use Types Packs/Day Years [...] Contact Info) Description 09/28/2024 Procedure Pass [address] [place] [address] 01/02/2025 3:30 PM EST Office Visit [facility] Rehabilitation Services [address] [place] [address] Brooke Pressley MD [address] [facility] [address] [place] [address] Kim Braun, PT 380 [place] [address] 01/23/2025 2:45 PM EST Office Visit [facility] Gastroenterology Clinic 10 [place] [address] Unknown, Unknown, Nat Marquez PA-C [address] [address] 05/10/2025 9:15 AM EDT Appointment [address] [place] [address] Jessy Andersen CAP MACHINE OPERATOR [address] [place] [address] documented as of this encounter Visit Diagnoses Not on filedocumented in this encounter Additional Health Concerns Infection Onset Date Last Indicated Resolved Time CoV-Risk 12/21/2021 12/21/2021 01/01/2022 1:22 AM EDT documented as of this encounter Care Teams Technical Sales Representative Relationship Specialty Start Date End Date Jacquelyn Chandler MD [address] [place] [address] 1 [place] [address] PCP - General Internal Medicine 12/01/17 01/28/23 Jessy Andersen NP [address] [place] [address] PCP - General Nurse Practitioner 01/29/23 12/15/24 Jessy Andersen NP 70 [place] [address] PCP - General Nurse Practitioner 12/16/24 documented as of this encounter Additional Source Comments The information contained in this document represents components of the legal health record. It is not the complete legal health record.[facility]
--- OUTSIDE RECORDS SUMMARY | 2024-12-29 10:40 | XMS_ITS | Encounter Summary ---
Author Organization [facility] Address [address] [place] [address] Drive [address] [place] [address] Phone Care Team Providers Care Paper Bag Inspector Name Role Phone Jessy Andersen FIRMWARE SOFTWARE VERIFICATION ENGINEER Primary Care Provider Jessy Andersen FIRMWARE SOFTWARE VERIFICATION ENGINEER Primary Care Provider Encounter Details Date Type Department Care Team (Late st Contact Info) Description 01/29/2023 Procedure Pass [facility] - [address] [place] [address] Social History Tobacco Use Types Packs/Day Years [...] st Contact Info) Description 09/28/2024 Procedure Pass [address] [place] [address] 01/02/2025 3:30 PM EST Office Visit [facility] Rehabilitation Services [address] [place] [address] Brooke Pressley MD [address] [place] [address] 119 [place] [address] Kim Braun, PT 380 [place] [address] 01/23/2025 2:45 PM EST Office Visit [facility]ology [facility] [address] [place] [address] Unknown, Unknown, Nat Marquez PA-C [address] [place] [address] 05/10/2025 9:15 AM EDT Appointment [address] [place] [address] Jessy Andersen NP [address] [place] [address] documented as of this encounter Visit Diagnoses Not on filedocumented in this encounter Additional Health Concerns Assessment Noted Time PHQ-2 Depression Total Score: 0 09/02/19 10:16 AM EDT documented as of this encounter Care Teams Paper Bag Inspector Relationship Specialty Start Date End Date Jessy Andersen NP PCP - General Nurse Practitioner 01/29/23 12/15/24 Jessy Andersen NP [address] [place] [address] PCP - General Nurse Practitioner 12/16/24 documented as of this encounter Additional Source Comments The information contained in this document represents components of the legal health record. It is not the complete legal health record.[facility]
--- OUTSIDE RECORDS SUMMARY | 2024-12-29 10:40 | XMS_ITS | Clinical Summary ---
Author Organization [employer] Address [address] [facility] 7t [place] [address] Care Team Providers Care Housekeeping Laundry Worker Name Role Phone Nathaly Jessy AUSTIN Primary Care Provider [phone] Allergies Active Allergy Reactions Criticality Noted Date [...] tabletIndications :TIA (transient ischemic attack),Atheroscl erosis of [place] coronary artery of [place] heart without angina pectoris TAKE 1 TABLET [...] complication 04/2021 Atherosclerosis of coronary artery of [place] hea rt 08/01/2021 Hyperlipidemia 08/01/2021 Overview (11/10/2022): [...] Description 12/22/2024 11:40 AM EDT Office Visit [facility] 70 [place] [address] [place], [place] [facility] Acute non-recurrent sinusitis, unspecified location (Primary Dx); Hordeolum externum of right lower eyelid; Moderate persistent asthma with acute exacerbation 12/16/2024 Refill [facility] [address] [place] [address] [place], [place] [facility] Mild persistent asthma without complication (Primary Dx) 11/03/2024 Orders Only [facility] [address] [place] [address] [place], [place] [facility] 10/17/2024 Refill [facility] [address] [place] [address] [place], [place] [facility] Fibromyalgia 10/10/[address] [address] [facility] Results 10/05/2024 Results Follow-Up [facility] 70 [place] [address] [place], [place], [facility] XR bone density w SPECT lumbar 10/03/2024 Results Follow-Up [facility] [address] [place] [address] [place], [place], [facility] US Abdomen Limited, Helicobacter pylori, Urea Breath Test [id number] 10/03/2024 Telephone [facility] 70 [place] [address] [place], [place], [facility] Results from Last 3 Months Immunizations Immunization [...] the past 12 months, has t he [employer], gas, oil or water company threatened to [...] Description 03/24/2025 11:40 AM EST Office Visit [facility] [address] [place] [address] [facility] 70 [place] [address] Health Maintenance Due Date Last Done Comments [...] Blood Venous blood specimen / Unknown Result [facility] LAB BLOOD ORDERABLES Ana l Result * CBC auto differential (11/02/2024 2:06 PM EDT) Blood Venous blood specimen / Unknown Result [facility] LAB BLOOD ORDERABLES Ana l Result * Referral to Pulmonology (11/02/2024) [facility] OUTPATIENT REFERRAL ORDER GABBI Final Result * XR bone density w SPECT lumbar (10/04/2024) Anatomical Region Laterality Modality L-spine N/A Radiographic Yolie ging Result [facility] IMG DXA PROCEDURES Final Result * Helicobacter pylori, Urea Breath Test [id number] (10/04/2024) Breath (Breath) Result [facility] LAB BODY FLUIDS AND STOOL S ORDERABLES Final Result Performing Organization Address [facility] Co de Phone Number EXTERNAL LAB * US Abdomen Limited (10/03/2024) Anatomical Region Laterality Modality Abdomen Ultrasound [facility] IMG US PROCEDURES Final R esult * Lipid Panel, Standard (12/16/2023) Blood Venous blood specimen / Unknown [facility] LAB BLOOD ORDERABLES Ana l Result Performing Organization Address [facility] Co de Phone Number EXTERNAL LAB * Mammography (02/03/2023) Anatomical Region Laterality Modality Other [facility] Edited Result - Final * Colonoscopy (08/12/2018) Colonoscopy Normal Normal [facility] HEALTH MAINTENANCE Final Result from Last 3 Months or Most Recently Relevant to Health Maintenance Insurance [facility] D[facility] [employer]PLETE [facility] [employer] Care Teams Housekeeping Laundry Worker Relationship Specialty Start Date End Date [facility] [address] [place] [address] PCP - General Family Medicine 10/01/22
--- OUTSIDE RECORDS SUMMARY | 2024-12-29 10:40 | XMS_ITS | Encounter Summary ---
Author Organization [facility] Address [address] [place] [address] Phone Care Team Providers Care Rn Procedures Name Role Phone Jessy Andersen PARKS RECREATION COORDINATOR Primary Care Provider Jessy Andersen PARKS RECREATION COORDINATOR Primary Care Provider Encounter Details Date Type Department Care Team (Late st Contact Info) Description 04/09/2023 Ancillary Orders Virtual Department 30 [place] [address] Jessy Andersen NP [address] [place] [address] Rheumatoid arthritis with positive rheumatoid factor, involving [...] 09/28/2024 Procedure Pass [facility] - [address] [place] [address] 01/02/2025 3:30 PM EST Office Visit [facility] Rehabilitation Services [address] [place] [address] Brooke Pressley MD [address] [place] [address] [address] [place] [address] Kim Braun, PT 380 [place] [address] 01/23/2025 2:45 PM EST Office Visit [facility] Gastroenterology Clinic 10 [place] [address] Unknown, Unknown, Nat Marquez PA-C [address] [address] 05/10/2025 9:15 AM EDT Appointment [address] [place] [address] Jessy Andersen, AMBIKA [address] [place] [address] documented as of this encounter Results * [...] clinician's provided indication for this examination in [facility]:Outside Radiology Order; Chronic Pain of Both [...] bilaterally, 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 Jessy Andersen PARKS RECREATION COORDINATOR IMG XR LOWER EXTREMITY Final Result documented [...] documented as of this encounter Care Teams Rn Procedures Relationship Specialty Start Date End Date Jessy Andersen NP PCP - General Nurse Practitioner 01/29/23 12/15/24 Jessy Andersen NP 70 [place] [address] PCP - General Nurse Practitioner 12/16/24 documented as of this encounter Additional Source Comments The information contained in this document represents components of the legal health record. It is not the complete legal health record.[facility]
--- OUTSIDE RECORDS SUMMARY | 2024-12-29 10:40 | XMS_ITS | Encounter Summary ---
Author Organization [facility] Address [address] [place] [address] Phone Care Team Providers Care Finance Associate Name Role Phone Jacquelyn Chandler MD Primary Care Provider [phone] Jessy Andersen REGIONAL PROPERTY MANAGER Primary Care Provider Jessy Andersen REGIONAL PROPERTY MANAGER Primary Care Provider Encounter Details Date Type Department Care Team (Late st Contact Info) Description 08/28/2022 Procedure Pass [facility] - [address] [address] Social History Tobacco Use Types Packs/Day Years [...] 9:58 PM EDT Zarina Noriega RN * [place] Suicide Severity Rating Scale (Screener/Recent Self-Report) Question [...] Procedure Pass [facility] - [address] [place] [address] 01/02/2025 3:30 PM EST Office Visit [facility] Rehabilitation Services 380 [place] [address] Brooke Pressley MD [address] [place] [address] [address] [place] [address] Kim Braun, PT 380 [place] [address] 01/23/2025 2:45 PM EST Office Visit [facility] Gastroenterology Clinic 10 [place] [address] Unknown, Unknown, Nat Marquez, PA-C [address] [address] 05/10/2025 9:15 AM EDT Appointment [address] [place] [address] Jessy Andersen REGIONAL PROPERTY MANAGER 73 [place] [address] documented as of this encounter Visit Diagnoses Not on filedocumented in this encounter Additional Health Concerns Assessment Noted Time PHQ-2 Depression Total Score: 0 07/30/19 22 10:09 AM EDT documented as of this encounter Care Teams Finance Associate Relationship Specialty Start Date End Date Jacquelyn Chandler MD [address] [place] [address] PCP - General Internal Medicine 12/01/17 01/28/23 Jessy Andersen NP [address] [address] PCP - General Nurse Practitioner 01/29/23 12/15/24 Jessy Andersen NP [address] [place] [address] PCP - General Nurse Practitioner 12/16/24 documented as of this encounter Additional Source Comments The information contained in this document represents components of the legal health record. It is not the complete legal health record.[facility]
--- OUTSIDE RECORDS SUMMARY | 2024-12-29 10:40 | XMS_ITS | Encounter Summary ---
Author Organization [facility] Address [address] [place] [address] [place] [address] Phone Care Team Providers Care Tax Professional Name Role Phone Jacquelyn Chandler MD Primary Care Provider [phone] Jessy Andersen CST Primary Care Provider Jessy Andersen CST Primary Care Provider Encounter Details Date Type Department Care Team (Latest Contact Info) Description 11/06/2020 Transcribe Orders [address] [place] [address] Nat Tam PA [address] [place] [address] Gastroesophageal reflux disease with esophagitis, unspecified whether [...] Contact Info) Description 09/28/2024 Procedure Pass [address] [place] [address] 01/02/2025 3:30 PM EST Office Visit [facility] Rehabilitation Services [address] [place] [address] Brooke Pressley MD 299 [facility] [address] [place] [address] Kim Braun, PT 380 [place] [address] 01/23/2025 2:45 PM EST Office Visit [facility] Gastroenterology Clinic 10 [place] [address] Unknown, Unknown, Nat Marquez PA-C [address] [address] 05/10/2025 9:15 AM EDT Appointment [address] [place] [address] Jessy Andersen, AMBIKA [address] [place] [address] documented as of this encounter Results * CBC and differential (11/06/2020 10:12 AM EDT) WBC 5.70 4.00 - 11.00 K/uL [facility] RBC 4.52 3.72 - 5.30 M/uL [facility] HGB 12.7 11.4 - 15.9 g/dL [facility] HCT 38.2 34.2 - 46.8 % [facility] PLT 268 140 - 430 K/uL [facility] MCV 84.5 78.0 - 97.0 fL [facility] MCH 28.1 25.0 - 33.0 pg [facility] MCHC 33.2 32.0 - 36.0 g/dL [facility] RDW 13.2 11.0 - 16.0 % [facility] MPV 11.6 8.4 - 12.8 fl [facility] NRBC 0.00 0 /100 WBCs [facility] ABSOLUTE NRBC 0.00 0 K/uL [facility] DIFF METHOD Auto [facility] NEUTS 53.7 43.0 - 75.0 % [facility] LYMPHS 36.7 18.2 - 47.4 % [facility] MONOS 6.7 4.00 - 11.00 % [facility] EOS 1.6 0.0 - 8.0 % [facility] BASOS 0.9 0.0 - 2.0 % [facility] Granulocytes, immature (%) 0.4 0.0 - 0.9 % [facility] ABSOLUTE NEUTS 3.07 1.80 - 7.70 K/uL [facility] ABSOLUTE LYMPHS 2.09 1.00 - 3.10 K/uL [facility] ABSOLUTE MONOS 0.38 0.20 - 0.80 K/uL [facility] ABSOLUTE EOS 0.09 0.00 - 0.80 K/uL [facility] ABSOLUTE BASOS 0.05 0.00 - 0.09 K/uL [facility] Granulocytes, immature 0.02 0.00 - 0.05 K/uL [facility] Blood 11/06/2020 10:1 2 AM EDT 11/06/2020 10:15 AM EDT us Nat [facility] LAB BLOOD ORDERABLES Final Result [facility] 30 [place] [address] documented in this encounter Visit Diagnoses Diagnosis Gastroesophageal reflux disease with esophagitis, unspecified whether hemorrhage- Primary documented in this encounter Additional Health Concerns Infection Onset Date Last Indicated Resolved Time CoV-Risk 12/21/2021 12/21/2021 01/01/2022 1:22 AM EDT documented as of this encounter Care Teams Tax Professional Relationship Specialty Start Date End Date Jacquelyn Chandler MD [address] [place] [address] [email or web address] PCP - General Internal Medicine 12/01/17 01/28/23 Jessy Andersen NP [address] [place] [address] PCP - General Nurse Practitioner 01/29/23 12/15/24 Jessy Andersen NP [address] [place] [address] PCP - General Nurse Practitioner 12/16/24 documented as of this encounter Additional Source Comments The information contained in this document represents components of the legal health record. It is not the complete legal health record.[facility]
--- OUTSIDE RECORDS SUMMARY | 2024-12-29 10:40 | XMS_ITS | Encounter Summary ---
Author Organization [facility] Address [address] [place] [address] Phone Care Team Providers Care Cap Cutter Name Role Phone Jacquelyn Chandler MD Primary Care Provider Jessy Andersen WOOD BUCKER Primary Care Provider Jessy Andersen WOOD BUCKER Primary Care Provider Encounter Details Date Type Department Care Team (Latest Contact Info) Description 11/15/2020 Transcribe Orders Virtual Department 30 [place] [address] Seth Jeter MD [address] [place] [address] [email or web address] Encounter for laboratory testing [...] Contact Info) Description 09/28/2024 Procedure Pass [address] [place] [address] 01/02/2025 3:30 PM EST Office Visit [facility] Rehabilitation Services [address] [place] [address] Brooke Pressley MD 299 [facility] [address] [place] [address] Kim Braun, PT [address] [place] [address] 01/23/2025 2:45 PM EST Office Visit [facility] Gastroenterology Clinic 10 [place] [address] Unknown, Unknown, Nat Marquez PA-C [address] [address] 05/10/2025 9:15 AM EDT Appointment [place] [address] [place] [address] Jessy Andersen, AMBIKA [address] [place] [address] documented as of this encounter Results * COVID-19 PCR Order (11/19/2020 10:06 AM EDT) COVID-19 Comment [id number] [facility] COVID Testing Status Sent to [facility] Other 11/19/2020 10:0 6 AM EDT 11/19/2020 5:03 PM EDT us Seth Jeter MD BODY FLUIDS AND STOOLS ORDER GABBI Final Result [facility] 30 [place] [address] documented in this encounter Visit Diagnoses Diagnosis Encounter for laboratory testing for COVID-19 virus- Primary documented in this encounter Additional Health Concerns Infection Onset Date Last Indicated Resolved Time CoV-Risk 12/21/2021 12/21/2021 01/01/2022 1:22 AM EDT documented as of this encounter Care Teams Cap Cutter Relationship Specialty Start Date End Date Jacquelyn Chandler MD [address] [place] [address] [email or web address] PCP - General Internal Medicine 12/01/17 01/28/23 Jessy Andersen NP [address] [place] [address] PCP - General Nurse Practitioner 01/29/23 12/15/24 [facility] [address] [place] [address] PCP - General Nurse Practitioner 12/16/24 documented as of this encounter Additional Source Comments The information contained in this document represents components of the legal health record. It is not the complete legal health record.[facility]
--- OUTSIDE RECORDS SUMMARY | 2024-12-29 10:40 | XMS_ITS | Encounter Summary ---
Author Organization [facility] Address [address] [place] [address] Phone Care Team Providers Care Waterproof Coating Machine Tender Name Role Phone Jacquelyn Chandler MD Primary Care Provider Jessy Andersen MUSIC INTERN Primary Care Provider [facility] MUSIC INTERN Primary Care Provider Reason for Referral * Outpatient Procedure - Closed Specialty Diagnoses / Procedures Referred By Gabriele canales Referred To Contact Radiology Diagnoses TIA (transient ischemic attack) Procedures Adult Echo TTE Taqueria Aj MD [address] [place] [address], [address] [place] [address] Phone: tel: fax: [email or web address] Referral ID Status Reason Start Date Expiration Date Visits Re quested Visits Authorized [id number] Closed 09/22/2022 1 1 Encounter Details Date Type Department Care Team (Latest Contact Info) Description 09/22/2022 Transcribe Orders [facility] Department 30 [place], [place] [id number] Taqueria Aj MD [address] [place] [address], [address] [place] [address] [email or web address] TIA (transient ischemic attack) (Primary Dx) [...] Procedure Pass [facility] - [address] [place] [address] 01/02/2025 3:30 PM EST Office Visit [facility] Rehabilitation Services [address] [place] [address] Brooke Pressley MD [address] [facility] [address] [place] [address] Kim Braun, PT 380 [place] [address] [email or web address] 01/23/2025 2:45 PM EST Office Visit [facility] Gastroenterology Clinic 10 [place] [address] Unknown, Unknown, Nat Marquez PA-C 10 [facility] 2 [place], [place] [id number] [email or web address] 05/10/2025 9:15 AM EDT Appointment [facility] - [address] [place] [address] Jessy Andersen, MUSIC INTERN [address] [place] [address] documented as of this encounter Results * [...] documented as of this encounter Care Teams Waterproof Coating Machine Tender Relationship Specialty Start Date End Date Jacquelyn Chandler MD [address] [place] [address] PCP - General Internal Medicine 12/01/17 01/28/23 Jessy Andersen NP [address] [place] [address] PCP - General Nurse Practitioner 01/29/23 12/15/24 Jessy Andersen NP [address] [place] [address] PCP - General Nurse Practitioner 12/16/24 documented as of this encounter Additional Source Comments The information contained in this document represents components of the legal health record. It is not the complete legal health record.[facility]
--- OUTSIDE RECORDS SUMMARY | 2024-12-29 10:40 | XMS_ITS | Encounter Summary ---
Author Organization [facility] Address [address] [place] [address] Phone Care Team Providers Care Help Desk Representative Name Role Phone Jacquelyn Chandler MD Primary Care Provider Jessy Andersen CHICK GRADER Primary Care Provider Jessy Andersen CHICK GRADER Primary Care Provider Encounter Details Date Type Department Care Team (Late st Contact Info) Description 09/22/2022 Procedure Pass [facility] [address] [place] [address] Social History Tobacco Use Types Packs/Day Years [...] Contact Info) Description 09/28/2024 Procedure Pass [address] [place] [address] 01/02/2025 3:30 PM EST Office Visit [facility] Rehabilitation Services [address] [place] [address] Brooke Pressley MD [address] [place] [address] Kim Braun, PT 380 [place] [address] 01/23/2025 2:45 PM EST Office Visit [facility] [address] [place] [address] Unknown, Unknown, Nat Marquez PA-C [address] [place] [address] 05/10/2025 9:15 AM EDT Appointment [address] [place] [address] Jessy Andersen NP [address] [place] [address] documented as of this encounter Visit Diagnoses Not on filedocumented in this encounter Additional Health Concerns Assessment Noted Time PHQ-2 Depression Total Score: 0 09/02/19 10:16 AM EDT documented as of this encounter Care Teams Help Desk Representative Relationship Specialty Start Date End Date Jacquelyn Chandler MD [address] [place] [address] [email or web address] PCP - General Internal Medicine 12/01/17 01/28/23 Jessy Andersen NP [address] [place] [address] PCP - General Nurse Practitioner 01/29/23 12/15/24 Jessy Andersen NP [address] [place] [address] PCP - General Nurse Practitioner 12/16/24 documented as of this encounter Additional Source Comments The information contained in this document represents components of the legal health record. It is not the complete legal health record.[facility]
--- OUTSIDE RECORDS SUMMARY | 2024-12-29 10:40 | XMS_ITS | Encounter Summary ---
Author Organization [facility] Address [address] [place] [address] [place] [address] Phone Care Team Providers Care Psychiatric Nurse Name Role Phone Jacquelyn Chandler MD Primary Care Provider Jessy Andersen ACROBATIC DANCER Primary Care Provider Jessy Andersen ACROBATIC DANCER Primary Care Provider Encounter Details Date Type Department Care Team (Latest Contact Info) Description 10/09/2020 Transcribe Orders [address] [place] [address] Jacquelyn Chandler MD [address] [place] [phone] Vitamin D deficiency, unspecified (Primary Dx); Hyperlipidemia, [...] Contact Info) Description 09/28/2024 Procedure Pass [address] [place] [address] 01/02/2025 3:30 PM EST Office Visit [facility] Rehabilitation Services [address] [place] [address] Brooke Pressley MD 299 [facility] [address] [place] [address] Kim Braun, PT 380 [place] [address] 01/23/2025 2:45 PM EST Office Visit [facility] Gastroenterology [facility] 10 [place] [address] Unknown, Unknown, Nat Marquez PA-C [address] [address] 05/10/2025 9:15 AM EDT Appointment [address] [place] [address] Jessy Andersen, ACROBATIC DANCER [address] [place] [address] documented as of this encounter Results * (ABNORMAL) Lipid panel (10/09/2020 10:28 AM EDT) HDL 49 mg/dL [facility] Comment: Interpretation <40 mg/dL: Low HDL cholesterol (major risk factor for CHD) Greater than or equal to 60 mg/dL: High HDL cholesterol ( negative risk factor for CHD) HDL - cholesterol is affected by a number of factors, e.g. smoking, excerise, hormones, sex and age. CHOLESTEROL 182 0 - 240 mg/dL [facility] TRIGLYCERIDES 164(H) 30 - 160 mg/dL [facility] LDL 100 50 - 129 mg/dL [facility] Comment: LDL levels in terms of risk for coronary heart disease: <100 mg/dL: Optimal 100-129 mg/dL: Near or above optimal 130-159 mg/dL: Borderline high 160-189 mg/dL: High >190 mg/dL: Very High CARDIAC RISK RATIO 3.7 3.3 - 4.4 C [facility] Blood 10/09/2020 10:2 8 AM EDT 10/09/2020 10:32 AM EDT us Jacquelyn Chandler MD LAB BLOOD ORDERABLES Final R esult Performing Organization Address City/[facility]/ZIP Co de Phone Number [address] [address] * (ABNORMAL) 25-OH vitamin D (10/09/2020 10:28 AM EDT) 25 OH VIT D (TOTAL) 28(L) 30 - 60 ng/mL [facility] Blood 10/09/2020 10:2 8 AM EDT 10/09/2020 10:32 AM EDT us Jacquelyn Chandler MD LAB BLOOD ORDERABLES Final R esult Performing Organization Address City/[facility]/ZIP Co de Phone Number [address] [address] documented in this encounter Visit Diagnoses Diagnosis Vitamin D deficiency, unspecified- Primary Hyperlipidemia, unspecified hyperlipidemia type documented in this encounter Additional Health Concerns Infection Onset Date Last Indicated Resolved Time CoV-Risk 12/21/2021 12/21/2021 01/01/2022 1:22 AM EDT documented as of this encounter Care Teams Psychiatric Nurse Relationship Specialty Start Date End Date Jacquelyn Chandler MD [address] [place] [address] [email or web address] PCP - General Internal Medicine 12/01/17 01/28/23 Jessy Andersen NP [address] [place] [address] PCP - General Nurse Practitioner 01/29/23 12/15/24 Jessy Andersen NP [address] [place] [address] PCP - General Nurse Practitioner 12/16/24 documented as of this encounter Additional Source Comments The information contained in this document represents components of the legal health record. It is not the complete legal health record.[facility]
--- OUTSIDE RECORDS SUMMARY | 2024-12-29 10:40 | XMS_ITS | Encounter Summary ---
Author Organization [facility] Address [address] [place] [address] [place] [address] Phone Care Team Providers Care Heavy Mobile Equipment Operator Name Role Phone Jacquelyn Chandler MD Primary Care Provider Jessy Andersen CUPOLA HOIST OPERATOR Primary Care Provider Jessy Andersen CUPOLA HOIST OPERATOR Primary Care Provider Encounter Details Date Type Department Care Team (Late st Contact Info) Description 09/17/2020 Procedure Pass [facility] - [address] [place] [address] Social History Tobacco Use Types Packs/Day Years [...] Contact Info) Description 09/28/2024 Procedure Pass [address] [place] [address] 01/02/2025 3:30 PM EST Office Visit [facility] Rehabilitation Services 380 [place] [address] Brooke Pressley MD 299 [facility] [address] [place] [address] Kim Braun, PT 380 [place] [address] 01/23/2025 2:45 PM EST Office Visit [facility] Gastroenterology Clinic 10 [place] [address] Unknown, Unknown, Nat Marquez PA-C [address] [address] 05/10/2025 9:15 AM EDT Appointment [address] [place] [address] Jessy Andersen NP 73 [place] [address] documented as of this encounter Visit Diagnoses Not on filedocumented in this encounter Additional Health Concerns Infection Onset Date Last Indicated Resolved Time CoV-Risk 12/21/2021 12/21/2021 01/01/2022 1:22 AM EDT documented as of this encounter Care Teams Heavy Mobile Equipment Operator Relationship Specialty Start Date End Date Jacquelyn Chandler MD 35 [facility] 1 [place] [address] PCP - General Internal Medicine 12/01/17 01/28/23 Jessy Andersen NP [address] [place] [address] 1 [place] [address] PCP - General Nurse Practitioner 01/29/23 12/15/24 Jessy Andersen NP 70 [place] [address] PCP - General Nurse Practitioner 12/16/24 documented as of this encounter Additional Source Comments The information contained in this document represents components of the legal health record. It is not the complete legal health record.[facility]
--- OUTSIDE RECORDS SUMMARY | 2024-12-29 10:40 | XMS_ITS | Encounter Summary ---
Author Organization [employer] Address [address] [place] [address] 7t [place] [address] Care Team Providers Care Pit Hand Name Role Phone [facility] Primary Care Provider [phone] Encounter Details Date Type Department Care Team (Late st Contact Info) Description 08/12/2023 Orders Only Gerhard [facility] 70 [place] [address] [facility] Jessy [facility] [address] [place] [address] Rheumatoid arthritis with positive rheumatoid factor, involving unspecified site ([facility]) Social History Tobacco Use Types Packs/Day Years [...] 03/24/2025 11:40 AM EST Office Visit Gerhard [facility] [address] [place] [address] [place], [place] [facility] [address] [place] [address] documented as of this encounter Procedures Procedure Name Priority Date/Time Associated Diagnosis Comments AMB REFERRAL TO RHEUMATOLOGY Routine 05/29/2023 Rheumatoid arthritis with positive rheumatoid factor, involving unspecified site (CMS/[facility]) documented in this encounter Results * Referral to Rheumatology (05/29/2023) [facility] OUTPATIENT REFERRAL ORDER GABBI Final Result documented in this encounter Visit Diagnoses Diagnosis Rheumatoid arthritis with positive rheumatoid factor, involving unspecified site (CMS/HCC) ([facility]) documented in this encounter Care Teams Pit Hand Relationship Specialty Start Date End Date [facility] [address] [place] [address] PCP - General Family Medicine 10/01/22 documented as of this encounter
--- OUTSIDE RECORDS SUMMARY | 2024-12-29 10:40 | XMS_ITS | Encounter Summary ---
Author Organization [facility] Address [address] [place] [address] [place] [address] Phone Care Team Providers Care Diving Coach Name Role Phone Jacquelyn Chandler MD Primary Care Provider Jessy Andersen BORING AND FILLING MACHINE OPERATOR Primary Care Provider Jessy Andersen BORING AND FILLING MACHINE OPERATOR Primary Care Provider Encounter Details Date Type Department Care Team (Late st Contact Info) Description 08/14/2021 Procedure Pass [facility] - [address] [place] [address] Social History Tobacco Use Types Packs/Day Years [...] Contact Info) Description 09/28/2024 Procedure Pass [address] [place] [address] 01/02/2025 3:30 PM EST Office Visit [facility] Rehabilitation Services 380 [place] [address] Brooke Pressley MD 299 [facility] [address] [place] [address] Kim Braun, PT 380 [place] [address] 01/23/2025 2:45 PM EST Office Visit [facility] 10 [place] [address] Unknown, Unknown, Nat Marquez PA-C [address] [address] 05/10/2025 9:15 AM EDT Appointment [address] [place] [address] Jessy Andersen NP 73 [place] [address] documented as of this encounter Visit Diagnoses Not on filedocumented in this encounter Additional Health Concerns Infection Onset Date Last Indicated Resolved Time CoV-Risk 12/21/2021 12/21/2021 01/01/2022 1:22 AM EDT Assessment Noted Time PHQ-2 Depression Total Score: 0 07/30/19 10:09 AM EDT documented as of this encounter Care Teams Diving Coach Relationship Specialty Start Date End Date Jacquelyn Chandler MD [address] [place] [address] PCP - General Internal Medicine 12/01/17 01/28/23 Jessy Andersen NP [address] [place] [address] PCP - General Nurse Practitioner 01/29/23 12/15/24 Jessy Andersen NP 70 [place] [address] PCP - General Nurse Practitioner 12/16/24 documented as of this encounter Additional Source Comments The information contained in this document represents components of the legal health record. It is not the complete legal health record.[facility]
--- OUTSIDE RECORDS SUMMARY | 2024-12-29 10:40 | XMS_ITS | Encounter Summary ---
Author Organization [facility] Address [address] [place] [address] [place] [address] Phone Care Team Providers Care Human Resources Director Name Role Phone Jacquelyn Chandler MD Primary Care Provider Jessy Andersen TRESTLE MAINTERNANCE LABORER Primary Care Provider Jessy Andersen TRESTLE MAINTERNANCE LABORER Primary Care Provider Encounter Details Date Type Department Care Team (Late st Contact Info) Description 08/01/2021 Procedure Pass [facility] - [address] [place] [address] Social History Tobacco Use Types Packs/Day Years [...] Contact Info) Description 09/28/2024 Procedure Pass [address] [place] [address] 01/02/2025 3:30 PM EST Office Visit [facility] Rehabilitation Services [address] [place] [address] Brooke Pressley MD 299 [facility] [address] [place] [address] Kim Braun, PT 380 [place] [address] 01/23/2025 2:45 PM EST Office Visit [facility] Gastroenterology Clinic 10 [place] [address] Unknown, Unknown, Nat Marquez PA-C [address] [address] 05/10/2025 9:15 AM EDT Appointment [address] [place] [address] Jessy Andersen NP 73 [place] [address] documented as of this encounter Visit Diagnoses Not on filedocumented in this encounter Additional Health Concerns Infection Onset Date Last Indicated Resolved Time CoV-Risk 12/21/2021 12/21/2021 01/01/2022 1:22 AM EDT Assessment Noted Time PHQ-2 Depression Total Score: 0 07/30/19 10:09 AM EDT documented as of this encounter Care Teams Human Resources Director Relationship Specialty Start Date End Date Jacquelyn Chandler MD [address] [place] [address] PCP - General Internal Medicine 12/01/17 01/28/23 Jessy Andersen NP [address] [place] [address] PCP - General Nurse Practitioner 01/29/23 12/15/24 Jessy Andersen NP 70 [place] [address] PCP - General Nurse Practitioner 12/16/24 documented as of this encounter Additional Source Comments The information contained in this document represents components of the legal health record. It is not the complete legal health record.[facility]
--- OUTSIDE RECORDS SUMMARY | 2024-12-29 10:41 | XMS_ITS | Encounter Summary ---
Author Organization [facility] Address [address] [place] [address] [place] [address] Phone Care Team Providers Care Ceramic Products Sales Engineer Name Role Phone Jacquelyn Chandler MD Primary Care Provider Jessy Andersen WATER METER READER Primary Care Provider Jessy Andersen WATER METER READER Primary Care Provider Encounter Details Date Type Department Care Team (Late st Contact Info) Description 09/28/2019 Procedure Pass [facility] - [address] [address] Social History Tobacco Use Types Packs/Day Years [...] Contact Info) Description 09/28/2024 Procedure Pass [address] [place] [address] 01/02/2025 3:30 PM EST Office Visit [facility] Rehabilitation Services 380 [place] [address] Brooke Pressley MD [address] [facility] [address] [place] [address] Kim Braun, PT 380 [place] [address] 01/23/2025 2:45 PM EST Office Visit [facility] Gastroenterology Clinic 10 [place] [address] Unknown, Unknown, Nat Marquez PA-C [address] [address] 05/10/2025 9:15 AM EDT Appointment [address] [place] [address] Jessy Andersen WATER METER READER 73 [place] [address] documented as of this encounter Visit Diagnoses Not on filedocumented in this encounter Additional Health Concerns Infection Onset Date Last Indicated Resolved Time CoV-Risk 12/21/2021 12/21/2021 01/01/2022 1:22 AM EDT documented as of this encounter Care Teams Ceramic Products Sales Engineer Relationship Specialty Start Date End Date Jacquelyn Chandler MD [address] [place] [address] 1 [place] [address] PCP - General Internal Medicine 12/01/17 01/28/23 Jessy Andersen NP [address] [place] [address] PCP - General Nurse Practitioner 01/29/23 12/15/24 Jessy Andersen NP 70 [place] [address] PCP - General Nurse Practitioner 12/16/24 documented as of this encounter Additional Source Comments The information contained in this document represents components of the legal health record. It is not the complete legal health record.[facility]
--- OUTSIDE RECORDS SUMMARY | 2024-12-29 10:41 | XMS_ITS | Encounter Summary ---
Author Organization [facility] Address [address] [facility] [address] [place] [address] Phone Care Team Providers Care Sales Agent Protective Service Name Role Phone Dinh Keane MATERIAL HANDLING CREW SUPERVISOR Primary Care Provider Dinh Keane MATERIAL HANDLING CREW SUPERVISOR Primary Care Provider Encounter Details Date Type Department Care Team (Late st Contact Info) Description 12/23/2023 Transcribe Orders Virtual Department 30 [place] [address] Dinh Keane NP [address] [place] [address] Screening for osteoporosis (Primary Dx); Chronic bilateral [...] Pass [facility] - [address] [place] [address] 01/02/2025 3:30 PM EST Office Visit [facility] Rehabilitation Services 380 [place] [address] Brooke Pressley MD [address] [place] [address] [address] [place] [address] Kim Braun, PT 380 [place] [address] 01/23/2025 2:45 PM EST Office Visit [facility] Gastroenterology Clinic 10 [place] [address] Unknown, Unknown, Nat Marquez PA-C [address] [address] 05/10/2025 9:15 AM EDT Appointment [facility] - [address] [place] [address] Dinh Keane, MATERIAL HANDLING CREW SUPERVISOR [address] [place] [address] documented as of this encounter Results * BD DXA AXIAL (SPINE) WITH HIP (10/04/2024 10:41 AM EDT) Anatomical Region Laterality Modality Bone Density Bone Density 10/04/2024 10:3 0 AM EDT Impressions 10/05/2024 12:30 PM EDT Interpretation: Normal bone mineral density. Narrative 10/05/2024 12:30 PM EDT Referred By: DINH KEANE Indications: Osteoporosis Scanner: TweepsMap A with serial# of [id number] located at [facility] Bone Density Scan (DXA) 10/04/24 Details of [...] -2.5), or Osteoporosis (T-score <= -2.5). At [facility], T-scores are compared to peak bone density [...] Referred By: DINH KEANE Indications: Osteoporosis Scanner: [employer]epsMap A with serial# of [id number] located at [facility] Bone Density Scan (DXA) 10/04/24 Details of [...] -2.5), or Osteoporosis (T-score <= -2.5). At [facility], T-scores are compared to peak bone density [...] Normal bone mineral density. us Dinh Keane MATERIAL HANDLING CREW SUPERVISOR IMG BD BONE DENSITY DE XA [...] there is normal echogenicity. The right kidney sjujfrwg84.6 cm in length. There is no evidence [...] bladder. Post void residual volumemeasuring 17 mL's. [facility] Tyra [facility] MATERIAL HANDLING CREW SUPERVISOR IMG US RENAL Final Result documented in [...] as of this encounter Care Teams Sales Agent Protective Service Relationship Specialty Start Date End Date Dinh Keane NP PCP - General Nurse Practitioner 01/29/23 12/15/24 Dinh Keane NP 70 [place] [address] PCP - General Nurse Practitioner 12/16/24 documented as of this encounter Additional Source Comments The information contained in this document represents components of the legal health record. It is not the complete legal health record.[facility]
--- OUTSIDE RECORDS SUMMARY | 2024-12-29 10:41 | XMS_ITS | Encounter Summary ---
Author Organization [employer] Address [address] [place] [address] 7t [place] [address] Care Team Providers Care Certified Adapted Physical Educator Name Role Phone [facility] Primary Care Provider [phone] Encounter Details Date Type Department Care Team (Late st Contact Info) Description 02/06/2023 Orders Only [facility] Information Management [address] [place] [address] [facility] Jessy [facility] 70 [place] [address] Social History Tobacco Use Types Packs/Day Years [...] 03/24/2025 11:40 AM EST Office Visit Gerhard [facility] 70 [place] [address] [facility] Jessy [facility] 70 [place] [address] documented as of this encounter Procedures Procedure Name Priority Date/Time Associated Diagnosis Comments MAMMOGRAPHY Routine 02/03/2023 documented in this encounter Results * Mammography (02/03/2023) Anatomical Region Laterality Modality Other Jessy Andersen [facility] Result - Final documented in this encounter Visit Diagnoses Not on filedocumented in this encounter Care Teams Certified Adapted Physical Educator Relationship Specialty Start Date End Date Jessy Andersen FNP 70 [place] [address] PCP - General Family Medicine 10/01/22 documented as of this encounter
--- OUTSIDE RECORDS SUMMARY | 2024-12-29 10:41 | XMS_ITS | Encounter Summary ---
Author Organization [facility] Address [address] [place] [address] [place] [address] Phone Care Team Providers Care Propagation Manager Name Role Phone Jacquelyn Chandler MD Primary Care Provider Jessy Andersen HOUSING MANAGEMENT OFFICER Primary Care Provider Jessy Andersen HOUSING MANAGEMENT OFFICER Primary Care Provider Encounter Details Date Type Department Care Team (Late st Contact Info) Description 09/23/2021 Procedure Pass [facility] - [address] [place] [address] Social History Tobacco Use Types Packs/Day Years [...] Contact Info) Description 09/28/2024 Procedure Pass [address] [place] [address] 01/02/2025 3:30 PM EST Office Visit [facility] Rehabilitation Services [address] [place] [address] Brooke Pressley MD 299 [facility] [address] [place] [address] Kim Braun, PT 380 [place] [address] 01/23/2025 2:45 PM EST Office Visit [facility] Gastroenterology Clinic 10 [place] [address] Unknown, Unknown, Nat Marquez PA-C [address] [address] 05/10/2025 9:15 AM EDT Appointment [address] [place] [address] Jessy Andersen NP [address] [place] [address] documented as of this encounter Visit Diagnoses Not on filedocumented in this encounter Additional Health Concerns Infection Onset Date Last Indicated Resolved Time CoV-Risk 12/21/2021 12/21/2021 01/01/2022 1:22 AM EDT Assessment Noted Time PHQ-2 Depression Total Score: 0 07/30/19 10:09 AM EDT documented as of this encounter Care Teams Propagation Manager Relationship Specialty Start Date End Date Jacquelyn Chandler MD [address] [place] [address] PCP - General Internal Medicine 12/01/17 01/28/23 Jessy Andersen NP [address] [place] [address] PCP - General Nurse Practitioner 01/29/23 12/15/24 Jessy Andersen NP 70 [place] [address] PCP - General Nurse Practitioner 12/16/24 documented as of this encounter Additional Source Comments The information contained in this document represents components of the legal health record. It is not the complete legal health record.[facility]
--- OUTSIDE RECORDS SUMMARY | 2024-12-29 10:41 | XMS_ITS | Encounter Summary ---
Author Organization [facility] Address [address] [place] [address] [place] [address] Phone Care Team Providers Care Sander And Polisher Name Role Phone Jacquelyn Chandler MD Primary Care Provider [phone] Jessy Andersen LAWN MOWER MECHANIC Primary Care Provider Jessy Andersen LAWN MOWER MECHANIC Primary Care Provider Encounter Details Date Type Department Care Team (Late st Contact Info) Description 11/25/2019 Procedure Pass OR Admitting Dept - [facility] Department [address] [place] [address] Social History Tobacco Use Types Packs/Day Years [...] Contact Info) Description 09/28/2024 Procedure Pass [address] [place] [address] 01/02/2025 3:30 PM EST Office Visit [facility] Rehabilitation Services 380 [place] [address] Brooke Pressley MD 299 [facility] [address] [place] [address] Kim Braun, PT 380 [place] [address] 01/23/2025 2:45 PM EST Office Visit [facility] Gastroenterology Clinic 10 [place] [address] Unknown, Unknown, Nat Marquez PA-C [address] [address] 05/10/2025 9:15 AM EDT Appointment [address] [place] [address] Jessy Andersen NP 73 [place] [address] documented as of this encounter Visit Diagnoses Not on filedocumented in this encounter Additional Health Concerns Infection Onset Date Last Indicated Resolved Time CoV-Risk 12/21/2021 12/21/2021 01/01/2022 1:22 AM EDT documented as of this encounter Care Teams Sander And Polisher Relationship Specialty Start Date End Date Jacquelyn Chandler MD [address] [place] [address] 1 [place] [address] PCP - General Internal Medicine 12/01/17 01/28/23 Jessy Andersen NP [address] [place] [address] PCP - General Nurse Practitioner 01/29/23 12/15/24 Jessy Andersen NP 70 [place] [address] PCP - General Nurse Practitioner 12/16/24 documented as of this encounter Additional Source Comments The information contained in this document represents components of the legal health record. It is not the complete legal health record.[facility]
--- OUTSIDE RECORDS SUMMARY | 2024-12-29 10:41 | XMS_ITS | Encounter Summary ---
Author Organization [facility] Address [address] [place] [address] [place] [address] Phone Care Team Providers Care Soda Clerk Name Role Phone Jacquelyn Chandler MD Primary Care Provider [phone] [facility] MANAGER PHOTO Primary Care Provider Jessy Andersen MANAGER PHOTO Primary Care Provider Encounter Details Date Type Department Care Team (Latest Contact Info) Description 10/17/2019 Transcribe Orders [address] [place] [address] Seth Jeter MD [address] [place] [address] [email or web address] Abdominal pain, RLQ (Primary Dx) Social History [...] Contact Info) Description 09/28/2024 Procedure Pass [address] [place] [address] 01/02/2025 3:30 PM EST Office Visit [facility] Rehabilitation Services 380 [place] [address] Brooke Pressley MD 299 [facility] [address] [place] [address] Kim Braun, PT 380 [place] [address] 01/23/2025 2:45 PM EST Office Visit [facility] Gastroenterology Clinic 10 [place] [address] Unknown, Unknown, Nat Marquez PA-C [address] [address] 05/10/2025 9:15 AM EDT Appointment [address] [place] [address] Jessy Andersen, AMBIKA [address] [place] [address] documented as of this encounter Results * Creatinine/eGFR (10/17/2019 3:24 PM EDT) CREATININE 1.00 0.5 - 1.5 mg/dL [facility] EGFR 60 >59 mL/min/1.7 3m2 [facility] Comment:Estimated glomerular filtration rate calculated using the CKD-EPI equation. Blood 10/17/2019 3:24 PM EDT 10/17/2019 3:26 PM EDT us Seth Jeter MD LAB BLOOD ORDERABLES Final R esult [address] [address] * BUN (10/17/2019 3:24 PM EDT) BUN 18 6 - 19 mg/dL [facility] Blood 10/17/2019 3:24 PM EDT 10/17/2019 3:26 PM EDT us Seth Jeter MD LAB BLOOD ORDERABLES Final R esult Performing Organization Address [facility] Co de Phone Number [address] [address] documented in this encounter Visit Diagnoses Diagnosis Abdominal pain, RLQ- Primary documented in this encounter Additional Health Concerns Infection Onset Date Last Indicated Resolved Time CoV-Risk 12/21/2021 12/21/2021 01/01/2022 1:22 AM EDT documented as of this encounter Care Teams Soda Clerk Relationship Specialty Start Date End Date Jacquelyn Chandler MD [address] [place] [address] [email or web address] PCP - General Internal Medicine 12/01/17 01/28/23 Jessy Andersen NP [address] [place] [address] PCP - General Nurse Practitioner 01/29/23 12/15/24 Jessy Andersen NP [address] [place] [address] PCP - General Nurse Practitioner 12/16/24 documented as of this encounter Additional Source Comments The information contained in this document represents components of the legal health record. It is not the complete legal health record.[facility]
--- OUTSIDE RECORDS SUMMARY | 2024-12-29 10:41 | XMS_ITS | Encounter Summary ---
Author Organization [facility] Address [address] [place] [address] [place] [address] Phone Care Team Providers Care Electric Knife Operator Name Role Phone Jacquelyn Chandler MD Primary Care Provider Jessy Andersen DATA SERVICES DEVELOPER Primary Care Provider Jessy Andersen DATA SERVICES DEVELOPER Primary Care Provider Encounter Details Date Type Department Care Team (Late st Contact Info) Description 01/10/2020 Procedure Pass [address] [address] Social History Tobacco Use Types Packs/Day Years [...] Contact Info) Description 09/28/2024 Procedure Pass [address] [place] [address] 01/02/2025 3:30 PM EST Office Visit [facility] Rehabilitation Services 380 [place] [address] Brooke Pressley MD 299 [facility] [address] [place] [address] Kim Braun, PT 380 [place] [address] 01/23/2025 2:45 PM EST Office Visit [facility] Gastroenterology Clinic 10 [place] [address] Unknown, Unknown, Nat Marquez PA-C [address] [address] 05/10/2025 9:15 AM EDT Appointment [address] [place] [address] Jessy Andersen DATA SERVICES DEVELOPER 73 [place] [address] documented as of this encounter Visit Diagnoses Not on filedocumented in this encounter Additional Health Concerns Infection Onset Date Last Indicated Resolved Time CoV-Risk 12/21/2021 12/21/2021 01/01/2022 1:22 AM EDT documented as of this encounter Care Teams Electric Knife Operator Relationship Specialty Start Date End Date Jacquelyn Chandler MD [address] [place] [address] 1 [place] [address] PCP - General Internal Medicine 12/01/17 01/28/23 Jessy Andersen NP [address] [place] [address] PCP - General Nurse Practitioner 01/29/23 12/15/24 Jessy Andersen NP 70 [place] [address] PCP - General Nurse Practitioner 12/16/24 documented as of this encounter Additional Source Comments The information contained in this document represents components of the legal health record. It is not the complete legal health record.[facility]
--- OUTSIDE RECORDS SUMMARY | 2024-12-29 10:41 | XMS_ITS | Encounter Summary ---
Author Organization [facility] Address [address] [place] [address] [place] [address] Phone Care Team Providers Care Utility Supervisor Boat [employer] Plant Name Role Phone Jacquelyn Chandler MD Primary Care Provider [phone] [facility] SAGGER SOAK Primary Care Provider Jessy Andersen SAGGER SOAK Primary Care Provider Encounter Details Date Type Department Care Team (Late st Contact Info) Description 12/24/2019 Procedure Pass [address] [place] [address] Social History Tobacco Use Types Packs/Day Years [...] Contact Info) Description 09/28/2024 Procedure Pass [address] [place] [address] 01/02/2025 3:30 PM EST Office Visit [facility] Rehabilitation Services 380 [place] [address] Brooke Pressley MD 299 [facility] [address] [place] [address] Kim Branu, PT 380 [place] [address] 01/23/2025 2:45 PM EST Office Visit [facility] Gastroenterology Clinic 10 [place] [address] Unknown, Unknown, Nat Marquez PA-C [address] [address] 05/10/2025 9:15 AM EDT Appointment [address] [place] [address] Jessy Andersen SAGGER SOAK 73 [place] [address] documented as of this encounter Visit Diagnoses Not on filedocumented in this encounter Additional Health Concerns Infection Onset Date Last Indicated Resolved Time CoV-Risk 12/21/2021 12/21/2021 01/01/2022 1:22 AM EDT documented as of this encounter Care Teams Utility Supervisor Boat [employer] Plant Relationship Specialty Start Date End Date Jacquelyn Chandler MD [address] [place] [address] 1 [place] [address] PCP - General Internal Medicine 12/01/17 01/28/23 Jessy Andersen NP [address] [place] [address] PCP - General Nurse Practitioner 01/29/23 12/15/24 Jessy Andersen NP 70 [place] [address] PCP - General Nurse Practitioner 12/16/24 documented as of this encounter Additional Source Comments The information contained in this document represents components of the legal health record. It is not the complete legal health record.[facility]
--- OUTSIDE RECORDS SUMMARY | 2024-12-29 10:41 | XMS_ITS | Encounter Summary ---
Author Organization [facility] Address [address] [place] [address] Phone Care Team Providers Care Before And After School Daycare Worker Name Role Phone Jessy Andersen FLOOR PERSON Primary Care Provider Jessy Andersen FLOOR PERSON Primary Care Provider Encounter Details Date Type Department Care Team (Late st Contact Info) Description 06/22/2024 Procedure Pass [facility], [address] [address] Social History Tobacco Use Types Packs/Day Years [...] Contact Info) Description 09/28/2024 Procedure Pass [address] [place] [address] 01/02/2025 3:30 PM EST Office Visit [facility] Rehabilitation Services [address] [place] [address] Brooke Pressley MD [address] [place] [address] 119 [place] [address] Kim Braun, PT 380 [place] [address] 01/23/2025 2:45 PM EST Office Visit [facility] Gastroenterology Clinic [address] [place] [address] Unknown, Unknown, Nat Marquez PA-C [address] [place] [address] 05/10/2025 9:15 AM EDT Appointment [address] [place] [address] Jessy Andersen NP [address] [place] [address] documented as of this encounter Visit Diagnoses Not on filedocumented in this encounter Additional Health Concerns Assessment Noted Time PHQ-2 Depression Total Score: 0 09/02/19 10:16 AM EDT documented as of this encounter Care Teams Before And After School Daycare Worker Relationship Specialty Start Date End Date Jessy Andersen NP PCP - General Nurse Practitioner 01/29/23 12/15/24 Jessy Andersen NP 70 [place] [address] PCP - General Nurse Practitioner 12/16/24 documented as of this encounter Additional Source Comments The information contained in this document represents components of the legal health record. It is not the complete legal health record.[facility]
--- OUTSIDE RECORDS SUMMARY | 2024-12-29 10:41 | XMS_ITS | Encounter Summary ---
Author Organization [facility] Address [address] [place] [address] [place] [address] Phone Care Team Providers Care Inking Machine Tender Name Role Phone Jessy Andersen LIVESTOCK RANCH HAND Primary Care Provider Jessy Andersen LIVESTOCK RANCH HAND Primary Care Provider Reason for Referral * MRI/CAT Scan - Closed Specialty Diagnoses / Procedures Referred By Gabriele canales Referred To Contact Radiology Diagnoses Memory problem Balance problem Tremor Procedures MRI Brain Jessy Andersen NP [address] [place] [address] Phone: tel: fax: Referral ID Status Reason Start Date Expiration Date Visits Re quested Visits Authorized [id number] Closed 06/22/2024 06/22/2025 1 1 Encounter Details Date Type Department Care Team (Late st Contact Info) Description 06/22/2024 Transcribe Orders Virtual Department 30 [place] [address] Jessy Andersen NP [address] [place] [address] Memory problem (Primary Dx); Balance problem; Tremor [...] 09/28/2024 Procedure Pass [facility] - [address] [place] [address] 01/02/2025 3:30 PM EST Office Visit [facility] Rehabilitation Services 380 [place] [address] Brooke Pressley MD 299 [facility] [address] [place] [address] Kim Braun, PT 380 [place] [address] 01/23/2025 2:45 PM EST Office Visit [facility] Gastroenterology Clinic 10 [place] [address] Unknown, Unknown, Nat Marquez PA-C [address] [address] [email or web address] 05/10/2025 9:15 AM EDT Appointment [address] [place] [address] Jessy Andersen, AMBIKA [address] [place] [address] documented as of this encounter Results * [...] clinician's provided indication for this examination in [facility]:Outside Radiology Order; tremor TECHNIQUE: MRI BRAIN WITHOUT [...] documented as of this encounter Care Teams Inking Machine Tender Relationship Specialty Start Date End Date Jessy Andersen NP PCP - General Nurse Practitioner 01/29/23 12/15/24 Jessy Andersen NP 70 [place] [address] PCP - General Nurse Practitioner 12/16/24 documented as of this encounter Additional Source Comments The information contained in this document represents components of the legal health record. It is not the complete legal health record.[facility]
--- OUTSIDE RECORDS SUMMARY | 2024-12-29 10:41 | XMS_ITS | Encounter Summary ---
Author Organization [facility] Address [address] [place] [address] Phone Care Team Providers Care Paper Reel Operator Name Role Phone Jacquelyn Chandler MD Primary Care Provider Jessy Andersen LEAF CONDITIONER HELPER Primary Care Provider Jessy Andersen LEAF CONDITIONER HELPER Primary Care Provider Reason for Referral * MRI/CAT Scan - Closed Specialty Diagnoses / Procedures Referred By Gabriele canales Referred To Contact Radiology Diagnoses Memory loss Numbness Procedures MRI Brain Taqueria Aj MD Phone: tel: fax: [email or web address] Referral ID Status Reason Start Date Expiration Date Visits Re quested Visits Authorized [id number] Closed 01/09/2020 04/08/2020 1 1 Encounter Details Date Type Department Care Team (Latest Contact Info) Description 01/10/[address] [facility] Department [address] [place] [address] Taqueria Aj MD [address] [place] [address], [address] [place] [address] [email or web address] Memory loss (Primary Dx); Numbness; TIA [...] Contact Info) Description 09/28/2024 Procedure Pass [address] [place] [address] 01/02/2025 3:30 PM EST Office Visit [facility] Rehabilitation Services 380 [place] [address] Brooke Pressley MD 299 [facility] [address] [place] [address] Kim Braun, PT 380 [place] [address] 01/23/2025 2:45 PM EST Office Visit [facility] Gastroenterology Clinic [address] [place] [address] Unknown, Unknown, Nat Marquez PA-C [address] [address] 05/10/2025 9:15 AM EDT Appointment [address] [place] [address] Jessy Andersen, AMBIKA [address] [place] [address] documented as of this encounter Results * [...] as of this encounter Care Teams Paper Reel Operator Relationship Specialty Start Date End Date Jacquelyn Chandler MD [address] [place] [address] [email or web address] PCP - General Internal Medicine 12/01/17 01/28/23 Jessy Andersen NP [address] [place] [address] PCP - General Nurse Practitioner 01/29/23 12/15/24 Jessy Andersen NP [address] [place] [address] PCP - General Nurse Practitioner 12/16/24 documented as of this encounter Additional Source Comments The information contained in this document represents components of the legal health record. It is not the complete legal health record.[facility]
--- OUTSIDE RECORDS SUMMARY | 2024-12-29 10:41 | XMS_ITS | Encounter Summary ---
Author Organization [facility] Address [address] [place] [address] [address] [place] [address] Phone Care Team Providers Care Recycling Specialist Name Role Phone Jessy Andersen CONTRACTOR GENERAL ENGINEERING Primary Care Provider Jessy Andersen CONTRACTOR GENERAL ENGINEERING Primary Care Provider Encounter Details Date Type Department Care Team (Late st Contact Info) Description 03/11/2024 Ancillary Orders [facility], X-Ray - [address] [place] [address] Jessy Andersen NP [address] [place] [address] Acute cough (Primary Dx) Social History Tobacco [...] Procedure Pass [facility] - [address] [place] [address] 01/02/2025 3:30 PM EST Office Visit [facility] Rehabilitation Services [address] [place] [address] Brooke Pressley MD [address] [place] [address] [address] [place] [address] Kim Braun, PT 380 [place] [address] 01/23/2025 2:45 PM EST Office Visit [facility] Gastroenterology Clinic 10 [place] [address] Unknown, Unknown, Nat Maqruez PA-C [address] [address] 05/10/2025 9:15 AM EDT Appointment [address] [place] [address] Jessy Andersen, AMBIKA [address] [place] [address] documented as of this encounter Results * [...] clinician's provided indication for this examination in [facility]: Cough COMPARISON: 07/03/2022, 01/17/2022 FINDINGS: Devices/Tubes/Lines: None. Lungs: Few linear opacities in the left base. Pleura: No pleural effusion or pneumothorax. Heart/Mediastinum: Stable size and contour of the cardiac silhouette. Bones/Soft Tissues: Multilevel spondylosis and bilateral acromioclavicular arthropathy. Procedure Note Stella Velasquez MD - 03/11/2024 XR CHEST PA AND LATERAL 2 VIEWS Referring clinician's provided indication for this examination in [facility]:Cough COMPARISON: 07/03/2022, 01/17/2022 FINDINGS: Devices/Tubes/Lines: None. Lungs: Few linear opacities in the left base. Pleura: No pleural effusion or pneumothorax. Heart/Mediastinum: Stable size and contour of the cardiac silhouette. Bones/Soft Tissues: Multilevel spondylosis and bilateral acromioclaviculararthropathy. IMPRESSION: Similar linear opacity in the left base, favored to represent an area ofscarring. No new focal airspace consolidation. Jessy Tyra Frontiero CONTRACTOR GENERAL ENGINEERING IMG XR CHEST Final Result documented in this encounter Visit Diagnoses Diagnosis Acute cough- Primary Acute cough documented in this encounter Additional Health Concerns Assessment Noted Time PHQ-2 Depression Total Score: 0 09/02/19 10:16 AM EDT documented as of this encounter Care Teams Recycling Specialist Relationship Specialty Start Date End Date Jessy Andersen NP PCP - General Nurse Practitioner 01/29/23 12/15/24 Jessy Andersen NP [address] [place] [address] PCP - General Nurse Practitioner 12/16/24 documented as of this encounter Additional Source Comments The information contained in this document represents components of the legal health record. It is not the complete legal health record.[facility]
--- OUTSIDE RECORDS SUMMARY | 2024-12-29 10:41 | XMS_ITS | Clinical Summary ---
Author Organization [facility] Address [address] [place] [address] Phone Care Team Providers Care Senior Pensions Administrator Name Role Phone JaleesaDinh acosta Tyra APPLE [...] BY MOUTH DAILY. CALL OFFICE FOR FOLLOWUP [phone] 12/10/19 22 Active levalbuterol (XOPENEX) 0.31 mg/3 [...] seven (7) days, may remove with nail tamazight remover and continue cycle. 6.6 mL 3 [...] virus 08/01 Atherosclerosis of coronary artery of [place] he[place] rt 08/01/2021 Assessment & Plan (02/13/2022 7:02 AM EST): F/u Cardiology as discussed Assessment & Plan (08/01/2021 1:42 PM EDT): Follow up with Cardiology as discussed Requesting 2nd opinion from [facility] Hyperlipidemia 08/01/2021 Assessment & Plan (02/13/2022 [...] PM EDT): Per your request, referral to [facility] given your persistant symptoms Tick [...] Plan (10/21/2019 3:04 PM EDT): Unlikely of DISPATCH SUPERVISOR origin Assessment & Plan (09/27/2018 3:51 PM [...] - 12/16/2024 11:59 PM EDT Hospital Encounter [facility], X-Ray - [address] [place] [address] Franco Yuen PA-C Discharge Disposition: Home or Self Care 12/16/2024 9:10 AM EDT Office Visit [facility] at [address] [place] [address] Franco Yuen PA-C Acute upper respiratory infection (Primary Dx); Shortness of breath 11/28/2024 11:30 AM EDT Office Visit [facility] [address] [place] [address] Brooke Pressley MD Sharkey, Linda Ann, PT Other abnormalities of gait and mobility (Primary Dx) 11/21/2024 11:30 AM EDT Office Visit [facility] [address] [place] [address] Brooke Pressley MD Sharkey, Linda Ann, PT Other abnormalities of gait and mobility (Primary Dx) 11/14/2024 11:30 AM EDT Office Visit [address] [address] Brooke Pressley MD Sharkey, Linda Ann, PT Other abnormalities of gait and mobility (Primary Dx) 11/07/2024 11:30 AM EDT Office Visit [facility] [address] [place] [address] Brooke Pressley MD Sharkey, Linda Ann, PT Other abnormalities of gait and mobility (Primary Dx) 10/17/2024 9:15 AM EDT Office Visit [address] [address] Brooke Pressley MD Sharkey, Linda Ann, PT Other abnormalities of gait and mobility (Primary Dx) 10/06/2024 10:30 AM EDT Office Visit [facility] Services [address] [place] [address] Brooke Pressley MD Sharkey, Linda Ann, PT Other abnormalities of gait and mobility (Primary Dx) 10/06/2024 Plan of Care Documentation [facility] Services [address] [place] [address] 10/04/2024 10:12 AM EDT - 10/04/2024 11:59 PM EDT Hospital Encounter [facility], Bone Density - [facility] [address] [place] [address] Dinh Keane NP Discharge Disposition: Home or Self Care 10/04/2024 9:23 AM EDT - 10/04/2024 10:11 AM EDT Hospital Encounter [facility] [address] [place] [address] Dinh Keane NP Discharge Disposition: Home or Self Care 10/03/2024 9:42 AM EDT - 10/03/2024 11:59 PM EDT Hospital Encounter [facility] - [address] [place] [address] Dinh Keane NP Discharge Disposition: Home or Self Care 09/28/2024 Transcribe Orders Virtual Department [address] [place] [address] Dinh Keane NP Breast screening (Primary Dx); [...] Contact Info) Description 09/28/2024 Procedure Pass [address] [place] [address] 01/02/2025 3:30 PM EST Office Visit [facility] Rehabilitation Services [address] [place] [address] Brooke Pressley MD 299 [facility] [address] [place] [address] Kim Braun, PT [address] [place] [address] 01/23/2025 2:45 PM EST Office Visit [facility] [address] [place] [address] Unknown, Unknown, Nat Marquez PA-C [address] [address] 05/10/2025 9:15 AM EDT Appointment [place] [address] [place] [address] Dinh Keane, YARD DEMURRAGE CLERK [address] [place] [address] Health Maintenance Due Date Last Done Comments [...] clinician's provided indication for this examination in [facility]: Cough; Pain; Dyspnea (Shortness of Breath) COMPARISON: [...] clinician's provided indication for this examination in [facility]:Cough; Pain; Dyspnea (Shortness of Breath) COMPARISON: XR [...] edited the report originally createdby Kalee Lora. us Franco Yuen PA-C IMG XR LIS ST Final Result * POCT Rapid Strep A (12/16/2024 9:15 AM EDT) Strep A, PCR Not Detected Not Detected [facility] 12/16/2024 9:15 AM EDT 12/16/2024 9:39 AM EDT us Franco Yuen PA-C POINT OF C ARE TEST ORDERABLES Final Result [facility] [place] [address], [facility] [phone] * POCT COVID-19 RT-PCR/Influenza A & B/RSV (Cepheid) (12/16/2024 9:13 AM EDT) [facility] RSV PCR Negative Negative [facility] SARS-CoV-2 (COVID-19) Negative Negative [facility] POC Influenza A PCR Negative Negative [facility] POC Influenza B PCR Negative Negative [facility] 12/16/2024 9:13 AM EDT 12/16/2024 9:51 AM EDT us Franco Yuen PA-C POINT OF C ARE TEST ORDERABLES Final Result [facility] [address] [address], [facility] [phone] * BD DXA AXIAL (SPINE) WITH HIP (10/04/2024 10:41 AM EDT) Anatomical Region Laterality Modality Bone Density Bone Density 10/04/2024 10:3 0 AM EDT Impressions 10/05/2024 12:30 PM EDT Interpretation: Normal bone mineral density. Narrative 10/05/2024 12:30 PM EDT Referred By: DINH KEANE Indications: Osteoporosis Scanner: [employer] A with serial# of [id number] located at [facility] Bone Density Scan (DXA) 10/04/24 Details of [...] -2.5), or Osteoporosis (T-score <= -2.5). At [facility], T-scores are compared to peak bone density [...] Referred By: DINH KEANE Indications: Osteoporosis Scanner: [employer] A with serial# of [id number] located at [facility] Bone Density Scan (DXA) 10/04/24 Details of [...] -2.5), or Osteoporosis (T-score <= -2.5). At [facility], T-scores are compared to peak bone density [...] results. IMPRESSION: Interpretation: Normal bone mineral density. [facility] Tyra Keane YARD DEMURRAGE CLERK IMG BD BONE DENSITY DE XA Final Result * H PYLORI UREA BREATH TEST (10/04/2024 10:32 AM EDT) H.PYLORI C UREA BRTH Negative Negative [facility] MED/PATH SUPERIOR Comment: (NOTE) Result indicates the absence of current Helicobacter pylori infection. Blood 10/04/2024 10:3 2 AM EDT 10/04/2024 10:35 AM EDT [facility] Tyra Keane LAB BLOOD ORDERABLES F inal Result [facility] LAB MED/PATH SUPERIOR [address] [place] [address] * US ABDOMEN LIMITED RIGHT UPPER QUADRANT [...] Noovert hydronephrosis. No sonographically evident renal calculi. [facility] YARD DEMURRAGE CLERK IMG US ABDOMEN Final Result * BI [...] of the results and recommendations. Dinh Keane YARD DEMURRAGE CLERK IMG MG EXAMS Final Result * Hepatitis C antibody, qualitative (11/27/2021 11:43 AM EDT) Pathologist [facility] HCV NON-REACTIV E NON-REACTI VE [facility] Blood 11/27/2021 11:4 3 AM EDT 11/27/2021 11:47 AM EDT Jacquelyn Chandler MD LAB BLOOD ORDERABLES Final R esult [facility] [address] [place], [place] [id number] * COLONOSCOPY FOR RESULT ENTRY ONLY (08/12/2018) Pathologist [facility] Colonoscopy 10 yr recall Historical Provider HEALTH MAINTENANCE Final Result from Last 3 Months or Most Recently Relevant to Health Maintenance Insurance [facility] MEDICARE REPLACEMENT [facility] MEDICARE REPLACEMENT Member Subscriber Plan / Payer ( fective 2021-Present) Name:Danette Sheth Relation to Subscriber:Self Name:Danette Sheth Payer ID:[id number] (NAIC) Group ID:Not on file Type:Medicare Address: [place] [id number] [facility] MEDICARE REPLACEMENT Member Subscriber Plan / Payer ( fective 2021-Present) Name:Danette Sheth Relation to Subscriber:Self Name:Danette Sheth Payer ID:[id number] (NAIC) Group ID:Not on file Type:Medicare Address: [place] [id number] [place] [id number] Care Teams Senior Pensions Administrator Relationship Specialty Start Date End Date Dinh Keane NP [place] [id number] PCP - General Nurse Practitioner 12/16/24 Additional Source Comments The information contained in this document represents components of the legal health record. It is not the complete legal health record.[facility]
--- OUTSIDE RECORDS SUMMARY | 2024-12-29 10:42 | XMS_ITS | Encounter Summary ---
Author Organization [facility] Address [address] [place] [address] [place] [address] Phone Care Team Providers Care Baggage Agent Supervisor Name Role Phone Jacquelyn Chandler MD Primary Care Provider [facility] ac[facility] DRIER BELT CONVEYOR Primary Care Provider 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 Not on file Not on file documented as of this encounter Plan of Treatment Upcoming Encounters Date Type Department Care Team (Late st Contact Info) Description 09/28/2024 Procedure Pass [address] [place] [address] 01/02/2025 3:30 PM EST Office Visit [facility] Rehabilitation Services [address] [place] [address] Brooke Pressley MD [address] [facility] [address] [place] [address] Kim Braun, PT [address] [place] [address] 01/23/2025 2:45 PM EST Office Visit [facility] G[facility] 10 [place] [address] Unknown, Unknown, Nat Marquez PA-C [address] [address] 05/10/2025 9:15 AM EDT Appointment [address] [place] [address] Jessy Andersen, DRIER BELT CONVEYOR [address] [place] [address] documented as of this encounter Results * [...] documented as of this encounter Care Teams Baggage Agent Supervisor Relationship Specialty Start Date End Date Jacquelyn Chandler MD [address] [place] [address] [email or web address] PCP - General Internal Medicine 12/01/17 01/28/23 Jessy Andersen NP [address] [place] [address] PCP - General Nurse Practitioner 01/29/23 12/15/24 Jessy Andersen NP [address] [place] [address] PCP - General Nurse Practitioner 12/16/24 documented as of this encounter Additional Source Comments The information contained in this document represents components of the legal health record. It is not the complete legal health record.[facility]
--- OUTSIDE RECORDS SUMMARY | 2024-12-29 10:42 | XMS_ITS | Encounter Summary ---
Author Organization [facility] Address [address] [place] [address] [place] [address] Phone Care Team Providers Care Case Packer And Sealer Name Role Phone Jacquelyn Chandler MD Primary Care Provider [phone] Jessy Andersen STATISTICAL CLERK Primary Care Provider Jessy Andersen STATISTICAL CLERK Primary Care Provider Encounter Details Date Type Department Care Team (Late st Contact Info) Description 05/10/2020 Ancillary Orders Virtual Department [address] [place] [address] Jacquelyn Chandler MD [address] [place] [address] [email or web address] Pain in finger of left hand Social [...] Contact Info) Description 09/28/2024 Procedure Pass [address] [place] [address] 01/02/2025 3:30 PM EST Office Visit [facility] Rehabilitation Services [address] [place] [address] Brooke Pressley MD 299 [facility] [address] [place] [address] Kim Braun, PT [address] [place] [address] 01/23/2025 2:45 PM EST Office Visit [facility] 10 [place] [address] Unknown, Unknown, Nat Marquez PA-C [address] [address] 05/10/2025 9:15 AM EDT Appointment [address] [place] [address] Jessy Andersen, AMBIKA [address] [place] [address] documented as of this encounter Results * [...] documented as of this encounter Care Teams Case Packer And Sealer Relationship Specialty Start Date End Date Jacquelyn Chandler MD [address] [place] [address] PCP - General Internal Medicine 12/01/17 01/28/23 Jessy Andersen NP [address] [place] [address] PCP - General Nurse Practitioner 01/29/23 12/15/24 Jessy Andersen NP [address] [place] [address] PCP - General Nurse Practitioner 12/16/24 documented as of this encounter Additional Source Comments The information contained in this document represents components of the legal health record. It is not the complete legal health record.[facility]
--- OUTSIDE RECORDS SUMMARY | 2024-12-29 10:42 | XMS_ITS | Encounter Summary ---
Author Organization [facility] Address [address] [place] [address] Phone Care Team Providers Care Internet Marketing Manager Name Role Phone Jacquelyn Chandler MD Primary Care Provider Jessy Andersen CONTROL INTEGRATION ENGINEER Primary Care Provider Jessy Andersen CONTROL INTEGRATION ENGINEER Primary Care Provider Encounter Details Date Type Department Care Team ([facility] Contact Info) Description 12/15/2017 Ancillary Orders [facility],Outside Imaging [address] [place], [place] [phone] System, Provider Not In, [place] [address] Social History Tobacco Use Types Packs/Day Years [...] 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 Not on file Not on file documented as of this encounter Plan of Treatment Upcoming Encounters Date Type Department Care Team ([facility] Contact Info) Description 09/28/2024 Procedure Pass [address] [place] [address] 01/02/2025 3:30 PM EST Office Visit [facility] Rehabilitation Services [address] [place] [address] Brooke Pressley MD [address] [facility] [address] [place] [address] Kim Braun, PT [address] [place] [address] 01/23/2025 2:45 PM EST Office Visit [facility] 10 [place] [address] Unknown, Unknown, Nat Marquez PA-C [address] [address] 05/10/2025 9:15 AM EDT Appointment [address] [place] [address] Jessy Andersen, AMBIKA [address] [place] [address] documented as of this encounter Results * [...] documented as of this encounter Care Teams Internet Marketing Manager Relationship Specialty Start Date End Date Jacquelyn Chandler MD [address] [place] [address] PCP - General Internal Medicine 12/01/17 01/28/23 Jessy Andersen NP [address] [place] [address] PCP - General Nurse Practitioner 01/29/23 12/15/24 Jessy Andersen NP [address] [place] [address] PCP - General Nurse Practitioner 12/16/24 documented as of this encounter Additional Source Comments The information contained in this document represents components of the legal health record. It is not the complete legal health record.[facility]
--- OUTSIDE RECORDS SUMMARY | 2024-12-29 10:42 | XMS_ITS | Encounter Summary ---
Author Organization [facility] Address [address] [place] [address] [place] [address] Phone Care Team Providers Care Glass Lathe Operator Name Role Phone Jacquelyn Chandler MD Primary Care Provider [facility]ma[facility] BASE MANAGER Primary [facility] BASE MANA[facility] Primary Care Provider Encounter Details Date Type Department Care Team (Late st Contact Info) Description 04/29/2018 Ancillary Orders [facility], X-Ray - [address] [place] [address] Jacquelyn Chandler MD [address] [place] [phone] [email or web address] Cervicalgia Social History Tobacco Use Types Packs/Day [...] 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 Not on file Not on file documented as of this encounter Plan of Treatment Upcoming Encounters Date Type Department Care Team (Late st Contact Info) Description 09/28/2024 Procedure Pass [address] [place] [address] 01/02/2025 3:30 PM EST Office Visit [facility] Rehabilitation Services [address] [place] [address] Brooke Pressley MD 299 [facility] [address] [place] [address] Kim Braun, PT [address] [place] [address] 01/23/2025 2:45 PM EST Office Visit [facility] Gastro[facility]ology Clinic 10 [place] [address] Unknown, Unknown, Nat Marquez, LISA-Abimael [address] [address] [email or web address] 05/10/2025 9:15 AM EDT Appointment [place] [address] [place] [address] Jessy Andersen, AMBIKA [address] [place] [address] documented as of this encounter Results * XR CERVICAL SPINE 4-5 VIEWS (04/29/2018 11:11 AM EST) Anatomical Region Laterality Modality C-spine Radiographic Yolie ging 04/29/2018 11:5 4 AM EST Impressions 04/29/2018 11:56 AM EST Mild discogenic endplate changes C5-T1. Normal cervical spine alignment. POS - [id number] Narrative 04/29/2018 11:56 AM EST XR CERVICAL [...] C5-T1. Normal cervical spine alignment. POS - [id number] Jacquelyn Chandler MD IMG XR SPINE Final Result documented in this encounter Visit Diagnoses Diagnosis Cervicalgia Cervicalgia documented in this encounter Additional Health Concerns Infection Onset Date Last Indicated Resolved Time CoV-Risk 12/21/2021 12/21/2021 01/01/2022 1:22 AM EDT documented as of this encounter Care Teams Glass Lathe Operator Relationship Specialty Start Date End Date Jacquelyn Chandler MD [address] [place] [address] [email or web address] PCP - General Internal Medicine 12/01/17 01/28/23 Jessy Andersen NP [address] [place] [address] PCP - General Nurse Practitioner 01/29/23 12/15/24 Jessy Andersen NP [address] [place] [address] PCP - General Nurse Practitioner 12/16/24 documented as of this encounter Additional Source Comments The information contained in this document represents components of the legal health record. It is not the complete legal health record.[facility]
--- OUTSIDE RECORDS SUMMARY | 2024-12-29 10:42 | XMS_ITS | Encounter Summary ---
Author Organization [facility] Address [address] [place] [address] Phone Care Team Providers Care Integrated Specialist Name Role Phone Jacquelyn Chandler MD Primary Care Provider [phone] [facility] PEOPLE MANAGER Primary Care Provider Jessy Andersen PEOPLE MANAGER Primary Care Provider Encounter Details Date Type Department Care Team (Late st Contact Info) Description 03/25/2018 Ancillary Orders Virtual Department 30 [place] [address] Jacquelyn Chandler MD [address] [place] [address] [email or web address] Low back pain, unspecified back pain laterality, [...] 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 Not on file documented as of this encounter Plan of Treatment Upcoming Encounters Date Type Department Care Team (Late st Contact Info) Description 09/28/2024 Procedure Pass [address] [place] [address] 01/02/2025 3:30 PM EST Office Visit [facility] Rehabilitation Services [address] [place] [address] Brooke Pressley MD 299 [facility] [address] [place] [address] Kim Braun, PT 380 [place] [address] 01/23/2025 2:45 PM EST Office Visit [facility] Gastroenterology Clinic 10 [place] [address] Unknown, Unknown, Nat Marquez, DONN 10 [facility] 2 [place] [address] 05/10/2025 9:15 AM EDT Appointment [address] [place] [address] Jessy Andersen, PEOPLE MANAGER [address] [place] [address] documented as of this encounter Results * XR KNEE 4 OR MORE VIEWS (RIGHT) (03/29/2018 3:47 PM EST) Anatomical Region Laterality Modality Knee Right Radiographic Yolie ging 03/29/2018 4:09 PM EST Impressions 03/29/2018 4:12 PM EST Mild degenerative changes bilaterally. Chondrocalcinosis. POS - [id number] Narrative 03/29/2018 4:12 PM EST HISTORY: Right [...] Mild degenerative changes bilaterally. Chondrocalcinosis. POS - [id number] Jacqeulyn Chandler MD IMG XR LOWER EXTREMITY Final Result * XR LUMBOSACRAL SPINE 4 OR MORE VIEWS (03/29/2018 3:46 PM EST) Anatomical Region Laterality Modality L-spine Radiographic Yolie ging 03/29/2018 4:19 PM EST Impressions 03/29/2018 4:21 PM EST Mild degenerative changes. No compression fractures. POS - [id number] Narrative 03/29/2018 4:21 PM EST HISTORY: Lower [...] degenerative changes. No compression fractures. POS - [id number] Jacquelyn Chandler MD IMG XR SPINE Final [...] documented as of this encounter Care Teams Integrated Specialist Relationship Specialty Start Date End Date Jacquelyn Chandler MD [address] [place] [address] [email or web address] PCP - General Internal Medicine 12/01/17 01/28/23 Jessy Andersen NP [address] [place] [address] PCP - General Nurse Practitioner 01/29/23 12/15/24 Jessy Andersen NP [address] [place] [address] PCP - General Nurse Practitioner 12/16/24 documented as of this encounter Additional Source Comments The information contained in this document represents components of the legal health record. It is not the complete legal health record.[facility]
--- OUTSIDE RECORDS SUMMARY | 2024-12-29 10:42 | XMS_ITS | Encounter Summary ---
Author Organization [facility] Address [address] [place] [address] Phone Care Team Providers Care Tenoner Operator Name Role Phone Rula Ramsey MD Primary Care Provider Jacquelyn Chandler MD Primary Care Provider [facility] Tyra DENTAL OFFICE COORDINATOR Primary Care Provider [facility] Jessy Tyra DENTAL OFFICE COORDINATOR Primary Care Provider Encounter Details Date Type Department Care Team (Late st Contact Info) Description 07/14/2017 Transcribe Orders [facility] Specimen Processing [address] [place] [address] Karen Varela, SKATESMAN [address] [facility], [address] [place] [address] [email or web address] Dysuria (Primary Dx) Social History Tobacco Use [...] Contact Info) Description 09/28/2024 Procedure Pass [address] [place] [address] 01/02/2025 3:30 PM EST Office Visit [facility] Rehabilitation Services [address] [place] [address] Brooke Pressley MD [address] [place] [address] Kim Braun, PT 380 [place] [address] 01/23/2025 2:45 PM EST Office Visit [facility] 10 [place] [address] Unknown, Unknown, Nat Marquez PA-C [address] [address] 05/10/2025 9:15 AM EDT Appointment [address] [place] [address] Jessy Andersen, AMBIKA [address] [place] [address] documented as of this encounter Results * (ABNORMAL) Urine culture (07/14/2017 8:30 AM EDT) Specimen Source/ Description URINE URINE [facility] Special Requests None [facility] GRAM STAIN Moderate WBC'S , NO ORGANISMS SEEN [facility] Culture/Test 10,000 to 100,000 colony forming units per ml ESCHERICHIA COLI(A) [facility] Report Status 07/16/2017 FINAL [facility] ORGANISM ESCHERICHIA COLI [facility] Urine (Urine) 07/14/2017 8:3 0 AM [...] units per ml ESCHERICHIA COLI Karen Varela [facility] MICROBIOLOGY - GENERAL O RDERABLES Final Result Performing Organization Address City/State/[facility] Co de Phone Number [address] [address] documented in this encounter Visit Diagnoses Diagnosis Dysuria- Primary documented in this encounter Additional Health Concerns Infection Onset Date Last Indicated Resolved Time CoV-Risk 12/21/2021 12/21/2021 01/01/2022 1:22 AM EDT documented as of this encounter Care Teams Tenoner Operator Relationship Specialty Start Date End Date Rula Ramsey MD [address] [place] [address], 2[address] [place] [address] [email or web address] PCP - General Internal Medicine 05/18/17 11/30/17 Jacquelyn Chandler MD [address] [place] [phone] PCP - General Internal Medicine 12/01/17 01/28/23 Jessy Andersen NP [address] [place] [address] PCP - General Nurse Practitioner 01/29/23 12/15/24 Jessy Andersen NP [address] [place] [address] PCP - General Nurse Practitioner 12/16/24 documented as of this encounter Additional Source Comments The information contained in this document represents components of the legal health record. It is not the complete legal health record.[facility]
--- OUTSIDE RECORDS SUMMARY | 2024-12-29 10:42 | XMS_ITS | Encounter Summary ---
Author Organization [facility] Address [address] [place] [address] [place] [address] Phone Care Team Providers Care Dope Weigh Operator Name Role Phone Jacquelyn Chandler MD Primary [facility] PLAN EXAMINER Primary Care Provider Jessy Andersen PLAN EXAMINER Primary Care Provider Encounter Details Date Type Department Care Team (Latest Contact Info) Description 01/02/2020 Transcribe Orders [facility] [address] [place] [address] [place] [address] Geovani Kwan MD [address] [place] [address] Chest pain, unspecified type (Primary Dx) Social [...] Contact Info) Description 09/28/2024 Procedure Pass [address] [place] [address] 01/02/2025 3:30 PM EST Office Visit [facility] Rehabilitation Services [address] [place] [address] Brooke Pressley MD [address] [place] [address] Kim Braun, PT 380 [place] [address] 01/23/2025 2:45 PM EST Office Visit [facility]ology [facility] 10 [place] [address] Unknown, Unknown, Nat Marquez PA-C [address] [address] 05/10/2025 9:15 AM EDT Appointment [place] [address] [place] [address] Jessy Andersen, PLAN EXAMINER [address] [facility] [place] [address] documented as of this encounter Results * CBC and differential (01/02/2020 8:42 AM EST) WBC 5.27 4.00 - 11.00 K/uL [facility] Comment:Note Reference Range updates to all CBC and Differential results. RBC 4.66 3.72 - 5.30 M/uL [facility] HGB 12.8 11.4 - 15.9 g/dL [facility] Comment:Note updated Referen ce Ranges for all CBC and Differential results. HCT 40.0 34.2 - 46.8 % [facility] PLT 270 140 - 430 K/uL [facility] MCV 85.8 78.0 - 97.0 fL [facility] MCH 27.5 25.0 - 33.0 pg [facility] MCHC 32.0 32.0 - 36.0 g/dL [facility] RDW 13.0 11.0 - 16.0 % [facility] MPV 11.2 8.4 - 12.8 fl [facility] NRBC 0.00 0 /100 WBCs [facility] ABSOLUTE NRBC 0.00 0 K/uL [facility] DIFF METHOD Auto [facility] NEUTS 53.2 43.0 - 75.0 % [facility] LYMPHS 35.9 18.2 - 47.4 % [facility] MONOS 7.6 4.00 - 11.00 % [facility] EOS 2.1 0.0 - 8.0 % [facility] BASOS 0.8 0.0 - 2.0 % [facility] Granulocytes, immature (%) 0.4 0.0 - 0.9 % [facility] ABSOLUTE NEUTS 2.81 1.80 - 7.70 K/uL [facility] ABSOLUTE LYMPHS 1.89 1.00 - 3.10 K/uL [facility] ABSOLUTE MONOS 0.40 0.20 - 0.80 K/uL [facility] ABSOLUTE EOS 0.11 0.00 - 0.80 K/uL [facility] ABSOLUTE BASOS 0.04 0.00 - 0.09 K/uL [facility] Granulocytes, immature 0.02 0.00 - 0.05 K/uL [facility] Blood 01/02/2020 8:42 AM EST 01/02/2020 8:44 AM EST us Geovani Kwan MD LAB BLOOD ORDERABLES Final R esult [facility] 30 [place] [address] * Basic metabolic panel (01/02/2020 8:42 AM EST) SODIUM 140 133 - 146 mmol/L [facility] CHLORIDE 103 96 - 108 mmol/L [facility] POTASSIUM 4.5 3.3 - 5.1 mmol/L [facility] CO2 28 21 - 35 mmol/L [facility] BUN 14 6 - 19 mg/dL [facility] CREATININE 1.00 0.5 - 1.5 mg/dL [facility] GLUCOSE 96 70 - 99 mg/dL [facility] CALCIUM 9.7 8.4 - 10.3 mg/dL [facility] EGFR 60 >59 mL/min/1.7 3m2 [facility] Comment:Estimated glomerular filtration rate calculated using the CKD-EPI equation. ANION GAP 14 10 - 20 mmol/L [facility] Blood 01/02/2020 8:42 AM EST 01/02/2020 8:44 AM EST Geovani Kwan MD LAB BLOOD ORDERABLES Final R esult Performing Organization Address City/State/[facility] Co de Phone Number [facility] [address] [place] [address] documented in this encounter Visit Diagnoses Diagnosis Chest pain, unspecified type- Primary documented in this encounter Additional Health Concerns Infection Onset Date Last Indicated Resolved Time CoV-Risk 12/21/2021 12/21/2021 01/01/2022 1:22 AM EDT documented as of this encounter Care Teams Dope Weigh Operator Relationship Specialty Start Date End Date Jacquelyn Chandler MD [address] [place] [address] [email or web address] PCP - General Internal Medicine 12/01/17 01/28/23 Jessy Andersen NP [address] [place] [address] PCP - General Nurse Practitioner 01/29/23 12/15/24 Jessy Andersen NP [address] [place] [address] PCP - General Nurse Practitioner 12/16/24 documented as of this encounter Additional Source Comments The information contained in this document represents components of the legal health record. It is not the complete legal health record.[facility]
--- OUTSIDE RECORDS SUMMARY | 2024-12-29 10:42 | XMS_ITS | Encounter Summary ---
Author Organization [facility] Address [address] [place] [phone] Phone Care Team Providers Care Screen Stretcher Name Role Phone Jacquelyn Chandler MD Primary Care Provider [facility] CADD MANAGER Primary Care Provider Jessy Andersen CADD MANAGER Primary Care Provider Encounter Details Date Type Department Care Team (Late st Contact Info) Description 03/29/2018 Ancillary Orders Virtual Department 30 [place] [address] Jacquelyn Chandler MD [address] [place] [address] [email or web address] Low back pain, unspecified back pain laterality, [...] 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 Not on file Not on file documented as of this encounter Plan of Treatment Upcoming Encounters Date Type Department Care Team (Late st Contact Info) Description 09/28/2024 Procedure Pass [address] [place] [address] 01/02/2025 3:30 PM EST Office Visit [facility] Rehabilitation Services [address] [place] [address] Brooke Pressley MD [address] [facility] [address] [place] [address] Kim Braun, PT 380 [place] [address] 01/23/2025 2:45 PM EST Office Visit [facility] 10 [place] [address] Unknown, Unknown, Nat Marquez, DONN 10 [facility] 2 [place] [address] 05/10/2025 9:15 AM EDT Appointment [address] [place] [address] Jessy Andersen, CADD MANAGER [address] [place] [address] documented as of this encounter Results * XR Knee Standing (Bilateral, Single View Only) (03/29/2018 3:48 PM EST) Anatomical Region Laterality Modality Knee Right, Knee Bilateral Radio graphic Imaging 03/29/2018 4:09 PM EST Impressions 03/29/2018 4:12 PM EST Mild degenerative changes bilaterally. Chondrocalcinosis. POS - [id number] Narrative 03/29/2018 4:12 PM EST HISTORY: Right [...] Mild degenerative changes bilaterally. Chondrocalcinosis. POS - [id number] Jacquelyn Chandler MD IMG XR LOWER EXTREMITY [...] documented as of this encounter Care Teams Screen Stretcher Relationship Specialty Start Date End Date Jacquelyn hCandler MD [address] [address] [email or web address] PCP - General Internal Medicine 12/01/17 01/28/23 Jessy Andersen NP [address] [address] PCP - General Nurse Practitioner 01/29/23 12/15/24 Jessy Andersen NP [address] [place] [address] PCP - General Nurse Practitioner 12/16/24 documented as of this encounter Additional Source Comments The information contained in this document represents components of the legal health record. It is not the complete legal health record.[facility]
--- OUTSIDE RECORDS SUMMARY | 2024-12-29 10:42 | XMS_ITS | Encounter Summary ---
Author Organization [facility] Address [address] [place] [address] Phone Care Team Providers Care Tube Balancer Name Role Phone Jacquelyn Chandler MD Primary Care Provider [phone] Jessy Andersen 911 DISPATCHER Primary Care Provider Jessy Andersen 911 DISPATCHER Primary Care Provider Encounter Details Date Type Department Care Team (Latest Contact Info) Description 03/13/2020 Transcribe Orders [address] [place] [address] Jacquelyn Chandler MD [address] [place] [address] [email or web address] Hyperlipidemia, unspecified [...] Contact Info) Description 09/28/2024 Procedure Pass [address] [place] [address] 01/02/2025 3:30 PM EST Office Visit [facility] Rehabilitation Services [address] [place] [address] Brooke Pressley MD [address] [facility] [address] [place] [address] Kim Braun, PT 380 [place] [address] 01/23/2025 2:45 PM EST Office Visit [facility]astroenterology Clinic 10 [place] [address] Unknown, Unknown, Nat Marquez PA-C 10 [facility] 2 [place] [address] 05/10/2025 9:15 AM EDT Appointment [address] [place] [address] Jessy Andersen, AMBIKA [address] [facility] [place] [address] documented as of this encounter Results * (ABNORMAL) LFTs (hepatic panel) (03/13/2020 10:40 AM EST) ALKALINE PHOSPHATASE 73 39 - 117 U/L [facility] TOTAL BILIRUBIN 0.5 0.0 - 1.2 mg/dL [facility] DIRECT BILIRUBIN <0.2 0 - 0.3 mg/dL [facility] Bilirubin (Indirect) NOT CALCULATED 0 - 1.5 mg/dL [facility] AST 25 0 - 37 U/L [facility] ALT 15 0 - 40 U/L [facility] TOTAL PROTEIN 8.1(H) 6.5 - 8.0 g/dL [facility] ALBUMIN 4.5 3.9 - 4.8 g/dL [facility] GLOBULIN 3.6 1 - 4.8 g/dL [facility] A/G Ratio 1.25 1.00 - 4.80 RATIO [facility] Blood 03/13/2020 10:4 0 AM EST 03/13/2020 10:48 AM EST Jacquelyn Chandler MD LAB BLOOD ORDERABLES Final R esult Performing Organization Address City/[facility]/ZIP Co de Phone Number [address] [address] * (ABNORMAL) 25-OH vitamin D (03/13/2020 10:40 AM EST) 25 OH VIT D (TOTAL) 24(L) 30 - 60 ng/mL [facility] Blood 03/13/2020 10:4 0 AM EST 03/13/2020 10:48 AM EST Jacquelyn Chandler MD LAB BLOOD ORDERABLES Final R esult Performing Organization Address City/[facility]/ZIP Co de Phone Number [address] [address] * (ABNORMAL) CBC (03/13/2020 10:40 AM EST) WBC 4.81 4.00 - 11.00 K/uL [facility] Comment:Note Reference Range updates to all CBC and Differential results. RBC 4.77 3.72 - 5.30 M/uL [facility] HGB 13.0 11.4 - 15.9 g/dL [facility] Comment:Note updated Referen ce Ranges for all CBC and Differential results. HCT 41.2 34.2 - 46.8 % [facility] PLT 274 140 - 430 K/uL [facility] MCV 86.4 78.0 - 97.0 fL [facility] MCH 27.3 25.0 - 33.0 pg [facility] MCHC 31.6(L) 32.0 - 36.0 g/dL [facility] RDW 13.2 11.0 - 16.0 % [facility] MPV 10.7 8.4 - 12.8 fl [facility] NRBC 0.00 0 /100 WBCs [facility] ABSOLUTE NRBC 0.00 0 K/uL [facility] Blood 03/13/2020 10:4 0 AM EST 03/13/2020 10:48 AM EST us Jacquelyn Chandler MD LAB BLOOD ORDERABLES Final R esult Performing Organization Address City/[facility]/ZIP Co de Phone Number [address] [address] * Basic metabolic panel (03/13/2020 10:40 AM EST) SODIUM 142 133 - 146 mmol/L [facility] CHLORIDE 104 96 - 108 mmol/L [facility] POTASSIUM 4.3 3.3 - 5.1 mmol/L [facility] CO2 28 21 - 35 mmol/L [facility] BUN 19 6 - 19 mg/dL [facility] CREATININE 1.00 0.5 - 1.5 mg/dL [facility] GLUCOSE 96 70 - 99 mg/dL [facility] CALCIUM 10.1 8.4 - 10.3 mg/dL [facility] EGFR 60 >59 mL/min/1.7 3m2 [facility] Comment:Estimated glomerular filtration rate calculated using the CKD-EPI equation. ANION GAP 14 10 - 20 mmol/L [facility] Blood 03/13/2020 10:4 0 AM EST 03/13/2020 10:48 AM EST Jacquelyn Chandler MD LAB BLOOD ORDERABLES Final R esult Performing Organization Address City/[facility]/ZIP Co de Phone Number [address] [address] * (ABNORMAL) Lipid panel (03/13/2020 10:40 AM EST) HDL 50 mg/dL [facility] Comment: Interpretation <40 mg/dL: Low HDL cholesterol (major risk factor for CHD) Greater than or equal to 60 mg/dL: High HDL cholesterol ( negative risk factor for CHD) HDL - cholesterol is affected by a number of factors, e.g. smoking, excerise, hormones, sex and age. CHOLESTEROL 229 0 - 240 mg/dL [facility] TRIGLYCERIDES 115 30 - 160 mg/dL [facility] LDL 156(H) 50 - 129 mg/dL [facility] Comment: LDL levels in terms of risk for coronary heart disease: <100 mg/dL: Optimal 100-129 mg/dL: Near or above optimal 130-159 mg/dL: Borderline high 160-189 mg/dL: High >190 mg/dL: Very High CARDIAC RISK RATIO 4.6(H) 3.3 - 4.4 C [facility] Blood 03/13/2020 10:4 0 AM EST 03/13/2020 10:48 AM EST us Jacquelyn Chandler MD LAB BLOOD ORDERABLES Final R esult [address] [address] documented in this encounter Visit Diagnoses Diagnosis Hyperlipidemia, unspecified hyperlipidemia type- Primary Hypertension, unspecified type Vitamin D deficiency, unspecified Nonspecific elevation of levels of transaminase or lactic acid dehydrogenase (LDH) documented in this encounter Additional Health Concerns Infection Onset Date Last Indicated Resolved Time CoV-Risk 12/21/2021 12/21/2021 01/01/2022 1:22 AM EDT documented as of this encounter Care Teams Tube Balancer Relationship Specialty Start Date End Date Jacquelyn Chandler MD [address] [place] [address] [email or web address] PCP - General Internal Medicine 12/01/17 01/28/23 Jessy Andersen NP [address] [place] [address] PCP - General Nurse Practitioner 01/29/23 12/15/24 Jessy Andersen NP [address] [place] [address] PCP - General Nurse Practitioner 12/16/24 documented as of this encounter Additional Source Comments The information contained in this document represents components of the legal health record. It is not the complete legal health record.[facility]
--- OUTSIDE RECORDS SUMMARY | 2024-12-29 10:42 | XMS_ITS | Encounter Summary ---
Author Organization [facility] Address [address] [place] [address] Phone Care Team Providers Care Brazer Induction Name Role Phone Jacquelyn Chandler MD Primary Care Provider Jessy Andersen VESSEL MASTER Primary Care Provider Jessy Andersen VESSEL MASTER Primary Care Provider Encounter Details Date Type Department Care Team (Latest Contact Info) Description 02/03/2018 Transcribe Orders [address] [place] [address] Richa Leach, LISA-C 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 Not on file Not on file documented as of this encounter Plan of Treatment Upcoming Encounters Date Type Department Care Team (Late st Contact Info) Description 09/28/2024 Procedure Pass [address] [place] [address] 01/02/2025 3:30 PM EST Office Visit [facility] Rehabilitation Services [address] [place] [address] Brooke Pressley MD 299 [facility] [address] [place] [address] Kim Braun, PT 380 [place] [address] 01/23/2025 2:45 PM EST Office Visit [facility] Gastro[facility]ology Clinic 10 [place] [address] Unknown, Unknown, Nat Marquez PA-C [address] [address] 05/10/2025 9:15 AM EDT Appointment [address] [place] [address] Jessy Andersen, AMBIKA [address] [place] [address] documented as of this encounter Results * Immunoglobulin A (02/03/2018 8:43 AM EST) IgA 220 70 - 400 mg/dL [facility] Blood 02/03/2018 8:43 AM EST 02/03/2018 8:50 AM EST us Richa Leach PA-C LAB BLOOD ORDERABLES Final Resu lt [facility] 30 [place] [address] * C-Reactive Protein (02/03/2018 8:43 AM EST) C REACTIVE PROTEIN 3.6 0.0 - 4.0 mg/L [facility] Blood 02/03/2018 8:43 AM EST 02/03/2018 8:50 AM EST us Richa Leach PA-C LAB BLOOD ORDERABLES Final Resu lt [facility] [address] [place] [address] * Comprehensive metabolic panel (02/03/2018 8:43 AM EST) SODIUM 140 133 - 146 mmol/L [facility] POTASSIUM 4.3 3.3 - 5.1 mmol/L [facility] CHLORIDE 103 96 - 108 mmol/L [facility] CO2 25 21 - 35 mmol/L [facility] BUN 15 6 - 19 mg/dL [facility] CREATININE 1.00 0.5 - 1.5 mg/dL [facility] GLUCOSE 88 70 - 99 mg/dL [facility] ALBUMIN 4.5 3.9 - 4.8 g/dL [facility] TOTAL PROTEIN 8.0 6.5 - 8.0 g/dL [facility] CALCIUM 9.9 8.4 - 10.3 mg/dL [facility] ALKALINE PHOSPHATASE 67 39 - 117 U/L [facility] TOTAL BILIRUBIN 0.5 0.0 - 1.2 mg/dL [facility] AST 26 0 - 37 U/L [facility] ALT 28 0 - 40 U/L [facility] GLOBULIN 3.5 1 - 4.8 g/dL [facility] EGFR 61 >59 mL/min/1.7 3m2 [facility] Comment:If patient is black, multiply result by 1.159. Estimated glomerular filtration rate calculated using the CKD-EPI equation. ANION GAP 16 10 - 20 mmol/L [facility] Blood 02/03/2018 8:43 AM EST 02/03/2018 8:50 AM EST us Richa Leach PA-C LAB BLOOD ORDERABLES Final Resu lt Performing Organization Address [facility] Co de Phone Number [address] [address] * (ABNORMAL) CBC (02/03/2018 8:43 AM EST) WBC 5.96 3.40 - 11.20 K/uL [facility] RBC 4.86(H) 3.80 - 4.80 M/uL [facility] HGB 13.2 12.0 - 15.0 g/dL [facility] HCT 41.7 36.0 - 46.0 % [facility] PLT 274 130 - 400 K/uL [facility] MCV 85.8 79.0 - 98.0 [facility] MCH 27.2 27.0 - 34.8 pg [facility] MCHC 31.7 31.5 - 36.0 g/dL [facility] RDW 13.6 10.8 - 14.6 % [facility] MPV 11.7 9.4 - 12.4 [facility] NRBC 0.00 0.00 /100 WBCs [facility] ABSOLUTE NRBC 0.00 0.00 K/uL [facility] Blood 02/03/2018 8:43 AM EST 02/03/2018 8:50 AM EST us Richa Leach PA-C LAB BLOOD ORDERABLES Final Resu lt Performing Organization Address City/[facility]/ZIP Co de Phone Number [address] [address] documented in this encounter Visit Diagnoses Diagnosis Abdominal pain, unspecified abdominal location- Primary documented in this encounter Additional Health Concerns Infection Onset Date Last Indicated Resolved Time CoV-Risk 12/21/2021 12/21/2021 01/01/2022 1:22 AM EDT documented as of this encounter Care Teams Brazer Induction Relationship Specialty Start Date End Date Jacquelyn Chandler MD [address] [place] [address] [email or web address] PCP - General Internal Medicine 12/01/17 01/28/23 Jessy Andersen NP [address] [place] [address] PCP - General Nurse Practitioner 01/29/23 12/15/24 Jessy Andersen NP [address] [place] [address] PCP - General Nurse Practitioner 12/16/24 documented as of this encounter Additional Source Comments The information contained in this document represents components of the legal health record. It is not the complete legal health record.[facility]
--- OUTSIDE RECORDS SUMMARY | 2024-12-29 10:42 | XMS_ITS | Encounter Summary ---
Author Organization [facility] Address [address] [facility] [address] [place] [id number] Phone Care Team Providers Care Metal Ceiling Hanger Name Role Phone Jacquelyn Chandler MD [facility] Primary Care Provider Encounter Details Date Type Department Care Team (Late st Contact Info) Description 01/06/2020 Transcribe Orders [address] [place] [address] Taqueria Govea MD [address] [place] [address], [address] [place] [address] Social History Tobacco Use Types Packs/Day Years [...] Contact Info) Description 09/28/2024 Procedure Pass [address] [place] [address] 01/02/2025 3:30 PM EST Office Visit [facility] [address] [place] [address] Brooke Pressley MD [address] [facility] [address] [place] [address] Kim Braun, PT [address] [place] [address] 01/23/2025 2:45 PM EST Office Visit [facility] [address] [place] [address] Unknown, Unknown, Nat Marquez PA-C [address] [address] 05/10/2025 9:15 AM EDT Appointment [address] [place] [address] Jessy Andersen NP [address] [place] [address] documented as of this encounter Visit Diagnoses Not on filedocumented in this encounter Additional Health Concerns Infection Onset Date Last Indicated Resolved Time CoV-Risk 12/21/2021 12/21/2021 01/01/2022 1:22 AM EDT documented as of this encounter Care Teams Metal Ceiling Hanger Relationship Specialty Start Date End Date Jacquelyn Chandler MD [address] [place], [place] [address] [address] PCP - General Internal Medicine 12/01/17 01/28/23 Jessy Andersen NP [address] [place] [address] PCP - General Nurse Practitioner 01/29/23 12/15/24 Jessy Andersen NP [address] [place] [address] PCP - General Nurse Practitioner 12/16/24 documented as of this encounter Additional Source Comments The information contained in this document represents components of the legal health record. It is not the complete legal health record.[facility]
== END 2024-12-29 10:14 | disposition home or self-care (01) ==
LOC: HO.HPS 09:20
PROVIDERS: PCP Nurse Practitioner; Visit Provider Hospitalist
DX: J06.9 Acute upper respiratory infection, unspecified (principal); J84.9 Interstitial pulmonary disease, unspecified; T78.40XA Allergy, unspecified, initial encounter; R06.09 Other forms of dyspnea; G47.10 Hypersomnia, unspecified; J45.20 Mild intermittent asthma, uncomplicated
CPT/HCPCS: 99214

== ENCOUNTER → 2024-12-29 09:20 | Outpatient (BNVA) | payer OTHER, SELFPAY | PROVIDERS: PCP Nurse Practitioner; Visit Provider Hospitalist | DX: T78.40XA Allergy, unspecified, initial encounter (principal); J84.9 Interstitial pulmonary disease, unspecified; J06.9 Acute upper respiratory infection, unspecified; J45.20 Mild intermittent asthma, uncomplicated; R06.09 Other forms of dyspnea; G47.10 Hypersomnia, unspecified | CPT/HCPCS: 99212 ==

== ENCOUNTER 2025-01-25 12:22 | Outpatient (RCR) | payer OTHER, SELFPAY ==
--- NOTE | 2025-01-31 15:32 | MHC.SP.ADU ---
Referring provider: Brooke Pressley MD Reason for Referral: Memory and word retrieval Type of Treatment: 21631 Standardized Cognitive Performance Testing, per hour Date of Plan of Treatment: 01/25/25 Onset of Symptoms/Illness: 01/26/20 Date Treatment Started: 01/25/25 Medical Diagnosis: R41.89 Other symptoms and signs involving cognitive functions and awareness Primary Speech Language Diagnosis: I69.911 Memory deficit History Danette Burnett is a 69 year old Cypriot and Liberian speaking female referred for a cognitive linguistic assessment by Brooke Pressley MD from the Neurology and Sleep office. Danette reports worsening memory issues for the past 5 years. She also reports having an episode of sudden aphasia approximately 18 months ago. During this episode, she was going to say something, but what came out she says was ?nonsense words? and then she had a hard time getting any words out. She says she was seen by a doctor and was told that ?no stroke was found.? Danette notes that her brother and son both have diagnosed epilepsy and she wonders if this could have also happened to her. Danette reports forgetfulness, forgetting her keys, forgetting to take a turn when driving in a familiar area, forgetting to turn the stove off and burning food, and needing to use alarms as reminders. Danette says she has shown up to an appointment the day before thinking that was her appointment time. She also reports difficulty finding words in both languages, stating, ?I have to think which are the correct words to say and I forget names.? Danette was seen by Dr. Pressley in July for evaluation of memory issues, gait instability, and tremors. Danette believes she?s had brain imaging done before, but does not recall where it was done. Danette reports feeling like her ?whole body is shaking inside? and notices some tremor in her hands. Danette reports completing high school level education and denies having any learning difficulties or needing any accommodations when attending school. Danette had her hearing tested in 2015 or 2016 and has hearing aids, which she stopped using because she felt that she ?hears the same way with or without them.? Danette recently completed physical therapy earlier this year for balance issues, but reports she does not feel it has helped much. Danette lives with others in a private residence and has 4 adult children. She is not currently employed. Danette reports history of reflux, arthritis, asthma, bronchitis, ear infections, hearing loss, pneumonia, and sinusitis. Medical History: Other: Medical History Asthma ILD (interstitial lung disease) Gait instability Hypersomnia Snoring Cognitive impairment Surgical History S/P cardiac cath History of ear surgery History of section History of tonsillectomy History of cardiac cath Social History: Employment Status: Unemployed Highest level of education obtained: Completed High School/GED Current Living Situation: Private Home Assistive Devices in use: Glasses/Contacts Comment: Past Speech Language Therapy: N/A Other Therapies Seen in Current Calendar Year: Physical Therapy Other: PT for balance Assessment Tests of Speech & Lang Adults: BNT Clinical Impression: Intact Observations: LANGUAGE: Danette completed the Davenport Naming Test (BNT) Short Form. She was presented with simple line drawings, which she was instructed to name in a confrontation naming task. Danette correctly named 14 out of 15 images independently. When presented with an image depicting a ?tripod,? Danette indicated she did not know what it was, but when given a choice of 4 written words, she correctly selected the target word ?tripod? and further described it, ?Oh I did not realize it was supposed to be the stand for cameras.? No hesitancies, paraphasias, or word groping was noted during this task. Tests of Cognition: RBANS Clinical Impression: Intact Observations: COGNITION: Danette?s cognitive linguistic skills were evaluated using the RBANS: The Repeatable Battery for the Assessment of Neuropsychological Status (RBANS-Updated Form A). The RBANS assesses aspects of cognitive memory, language, and attention skills. The RBANS is considered a screening battery for cognitive function used with adolescents and adults, ages 12 to 89 years. Composite domains assessed in this evaluation are: Immediate Memory, Visuospatial/Constructional, Language, Attention, and Delayed Memory. Assessed domains and their scores are summarized below: IMMEDIATE MEMORY: These subtests assess an individual?s ability to remember a small amount of information immediately after it is presented. Danette was presented with a list of 10 random words and was instructed to repeat back as many words as she could remember from the list (List Learning). She initially recalled 5 items from the list of 10. On each subsequent repetition, she recalled 5-6 different items. After listening to a spoken paragraph, Danette was instructed to re-tell the story with as much detail as she could remember (Story memory). On initial presentation, she correctly recalled 5 details and when the story was repeated was able to recall 10 out of the 12 details, including dates, locations, numbers, and other specific details. List Learning Total Score: 23 Scaled Score: 6 Percentile Rank: 9% Interpretation: Low Average Story Memory Total Score: 15 Scaled Score: 8 Percentile Rank: 25% Interpretation: Average Immediate Memory Index score: 83 Percentile Rank: 13% Interpretation: Low Average VISUOSPATIAL/CONSTRUCTIONAL: These subtests assess an individual?s visuospatial skills and perception of spatial relationships. Danette was first instructed to draw an accurate copy of a figure presented to her (Figure Copy) and then to identify lines that matched based on orientation and placement (Line Orientation). Danette included all but one components in her drawing. Danette was able to match lines based on orientation without difficulty. Danette denies experiencing any visual deficits. Figure Copy Total Score: 18 Scaled Score: 10 Percentile Rank: 50% Interpretation: Average Line Orientation Total Score: 17 Percentile Group: 51-75 Interpretation: Average Visuospatial/Constructional Index score: 100 Percentile Rank: 50% Interpretation: Average LANGUAGE: These subtests assess an individual?s word retrieval skills. Danette correctly named line images in 9 out of 10 trials during a confrontational naming task (Picture Naming). No hesitancies or paraphasias were observed with confrontational naming and throughout conversational speech. Danette named most items in Liberian and 3 in Cypriot. She described clothespin as ?clip for clothes? and indicated she always just called it a ?clip.? Danette named 13 relevant items in a given category in 60 seconds (Semantic Fluency) without any perseverations or repetitions. Picture Naming Total Score: 9 Percentile Group: 17-25 Interpretation: Low Average Semantic Fluency Total Score: 13 Scaled Score: 4 Percentile Rank: 2% Interpretation: Borderline Language Index score: 85 Percentile Rank: 16% Interpretation: Low Average ATTENTION: These subtests assess an individual?s capacity to remember and manipulate both visually and orally presented information in short-term memory storage. Danette was first instructed to repeat back number series that were between 2-9 digits long (Digit Span). She recalled up to 5 digits at a time without error and had trouble remembering longer number series. Danette was also instructed to code markings with numbers (Coding). She coded 34 markers without making any errors. Digit Span Total Score: 8 Scaled Score: 7 Percentile Rank: 16% Interpretation: Low Average Coding Total Score: 34 Scaled Score: 6 Percentile Rank: 9% Interpretation: Low Average Attention Index score: 79 Percentile Rank: 8% Interpretation: Borderline DELAYED MEMORY: These subtests assess an individual?s retrieval of information from long-term memory. Danette was able to recall 5 out of 10 unrelated words in a list after a short time delay (List Recall). She also recognized most words from the list when asked yes/no questions (i.e. ?Was ?market? on the list??) (answered correctly in 20/20 trials). She did recall 10 out of 12 details from a story, demonstrating average performance on story recall as well. Danette was then instructed to redraw from memory a copy of the figure presented to her at the beginning of the testing period (Figure Recall). Her copy included most components, however, some errors were made in placement. List Recall Total Score: 5 Percentile Group: 26-50 Interpretation: Average List Recognition Total Score: 20 Percentile Group: 51-75 Interpretation: Average Story Recall Total Score: 10 Scaled Score: 11 Percentile Rank: 63% Interpretation: Average Figure Recall Total Score: 13 Scaled Score: 10 Percentile Rank: 50% Interpretation: Average Delayed Memory Index Score: 102 Percentile Rank: 55% Interpretation: Average Sum of Index Scores: 449 Total Scale: 85 Percentile: 16% Interpretation: Low Average Lindsay Gibbs (1998). Repeatable Battery for the Assessment of Neuropsychological Status [Manual]. [employer] [place]: Emilia. Impressions and Recommendations Summary: Today Danette demonstrated low average to average performance on cognitive linguistic screening measures, which does not indicate further speech intervention at this time. Danette presented with relative strengths on subtests measuring her word retrieval, visuospatial skills, and delayed memory. She was able to recall words from a randomized list and re-tell a narrative after it was repeated to her, and also after a time delay when >20 minutes had gone by and she had completed other tasks. No word finding deficit was apparent within conversation. Patient was able to formulate complete sentences with appropriate use of semantics and syntactic structure. Encouragingly, patient demonstrated use of compensatory strategies to support her memory. For example, during today?s session, she repeated words to herself (verbal rehearsal), counted on her fingers (visual/tactile cuing), and closed her eyes, reporting that she was visualizing each item as ?pictures? in her head (visualization). Additionally, patient reports using alarms at home, calendars, and writing notes. She even organizes her notes for easier retrieval (i.e. grocery lists organized by [employer]). Recommend continue workup with Neurology related to patient?s concerns of forgetfulness and tremors. She may benefit from an updated audiological evaluation to assess for hearing loss and for any amplification needs, as hearing loss may be an associated risk factor for cognitive decline. Recommendation for Speech Therapy: NA:Typical Evaluation Recommended Referrals to be Discussed with Primary Care Provider: Audiological Evaluation Neurology Patient Education: Completed: Yes Patient/Caregiver Education: Described Results of Evaluation Patient expressed understanding of evaluation Comments/Barriers to Learning: It was a pleasure meeting and working with Danette. Please do not hesitate to contact the [facility] with any questions related to the content of this report or if we can be of further assistance in her care. Title Inspector Clinican/Clinical Fellow: No Supervisory Statement: N/A Speech Language Pathologist: Karishma Bui M.A., CCC-AREA MECHANIC
== END 2025-02-03 15:18 | disposition home or self-care (01) ==
LOC: HO.SH 12:22
PROVIDERS: PCP Nurse Practitioner; Visit Provider Psychiatry & Neurology Neurology
DX: R41.89 Other symptoms and signs involving cognitive functions and awareness (principal)
CPT/HCPCS: 96125

== ENCOUNTER 2025-02-03 09:35 | Outpatient (REF) | payer OTHER, SELFPAY ==
--- NOTE | ~2025-02-03 | XR_ITS ---
EXAMINATION: XR CHEST CLINICAL INFORMATION: J84.9 - Interstitial pulmonary disease, unspecified COMPARISON: None available. TECHNIQUE: PA and lateral views FINDINGS: Hyperinflated lungs. Bilateral apical lung scarring. Pulmonary reticular pattern. No gross consolidation, pleural fissure pneumothorax. Cardiomediastinal silhouette size is normal. Multilevel spondylosis. Osteopenia versus osteoporosis. Degenerative changes in the acromioclavicular joints. XR/XR chest 2V IMPRESSION: Consider COPD emphysematous type changes. Electronically signed by: Gonzalo Lewis MD 02/03/2025 10:36 AM DELIO FRENCH
== END 2025-02-03 09:36 | disposition home or self-care (01) ==
LOC: HO.XRAY 09:35
PROVIDERS: PCP Nurse Practitioner; Visit Provider Hospitalist
DX: J84.9 Interstitial pulmonary disease, unspecified (principal); T78.40XA Allergy, unspecified, initial encounter; J45.20 Mild intermittent asthma, uncomplicated; G47.10 Hypersomnia, unspecified
CPT/HCPCS: 71046; 99212

== ENCOUNTER 2025-02-03 09:35 | Outpatient (AMB) | payer OTHER, SELFPAY ==
[2025-02-03 09:41] VITALS: BP 118/60; PULSE 96; O2SAT 97; BMI 27.3
--- NOTE | 2025-02-03 09:41 | MHC.OFFVIS ---
Vital Signs 02/03/25 09:41 Height 5 ft 5 in Weight 164 lb 3.91 oz BMI 27.3 BP 118/60 Blood Pressure Location Lt brachial Position Sitting Pulse 96 Pulse Source Pulse Oximeter Pulse Oximetry (%) 97 Oxygen Delivery Method Room Air Intake Visit Reasons: Asthma Dispatcher Radio Required: No Accompanied by: Self / Same As Patient Allergies No Known Allergies Allergy (Verified 02/03/25 09:44) HPI Comments Details: The patient is a 69 year woman with a diagnosis of asthma in addition to rheumatoid arthritis presenting with worsening cough and palpitations. She was evaluated by Cardiology and had a full cardiac evaluation including cardiac catheterization not finding a clear cardiac source for her palpitations. She has also had Holter monitors and she has not been able to identify anything. Her palpitations have very significant and she does become very aware them and they are uncomfortable for her. She does have daytime drowsiness. She is scheduled to undergo a sleep study. Her Melville score is elevated 24. She is going to be home sleep study. However, with her palpitations would not be unreasonable to have an in-lab sleep study if that is nondiagnostic. In the meantime the patient does have a pulmonary function study from [facility] from 2019 which I personally reviewed demonstrating an obstructive ventilatory defect with the FEV1 to FVC of 69%. More recently in 2022 she had PFTs done here at [facility] demonstrating no evidence of any obstructive nor restrictive lung disease. Interestingly she also carries a diagnosis of rheumatoid arthritis. I do not have all the details. She had been seeing a optician apprentice dispensing in the past but then she lost follow-up. In the meantime the patient does have a CT scan from [facility] which I personally reviewed from 2019 demonstrating some increased interstitial markings at the bases of the lungs and some haziness suggesting the possibility of interstitial lung disease. The details not clear if this was going on when she was sick or not but still with a history of connective tissue disease interstitial lung conditions need to be in differential. On exam she does have some fine rales suggesting some degree of fibrosis. Therefore will go ahead and request blood work to assess for inflammatory conditions or hypersensitivity reactions. In addition to that the patient will undergo a repeat chest x-ray and PFTs since it has been sometime. The patient may need additional imaging studies such as CAT scan in the future. The patient is going to undergo the home sleep study and will follow-up with that as well. For now she will continue using her rescue inhaler. Will hold off on any additional maintenance medications until we follow-up with the blood work. 12/29/2024 the patient is here for sick visit. Apparently she was in her usual state health until about 2 weeks ago when she walked into her son's apartment that had been closed for awhile and she started developing some difficulty breathing and shortness of the throat. She started getting sick with fevers. She went to an urgent care. The patient is given a course of doxycycline and also prednisone. Although she could not take the prednisone because it was causing her adverse effects including headaches. Therefore she stopped it. Her chest congestion has improved but she still complaining of significant headaches sinus pressure and pressure on the chest area. She has been using her respiratory inhalers well. She was given an additional maintenance inhaler but she could not tolerate it either. She was making her feel nauseous since it was powdered. Respiratory exam sounds okay right now. Seems like she does have significant sinusitis. Will go ahead and start her on Sudafed and also Afrin to try to open up the nasal passages. In addition to that the patient can start Advair to see if this provides some relief. She has been taking Tylenol. She can also take ibuprofen as needed for some pain relief as far as musculoskeletal symptoms. If her symptoms are not getting better she can call next week and we can do additional blood work and imaging studies. But apparently she did have some baseline laboratories and x-rays at urgent care and she was told that there were okay. She has not appointment in January which will keep. She has any issues prior to this she can always call for further recommendations. 02/03/2025 the patient is here for pulmonary follow-up visit. She is still complaining of chest tightness. [id number] severity. The Advair HFA is not been very helpful. She is still using her rescue inhaler multiple times a day. She feels that heaviness in the chest area. Denies any significant chest congestion. She does have shortness of breath. With activity. Mild degree. She did complete the antibiotics in the prednisone. We did review her PFTs again demonstrating small airways disease consistent with her asthma. In addition to that we did review her sleep study demonstrating equivocal findings of sleep apnea with an AHI of 4.3. Therefore if she continues to have daytime drowsiness we can always consider an in-lab sleep study to get better accurate results. She is going to monitor her symptoms down. For now we are going to go ahead and optimize her respiratory therapy by switching her from Advair HFA to Trelegy. She is also going to get a chest x-ray as she has a history of interstitial lung disease. The patient has respiratory exam is reassuring except for diminished breath sounds. Will go ahead and make sure she gets her vaccines. We did recommend her getting the flu the pneumonia and the RSV vaccine. She is going to go to the pharmacy for those. The patient will follow-up in 6 months if any issues arise she can always call. If she does not like the powder inhalers she can always call to switch to something else. I did prefer Trelegy because of the vilanterol not causing as much tremulousness or palpitations that she has had a history off. [facility], [facility] Medical History Asthma ILD (interstitial lung disease) Gait instability Hypersomnia Snoring Cognitive impairment Surgical History S/P cardiac cath History of ear surgery History of section History of tonsillectomy History of cardiac cath Family History Mother Heart disease Cancer Father Stroke Social History Household Members: Children Household Members Other:: Son Alcohol intake: never Patient Tobacco Use Status: Never used Tobacco Current occupational status: retired Review of Systems Const Reports daytime sleepiness, Reports difficulty sleeping, Reports fever(s) and Reports headache(s) Eyes Reports dry eyes ENT Reports headache(s) and Denies nasal obstruction Card Reports chest pain, Reports palpitations and Reports dyspnea on exertion Resp Reports cough, Reports dyspnea on exertion and Reports wheezing GI Reports dyspepsia Musc Reports as per HPI, Reports myalgias, Reports arthralgias, Reports limited range of motion and Reports stiffness Skin/Breast Denies rash Neuro Reports headache(s) Endo Reports palpitations Nicholas/Lymph Reports no additional complaints Aller/Immun Reports wheezing Physical Exam Vital Signs: Last Vital Signs Pulse 96 02/03/25 09:41 BP 118/60 02/03/25 09:41 Pulse Ox 97 02/03/25 09:41 Oxygen Delivery Method Room Air 02/03/25 09:41 BMI result Body Mass Index 27.3 Const General: comfortable HEENT Head: Yes normocephalic Neck Neck: Yes supple Chest Chest palpation & inspection: normal inspection of the chest Resp Effort & Inspection: normal respiratory effort Auscultation: diminished lung sounds Cardio Heart sounds: S1 normal heart sound present and S2 normal heart sound present GI Palpation (GI): Soft to palpation Skin General skin exam: no rashes or lesions noted Extrem General: Yes no clubbing, cyanosis or edema Assessment & Plan Assessment & Plan (1) ILD (interstitial lung disease): Code(s): J84.9 - Interstitial pulmonary disease, unspecified Category: Medical (2) Allergies: Code(s): T78.40XA - Allergy, unspecified, initial encounter Category: Medical Qualifiers: Encounter type: initial encounter Qualified Code(s): T78.40XA - Allergy, unspecified, initial encounter (3) Dyspnea: Code(s): R06.00 - Dyspnea, unspecified Category: Medical Qualifiers: Dyspnea type: dyspnea on exertion Qualified Code(s): R06.09 - Other forms of dyspnea (4) Hypersomnia: Code(s): G47.10 - Hypersomnia, unspecified Category: Medical (5) Asthma: Code(s): J45.909 - Unspecified asthma, uncomplicated Category: Medical Qualifiers: Asthma complication type: uncomplicated Asthma persistence: intermittent Asthma severity: mild Qualified Code(s): J45.20 - Mild intermittent asthma, uncomplicated Plan stop Advair HFA start Trelegy 200 daily continue JALEEL as needed Home PSH equiva, if non diagnostic, then an inlab study maybe helpful continue singulair CXR F/U 2-3 months Orders: Orders XR chest 2V 02/03/25 J84.9 - Interstitial pulmonary disease, unspecified Medications: New ljwqpakxvln-imujxdhoo-wvbwcrdn 200-62.5-25 mcg (Trelegy Ellipta) 1 inh inhalation DAILY 60 ea 12RF 30 days Coding Level of Care Code Est Pt Level 4 (62969) Diagnoses ILD (interstitial lung disease) J84.9 Allergy, initial encounter T78.40XA Encounter type: initial encounter Dyspnea on exertion R06.09 Dyspnea type: dyspnea on exertion Hypersomnia G47.10 Mild intermittent asthma without complication J45.20 Asthma complication type: uncomplicated Asthma persistence: intermittent Asthma severity: mild Time Spent (min) 16
== END 2025-02-03 10:04 | disposition home or self-care (01) ==
LOC: HO.HPS 09:36
PROVIDERS: PCP Nurse Practitioner; Visit Provider Hospitalist
DX: J84.9 Interstitial pulmonary disease, unspecified (principal); T78.40XA Allergy, unspecified, initial encounter; R06.09 Other forms of dyspnea; G47.10 Hypersomnia, unspecified; J45.20 Mild intermittent asthma, uncomplicated
CPT/HCPCS: 99214

== ENCOUNTER → 2025-02-03 10:13 | Outpatient (BNV) | payer OTHER, SELFPAY | PROVIDERS: PCP Nurse Practitioner; Visit Provider Radiology Diagnostic Radiology | DX: J43.9 Emphysema, unspecified (principal) | CPT/HCPCS: 71046 ==